=== PATIENT | female | born 1995 | race Caucasian/White ===

== ENCOUNTER 2018-03-07 15:52 | Outpatient (CLI) | payer MEDICAID ==
[2018-03-07 16:14] LABS: BILIRUBIN,URINE NEGATIVE (NEGATIVE); GLUCOSE, URINE (UA) NEGATIVE (NEGATIVE); KETONES,URINE (UA) NEGATIVE (NEGATIVE); LEUKOCYTE ESTERASE, URINE NEGATIVE (NEGATIVE); NITRITE,URINE NEGATIVE (NEGATIVE); OCCULT BLOOD,URINE MODERATE (NEGATIVE); PROTEIN,URINE TRACE mg/dL (NEGATIVE); UROBILINOGEN,URINE 0.2 (NORMAL) E.U./dL (NORMAL)
[2018-03-07 16:21] LABS: CLARITY,URINE HAZY (CLEAR)
[2018-03-07 16:22] LABS: BACTERIA,URINE Moderate /HPF (None Seen); MUCUS,URINE Few Strands; SQUAMOUS EPITHELIAL CELL,UR MANY Squamous (<= Few)
== END 2018-03-07 15:53 | disposition home or self-care (01) ==
LOC: LAB 15:52
PROVIDERS: ATTEND Physician Assistant
DX: R30.0 Dysuria (principal)
CPT/HCPCS: 81001; 81003; 87086

== ENCOUNTER 2019-04-29 14:02 | Outpatient (CLI) | payer MEDICAID | END 2019-04-29 14:03 | disposition short-term general hospital (02) | LOC: EMS 14:02 | PROVIDERS: ATTEND Surgery | DX: R13.10 Dysphagia, unspecified (principal); R07.89 Other chest pain | CPT/HCPCS: A0425; A0429; A0999 ==

== ENCOUNTER 2020-12-30 14:44 | Emergency (ER) | payer MEDICAID ==
--- OUTSIDE RECORDS SUMMARY | 2020-12-30 14:48 | EXTERNAL MEDICAL SUMMARY RPT | Continuity of Care Document ---
:1995 Demographics Phone Unavailable Preferred Language Malian Marital Status Unknown Yazidism Affiliation Unknown Race Unknown Ethnic Group Unknown Author Organization [place] Address [address] [phone] Phone Care Team Providers Name Role Phone Pillo Unavailable Unavailable Allergies Encounters Medications date description facility [id number] tramadol hydrochloride 50 MG Oral Table [facility] [id number] Baclofen 10 MG Oral Tablet [facility] [id number] Diazepam 10 MG Oral Tablet [facility] ital [id number] Diazepam 10 MG Oral Tablet [facility] ital [id number] Baclofen 10 MG Oral Tablet [facility] ital [id number] tramadol hydrochloride 50 MG Oral [facility] [id number] Trazodone Hydrochloride 100 MG Oral [facility] [id number] Diazepam 10 MG Oral Tablet [facility] ital [id number] Promethazine Hydrochloride 25 MG Oral [facility] Problems Procedures date description facility [id number] [facility] [id number] [facility] [id number] [facility] [id number] [facility] [id number] [facility] [id number] [facility] [id number] [facility] [id number] [facility] [id number] [facility] [id number] [facility] Results
[2020-12-30] MEDS ORDERED: HYDROmorphone 1 MG/ML CARPUJECT IVP STA ×2 (15:23→16:43)
--- NOTE | 2020-12-30 15:24 | ED Physician Documentation ---
PD HPI WOUND RECHECK - Stated complaint Stated Complaint: INCISION CHECK - Chief complaint Chief Complaint: Wound - Histroy obtained from History obtained from: Patient - Additional information Additional information: She had an oophorectomy on the right done laparoscopically at [facility] 3 days ago. Over the last couple of days has developed a productive cough, increased pain in the pelvis and redness around the suprapubic surgical site. She had a fever of 101.5 this morning. Review of Systems Ten Systems: 10 systems reviewed and negative Constitutional: reports: Fever, Chills Respiratory: reports: Dyspnea, Cough GI: reports: Abdominal Pain PD PAST MEDICAL HISTORY - Present Medications Home Medications: Ambulatory Orders Medication Instructions Recorded Confirmed Baclofen [Lioresal] 10 mg PO TID 12/30/20 12/30/20 Diazepam [Valium] 10 mg PO PRN PRN 12/30/20 12/30/20 Ibuprofen [Motrin] 600 mg PO Q6H PRN 12/30/20 12/30/20 Oxycodone HCl/Acetaminophen 1 - 2 each PO Q6H PRN #14 tablet 12/30/20 [Percocet 5-325 mg Tablet] Sertraline HCl 100 mg PO DAILY 12/30/20 12/30/20 Trazodone HCl 100 mg PO DAILY 12/30/20 12/30/20 levoFLOXacin [Levofloxacin] 500 mg PO DAILY #6 tablet 12/30/20 oxyCODONE [Roxicodone] 5 mg PO Q4-6H 12/30/20 12/30/20 traMADol [Ultram] 50 mg PO Q4-6H 12/30/20 12/30/20 - Allergies Allergies/Adverse Reactions: Allergies Allergy/AdvReac Type Severity Reaction Status Date / Time adhesive Allergy Rash Verified 12/30/20 16:01 Cephalosporins Allergy Hives Verified 12/30/20 16:01 latex Allergy Rash Verified 12/30/20 16:01 metoclopramide [From Reglan] Allergy Anaphylaxis Verified 12/30/20 16:01 Penicillins Allergy Hives Verified 12/30/20 16:01 prochlorperazine Allergy Anaphylaxis Verified 12/30/20 16:01 [From Compazine] PD ED PE NORMAL - Vitals Vital signs reviewed: Yes - General General: Alert and oriented X 3, No acute distress - HEENT HEENT: PERRL, EOMI - Neck Neck: Supple, no meningeal sign, No bony TTP - Cardiac Cardiac: RRR, No murmur - Respiratory Respiratory: No respiratory distress, Clear bilaterally - Abdomen Abdomen: Other (There is slight redness around the suprapubic laparoscopic site. No diffuse tenderness.) - Back Back: No CVA TTP, No spinal TTP - Derm Derm: Normal color, Warm and dry - Neuro Neuro: Alert and oriented X 3, Normal speech Results - Vitals Vitals: Vital Signs - 24 hr 12/30/20 12/30/20 14:51 15:37 Temperature 36.8 C Heart Rate 77 97 Respiratory 16 16 Rate Blood Pressure 117/51 L 105/45 L O2 Saturation 99 100 Oxygen O2 Source Room air - Labs Labs: Laboratory Tests 12/30/20 12/30/20 12/30/20 15:15 15:15 15:15 WBC 7.9 RBC 4.23 Hgb 12.7 Hct 37.2 MCV 87.9 MCH 30.0 MCHC 34.1 RDW 13.2 Plt Count 237 MPV 10.7 Neut # (Auto) 4.1 Lymph # (Auto) 2.8 Karnes # (Auto) 0.8 Eos # (Auto) 0.2 Baso # (Auto) 0.0 Absolute Nucleated RBC 0.00 Nucleated RBC % 0.0 Sodium 137 Potassium 4.2 Chloride 100 L Carbon Dioxide 25 Anion Gap 12.0 BUN 7 Creatinine 0.8 Estimated GFR (MDRD) 86 L Glucose 76 Lactic Acid 1.0 Calcium 9.1 Urine HCG, Qual 12/30/20 16:00 WBC RBC Hgb Hct MCV MCH MCHC RDW Plt Count MPV Neut # (Auto) Lymph # (Auto) Karnes # (Auto) Eos # (Auto) Baso # (Auto) Absolute Nucleated RBC Nucleated RBC % Sodium Potassium Chloride Carbon Dioxide Anion Gap BUN Creatinine Estimated GFR (MDRD) Glucose Lactic Acid Calcium Urine HCG, Qual NEGATIVE PD MEDICAL DECISION MAKING - ED course ED course: 25-year-old woman presents with postoperative fever a few days after an oophorectomy. She does have cellulitis around a suprapubic port site. But also productive cough. Chest x-ray was done without evidence of pneumonia. CT done showing no deep abscess, just the cellulitis seen on exam. Antibiotic choice is limited because of multiple allergies and she is given levofloxacin after review of these. Departure - Departure Disposition: 01 Home, Self Care Clinical Impression: Cough Fever Qualifiers: Fever type: due to other condition Qualified Code(s): R50.81 - Fever presenting with conditions classified elsewhere Cellulitis Qualifiers: Site of cellulitis of trunk: abdominal wall Condition: Good Record reviewed to determine appropriate education?: Yes Instructions: Cellulitis Dc Prescriptions: levoFLOXacin [Levofloxacin] 500 mg PO DAILY #6 tablet Oxycodone HCl/Acetaminophen [Percocet 5-325 mg Tablet] 1 - 2 each PO Q6H PRN #14 tablet PRN Reason: pain Comments: Prescriptions were sent electronically to [facility] in [place]. Return for new or worsening symptoms. Follow-up with your surgeon at [facility], next available appointment. I am prescribing a short course of narcotic pain medication for you. These are potentially dangerous and addictive medications that should be used carefully. These medications may constipate you. Take an grbj-sjb-wbdcucc stool softener (docusate) twice daily with plenty of water while taking these medications. If you go 24 hours without a bowel movement, take [id number] miralax, per package instructions. Do not drink or drive while taking these medications. If you received narcotic or sedating medications while in the emergency department, do not drive for 24 hours. Store this medication in a safe, secure place and out of reach of children. It is a violation of federal law to give or sell this medication to another person or to use in a manner other than prescribed. The ED will not refill narcotic prescriptions, including prescriptions lost or stolen. To dispose of unwanted medications: 1. [facility] at [address] in [place] has a medication drop box. They accept prescription medications (in pill form) Saturday through Saturday 9:00 a.m. to 5:00 p.m. 2. The [facility] [employer] accepts prescription medications (in pill form only) for disposal year round. Call for more information. 3. Contact the [facility] for the next [facility] sponsored prescription drug collection event. , [phone], or [phone]; Note that many narcotic pain relievers also contain Tylenol/acetaminophen. Please ensure that your total dose of acetaminophen from all sources does not exceed 3 g (3000 mg) per day.
[2020-12-30 15:29] LABS: BASOPHILS % (AUTO) 0.4 %; EOSINOPHILS # (AUTO) 0.2 10^3/uL (0.0-0.7); EOSINOPHILS % (AUTO) 2.7 %; HCT - HEMATOCRIT 37.2 % (37.0-47.0); HGB - HEMOGLOBIN 12.7 g/dL (12.0-16.0); LYMPHOCYTES # (AUTO) 2.8 10^3/uL (1.5-3.5); LYMPHOCYTES % (AUTO) 35.1 %; MEAN CORPUSCULAR HGB CONC 34.1 g/dL (32.0-36.0); MEAN CORPUSCULAR VOLUME 87.9 fL (81.0-99.0); MEAN PLATELET VOLUME 10.7 fL (7.9-10.8); MONOCYTES # (AUTO) 0.8 10^3/uL (0.0-1.0); MONOCYTES % (AUTO) 9.7 %; NEUTROPHILS # (AUTO) 4.1 10^3/uL (1.5-6.6); NEUTROPHILS % (AUTO) 51.8 %; PLT - PLATELET COUNT 237 10^3/uL (130-450); RED BLOOD COUNT 4.23 10^6/uL (4.20-5.40); RED CELL DISTRIBUTION WIDTH 13.2 % (12.0-15.0); WHITE BLOOD COUNT 7.9 x10^3/uL (4.8-10.8)
[2020-12-30 15:36] LABS: CALCIUM 9.1 mg/dL (8.5-10.3); CREATININE 0.8 mg/dL (0.4-1.0); POTASSIUM 4.2 mmol/L (3.5-5.0)
[2020-12-30] MEDS ORDERED: IOVERSOL 320 100 ML VIAL IVP ONE (15:41)
--- NOTE | 2020-12-30 15:54 | XRAY Report ---
PROCEDURE: Chest 2 View X-Ray INDICATIONS: cough TECHNIQUE: 2 view(s) of the chest. COMPARISON: None. FINDINGS: Surgical changes and devices: None. Lungs and pleura: No pleural effusions or pneumothorax. Lungs are clear. Mediastinum: Mediastinal contours are normal. Heart size is normal. Bones and chest wall: No suspicious bony abnormalities. Soft tissues appear unremarkable. IMPRESSION: No acute cardiopulmonary pathology. Reviewed by: Jimmy Espinoza MD on 12/30/2020 3:53 PM PDT Approved by: Jimmy Espinoza MD on 12/30/2020 3:53 PM PDT Station ID: [id number]
[2020-12-30 16:27] LABS: HCG UR QUAL NEGATIVE
--- NOTE | 2020-12-30 16:28 | CT Report ---
PROCEDURE: Abdomen/Pelvis WO INDICATIONS: POST OP ABD PAIN. Oophorectomy 3 days ago TECHNIQUE: Noncontrast 5 mm thick sections acquired from the diaphragms to the symphysis. 5 mm coronal and sagi ttal reformats were then performed. For radiation dose reduction, the following was used: automated exposure control, adjustment of mA and/or kV according to patient size. COMPARISON: None. FINDINGS: Image quality: Excellent. ABDOMEN: Lung bases: Lung bases are clear. Heart size is normal. Solid organs: Liver and spleen are normal in size. Gallbladder is unremarkable. Pancreas is normal in contours. No adrenal nodules. Kidneys are normal in size, without hydronephrosis or nephrolithi asis. Peritoneum and bowel: Unenhanced bowel loops demonstrate normal wall thickness and caliber. No free fluid. Trace postsurgical free air along the anterior surface of the liver. No abscess cavity. Surgic al clips in the region of the duodenal bulb. Nodes and vessels: No retroperitoneal or mesenteric adenopathy by size criteria. Aorta and inferior vena cava are normal in caliber. Miscellaneous: No ventral hernias. There is inflammatory change in the subcutaneous fat near midline approximately 8 cm inferior to the umbilicus, possibly postsurgical or possibly representing celluli tic change. No subcutaneous abscess or subcutaneous gas. PELVIS: Genitourinary: Bladder wall thickness is normal. Miscellaneous: No inguinal hernias or adenopathy. Uterus is surgically absent. Bones: No suspicious bony lesions. No vertebral body compression fractures. IMPRESSION: 1. There is minimal residual free air status post very recent pelvic surgery. 2. No abscess cavity. 3. Inflammatory change in the subcutaneous fat near midline approximately 8 cm inferior to the umbili cus. This may potentially be postsurgical or may represent mild cellulitic change. Suggest clinical c orrelation. Reviewed by: Bar Campbell MD on 12/30/2020 4:27 PM PDT Approved by: Bar Campbell MD on 12/30/2020 4:27 PM PDT Station ID: [id number]
[2020-12-30] MEDS ORDERED: levoFLOXacin 500 MG/100 ML 500 MG/100 ML BAG IV STA (16:43)
--- OUTSIDE RECORDS SUMMARY | 2020-12-30 16:44 | EXTERNAL MEDICAL SUMMARY RPT | Continuity of Care Document ---
:1995 Demographics Phone Unavailable Preferred Language American Marital Status Unknown Jewish Affiliation Unknown Race Unknown Ethnic Group Unknown Author Organization [place] Address [address] [phone] Phone Care Team Providers Name Role Phone Pillo Unavailable Unavailable Allergies Encounters Medications date description facility [id number] tramadol hydrochloride 50 MG Oral Table [facility] [id number] Baclofen 10 MG Oral Tablet [facility] 22392875 Diazepam 10 MG Oral Tablet [facility] ital [id number] Diazepam 10 MG Oral Tablet [facility] ital 50888119 Baclofen 10 MG Oral Tablet [facility] ital 87987030 tramadol hydrochloride 50 MG Oral [facility] 56205172 Trazodone Hydrochloride 100 MG Oral [facility] 80134876 Diazepam 10 MG Oral Tablet [facility] ital 56824529 Promethazine Hydrochloride 25 MG Oral [facility] Problems Procedures date description facility [id number] [facility] [id number] [facility] [id number] [facility] [id number] [facility] [id number] [facility] [id number] [facility] [id number] [facility] [id number] [facility] [id number] [facility] [id number] [facility] Results
[2020-12-30 18:09] VITALS: BP 103/72
== END 2020-12-30 18:29 | disposition home or self-care (01) ==
LOC: ED 14:44
DX: N99.89 Other postprocedural complications and disorders of genitourinary system (principal); L76.82 Other postprocedural complications of skin and subcutaneous tissue; L03.311 Cellulitis of abdominal wall; Y83.8 Other surgical procedures as the cause of abnormal reaction of the patient, or of later complication, without mention of misadventure at the time of the procedure
CPT/HCPCS: 36415; 71046; 74176; 80048; 81025; 83605; 85025; 87086; 96365; 96375; 96376; 99283; 99284; J1170

== ENCOUNTER 2021-02-21 16:46 | Outpatient (CLI) | payer MEDICAID | END 2021-02-21 16:47 | disposition critical access hospital (66) | LOC: EMS 16:46 | DX: R56.9 Unspecified convulsions (principal) | CPT/HCPCS: A0425; A0429; A0999 ==

== ENCOUNTER 2021-02-21 16:47 | Emergency (ER) | payer MEDICAID ==
[2021-02-21] MEDS ORDERED: HALOPERIDOL 5 MG/ML VIAL IVP ONE (17:21)
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
[2021-02-21 19:33] VITALS: BP 114/68
== END 2021-02-21 19:32 | disposition home or self-care (01) ==
LOC: EDUNIT# → ED 16:47
DX: R56.9 Unspecified convulsions (principal); Z87.820 Personal history of traumatic brain injury
CPT/HCPCS: 96374; 99283

== ENCOUNTER 2021-02-27 15:30 | Outpatient (CLI) | payer MEDICAID | END 2021-02-27 15:31 | disposition critical access hospital (66) | LOC: EMS 15:30 | DX: R56.9 Unspecified convulsions (principal) | CPT/HCPCS: A0425; A0427; A0999 ==

== ENCOUNTER 2021-02-27 15:45 | Emergency (ER) | payer MEDICAID ==
[2021-02-27] MEDS ORDERED: LORazepam 2 MG/ML VIAL IVP STA (16:02)
--- NOTE | 2021-02-27 16:04 | ED Physician Documentation ---
PD HPI SEIZURE - Stated complaint Stated Complaint: SEIZURE - Chief complaint Chief Complaint: Neuro - History obtained from History obtained from: Patient, Family, EMS - Additional information Additional information: 26-year-old woman with well-established pseudoseizures had an episode today where she fell and hit the her head on the linoleum tile. She presents with severe head and neck pain. She has not seized since the last time I saw her which was about 6 days ago for same. Mom did give her 5 mg of Haldol prior to arrival. Pain radiates down the spine. 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: Ovarian cysts : Kidney stones Psych: Post traumatic stress disorder - Past Surgical History Past Surgical History: Yes General: Appendectomy /OFFICE EQUIPMENT MECHANIC: Hysterectomy, Oophrectomy - Present Medications Home Medications: Ambulatory Orders Medication Instructions Recorded Confirmed Baclofen [Lioresal] 10 mg PO BID 12/30/20 02/27/21 Diazepam [Valium] 10 mg PO QID 12/30/20 02/27/21 Ibuprofen [Motrin] 600 mg PO Q6H PRN 12/30/20 02/27/21 Sertraline HCl 200 mg PO DAILY 12/30/20 02/27/21 Trazodone HCl 50 mg PO DAILY 12/30/20 02/27/21 traMADol [Ultram] 100 mg PO BID 12/30/20 02/27/21 haloperidoL [Haloperidol] 0.5 tab PO BID PRN #10 tablet 02/21/21 02/27/21 QUEtiapine [SEROquel] 1 tab PO HS 02/27/21 02/27/21 lamoTRIgine [LaMICtal] 1 tab PO DAILY 02/27/21 02/27/21 metFORMIN [Glucophage] 1 tab PO BID 02/27/21 02/27/21 - Allergies Allergies/Adverse Reactions: Allergies Allergy/AdvReac Type Severity Reaction Status Date / Time adhesive Allergy Rash Verified 02/27/21 16:56 Cephalosporins Allergy Hives Verified 02/27/21 16:56 latex Allergy Rash Verified 02/27/21 16:56 metoclopramide [From Reglan] Allergy Anaphylaxis Verified 02/27/21 16:56 Penicillins Allergy Hives Verified 02/27/21 16:56 prochlorperazine Allergy Anaphylaxis Verified 02/27/21 16:56 [From Compazine] all antibiotic except Allergy Anaphylaxis Uncoded 02/27/21 16:56 levaquin - Social History Does the pt smoke?: No Smoking Status: Never smoker Does the pt drink ETOH?: No Does the pt have substance abuse?: No - Immunizations Immunizations are current?: Yes PD ED PE NORMAL - Vitals Vital signs reviewed: Yes - General General: Alert and oriented X 3, Other (She is tearful and anxious) - HEENT HEENT: PERRL, EOMI - Neck Neck: Other (Diffuse spinal tenderness of the neck, c-collar placed during evaluation.) - Cardiac Cardiac: RRR, No murmur - Respiratory Respiratory: No respiratory distress, Clear bilaterally - Abdomen Abdomen: Normal bowel sounds, Soft, Non tender - Extremities Extremities: No deformity, No tenderness to palpate, Normal ROM s pain, No edema, No calf tenderness / cord - Neuro Neuro: Alert and oriented X 3, No motor deficit, No sensory deficit, Normal speech - Psych Psych: Normal mood, Normal affect Results - Vitals Vitals: Vital Signs - 24 hr 02/27/21 02/27/21 02/27/21 15:46 16:00 16:30 Temperature 36.9 C Heart Rate 93 68 69 Respiratory 16 16 18 Rate Blood Pressure 134/109 H 150/67 H 122/82 H O2 Saturation 97 100 98 02/27/21 02/27/21 17:06 17:30 Temperature Heart Rate 60 61 Respiratory 16 13 Rate Blood Pressure 111/45 L 110/48 L O2 Saturation 97 96 Oxygen O2 Source Room air - Rads (name of study) CT head/Cspine Radiology: EMP read contemporaneously (NAD) PD MEDICAL DECISION MAKING - ED course ED course: 26-year-old woman presents with head injury after nonepileptic seizure. Had more episodes here which were quickly resolved. Did well after some Haldol and Toradol here. Cranial imaging and C-spine imaging were negative. Departure - Departure Disposition: 01 Home, Self Care Clinical Impression: Psychogenic nonepileptic seizure Head injury Qualifiers: Encounter type: initial encounter Qualified Code(s): S09.90XA - Unspecified injury of head, initial encounter Condition: Good Record reviewed to determine appropriate education?: Yes Instructions: ED Head Injury Closed Comments: Continue current medications, follow-up with your psychiatrist. Return for new or worsening symptoms. Discharge Date/Time: 02/27/21 18:08
[2021-02-27] MEDS ORDERED: HALOPERIDOL 5 MG/ML VIAL IVP ONE (16:12)
[2021-02-27] MEDS ORDERED: MORPHINE 2 MG/ML CARPUJECT IVP STA (16:13)
--- NOTE | 2021-02-27 16:54 | CT Report ---
PROCEDURE: HEAD WO INDICATIONS: Trauma, head injury TECHNIQUE: Noncontrast 4.5 mm thick angled axial sections acquired from the foramen magnum to the vertex. For r adiation dose reduction, the following was used: automated exposure control, adjustment of mA and/or kV according to patient size. COMPARISON: None. FINDINGS: Image quality: Excellent. CSF spaces: Basal cisterns are patent. No extra-axial fluid collections. Ventricles are normal in size and shape. Brain: No midline shift. No intracranial masses or hemorrhage. Ohara-white matter interface is norm al. Skull and face: Calvarium and visualized facial bones are intact, without suspicious lesions. Sinuses: Visualized sinuses and mastoids are clear. IMPRESSION: No acute intracranial finding. Reviewed by: Mendez Miranda MD on 02/27/2021 4:53 PM PDT Approved by: Mendez Miranda MD on 02/27/2021 4:53 PM PDT Station ID: [id number]
--- NOTE | 2021-02-27 16:56 | CT Report ---
PROCEDURE: CERVICAL SPINE WO INDICATIONS: neck injury TECHNIQUE: Noncontrast 3 mm thick sections acquired from the skull base to the T4 level. Sagittal and coronal r eformats were then constructed. For radiation dose reduction, the following was used: automated exp osure control, adjustment of mA and/or kV according to patient size. COMPARISON: None. FINDINGS: Image quality: Excellent. Bones: No fractures or dislocations. Visualized superior ribs are intact. Soft tissues: Prevertebral soft tissues are normal in thickness. No paravertebral hematomas. No ap ical pneumothoraces. IMPRESSION: No CT evidence of acute traumatic cervical spine injury. Reviewed by: Mendez Miranda MD on 02/27/2021 4:55 PM PDT Approved by: Mendez Miranda MD on 02/27/2021 4:55 PM PDT Station ID: [id number]
[2021-02-27] MEDS ORDERED: KETOROLAC 15 MG/ML VIAL IVP STA (17:05)
[2021-02-27 18:07] VITALS: BP 110/48
== END 2021-02-27 18:08 | disposition home or self-care (01) ==
LOC: EDUNIT# → ED 15:45
DX: R56.9 Unspecified convulsions (principal); S09.90XA Unspecified injury of head, initial encounter; M54.2 Cervicalgia; W18.30XA Fall on same level, unspecified, initial encounter
CPT/HCPCS: 70450; 72125; 96374; 96375; 99284; 99285; J2060

== ENCOUNTER 2021-03-24 18:14 | Outpatient (CLI) | payer MEDICAID | END 2021-03-24 18:15 | disposition critical access hospital (66) | LOC: EMS 18:14 | DX: R56.9 Unspecified convulsions (principal) | CPT/HCPCS: A0425; A0427; A0999 ==

== ENCOUNTER 2021-03-24 18:29 | Emergency (ER) | payer MEDICAID ==
[2021-03-24] MEDS ORDERED: HALOPERIDOL 5 MG/ML VIAL IVP ONE (18:41)
[2021-03-24] MEDS ORDERED: KETOROLAC 30 MG/ML VIAL IVP STA (18:41)
--- NOTE | 2021-03-24 18:43 | ED Physician Documentation ---
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 Re portedly had 1 today with injuries of the head, neck, left shoulder, right elbow. Complains of mostly neck pain at this juncture. Had some shaking activity on route without loss of consciousness and was administered 2 mg of Versed prior to arrival by EMS. 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: Ovarian cysts : Kidney stones Psych: Post traumatic stress disorder - Past Surgical History Past Surgical History: Yes General: Appendectomy /POURER BULL LADLE: Hysterectomy, Oophrectomy - Present Medications Home Medications: Ambulatory Orders Medication Instructions Recorded Confirmed Baclofen [Lioresal] 10 mg PO BID 12/30/20 02/27/21 Diazepam [Valium] 10 mg PO QID 12/30/20 02/27/21 Ibuprofen [Motrin] 600 mg PO Q6H PRN 12/30/20 02/27/21 Sertraline HCl 200 mg PO DAILY 12/30/20 02/27/21 Trazodone HCl 50 mg PO DAILY 12/30/20 02/27/21 traMADol [Ultram] 100 mg PO BID 12/30/20 02/27/21 haloperidoL [Haloperidol] 0.5 tab PO BID PRN #10 tablet 02/21/21 02/27/21 QUEtiapine [SEROquel] 1 tab PO HS 02/27/21 02/27/21 lamoTRIgine [LaMICtal] 1 tab PO DAILY 02/27/21 02/27/21 metFORMIN [Glucophage] 1 tab PO BID 02/27/21 02/27/21 - Allergies Allergies/Adverse Reactions: Allergies Allergy/AdvReac Type Severity Reaction Status Date / Time adhesive Allergy Rash Verified 03/24/21 18:59 Cephalosporins Allergy Hives Verified 03/24/21 18:59 latex Allergy Rash Verified 03/24/21 18:59 metoclopramide [From Reglan] Allergy Anaphylaxis Verified 03/24/21 18:59 Penicillins Allergy Hives Verified 03/24/21 18:59 prochlorperazine Allergy Anaphylaxis Verified 03/24/21 18:59 [From Compazine] all antibiotic except Allergy Anaphylaxis Uncoded 03/24/21 18:59 levaquin - Social History Does the pt smoke?: No Smoking Status: Never smoker Does the pt drink ETOH?: No Does the pt have substance abuse?: No - Immunizations Immunizations are current?: Yes PD ED PE NORMAL - Vitals Vital signs reviewed: Yes - General General: Alert and oriented X 3, No acute distress - HEENT HEENT: PERRL, EOMI - Neck Neck: Other (Maintained in a c-collar given mild upper C-spine tenderness) - Cardiac Cardiac: RRR, No murmur - Respiratory Respiratory: No respiratory distress, Clear bilaterally - Abdomen Abdomen: Normal bowel sounds, Soft, Non tender - Back Back: No CVA TTP, No spinal TTP - Derm Derm: Normal color, Warm and dry - Extremities Extremities: Other (Mild tenderness about the left elbow and right shoulder, full range of motion of both.) - Neuro Neuro: Alert and oriented X 3, No motor deficit, No sensory deficit, Normal speech Eye Opening: Spontaneous Motor: Obeys Commands Verbal: Oriented GCS Score: 15 Results - Vitals Vitals: Vital Signs - 24 hr 03/24/21 18:51 Temperature 36.4 C L Heart Rate 63 Respiratory 16 Rate Blood Pressure 126/80 O2 Saturation 100 Oxygen O2 Source Room air - Labs Labs: Laboratory Tests 03/24/21 03/24/21 19:15 19:15 WBC 5.1 RBC 4.10 L Hgb 13.0 Hct 37.5 MCV 91.5 MCH 31.7 H MCHC 34.7 RDW 13.2 Plt Count 196 MPV 9.6 Neut # (Auto) 2.4 Lymph # (Auto) 2.1 [place] # (Auto) 0.5 Eos # (Auto) 0.1 Baso # (Auto) 0.0 Absolute Nucleated RBC 0.00 Nucleated RBC % 0.0 Sodium 136 Potassium 3.7 Chloride 102 Carbon Dioxide 27 Anion Gap 7.0 BUN 7 Creatinine 0.8 Estimated GFR (MDRD) 85 L Glucose 91 Calcium 9.0 - Rads (name of study) CT of the head, cervical spine, and x-ray of the left shoulder and right elbow are all normal Radiology: EMP read contemporaneously PD MEDICAL DECISION MAKING - ED course ED course: After removal of the c-collar and the initial images were reviewed, she was complaining more of left knee pain. She had mild tenderness anteriorly. No effusion. Mildly limited range of motion in flexion due to pain. X-rays were ordered. 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 Relevant imaging was negative. She is undergoing intensive therapy with her psychiatrist with medication management and I am deferring to her psychiatrist for ongoing medication management. Departure - Departure Disposition: 01 Home, Self Care Clinical Impression: Psychogenic nonepileptic seizure Head injury Qualifiers: Encounter type: initial encounter Qualified Code(s): S09.90XA - Unspecified injury of head, initial encounter Contusion of left shoulder Qualifiers: Encounter type: initial encounter Qualified Code(s): S40.012A - Contusion of left shoulder, initial encounter Contusion of right forearm Qualifiers: Encounter type: initial encounter Qualified Code(s): S50.11XA - Contusion of right forearm, initial encounter Contusion of left knee Qualifiers: Encounter type: initial encounter Qualified Code(s): S80.02XA - Contusion of left knee, initial encounter Condition: Good Record reviewed to determine appropriate education?: Yes Instructions: ED Head Injury Closed Comments: Continue current medications as prescribed by her psychiatrist and their plan of care. Return for new or worsening symptoms. No driving until this is all under control. Return if worsening. Also reasonable to find a counselor, recommend you log into your insurance company's website to see who is in network and go from there.
--- NOTE | 2021-03-24 19:15 | CT Report ---
PROCEDURE: CERVICAL SPINE WO INDICATIONS: neck injury TECHNIQUE: Noncontrast 3 mm thick sections acquired from the skull base to the T4 level. Sagittal and coronal r eformats were then constructed. For radiation dose reduction, the following was used: automated exp osure control, adjustment of mA and/or kV according to patient size. COMPARISON: None. FINDINGS: Image quality: Excellent. Bones: No fractures or dislocations. Visualized superior ribs are intact. Soft tissues: Prevertebral soft tissues are normal in thickness. No paravertebral hematomas. No ap ical pneumothoraces. IMPRESSION: No fracture. No acute osseous lesion. If there is continued clinical concern for pathology, then MRI should be considered for further evaluation. Reviewed by: Anahi Falk MD, PhD on 03/24/2021 7:14 PM PDT Approved by: Anahi Falk MD, PhD on 03/24/2021 7:14 PM PDT Station ID: [id number]
--- NOTE | 2021-03-24 19:17 | XRAY Report ---
PROCEDURE: Elbow 3 View RT INDICATIONS: elbow inj TECHNIQUE: 3 views of the elbow were acquired. COMPARISON: None FINDINGS: Bones: No fractures or dislocations. No suspicious bony lesions. Soft tissues: No elbow joint effusion. No suspicious soft tissue calcifications. IMPRESSION: No fracture. No osseous lesion. If there are persistent symptoms or continued clinical concern for pa thology, then repeat plain film radiographs (7-10 days) or advanced imaging (CT, MR, bone scan) shoul d be considered for further evaluation. Reviewed by: Anahi Falk MD, PhD on 03/24/2021 7:16 PM PDT Approved by: Anahi Falk MD, PhD on 03/24/2021 7:16 PM PDT Station ID: [id number]
--- NOTE | 2021-03-24 19:17 | CT Report ---
PROCEDURE: HEAD WO INDICATIONS: head injury TECHNIQUE: Noncontrast 4.5 mm thick angled axial sections acquired from the foramen magnum to the vertex. For r adiation dose reduction, the following was used: automated exposure control, adjustment of mA and/or kV according to patient size. COMPARISON: None. FINDINGS: Image quality: Excellent. CSF spaces: Basal cisterns are patent. No extra-axial fluid collections. Ventricles are normal in size and shape. Brain: No midline shift. No intracranial masses or hemorrhage. [place]-white matter interface is norm al. Skull and face: Calvarium and visualized facial bones are intact, without suspicious lesions. Sinuses: Visualized sinuses and mastoids are clear. IMPRESSION: No acute intracranial disease process. Reviewed by: Anahi Falk MD, PhD on 03/24/2021 7:15 PM PDT Approved by: Anahi Falk MD, PhD on 03/24/2021 7:15 PM PDT Station ID: [id number]
--- NOTE | 2021-03-24 19:18 | XRAY Report ---
PROCEDURE: Shoulder 3 View LT INDICATIONS: shoulder injury TECHNIQUE: 3 views of the shoulder were acquired. COMPARISON: None. FINDINGS: Bones: No fractures or dislocations. No suspicious bony lesions. Visualized ribs appear intact. Soft tissues: No suspicious soft tissue calcifications. IMPRESSION: No fracture. No osseous lesion. If there are persistent symptoms or continued clinical c oncern for pathology, then repeat plain film radiographs (7-10 days) or advanced imaging (CT, MR, bon e scan) should be considered for further evaluation. Reviewed by: Anahi Falk MD, PhD on 03/24/2021 7:17 PM PDT Approved by: Anahi Falk MD, PhD on 03/24/2021 7:17 PM PDT Station ID: [email or web address]
[2021-03-24 19:20] LABS: BASOPHILS % (AUTO) 0.4 %; EOSINOPHILS # (AUTO) 0.1 10^3/uL (0.0-0.7); HCT - HEMATOCRIT 37.5 % (37.0-47.0); LYMPHOCYTES # (AUTO) 2.1 10^3/uL (1.5-3.5); LYMPHOCYTES % (AUTO) 41.3 %; MEAN CORPUSCULAR HEMOGLOBIN 31.7 pg (27.0-31.0); MEAN CORPUSCULAR HGB CONC 34.7 g/dL (32.0-36.0); MEAN CORPUSCULAR VOLUME 91.5 fL (81.0-99.0); MEAN PLATELET VOLUME 9.6 fL (7.9-10.8); MONOCYTES # (AUTO) 0.5 10^3/uL (0.0-1.0); MONOCYTES % (AUTO) 10.2 %; NEUTROPHILS # (AUTO) 2.4 10^3/uL (1.5-6.6); NEUTROPHILS % (AUTO) 47.1 %; PLT - PLATELET COUNT 196 10^3/uL (130-450); RED CELL DISTRIBUTION WIDTH 13.2 % (12.0-15.0); WHITE BLOOD COUNT 5.1 x10^3/uL (4.8-10.8)
[2021-03-24 19:31] LABS: CREATININE 0.8 mg/dL (0.4-1.0); POTASSIUM 3.7 mmol/L (3.5-5.0)
[2021-03-24] MEDS ORDERED: MORPHINE 2 MG/ML CARPUJECT IVP STA (19:48)
[2021-03-24] MEDS ORDERED: diphenhydrAMINE 25 MG CAPSULE PO STA (20:08)
--- NOTE | 2021-03-24 20:34 | XRAY Report ---
PROCEDURE: Knee 4 View LT INDICATIONS: knee inj TECHNIQUE: 4 views of the left knee(s) were acquired. COMPARISON: None. FINDINGS: Bones: No fractures or dislocations. No suspicious bony lesions. Soft tissues: No joint effusion. No suspicious soft tissue calcifications. IMPRESSION: No fracture. No osseous lesion. If there are persistent symptoms or continued clinical c oncern for pathology, then repeat plain film radiographs (7-10 days) or advanced imaging (CT, MR, bon e scan) should be considered for further evaluation. Reviewed by: Anahi Falk MD, PhD on 03/24/2021 8:32 PM PDT Approved by: Anahi Falk MD, PhD on 03/24/2021 8:32 PM PDT Station ID: [email or web address]
[2021-03-24 21:23] VITALS: BP 112/73
== END 2021-03-24 21:00 | disposition home or self-care (01) ==
LOC: EDUNIT# → ED 18:29 → SUPCPDRO 18:29 → ED 21:00
DX: R56.9 Unspecified convulsions (principal); S09.90XA Unspecified injury of head, initial encounter; M54.2 Cervicalgia; S40.012A Contusion of left shoulder, initial encounter; S50.11XA Contusion of right forearm, initial encounter; S80.02XA Contusion of left knee, initial encounter; X58.XXXA Exposure to other specified factors, initial encounter
CPT/HCPCS: 36415; 70450; 72125; 73030; 73080; 73564; 80048; 85025; 96374; 96375; 99284; A9270

== ENCOUNTER 2021-06-16 17:41 | Emergency (ER) | payer MEDICAID ==
[2021-06-16 18:20] LABS: BASOPHILS % (AUTO) 0.1 %; EOSINOPHILS # (AUTO) 0.1 10^3/uL (0.0-0.7); EOSINOPHILS % (AUTO) 0.8 %; HCT - HEMATOCRIT 41.9 % (37.0-47.0); HGB - HEMOGLOBIN 14.2 g/dL (12.0-16.0); LYMPHOCYTES % (AUTO) 11.9 %; MEAN CORPUSCULAR HEMOGLOBIN 31.4 pg (27.0-31.0); MEAN CORPUSCULAR HGB CONC 33.9 g/dL (32.0-36.0); MEAN CORPUSCULAR VOLUME 92.7 fL (81.0-99.0); MEAN PLATELET VOLUME 9.5 fL (7.9-10.8); MONOCYTES # (AUTO) 0.5 10^3/uL (0.0-1.0); MONOCYTES % (AUTO) 5.7 %; NEUTROPHILS # (AUTO) 6.8 10^3/uL (1.5-6.6); NEUTROPHILS % (AUTO) 81.3 %; PLT - PLATELET COUNT 249 10^3/uL (130-450); RED BLOOD COUNT 4.52 10^6/uL (4.20-5.40); RED CELL DISTRIBUTION WIDTH 12.7 % (12.0-15.0); WHITE BLOOD COUNT 8.4 x10^3/uL (4.8-10.8)
[2021-06-16 18:32] LABS: ALBUMIN 4.8 g/dL (3.2-5.5); ALBUMIN/GLOBULIN RATIO 1.5 (1.0-2.2); CALCIUM 9.5 mg/dL (8.5-10.3); CREATININE 0.7 mg/dL (0.4-1.0); POTASSIUM 3.9 mmol/L (3.5-5.0); TOTAL PROTEIN 8.1 g/dL (6.7-8.2)
[2021-06-16 18:43] LABS: BILIRUBIN,URINE NEGATIVE (NEGATIVE); GLUCOSE, URINE (UA) NEGATIVE (NEGATIVE); KETONES,URINE (UA) NEGATIVE (NEGATIVE); LEUKOCYTE ESTERASE, URINE TRACE (NEGATIVE); NITRITE,URINE NEGATIVE (NEGATIVE); OCCULT BLOOD,URINE LARGE (NEGATIVE); PH,URINE 5.5 PH (5.0-7.5); PROTEIN,URINE NEGATIVE (NEGATIVE); UROBILINOGEN,URINE 0.2 (NORMAL) E.U./dL (NORMAL)
--- NOTE | 2021-06-16 18:44 | ED Physician Documentation ---
History of Present Illness - Stated complaint Stated Complaint: PX IN BACK & URINATING/NAUSEA - Chief complaint Chief Complaint: Abd Pain - History obtained from History obtained from: Patient, Family - History of Present Illness Timing: Today Pain level max: 5 Pain level now: 4 - Additonal information Additional information: 26-year-old female complains of left flank and left lower quadrant abdominal pain. Worsening today. History of kidney stones and states that this feels similar. Complains of hematuria as well. She has had a hysterectomy and the right ovary has been removed. Does have a history of ovarian cyst. While the patient was in the waiting room she did have seizure-like activity, fell struck her head in the bathroom. Patient has a longstanding history of pseudoseizures. She is still undergoing intensive psychiatric care. Review of Systems Ten Systems: 10 systems reviewed and negative Constitutional: denies: Fever, Chills Nose: denies: Rhinorrhea / runny nose, Congestion Respiratory: denies: Cough GI: denies: Nausea, Vomiting, Diarrhea, Hematemesis, Bloody / black stool : reports: Hysterectomy. 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: Hysterectomy, Oophrectomy - Present Medications Home Medications: Ambulatory Orders Medication Instructions Recorded Confirmed Baclofen [Lioresal] 10 mg PO BID 12/30/20 06/16/21 Diazepam [Valium] 10 mg PO QID 12/30/20 06/16/21 Sertraline HCl 200 mg PO DAILY 12/30/20 06/16/21 traMADol [Ultram] 100 mg PO BID 12/30/20 06/16/21 QUEtiapine [SEROquel] 1 tab PO DAILY 02/27/21 06/16/21 lamoTRIgine [LaMICtal] 200 mg PO DAILY 02/27/21 06/16/21 metFORMIN [Glucophage] 1 tab PO BID 02/27/21 06/16/21 Oxycodone HCl/Acetaminophen 1 - 2 each PO Q6H PRN #14 tablet 06/16/21 [Percocet 5-325 mg Tablet] QUEtiapine [SEROquel] 100 mg PO HS 06/16/21 06/16/21 - Allergies Allergies/Adverse Reactions: Allergies Allergy/AdvReac Type Severity Reaction Status Date / Time adhesive Allergy Rash Verified 06/16/21 17:52 Cephalosporins Allergy Hives Verified 06/16/21 17:52 Iodinated Contrast Media Allergy Anaphylaxis Verified 06/16/21 21:08 latex Allergy Rash Verified 06/16/21 17:52 lidocaine Allergy Unknown Verified 06/16/21 21:08 metoclopramide [From Reglan] Allergy Anaphylaxis Verified 06/16/21 17:52 Penicillins Allergy Hives Verified 06/16/21 17:52 prochlorperazine Allergy Anaphylaxis Verified 06/16/21 17:52 [From Compazine] all antibiotic except Allergy Anaphylaxis Uncoded 06/16/21 17:52 levaquin - Social History Does the pt smoke?: No Smoking Status: Never smoker Does the pt drink ETOH?: No Does the pt have substance abuse?: No - Immunizations Immunizations are current?: Yes PD ED PE NORMAL - Vitals Vital signs reviewed: Yes - General General: Alert and oriented X 3, No acute distress, Well developed/nourished - HEENT HEENT: Atraumatic, PERRL, Moist mucous membranes - Neck Neck: Supple, no meningeal sign, No bony TTP - Cardiac Cardiac: RRR, Strong equal pulses - Respiratory Respiratory: No respiratory distress, Clear bilaterally - Abdomen Abdomen: Soft, Non distended, Other (Tender to palpation left lower quadrant. 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, No motor deficit, No sensory deficit, Normal speech - Psych Psych: Normal mood, Normal affect Results - Vitals Vitals: Vital Signs - 24 hr 06/16/21 06/16/21 06/16/21 17:49 19:03 21:00 Temperature 36.4 C L 36.6 C Heart Rate 94 93 90 Respiratory 18 17 12 Rate Blood Pressure 136/68 H 124/63 128/62 O2 Saturation 100 100 99 06/16/21 22:22 Temperature 36.7 C Heart Rate 85 Respiratory 13 Rate Blood Pressure 118/57 L O2 Saturation 100 Oxygen O2 Source Room air - Labs Labs: Laboratory Tests 06/16/21 06/16/21 06/16/21 18:15 18:15 18:30 WBC 8.4 RBC 4.52 Hgb 14.2 Hct 41.9 MCV 92.7 MCH 31.4 H MCHC 33.9 RDW 12.7 Plt Count 249 MPV 9.5 Neut # (Auto) 6.8 H Lymph # (Auto) 1.0 L [place] # (Auto) 0.5 Eos # (Auto) 0.1 Baso # (Auto) 0.0 Absolute Nucleated RBC 0.00 Nucleated RBC % 0.0 Sodium 136 Potassium 3.9 Chloride 98 L Carbon Dioxide 28 Anion Gap 10.0 BUN 13 Creatinine 0.7 Estimated GFR (MDRD) 100 Glucose 95 Calcium 9.5 Total Bilirubin 1.0 AST 21 ALT 28 Alkaline Phosphatase 67 Total Protein 8.1 Albumin 4.8 Globulin 3.3 Albumin/Globulin Ratio 1.5 Lipase 26 Urine Color LT RED Urine Clarity HAZY Urine pH 5.5 Ur Specific [place] <=1.005 Urine Protein NEGATIVE Urine Glucose (UA) NEGATIVE Urine Ketones NEGATIVE Urine Occult Blood LARGE H Urine Nitrite NEGATIVE Urine Bilirubin NEGATIVE Urine Urobilinogen 0.2 (NORMAL) Ur Leukocyte Esterase TRACE H Urine RBC TNTC H Urine WBC 0-3 Ur Squamous Epith Cells MOD Squamous H Urine Bacteria Moderate H Ur Microscopic Review INDICATED Urine Culture Comments NOT INDICATED Urine HCG, Qual NEGATIVE - Rads (name of study) head CT Radiology: Final report received, EMP read contemporaneously, See rad report (No CT evidence of acute intracranial process. ) c-spine CT Radiology: Final report received, EMP read contemporaneously, See rad report (Intact cervical spine. ) ct abd.pelvis Radiology: Final report received, EMP read contemporaneously, See rad report (1. Multilobulated left ovary without surrounding inflammation or fluid. 2. No evidence of left-sided hydronephrosis or of structures uropathy. 3. Mild hepatic steatosis. ) PD MEDICAL DECISION MAKING - ED course Complexity details: reviewed results, re-evaluated patient, considered differential, d/w patient, d/w family ED course: 26-year-old female with left-sided abdominal pain. Unclear etiology, but could be related to an ovarian cyst. She does have lobulated left ovary. Does have a history of ovarian cyst. We discussed a pelvic ultrasound but she will follow this up with her doctor if she continues to have pain. Will place on pain medication for home. No further seizure activity in the emergency department. Normal head CT and cervical spine CT after her fall and head injury in the bathroom. C-collar removed after the cervical spine CT was read and normal. Patient counseled regarding signs and symptoms for which I believe and urgent re-evaluation would be necessary. Patient with good understanding of and agreement to plan and is comfortable going home at this time This document was made in part using voice recognition software. While efforts are made to proofread this document, sound alike and grammatical errors may occur. I am prescribing a short course of short-acting opioid pain medication for this patient. I have reviewed the patients OFFICE ADMIN and no concerning findings were noted. I have discussed that the opioids are for short term therapy only, and will not be refilled from the ED. Departure - Departure Disposition: Home, Self Care Clinical Impression: Pseudoseizures Ovarian cyst Qualifiers: Laterality: left Qualified Code(s): N83.202 - Unspecified ovarian cyst, left side Abdominal pain Qualifiers: Abdominal location: unspecified location Qualified Code(s): R10.9 - Unspecified abdominal pain Closed head injury Qualifiers: Encounter type: initial encounter Qualified Code(s): S09.90XA - Unspecified injury of head, initial encounter Condition: Good Instructions: ED Cyst Ovarian, ED Pelvic Pain [facility] Follow-Up: Maggie Ferro DO [Primary Care Provider] - Within 1 week Prescriptions: Oxycodone HCl/Acetaminophen [Percocet 5-325 mg Tablet] 1 - 2 each PO Q6H PRN #14 tablet PRN Reason: pain Comments: [facility] [place]. Please follow-up with your doctor for further care. If you are continuing to have pain in 1 to 2 weeks, they should perform a pelvic ultrasound to ensure the cysts are resolving I am prescribing a short course of narcotic pain medication for you. These are potentially dangerous and addictive medications that should be used carefully. These medications may constipate you. Take an iahv-bqs-fcgllut stool softener (docusate) twice daily with plenty of water while taking these medications. If you go 24 hours without a bowel movement, take [id number] miralax, per package instructions. Do not drink or drive while taking these medications. If you received narcotic or sedating medications while in the emergency department, do not drive for 24 hours. Store this medication in a safe, secure place and out of reach of children. It is a violation of federal law to give or sell this medication to another person or to use in a manner other than prescribed. The ED will not refill narcotic prescriptions, including prescriptions lost or stolen. To dispose of unwanted medications: 1. [facility] [address] in [place] has a medication drop box. They accept prescription medications (in pill form) Saturday through Saturday 9:00 a.m. to 5:00 p.m. 2. The [facility] accepts prescription medications (in pill form only) for disposal year round. Call for more information. 3. Contact the [facility] for the next [facility] sponsored prescription drug collection event. , [phone], or [phone]; Discharge Date/Time: 06/16/21 22:25
[2021-06-16 18:46] LABS: CLARITY,URINE HAZY (CLEAR); HCG UR QUAL NEGATIVE
[2021-06-16 19:01] LABS: BACTERIA,URINE Moderate /HPF (None Seen); RBC,URINE TNTC /HPF (0-5); SQUAMOUS EPITHELIAL CELL,UR MOD Squamous (<= Few); WBC,URINE 0-3 /HPF (0-5)
[2021-06-16] MEDS ORDERED: LORazepam 2 MG/ML VIAL IVP STA (19:22)
--- NOTE | 2021-06-16 20:26 | CT Report ---
PROCEDURE: CERVICAL SPINE WO INDICATIONS: seizure, neck injury TECHNIQUE: Noncontrast 3 mm thick sections acquired from the skull base to the T4 level. Sagittal and coronal r eformats were then constructed. For radiation dose reduction, the following was used: automated exp osure control, adjustment of mA and/or kV according to patient size. COMPARISON: None. FINDINGS: Image quality: Excellent. Bones: No fractures or dislocations. Visualized superior ribs are intact. Soft tissues: Prevertebral soft tissues are normal in thickness. No paravertebral hematomas. No ap ical pneumothoraces. IMPRESSION: Intact cervical spine. Reviewed by: Fannie Ramos MD on 06/16/2021 8:25 PM PST Approved by: Fannie Ramos MD on 06/16/2021 8:25 PM PST Station ID: [id number]
--- NOTE | 2021-06-16 20:28 | CT Report ---
PROCEDURE: HEAD WO INDICATIONS: seizure, head injury TECHNIQUE: Noncontrast 4.5 mm thick angled axial sections acquired from the foramen magnum to the vertex. For r adiation dose reduction, the following was used: automated exposure control, adjustment of mA and/or kV according to patient size. COMPARISON: 03/24/2021 FINDINGS: Image quality: Excellent. CSF spaces: Basal cisterns are patent. No extra-axial fluid collections. Ventricles are normal in size and shape. Brain: No midline shift. No intracranial masses or hemorrhage. [place]-white matter interface is norm al. Skull and face: Calvarium and visualized facial bones are intact, without suspicious lesions. Sinuses: Visualized sinuses and mastoids are clear. IMPRESSION: 1. No CT evidence of acute intracranial process. 2. No evidence of skull fracture. Reviewed by: Fannie Ramos MD on 06/16/2021 8:26 PM PST Approved by: Fannie Ramos MD on 06/16/2021 8:26 PM PST Station ID: [id number]
[2021-06-16] MEDS ORDERED: HYDROmorphone 1 MG/ML CARPUJECT IVP STA ×2 (20:52→21:55)
[2021-06-16] MEDS ORDERED: IOVERSOL 320 100 ML VIAL IVP ONE (21:04)
--- NOTE | 2021-06-16 21:41 | CT Report ---
PROCEDURE: Abdomen/Pelvis WO INDICATIONS: L flank and LLQ pain TECHNIQUE: Noncontrast 5 mm thick sections acquired from the diaphragms to the symphysis. 5 mm coronal and sagi ttal reformats were then performed. For radiation dose reduction, the following was used: automated exposure control, adjustment of mA and/or kV according to patient size. COMPARISON: None. FINDINGS: Image quality: Excellent. ABDOMEN: Lung bases: Lung bases are clear. Heart size is normal. Solid organs: Mild hepatomegaly and hepatic steatosis with relative sparing in the gallbladder fossa. Mild splenomegaly. The gallbladder is normal. No adrenal nodules. Normal pancreas. Normal kidneys wi thout hydronephrosis or perinephric inflammation. Peritoneum and bowel: There is hyperdense material along the lateral wall of the pylorus, potentiall y prior ulcer repair. The appendix is surgically absent. Bowel loops are otherwise normal. No free fl uid or air. Nodes and vessels: No retroperitoneal or mesenteric adenopathy by size criteria. Aorta and inferior vena cava are normal in caliber. Miscellaneous: No ventral hernias. PELVIS: Genitourinary: Bladder wall thickness is normal. Multilobulated left ovary without surrounding flui d. The uterus is surgically absent. Right ovarian tissue is not seen. Miscellaneous: No inguinal hernias or adenopathy. Bones: No suspicious bony lesions. No vertebral body compression fractures. IMPRESSION: 1. Multilobulated left ovary without surrounding inflammation or fluid. 2. No evidence of left-sided hydronephrosis or of structures uropathy. 3. Mild hepatic steatosis. Reviewed by: Fannie Ramos MD on 06/16/2021 9:39 PM PST Approved by: Fannie Ramos MD on 06/16/2021 9:39 PM PST Station ID: [id number]
[2021-06-16] MEDS ORDERED: oxyCODONE 5 MG TABLET PO STA (21:55)
[2021-06-16 22:24] VITALS: BP 118/57
== END 2021-06-16 22:25 | disposition home or self-care (01) ==
LOC: ED 17:41
DX: R56.9 Unspecified convulsions (principal); N83.202 Unspecified ovarian cyst, left side; R10.32 Left lower quadrant pain; S09.90XA Unspecified injury of head, initial encounter; W18.39XA Other fall on same level, initial encounter; Y92.538 Other ambulatory health services establishments as the place of occurrence of the external cause; Z90.710 Acquired absence of both cervix and uterus; Z90.721 Acquired absence of ovaries, unilateral; Z87.442 Personal history of urinary calculi
CPT/HCPCS: 36415; 70450; 72125; 74176; 80053; 81001; 81025; 83690; 85025; 96374; 96375; 96376; 99284; A9270; J1170; J2060; 81003; 87086

== ENCOUNTER 2021-07-28 16:37 | Outpatient (CLI) | payer MEDICAID | END 2021-07-28 16:38 | disposition critical access hospital (66) | LOC: EMS 16:37 | DX: R56.9 Unspecified convulsions (principal) | CPT/HCPCS: A0425; A0427; A0999 ==

== ENCOUNTER 2021-07-28 16:56 | Emergency (ER) | payer MEDICAID ==
[2021-07-28] MEDS ORDERED: HALOPERIDOL 5 MG/ML VIAL IVP ONE (17:46)
--- NOTE | 2021-07-28 17:51 | ED Physician Documentation ---
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 She is unable to provide a history because she is pseudoseizing on exam. Discussed with her mom. She been under a lot of stress lately. She did take her regular meds today. 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: Hysterectomy, Oophrectomy - Present Medications Home Medications: Ambulatory Orders Medication Instructions Recorded Confirmed Baclofen [Lioresal] 10 mg PO BID 12/30/20 06/16/21 Diazepam [Valium] 10 mg PO QID 12/30/20 06/16/21 Sertraline HCl 200 mg PO DAILY 12/30/20 06/16/21 traMADol [Ultram] 100 mg PO BID 12/30/20 06/16/21 QUEtiapine [SEROquel] 1 tab PO DAILY 02/27/21 06/16/21 lamoTRIgine [LaMICtal] 200 mg PO DAILY 02/27/21 06/16/21 metFORMIN [Glucophage] 1 tab PO BID 02/27/21 06/16/21 Oxycodone HCl/Acetaminophen 1 - 2 each PO Q6H PRN #14 tablet 06/16/21 [Percocet 5-325 mg Tablet] QUEtiapine [SEROquel] 100 mg PO HS 06/16/21 06/16/21 haloperidoL [Haldol] 0.5 mg PO BID PRN #20 tablet 07/28/21 - Allergies Allergies/Adverse Reactions: Allergies Allergy/AdvReac Type Severity Reaction Status Date / Time adhesive Allergy Rash Verified 07/28/21 17:09 Cephalosporins Allergy Hives Verified 07/28/21 17:09 Iodinated Contrast Media Allergy Anaphylaxis Verified 07/28/21 17:09 latex Allergy Rash Verified 07/28/21 17:09 lidocaine Allergy Unknown Verified 07/28/21 17:09 metoclopramide [From Reglan] Allergy Anaphylaxis Verified 07/28/21 17:09 Penicillins Allergy Hives Verified 07/28/21 17:09 prochlorperazine Allergy Anaphylaxis Verified 07/28/21 17:09 [From Compazine] all antibiotic except Allergy Anaphylaxis Uncoded 06/16/21 17:52 levaquin - Social History Does the pt smoke?: No Smoking Status: Never smoker Does the pt drink ETOH?: No Does the pt have substance abuse?: No - Immunizations Immunizations are current?: Yes PD ED PE NORMAL - Vitals Vital signs reviewed: Yes - General General: Other (She has eye fluttering and high-frequency oscillations of the arms and legs. She is able to be distracted from this and makes eye contact but then will start it again. 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 Eye Opening: Spontaneous Motor: Obeys Commands Verbal: Oriented (Seizing, there is no postictal period between seizing.) GCS Score: 15 Results - Vitals Vitals: Vital Signs - 24 hr 07/28/21 07/28/21 07/28/21 17:09 17:23 17:55 Temperature 36.6 C 36.7 C Heart Rate 77 86 90 Respiratory 20 17 16 Rate Blood Pressure 150/137 H 150/137 H 141/93 H O2 Saturation 100 96 97 07/28/21 18:49 Temperature Heart Rate 79 Respiratory 17 Rate Blood Pressure 126/89 H O2 Saturation 100 Oxygen O2 Source Room air - Labs Labs: Laboratory Tests 07/28/21 07/28/21 17:54 17:54 WBC 6.2 RBC 4.27 Hgb 13.2 Hct 38.1 MCV 89.2 MCH 30.9 MCHC 34.6 RDW 12.1 Plt Count 249 MPV 9.3 Neut # (Auto) 3.4 Lymph # (Auto) 2.2 [place] # (Auto) 0.5 Eos # (Auto) 0.1 Baso # (Auto) 0.0 Absolute Nucleated RBC 0.00 Nucleated RBC % 0.0 Sodium 134 L Potassium 3.4 L Chloride 100 L Carbon Dioxide 27 Anion Gap 7.0 BUN 12 Creatinine 0.7 Estimated GFR (MDRD) 100 Glucose 89 Calcium 8.5 - Rads (name of study) CT of the head and cervical spine are unremarkable Radiology: EMP read contemporaneously PD MEDICAL DECISION MAKING - ED course ED course: Cervical collar removed at 8:30 PM after completion of CT imaging. She is more awake now and no neck tenderness. 26-year-old woman with well-established pseudoseizures presents with same. Her psychiatrist just retired and will be seeing a new one but not for a few months. After the administration of Haldol which has worked well for her before she was back to normal without any more pseudoseizing. The only thing that is been effective in the past for her for this is very occasional small doses of Haldol. Both patient and mom would like this to be restarted. I discussed with him the long-term side effects and they understand, but are also counseled to how they should try to minimize the use of Haldol and use it only sparingly and when particularly needed. Not chronically. Departure - Departure Disposition: 01 Home, Self Care Clinical Impression: Pseudoseizures Condition: Good Record reviewed to determine appropriate education?: Yes Prescriptions: haloperidoL [Haldol] 0.5 mg PO BID PRN #20 tablet PRN Reason: Anxiety Comments: I sent your prescription electronically to [facility] in [place]. Follow-up with the psychiatrist as scheduled, sooner if you can manage it. Return for new or worsening symptoms. Do not drive until 6 months seizure-free or cleared by a neurologist. As discussed the haloperidol should be used sparingly and as little as possible because of potential long-term side effects.
[2021-07-28 17:59] LABS: BASOPHILS % (AUTO) 0.3 %; EOSINOPHILS # (AUTO) 0.1 10^3/uL (0.0-0.7); HCT - HEMATOCRIT 38.1 % (37.0-47.0); HGB - HEMOGLOBIN 13.2 g/dL (12.0-16.0); LYMPHOCYTES # (AUTO) 2.2 10^3/uL (1.5-3.5); LYMPHOCYTES % (AUTO) 35.7 %; MEAN CORPUSCULAR HEMOGLOBIN 30.9 pg (27.0-31.0); MEAN CORPUSCULAR HGB CONC 34.6 g/dL (32.0-36.0); MEAN CORPUSCULAR VOLUME 89.2 fL (81.0-99.0); MEAN PLATELET VOLUME 9.3 fL (7.9-10.8); MONOCYTES # (AUTO) 0.5 10^3/uL (0.0-1.0); MONOCYTES % (AUTO) 7.9 %; NEUTROPHILS # (AUTO) 3.4 10^3/uL (1.5-6.6); NEUTROPHILS % (AUTO) 54.8 %; PLT - PLATELET COUNT 249 10^3/uL (130-450); RED BLOOD COUNT 4.27 10^6/uL (4.20-5.40); RED CELL DISTRIBUTION WIDTH 12.1 % (12.0-15.0); WHITE BLOOD COUNT 6.2 x10^3/uL (4.8-10.8)
[2021-07-28 18:08] LABS: CALCIUM 8.5 mg/dL (8.5-10.3); CREATININE 0.7 mg/dL (0.4-1.0); POTASSIUM 3.4 mmol/L (3.5-5.0)
--- NOTE | 2021-07-28 18:21 | CT Report ---
PROCEDURE: HEAD WO INDICATIONS: head inj TECHNIQUE: Noncontrast 4.5 mm thick angled axial sections acquired from the foramen magnum to the vertex. For r adiation dose reduction, the following was used: automated exposure control, adjustment of mA and/or kV according to patient size. COMPARISON: CT head 06/16/2021 FINDINGS: Image quality: Excellent. CSF spaces: Basal cisterns are patent. No extra-axial fluid collections. Ventricles are normal in size and shape. Brain: No midline shift. No intracranial masses or hemorrhage. [place]-white matter interface is norm al. Skull and face: Calvarium and visualized facial bones are intact, without suspicious lesions. Sinuses: Visualized sinuses and mastoids are clear. IMPRESSION: 1. No acute intracranial process. Reviewed by: Zaida Aceves MD on 07/28/2021 6:20 PM PST Approved by: Zaida Aceves MD on 07/28/2021 6:20 PM PST Station ID: [id number]
--- NOTE | 2021-07-28 18:22 | CT Report ---
PROCEDURE: CERVICAL SPINE WO INDICATIONS: head inj TECHNIQUE: Noncontrast 3 mm thick sections acquired from the skull base to the T4 level. Sagittal and coronal r eformats were then constructed. For radiation dose reduction, the following was used: automated exp osure control, adjustment of mA and/or kV according to patient size. COMPARISON: CT cervical spine 06/16/2021 FINDINGS: Image quality: Excellent. Bones: No fractures or dislocations. Visualized superior ribs are intact. Soft tissues: Prevertebral soft tissues are normal in thickness. No paravertebral hematomas. No ap ical pneumothoraces. IMPRESSION: No visualized fracture or dislocation. Reviewed by: Zaida Aceves MD on 07/28/2021 6:21 PM PST Approved by: Zaida Aceves MD on 07/28/2021 6:21 PM PST Station ID: [id number]
[2021-07-28] MEDS ORDERED: KETOROLAC 15 MG/ML VIAL IVP STA (18:30)
--- NOTE | 2021-07-28 18:51 | XRAY Report ---
PROCEDURE: Hip w/Pelvis 2-3V LT INDICATIONS: hip inj TECHNIQUE: AP pelvis with lateral view(s) of the left hip(s). COMPARISON: None. FINDINGS: Bones: No fractures or dislocations. Pelvic ring appears intact. No suspicious bony lesions. Soft tissues: The visualized bowel gas pattern is normal. No suspicious soft tissue calcifications. IMPRESSION: No visualized acute fracture or dislocation. However, occult injury cannot be excluded. Recommend short interval imaging follow-up in 7-10 days as clinically indicated for additional evalua tion. Reviewed by: Zaida Aceves MD on 07/28/2021 6:50 PM PST Approved by: Zaida Aceves MD on 07/28/2021 6:50 PM PST Station ID: [id number]
[2021-07-28 19:13] VITALS: BP 132/90
== END 2021-07-28 19:21 | disposition home or self-care (01) ==
LOC: EDUNIT# → ED 16:56
DX: R56.9 Unspecified convulsions (principal); M25.552 Pain in left hip
CPT/HCPCS: 36415; 80048; 85025; 96374; 96375; 99285

== ENCOUNTER 2021-11-09 19:51 | Outpatient (CLI) | payer MEDICAID | END 2021-11-09 19:52 | disposition critical access hospital (66) | LOC: EMS 19:51 | DX: R56.9 Unspecified convulsions (principal) | CPT/HCPCS: A0425; A0427; A0999 ==

== ENCOUNTER 2021-11-09 20:06 | Emergency (ER) | payer MEDICAID ==
[2021-11-09] MEDS ORDERED: HALOPERIDOL 5 MG/ML VIAL IVP ONE (20:10)
--- NOTE | 2021-11-09 20:12 | ED Physician Documentation ---
PD HPI SEIZURE - Stated complaint Stated Complaint: SEIZURE - History obtained from History obtained from: EMS - Additional information Additional information: 26-year-old woman with a well-established history of pseudoseizures has been having seizure-like activity for the last 20 minutes or so. She is nonverbal on arrival but reportedly from paramedics she has not been compliant with her medications for the last day or so. She has received 2 doses of Versed prior to arrival, 2.5 mg IM, and 2.5 mg IV. 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: Hysterectomy, Oophrectomy - Present Medications Home Medications: Ambulatory Orders Medication Instructions Recorded Confirmed Baclofen [Lioresal] 10 mg PO BID 12/30/20 06/16/21 Diazepam [Valium] 10 mg PO QID 12/30/20 06/16/21 Sertraline HCl 200 mg PO DAILY 12/30/20 06/16/21 traMADol [Ultram] 100 mg PO BID 12/30/20 06/16/21 QUEtiapine [SEROquel] 1 tab PO DAILY 02/27/21 06/16/21 lamoTRIgine [LaMICtal] 200 mg PO DAILY 02/27/21 06/16/21 metFORMIN [Glucophage] 1 tab PO BID 02/27/21 06/16/21 Oxycodone HCl/Acetaminophen 1 - 2 each PO Q6H PRN #14 tablet 06/16/21 [Percocet 5-325 mg Tablet] QUEtiapine [SEROquel] 100 mg PO HS 06/16/21 06/16/21 haloperidoL [Haldol] 0.5 mg PO BID PRN #20 tablet 07/28/21 - Allergies Allergies/Adverse Reactions: Allergies Allergy/AdvReac Type Severity Reaction Status Date / Time adhesive Allergy Rash Verified 11/09/21 20:21 Cephalosporins Allergy Hives Verified 11/09/21 20:21 Iodinated Contrast Media Allergy Anaphylaxis Verified 11/09/21 20:21 latex Allergy Rash Verified 11/09/21 20:21 lidocaine Allergy Unknown Verified 11/09/21 20:21 metoclopramide [From Reglan] Allergy Anaphylaxis Verified 11/09/21 20:21 Penicillins Allergy Hives Verified 11/09/21 20:21 prochlorperazine Allergy Anaphylaxis Verified 11/09/21 20:21 [From Compazine] all antibiotic except Allergy Anaphylaxis Uncoded 11/09/21 20:21 levaquin - Social History Does the pt smoke?: No Smoking Status: Never smoker Does the pt drink ETOH?: No Does the pt have substance abuse?: No - Immunizations Immunizations are current?: Yes PD ED PE NORMAL - Vitals Vital signs reviewed: Yes - General General: Other (Eyes rolled up, she will briefly look at me when I talk to her but does not follow commands. She has fine twitching throughout. Her hand does deflect from her face when dropped on her face.) - HEENT HEENT: Other (Larger pupils but reactive) - Neck Neck: No bony TTP - Cardiac Cardiac: RRR, No murmur - Respiratory Respiratory: No respiratory distress, Clear bilaterally - Abdomen Abdomen: Soft, Non tender - Derm Derm: Normal color, Warm and dry - Extremities Extremities: No edema, No calf tenderness / cord - Neuro Eye Opening: Spontaneous Motor: Localizes to Pain Verbal: None GCS Score: 10 Results - Vitals Vitals: Vital Signs - 24 hr 11/09/21 11/09/21 20:21 20:26 Temperature 36.5 C 36.5 C Heart Rate 60 66 Respiratory 14 18 Rate Blood Pressure 158/72 H 158/72 H O2 Saturation 100 100 Oxygen O2 Source Room air PD MEDICAL DECISION MAKING - ED course ED course: 26-year-old woman with well elucidated pseudoseizures presents in status pseudo epilepticus. After the administration of Haldol she returned to normal and requested discharge. She denied SI or HI. She said she just had not taken her meds because she forgot them. Departure - Departure Disposition: 01 Home, Self Care Clinical Impression: Pseudoseizure Condition: Good Record reviewed to determine appropriate education?: Yes Comments: Restart your routine medications. Return if worsening. Follow-up with your psychiatrist.
--- OUTSIDE RECORDS SUMMARY | 2021-11-09 20:53 | EXTERNAL MEDICAL SUMMARY RPT | Continuity of Care Document ---
:1995 Author Organization [facility] Address [address] [place] [address] Phone Care Team Providers Name Role Phone Scott Unavailable Unavailable Allergies No information. Encounters No information. Medications date description facility 20211019 Diazepam 5 MG Oral Tablet [facility] megan 20211012 Diazepam 10 MG Oral Tablet [facility] ital 20211011 Metformin hydrochloride 500 MG Oral Tab [facility] 20211009 tramadol hydrochloride 50 MG Oral [facility] [id number] tramadol hydrochloride 50 MG Oral [facility] [id number] Baclofen 10 MG Oral Tablet [facility] ital [id number] Trazodone Hydrochloride 100 MG Oral Tab [facility] Problems Procedures date description facility 20211102 [facility] 20211019 [facility] Results No information. Vital Signs date measurement value source 20211019 weight_standard 77.11 lb 20211019 weight_metric 34.98 kg 20211019 temperature_standard 97.9 F 20211019 temperature_metric 36.61 C 20211019 respiration_rate 18 /min 20211019 height_standard 62 in 20211019 height_metric 157.48 cm 20211019 heart_rate 74 /min 20211019 BP_systolic 117 mm[Hg] 20211019 BP_diastolic 59 mm[Hg] 20211019 BMI 31.1 kg/m2 20211102 weight_standard 86.3 lb 20211102 weight_metric 39.14 kg 20211102 temperature_standard 96.8 F 20211102 temperature_metric 36 C 20211102 respiration_rate 16 /min 20211102 height_standard 62 in 20211102 height_metric 157.48 cm 20211102 heart_rate 91 /min 20211102 BP_systolic 116 mm[Hg] 20211102 BP_diastolic 86 mm[Hg] 20211102 BMI 34.7 kg/m2
[2021-11-09 21:03] VITALS: BP 106/60
== END 2021-11-09 21:00 | disposition home or self-care (01) ==
LOC: EDUNIT# → ED 20:06
DX: R56.9 Unspecified convulsions (principal)
CPT/HCPCS: 96374; 99281

== ENCOUNTER 2022-02-26 18:25 | Emergency (ER) | payer MEDICAID ==
[2022-02-26] MEDS ORDERED: HALOPERIDOL 5 MG/ML VIAL IVP STA (18:29)
--- NOTE | 2022-02-26 18:39 | ED Physician Documentation ---
History of Present Illness - Stated complaint Stated Complaint: SEIZURE - History obtained from History obtained from: EMS - Additonal information Additional information: 27-year-old woman with well-established pseudoseizures. Please see my prior notes. Reportedly missed her medications today and is having seizure-like activity. She is unresponsive on arrival having had 5 mg of Versed prior to arrival for EMS. 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: Hysterectomy, Oophrectomy - Present Medications Home Medications: Ambulatory Orders Medication Instructions Recorded Confirmed Diazepam [Valium] 10 mg PO QID 12/30/20 02/26/22 Sertraline HCl 200 mg PO DAILY 12/30/20 02/26/22 traMADol [Ultram] 100 mg PO BID 12/30/20 02/26/22 QUEtiapine [SEROquel] 1 tab PO DAILY 02/27/21 02/26/22 lamoTRIgine [LaMICtal] 200 mg PO DAILY 02/27/21 02/26/22 metFORMIN [Glucophage] 1 tab PO BID 02/27/21 02/26/22 haloperidoL [Haldol] 0.5 mg PO BID PRN #20 tablet 07/28/21 02/26/22 Diazepam [Valium] 10 mg PO QID #60 tablet 02/26/22 haloperidoL [Haldol] 0.5 mg PO BID PRN #20 tablet 02/26/22 - Allergies Allergies/Adverse Reactions: Allergies Allergy/AdvReac Type Severity Reaction Status Date / Time adhesive Allergy Rash Verified 02/26/22 18:44 Cephalosporins Allergy Hives Verified 02/26/22 18:44 Iodinated Contrast Media Allergy Anaphylaxis Verified 02/26/22 18:44 latex Allergy Rash Verified 02/26/22 18:44 lidocaine Allergy Unknown Verified 02/26/22 18:44 metoclopramide [From Reglan] Allergy Anaphylaxis Verified 02/26/22 18:44 Penicillins Allergy Hives Verified 02/26/22 18:44 prochlorperazine Allergy Anaphylaxis Verified 02/26/22 18:44 [From Compazine] all antibiotic except Allergy Anaphylaxis Uncoded 02/26/22 18:44 levaquin - Social History Does the pt smoke?: No Smoking Status: Never smoker Does the pt drink ETOH?: No Does the pt have substance abuse?: No - Immunizations Immunizations are current?: Yes PD ED PE NORMAL - Vitals Vital signs reviewed: Yes - General General: Other (She is laying in her right lateral decubitus position with fluttering eye movements and coarse tremors of the arms) - HEENT HEENT: PERRL, EOMI - Neck Neck: Supple, no meningeal sign, No bony TTP - Cardiac Cardiac: RRR, No murmur - Respiratory Respiratory: No respiratory distress, Clear bilaterally - Abdomen Abdomen: Non tender - Neuro Eye Opening: To Pain Motor: Withdraws to Pain Verbal: None GCS Score: 7 Results - Vitals Vitals: Vital Signs - 24 hr 02/26/22 18:30 Temperature 37.1 C Heart Rate 79 Respiratory 20 Rate Blood Pressure 109/96 H O2 Saturation 100 Oxygen O2 Source Room air PD MEDICAL DECISION MAKING - ED course ED course: 27-year-old woman with well-established pseudoseizures presents with same. Triggers include her son coming home, recent loss of her job, and her primary care physician retired and the new primary care physician reportedly is not prescribing her diazepam which is concerning since she was on a fairly high dose. She is gotten some breakthrough prescriptions from urgent cares and was not but is again about to run out corroborated by information on the [facility] E/PNEUMATIC TUBE REPAIRER form. She presents still pseudo seizing after the administration of Versed, 5 mg given prehospital and on arrival here since I knew her history well she was administered 5 mg of IV Haldol with cessation of all seizure-like activity. This has been very effective in the past for her. In the past we have given her prescription for very low-dose of Haldol as needed and per the mom she is about 1 a week. At that dose I think long-term side effects are hopefully unlikely and the patient and mother are willing to undertake these potential side effects given had a help control the seizures. Departure - Departure Disposition: 01 Home, Self Care Clinical Impression: Pseudoseizures Condition: Good Record reviewed to determine appropriate education?: Yes Instructions: ED Seizure Recurrent Prescriptions: haloperidoL [Haldol] 0.5 mg PO BID PRN #20 tablet PRN Reason: pseudoseizure Diazepam [Valium] 10 mg PO QID #60 tablet Comments: I sent your prescriptions electronically to [facility] in [place]. Follow-up with your prescribing physician and neurologist as scheduled. Continue to abstain from alcohol and driving. Return for new or worsening symptoms.
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
[2022-02-26] MEDS ORDERED: diazePAM 5 MG TABLET PO STA (20:35)
[2022-02-26 20:42] VITALS: BP 99/68
== END 2022-02-26 20:52 | disposition home or self-care (01) ==
LOC: EDUNIT# → ED 18:25
DX: R56.9 Unspecified convulsions (principal)
CPT/HCPCS: 96374; 99281; 99283; A9270

== ENCOUNTER 2022-04-04 18:48 | Outpatient (CLI) | payer MEDICAID | END 2022-04-04 18:49 | disposition critical access hospital (66) | LOC: EMS 18:48 | DX: R56.9 Unspecified convulsions (principal); R07.81 Pleurodynia; M25.511 Pain in right shoulder; W18.39XA Other fall on same level, initial encounter; Y92.009 Unspecified place in unspecified non-institutional (private) residence as the place of occurrence of the external cause | CPT/HCPCS: A0425; A0427; A0999 ==

== ENCOUNTER 2022-04-04 19:08 | Emergency (ER) | payer MEDICAID ==
--- OUTSIDE RECORDS SUMMARY | 2022-04-04 19:20 | EXTERNAL MEDICAL SUMMARY RPT | Continuity of Care Document ---
:1995 Author Organization [place] Address [address] [place] [address] Phone Allergies and Intolerances date description facility type (no date) COMPAZINE All (unknown) (no date) COMPAZINE [facility] [place] (no date) REGLAN All (unknown) (no date) REGLAN [facility] [place] (no date) [facility] (unknown) (no date) CEPHALEXIN [facility] [place] (no date) LIDOCAINE All (unknown) (no date) LIDOCAINE [facility] [place] (no date) PENICILLIN V POTASSIUM All (unknow n) (no date) PENICILLIN V POTASSIUM [facility] [place] (no date) Iodinated Contrast [facility] (unk nown) (no date) Penicillins [facility] (unknown) (no date) acetaminophen [facility] (unknown) (no date) adhesive [facility] (unknown) (no date) amoxicillin [facility] (unknown) (no date) cephalexin [facility] (unknown) (no date) ciprofloxacin [facility] (unknown) (no date) clindamycin [facility] (unknown) (no date) doxycycline [facility] (unknown) (no date) hydrocodone [facility] (unknown) (no date) iodine [facility] (unknown) (no date) latex [facility] (unknown) (no date) lidocaine [facility] (unknown) (no date) metoclopramide [facility] (unknown) (no date) prochlorperazine [facility] (unknown) (no date) shellfish derived [facility] (unknown) (no date) sulfamethoxazole [facility] (unknown) (no date) trimethoprim [facility] (unknown) Encounters No information. Functional Status No information. Immunizations No information. Medications date description facility + tramadol [facility] [place] [id number]+0000 diazepam [facility] [place] [id number]+0000 diazepam [facility] [place] [id number]+0000 oxycodone All [id number]+0000 oxycodone [facility] [place] [id number]+0000 oxycodone All [id number]+0000 oxycodone [facility] [place] [id number]+0000 epinephrine [facility] [place] [id number]+0000 diazepam [facility] [place] [id number]+0000 diazepam [facility] [place] [id number]+0000 lamotrigine 200 MG Oral Tablet [facility] 98889328231700+0000 quetiapine [facility] [place] [id number]+0000 [facility] [id number]+0000 quetiapine [facility] [place] [id number]+0000 Sertraline 100 MG Oral Tablet [facility] [id number]+0000 sertraline [facility] [place] 56754280913461+0000 epinephrine [facility] [place] [id number]+0000 trazodone [facility] [id number]+0000 sertraline [facility] [place] [id number]+0000 quetiapine [facility] [place] [id number]+0000 quetiapine [facility] [place] [id number]+0000 tramadol hydrochloride [facility] 75616478430763+0000 tramadol [facility] [place] [id number]+0000 trazodone [facility] [place] Problems No information. Procedures date description facility [id number]+0000 Visit Code Hold All [id number]+0000 Visit Code Hold [facility] [place] [id number]+0000 Visit Code Hold All [id number]+0000 Visit Code Hold [facility] [place] [id number]+0000 Visit Code Hold [facility] [place] [id number]+0000 [facility] [id number]+0000 [facility] [id number]+0000 XR SHOULDER 2-3 VIEW All [id number]+0000 XR SHOULDER 2-3 VIEW [facility] & [facility] [place] [id number]+0000 Ketorolac Tromethamine 30 mg/ml All Soln 23203945773602+0000 Ketorolac Tromethamine 30 mg/ml Walk- In [facility] & [facility] [place] [id number]+0000 Med Administration ([place]) All [id number]+0000 Med Administration ([place]) Walk -In [facility] [place] Results/Labs test date author facility value unit interpret ation Result panel 1 (unknown) (no date) (unknown) (unknown) > 60 [...] (unknown) 8.9 mg/dL (unkn own) Result panel 2 (unknown) (no date) (unknown) (unknown) Negative (units (unkn own) unknown) (unknown) (no date) (unknown) (unknown) Normal (units (unkn own) unknown) (unknown) (no date) (unknown) (unknown) Positive (units (unkn own) unknown) Result panel 3 (unknown) (no (unknown) (unknown) (no value) (units (unk nown) date) unknown) (unknown) (no (unknown) (unknown) (no value) (units (unk nown) date) unknown) (unknown) (no (unknown) (unknown) (no value) (units (unk nown) date) unknown) (unknown) (no (unknown) (unknown) 02/27/22 (units (unkno wn) date) unknown) (unknown) (no (unknown) (unknown) 11:32 (units (unkno wn) date) unknown) (unknown) (no (unknown) (unknown) ANAPHYLAXIS (units (un known) date) unknown) (unknown) (no (unknown) (unknown) [place], [place] (units ( unknown) date) [id number] unknown) (unknown) (no (unknown) (unknown) Breast cancer [...] nown) date) unknown) (unknown) (no (unknown) (unknown) 02/27/22 (units (unkno wn) date) unknown) (unknown) (no (unknown) (unknown) : [id number] (units (u nknown) date) unknown) (unknown) (no (unknown) (unknown) Age/Sex: 27 / F (units (unknown) date) Date of Service: unknown) (unknown) (no (unknown) (unknown) Allergies (units (unkn own) date) unknown) (unknown) (no (unknown) (unknown) Attending Dr: [place]an (units (unknown) date) Clementina Castorena MD unknown) (unknown) (no (unknown) (unknown) BMI 34.6 (units (un known) date) unknown) (unknown) (no (unknown) (unknown) BP 106/80 (units (u nknown) date) unknown) (unknown) (no (unknown) (unknown) 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 unknown) (unknown) (no (unknown) (unknown) Documented By: (units (unknown) date) Estevan Castorena MD unknown) 02/27/22 1132 (unknown) (no (unknown) (unknown) Endometriosis (units ( unknown) date) unknown) (unknown) (no (unknown) (unknown) Family History (units (unknown) date) (Reviewed 10/19/21 unknown) @ 13:20 by Luann Lamb DO) (unknown) (no (unknown) (unknown) Grandmother (units (un known) date) Ovarian unknown) cancer (unknown) (no (unknown) (unknown) H/O unilateral (units (unknown) date) oophorectomy unknown) (-12/2020) (unknown) (no (unknown) (unknown) H/O: hysterectomy (units (unknown) date) unknown) (unknown) (no (unknown) (unknown) Height 5 ft 2 (units (unknown) date) in unknown) (unknown) (no (unknown) (unknown) Hematuria (units (unkn own) date) unknown) (unknown) (no (unknown) (unknown) History of ureter [...] wn) date) unknown) (unknown) (no (unknown) (unknown) Major depressive (units (unknown) date) disorder unknown) (unknown) (no (unknown) (unknown) Medical History (units (unknown) date) (Updated 01/18/22 @ unknown) 15:46 by Estevan Castorena MD) (unknown) (no (unknown) (unknown) Morbid obesity (units (unknown) date) unknown) (unknown) (no (unknown) (unknown) Mother BRCA (units ( unknown) date) positive unknown) (unknown) (no (unknown) (unknown) Nephrolithiasis (units (unknown) date) (-2017) unknown) (unknown) (no (unknown) (unknown) Other Menstrual (units (unknown) date) Period: Surgical unknown) Menopause (unknown) (no (unknown) (unknown) Ovarian cyst (units [...] (unknown) (unknown) Patient: (units (unkno wn) date) Eileen Jorgensen unknown) M MR# (unknown) (no (unknown) (unknown) Pelvic congestion (units (unknown) date) (2013) unknown) (unknown) (no (unknown) (unknown) Penicillins (units (un known) date) [PENICILLINS] unknown) Allergy (Mild, Verified 10/19/21 12:00) (unknown) (no (unknown) (unknown) Position (units (unkno wn) date) Sitting unknown) (unknown) (no (unknown) (unknown) 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 (unknown) (no (unknown) (unknown) Pulse 86 (units (un known) date) unknown) (unknown) (no (unknown) (unknown) Pulse Oximetry (%) (units (unknown) date) 98 unknown) (unknown) (no (unknown) (unknown) Pulse Source (units (u nknown) date) Monitor unknown) (unknown) (no (unknown) (unknown) Reason For Visit (units (unknown) date) unknown) (unknown) (no (unknown) (unknown) Respiration 16 (units (unknown) date) unknown) (unknown) (no (unknown) (unknown) Signed By: (units [...] Scott MD) (unknown) (no (unknown) (unknown) Temp 97.1 F L (units (unknown) date) unknown) (unknown) (no (unknown) (unknown) Temp Source (units (un known) date) Temporal Artery unknown) Scan (unknown) (no (unknown) (unknown) This note may have (units (unknown) date) been all or unknown) partially generated using voice recognition (unknown) (no (unknown) (unknown) Tobacco + (units (unkn own) date) Substance Use unknown) (unknown) (no (unknown) (unknown) Tobacco Status (units (unknown) date) unknown) (unknown) (no (unknown) (unknown) Verified 10/19/21 (units (unknown) date) 12:00) unknown) (unknown) (no (unknown) (unknown) Visit Reasons: (units (unknown) date) [facility] unknown) Follow up07 (unknown) (no (unknown) (unknown) Vitals (units (unkno wn) date) unknown) (unknown) (no (unknown) (unknown) Weight 189 lb 6 (units (unknown) date) oz unknown) (unknown) (no (unknown) (unknown) acetaminophen (units ( unknown) date) [From Vicodin] unknown) Adverse Reaction (Verified 10/19/21 13:35) (unknown) (no (unknown) (unknown) adhesive (units (unkno wn) date) [ADHESIVE] Allergy unknown) (Mild, Verified 10/19/21 12:00) (unknown) (no (unknown) (unknown) amoxicillin (units (un known) date) [AMOXICILLIN] unknown) Allergy (Mild, Verified 10/19/21 12:00) (unknown) (no (unknown) (unknown) cephalexin (units (unk nown) date) [CEPHALEXIN] unknown) Allergy (Unknown, Verified 10/19/21 12:00) (unknown) (no (unknown) (unknown) ciprofloxacin (units ( unknown) date) [CIPROFLOXACIN] unknown) Allergy (Unknown, Verified 10/19/21 12:00) (unknown) (no (unknown) (unknown) clindamycin (units (un known) date) [CLINDAMYCIN] unknown) Allergy (Unknown, Verified 10/19/21 12:00) (unknown) (no (unknown) (unknown) doxycycline (units (un known) date) [DOXYCYCLINE] unknown) Allergy (Mild, Verified 10/19/21 12:00) (unknown) (no (unknown) (unknown) have occurred. If [...] independently: Yes unknown) (unknown) (no (unknown) (unknown) marital status: (units (unknown) date) unknown) (unknown) (no (unknown) (unknown) may occur. (units (unk nown) date) Occasional unknown) wrong-word or 'sound-alike' substitutions may have (unknown) (no (unknown) (unknown) metoclopramide (units (unknown) date) [METOCLOPRAMIDE] unknown) Allergy (Mild, Verified 10/19/21 12:00) (unknown) (no (unknown) (unknown) occupational (units (u nknown) date) status: employed unknown) (unknown) (no (unknown) (unknown) occurred due to (units (unknown) date) the inherent unknown) limitations of voice recognition software. Please (unknown) (no (unknown) (unknown) prochlorperazine (units (unknown) [...] effort is unknown) made to edit content, book illustrator errors (unknown) (no (unknown) (unknown) sulfamethoxazole (units (unknown) date) [From BACTRIM] unknown) Allergy (Mild, Verified 10/19/21 12:00) (unknown) (no (unknown) (unknown) trimethoprim [From (units (unknown) date) BACTRIM] Allergy unknown) (Mild, Verified 10/19/21 12:00) Result panel 4 (unknown) (no (unknown) (unknown) (no value) (units (unk nown) date) unknown) (unknown) (no (unknown) (unknown) Medications: (units (u nknown) date) unknown) (unknown) (no (unknown) (unknown) (no value) (units (unk nown) date) unknown) (unknown) (no (unknown) (unknown) (no value) (units (unk nown) date) unknown) (unknown) (no (unknown) (unknown) 02/27/22 (units (unkno wn) date) unknown) (unknown) (no (unknown) (unknown) 11:32 (units (unkno wn) date) unknown) (unknown) (no (unknown) (unknown) ANAPHYLAXIS (units (un known) date) unknown) (unknown) (no (unknown) (unknown) ANALY Li (units ( unknown) date) [id number] unknown) (unknown) (no (unknown) (unknown) Breast cancer (units ( unknown) date) unknown) (unknown) (no (unknown) (unknown) CAD (coronary (units ( unknown) date) artery disease) unknown) (unknown) (no (unknown) (unknown) Discontinued (units (u nknown) date) Reason: Patient no unknown) longer taking TAKE 1/2 TABLET BY MOUTH (unknown) (no (unknown) (unknown) Discontinued (units (u nknown) date) Reason: Patient no unknown) longer taking 2 puffs inhalation QID PRN (unknown) (no (unknown) (unknown) Discontinued (units (u nknown) date) Reason: Patient no unknown) longer taking 25 mg PO TID PRN 270 tabs 0RF (unknown) (no (unknown) (unknown) Discontinued (units (u nknown) date) Reason: Patient no unknown) longer taking Pt unable to walk more then (unknown) (no (unknown) (unknown) Draft (units (unkno [...] nown) date) unknown) (unknown) (no (unknown) (unknown) Confirmed (units (unkn own) date) 02/27/22] unknown) (unknown) (no (unknown) (unknown) Of note, patient (units (unknown) date) has received unknown) narcotic hit 1 of them many clinic and ED visits (unknown) (no (unknown) (unknown) .COMPLEX #2 ea (units (unknown) date) 02/27/22 [Rx unknown) Confirmed 02/27/22] (unknown) (no (unknown) (unknown) 02/27/22 (units (unkno wn) date) unknown) (unknown) (no (unknown) (unknown) 02/27/22] (units (unkn own) date) unknown) (unknown) (no (unknown) (unknown) 1 hour EEG and if (units (unknown) date) any epileptiform unknown) electrical activity is noted, I might (unknown) (no (unknown) (unknown) 200ft without (units ( unknown) date) stopping to rest. unknown) 1 ea 0RF (unknown) (no (unknown) (unknown) 27-year-old female (units (unknown) date) here with her unknown) mother for medication review. History on chart (unknown) (no (unknown) (unknown) 8.5 grams 0RF (units ( unknown) date) shortness of breath unknown) or wheezing (unknown) (no (unknown) (unknown) : [id number] (units (u nknown) date) unknown) (unknown) (no (unknown) (unknown) After reviewing (units (unknown) date) records from unknown) [place] that noted her video EEG revealed no (unknown) (no (unknown) (unknown) Age/Sex: 27 / F (units (unknown) date) Date of Service: unknown) (unknown) (no (unknown) (unknown) Allergies (units (unkn own) date) unknown) (unknown) (no (unknown) (unknown) Assessment + Plan (units (unknown) date) unknown) (unknown) (no (unknown) (unknown) Attending Dr: [place] (units (unknown) date) Clementina Castorena MD unknown) (unknown) (no (unknown) (unknown) February or perhaps (units (unknown) date) another provider unknown) that would be gracious enough to a visit with (unknown) (no (unknown) (unknown) BMI 34.6 (units (un known) date) unknown) (unknown) (no (unknown) (unknown) BP 106/80 (units (u nknown) date) unknown) (unknown) (no (unknown) (unknown) 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 unknown) (unknown) (no (unknown) (unknown) Details: (units (unkno wn) date) unknown) (unknown) (no (unknown) (unknown) Discontinued (units (u nknown) date) unknown) (unknown) (no (unknown) (unknown) Documented By: (units (unknown) date) Estevan Castorena MD unknown) 02/27/22 1132 (unknown) (no (unknown) (unknown) Endometriosis (units ( unknown) date) unknown) (unknown) (no (unknown) (unknown) Family History (units (unknown) date) (Reviewed 10/19/21 unknown) @ 13:20 by Luann Lamb DO) (unknown) (no (unknown) (unknown) Grandmother (units (un known) date) Ovarian unknown) cancer (unknown) (no (unknown) (unknown) H/O unilateral (units (unknown) date) oophorectomy unknown) () (unknown) (no (unknown) (unknown) H/O: hysterectomy (units (unknown) date) unknown) (unknown) (no (unknown) (unknown) HPI (units (unkno wn) date) unknown) (unknown) (no (unknown) (unknown) Health reveals (units (unknown) date) that she, even unknown) though discharged from [facility], had a (unknown) (no (unknown) (unknown) Height 5 ft 2 (units (unknown) date) in unknown) (unknown) (no (unknown) (unknown) Hematuria (units (unkn own) date) unknown) (unknown) (no (unknown) (unknown) History of ureter (units (unknown) date) stent unknown) (unknown) (no (unknown) (unknown) I declared that, (units (unknown) date) in the interim unknown) before Neurology visit, I could perhaps order a (unknown) (no (unknown) (unknown) I told mom that I (units (unknown) date) was reluctant to unknown) have her on diazepam if we can not document (unknown) (no (unknown) (unknown) I would be happy (units (unknown) date) to have a member of unknown) clinic administration come to talk to her (unknown) (no (unknown) (unknown) Intake (units (unkno wn) date) unknown) (unknown) (no (unknown) (unknown) Iodinated Contrast (units (unknown) date) Media [IODINATED unknown) CONTRAST MEDIA - IV DYE] Allergy (Unknown, (unknown) (no (unknown) (unknown) Lamictal by (units (un known) date) records for seizure unknown) control and mood, not to refill her diazepam (unknown) (no (unknown) (unknown) Last Menstural (units (unknown) date) Cycle + Details unknown) (unknown) (no (unknown) (unknown) Loc: [facility] (units (unkno wn) date) unknown) (unknown) (no (unknown) (unknown) Major depressive (units (unknown) date) disorder unknown) (unknown) (no (unknown) (unknown) Medical History (units (unknown) date) (Updated 01/18/22 @ unknown) 15:46 by Estevan Castorena MD) (unknown) (no (unknown) (unknown) Medications (units (un known) date) unknown) (unknown) (no (unknown) (unknown) Mom even declared (units (unknown) date) that Dr. Hill unknown) (SP?) who works here at [facility] and (unknown) (no (unknown) (unknown) Morbid obesity (units (unknown) date) unknown) (unknown) (no (unknown) (unknown) Mother BRCA (units ( unknown) date) positive unknown) (unknown) (no (unknown) (unknown) Nephrolithiasis (units (unknown) date) (-2017) unknown) (unknown) (no (unknown) (unknown) Of note, [facility] (units (u nknown) date[facility] centered on patient (unknown) (no (unknown) (unknown) Other Menstrual (units (unknown) date) Period: Surgical unknown) Menopause (unknown) (no (unknown) (unknown) Ovarian cyst (units [...] (unknown) (unknown) Patient: (units (unkno wn) date) Eileen Jorgensen unknown) M MR# (unknown) (no (unknown) (unknown) Pelvic congestion (units (unknown) date) (2013) unknown) (unknown) (no (unknown) (unknown) Penicillins (units (un known) date) [PENICILLINS] unknown) Allergy (Mild, Verified 10/19/21 12:00) (unknown) (no (unknown) (unknown) Position (units (unkno wn) date) Sitting unknown) (unknown) (no (unknown) (unknown) 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 (unknown) (no (unknown) (unknown) Pulse 86 (units (un known) date) unknown) (unknown) (no (unknown) (unknown) Pulse Oximetry (%) (units (unknown) date) 98 unknown) (unknown) (no (unknown) (unknown) Pulse Source (units (u nknown) date) Monitor unknown) (unknown) (no (unknown) (unknown) Reason For Visit (units (unknown) date) unknown) (unknown) (no (unknown) (unknown) Refilled (units (unkno wn) date) unknown) (unknown) (no (unknown) (unknown) Respiration 16 (units (unknown) date) unknown) (unknown) (no (unknown) (unknown) Reviewed notes (units (unknown) date) again prior to unknown) entering exam room. Introductions were made and (unknown) (no (unknown) (unknown) Signed By: (units (unk nown) date) unknown) (unknown) (no (unknown) (unknown) Smoking Status: (units (unknown) date) Never smoker unknown) (unknown) (no (unknown) (unknown) Social History (units (unknown) date) unknown) (unknown) (no (unknown) (unknown) Status post (units (un known) date) appendectomy (2004) unknown) (unknown) (no (unknown) (unknown) Status [...] Amaris Scott MD) (unknown) (no (unknown) (unknown) TWICE DAILY 30 (units (unknown) date) tabs 0RF unknown) (unknown) (no (unknown) (unknown) Temp 97.1 F L (units (unknown) date) unknown) (unknown) (no (unknown) (unknown) Temp Source (units (un known) date) Temporal Artery unknown) Scan (unknown) (no (unknown) (unknown) This note may have (units (unknown) date) been all or unknown) partially generated using voice recognition (unknown) (no (unknown) (unknown) This was based on (units (unknown) date) the fact that I had unknown) noted such a diagnosis and diazepam for it (unknown) (no (unknown) (unknown) Tobacco + (units (unkn own) date) Substance Use unknown) (unknown) (no (unknown) (unknown) Tobacco Status (units (unknown) date) unknown) (unknown) (no (unknown) (unknown) UNTIL RESPONSE 2 (units (unknown) date) ea 0RF unknown) (unknown) (no (unknown) (unknown) Verified 10/19/21 (units (unknown) date) 12:00) unknown) (unknown) (no (unknown) (unknown) Visit Reasons: (units (unknown) date) [facility] unknown) Follow up07 (unknown) (no (unknown) (unknown) Vitals (units (unkno wn) date) unknown) (unknown) (no (unknown) (unknown) Weight 189 lb 6 (units (unknown) date) oz unknown) (unknown) (no (unknown) (unknown) [Disabled parking (units (unknown) date) pass] unknown) (unknown) (no (unknown) (unknown) [Rx Confirmed (units ( unknown) date) 02/27/22] unknown) (unknown) (no (unknown) (unknown) acetaminophen (units ( unknown) date) [From Vicodin] unknown) Adverse Reaction (Verified 10/19/21 13:35) (unknown) (no (unknown) (unknown) adhesive (units (unkno wn) date) [ADHESIVE] Allergy unknown) (Mild, Verified 10/19/21 12:00) (unknown) (no (unknown) (unknown) after declaring (units (unknown) date) perhaps she should unknown) see another physician here in the clinic if (unknown) (no (unknown) (unknown) albuterol sulfate (units (unknown) date) 90 mcg/actuation unknown) (ProAir HFA) (unknown) (no (unknown) (unknown) amoxicillin (units (un known) date) [AMOXICILLIN] unknown) Allergy (Mild, Verified 10/19/21 12:00) (unknown) (no (unknown) (unknown) and family declare (units (unknown) date) she has a Neurology unknown) visit later this month. (unknown) (no (unknown) (unknown) and family noting (units (unknown) date) seizure activity unknown) with notes from those visits speaking for (unknown) (no (unknown) (unknown) asked management (units (unknown) date) to come in to talk unknown) to her as a reminder, but she continued out (unknown) (no (unknown) (unknown) at [facility] (units (unknown) date) and an emergdency unknown) room visit at [facility] with records to (unknown) (no (unknown) (unknown) baclofen (units (unkno wn) date) unknown) (unknown) (no (unknown) (unknown) be scanned into (units (unknown) date) system if not unknown) already present. Saw patient 1st and only time (unknown) (no (unknown) (unknown) breakthrough (units (un known) date) seizures in unknown) patients that don't respond to an antiepileptic. When I (unknown) (no (unknown) (unknown) calculation, she (units (unknown) date) would have been off unknown) diazepam for a couple of weeks after the (unknown) (no (unknown) (unknown) cephalexin (units (unk nown) date) [CEPHALEXIN] unknown) Allergy (Unknown, Verified 10/19/21 12:00) (unknown) (no (unknown) (unknown) ciprofloxacin (units ( unknown) date) [CIPROFLOXACIN] unknown) Allergy (Unknown, Verified 10/19/21 12:00) (unknown) (no (unknown) (unknown) clindamycin (units (un known) date) [CLINDAMYCIN] unknown) Allergy (Unknown, Verified 10/19/21 12:00) (unknown) (no (unknown) (unknown) clinic management (units (unknown) date) and termite control representative unknown) came up to discuss with Meaghan and me the (unknown) (no (unknown) (unknown) commented on the (units (unknown) date) prospect of an unknown) antiepileptic, mom relayed that 'none of them (unknown) (no (unknown) (unknown) consider diazepam (units (unknown) date) reintroduction. unknown) Usually that med is only given for (unknown) (no (unknown) (unknown) diazepam 10 mg (units (unknown) date) tablet 10 mg PO QID unknown) #120 tabs 10/12/21 [Rx Confirmed 02/27/22] (unknown) (no (unknown) (unknown) diazepam 5 mg (units (u nknown) date) tablet (Valium) 5 unknown) mg PO TID PRN muscle spasm #10 tabs 10/19/21 [Rx (unknown) (no (unknown) (unknown) diazepam. I (units (un known) date) remarked on the unknown) fact that she had a > 1 hour EEG per [place] that (unknown) (no (unknown) (unknown) discharged from (units (unknown) date) Behavioral Health unknown) here and that I would need to take over (unknown) (no (unknown) (unknown) doxycycline (units (un known) date) [DOXYCYCLINE] unknown) Allergy (Mild, Verified 10/19/21 12:00) (unknown) (no (unknown) (unknown) epinephrine (units (un known) date) INJECT unknown) INTRAMUSCULARLY EVERY 20 MINUTES NEEDED FOR ANAPHYLAXIS (unknown) (no (unknown) (unknown) epinephrine 0.3 (units (unknown) date) mg/0.3 mL unknown) injection, auto-injector See Rx Instructions .Route (unknown) (no (unknown) (unknown) evident (units (unkno wn) date) epileptiform unknown) activity during events which were ultimately labeled (unknown) (no (unknown) (unknown) given there has (units (unknown) date) been no clear unknown) seizure electrical activity for which she should (unknown) (no (unknown) (unknown) had not refilled (units (unknown) date) diazepam and forced unknown) her to go cold turkey. I then declare that (unknown) (no (unknown) (unknown) have occurred. If (units (unknown) date) there are any unknown) questions, please contact the Medical Records (unknown) (no (unknown) (unknown) household members: (units (unknown) date) spouse and children unknown) (unknown) (no (unknown) (unknown) hydrocodone (units (un known) date) Allergy (Mild, unknown) Verified 10/19/21 12:00) (unknown) (no (unknown) (unknown) in old records. (units (unknown) date) Patient's mother unknown) then stated they 'will take it for anxiety (unknown) (no (unknown) (unknown) in the last few (units (unknown) date) weeks. States she unknown) takes for seizures and not for anxiety (unknown) (no (unknown) (unknown) interjected (units (un known) date) frequently and unknown) appeared frustrated that I did not understand that (unknown) (no (unknown) (unknown) iodine [IODINE] (units (unknown) date) Allergy (Mild, unknown) Verified 10/19/21 12:00) (unknown) (no (unknown) (unknown) lamotrigine 200 mg (units (unknown) date) tablet 200 mg PO unknown) DAILY #30 tabs 01/18/22 [Rx Confirmed (unknown) (no (unknown) (unknown) latex [LATEX] (units ( unknown) date) Allergy (Unknown, unknown) Verified 10/19/21 12:00) (unknown) (no (unknown) (unknown) lidocaine Adverse (units (unknown) date) Reaction (Verified unknown) 10/19/21 12:00) (unknown) (no (unknown) (unknown) lives (units (unkno wn) date) independently: Yes unknown) (unknown) (no (unknown) (unknown) marital status: (units (unknown) date) unknown) (unknown) (no (unknown) (unknown) may occur. (units (unk nown) date) Occasional unknown) wrong-word or 'sound-alike' substitutions may have (unknown) (no (unknown) (unknown) metformin 500 mg (units (unknown) date) tablet 500 mg PO unknown) BID #60 tabs 02/21/22 [Rx Confirmed 02/27/22] (unknown) (no (unknown) (unknown) metoclopramide (units (unknown) date) [METOCLOPRAMIDE] unknown) Allergy (Mild, Verified 10/19/21 12:00) (unknown) (no (unknown) (unknown) monthly refill on (units (unknown) date) her diazepam from unknown) Dr. Webb which she picked up after our (unknown) (no (unknown) (unknown) most of my (units (unk nown) date) attention was unknown) toward patient with questions directed to her. Mother (unknown) (no (unknown) (unknown) mother that I (units ( unknown) date) would be happy to unknown) prescribe a refill on her diazepam for anxiety. (unknown) (no (unknown) (unknown) nausea and (units (unk nown) date) vomiting unknown) (unknown) (no (unknown) (unknown) need that (units (unkn own) date) medication at unknown) present/until seen by Neurology in follow-up. Patient (unknown) (no (unknown) (unknown) occupational (units (u nknown) date) status: employed unknown) (unknown) (no (unknown) (unknown) occurred due to (units (unknown) date) the inherent unknown) limitations of voice recognition software. Please (unknown) (no (unknown) (unknown) of anxiety, panic (units (unknown) date) attacks, PTSD, unknown) depression. Reviewed two walk-in clinic visits (unknown) (no (unknown) (unknown) of the clinic. As (units (unknown) date) result, I did not unknown) get an opportunity to formally examined (unknown) (no (unknown) (unknown) off diazepam. (units ( unknown) date) unknown) (unknown) (no (unknown) (unknown) other potential (units (unknown) date) evaluation before unknown) she is seen by her neurologist at the end of (unknown) (no (unknown) (unknown) patient and mother (units (unknown) date) in the next couple unknown) of weeks. I am not clear at this present (unknown) (no (unknown) (unknown) patient had a TBI (units (unknown) date) and that she had a unknown) seizure disorder that is responsive only to (unknown) (no (unknown) (unknown) patient or discuss (units (unknown) date) the prospect of a 1 unknown) hour EEG here in our sleep lab verses (unknown) (no (unknown) (unknown) possible. Mother (units (unknown) date) had stated unknown) essentially perhaps she should. Meaghan contacted (unknown) (no (unknown) (unknown) prochlorperazine (units (unknown) date) [PROCHLORPERAZINE] unknown) Allergy (Mild, Verified 10/19/21 12:00) (unknown) (no (unknown) (unknown) promethazine (units (u nknown) date) unknown) (unknown) (no (unknown) (unknown) pseudoseizures, I (units (unknown) date) made an educated unknown) decision, in part because she is already on (unknown) (no (unknown) (unknown) quetiapine 100 mg (units (unknown) date) tablet 100 mg PO unknown) BEDTIME 02/27/22 [History Confirmed 02/27/22] (unknown) (no (unknown) (unknown) quetiapine 25 mg (units (unknown) date) tablet See Rx unknown) Instructions PO BEDTIME #45 tabs 01/18/22 [Rx (unknown) (no (unknown) (unknown) read the note (units ( unknown) date) carefully and unknown) recognize, using context, where these substitutions (unknown) (no (unknown) (unknown) refill from (units (unknown) date) Jon. unknown) (unknown) (no (unknown) (unknown) refilled her (units (u nknown) date) quetiapine, unknown) Lamictal, trazodone. Review of records at [place] (unknown) (no (unknown) (unknown) refills of her (units (unknown) date) medications. At unknown) that time, she reported she ws doing ok and I (unknown) (no (unknown) (unknown) revealed no (units (un known) date) evident seizure unknown) activity. (unknown) (no (unknown) (unknown) seizures. (units (unkn own) date) unknown) (unknown) (no (unknown) (unknown) sertraline 100 mg (units (unknown) date) tablet 200 mg PO unknown) DAILY #60 tabs 01/18/22 [Rx Confirmed (unknown) (no (unknown) (unknown) shellfish derived (units (unknown) date) [SHELLFISH DERIVED] unknown) Allergy (Severe, Verified 10/19/21 12:00) (unknown) (no (unknown) (unknown) so of that (units (unk nown) date) discussion, mom and unknown) patient exited the exam room and walked towards (unknown) (no (unknown) (unknown) software. Although (units (unknown) date) every effort is unknown) made to edit content, book illustrator errors (unknown) (no (unknown) (unknown) substance tramadol (units (unknown) date) or other unknown) medications previously managed by behavioral health. (unknown) (no (unknown) (unknown) sulfamethoxazole (units (unknown) date) [From BACTRIM] unknown) Allergy (Mild, Verified 10/19/21 12:00) (unknown) (no (unknown) (unknown) supply of diazepam (units (unknown) date) on the 3rd visit to unknown) [facility] mid month. By my (unknown) (no (unknown) (unknown) the lobby. I (units ( unknown) date) declared to staff unknown) that ?they are walking out? and mother repeated (unknown) (no (unknown) (unknown) themselves in (units (u nknown) date) regard to findings unknown) and response. Ultimately she received a 15 day (unknown) (no (unknown) (unknown) then,' but was (units ( unknown) date) apparently upset unknown) with me for making her daughter 'go cold turkey' (unknown) (no (unknown) (unknown) this statement as (units (unknown) date) they continue to unknown) walk around the corner. I related that I had (unknown) (no (unknown) (unknown) time whether (units (u nknown) date) patient and family unknown) expect me to continue to refill her controlled (unknown) (no (unknown) (unknown) timeline of her (units (unknown) date) visits and what had unknown) transpired this today. Within 5 minutes or (unknown) (no (unknown) (unknown) tramadol 50 mg (units (unknown) date) tablet 100 mg PO unknown) BID PRN pain #120 tabs 02/05/22 [Rx Confirmed (unknown) (no (unknown) (unknown) trazodone 100 mg (units (unknown) date) tablet See Rx unknown) Instructions .Route .COMPLEX #180 tabs 11/20/21 (unknown) (no (unknown) (unknown) trimethoprim [From (units (unknown) date) BACTRIM] Allergy unknown) (Mild, Verified 10/19/21 12:00) (unknown) (no (unknown) (unknown) true seizure (units (u nknown) date) activity, and would unknown) await Neurology input. I told patient and (unknown) (no (unknown) (unknown) via telehealth on (units (unknown) date) 01/18/2022, at unknown) which time patient declare that she was being (unknown) (no (unknown) (unknown) virtual visit. (units (unknown) date) unknown) (unknown) (no (unknown) (unknown) who saw patient at (units (unknown) date) Brittany is a unknown) friend of the family and was [place] that I (unknown) (no (unknown) (unknown) worked' and that (units (unknown) date) [facility] had unknown) diagnosed her and started her on diazepam for Result panel 5 (unknown) (no (unknown) (unknown) (no value) (units (unk nown) date) unknown) (unknown) (no (unknown) (unknown) Medications: (units (u nknown) date) unknown) (unknown) (no (unknown) (unknown) (no value) (units (unk nown) date) unknown) (unknown) (no (unknown) (unknown) (no value) (units (unk nown) date) unknown) (unknown) (no (unknown) (unknown) 02/27/22 (units (unkno wn) date) unknown) (unknown) (no (unknown) (unknown) 02/27/22 1342 (units ( unknown) date) unknown) (unknown) (no (unknown) (unknown) 11:32 (units (unkno wn) date) unknown) (unknown) (no (unknown) (unknown) ANAPHYLAXIS (units (un known) date) unknown) (unknown) (no (unknown) (unknown) ANALY Li (units ( unknown) date) [id number] unknown) (unknown) (no (unknown) (unknown) Breast cancer (units ( unknown) date) unknown) (unknown) (no (unknown) (unknown) CAD (coronary (units ( unknown) date) artery disease) unknown) (unknown) (no (unknown) (unknown) Discontinued (units (u nknown) date) Reason: Patient no unknown) longer taking TAKE 1/2 TABLET BY MOUTH (unknown) (no (unknown) (unknown) Discontinued (units (u nknown) date) Reason: Patient no unknown) longer taking 2 puffs inhalation QID PRN (unknown) (no (unknown) (unknown) Discontinued (units (u nknown) date) Reason: Patient no unknown) longer taking 25 mg PO TID PRN 270 tabs 0RF (unknown) (no (unknown) (unknown) Discontinued (units (u nknown) date) Reason: Patient no unknown) longer taking Pt unable to walk more then (unknown) (no (unknown) (unknown) Family Practice (units [...] nown) date) unknown) (unknown) (no (unknown) (unknown) Confirmed (units (unkn own) date) 02/27/22] unknown) (unknown) (no (unknown) (unknown) .COMPLEX #2 ea (units (unknown) date) 02/27/22 [Rx unknown) Confirmed 02/27/22] (unknown) (no (unknown) (unknown) 02/27/22 (units (unkno wn) date) unknown) (unknown) (no (unknown) (unknown) 02/27/22] (units (unkn own) date) unknown) (unknown) (no (unknown) (unknown) 1 hour EEG and if (units (unknown) date) any epileptiform unknown) electrical activity is noted, I might (unknown) (no (unknown) (unknown) 200ft without (units ( unknown) date) stopping to rest. unknown) 1 ea 0RF (unknown) (no (unknown) (unknown) 27-year-old female (units (unknown) date) here with her unknown) mother for medication review. History on chart (unknown) (no (unknown) (unknown) 8.5 grams 0RF (units ( unknown) date) shortness of breath unknown) or wheezing (unknown) (no (unknown) (unknown) : [id number] (units (u nknown) date) unknown) (unknown) (no (unknown) (unknown) After reviewing (units (unknown) date) records from unknown) [facility] that noted her video EEG revealed no (unknown) (no (unknown) (unknown) Age/Sex: 27 / F (units (unknown) date) Date of Service: unknown) (unknown) (no (unknown) (unknown) Allergies (units (unkn own) date) unknown) (unknown) (no (unknown) (unknown) Also, I delcared (units (unknown) date) that I would be unknown) happy to have a member of clinic administration (unknown) (no (unknown) (unknown) Assessment + Plan (units (unknown) date) unknown) (unknown) (no (unknown) (unknown) At that time, she (units (unknown) date) reported she was unknown) doing ok and I refilled her quetiapine, (unknown) (no (unknown) (unknown) Attending Dr: Estevan (units (unknown) date) Clementina Castorena MD unknown) (unknown) (no (unknown) (unknown) BMI 34.6 (units (un known) date) unknown) (unknown) (no (unknown) (unknown) BP 106/80 (units (u nknown) date) unknown) (unknown) (no (unknown) (unknown) 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 unknown) (unknown) (no (unknown) (unknown) Details: (units (unkno wn) date) unknown) (unknown) (no (unknown) (unknown) Discontinued (units (u nknown) date) unknown) (unknown) (no (unknown) (unknown) Documented By: (units (unknown) date) Estevan Castorena MD unknown) 02/27/22 1132 (unknown) (no (unknown) (unknown) Endometriosis (units ( unknown) date) unknown) (unknown) (no (unknown) (unknown) Family History (units (unknown) date) (Reviewed 10/19/21 unknown) @ 13:20 by Luann Lamb DO) (unknown) (no (unknown) (unknown) Grandmother (units (un [...] own) date) unknown) (unknown) (no (unknown) (unknown) History of ureter (units (unknown) date) stent unknown) (unknown) (no (unknown) (unknown) I am not clear at (units (unknown) date) this present time unknown) whether patient and family expect me to (unknown) (no (unknown) (unknown) I declared that, (units (unknown) date) in the interim unknown) before Neurology visit, I could perhaps order a (unknown) (no (unknown) (unknown) I relayed, as they (units (unknown) date) walked away, that unknown) I had asked management to come in to talk (unknown) (no (unknown) (unknown) I told mom that I (units (unknown) date) was reluctant to unknown) have her on diazepam if we can not document (unknown) (no (unknown) (unknown) Intake (units (unkno wn) date) unknown) (unknown) (no (unknown) (unknown) Iodinated Contrast (units (unknown) date) Media [IODINATED unknown) CONTRAST MEDIA - IV DYE] Allergy (Unknown, (unknown) (no (unknown) (unknown) Lamictal by (units (un known) date) records for seizure unknown) control and mood, not to refill her diazepam (unknown) (no (unknown) (unknown) Lamictal, (units (unkn own) date) trazodone. Review unknown) of records at [facility] reveals that she, even (unknown) (no (unknown) (unknown) Last Menstural (units (unknown) date) Cycle + Details unknown) (unknown) (no (unknown) (unknown) Loc: [facility] (units (unkno wn) date) unknown) (unknown) (no (unknown) (unknown) Major depressive (units (unknown) date) disorder unknown) (unknown) (no (unknown) (unknown) Medical History (units (unknown) date) (Updated 01/18/22 @ unknown) 15:46 by Estevan Castorena MD) (unknown) (no (unknown) (unknown) public health assistant (units (unknown) date) contacted clinic unknown) management and a termite control representative came up to (unknown) (no (unknown) (unknown) Medications (units (un known) date) unknown) (unknown) (no (unknown) (unknown) Mom even declared (units (unknown) date) that Dr. Hill unknown) (SP?) who works here at [facility] and (unknown) (no (unknown) (unknown) Morbid obesity (units (unknown) date) unknown) (unknown) (no (unknown) (unknown) Mother BRCA (units ( unknown) date) positive unknown) (unknown) (no (unknown) (unknown) Nephrolithiasis (units (unknown) date) (-2017) unknown) (unknown) (no (unknown) (unknown) Of note, her (units (u nknown) date) [facility] weeks centered on patient (unknown) (no (unknown) (unknown) Other Menstrual (units (unknown) date) Period: Surgical unknown) Menopause (unknown) (no (unknown) (unknown) Ovarian cyst (units [...] (unknown) (unknown) Patient: (units (unkno wn) date) Eileen Jorgensen unknown) M MR# (unknown) (no (unknown) (unknown) Pelvic congestion (units (unknown) date) (2013) unknown) (unknown) (no (unknown) (unknown) Penicillins (units (un known) date) [PENICILLINS] unknown) Allergy (Mild, Verified 10/19/21 12:00) (unknown) (no (unknown) (unknown) Position (units (unkno wn) date) Sitting unknown) (unknown) (no (unknown) (unknown) 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 (unknown) (no (unknown) (unknown) Pulse 86 (units (un known) date) unknown) (unknown) (no (unknown) (unknown) Pulse Oximetry (%) (units (unknown) date) 98 unknown) (unknown) (no (unknown) (unknown) Pulse Source (units (u nknown) date) Monitor unknown) (unknown) (no (unknown) (unknown) Reason For Visit (units (unknown) date) unknown) (unknown) (no (unknown) (unknown) Refilled (units (unkno wn) date) unknown) (unknown) (no (unknown) (unknown) Respiration 16 (units (unknown) date) unknown) (unknown) (no (unknown) (unknown) Reviewed notes (units (unknown) date) again prior to unknown) entering exam room. Introductions were made and (unknown) (no (unknown) (unknown) Signed By: (units (unk nown) date) <Electronically unknown) signed by Estevan Castorena MD> (unknown) (no (unknown) (unknown) Smoking Status: [...] Amaris Scott MD) (unknown) (no (unknown) (unknown) TWICE DAILY 30 (units (unknown) date) tabs 0RF unknown) (unknown) (no (unknown) (unknown) Temp 97.1 F L (units (unknown) date) unknown) (unknown) (no (unknown) (unknown) Temp Source (units (un known) date) Temporal Artery unknown) Scan (unknown) (no (unknown) (unknown) This note may have (units (unknown) date) been all or unknown) partially generated using voice recognition (unknown) (no (unknown) (unknown) This was based on (units (unknown) date) the fact that I had unknown) noted such a diagnosis and diazepam for it (unknown) (no (unknown) (unknown) Tobacco + (units (unkn own) date) Substance Use unknown) (unknown) (no (unknown) (unknown) Tobacco Status (units (unknown) date) unknown) (unknown) (no (unknown) (unknown) UNTIL RESPONSE 2 (units (unknown) date) ea 0RF unknown) (unknown) (no (unknown) (unknown) Verified 10/19/21 (units (unknown) date) 12:00) unknown) (unknown) (no (unknown) (unknown) Visit Reasons: (units (unknown) date) [facility] unknown) Follow up07 (unknown) (no (unknown) (unknown) Vitals (units (unkno wn) date) unknown) (unknown) (no (unknown) (unknown) Weight 189 lb 6 (units (unknown) date) oz unknown) (unknown) (no (unknown) (unknown) [Disabled parking (units (unknown) date) pass] unknown) (unknown) (no (unknown) (unknown) [Rx Confirmed (units ( unknown) date) 02/27/22] unknown) (unknown) (no (unknown) (unknown) acetaminophen (units ( unknown) date) [From Vicodin] unknown) Adverse Reaction (Verified 10/19/21 13:35) (unknown) (no (unknown) (unknown) adhesive (units (unkno wn) date) [ADHESIVE] Allergy unknown) (Mild, Verified 10/19/21 12:00) (unknown) (no (unknown) (unknown) albuterol sulfate (units (unknown) date) 90 mcg/actuation unknown) (ProAir HFA) (unknown) (no (unknown) (unknown) amoxicillin (units (un known) date) [AMOXICILLIN] unknown) Allergy (Mild, Verified 10/19/21 12:00) (unknown) (no (unknown) (unknown) and family declare (units (unknown) date) she has a Neurology unknown) visit later this month. (unknown) (no (unknown) (unknown) and family noting (units (unknown) date) seizure activity unknown) with notes from those visits speaking for (unknown) (no (unknown) (unknown) at [facility] (units (unknown) date) and an emergdency unknown) room visit at [facility] with records to (unknown) (no (unknown) (unknown) baclofen (units (unkno wn) date) unknown) (unknown) (no (unknown) (unknown) be scanned into (units (unknown) date) system if not unknown) already present. Saw patient 1st and only time (unknown) (no (unknown) (unknown) breakthrough (units (un known) date) seizures in unknown) patients that don't respond to an antiepileptic. When I (unknown) (no (unknown) (unknown) calculation, she (units (unknown) date) would have been off unknown) diazepam for a couple of weeks after the (unknown) (no (unknown) (unknown) cephalexin (units (unk nown) date) [CEPHALEXIN] unknown) Allergy (Unknown, Verified 10/19/21 12:00) (unknown) (no (unknown) (unknown) ciprofloxacin (units ( unknown) date) [CIPROFLOXACIN] unknown) Allergy (Unknown, Verified 10/19/21 12:00) (unknown) (no (unknown) (unknown) clindamycin (units (un known) date) [CLINDAMYCIN] unknown) Allergy (Unknown, Verified 10/19/21 12:00) (unknown) (no (unknown) (unknown) come to talk to (units (unknown) date) her today. Mom unknown) appeared eager to talk to someone in admin. (unknown) (no (unknown) (unknown) commented on the (units (unknown) date) prospect of an unknown) antiepileptic, mom relayed that 'none of them (unknown) (no (unknown) (unknown) consider diazepam (units (unknown) date) reintroduction. unknown) Usually that med is only given for (unknown) (no (unknown) (unknown) continue to refill (units (unknown) date) her controlled unknown) substance of tramadol for chronic pain or er (unknown) (no (unknown) (unknown) declared that (units ( unknown) date) perhaps they would unknown) be better served by another provider here. (unknown) (no (unknown) (unknown) diazepam 10 mg (units (unknown) date) tablet 10 mg PO QID unknown) #120 tabs 10/12/21 [Rx Confirmed 02/27/22] (unknown) (no (unknown) (unknown) diazepam 5 mg (units (u nknown) date) tablet (Valium) 5 unknown) mg PO TID PRN muscle spasm #10 tabs 10/19/21 [Rx (unknown) (no (unknown) (unknown) diazepam. I (units (un known) date) remarked on the unknown) fact that she had a > 1 hour EEG per [facility] that (unknown) (no (unknown) (unknown) did not get an (units (unknown) date) opportunity to unknown) formally examine patient or discuss the prospect (unknown) (no (unknown) (unknown) discharged from (units (unknown) date) Behavioral Health unknown) here and that I would need to take over (unknown) (no (unknown) (unknown) discuss with us the (units (unknown) date) timeline of pt's unknown) visits and what had transpired today at our (unknown) (no (unknown) (unknown) doxycycline (units (un known) date) [DOXYCYCLINE] unknown) Allergy (Mild, Verified 10/19/21 12:00) (unknown) (no (unknown) (unknown) epinephrine (units (un known) date) INJECT unknown) INTRAMUSCULARLY EVERY 20 MINUTES NEEDED FOR ANAPHYLAXIS (unknown) (no (unknown) (unknown) epinephrine 0.3 (units (unknown) date) mg/0.3 mL unknown) injection, auto-injector See Rx Instructions .Route (unknown) (no (unknown) (unknown) evident (units (unkno wn) date) epileptiform unknown) activity during events which were ultimately labeled (unknown) (no (unknown) (unknown) few weeks. (units (unk nown) date) unknown) (unknown) (no (unknown) (unknown) from Dr. Webb (units (unknown) date) which she picked up unknown) after our virtual visit. (unknown) (no (unknown) (unknown) given there has (units (unknown) date) been no clear unknown) seizure electrical activity for which she should (unknown) (no (unknown) (unknown) have occurred. If (units (unknown) date) there are any unknown) questions, please contact the Medical Records (unknown) (no (unknown) (unknown) household members: (units (unknown) date) spouse and children unknown) (unknown) (no (unknown) (unknown) hydrocodone (units (un known) date) Allergy (Mild, unknown) Verified 10/19/21 12:00) (unknown) (no (unknown) (unknown) in old records. (units (unknown) date) Patient's mother unknown) then stated they 'will take it for anxiety (unknown) (no (unknown) (unknown) in the work (units (un known) date) station that I saw unknown) where ?they are walking out? and mother repeated (unknown) (no (unknown) (unknown) interjected (units (un known) date) frequently and unknown) appeared frustrated that I did not understand that (unknown) (no (unknown) (unknown) iodine [IODINE] (units (unknown) date) Allergy (Mild, unknown) Verified 10/19/21 12:00) (unknown) (no (unknown) (unknown) lamotrigine 200 mg (units (unknown) date) tablet 200 mg PO unknown) DAILY #30 tabs 01/18/22 [Rx Confirmed (unknown) (no (unknown) (unknown) latex [LATEX] (units ( unknown) date) Allergy (Unknown, unknown) Verified 10/19/21 12:00) (unknown) (no (unknown) (unknown) lidocaine Adverse (units (unknown) date) Reaction (Verified unknown) 10/19/21 12:00) (unknown) (no (unknown) (unknown) lives (units (unkno wn) date) independently: Yes unknown) (unknown) (no (unknown) (unknown) marital status: (units (unknown) date) unknown) (unknown) (no (unknown) (unknown) may occur. (units (unk nown) date) Occasional unknown) wrong-word or 'sound-alike' substitutions may have (unknown) (no (unknown) (unknown) metformin 500 mg (units (unknown) date) tablet 500 mg PO unknown) BID #60 tabs 02/21/22 [Rx Confirmed 02/27/22] (unknown) (no (unknown) (unknown) metoclopramide (units (unknown) date) [METOCLOPRAMIDE] unknown) Allergy (Mild, Verified 10/19/21 12:00) (unknown) (no (unknown) (unknown) most of my (units (unk nown) date) attention was unknown) toward patient with questions directed to her. Mother (unknown) (no (unknown) (unknown) mother that I (units ( unknown) date) would be happy to unknown) prescribe a refill on her diazepam for anxiety. (unknown) (no (unknown) (unknown) nausea and (units (unk nown) date) vomiting unknown) (unknown) (no (unknown) (unknown) need that (units (unkn own) date) medication at unknown) present/until seen by Neurology in follow-up. Patient (unknown) (no (unknown) (unknown) occupational (units (u nknown) date) status: employed unknown) (unknown) (no (unknown) (unknown) occurred due to (units (unknown) date) the inherent unknown) limitations of voice recognition software. Please (unknown) (no (unknown) (unknown) of a 1 hour EEG (units (unknown) date) here in our sleep unknown) lab versus other potential evaluation before (unknown) (no (unknown) (unknown) of anxiety, panic (units (unknown) date) attacks, PTSD, unknown) depression. Reviewed two walk-in clinic visits (unknown) (no (unknown) (unknown) off diazepam. (units ( unknown) date) unknown) (unknown) (no (unknown) (unknown) other medications (units (unknown) date) previously managed unknown) by Behavioral Health. Of note, patient has (unknown) (no (unknown) (unknown) patient and mother (units (unknown) date) in the next couple unknown) of weeks. (unknown) (no (unknown) (unknown) patient exited the (units (unknown) date) exam room and unknown) [email or web address] I declared to staff (unknown) (no (unknown) (unknown) patient had a TBI (units (unknown) date) and that she had a unknown) seizure disorder that is responsive only to (unknown) (no (unknown) (unknown) perhaps another (units (unknown) date) provider might be unknown) gracious enough and available to visit with (unknown) (no (unknown) (unknown) prochlorperazine (units (unknown) date) [PROCHLORPERAZINE] unknown) Allergy (Mild, Verified 10/19/21 12:00) (unknown) (no (unknown) (unknown) promethazine (units (u nknown) date) unknown) (unknown) (no (unknown) (unknown) pseudoseizures, I (units (unknown) date) made an educated unknown) decision, in part because she is already on (unknown) (no (unknown) (unknown) quetiapine 100 mg (units (unknown) date) tablet 100 mg PO unknown) BEDTIME 02/27/22 [History Confirmed 02/27/22] (unknown) (no (unknown) (unknown) quetiapine 25 mg (units (unknown) date) tablet See Rx unknown) Instructions PO BEDTIME #45 tabs 01/18/22 [Rx (unknown) (no (unknown) (unknown) read the note (units ( unknown) date) carefully and unknown) recognize, using context, where these substitutions (unknown) (no (unknown) (unknown) received a (units (unk nown) date) narcotic script unknown) during one of the clinic and ED visits in the last (unknown) (no (unknown) (unknown) refill from (units (unknown) date) Jon. unknown) (unknown) (no (unknown) (unknown) refills of her (units (unknown) date) medications. unknown) (unknown) (no (unknown) (unknown) revealed no (units (un known) date) evident seizure unknown) activity. (unknown) (no (unknown) (unknown) seizures. (units (unkn own) date) unknown) (unknown) (no (unknown) (unknown) sertraline 100 mg (units (unknown) date) tablet 200 mg PO unknown) DAILY #60 tabs 01/18/22 [Rx Confirmed (unknown) (no (unknown) (unknown) she is seen by a (units (unknown) date) neurologist at the unknown) end of February, or discuss further that (unknown) (no (unknown) (unknown) shellfish derived (units (unknown) date) [SHELLFISH DERIVED] unknown) Allergy (Severe, Verified 10/19/21 12:00) (unknown) (no (unknown) (unknown) software. Although (units (unknown) date) every effort is unknown) made to edit content, book illustrator errors (unknown) (no (unknown) (unknown) sulfamethoxazole (units (unknown) date) [From BACTRIM] unknown) Allergy (Mild, Verified 10/19/21 12:00) (unknown) (no (unknown) (unknown) supply of diazepam (units (unknown) date) on the 3rd visit to unknown) [facility] mid month. By my (unknown) (no (unknown) (unknown) that I had not (units (unknown) date) refilled diazepam unknown) and forced her to go cold turkey.' I then (unknown) (no (unknown) (unknown) themselves in (units (u nknown) date) regard to findings unknown) and response. Ultimately she received a 15 day (unknown) (no (unknown) (unknown) then,' but was (units ( unknown) date) apparently upset unknown) with me for making her daughter 'go cold turkey' (unknown) (no (unknown) (unknown) this statement as (units (unknown) date) they continued to unknown) walk around the corner. (unknown) (no (unknown) (unknown) though discharged (units (unknown) date) from Behavioral unknown) [facility], had a monthly refill on her diazepam (unknown) (no (unknown) (unknown) to her, as a (units (un known) date) reminder to mom, unknown) but she continued out of the clinic. As result, I (unknown) (no (unknown) (unknown) tramadol 50 mg (units (unknown) date) tablet 100 mg PO unknown) BID PRN pain #120 tabs 02/05/22 [Rx Confirmed (unknown) (no (unknown) (unknown) trazodone 100 mg (units (unknown) date) tablet See Rx unknown) Instructions .Route .COMPLEX #180 tabs 11/20/21 (unknown) (no (unknown) (unknown) trimethoprim [From (units (unknown) date) BACTRIM] Allergy unknown) (Mild, Verified 10/19/21 12:00) (unknown) (no (unknown) (unknown) true seizure (units (u nknown) date) activity, and would unknown) await Neurology input. I told patient and (unknown) (no (unknown) (unknown) via telehealth on (units (unknown) date) 01/18/2022, at unknown) which time patient declare that she was being (unknown) (no (unknown) (unknown) who saw patient at (units (unknown) date) [employer] is a unknown) 'friend of the family and was appalled (unknown) (no (unknown) (unknown) work station. (units ( unknown) date) Within 5 minutes or unknown) so of that discussion stating, mom and (unknown) (no (unknown) (unknown) worked' and that (units (unknown) date) [facility] had unknown) diagnosed her and started her on diazepam for Result panel 6 (unknown) (no date) (unknown) (unknown) >100/HPF (units (unkn own) unknown) (unknown) (no date) (unknown) (unknown) >30 /HPF (units (unkn own) unknown) (unknown) (no date) (unknown) (unknown) 1+ (units (unkn own) unknown) (unknown) (no date) (unknown) (unknown) 5-10/HPF (units (unkn own) unknown) (unknown) (no date) (unknown) (unknown) Cult Not (units (unkn own) Indicated unknown) (unknown) (no date) (unknown) (unknown) Moderate (units (unkn own) (10-30) unknown) Result panel 7 (unknown) (no (unknown) (unknown) (no value) (units (unk nown) date) unknown) (unknown) (no (unknown) (unknown) Date of Service: (units (unknown) date) 03/21/22 unknown) (unknown) (no (unknown) (unknown) (no value) (units (unk nown) date) unknown) (unknown) (no (unknown) (unknown) 10 mg PO QID Qty: (units (unknown) date) 120 2RF unknown) (unknown) (no (unknown) (unknown) 100 mg PO BEDTIME (units (unknown) date) unknown) (unknown) (no (unknown) (unknown) 100 mg PO BID PRN (units (unknown) date) (Reason: pain) Qty: unknown) 120 0RF (unknown) (no (unknown) (unknown) 200 mg PO DAILY (units (unknown) date) Qty: 30 2RF unknown) (unknown) (no (unknown) (unknown) 200 mg PO DAILY (units (unknown) date) Qty: 60 2RF unknown) (unknown) (no (unknown) (unknown) 5 mg PO TID PRN (units (unknown) date) (Reason: muscle unknown) spasm) Qty: 10 0RF (unknown) (no (unknown) (unknown) 500 mg PO BID Qty: (units (unknown) date) 60 0RF unknown) (unknown) (no (unknown) (unknown) Allergies (units (unkn own) date) unknown) (unknown) (no (unknown) (unknown) Breast cancer (units ( unknown) date) unknown) (unknown) (no (unknown) (unknown) CAD (coronary (units ( unknown) date) artery disease) unknown) (unknown) (no (unknown) (unknown) Dose Instruction: (units (unknown) date) unknown) (unknown) (no (unknown) (unknown) ED Orders (units (unkn own) date) unknown) (unknown) (no (unknown) (unknown) Emergency Report (units (unknown) date) unknown) (unknown) (no (unknown) (unknown) Hold Instructions: (units (unknown) date) NEEDS TO SEE unknown) NEUROLOGY (unknown) (no (unknown) (unknown) Hold Instructions: (units (unknown) date) SEEN BY PSYCHIATRY unknown) (unknown) (no (unknown) (unknown) Home Medications (units (unknown) date) unknown) (unknown) (no (unknown) (unknown) Hyperlipidemia (units (unknown) date) unknown) (unknown) (no (unknown) (unknown) Hypertension (units (u nknown) date) unknown) (unknown) (no (unknown) (unknown) INJECT (units (unkno wn) date) INTRAMUSCULARLY unknown) EVERY 20 MINUTES NEEDED FOR ANAPHYLAXIS UNTIL (unknown) (no (unknown) (unknown) [facility] (units (unknown) date) [address] unknown) [place] [id number] (unknown) (no (unknown) (unknown) Lab Results (units (un known) date) unknown) (unknown) (no (unknown) (unknown) Previous Rx's (units ( unknown) date) unknown) (unknown) (no (unknown) (unknown) Rx Instructions: (units (unknown) date) unknown) (unknown) (no (unknown) (unknown) See Rx (units (unkno wn) date) Instructions unknown) .ROUTE .COMPLEX Qty: 180 0RF (unknown) (no (unknown) (unknown) See Rx (units (unkno wn) date) Instructions unknown) .ROUTE .COMPLEX Qty: 2 0RF (unknown) (no (unknown) (unknown) See Rx (units (unkno wn) date) Instructions PO unknown) BEDTIME Qty: 45 2RF (unknown) (no (unknown) (unknown) Stop: 03/21/22 (units (unknown) date) 14:55 unknown) (unknown) (no (unknown) (unknown) TAKE 2 TABLETS BY (units (unknown) date) MOUTH AT BEDTIME unknown) NEEDED FOR INSOMNIA (unknown) (no (unknown) (unknown) Take 1 tab p.o. at (units (unknown) date) HS. May take 1/2 unknown) tab p.o. during the day for anxiety (unknown) (no (unknown) (unknown) Urine Dip (units (unkn own) date) unknown) (unknown) (no (unknown) (unknown) Vital Signs - 8 hr (units (unknown) date) unknown) (unknown) (no (unknown) (unknown) s (units (unkno wn) date) unknown) (unknown) (no (unknown) (unknown) (no value) (units (unk nown) date) unknown) (unknown) (no (unknown) (unknown) 03/21/22 (units (unkno wn) date) Range/Units unknown) (unknown) (no (unknown) (unknown) 12:41 (units (unkno wn) date) unknown) (unknown) (no (unknown) (unknown) diazepam 10 mg (units (unknown) date) tablet unknown) (unknown) (no (unknown) (unknown) diazepam [Valium] (units (unknown) date) 5 mg tablet unknown) (unknown) (no (unknown) (unknown) epinephrine 0.3 (units (unknown) date) mg/0.3 mL unknown) auto-injector (unknown) (no (unknown) (unknown) lamotrigine 200 mg (units (unknown) date) tablet unknown) (unknown) (no (unknown) (unknown) metformin 500 mg (units (unknown) date) tablet unknown) (unknown) (no (unknown) (unknown) quetiapine 100 mg (units (unknown) date) tablet unknown) (unknown) (no (unknown) (unknown) quetiapine 25 mg (units (unknown) date) tablet unknown) (unknown) (no (unknown) (unknown) sertraline 100 mg (units (unknown) date) tablet unknown) (unknown) (no (unknown) (unknown) tramadol 50 mg (units (unknown) date) tablet unknown) (unknown) (no (unknown) (unknown) trazodone 100 mg (units (unknown) date) tablet unknown) (unknown) (no (unknown) (unknown) .COMPLEX #180 tabs (units (unknown) date) unknown) (unknown) (no (unknown) (unknown) 03/21/22 (units (unkno wn) date) unknown) (unknown) (no (unknown) (unknown) Medication (units (unk nown) date) Instructions unknown) Recorded (unknown) (no (unknown) (unknown) Medication (units (unk nown) date) Instructions unknown) Recorded Confirmed (unknown) (no (unknown) (unknown) tabs (units (unkno wn) date) unknown) (unknown) (no (unknown) (unknown) 03/21/22 12:41 (units (unknown) date) unknown) (unknown) (no (unknown) (unknown) 03/21/22 13:54 (units (unknown) date) unknown) (unknown) (no (unknown) (unknown) 12:12 (units (unkno wn) date) unknown) (unknown) (no (unknown) (unknown) : [id number] (units (u nknown) date) unknown) (unknown) (no (unknown) (unknown) Age/Sex: 27 / F (units (unknown) date) unknown) (unknown) (no (unknown) (unknown) Allergy/AdvReac (units (unknown) date) Type Severity unknown) Reaction Status Date / Time (unknown) (no (unknown) (unknown) 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 (unknown) (no (unknown) (unknown) Bedside Urine (units ( unknown) date) Bilirubin + unknown) 1 (unknown) (no (unknown) (unknown) Bedside Urine (units ( unknown) date) Glucose Negative unknown) (unknown) (no (unknown) (unknown) Bedside Urine (units ( unknown) date) Ketone - unknown) Negative (unknown) (no (unknown) (unknown) Bedside Urine (units ( unknown) date) Leukocytes + unknown) 70 (unknown) (no (unknown) (unknown) Bedside Urine (units ( unknown) date) Nitrite - unknown) Negative (unknown) (no (unknown) (unknown) Bedside Urine (units ( unknown) date) Occult Blood unknown) +++ (unknown) (no (unknown) (unknown) Bedside Urine (units ( unknown) date) Protein ++ 100 unknown) (unknown) (no (unknown) (unknown) Bedside Urine (units ( unknown) date) Urobilinogen - unknown) Negative (unknown) (no (unknown) (unknown) Bedside Urine pH (units (unknown) date) 8.0 unknown) (unknown) (no (unknown) (unknown) Blood Pressure (units (unknown) date) 129/71 03/21/22 unknown) 12:12 (unknown) (no (unknown) (unknown) Blood Pressure (units (unknown) date) 129 unknown) (unknown) (no (unknown) (unknown) CBC Auto Diff (units ( unknown) date) [Complete Blood unknown) Count AUTO DIFF] Stat (unknown) (no (unknown) (unknown) CMP [Comprehensive (units (unknown) date) Metabolic Panel] unknown) Stat (unknown) (no (unknown) (unknown) Chief complaint: (units (unknown) date) Urogenital-Female unknown) (unknown) (no (unknown) (unknown) Course (units (unkno wn) date) unknown) (unknown) (no (unknown) (unknown) : 1995 (units (unknown) date) Acct:[id number] unknown) (unknown) (no (unknown) (unknown) Departure (units (unkn own) date) unknown) (unknown) (no (unknown) (unknown) Discharge Plan (units (unknown) date) unknown) (unknown) (no (unknown) (unknown) ER Physician: (units ( unknown) date) Stephie Escalante D.O. unknown) (unknown) (no (unknown) (unknown) ETOH [Ethanol (units ( unknown) date) (ETOH)] Stat unknown) (unknown) (no (unknown) (unknown) Endometriosis (units ( unknown) date) unknown) (unknown) (no (unknown) (unknown) Esterase (units (unkno wn) date) unknown) (unknown) (no (unknown) (unknown) Exam (units (unkno wn) date) unknown) (unknown) (no (unknown) (unknown) Family History (units (unknown) date) (Reviewed 10/19/21 unknown) @ 13:20 by Luann Lamb DO) (unknown) (no (unknown) (unknown) General (units (unkno wn) date) unknown) (unknown) (no (unknown) (unknown) Grandmother (units (un known) date) Ovarian unknown) cancer (unknown) (no (unknown) (unknown) H/O unilateral (units (unknown) date) oophorectomy unknown) () (unknown) (no (unknown) (unknown) H/O: hysterectomy (units (unknown) date) unknown) (unknown) (no (unknown) (unknown) HPI - Female (units (u nknown) date) Genitourinary unknown) (unknown) (no (unknown) (unknown) HPI Narrative: (units (unknown) date) unknown) (unknown) (no (unknown) (unknown) Hematuria (units (unkn own) date) unknown) (unknown) (no (unknown) (unknown) History of Present (units (unknown) date) Illness unknown) (unknown) (no (unknown) (unknown) History of ureter (units (unknown) date) stent unknown) (unknown) (no (unknown) (unknown) IV DYE] (units (unkno wn) date) unknown) (unknown) (no (unknown) (unknown) Initial Vital (units ( unknown) date) Signs unknown) (unknown) (no (unknown) (unknown) Initial Vital (units ( unknown) date) Signs: unknown) (unknown) (no (unknown) (unknown) Iodinated Contrast (units (unknown) date) Media Allergy unknown) Unknown Verified 10/19/21 12:00 (unknown) (no (unknown) (unknown) Lab Data (units (unkno wn) date) unknown) (unknown) (no (unknown) (unknown) Labs: (units (unkno wn) date) unknown) (unknown) (no (unknown) (unknown) MDM - Female (units (u nknown) date) Genitourinary unknown) (unknown) (no (unknown) (unknown) Major depressive (units (unknown) date) disorder unknown) (unknown) (no (unknown) (unknown) Medical History (units (unknown) date) (Updated 01/18/22 @ unknown) 15:46 by Estevan Castorena MD) (unknown) (no (unknown) (unknown) Mode of arrival: (units (unknown) date) Ambulatory unknown) (unknown) (no (unknown) (unknown) Morbid obesity (units (unknown) date) unknown) (unknown) (no (unknown) (unknown) Mother BRCA (units ( unknown) date) positive unknown) (unknown) (no (unknown) (unknown) Nephrolithiasis (units (unknown) date) () unknown) (unknown) (no (unknown) (unknown) No Action (units (unkn own) date) unknown) (unknown) (no (unknown) (unknown) Ordered: (units (unkno wn) date) unknown) (unknown) (no (unknown) (unknown) Orders (units (unkno wn) date) unknown) (unknown) (no (unknown) (unknown) Ovarian cyst (units (u nknown) date) unknown) (unknown) (no (unknown) (unknown) Oxygen Delivery (units (unknown) date) Method 03/21/22 unknown) 12:12 (unknown) (no (unknown) (unknown) Oxygen Delivery (units (unknown) date) Method Room Air unknown) (unknown) (no (unknown) (unknown) PCOS (polycystic (units (unknown) date) ovarian syndrome) unknown) (unknown) (no (unknown) (unknown) Patellar (units (unkno wn) date) dislocation unknown) (unknown) (no (unknown) (unknown) Patient History (units (unknown) date) unknown) (unknown) (no (unknown) (unknown) Patient is a (units (u nknown) date) 27-year-old female unknown) with well documented pseudoseizures at a (unknown) (no (unknown) (unknown) Patient: (units (unkno wn) date) Eileen Jorgensen unknown) [place] MR# (unknown) (no (unknown) (unknown) Pelvic congestion (units (unknown) date) (2013) unknown) (unknown) (no (unknown) (unknown) Penicillins (units (un known) date) [PENICILLINS] unknown) Allergy Mild Verified 10/19/21 12:00 (unknown) (no (unknown) (unknown) Prescriptions: (units (unknown) date) unknown) (unknown) (no (unknown) (unknown) Prolactin Stat (units (unknown) date) unknown) (unknown) (no (unknown) (unknown) 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 (unknown) (no (unknown) (unknown) Pulse Oximetry (units (unknown) date) 100 03/21/22 unknown) 12:12 (unknown) (no (unknown) (unknown) Pulse Oximetry 100 (units (unknown) date) unknown) (unknown) (no (unknown) (unknown) Pulse Rate 95 H (units (unknown) date) 03/21/22 12:12 unknown) (unknown) (no (unknown) (unknown) Pulse Rate 95 H (units (unknown) date) unknown) (unknown) (no (unknown) (unknown) RESPONSE (units (unkno wn) date) unknown) (unknown) (no (unknown) (unknown) Related Data (units (u nknown) date) unknown) (unknown) (no (unknown) (unknown) Respiratory Rate (units (unknown) date) 22 03/21/22 12:12 unknown) (unknown) (no (unknown) (unknown) Respiratory Rate (units (unknown) date) 22 unknown) (unknown) (no (unknown) (unknown) Signed By: (units (unk nown) date) unknown) (unknown) (no (unknown) (unknown) Sodium Chloride (units (unknown) date) (Normal Saline unknown) 0.9%) 1,000 mls @ 1,000 mls/hr IV BOLUS ONE (unknown) (no (unknown) (unknown) Source: patient (units (unknown) date) unknown) (unknown) (no (unknown) (unknown) Stated complaint: (units (unknown) date) Lower left back unknown) pain (unknown) (no (unknown) (unknown) Status post (units (un known) date) appendectomy (2004) unknown) (unknown) (no (unknown) (unknown) Status [...] and unknown) adenoidectomy (unknown) (no (unknown) (unknown) Substance Use (units ( unknown) date) Type: does not use unknown) (unknown) (no (unknown) (unknown) Surgical History (units (unknown) date) (Reviewed 11/02/21 unknown) @ 12:04 by Amaris Scott MD) (unknown) (no (unknown) (unknown) Temperature 97.3 (units (unknown) date) F L 03/21/22 12:12 unknown) (unknown) (no (unknown) (unknown) Temperature 97.3 F (units (unknown) date) L unknown) (unknown) (no (unknown) (unknown) Time Seen by (units (u nknown) date) Provider: 03/21/22 unknown) 13:54 (unknown) (no (unknown) (unknown) Ur Culture (units (unk nown) date) Indicated? Cult unknown) not indicated (unknown) (no (unknown) (unknown) Ur Squamous Epith (units (unknown) date) Cells >30 /hpf H unknown) (0-5/HPF) (unknown) (no (unknown) (unknown) Urine Bacteria (units (unknown) date) Moderate (10-30) H unknown) (None) (unknown) (no (unknown) (unknown) Urine Drug Screen, (units (unknown) date) Rapid Stat unknown) (unknown) (no (unknown) (unknown) Urine Microscopic (units (unknown) date) Stat unknown) (unknown) (no (unknown) (unknown) Urine Mucus 1+ H (units (unknown) date) (Negative) unknown) (unknown) (no (unknown) (unknown) Urine RBC (units (unkn own) date) >100/hpf H unknown) (0-5/HPF) (unknown) (no (unknown) (unknown) Urine Specific (units (unknown) date) [place] 1.010 unknown) (unknown) (no (unknown) (unknown) Urine WBC (units (unkn own) date) 5-10/hpf H unknown) (0-5/HPF) (unknown) (no (unknown) (unknown) Vital Signs (units (un known) date) unknown) (unknown) (no (unknown) (unknown) Vital signs: (units (u nknown) date) unknown) (unknown) (no (unknown) (unknown) [From BACTRIM] (units (unknown) date) unknown) (unknown) (no (unknown) (unknown) [IODINATED (units (unk nown) date) CONTRAST MEDIA - unknown) (unknown) (no (unknown) (unknown) [METOCLOPRAMIDE] (units (unknown) date) unknown) (unknown) (no (unknown) (unknown) [PROCHLORPERAZINE] (units (unknown) date) unknown) (unknown) (no (unknown) (unknown) [SHELLFISH (units (unk nown) date) DERIVED] unknown) (unknown) (no (unknown) (unknown) acetaminophen (units ( unknown) date) [From Vicodin] unknown) AdvReac Rash Verified 10/19/21 13:35 (unknown) (no (unknown) (unknown) adhesive (units (unkno wn) date) [ADHESIVE] Allergy unknown) Mild Verified 10/19/21 12:00 (unknown) (no (unknown) (unknown) alcohol intake (units (unknown) date) frequency: unknown) holidays/special occasions only (unknown) (no (unknown) (unknown) amoxicillin (units (un known) date) [AMOXICILLIN] unknown) Allergy Mild Verified 10/19/21 12:00 (unknown) (no (unknown) (unknown) cephalexin (units (unk nown) date) [CEPHALEXIN] unknown) Allergy Unknown Verified 10/19/21 12:00 (unknown) (no (unknown) (unknown) ciprofloxacin (units ( unknown) date) [CIPROFLOXACIN] unknown) Allergy Unknown Verified 10/19/21 12:00 (unknown) (no (unknown) (unknown) clindamycin (units (un known) date) [CLINDAMYCIN] unknown) Allergy Unknown Verified 10/19/21 12:00 (unknown) (no (unknown) (unknown) diazepam 10 mg (units (unknown) date) tablet 10 mg PO QID unknown) #120 tabs 10/12/21 (unknown) (no (unknown) (unknown) diazepam 5 mg (units ( unknown) date) tablet (Valium) 5 unknown) mg PO TID PRN muscle spasm #10 10/19/21 (unknown) (no (unknown) (unknown) doxycycline (units (un known) date) [DOXYCYCLINE] unknown) Allergy Mild Verified 10/19/21 12:00 (unknown) (no (unknown) (unknown) epinephrine 0.3 (units (unknown) date) mg/0.3 mL See Rx unknown) Instructions .Route 02/27/22 (unknown) (no (unknown) (unknown) hydrocodone (units (un known) date) Allergy Mild rash unknown) Verified 10/19/21 12:00 (unknown) (no (unknown) (unknown) injection, (units (unk nown) date) auto-injector unknown) .COMPLEX #2 ea (unknown) (no (unknown) (unknown) iodine [IODINE] (units (unknown) date) Allergy Mild unknown) Verified 10/19/21 12:00 (unknown) (no (unknown) (unknown) lamotrigine 200 mg (units (unknown) date) tablet 200 mg PO unknown) DAILY #30 tabs 01/18/22 (unknown) (no (unknown) (unknown) latex [LATEX] (units ( unknown) date) Allergy Unknown unknown) Verified 10/19/21 12:00 (unknown) (no (unknown) (unknown) lidocaine AdvReac (units (unknown) date) Palpitation unknown) Verified 10/19/21 12:00 (unknown) (no (unknown) (unknown) metformin 500 mg (units (unknown) date) tablet 500 mg PO unknown) BID #60 tabs 02/21/22 (unknown) (no (unknown) (unknown) metoclopramide (units (unknown) date) Allergy Mild unknown) Verified 10/19/21 12:00 (unknown) (no (unknown) (unknown) neighboring (units (unk nown) date) facility where she unknown) has had 3 visits this month already for seizures. (unknown) (no (unknown) (unknown) prochlorperazine (units (unknown) date) Allergy Mild unknown) Verified 10/19/21 12:00 (unknown) (no (unknown) (unknown) quetiapine 100 mg (units (unknown) date) tablet 100 mg PO unknown) BEDTIME 02/27/22 02/27/22 (unknown) (no (unknown) (unknown) quetiapine 25 mg (units (unknown) date) tablet See Rx unknown) Instructions PO BEDTIME #45 01/18/22 (unknown) (no (unknown) (unknown) sertraline 100 mg (units (unknown) date) tablet 200 mg PO unknown) DAILY #60 tabs 01/18/22 (unknown) (no (unknown) (unknown) shellfish derived (units (unknown) date) Allergy Severe unknown) ANAPHYLAXIS Verified 10/19/21 12:00 (unknown) (no (unknown) (unknown) sulfamethoxazole (units (unknown) date) Allergy Mild RASH unknown) Verified 10/19/21 12:00 (unknown) (no (unknown) (unknown) tramadol 50 mg (units (unknown) date) tablet 100 mg PO unknown) BID PRN pain #120 tabs 02/05/22 (unknown) (no (unknown) (unknown) trazodone 100 mg (units (unknown) date) tablet See Rx unknown) Instructions .Route 11/20/21 (unknown) (no (unknown) (unknown) trimethoprim [From (units (unknown) date) BACTRIM] Allergy unknown) Mild RASH Verified 10/19/21 12:00 Result panel 8 (unknown) (no (unknown) (unknown) (no value) (units (unk nown) date) unknown) (unknown) (no (unknown) (unknown) Date of Service: (units (unknown) date) 03/21/22 unknown) (unknown) (no (unknown) (unknown) (no value) (units (unk nown) date) unknown) (unknown) (no (unknown) (unknown) 10 mg PO QID Qty: (units (unknown) date) 120 2RF unknown) (unknown) (no (unknown) (unknown) 100 mg PO BEDTIME (units (unknown) date) unknown) (unknown) (no (unknown) (unknown) 100 mg PO BID PRN (units (unknown) date) (Reason: pain) Qty: unknown) 120 0RF (unknown) (no (unknown) (unknown) 200 mg PO DAILY (units (unknown) date) Qty: 30 2RF unknown) (unknown) (no (unknown) (unknown) 200 mg PO DAILY (units (unknown) date) Qty: 60 2RF unknown) (unknown) (no (unknown) (unknown) 5 mg PO TID PRN (units (unknown) date) (Reason: muscle unknown) spasm) Qty: 10 0RF (unknown) (no (unknown) (unknown) 500 mg PO BID Qty: (units (unknown) date) 60 0RF unknown) (unknown) (no (unknown) (unknown) Allergies (units (unkn own) date) unknown) (unknown) (no (unknown) (unknown) Breast cancer (units ( unknown) date) unknown) (unknown) (no (unknown) (unknown) CAD (coronary (units ( unknown) date) artery disease) unknown) (unknown) (no (unknown) (unknown) Dose Instruction: (units (unknown) date) unknown) (unknown) (no (unknown) (unknown) ED Orders (units (unkn own) date) unknown) (unknown) (no (unknown) (unknown) Emergency Report (units (unknown) date) unknown) (unknown) (no (unknown) (unknown) Hold Instructions: (units (unknown) date) NEEDS TO SEE unknown) NEUROLOGY (unknown) (no (unknown) (unknown) Hold Instructions: (units (unknown) date) SEEN BY PSYCHIATRY unknown) (unknown) (no (unknown) (unknown) Home Medications (units (unknown) date) unknown) (unknown) (no (unknown) (unknown) Hyperlipidemia (units (unknown) date) unknown) (unknown) (no (unknown) (unknown) Hypertension (units (u nknown) date) unknown) (unknown) (no (unknown) (unknown) INJECT (units (unkno wn) date) INTRAMUSCULARLY unknown) EVERY 20 MINUTES NEEDED FOR ANAPHYLAXIS UNTIL (unknown) (no (unknown) (unknown) [facility] (units (unknown) date) [address] [place] [address] unknown) [place] [address] (unknown) (no (unknown) (unknown) Lab Results (units (un known) date) unknown) (unknown) (no (unknown) (unknown) Previous Rx's (units ( unknown) date) unknown) (unknown) (no (unknown) (unknown) Rx Instructions: (units (unknown) date) unknown) (unknown) (no (unknown) (unknown) See Rx (units (unkno wn) date) Instructions unknown) .ROUTE .COMPLEX Qty: 180 0RF (unknown) (no (unknown) (unknown) See Rx (units (unkno wn) date) Instructions unknown) .ROUTE .COMPLEX Qty: 2 0RF (unknown) (no (unknown) (unknown) See Rx (units (unkno wn) date) Instructions PO unknown) BEDTIME Qty: 45 2RF (unknown) (no (unknown) (unknown) Stop: 03/21/22 (units (unknown) date) 14:55 unknown) (unknown) (no (unknown) (unknown) TAKE 2 TABLETS BY (units (unknown) date) MOUTH AT BEDTIME unknown) NEEDED FOR INSOMNIA (unknown) (no (unknown) (unknown) Take 1 tab p.o. at (units (unknown) date) HS. May take 1/2 unknown) tab p.o. during the day for anxiety (unknown) (no (unknown) (unknown) Urine Dip (units (unkn own) date) unknown) (unknown) (no (unknown) (unknown) Vital Signs - 8 hr (units (unknown) date) unknown) (unknown) (no (unknown) (unknown) s (units (unkno wn) date) unknown) (unknown) (no (unknown) (unknown) (no value) (units (unk nown) date) unknown) (unknown) (no (unknown) (unknown) 03/21/22 (units (unkno wn) date) Range/Units unknown) (unknown) (no (unknown) (unknown) 12:41 (units (unkno wn) date) unknown) (unknown) (no (unknown) (unknown) diazepam 10 mg (units (unknown) date) tablet unknown) (unknown) (no (unknown) (unknown) diazepam [Valium] (units (unknown) date) 5 mg tablet unknown) (unknown) (no (unknown) (unknown) epinephrine 0.3 (units (unknown) date) mg/0.3 mL unknown) auto-injector (unknown) (no (unknown) (unknown) lamotrigine 200 mg (units (unknown) date) tablet unknown) (unknown) (no (unknown) (unknown) metformin 500 mg (units (unknown) date) tablet unknown) (unknown) (no (unknown) (unknown) quetiapine 100 mg (units (unknown) date) tablet unknown) (unknown) (no (unknown) (unknown) quetiapine 25 mg (units (unknown) date) tablet unknown) (unknown) (no (unknown) (unknown) sertraline 100 mg (units (unknown) date) tablet unknown) (unknown) (no (unknown) (unknown) tramadol 50 mg (units (unknown) date) tablet unknown) (unknown) (no (unknown) (unknown) trazodone 100 mg (units (unknown) date) tablet unknown) (unknown) (no (unknown) (unknown) .COMPLEX #180 tabs (units (unknown) date) unknown) (unknown) (no (unknown) (unknown) 03/21/22 (units (unkno wn) date) unknown) (unknown) (no (unknown) (unknown) Medication (units (unk nown) date) Instructions unknown) Recorded (unknown) (no (unknown) (unknown) Medication (units (unk nown) date) Instructions unknown) Recorded Confirmed (unknown) (no (unknown) (unknown) She was and (units (un known) date) evaluated on the unknown) 03/18/2022. She is taking quite a bit of Valium (unknown) (no (unknown) (unknown) tabs (units (unkno wn) date) unknown) (unknown) (no (unknown) (unknown) 03/21/22 12:41 (units (unknown) date) unknown) (unknown) (no (unknown) (unknown) 03/21/22 13:54 (units (unknown) date) unknown) (unknown) (no (unknown) (unknown) 12 point review of (units (unknown) date) systems is negative unknown) except for those stated above and HPI (unknown) (no (unknown) (unknown) 12:12 (units (unkno wn) date) unknown) (unknown) (no (unknown) (unknown) : [id number] (units (u nknown) date) unknown) (unknown) (no (unknown) (unknown) ABDOMEN: Soft, (units (unknown) date) nontender. unknown) Normoactive bowel sounds all 4 quadrants. 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 (unknown) (no (unknown) (unknown) Bedside Urine (units ( unknown) date) Bilirubin + unknown) 1 (unknown) (no (unknown) (unknown) Bedside Urine (units ( unknown) date) Glucose Negative unknown) (unknown) (no (unknown) (unknown) Bedside Urine (units ( unknown) date) Ketone - unknown) Negative (unknown) (no (unknown) (unknown) Bedside Urine (units ( unknown) date) Leukocytes + unknown) 70 (unknown) (no (unknown) (unknown) Bedside Urine (units ( unknown) date) Nitrite - unknown) Negative (unknown) (no (unknown) (unknown) Bedside Urine (units ( unknown) date) Occult Blood unknown) +++ (unknown) (no (unknown) (unknown) Bedside Urine (units ( unknown) date) Protein ++ 100 unknown) (unknown) (no (unknown) (unknown) Bedside Urine (units ( unknown) date) Urobilinogen - unknown) Negative (unknown) (no (unknown) (unknown) Bedside Urine pH (units (unknown) date) 8.0 unknown) (unknown) (no (unknown) (unknown) Blood Pressure (units (unknown) date) 129/71 03/21/22 unknown) 12:12 (unknown) (no (unknown) (unknown) Blood Pressure (units (unknown) date) unknown) (unknown) (no (unknown) (unknown) CARDIOVASCULAR: (units (unknown) date) Denies chest pain, unknown) palpitations, orthopnea, edema (unknown) (no (unknown) (unknown) CARDIOVASCULAR: (units (unknown) date) Regular rate and unknown) rhythm without murmurs, rubs or gallops. (unknown) (no (unknown) (unknown) CBC Auto Diff (units ( unknown) date) [Complete Blood unknown) Count AUTO DIFF] Stat (unknown) (no (unknown) (unknown) CMP [Comprehensive (units (unknown) date) Metabolic Panel] unknown) Stat (unknown) (no (unknown) (unknown) Chief complaint: (units (unknown) date) Urogenital-Female unknown) (unknown) (no (unknown) (unknown) Concern for (units (unk nown) date) possible kidney unknown) stone. In the waiting room she had a ?seizure' with (unknown) (no (unknown) (unknown) Course (units (unkno wn) date) unknown) (unknown) (no (unknown) (unknown) : 1995 (units (unknown) date) Acct:[id number] unknown) (unknown) (no (unknown) (unknown) Departure (units (unkn own) date) unknown) (unknown) (no (unknown) (unknown) Discharge Plan (units (unknown) date) unknown) (unknown) (no (unknown) (unknown) Discontinued (units (u nknown) date) Medications unknown) (unknown) (no (unknown) (unknown) ER Physician: (units ( unknown) date) Stephie Escalante D.O. unknown) (unknown) (no (unknown) (unknown) ETOH [Ethanol (units ( unknown) date) (ETOH)] Stat unknown) (unknown) (no (unknown) (unknown) EXTREMITIES: (units (u nknown) date) Normal range of unknown) motion, no clubbing or edema. Neurovascularly (unknown) (no (unknown) (unknown) Endometriosis (units ( unknown) date) unknown) (unknown) (no (unknown) (unknown) Esterase (units (unkno wn) date) unknown) (unknown) (no (unknown) (unknown) Exam (units (unkno wn) date) unknown) (unknown) (no (unknown) (unknown) Family History (units (unknown) date) (Reviewed 10/19/21 unknown) @ 13:20 by Luann Lamb DO) (unknown) (no (unknown) (unknown) GASTROINTESTINAL: (units (unknown) date) Denies nausea, unknown) vomiting, abdominal pain, diarrhea, (unknown) (no (unknown) (unknown) GENERAL: Alert 27 (units (unknown) date) year old female and unknown) in no acute distress. (unknown) (no (unknown) (unknown) GENERAL: Denies (units (unknown) date) chills, fatigue, unknown) malaise, fever, sweats, travel (unknown) (no (unknown) (unknown) : Mild left CVA (units (unknown) date) tenderness unknown) (unknown) (no (unknown) (unknown) : See HPI (units (u nknown) date) unknown) (unknown) (no (unknown) (unknown) General (units (unkno wn) date) unknown) (unknown) (no (unknown) (unknown) Grandmother (units (un known) date) Ovarian unknown) cancer (unknown) (no (unknown) (unknown) H/O unilateral (units (unknown) date) oophorectomy unknown) () (unknown) (no (unknown) (unknown) H/O: hysterectomy (units (unknown) date) unknown) (unknown) (no (unknown) (unknown) HEENT: Denies (units ( unknown) date) sinus pain, ear unknown) pain, sore throat, difficulty swallowing, neck (unknown) (no (unknown) (unknown) HEENT: Head (units (un known) date) atraumatic,EOMI, unknown) pupils reactive, face symmetric, moist mucous (unknown) (no (unknown) (unknown) HPI - Female (units (u nknown) date) Genitourinary unknown) (unknown) (no (unknown) (unknown) HPI Narrative: (units (unknown) date) unknown) (unknown) (no (unknown) (unknown) Hematuria (units (unkn own) date) unknown) (unknown) (no (unknown) (unknown) History of Present (units (unknown) date) Illness unknown) (unknown) (no (unknown) (unknown) History of ureter (units (unknown) date) stent unknown) (unknown) (no (unknown) (unknown) However patient (units (unknown) date) says she did not unknown) see the neurologist the neurologist had a (unknown) (no (unknown) (unknown) IV DYE] (units (unkno wn) date) unknown) (unknown) (no (unknown) (unknown) Initial Vital (units ( unknown) date) Signs unknown) (unknown) (no (unknown) (unknown) Initial Vital (units ( unknown) date) Signs: unknown) (unknown) (no (unknown) (unknown) Iodinated Contrast (units (unknown) date) Media Allergy unknown) Unknown Verified 10/19/21 12:00 (unknown) (no (unknown) (unknown) Lab Data (units (unkno wn) date) unknown) (unknown) (no (unknown) (unknown) Labs: (units (unkno wn) date) unknown) (unknown) (no (unknown) (unknown) MDM - Female (units (u nknown) date) Genitourinary unknown) (unknown) (no (unknown) (unknown) MUSCULOSKELETAL: (units (unknown) date) Denies weakness, unknown) joint pain, or bony pain (unknown) (no (unknown) (unknown) Major depressive (units (unknown) date) disorder unknown) (unknown) (no (unknown) (unknown) Medical History (units (unknown) date) (Updated 01/18/22 @ unknown) 15:46 by Estevan Castorena MD) (unknown) (no (unknown) (unknown) Mode of arrival: (units (unknown) date) Ambulatory unknown) (unknown) (no (unknown) (unknown) Morbid obesity (units (unknown) date) unknown) (unknown) (no (unknown) (unknown) Mother BRCA (units ( unknown) date) positive unknown) (unknown) (no (unknown) (unknown) NEUROLOGIC: See (units (unknown) date) HPI unknown) (unknown) (no (unknown) (unknown) NEUROLOGICAL: (units ( unknown) date) Alert and oriented unknown) x4. (unknown) (no (unknown) (unknown) Narrative: (units (unk nown) date) unknown) (unknown) (no (unknown) (unknown) Nephrolithiasis (units (unknown) date) () unknown) (unknown) (no (unknown) (unknown) No Action (units (unkn own) date) unknown) (unknown) (no (unknown) (unknown) Ordered: (units (unkno wn) date) unknown) (unknown) (no (unknown) (unknown) Orders (units (unkno wn) date) unknown) (unknown) (no (unknown) (unknown) Ovarian cyst (units (u nknown) date) unknown) (unknown) (no (unknown) (unknown) Oxygen Delivery (units (unknown) date) Method 03/21/22 unknown) 12:12 (unknown) (no (unknown) (unknown) Oxygen Delivery (units (unknown) date) Method Room Air unknown) (unknown) (no (unknown) (unknown) PCOS (polycystic (units (unknown) date) ovarian syndrome) unknown) (unknown) (no (unknown) (unknown) PSYCHIATRIC: No (units (unknown) date) concerning unknown) psychosocial issues. (unknown) (no (unknown) (unknown) Patellar (units (unkno wn) date) dislocation unknown) (unknown) (no (unknown) (unknown) Patient History (units (unknown) date) unknown) (unknown) (no (unknown) (unknown) Patient is a (units (u nknown) date) 27-year-old female unknown) with well documented pseudoseizures at a (unknown) (no (unknown) (unknown) Patient: (units (unkno wn) date) Eileen Jorgensen unknown) M MR# (unknown) (no (unknown) (unknown) Pelvic congestion (units (unknown) date) (2014) unknown) (unknown) (no (unknown) (unknown) Penicillins (units (un known) date) [PENICILLINS] unknown) Allergy Mild Verified 10/19/21 12:00 (unknown) (no (unknown) (unknown) Prescriptions: (units (unknown) date) unknown) (unknown) (no (unknown) (unknown) Prolactin Stat (units (unknown) date) unknown) (unknown) (no (unknown) (unknown) 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 (unknown) (no (unknown) (unknown) RESPIRATORY: (units (u nknown) date) Denies dyspnea, unknown) cough, wheezing, hemoptysis, sputum. (unknown) (no (unknown) (unknown) RESPONSE (units (unkno wn) date) unknown) (unknown) (no (unknown) (unknown) Related Data (units (u nknown) date) unknown) (unknown) (no (unknown) (unknown) Respiratory Rate (units (unknown) date) 22 03/21/22 12:12 unknown) (unknown) (no (unknown) (unknown) Respiratory Rate (units (unknown) date) 22 unknown) (unknown) (no (unknown) (unknown) Review of Systems (units (unknown) date) unknown) (unknown) (no (unknown) (unknown) SKIN: No rash, no (units (unknown) date) erythema, no unknown) pruritus (unknown) (no (unknown) (unknown) SKIN: Warm, dry, (units (unknown) date) no laceration, no unknown) petechiae, no rashes or lesions. (unknown) (no (unknown) (unknown) Signed By: (units (unk nown) date) unknown) (unknown) (no (unknown) (unknown) Sodium Chloride (units (unknown) date) (Normal Saline unknown) 0.9%) 1,000 mls @ 1,000 mls/hr IV BOLUS ONE (unknown) (no (unknown) (unknown) Source: patient (units (unknown) date) unknown) (unknown) (no (unknown) (unknown) Stated complaint: (units (unknown) date) Lower left back unknown) pain (unknown) (no (unknown) (unknown) Status post (units [...] and unknown) adenoidectomy (unknown) (no (unknown) (unknown) Substance Use (units ( unknown) date) Type: does not use unknown) (unknown) (no (unknown) (unknown) Surgical History (units (unknown) date) (Reviewed 11/02/21 unknown) @ 12:04 by Amaris Scott MD) (unknown) (no (unknown) (unknown) Temperature 97.3 (units (unknown) date) F L 03/21/22 12:12 unknown) (unknown) (no (unknown) (unknown) Temperature 97.3 F (units (unknown) date) L unknown) (unknown) (no (unknown) (unknown) Time Seen by (units (u nknown) date) Provider: 03/21/22 unknown) 13:54 (unknown) (no (unknown) (unknown) Ur Culture (units (unk nown) date) Indicated? Cult unknown) not indicated (unknown) (no (unknown) (unknown) Ur Squamous Epith (units (unknown) date) Cells >30 /hpf H unknown) (0-5/HPF) (unknown) (no (unknown) (unknown) Urine Bacteria (units (unknown) date) Moderate (10-30) H unknown) (None) (unknown) (no (unknown) (unknown) Urine Drug Screen, (units (unknown) date) Rapid Stat unknown) (unknown) (no (unknown) (unknown) Urine Microscopic (units (unknown) date) Stat unknown) (unknown) (no (unknown) (unknown) Urine Mucus 1+ H (units (unknown) date) (Negative) unknown) (unknown) (no (unknown) (unknown) Urine RBC (units (unkn own) date) >100/hpf H unknown) (0-5/HPF) (unknown) (no (unknown) (unknown) Urine Specific (units (unknown) date) [place] 1.010 unknown) (unknown) (no (unknown) (unknown) Urine WBC (units (unkn own) date) 5-10/hpf H unknown) (0-5/HPF) (unknown) (no (unknown) (unknown) Vital Signs (units (un known) date) unknown) (unknown) (no (unknown) (unknown) Vital signs: (units (u nknown) date) unknown) (unknown) (no (unknown) (unknown) [From BACTRIM] (units (unknown) date) unknown) (unknown) (no (unknown) (unknown) [IODINATED (units (unk nown) date) CONTRAST MEDIA - unknown) (unknown) (no (unknown) (unknown) [METOCLOPRAMIDE] (units (unknown) date) unknown) (unknown) (no (unknown) (unknown) [PROCHLORPERAZINE] (units (unknown) date) unknown) (unknown) (no (unknown) (unknown) [SHELLFISH (units (unk nown) date) DERIVED] unknown) (unknown) (no (unknown) (unknown) acetaminophen (units ( unknown) date) [From Vicodin] unknown) AdvReac Rash Verified 10/19/21 13:35 (unknown) (no (unknown) (unknown) adhesive (units (unkno wn) date) [ADHESIVE] Allergy unknown) Mild Verified 10/19/21 12:00 (unknown) (no (unknown) (unknown) alcohol intake (units (unknown) date) frequency: unknown) holidays/special occasions only (unknown) (no (unknown) (unknown) amoxicillin (units (un known) date) [AMOXICILLIN] unknown) Allergy Mild Verified 10/19/21 12:00 (unknown) (no (unknown) (unknown) brought back to a (units (unknown) date) room. unknown) (unknown) (no (unknown) (unknown) cephalexin (units (unk nown) date) [CEPHALEXIN] unknown) Allergy Unknown Verified 10/19/21 12:00 (unknown) (no (unknown) (unknown) ciprofloxacin (units ( unknown) date) [CIPROFLOXACIN] unknown) Allergy Unknown Verified 10/19/21 12:00 (unknown) (no (unknown) (unknown) clindamycin (units (un known) date) [CLINDAMYCIN] unknown) Allergy Unknown Verified 10/19/21 12:00 (unknown) (no (unknown) (unknown) constipation, (units ( unknown) date) melena. unknown) (unknown) (no (unknown) (unknown) daily lead target (units (unknown) date) mg tablets 4 times unknown) a day. There was an egg agreeance with the (unknown) (no (unknown) (unknown) diazepam 10 mg (units (unknown) date) tablet 10 mg PO QID unknown) #120 tabs 10/12/21 (unknown) (no (unknown) (unknown) diazepam 5 mg (units ( unknown) date) tablet (Valium) 5 unknown) mg PO TID PRN muscle spasm #10 10/19/21 (unknown) (no (unknown) (unknown) doxycycline (units (un known) date) [DOXYCYCLINE] unknown) Allergy Mild Verified 10/19/21 12:00 (unknown) (no (unknown) (unknown) epinephrine 0.3 (units (unknown) date) mg/0.3 mL See Rx unknown) Instructions .Route 02/27/22 (unknown) (no (unknown) (unknown) eye fluttering. (units (unknown) date) It lasted briefly unknown) there was no postictal. She was promptly (unknown) (no (unknown) (unknown) family emergency (units (unknown) date) and now she has an unknown) appointment on 7. She is not on anti (unknown) (no (unknown) (unknown) fell in something (units (unknown) date) landed on her. unknown) Today she is here for left flank pain. (unknown) (no (unknown) (unknown) given to her for (units (unknown) date) 40 tablets. She unknown) was supposed to see a neurologist yesterday. (unknown) (no (unknown) (unknown) guarding or (units (un known) date) rebound. unknown) (unknown) (no (unknown) (unknown) hydrocodone (units (un known) date) Allergy Mild rash unknown) Verified 10/19/21 12:00 (unknown) (no (unknown) (unknown) injection, (units (unk nown) date) auto-injector unknown) .COMPLEX #2 ea (unknown) (no (unknown) (unknown) intact (units (unkno wn) date) unknown) (unknown) (no (unknown) (unknown) iodine [IODINE] (units (unknown) date) Allergy Mild unknown) Verified 10/19/21 12:00 (unknown) (no (unknown) (unknown) lamotrigine 200 mg (units (unknown) date) tablet 200 mg PO unknown) DAILY #30 tabs 01/18/22 (unknown) (no (unknown) (unknown) latex [LATEX] (units ( unknown) date) Allergy Unknown unknown) Verified 10/19/21 12:00 (unknown) (no (unknown) (unknown) lidocaine AdvReac (units (unknown) date) Palpitation unknown) Verified 10/19/21 12:00 (unknown) (no (unknown) (unknown) membranes (units (unkn own) date) unknown) (unknown) (no (unknown) (unknown) metformin 500 mg (units (unknown) date) tablet 500 mg PO unknown) BID #60 tabs 02/21/22 (unknown) (no (unknown) (unknown) metoclopramide (units (unknown) date) Allergy Mild unknown) Verified 10/19/21 12:00 (unknown) (no (unknown) (unknown) neighboring (units (unk nown) date) facility where she unknown) has had 3 visits this month already for seizures. (unknown) (no (unknown) (unknown) pain (units (unkno wn) date) unknown) (unknown) (no (unknown) (unknown) physician mother (units (unknown) date) and patient to try unknown) and taper her down. A prescription was (unknown) (no (unknown) (unknown) prochlorperazine (units (unknown) date) Allergy Mild unknown) Verified 10/19/21 12:00 (unknown) (no (unknown) (unknown) quetiapine 100 mg (units (unknown) date) tablet 100 mg PO unknown) BEDTIME 02/27/22 02/27/22 (unknown) (no (unknown) (unknown) quetiapine 25 mg (units (unknown) date) tablet See Rx unknown) Instructions PO BEDTIME #45 01/18/22 (unknown) (no (unknown) (unknown) seizure (units (unkno wn) date) medications. She unknown) actually had multiple CTs done on the he has she (unknown) (no (unknown) (unknown) sertraline 100 mg (units (unknown) date) tablet 200 mg PO unknown) DAILY #60 tabs 01/18/22 (unknown) (no (unknown) (unknown) shellfish derived (units (unknown) date) Allergy Severe unknown) ANAPHYLAXIS Verified 10/19/21 12:00 (unknown) (no (unknown) (unknown) sulfamethoxazole (units (unknown) date) Allergy Mild RASH unknown) Verified 10/19/21 12:00 (unknown) (no (unknown) (unknown) tramadol 50 mg (units (unknown) date) tablet 100 mg PO unknown) BID PRN pain #120 tabs 02/05/22 (unknown) (no (unknown) (unknown) trazodone 100 mg (units (unknown) date) tablet See Rx unknown) Instructions .Route 11/20/21 (unknown) (no (unknown) (unknown) trimethoprim [From (units (unknown) date) BACTRIM] Allergy unknown) Mild RASH Verified 10/19/21 12:00 Result panel 9 (unknown) (no date) (unknown) (unknown) 0 /uL (unkn own) (unknown) (no date) (unknown) (unknown) 0 /uL (unkn own) (unknown) (no date) (unknown) (unknown) 0.2 % (unkn own) (unknown) (no date) (unknown) (unknown) 0.4 % (unkn own) (unknown) (no date) (unknown) (unknown) 13.1 % (unkn own) (unknown) (no date) (unknown) (unknown) 13.5 g/dL (unkn own) (unknown) (no date) (unknown) (unknown) 1600 /uL (unkn own) (unknown) (no date) (unknown) (unknown) 19.7 % (unkn own) (unknown) (no date) (unknown) (unknown) 219 X10 3/uL (unkn own) (unknown) (no date) (unknown) (unknown) 31.6 PG (unkn own) (unknown) (no date) (unknown) (unknown) 36.0 % (unkn own) (unknown) (no date) (unknown) (unknown) 37.5 % (unkn own) (unknown) (no date) (unknown) (unknown) 4.28 X10 6/uL (unkn own) (unknown) (no date) (unknown) (unknown) 5900 /uL (unkn own) (unknown) (no date) (unknown) (unknown) 700 /uL (unkn own) (unknown) (no date) (unknown) (unknown) 71.1 % (unkn own) (unknown) (no date) (unknown) (unknown) 8.4 X10 3/uL (unkn own) (unknown) (no date) (unknown) (unknown) 8.6 % (unkn own) (unknown) (no date) (unknown) (unknown) 87.7 fL (unkn own) Result panel 10 (unknown) (no date) (unknown) (unknown) > 60 mL/min (unkn own) (unknown) (no date) (unknown) (unknown) < 10 mg/dL (unkn own) (unknown) (no date) (unknown) (unknown) 0.3 mg/dL (unkn own) (unknown) (no date) (unknown) (unknown) 0.78 mg/dL (unkn own) (unknown) (no date) (unknown) (unknown) 1.4 (units unknown) (unknown) (unknown) (no date) (unknown) (unknown) 10 mg/dL (unkn own) (unknown) (no date) (unknown) (unknown) 106 mg/dL (unkn own) (unknown) (no date) (unknown) (unknown) 106 mmol/L (unkn own) (unknown) (no date) (unknown) (unknown) 12.8 (units unknown) (unknown) (unknown) (no date) (unknown) (unknown) 14 IU/L (unkn own) (unknown) (no date) (unknown) (unknown) 140 mmol/L (unkn own) (unknown) (no date) (unknown) (unknown) 16 IU/L (unkn own) (unknown) (no date) (unknown) (unknown) 2.9 g/dL (unkn own) (unknown) (no date) (unknown) (unknown) 26 mmol/L (unkn own) (unknown) (no date) (unknown) (unknown) 4.1 g/dL (unkn own) (unknown) (no date) (unknown) (unknown) 4.2 mmol/L (unkn own) (unknown) (no date) (unknown) (unknown) 51 U/L (unkn own) (unknown) (no date) (unknown) (unknown) 7.0 g/dL (unkn own) (unknown) (no date) (unknown) (unknown) 8.8 mg/dL (unkn own) Result panel 11 (unknown) (no date) (unknown) (unknown) > 60 mL/min (unkn own) (unknown) (no date) (unknown) (unknown) < 10 mg/dL (unkn own) (unknown) (no date) (unknown) (unknown) 0.3 mg/dL (unkn own) (unknown) (no date) (unknown) (unknown) 0.78 mg/dL (unkn own) (unknown) (no date) (unknown) (unknown) 1.4 (units unknown) (unknown) (unknown) (no date) (unknown) (unknown) 10 mg/dL (unkn own) (unknown) (no date) (unknown) (unknown) 106 mg/dL (unkn own) (unknown) (no date) (unknown) (unknown) 106 mmol/L (unkn own) (unknown) (no date) (unknown) (unknown) 12.8 (units unknown) (unknown) (unknown) (no date) (unknown) (unknown) 14 IU/L (unkn own) (unknown) (no date) (unknown) (unknown) 140 mmol/L (unkn own) (unknown) (no date) (unknown) (unknown) 16 IU/L (unkn own) (unknown) (no date) (unknown) (unknown) 2.9 g/dL (unkn own) (unknown) (no date) (unknown) (unknown) 26 mmol/L (unkn own) (unknown) (no date) (unknown) (unknown) 27.0 ng/mL (unkn own) (unknown) (no date) (unknown) (unknown) 4.1 g/dL (unkn own) (unknown) (no date) (unknown) (unknown) 4.2 mmol/L (unkn own) (unknown) (no date) (unknown) (unknown) 51 U/L (unkn own) (unknown) (no date) (unknown) (unknown) 7.0 g/dL (unkn own) (unknown) (no date) (unknown) (unknown) 8.8 mg/dL (unkn own) Result panel 12 (unknown) (no (unknown) (unknown) (no value) (units (unk nown) date) unknown) (unknown) (no (unknown) (unknown) Date of Service: (units (unknown) date) 03/21/22 unknown) (unknown) (no (unknown) (unknown) (no value) (units (unk nown) date) unknown) (unknown) (no (unknown) (unknown) <Electronically (units (unknown) date) signed by Stephie Escalante D.O.> (unknown) (no (unknown) (unknown) 03/21/22 14:50 (units (unknown) date) unknown) (unknown) (no (unknown) (unknown) 03/21/22 1919 (units ( unknown) date) unknown) (unknown) (no (unknown) (unknown) 10 mg PO QID Qty: (units (unknown) date) 120 2RF unknown) (unknown) (no (unknown) (unknown) 100 mg PO BEDTIME (units (unknown) date) unknown) (unknown) (no (unknown) (unknown) 100 mg PO BID PRN (units (unknown) date) (Reason: pain) Qty: unknown) 120 0RF (unknown) (no (unknown) (unknown) 100 mg PO Q12H 5 (units (unknown) date) Days Qty: 10 0RF unknown) (unknown) (no (unknown) (unknown) 200 mg PO DAILY (units (unknown) date) Qty: 30 2RF unknown) (unknown) (no (unknown) (unknown) 200 mg PO DAILY (units (unknown) date) Qty: 60 2RF unknown) (unknown) (no (unknown) (unknown) 5 mg PO TID PRN (units (unknown) date) (Reason: muscle unknown) spasm) Qty: 10 0RF (unknown) (no (unknown) (unknown) 500 mg PO BID Qty: (units (unknown) date) 60 0RF unknown) (unknown) (no (unknown) (unknown) Admin: 03/21/22 (units (unknown) date) 15:18 Dose: 1,000 unknown) mls/hr (unknown) (no (unknown) (unknown) Allergies (units (unkn own) date) unknown) (unknown) (no (unknown) (unknown) Breast cancer (units ( unknown) date) unknown) (unknown) (no (unknown) (unknown) CAD (coronary (units ( unknown) date) artery disease) unknown) (unknown) (no (unknown) (unknown) Documented By: ETELVINA (units (unknown) date) unknown) (unknown) (no (unknown) (unknown) Documented By: NR (units (unknown) date) unknown) (unknown) (no (unknown) (unknown) Dose Instruction: (units (unknown) date) unknown) (unknown) (no (unknown) (unknown) ED Orders (units (unkn own) date) unknown) (unknown) (no (unknown) (unknown) Emergency Report (units (unknown) date) unknown) (unknown) (no (unknown) (unknown) Hold Instructions: (units (unknown) date) NEEDS TO SEE unknown) NEUROLOGY (unknown) (no (unknown) (unknown) Hold Instructions: (units (unknown) date) SEEN BY PSYCHIATRY unknown) (unknown) (no (unknown) (unknown) Home Medications (units (unknown) date) unknown) (unknown) (no (unknown) (unknown) Hyperlipidemia (units (unknown) date) unknown) (unknown) (no (unknown) (unknown) Hypertension (units (u nknown) date) unknown) (unknown) (no (unknown) (unknown) INJECT (units (unkno wn) date) INTRAMUSCULARLY unknown) EVERY 20 MINUTES NEEDED FOR ANAPHYLAXIS UNTIL (unknown) (no (unknown) (unknown) [facility] (units (unknown) date) [address] [place] [address] unknown) [place] [address] (unknown) (no (unknown) (unknown) Lab Results (units (un known) date) unknown) (unknown) (no (unknown) (unknown) Last Admin: (units (un known) date) 03/21/22 16:07 unknown) Dose: 15 mg (unknown) (no (unknown) (unknown) Last Infusion: (units (unknown) date) 03/21/22 16:38 unknown) Dose: 0 mls/hr (unknown) (no (unknown) (unknown) Previous Rx's (units ( unknown) date) unknown) (unknown) (no (unknown) (unknown) Rx Instructions: (units (unknown) date) unknown) (unknown) (no (unknown) (unknown) See Rx (units (unkno wn) date) Instructions unknown) .ROUTE .COMPLEX Qty: 180 0RF (unknown) (no (unknown) (unknown) See Rx (units (unkno wn) date) Instructions unknown) .ROUTE .COMPLEX Qty: 2 0RF (unknown) (no (unknown) (unknown) See Rx (units (unkno wn) date) Instructions PO unknown) BEDTIME Qty: 45 2RF (unknown) (no (unknown) (unknown) Stop: 03/21/22 (units (unknown) date) 14:55 unknown) (unknown) (no (unknown) (unknown) Stop: 03/21/22 (units (unknown) date) 16:00 unknown) (unknown) (no (unknown) (unknown) TAKE 2 TABLETS BY (units (unknown) date) MOUTH AT BEDTIME unknown) NEEDED FOR INSOMNIA (unknown) (no (unknown) (unknown) Take 1 tab p.o. at (units (unknown) date) HS. May take 1/2 unknown) tab p.o. during the day for anxiety (unknown) (no (unknown) (unknown) Urine Dip (units (unkn own) date) unknown) (unknown) (no (unknown) (unknown) Vital Signs - 8 hr (units (unknown) date) unknown) (unknown) (no (unknown) (unknown) must administer (units (unknown) date) with a meal/food unknown) (unknown) (no (unknown) (unknown) s (units (unkno wn) date) unknown) (unknown) (no (unknown) (unknown) (no value) (units (unk nown) date) unknown) (unknown) (no (unknown) (unknown) 03/21/22 03/21/22 (units (unknown) date) 03/21/22 unknown) Range/Units (unknown) (no (unknown) (unknown) 12:41 14:50 14:50 (units (unknown) date) unknown) (unknown) (no (unknown) (unknown) diazepam 10 mg (units (unknown) date) tablet unknown) (unknown) (no (unknown) (unknown) diazepam [Valium] (units (unknown) date) 5 mg tablet unknown) (unknown) (no (unknown) (unknown) epinephrine 0.3 (units (unknown) date) mg/0.3 mL unknown) auto-injector (unknown) (no (unknown) (unknown) lamotrigine 200 mg (units (unknown) date) tablet unknown) (unknown) (no (unknown) (unknown) metformin 500 mg (units (unknown) date) tablet unknown) (unknown) (no (unknown) (unknown) nitrofurantoin (units (unknown) date) monohyd/m-cryst unknown) [Macrobid] 100 mg capsule (unknown) (no (unknown) (unknown) quetiapine 100 mg (units (unknown) date) tablet unknown) (unknown) (no (unknown) (unknown) quetiapine 25 mg (units (unknown) date) tablet unknown) (unknown) (no (unknown) (unknown) sertraline 100 mg (units (unknown) date) tablet unknown) (unknown) (no (unknown) (unknown) tramadol 50 mg (units (unknown) date) tablet unknown) (unknown) (no (unknown) (unknown) trazodone 100 mg (units (unknown) date) tablet unknown) (unknown) (no (unknown) (unknown) .COMPLEX #180 tabs (units (unknown) date) unknown) (unknown) (no (unknown) (unknown) 03/21/22 (units (unkno wn) date) unknown) (unknown) (no (unknown) (unknown) 40 tablets 2 days (units (unknown) date) ago. 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 She is taking quite a bit of Valium (unknown) (no (unknown) (unknown) for a few weeks (units (unknown) date) out. We discussed unknown) the risk of abruptly stopping Valium which (unknown) (no (unknown) (unknown) tabs (units (unkno wn) date) unknown) (unknown) (no (unknown) (unknown) the last 1 week (units (unknown) date) she has been taking unknown) 3 a day instead of 4 today. I think down (unknown) (no (unknown) (unknown) *Continue to take (units (unknown) date) medications as unknown) directed (unknown) (no (unknown) (unknown) *Follow up with (units (unknown) date) your primary care unknown) provider in 2-3 days or call [phone] (unknown) (no (unknown) (unknown) *Return to ER if (units (unknown) date) you should have unknown) fever chills weakness or any new, worsening or (unknown) (no (unknown) (unknown) *What to do: At (units (unknown) date) this time will unknown) start you on antibiotics. Decision to not do a (unknown) (no (unknown) (unknown) *You have been (units (unknown) date) diagnosed with UTI unknown) (unknown) (no (unknown) (unknown) 03/21/22 12:41 (units (unknown) date) unknown) (unknown) (no (unknown) (unknown) 03/21/22 14:50 (units (unknown) date) unknown) (unknown) (no (unknown) (unknown) 12 point review of (units (unknown) date) systems is negative unknown) except for those stated above and HPI (unknown) (no (unknown) (unknown) 12:12 03/21/22 (units (unknown) date) unknown) (unknown) (no (unknown) (unknown) 16:06 03/21/22 (units (unknown) date) unknown) (unknown) (no (unknown) (unknown) 16:07 (units (unkno wn) date) unknown) (unknown) (no (unknown) (unknown) 16:07 03/21/22 (units (unknown) date) unknown) (unknown) (no (unknown) (unknown) 16:29 03/21/22 (units (unknown) date) unknown) (unknown) (no (unknown) (unknown) 16:30 (units (unkno wn) date) unknown) (unknown) (no (unknown) (unknown) : [id number] (units (u nknown) date) unknown) (unknown) (no (unknown) (unknown) ABDOMEN: Soft, (units (unknown) date) nontender. unknown) Normoactive bowel sounds all 4 quadrants. No (unknown) (no (unknown) (unknown) ALT 14 (<35) (units (unknown) date) IU/L unknown) (unknown) (no (unknown) (unknown) AST 16 (14-36) (units (unknown) date) IU/L unknown) (unknown) (no (unknown) (unknown) Activity (units (unkno wn) date) Restrictions/Additi unknown) onal Instructions: (unknown) (no (unknown) (unknown) Age/Sex: 27 / F (units (unknown) date) unknown) (unknown) (no (unknown) (unknown) Albumin 4.1 (units (unknown) date) (3.5-5.0) g/dL unknown) (unknown) (no (unknown) (unknown) Albumin/Globulin (units (unknown) date) Ratio 1.4 unknown) (1.0-2.8) (unknown) (no (unknown) (unknown) Alkaline (units (unkno wn) date) Phosphatase 51 unknown) (38-126) U/L (unknown) (no (unknown) (unknown) Allergy/AdvReac (units (unknown) date) Type Severity unknown) Reaction Status Date / Time (unknown) (no (unknown) (unknown) 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 (unknown) (no (unknown) (unknown) BUN 10 (7-17) (units (unknown) date) mg/dL unknown) (unknown) (no (unknown) (unknown) BUN/Creatinine (units (unknown) date) Ratio 12.8 unknown) (6-22) (unknown) (no (unknown) (unknown) Baso # (Auto) 0 (units (unknown) date) (0-100) /uL unknown) (unknown) (no (unknown) (unknown) Baso % (Auto) (units ( unknown) date) 0.2 (0-2) % unknown) (unknown) (no (unknown) (unknown) Bedside Urine (units ( unknown) date) Bilirubin + unknown) 1 (unknown) (no (unknown) (unknown) Bedside Urine (units ( unknown) date) Glucose Negative unknown) (unknown) (no (unknown) (unknown) Bedside Urine (units ( unknown) date) Ketone - unknown) Negative (unknown) (no (unknown) (unknown) Bedside Urine (units ( unknown) date) Leukocytes + unknown) 70 (unknown) (no (unknown) (unknown) Bedside Urine (units ( unknown) date) Nitrite - unknown) Negative (unknown) (no (unknown) (unknown) Bedside Urine (units ( unknown) date) Occult Blood unknown) +++ (unknown) (no (unknown) (unknown) Bedside Urine (units ( unknown) date) Protein ++ 100 unknown) (unknown) (no (unknown) (unknown) Bedside Urine (units ( unknown) date) Urobilinogen - unknown) Negative (unknown) (no (unknown) (unknown) Bedside Urine pH (units (unknown) date) 8.0 unknown) (unknown) (no (unknown) (unknown) Blood Pressure (units (unknown) date) 114/57 L unknown) (unknown) (no (unknown) (unknown) Blood Pressure (units (unknown) date) 129/71 03/21/ unknown) 12:12 (unknown) (no (unknown) (unknown) Blood Pressure (units (unknown) date) 129/71 117/58 L unknown) (unknown) (no (unknown) (unknown) CARDIOVASCULAR: (units (unknown) date) Denies chest pain, unknown) palpitations, orthopnea, edema (unknown) (no (unknown) (unknown) CARDIOVASCULAR: (units (unknown) date) Regular rate and unknown) rhythm without murmurs, rubs or gallops. (unknown) (no (unknown) (unknown) CBC Auto Diff (units ( unknown) date) [Complete Blood unknown) Count AUTO DIFF] Stat (unknown) (no (unknown) (unknown) CMP [Comprehensive (units (unknown) date) Metabolic Panel] unknown) Stat (unknown) (no (unknown) (unknown) CT today was made (units (unknown) date) is you been scanned unknown) with multiple CTs just a couple of days (unknown) (no (unknown) (unknown) Calcium 8.8 (units (unknown) date) (8.4-10.2) mg/dL unknown) (unknown) (no (unknown) (unknown) Carbon Dioxide (units (unknown) date) 26 (22-32) mmol/L unknown) (unknown) (no (unknown) (unknown) Chief complaint: (units (unknown) date) Urogenital-Female unknown) (unknown) (no (unknown) (unknown) Chloride 106 (units (unknown) date) (98-107) mmol/L unknown) (unknown) (no (unknown) (unknown) Clinical (units (unkno wn) date) Impression: unknown) (unknown) (no (unknown) (unknown) Concern for (units (unk nown) date) possible kidney unknown) stone. In the waiting room she had a ?seizure' with (unknown) (no (unknown) (unknown) Course (units (unkno wn) date) unknown) (unknown) (no (unknown) (unknown) Creatinine 0.78 (units (unknown) date) (0.52-1.04) mg/dL unknown) (unknown) (no (unknown) (unknown) : 1995 (units (unknown) date) Acct:[id number] unknown) (unknown) (no (unknown) (unknown) Departure (units (unkn own) date) unknown) (unknown) (no (unknown) (unknown) Discharge Plan (units (unknown) date) unknown) (unknown) (no (unknown) (unknown) Discontinued (units (u nknown) date) Medications unknown) (unknown) (no (unknown) (unknown) ER Physician: (units ( unknown) date) Stephie Escalante D.O. unknown) (unknown) (no (unknown) (unknown) ETOH [Ethanol (units ( unknown) date) (ETOH)] Stat unknown) (unknown) (no (unknown) (unknown) EXTREMITIES: (units (u nknown) date) Normal range of unknown) motion, no clubbing or edema. Neurovascularly (unknown) (no (unknown) (unknown) Endometriosis (units ( unknown) date) unknown) (unknown) (no (unknown) (unknown) Eos # (Auto) 0 (units (unknown) date) (0-450) /uL unknown) (unknown) (no (unknown) (unknown) Eos % (Auto) 0.4 (units (unknown) date) L (2-4) % unknown) (unknown) (no (unknown) (unknown) Esterase (units (unkno wn) date) unknown) (unknown) (no (unknown) (unknown) Estimated GFR > (units (unknown) date) 60 (>60) mL/min unknown) (unknown) (no (unknown) (unknown) Ethyl Alcohol < (units (unknown) date) 10 ( - 10) mg/dL unknown) (unknown) (no (unknown) (unknown) Exam (units (unkno wn) date) unknown) (unknown) (no (unknown) (unknown) Family History (units (unknown) date) (Reviewed 10/19/21 unknown) @ 13:20 by Luann Lamb DO) (unknown) (no (unknown) (unknown) GASTROINTESTINAL: (units (unknown) date) Denies nausea, unknown) vomiting, abdominal pain, diarrhea, (unknown) (no (unknown) (unknown) GENERAL: Alert 27 (units (unknown) date) year old female and unknown) in no acute distress. (unknown) (no (unknown) (unknown) GENERAL: Denies (units (unknown) date) chills, fatigue, unknown) malaise, fever, sweats, travel (unknown) (no (unknown) (unknown) : Mild left CVA (units (unknown) date) tenderness unknown) (unknown) (no (unknown) (unknown) : See HPI (units (u nknown) date) unknown) (unknown) (no (unknown) (unknown) General (units (unkno wn) date) unknown) (unknown) (no (unknown) (unknown) GenericComposite[P (units (unknown) date) lt Count 219 unknown) (150-400) X10^3/uL ] (unknown) (no (unknown) (unknown) GenericComposite[R (units (unknown) date) BC 4.28 unknown) (4.0-5.2) X10^6/uL ] (unknown) (no (unknown) (unknown) GenericComposite[W (units (unknown) date) BC 8.4 unknown) (4.5-11.0) X10^3/uL ] (unknown) (no (unknown) (unknown) Globulin 2.9 (units (unknown) date) (1.7-4.1) g/dL unknown) (unknown) (no (unknown) (unknown) Glucose 106 H (units (unknown) date) (70-100) mg/dL unknown) (unknown) (no (unknown) (unknown) Grandmother (units (un known) date) Ovarian unknown) cancer (unknown) (no (unknown) (unknown) H/O unilateral (units (unknown) date) oophorectomy unknown) () (unknown) (no (unknown) (unknown) H/O: hysterectomy (units (unknown) date) unknown) (unknown) (no (unknown) (unknown) HEENT: Denies (units ( unknown) date) sinus pain, ear unknown) pain, sore throat, difficulty swallowing, neck (unknown) (no (unknown) (unknown) HEENT: Head (units (un known) date) atraumatic,EOMI, unknown) pupils reactive, face symmetric, moist mucous (unknown) (no (unknown) (unknown) HPI - Female (units (u nknown) date) Genitourinary unknown) (unknown) (no (unknown) (unknown) HPI Narrative: (units (unknown) date) unknown) (unknown) (no (unknown) (unknown) Hct 37.5 (units (unk nown) date) (36-46) % unknown) (unknown) (no (unknown) (unknown) Hematuria (units (unkn own) date) unknown) (unknown) (no (unknown) (unknown) Hgb 13.5 (units (unk nown) date) (12.0-16.0) g/dL unknown) (unknown) (no (unknown) (unknown) History of Present (units (unknown) date) Illness unknown) (unknown) (no (unknown) (unknown) History of ureter (units (unknown) date) stent unknown) (unknown) (no (unknown) (unknown) However patient (units (unknown) date) says she did not unknown) see the neurologist the neurologist had a (unknown) (no (unknown) (unknown) IV DYE] (units (unkno wn) date) unknown) (unknown) (no (unknown) (unknown) Ibuprofen 600 mg (units (unknown) date) every 6 hours if unknown) needed for [id number] pain (unknown) (no (unknown) (unknown) Initial Vital (units ( unknown) date) Signs unknown) (unknown) (no (unknown) (unknown) Initial Vital (units ( unknown) date) Signs: unknown) (unknown) (no (unknown) (unknown) Instructions: DI (units (unknown) date) for Urinary Tract unknown) Infection (UTI) (unknown) (no (unknown) (unknown) Iodinated Contrast (units (unknown) date) Media Allergy unknown) Unknown Verified 10/19/21 12:00 (unknown) (no (unknown) (unknown) KUB. Also (units (unk nown) date) discussed with her unknown) about decreasing her Valium. I was up front and (unknown) (no (unknown) (unknown) Ketorolac (units (unkn own) date) Tromethamine unknown) (Ketorolac 30 Mg/Ml Vial) 15 mg IV NOW ONE (unknown) (no (unknown) (unknown) Lab Data (units (unkno wn) date) unknown) (unknown) (no (unknown) (unknown) Labs: (units (unkno wn) date) unknown) (unknown) (no (unknown) (unknown) Lymph # (Auto) (units (unknown) date) 1600 ([id number]) unknown) /uL (unknown) (no (unknown) (unknown) Lymph % (Auto) (units (unknown) date) 19.7 L (25-40) % unknown) (unknown) (no (unknown) (unknown) MCH 31.6 (units (unk nown) date) (26-34) PG unknown) (unknown) (no (unknown) (unknown) MCHC 36.0 (units (un known) date) (30-36) % unknown) (unknown) (no (unknown) (unknown) MCV 87.7 (units (unk nown) date) (80-100) fL unknown) (unknown) (no (unknown) (unknown) MDM - Female (units (u nknown) date) Genitourinary unknown) (unknown) (no (unknown) (unknown) MDM Narrative (units ( unknown) date) unknown) (unknown) (no (unknown) (unknown) MUSCULOSKELETAL: (units (unknown) date) Denies weakness, unknown) joint pain, or bony pain (unknown) (no (unknown) (unknown) Macrobid 100 mg (units (unknown) date) twice a day for 5 unknown) days--> sent to [facility] in [place] (unknown) (no (unknown) (unknown) Major depressive (units (unknown) date) disorder unknown) (unknown) (no (unknown) (unknown) Medical History (units (unknown) date) (Updated 03/21/22 @ unknown) 15:59 by Stephie Escalante DO) (unknown) (no (unknown) (unknown) Medical decision (units (unknown) date) making narrative: unknown) (unknown) (no (unknown) (unknown) Mode of arrival: (units (unknown) date) Ambulatory unknown) (unknown) (no (unknown) (unknown) [place] # (Auto) (units ( unknown) date) 700 (0-900) /uL unknown) (unknown) (no (unknown) (unknown) [place] % (Auto) (units ( unknown) date) 8.6 (3-14) % unknown) (unknown) (no (unknown) (unknown) Morbid obesity (units (unknown) date) unknown) (unknown) (no (unknown) (unknown) Mother BRCA (units ( unknown) date) positive unknown) (unknown) (no (unknown) (unknown) NEUROLOGIC: See (units (unknown) date) HPI unknown) (unknown) (no (unknown) (unknown) NEUROLOGICAL: (units ( unknown) date) Alert and oriented unknown) x4. (unknown) (no (unknown) (unknown) Narrative: (units (unk nown) date) unknown) (unknown) (no (unknown) (unknown) Nephrolithiasis (units (unknown) date) (-2018) unknown) (unknown) (no (unknown) (unknown) Neut # (Auto) (units ( unknown) date) 5900 (5317-5248) unknown) /uL (unknown) (no (unknown) (unknown) Neut % (Auto) (units ( unknown) date) 71.1 (50-75) % unknown) (unknown) (no (unknown) (unknown) New (units (unkno wn) date) unknown) (unknown) (no (unknown) (unknown) No Action (units (unkn own) date) unknown) (unknown) (no (unknown) (unknown) Ordered: (units (unkno wn) date) unknown) (unknown) (no (unknown) (unknown) Orders (units (unkno wn) date) unknown) (unknown) (no (unknown) (unknown) Ovarian cyst (units (u nknown) date) unknown) (unknown) (no (unknown) (unknown) Oxygen Delivery (units (unknown) date) Method unknown) (unknown) (no (unknown) (unknown) Oxygen Delivery (units (unknown) date) Method 03/21/22 unknown) 12:12 (unknown) (no (unknown) (unknown) Oxygen Delivery (units (unknown) date) Method Room Air unknown) (unknown) (no (unknown) (unknown) PCOS (polycystic (units (unknown) date) ovarian syndrome) unknown) (unknown) (no (unknown) (unknown) PSYCHIATRIC: No (units (unknown) date) concerning unknown) psychosocial issues. (unknown) (no (unknown) (unknown) Patellar (units (unkno wn) date) dislocation unknown) (unknown) (no (unknown) (unknown) Patient (units (unkno wn) date) Disposition: Home unknown) (unknown) (no (unknown) (unknown) Patient History (units (unknown) date) unknown) (unknown) (no (unknown) (unknown) Patient is a (units (u nknown) date) 27-year-old female unknown) with well documented pseudoseizures at a (unknown) (no (unknown) (unknown) Patient is here (units (unknown) date) today with unknown) left-sided flank pain concern for possible kidney (unknown) (no (unknown) (unknown) Patient: (units (unkno wn) date) Eileen Jorgensen unknown) M MR# (unknown) (no (unknown) (unknown) Pelvic congestion (units (unknown) date) (2013) unknown) (unknown) (no (unknown) (unknown) Penicillins (units (un known) date) [PENICILLINS] unknown) Allergy Mild Verified 10/19/21 12:00 (unknown) (no (unknown) (unknown) Potassium 4.2 (units (unknown) date) (3.4-5.1) mmol/L unknown) (unknown) (no (unknown) (unknown) Prescriptions: (units (unknown) date) unknown) (unknown) (no (unknown) (unknown) Prolactin 27.0 (units (unknown) date) H (3.0-18.6) unknown) ng/mL (unknown) (no (unknown) (unknown) Prolactin Stat (units (unknown) date) unknown) (unknown) (no (unknown) (unknown) 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 (unknown) (no (unknown) (unknown) Pulse Oximetry (units (unknown) date) 100 03/21/22 unknown) 12:12 (unknown) (no (unknown) (unknown) Pulse Oximetry 100 (units (unknown) date) 100 unknown) (unknown) (no (unknown) (unknown) Pulse Rate 95 H (units (unknown) date) 03/21/22 12:12 unknown) (unknown) (no (unknown) (unknown) Pulse Rate 78 72 (units (unknown) date) unknown) (unknown) (no (unknown) (unknown) Pulse Rate 95 H 81 (units (unknown) date) unknown) (unknown) (no (unknown) (unknown) RDW 13.1 (units (unk nown) date) (11.6-14.8) % unknown) (unknown) (no (unknown) (unknown) RESPIRATORY: (units (u nknown) date) Breath sounds equal unknown) bilaterally, no wheezes rales or rhonchi. (unknown) (no (unknown) (unknown) RESPIRATORY: (units (u nknown) date) Denies dyspnea, unknown) cough, wheezing, hemoptysis, sputum. (unknown) (no (unknown) (unknown) RESPONSE (units (unkno wn) date) unknown) (unknown) (no (unknown) (unknown) Recommend weaning (units (unknown) date) in decreasing the unknown) Valium that you have left see do not have (unknown) (no (unknown) (unknown) Related Data (units (u nknown) date) unknown) (unknown) (no (unknown) (unknown) Respiratory Rate (units (unknown) date) unknown) (unknown) (no (unknown) (unknown) Respiratory Rate (units (unknown) date) 22 03/21/22 12:12 unknown) (unknown) (no (unknown) (unknown) Respiratory Rate (units (unknown) date) 22 unknown) (unknown) (no (unknown) (unknown) Result diagrams: (units (unknown) date) unknown) (unknown) (no (unknown) (unknown) Review of Systems (units (unknown) date) unknown) (unknown) (no (unknown) (unknown) SKIN: No rash, no (units (unknown) date) erythema, no unknown) pruritus (unknown) (no (unknown) (unknown) SKIN: Warm, dry, (units (unknown) date) no laceration, no unknown) petechiae, no rashes or lesions. (unknown) (no (unknown) (unknown) Signed By: (units (unk nown) date) unknown) (unknown) (no (unknown) (unknown) Sodium 140 (units ( unknown) date) (137-145) mmol/L unknown) (unknown) (no (unknown) (unknown) Sodium Chloride (units (unknown) date) (Normal Saline unknown) 0.9%) 1,000 mls @ 1,000 mls/hr IV BOLUS ONE (unknown) (no (unknown) (unknown) Source: patient (units (unknown) date) unknown) (unknown) (no (unknown) (unknown) Stated complaint: (units (unknown) date) Lower left back unknown) pain (unknown) (no (unknown) (unknown) Status post (units [...] and unknown) adenoidectomy (unknown) (no (unknown) (unknown) Substance Use (units ( unknown) date) Type: does not use unknown) (unknown) (no (unknown) (unknown) Surgical History (units (unknown) date) (Reviewed 11/02/21 unknown) @ 12:04 by Amaris Scott MD) (unknown) (no (unknown) (unknown) Temperature (units (un known) date) unknown) (unknown) (no (unknown) (unknown) Temperature 97.3 (units (unknown) date) F L 03/21/22 12:12 unknown) (unknown) (no (unknown) (unknown) Temperature 97.3 F (units (unknown) date) L unknown) (unknown) (no (unknown) (unknown) Time Seen by (units (u nknown) date) Provider: 03/21/22 unknown) 13:54 (unknown) (no (unknown) (unknown) Total Bilirubin (units (unknown) date) 0.3 (0.2-1.3) unknown) mg/dL (unknown) (no (unknown) (unknown) Total Protein (units ( unknown) date) 7.0 (6.3-8.2) unknown) g/dL (unknown) (no (unknown) (unknown) Tylenol 1000 mg (units (unknown) date) every 6 hours if unknown) needed for [id number] pain (unknown) (no (unknown) (unknown) Ur Culture (units (unk nown) date) Indicated? Cult unknown) not indicated (unknown) (no (unknown) (unknown) Ur Squamous Epith (units (unknown) date) Cells >30 /hpf H unknown) (0-5/HPF) (unknown) (no (unknown) (unknown) Urine Bacteria (units (unknown) date) Moderate (10-30) H unknown) (None) (unknown) (no (unknown) (unknown) Urine Microscopic (units (unknown) date) Stat unknown) (unknown) (no (unknown) (unknown) Urine Mucus 1+ H (units (unknown) date) (Negative) unknown) (unknown) (no (unknown) (unknown) Urine RBC (units (unkn own) date) >100/hpf H unknown) (0-5/HPF) (unknown) (no (unknown) (unknown) Urine Specific (units (unknown) date) [place] 1.010 unknown) (unknown) (no (unknown) (unknown) Urine WBC (units (unkn own) date) 5-10/hpf H unknown) (0-5/HPF) (unknown) (no (unknown) (unknown) Valium 1 tablet (units (unknown) date) twice daily for 3 unknown) days then 1 tablet once daily for 3 days and (unknown) (no (unknown) (unknown) Visit Report (units (u nknown) date) Forms: Patient unknown) Portal/API (unknown) (no (unknown) (unknown) Vital Signs (units (un known) date) unknown) (unknown) (no (unknown) (unknown) Vital signs: (units (u nknown) date) unknown) (unknown) (no (unknown) (unknown) [Embedded Image (units (unknown) date) Not Available] unknown) (unknown) (no (unknown) (unknown) [From BACTRIM] (units (unknown) date) unknown) (unknown) (no (unknown) (unknown) [IODINATED (units (unk nown) date) CONTRAST MEDIA - unknown) (unknown) (no (unknown) (unknown) [METOCLOPRAMIDE] (units (unknown) date) unknown) (unknown) (no (unknown) (unknown) [PROCHLORPERAZINE] (units (unknown) date) unknown) (unknown) (no (unknown) (unknown) [SHELLFISH (units (unk nown) date) DERIVED] unknown) (unknown) (no (unknown) (unknown) acetaminophen (units ( unknown) date) [From Vicodin] unknown) AdvReac Rash Verified 10/19/21 13:35 (unknown) (no (unknown) (unknown) adhesive (units (unkno wn) date) [ADHESIVE] Allergy unknown) Mild Verified 10/19/21 12:00 (unknown) (no (unknown) (unknown) ago. If her pain (units (unknown) date) worsens or unknown) continues or you do not passed a kidney stone he (unknown) (no (unknown) (unknown) alcohol intake (units (unknown) date) frequency: unknown) holidays/special occasions only (unknown) (no (unknown) (unknown) amoxicillin (units (un known) date) [AMOXICILLIN] unknown) Allergy Mild Verified 10/19/21 12:00 (unknown) (no (unknown) (unknown) appropriate time (units (unknown) date) to go to 2 a day. unknown) She states her neurologist had a family (unknown) (no (unknown) (unknown) blood work is (units ( unknown) date) overall reassuring. unknown) (unknown) (no (unknown) (unknown) brought back to a (units (unknown) date) room. unknown) (unknown) (no (unknown) (unknown) capsule (Macrobid) (units (unknown) date) unknown) (unknown) (no (unknown) (unknown) cephalexin (units (unk nown) date) [CEPHALEXIN] unknown) Allergy Unknown Verified 10/19/21 12:00 (unknown) (no (unknown) (unknown) ciprofloxacin (units ( unknown) date) [CIPROFLOXACIN] unknown) Allergy Unknown Verified 10/19/21 12:00 (unknown) (no (unknown) (unknown) clindamycin (units (un known) date) [CLINDAMYCIN] unknown) Allergy Unknown Verified 10/19/21 12:00 (unknown) (no (unknown) (unknown) concerning (units (unk nown) date) symptoms unknown) (unknown) (no (unknown) (unknown) constipation, (units ( unknown) date) melena. unknown) (unknown) (no (unknown) (unknown) daily lead target (units (unknown) date) mg tablets 4 times unknown) a day. There was an egg agreeance with the (unknown) (no (unknown) (unknown) diazepam 10 mg (units (unknown) date) tablet 10 mg PO QID unknown) #120 tabs 10/12/21 (unknown) (no (unknown) (unknown) diazepam 5 mg (units ( unknown) date) tablet (Valium) 5 unknown) mg PO TID PRN muscle spasm #10 10/19/21 (unknown) (no (unknown) (unknown) discussed plan with (units (unknown) date) her on how to wean unknown) the Valium and get her off. She says for (unknown) (no (unknown) (unknown) doxycycline (units (un known) date) [DOXYCYCLINE] unknown) Allergy Mild Verified 10/19/21 12:00 (unknown) (no (unknown) (unknown) emergency yesterday (units (unknown) date) and she did not get unknown) to see the doctor and it was rescheduled (unknown) (no (unknown) (unknown) epinephrine 0.3 (units (unknown) date) mg/0.3 mL See Rx unknown) Instructions .Route 02/27/22 (unknown) (no (unknown) (unknown) eye fluttering. (units (unknown) date) It lasted briefly unknown) there was no postictal. She was promptly (unknown) (no (unknown) (unknown) family emergency (units (unknown) date) and now she has an unknown) appointment on 7. She is not on anti (unknown) (no (unknown) (unknown) fell in something (units (unknown) date) landed on her. unknown) Today she is here for left flank pain. (unknown) (no (unknown) (unknown) given to her for (units (unknown) date) 40 tablets. She unknown) was supposed to see a neurologist yesterday. (unknown) (no (unknown) (unknown) guarding or (units (un known) date) rebound. unknown) (unknown) (no (unknown) (unknown) half a tablet for (units (unknown) date) 3 days and stop unknown) (unknown) (no (unknown) (unknown) hydrocodone (units (un known) date) Allergy Mild rash unknown) Verified 10/19/21 12:00 (unknown) (no (unknown) (unknown) injection, (units (unk nown) date) auto-injector unknown) .COMPLEX #2 ea (unknown) (no (unknown) (unknown) intact (units (unkno wn) date) unknown) (unknown) (no (unknown) (unknown) iodine [IODINE] (units (unknown) date) Allergy Mild unknown) Verified 10/19/21 12:00 (unknown) (no (unknown) (unknown) lamotrigine 200 mg (units (unknown) date) tablet 200 mg PO unknown) DAILY #30 tabs 01/18/22 (unknown) (no (unknown) (unknown) latex [LATEX] (units ( unknown) date) Allergy Unknown unknown) Verified 10/19/21 12:00 (unknown) (no (unknown) (unknown) lidocaine AdvReac (units (unknown) date) Palpitation unknown) Verified 10/19/21 12:00 (unknown) (no (unknown) (unknown) may return were (units (unknown) date) possible CT unknown) (unknown) (no (unknown) (unknown) membranes (units (unkn own) date) unknown) (unknown) (no (unknown) (unknown) metformin 500 mg (units (unknown) date) tablet 500 mg PO unknown) BID #60 tabs 02/21/22 (unknown) (no (unknown) (unknown) metoclopramide (units (unknown) date) Allergy Mild unknown) Verified 10/19/21 12:00 (unknown) (no (unknown) (unknown) mildly infected (units (unknown) date) will start her on unknown) antibiotics to see if it improves her (unknown) (no (unknown) (unknown) monohydrate/macroc (units (unknown) date) rystals 100 mg unknown) (unknown) (no (unknown) (unknown) neighboring (units (unk nown) date) facility where she unknown) has had 3 visits this month already for seizures. (unknown) (no (unknown) (unknown) nitrofurantoin 100 (units (unknown) date) mg PO Q12H 5 days unknown) #10 caps 03/21/22 (unknown) (no (unknown) (unknown) pain (units (unkno wn) date) unknown) (unknown) (no (unknown) (unknown) physician mother (units (unknown) date) and patient to try unknown) and taper her down. A prescription was (unknown) (no (unknown) (unknown) prochlorperazine (units (unknown) date) Allergy Mild unknown) Verified 10/19/21 12:00 (unknown) (no (unknown) (unknown) quetiapine 100 mg (units (unknown) date) tablet 100 mg PO unknown) BEDTIME 02/27/22 02/27/22 (unknown) (no (unknown) (unknown) quetiapine 25 mg (units (unknown) date) tablet See Rx unknown) Instructions PO BEDTIME #45 01/18/22 (unknown) (no (unknown) (unknown) said that I would (units (unknown) date) not be filling her unknown) Valium medication today. She just received (unknown) (no (unknown) (unknown) seizure (units (unkno wn) date) medications. She unknown) actually had multiple CTs done on the he has she (unknown) (no (unknown) (unknown) sertraline 100 mg (units (unknown) date) tablet 200 mg PO unknown) DAILY #60 tabs 01/18/22 (unknown) (no (unknown) (unknown) shellfish derived (units (unknown) date) Allergy Severe unknown) ANAPHYLAXIS Verified 10/19/21 12:00 (unknown) (no (unknown) (unknown) stone. She just (units (unknown) date) had multiple CTs a unknown) couple days ago. Urine does appear to be (unknown) (no (unknown) (unknown) sulfamethoxazole (units (unknown) date) Allergy Mild RASH unknown) Verified 10/19/21 12:00 (unknown) (no (unknown) (unknown) symptoms. I (units (u nknown) date) discussed this with unknown) her if her pain continues then return for a CT (unknown) (no (unknown) (unknown) tramadol 50 mg (units (unknown) date) tablet 100 mg PO unknown) BID PRN pain #120 tabs 02/05/22 (unknown) (no (unknown) (unknown) trazodone 100 mg (units (unknown) date) tablet See Rx unknown) Instructions .Route 11/20/21 (unknown) (no (unknown) (unknown) trimethoprim [From (units (unknown) date) BACTRIM] Allergy unknown) Mild RASH Verified 10/19/21 12:00 (unknown) (no (unknown) (unknown) withdrawal seizure (units (unknown) date) unknown) (unknown) (no (unknown) (unknown) would likely cause (units (unknown) date) a true seizure. unknown) She understands this. But this time her Social History date description facility (no date) [facility] smoked tobacco [facility] Vital Signs date measurement value units +0000 BMI BMI 33.75 kg/m2 76971874029405+0000 BP_diastolic BP_diastolic 82 mm[H g] 74272502537756+0000 BP_systolic BP_systolic 121 mm[Hg] +0000 heart_rate heart_rate 80 /min +0000 height_metric height_metric 154.94 cm 62958757724303+0000 height_standard height_standard 61 in +0000 respiration_rate respiration_rate 16 /min 50440741075342+0000 temperature_metric temperature_metric 36.44 C [id number]+0000 temperature_standard temperature_standard 9 7.6 F 47753426671301+0000 weight_metric weight_metric 80.74 kg 03915600869684+0000 weight_standard weight_standard 178 lb 31856939032773+0000 BMI BMI 33.75 kg/m2 17643885338670+0000 BP_diastolic BP_diastolic 72 mm[H g] 25507557276050+0000 BP_systolic BP_systolic 124 mm[Hg] 22429575457788+0000 heart_rate heart_rate 74 /min 44003470841034+0000 height_metric height_metric 154.94 cm 78524076561149+0000 height_standard height_standard 61 in +0000 respiration_rate respiration_rate 16 /min 77610358344979+0000 temperature_metric temperature_metric 36.39 C 81677081722765+0000 temperature_standard temperature_standard 9 7.5 F 70723791057952+0000 weight_metric weight_metric 80.74 kg 26531869285352+0000 weight_standard weight_standard 178 lb 45162399685377+0000 BP_diastolic BP_diastolic 72 mm[H g] 70025367685085+0000 BP_systolic BP_systolic 124 mm[Hg] 03761841034668+0000 temperature_metric temperature_metric 36.39 C 05349287195018+0000 temperature_standard temperature_standard 9 7.5 F 46336942312830+0000 BMI BMI 35.65 kg/m2 43491597465726+0000 heart_rate heart_rate 75 /min 17357344716624+0000 height_metric height_metric 154.94 cm 85183782944208+0000 height_standard height_standard 61 in 40355109287863+0000 respiration_rate respiration_rate 12 /min 41473996780498+0000 weight_metric weight_metric 85.28 kg 57988442942170+0000 weight_standard weight_standard 188 lb
[2022-04-04] MEDS ORDERED: KETOROLAC 30 MG/ML VIAL IVP STA (20:00)
[2022-04-04] MEDS ORDERED: MORPHINE 2 MG/ML CARPUJECT IVP STA (20:00)
--- NOTE | 2022-04-04 22:06 | ED Physician Documentation ---
History of Present Illness - Stated complaint Stated Complaint: SZ, FELL, RIGHT ARM AND RIB PAIN - Chief complaint Chief Complaint: Neuro - History obtained from History obtained from: Patient - History of Present Illness Timing: Today Pain level max: 8 Pain level now: 8 - Additonal information Additional information: Patient is a 27-year-old female with a history of seizures versus pseudoseizures. She states that she had a seizure today and when she woke up there was her son's wooden toy kitchen on her right upper chest. Complains of pain to the right arm and right ribs. Worse with movement, better with rest. No difficulty breathing. No fevers. No chills. No cough. No congestion. No head injury. No neck or back pain. Review of Systems Constitutional: denies: Fever, Chills Throat: denies: Sore throat Cardiac: denies: Chest pain / pressure, Palpitations Respiratory: denies: Cough GI: denies: Nausea, Vomiting, Diarrhea : denies: Now EGA Skin: denies: Rash Musculoskeletal: denies: Neck pain, Back pain Neurologic: denies: Headache PD PAST MEDICAL HISTORY - Past Medical History Past Medical History: Yes Neuro: Seizure disorder, Other NUCLEAR MEDICINE TECH: Ovarian cysts : Kidney stones Psych: Post traumatic stress disorder - Past Surgical History Past Surgical History: Yes General: Appendectomy /NUCLEAR MEDICINE TECH: Hysterectomy, Oophrectomy - Present Medications Home Medications: Ambulatory Orders Medication Instructions Recorded Confirmed Diazepam [Valium] 10 mg PO QID 12/30/20 02/26/22 Sertraline HCl 200 mg PO DAILY 12/30/20 02/26/22 traMADol [Ultram] 100 mg PO BID 12/30/20 02/26/22 QUEtiapine [SEROquel] 1 tab PO DAILY 02/27/21 02/26/22 lamoTRIgine [LaMICtal] 200 mg PO DAILY 02/27/21 02/26/22 metFORMIN [Glucophage] 1 tab PO BID 02/27/21 02/26/22 haloperidoL [Haldol] 0.5 mg PO BID PRN #20 tablet 07/28/21 02/26/22 Diazepam [Valium] 10 mg PO QID #60 tablet 02/26/22 haloperidoL [Haldol] 0.5 mg PO BID PRN #20 tablet 02/26/22 Diazepam [Valium] 10 mg PO TID #40 tablet 03/08/22 Tramadol HCl [Ultram] 50 mg PO QID PRN #40 tablet 03/08/22 - Allergies Allergies/Adverse Reactions: Allergies Allergy/AdvReac Type Severity Reaction Status Date / Time adhesive Allergy Rash Verified 04/04/22 19:23 Cephalosporins Allergy Hives Verified 04/04/22 19:23 Iodinated Contrast Media Allergy Anaphylaxis Verified 04/04/22 19:23 latex Allergy Rash Verified 04/04/22 19:23 lidocaine Allergy Unknown Verified 04/04/22 19:23 metoclopramide [From Reglan] Allergy Anaphylaxis Verified 04/04/22 19:23 Penicillins Allergy Hives Verified 04/04/22 19:23 prochlorperazine Allergy Anaphylaxis Verified 04/04/22 19:23 [From Compazine] all antibiotic except Allergy Anaphylaxis Uncoded 04/04/22 19:23 levaquin - Social History Does the pt smoke?: No Smoking Status: Never smoker Does the pt drink ETOH?: No Does the pt have substance abuse?: No - Immunizations Immunizations are current?: Yes PD ED PE NORMAL - Vitals Vital signs reviewed: Yes - General General: Alert and oriented X 3, No acute distress, Well developed/nourished - HEENT HEENT: PERRL, Moist mucous membranes - Neck Neck: Supple, no meningeal sign - Cardiac Cardiac: RRR, Strong equal pulses - Respiratory Respiratory: No respiratory distress, Clear bilaterally - Abdomen Abdomen: Soft, Non tender, Non distended - Back Back: No spinal TTP - Derm Derm: Warm and dry - Extremities Extremities: No edema, Other (Tender to palpation along the right upper humerus. No deformity. No tenderness about the glenohumeral joint. No clavicle tenderness. Neurovascular intact. Otherwise normal exam of the arm. Limited range of motion secondary to pain) - Neuro Neuro: Alert and oriented X 3 - Psych Psych: Normal mood, Normal affect - Free text exam Free text exam: Tender palpation over the right anterior lower ribs. No crepitus. No ecchymosis. Results - Vitals Vitals: Vital Signs - 24 hr 04/04/22 04/04/22 04/04/22 19:19 20:05 20:34 Temperature 37.2 C Heart Rate 78 77 63 Respiratory 14 16 15 Rate Blood Pressure 116/57 L 115/67 108/49 L O2 Saturation 100 100 100 04/04/22 04/04/22 21:21 21:53 Temperature Heart Rate 70 73 Respiratory 16 18 Rate Blood Pressure 113/60 104/53 L O2 Saturation 100 100 Oxygen O2 Source Room air - Rads (name of study) Right humerus x-ray Radiology: Final report received, EMP read contemporaneously, See rad report Right ribs with chest x-ray Radiology: Final report received, EMP read contemporaneously, See rad report PD MEDICAL DECISION MAKING - ED course Complexity details: considered differential, d/w patient ED course: Patient is a 27-year-old female who presents to the emergency department after a seizure versus pseudoseizure today. She is having pain to the right upper extremity and right ribs. X-rays performed. Pain medication given. Patient will be signed out to the oncoming emergency department physician awaiting radiology reads and pain control. This document was made in part using voice recognition software. While efforts are made to proofread this document, sound alike and grammatical errors may occur. Departure - Departure Clinical Impression: Rib pain, Arm pain, right Condition: Stable
[2022-04-04] MEDS ORDERED: oxyCODONE 5 MG TABLET PO STA (22:08)
--- NOTE | 2022-04-04 22:20 | XRAY Report ---
PROCEDURE: Humerus RT INDICATIONS: R arm pain s/p seizure TECHNIQUE: 2 views of the humerus were acquired. COMPARISON: None. FINDINGS: Bones: No fractures or dislocations. No suspicious bony lesions. Soft tissues: No suspicious soft tissue calcifications. IMPRESSION: 1. No fracture or dislocation. Reviewed by: Lester Brewer MD on 04/04/2022 10:19 PM PDT Approved by: Lester Brewer MD on 04/04/2022 10:19 PM PDT Station ID: [id number]
--- NOTE | 2022-04-04 22:22 | XRAY Report ---
PROCEDURE: Ribs w/PA Chest RT INDICATIONS: R rib pain s/p seizure TECHNIQUE: 4 views of the right ribs were acquired, along with a single view chest. COMPARISON: None. FINDINGS: Surgical changes and devices: None. Bones and chest wall: No displaced rib fracture identified. No suspicious bony lesions. Overlying s oft tissues appear unremarkable. Lungs and pleura: No pleural effusions or pneumothorax. Lungs appear clear. Mediastinum: Mediastinal contours appear normal. Heart size is normal. IMPRESSION: 1. No displaced rib fracture identified. Reviewed by: Lester Brewer MD on 04/04/2022 10:20 PM PDT Approved by: Lester Brewer MD on 04/04/2022 10:20 PM PDT Station ID: [id number]
--- NOTE | 2022-04-04 22:38 | ED Physician Documentation ---
ED Addendum - Addendum Addendum: 04/04/22 22:37 Received sign out from Dr. Perez at end of his shift Xrays (humerus, chest with ribs) are unremarkable; no evidence of acute injury. I discussed these results with patient. She is AAOx3 and requests pain medication for next few days and I explained that I will send rx for tramadol to [facility] pharmacy in [place]. I am prescribing a short course of short-acting opioid pain medication for this patient. 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 I have discussed that the opioids are for short term therapy only, and will not be refilled from the ED
[2022-04-04 22:43] VITALS: BP 104/48
== END 2022-04-04 22:46 | disposition home or self-care (01) ==
LOC: EDUNIT# → ED 19:08
DX: R07.81 Pleurodynia (principal); M79.601 Pain in right arm
CPT/HCPCS: 71101; 73060; 96374; 96375; 99282; 99284; A9270

== ENCOUNTER 2022-04-22 13:59 | Outpatient (CLI) | payer MEDICAID | END 2022-04-22 14:00 | disposition short-term general hospital (02) | LOC: EMS 13:59 | DX: S49.91XA Unspecified injury of right shoulder and upper arm, initial encounter (principal); R47.81 Slurred speech; R51.9 Headache, unspecified; M25.551 Pain in right hip; R56.9 Unspecified convulsions; W10.8XXA Fall (on) (from) other stairs and steps, initial encounter; Y92.008 Other place in unspecified non-institutional (private) residence as the place of occurrence of the external cause | CPT/HCPCS: A0425; A0427; A0999 ==

== ENCOUNTER 2022-05-05 15:16 | Outpatient (CLI) | payer MEDICAID | END 2022-05-05 15:17 | disposition short-term general hospital (02) | LOC: EMS 15:16 | DX: S79.921A Unspecified injury of right thigh, initial encounter (principal); S49.91XA Unspecified injury of right shoulder and upper arm, initial encounter; R20.2 Paresthesia of skin; R10.31 Right lower quadrant pain; R51.9 Headache, unspecified; R40.4 Transient alteration of awareness; W20.8XXA Other cause of strike by thrown, projected or falling object, initial encounter; Y92.000 Kitchen of unspecified non-institutional (private) residence as the place of occurrence of the external cause | CPT/HCPCS: A0425; A0427; A0999 ==

== ENCOUNTER 2022-05-21 15:14 | Outpatient (CLI) | payer MEDICAID | END 2022-05-21 15:15 | disposition critical access hospital (66) | LOC: EMS 15:14 | DX: K92.0 Hematemesis (principal); R10.11 Right upper quadrant pain | CPT/HCPCS: A0425; A0427; A0999 ==

== ENCOUNTER 2022-05-21 15:36 | Emergency (ER) | payer MEDICAID ==
[2022-05-21] MEDS ORDERED: ONDANSETRON 4 MG/2 ML VIAL IVP STA (15:40)
[2022-05-21] MEDS ORDERED: SODIUM CHLORIDE 0.9% 1,000 ML IV STA (15:40)
[2022-05-21] MEDS ORDERED: PANTOPRAZOLE 40 MG VIAL IVP STA (15:40)
[2022-05-21] MEDS ORDERED: HYDROmorphone 1 MG/ML CARPUJECT IVP STA ×2 (15:40→17:49)
--- NOTE | 2022-05-21 15:41 | ED Physician Documentation ---
PD HPI ABD PAIN - Stated complaint Stated Complaint: ABD PX - History obtained from History obtained from: Patient - Additional information Additional information: 27-year-old with history of pseudoseizures, hysterectomy and oophorectomy and exploratory laparoscopies has been developing right upper quadrant pain for the last few weeks and has been diagnosed with gallstones. Has an appointment with a surgeon in a few days but over the last 24 hours has developed more severe right upper quadrant pain and now has blood in her vomit and blood mixed in her stool. She has no history of peptic ulcer disease or gastritis. 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: Hysterectomy, Oophrectomy - Present Medications Home Medications: Ambulatory Orders Medication Instructions Recorded Confirmed Diazepam [Valium] 10 mg PO QID 12/30/20 02/26/22 Sertraline HCl 200 mg PO DAILY 12/30/20 02/26/22 traMADol [Ultram] 100 mg PO BID 12/30/20 02/26/22 QUEtiapine [SEROquel] 1 tab PO DAILY 02/27/21 02/26/22 lamoTRIgine [LaMICtal] 200 mg PO DAILY 02/27/21 02/26/22 metFORMIN [Glucophage] 1 tab PO BID 02/27/21 02/26/22 haloperidoL [Haldol] 0.5 mg PO BID PRN #20 tablet 07/28/21 02/26/22 Diazepam [Valium] 10 mg PO QID #60 tablet 02/26/22 haloperidoL [Haldol] 0.5 mg PO BID PRN #20 tablet 02/26/22 Diazepam [Valium] 10 mg PO TID #40 tablet 03/08/22 Tramadol HCl [Ultram] 50 mg PO QID PRN #40 tablet 03/08/22 traMADol [Ultram] 100 mg PO Q6H PRN #14 tablet 04/04/22 HYDROmorphone [Dilaudid] 1 - 2 tab PO Q4H PRN #15 tablet 05/21/22 Omeprazole 40 mg PO DAILY #30 cap 05/21/22 - Allergies Allergies/Adverse Reactions: Allergies Allergy/AdvReac Type Severity Reaction Status Date / Time adhesive Allergy Rash Verified 05/21/22 15:46 Cephalosporins Allergy Hives Verified 05/21/22 15:46 Iodinated Contrast Media Allergy Anaphylaxis Verified 05/21/22 15:46 latex Allergy Rash Verified 05/21/22 15:46 lidocaine Allergy Unknown Verified 05/21/22 15:46 metoclopramide [From Reglan] Allergy Anaphylaxis Verified 05/21/22 15:46 Penicillins Allergy Hives Verified 05/21/22 15:46 prochlorperazine Allergy Anaphylaxis Verified 05/21/22 15:46 [From Compazine] all antibiotic except Allergy Anaphylaxis Uncoded 05/21/22 15:46 levaquin - Social History Does the pt smoke?: No Smoking Status: Never smoker Does the pt drink ETOH?: No Does the pt have substance abuse?: No - Immunizations Immunizations are current?: Yes PD ED PE NORMAL - Vitals Vital signs reviewed: Yes - General General: Alert and oriented X 3, No acute distress - HEENT HEENT: PERRL, EOMI - Neck Neck: Supple, no meningeal sign, No bony TTP - Cardiac Cardiac: RRR, No murmur - Respiratory Respiratory: No respiratory distress, Clear bilaterally - Abdomen Abdomen: Other (Very tender in the right upper quadrant without surgical signs.) - Back Back: No CVA TTP, No spinal TTP - Derm Derm: Normal color, Warm and dry - Extremities Extremities: No edema, No calf tenderness / cord - Neuro Neuro: Alert and oriented X 3, Normal speech Results - Vitals Vitals: Vital Signs - 24 hr 05/21/22 05/21/22 05/21/22 15:40 15:46 17:46 Temperature 36.5 C 36.5 C Heart Rate 79 79 90 Respiratory 18 18 21 Rate Blood Pressure 136/74 H 134/74 H 130/90 H O2 Saturation 98 98 96 05/21/22 19:00 Temperature Heart Rate 96 Respiratory 16 Rate Blood Pressure 119/67 O2 Saturation 98 Oxygen O2 Source Room air - Labs Labs: Laboratory Tests 05/21/22 05/21/22 15:42 15:42 WBC 6.4 RBC 3.95 L Hgb 12.2 Hct 34.7 L MCV 87.8 MCH 30.9 MCHC 35.2 RDW 12.1 Plt Count 216 MPV 9.5 Neut # (Auto) 2.8 Lymph # (Auto) 2.8 [place] # (Auto) 0.6 Eos # (Auto) 0.1 Baso # (Auto) 0.0 Absolute Nucleated RBC 0.00 Nucleated RBC % 0.0 Sodium 135 Potassium 4.0 Chloride 102 Carbon Dioxide 25 Anion Gap 8.0 BUN 15 Creatinine 0.8 Estimated GFR (MDRD) 85 L Glucose 93 Calcium 8.8 Total Bilirubin 0.6 AST 12 ALT 14 Alkaline Phosphatase 42 Total Protein 6.4 L Albumin 3.8 Globulin 2.6 Albumin/Globulin Ratio 1.5 Lipase 45 PD MEDICAL DECISION MAKING - ED course ED course: 27-year-old woman with recent diagnosis of gallstones and a long history of pseudoseizures presents with right upper quadrant pain but now associated with hematemesis and hematochezia. Her vital signs and blood counts are unremarkable. Liver enzymes normal. Ultrasound showing gallstones but no other signs of cholecystitis. She had mild improvement with the administration of Toradol and Dilaudid here, but given the hematemesis the consideration of peptic ulcer disease or gastritis is there so we discussed a GI cocktail which she did want to go ahead and try. She had a previously listed allergy to lidocaine but states this was only with IV formulations. Subsequent to the administration of the GI cocktail she felt like she was having an allergic reaction. On her reexamination at that time at approximately 5:50 PM she was noted to have normal phonation, no rash, no visible angioedema of the face or oropharynx. Out of an abundance of caution she was administered IM epi and IV Benadryl. Subsequently those symptoms got better as did her abdominal pain. Although it did not go away completely she was comfortable with discharge and has an appropriate to follow-up with a surgeon in 2 days. Departure - Departure Disposition: 01 Home, Self Care Clinical Impression: Abdominal pain Qualifiers: Abdominal location: right upper quadrant Qualified Code(s): R10.11 - Right upper quadrant pain Condition: Good Record reviewed to determine appropriate education?: Yes Instructions: ED Abdominal Pain Female Non-Specific Abdominal Pain Prescriptions: HYDROmorphone [Dilaudid] 1 - 2 tab PO Q4H PRN #15 tablet PRN Reason: Pain Omeprazole 40 mg PO DAILY #30 cap Comments: You are seen here today for right upper quadrant pain but also had some hematemesis. This would not be explained by your gallbladder. We did do blood work today which showed a white count of 6.4, hemoglobin of 12.2, platelet count 216. We did a comprehensive metabolic panel which was normal with no elevated liver enzymes and a normal lipase. An ultrasound was done demonstrating gallstones but otherwise a contracted gallbladder without evidence of cholecystitis. You do have a fatty liver as well. I sent your prescription electronically to [facility] in [place]. Follow-up with the surgeon on Saturday as scheduled, given the bloody vomit they may want to perform an upper endoscopy prior to considering you for of gallbladder removal. In the interim I am starting omeprazole for stomach acid and I sent a limited number of Dilaudid as well to [facility]. Return for new or worsening symptoms. I am prescribing a short course of narcotic pain medication for you. These are potentially dangerous and addictive medications that should be used carefully. These medications may constipate you. Take an [id number] stool softener (docusate) twice daily with plenty of water while taking these medications. If you go 24 hours without a bowel movement, take [id number]-[id number] miralax, per package instructions. Do not drink or drive while taking these medications. If you received narcotic or sedating medications while in the emergency department, do not drive for 24 hours. Store this medication in a safe, secure place and out of reach of children. It is a violation of federal law to give or sell this medication to another person or to use in a manner other than prescribed. The ED will not refill narcotic prescriptions, including prescriptions lost or stolen. To dispose of unwanted medications: 1. [facility] at [address] in [place] has a medication drop box. They accept prescription medications (in pill form) Saturday through Saturday 9:00 a.m. to 5:00 p.m. 2. The [facility] [employer] accepts prescription medications (in pill form only) for disposal year round. Call for more information. 3. Contact the [facility] for the next [facility] sponsored prescription drug collection event. , [phone], or [phone]; Note that many narcotic pain relievers also contain Tylenol/acetaminophen. Please ensure that your total dose of acetaminophen from all sources does not exceed 3 g (3000 mg) per day. Discharge Date/Time: 05/21/22 19:37
[2022-05-21 15:51] LABS: BASOPHILS % (AUTO) 0.3 %; EOSINOPHILS # (AUTO) 0.1 10^3/uL (0.0-0.7); EOSINOPHILS % (AUTO) 1.1 %; HCT - HEMATOCRIT 34.7 % (37.0-47.0); HGB - HEMOGLOBIN 12.2 g/dL (12.0-16.0); LYMPHOCYTES # (AUTO) 2.8 10^3/uL (1.5-3.5); LYMPHOCYTES % (AUTO) 44.2 %; MEAN CORPUSCULAR HEMOGLOBIN 30.9 pg (27.0-31.0); MEAN CORPUSCULAR HGB CONC 35.2 g/dL (32.0-36.0); MEAN CORPUSCULAR VOLUME 87.8 fL (81.0-99.0); MEAN PLATELET VOLUME 9.5 fL (7.9-10.8); MONOCYTES # (AUTO) 0.6 10^3/uL (0.0-1.0); NEUTROPHILS # (AUTO) 2.8 10^3/uL (1.5-6.6); NEUTROPHILS % (AUTO) 44.1 %; PLT - PLATELET COUNT 216 10^3/uL (130-450); RED BLOOD COUNT 3.95 10^6/uL (4.20-5.40); RED CELL DISTRIBUTION WIDTH 12.1 % (12.0-15.0); WHITE BLOOD COUNT 6.4 x10^3/uL (4.8-10.8)
[2022-05-21 16:03] LABS: ALBUMIN 3.8 g/dL (3.2-5.5); ALBUMIN/GLOBULIN RATIO 1.5 (1.0-2.2); BILIRUBIN,TOTAL 0.6 mg/dL (0.2-1.0); CALCIUM 8.8 mg/dL (8.5-10.3); CREATININE 0.8 mg/dL (0.4-1.0); TOTAL PROTEIN 6.4 g/dL (6.7-8.2)
[2022-05-21] MEDS ORDERED: KETOROLAC 15 MG/ML VIAL IVP STA (16:18)
[2022-05-21] MEDS ORDERED: MAG HYDROX/AL HYDROX/SIMETH 30 ML UDC PO STA (17:21)
[2022-05-21] MEDS ORDERED: LIDOCAINE VISCOUS 2% 15 ML UDC MM STA (17:21)
--- NOTE | 2022-05-21 17:39 | Ultrasound Report ---
PROCEDURE: Abdomen Limited INDICATIONS: ruq pain TECHNIQUE: Real-time focused scanning was performed of the abdomen, with image documentation. COMPARISON: Outside ultrasound dated 05/05/2022 and 05/10/2022. FINDINGS: Mildly increased liver parenchymal echotexture is seen, no discrete hepatic lesion. Liver is normal i n size. There are multiple tiny Stone seen in dependent portion of gallbladder lumen. No gallbladder wall thi ckening or pericholecystic fluid. No sonographic Mccoy's sign. There is no intrahepatic biliary ductal dilatation. Common bile that measures up to 4.2 mm in diamete r and is within normal limits. This is not well seen due to overlying bowel gas. Right kidney measures 10 cm in length and 0.8 cm in renal cortical thickness. No hydronephrosis or so lid appearing renal lesion. IMPRESSION: 1. Cholelithiasis without sonographic evidence of acute cholecystitis. 2. No biliary ductal dilatation. 3. Mild hepatic steatosis unchanged from prior studies. Reviewed by: Jimmy Espinoza MD on 05/21/2022 5:38 PM PDT Approved by: Jimmy Espinoza MD on 05/21/2022 5:38 PM PDT Station ID: [id number]
[2022-05-21] MEDS ORDERED: diphenhydrAMINE INJ 50 MG/ML VIAL IVP STA (17:49)
[2022-05-21] MEDS ORDERED: EPINEPHrine 1 MG/ML AMP ONE (17:49)
[2022-05-21] MEDS ORDERED: EPINEPHrine 1 MG/ML AMP IM STA (17:49)
[2022-05-21] MEDS ORDERED: PROMETHAZINE INJ 25 MG in SODIUM CHLORIDE 0.9% 50 ML IV STA (18:13)
[2022-05-21 19:04] VITALS: BP 119/67
== END 2022-05-21 19:37 | disposition home or self-care (01) ==
LOC: ED 15:36
DX: R10.11 Right upper quadrant pain (principal); K80.20 Calculus of gallbladder without cholecystitis without obstruction; K92.0 Hematemesis; K92.1 Melena; K76.0 Fatty (change of) liver, not elsewhere classified
CPT/HCPCS: 36415; 76705; 80053; 83690; 85025; 96361; 96365; 96372; 96375; 96376; 99284; 99285; A9270; J1170; J1200; J7040

== ENCOUNTER 2022-05-30 13:14 | Outpatient (CLI) | payer MEDICAID | END 2022-05-30 13:15 | disposition short-term general hospital (02) | LOC: EMS 13:14 | DX: K92.0 Hematemesis (principal); R55 Syncope and collapse; R56.9 Unspecified convulsions; R53.1 Weakness; R10.11 Right upper quadrant pain | CPT/HCPCS: A0425; A0427; A0999 ==

== ENCOUNTER 2022-06-08 10:24 | Emergency (ER) | payer MEDICAID ==
[2022-06-08] MEDS ORDERED: SODIUM CHLORIDE 0.9% 1,000 ML IV STA (10:55)
[2022-06-08] MEDS ORDERED: MORPHINE 2 MG/ML CARPUJECT IVP STA (10:55)
--- NOTE | 2022-06-08 10:55 | ED Physician Documentation ---
PD HPI ABD PAIN - Stated complaint Stated Complaint: OPEN SURGICAL WOUND - Chief complaint Chief Complaint: Abd Pain - History obtained from History obtained from: Patient - Additional information Additional information: 27-year-old woman with history of psychogenic nonepileptic seizures, remote hysterectomy and oophorectomy and more recently had an emergency cholecystectomy on the third of this month [facility]. She was slowly improving but over the last day or so has developed increased right upper quadrant pain associated with a fever at home to 101. She also notes that she has had only a single small bowel movement since her surgery despite taking Colace and MiraLAX. She has been vomiting, occasional blood tinge. That is not acute necessarily and she is had a negative upper endoscopy for same. This was recently. She also notes that her umbilical incision started bleeding. 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: Hysterectomy, Oophrectomy - Present Medications Home Medications: Ambulatory Orders Medication Instructions Recorded Confirmed Diazepam [Valium] 10 mg PO QID 12/30/20 02/26/22 Sertraline HCl 200 mg PO DAILY 12/30/20 02/26/22 traMADol [Ultram] 100 mg PO BID 12/30/20 02/26/22 QUEtiapine [SEROquel] 1 tab PO DAILY 02/27/21 02/26/22 lamoTRIgine [LaMICtal] 200 mg PO DAILY 02/27/21 02/26/22 metFORMIN [Glucophage] 1 tab PO BID 02/27/21 02/26/22 haloperidoL [Haldol] 0.5 mg PO BID PRN #20 tablet 07/28/21 02/26/22 Diazepam [Valium] 10 mg PO QID #60 tablet 02/26/22 haloperidoL [Haldol] 0.5 mg PO BID PRN #20 tablet 02/26/22 Diazepam [Valium] 10 mg PO TID #40 tablet 03/08/22 Tramadol HCl [Ultram] 50 mg PO QID PRN #40 tablet 03/08/22 traMADol [Ultram] 100 mg PO Q6H PRN #14 tablet 04/04/22 HYDROmorphone [Dilaudid] 1 - 2 tab PO Q4H PRN #15 tablet 05/21/22 Omeprazole 40 mg PO DAILY #30 cap 05/21/22 Lactulose [Generlac] 10 gm PO QID PRN #150 ml 06/08/22 Oxycodone HCl/Acetaminophen 1 - 2 each PO Q6H PRN #10 tablet 06/08/22 [Percocet 5-325 mg Tablet] bisacodyL [Dulcolax] 10 mg PO BID #15 tablet 06/08/22 - Allergies Allergies/Adverse Reactions: Allergies Allergy/AdvReac Type Severity Reaction Status Date / Time adhesive Allergy Rash Verified 05/21/22 15:46 Cephalosporins Allergy Hives Verified 05/21/22 15:46 Iodinated Contrast Media Allergy Anaphylaxis Verified 05/21/22 15:46 latex Allergy Rash Verified 05/21/22 15:46 lidocaine Allergy Unknown Verified 05/21/22 15:46 metoclopramide [From Reglan] Allergy Anaphylaxis Verified 05/21/22 15:46 Penicillins Allergy Hives Verified 05/21/22 15:46 prochlorperazine Allergy Anaphylaxis Verified 05/21/22 15:46 [From Compazine] all antibiotic except Allergy Anaphylaxis Uncoded 05/21/22 15:46 levaquin - Social History Does the pt smoke?: No Smoking Status: Never smoker Does the pt drink ETOH?: No Does the pt have substance abuse?: No - Immunizations Immunizations are current?: Yes PD ED PE NORMAL - Vitals Vital signs reviewed: Yes - General General: Alert and oriented X 3, No acute distress - HEENT HEENT: PERRL, EOMI - Neck Neck: Supple, no meningeal sign, No bony TTP - Cardiac Cardiac: RRR, No murmur - Respiratory Respiratory: No respiratory distress, Clear bilaterally - Abdomen Abdomen: Other (Exquisitely tender in the right upper quadrant without surgical signs, she has bowel tones. There is a Kleenex over the umbilical incision that has some blood on it but no clear active bleeding.) - Back Back: No CVA TTP, No spinal TTP - Derm Derm: Normal color, Warm and dry - Extremities Extremities: No edema, No calf tenderness / cord - Neuro Neuro: Alert and oriented X 3, Normal speech Results - Vitals Vitals: Vital Signs - 24 hr 06/08/22 06/08/22 10:36 13:44 Temperature 36.6 C 36.9 C Heart Rate 87 80 Respiratory 18 18 Rate Blood Pressure 117/71 122/44 L O2 Saturation 98 100 Oxygen O2 Source Room air - Labs Labs: Laboratory Tests 06/08/22 06/08/22 06/08/22 11:21 12:06 13:13 WBC 6.2 RBC 4.28 Hgb 12.9 Hct 39.0 MCV 91.1 MCH 30.1 MCHC 33.1 RDW 12.5 Plt Count 239 MPV 9.3 Neut # (Auto) 3.4 Lymph # (Auto) 2.0 [place] # (Auto) 0.6 Eos # (Auto) 0.2 Baso # (Auto) 0.1 Absolute Nucleated RBC 0.00 Nucleated RBC % 0.0 Sodium 133 L Potassium 3.8 Chloride 101 Carbon Dioxide 25 Anion Gap 7.0 BUN 11 Creatinine 0.8 Estimated GFR (MDRD) 85 L Glucose 86 Calcium 8.3 L Total Bilirubin 0.3 AST 12 ALT 11 Alkaline Phosphatase 38 L Total Protein 6.1 L Albumin 3.6 Globulin 2.5 Albumin/Globulin Ratio 1.4 Lipase 29 Urine Color YELLOW Urine Clarity HAZY Urine pH 6.0 Ur Specific [place] <=1.005 Urine Protein NEGATIVE Urine Glucose (UA) NEGATIVE Urine Ketones NEGATIVE Urine Occult Blood LARGE H Urine Nitrite NEGATIVE Urine Bilirubin NEGATIVE Urine Urobilinogen 0.2 (NORMAL) Ur Leukocyte Esterase NEGATIVE Urine RBC 0-5 Urine WBC 0-3 Ur Squamous Epith Cells MANY Squamous H Urine Bacteria Few Ur Microscopic Review INDICATED Urine Culture Comments NOT INDICATED PD MEDICAL DECISION MAKING - ED course ED course: 27-year-old woman with recent cholecystectomy presents with abdominal pain and o bstipation despite laxatives at home. She had a fever at home but this is not corroborated here and a normal white count. CT imaging demonstrates large stool load but no other acute abnormalities and her labs were otherwise negative and she is treated with Dulcolax and lactulose. Departure - Departure Disposition: 01 Home, Self Care Clinical Impression: Abdominal pain Constipation Qualifiers: Constipation type: other constipation type Qualified Code(s): K59.09 - Other constipation Condition: Good Record reviewed to determine appropriate education?: Yes Instructions: ED Abdominal Pain Female Non-Specific Abdominal Pain, ED Constipation Prescriptions: bisacodyL [Dulcolax] 10 mg PO BID #15 tablet Lactulose [Generlac] 10 gm PO QID PRN #150 ml PRN Reason: Constipation Oxycodone HCl/Acetaminophen [Percocet 5-325 mg Tablet] 1 - 2 each PO Q6H PRN #10 tablet PRN Reason: pain Comments: I sent your prescriptions electronically [facility] in [place]. As discussed, the CAT scan shows only a large load of stool without obstruction and no evidence of infection on the CAT scan or labs. Return if fevers recur or other new or concerning symptoms happen, you should also let your surgeon from [facility] know that you were here, call their office on Saturday for an appointment. Discharge Date/Time: 06/08/22 13:51
[2022-06-08 11:27] LABS: BASOPHILS # (AUTO) 0.1 10^3/uL (0.0-0.1); EOSINOPHILS # (AUTO) 0.2 10^3/uL (0.0-0.7); EOSINOPHILS % (AUTO) 3.7 %; HGB - HEMOGLOBIN 12.9 g/dL (12.0-16.0); LYMPHOCYTES % (AUTO) 31.6 %; MEAN CORPUSCULAR HEMOGLOBIN 30.1 pg (27.0-31.0); MEAN CORPUSCULAR HGB CONC 33.1 g/dL (32.0-36.0); MEAN CORPUSCULAR VOLUME 91.1 fL (81.0-99.0); MEAN PLATELET VOLUME 9.3 fL (7.9-10.8); MONOCYTES # (AUTO) 0.6 10^3/uL (0.0-1.0); MONOCYTES % (AUTO) 9.2 %; NEUTROPHILS # (AUTO) 3.4 10^3/uL (1.5-6.6); NEUTROPHILS % (AUTO) 54.3 %; PLT - PLATELET COUNT 239 10^3/uL (130-450); RED BLOOD COUNT 4.28 10^6/uL (4.20-5.40); RED CELL DISTRIBUTION WIDTH 12.5 % (12.0-15.0); WHITE BLOOD COUNT 6.2 x10^3/uL (4.8-10.8)
[2022-06-08] MEDS ORDERED: HYDROmorphone 1 MG/ML CARPUJECT IVP STA (11:49)
[2022-06-08 12:23] LABS: ALBUMIN 3.6 g/dL (3.2-5.5); ALBUMIN/GLOBULIN RATIO 1.4 (1.0-2.2); BILIRUBIN,TOTAL 0.3 mg/dL (0.2-1.0); CALCIUM 8.3 mg/dL (8.5-10.3); CREATININE 0.8 mg/dL (0.4-1.0); POTASSIUM 3.8 mmol/L (3.5-5.0); TOTAL PROTEIN 6.1 g/dL (6.7-8.2)
[2022-06-08] MEDS ORDERED: ONDANSETRON 4 MG/2 ML VIAL IVP STA (12:54)
[2022-06-08] MEDS ORDERED: KETOROLAC 15 MG/ML VIAL IVP STA (12:54)
--- NOTE | 2022-06-08 13:04 | CT Report ---
PROCEDURE: ABDOMEN/PELVIS WO INDICATIONS: Post cholecystectomy pain and fever, allergic to c TECHNIQUE: Noncontrast 5 mm thick sections acquired from the diaphragms to the symphysis. 5 mm coronal and sagi ttal reformats were then performed. For radiation dose reduction, the following was used: automated exposure control, adjustment of mA and/or kV according to patient size. COMPARISON: 12/30/2020. FINDINGS: Image quality: Excellent. ABDOMEN: Lung bases: Mild bibasilar atelectasis. Heart size is normal. Solid organs: Liver and spleen are normal in size. Gallbladder is surgically absent. No evidence fo r inflammatory changes or abnormal fluid collections in the gallbladder fossa. Pancreas is normal in contours. No adrenal nodules. Kidneys are normal in size, without hydronephrosis or nephrolithiasi s. Peritoneum and bowel: Unenhanced bowel loops demonstrate normal wall thickness and caliber. No free fluid or air. Nodes and vessels: No retroperitoneal or mesenteric adenopathy by size criteria. Aorta and inferior vena cava are normal in caliber. Miscellaneous: There are expected subcutaneous soft tissue stranding in the periumbilical region as w ell as the anterior abdominal wall bilaterally from recent microscopic cholecystectomy. No evidence f or organized fluid collection seen. PELVIS: Genitourinary: Bladder wall thickness is normal. Miscellaneous: No inguinal hernias or adenopathy. Bones: No suspicious bony lesions. No acute vertebral body compression fractures. IMPRESSION: Expected postsurgical changes from laparoscopic cholecystectomy. No evidence for abnormal fluid colle ctions or abscess formation. Otherwise, no acute abnormalities identified in the abdomen or pelvis. Reviewed by: Scooby Jefferson MD on 06/08/2022 1:03 PM PST Approved by: Scooby Jefferson MD on 06/08/2022 1:03 PM PST Station ID: [id number]
[2022-06-08 13:45] VITALS: BP 122/44
[2022-06-08 13:45] LABS: BILIRUBIN,URINE NEGATIVE (NEGATIVE); CLARITY,URINE HAZY (CLEAR); GLUCOSE, URINE (UA) NEGATIVE (NEGATIVE); KETONES,URINE (UA) NEGATIVE (NEGATIVE); LEUKOCYTE ESTERASE, URINE NEGATIVE (NEGATIVE); NITRITE,URINE NEGATIVE (NEGATIVE); OCCULT BLOOD,URINE LARGE (NEGATIVE); PROTEIN,URINE NEGATIVE (NEGATIVE); UROBILINOGEN,URINE 0.2 (NORMAL) E.U./dL (NORMAL)
[2022-06-08 13:52] LABS: BACTERIA,URINE Few /HPF (None Seen); RBC,URINE 0-5 /HPF (0-5); SQUAMOUS EPITHELIAL CELL,UR MANY Squamous (<= Few); WBC,URINE 0-3 /HPF (0-5)
== END 2022-06-08 13:51 | disposition home or self-care (01) ==
LOC: ED 10:24
DX: R10.11 Right upper quadrant pain (principal); K59.00 Constipation, unspecified
CPT/HCPCS: 36415; 74176; 80053; 81001; 83690; 85025; 96361; 96374; 96375; 99284; J1170; 81003; 87086

== ENCOUNTER 2022-08-20 16:52 | Outpatient (CLI) | payer MEDICAID | END 2022-08-20 16:53 | disposition critical access hospital (66) | LOC: EMS 16:52 | DX: R56.9 Unspecified convulsions (principal); E16.2 Hypoglycemia, unspecified | CPT/HCPCS: A0425; A0427; A0999 ==

== ENCOUNTER 2022-08-20 17:12 | Emergency (ER) | payer MEDICAID ==
--- NOTE | 2022-08-20 17:30 | ED Physician Documentation ---
History of Present Illness - Stated complaint Stated Complaint: SZ - History obtained from History obtained from: Patient, Family - Additonal information Additional information: 27-year-old woman who a few years ago was diagnosed with psychogenic nonepileptic seizures via video EEG monitoring. She frequently has seizure episodes, but mom notes that they have changed over the last couple of months. She was hospitalized back to back in early May for upper GI bleeding. During that hospitalization she was put on Keppra which was not continued on discharge. In the hospital it was noted that she had some episodes of bradycardia and has been referred to cardiology and neurology but these have not been completed. The discharge summary from [facility] notes "abnormal ECG during exercise stress test," but patient and mother do not think she had a stress test while there. Today she had a seizure, it lasted 10 minutes. It is frequent for her to have seizures or seizure-like activity but differently this time her heart rate was in the 40s with pulse ox is in the low 70s. Review of Systems Constitutional: denies: Fever, Chills Cardiac: reports: Chest pain / pressure (Frequently, Not necessarily acute). 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: Ovarian cysts : Kidney stones Psych: Post traumatic stress disorder - Past Surgical History Past Surgical History: Yes General: Appendectomy /DIRECTOR OF HOUSING AND ENERGY SERVICES: Hysterectomy, Oophrectomy - Present Medications Home Medications: Ambulatory Orders Medication Instructions Recorded Confirmed Diazepam [Valium] 10 mg PO QID 12/30/20 02/26/22 Sertraline HCl 200 mg PO DAILY 12/30/20 02/26/22 traMADol [Ultram] 100 mg PO BID 12/30/20 02/26/22 QUEtiapine [SEROquel] 1 tab PO DAILY 02/27/21 02/26/22 lamoTRIgine [LaMICtal] 200 mg PO DAILY 02/27/21 02/26/22 metFORMIN [Glucophage] 1 tab PO BID 02/27/21 02/26/22 haloperidoL [Haldol] 0.5 mg PO BID PRN #20 tablet 07/28/21 02/26/22 Diazepam [Valium] 10 mg PO QID #60 tablet 02/26/22 haloperidoL [Haldol] 0.5 mg PO BID PRN #20 tablet 02/26/22 Diazepam [Valium] 10 mg PO TID #40 tablet 03/08/22 Tramadol HCl [Ultram] 50 mg PO QID PRN #40 tablet 03/08/22 traMADol [Ultram] 100 mg PO Q6H PRN #14 tablet 04/04/22 HYDROmorphone [Dilaudid] 1 - 2 tab PO Q4H PRN #15 tablet 05/21/22 Omeprazole 40 mg PO DAILY #30 cap 05/21/22 Lactulose [Generlac] 10 gm PO QID PRN #150 ml 06/08/22 Oxycodone HCl/Acetaminophen 1 - 2 each PO Q6H PRN #10 tablet 06/08/22 [Percocet 5-325 mg Tablet] bisacodyL [Dulcolax] 10 mg PO BID #15 tablet 06/08/22 haloperidoL [Haldol] 0.5 mg PO BID PRN #8 tablet 08/20/22 - Allergies Allergies/Adverse Reactions: Allergies Allergy/AdvReac Type Severity Reaction Status Date / Time adhesive Allergy Rash Verified 08/20/22 17:37 Cephalosporins Allergy Hives Verified 08/20/22 17:37 Iodinated Contrast Media Allergy Anaphylaxis Verified 08/20/22 17:37 latex Allergy Rash Verified 08/20/22 17:37 lidocaine Allergy Unknown Verified 08/20/22 17:37 metoclopramide [From Reglan] Allergy Anaphylaxis Verified 08/20/22 17:37 Penicillins Allergy Hives Verified 08/20/22 17:37 prochlorperazine Allergy Anaphylaxis Verified 08/20/22 17:37 [From Compazine] all antibiotic except Allergy Anaphylaxis Uncoded 08/20/22 17:37 levaquin - Social History Does the pt smoke?: No Smoking Status: Never smoker Does the pt drink ETOH?: No Does the pt have substance abuse?: No - Immunizations Immunizations are current?: Yes PD ED PE NORMAL - Vitals Vital signs reviewed: Yes - General General: Alert and oriented X 3 - HEENT HEENT: PERRL, EOMI - Neck Neck: Supple, no meningeal sign, No bony TTP - Cardiac Cardiac: RRR, No murmur - Respiratory Respiratory: No respiratory distress, Clear bilaterally - Abdomen Abdomen: Soft, Non tender - Back Back: No CVA TTP, No spinal TTP - Derm Derm: Normal color, Warm and dry - Extremities Extremities: No edema, No calf tenderness / cord - Neuro Neuro: Alert and oriented X 3, 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, Normal speech, Other (Episodically has eye fluttering and unresponsiveness which she quickly recovers from without postictal phase.) Eye Opening: Spontaneous Motor: Obeys Commands Verbal: Oriented GCS Score: 15 - Psych Psych: Normal mood, Normal affect Results - Vitals Vitals: Vital Signs - 24 hr 08/20/22 08/20/22 08/20/22 17:31 17:34 18:04 Temperature 37.2 C Heart Rate 78 68 69 Respiratory 20 18 17 Rate Blood Pressure 104/47 L 129/67 137/89 H O2 Saturation 99 100 100 08/20/22 08/20/22 08/20/22 18:30 19:00 19:30 Temperature Heart Rate 72 84 67 Respiratory 16 18 19 Rate Blood Pressure 117/74 105/85 H 120/77 O2 Saturation 100 98 99 08/20/22 08/20/22 08/20/22 20:00 20:20 20:58 Temperature Heart Rate 77 78 74 Respiratory 18 18 18 Rate Blood Pressure 114/64 112/67 118/67 O2 Saturation 100 99 99 08/20/22 21:23 Temperature 36.8 C Heart Rate 66 Respiratory 18 Rate Blood Pressure 111/78 O2 Saturation 100 Oxygen O2 Source Room air - EKG (time done) 1724 Rate: Rate (enter#) (72) Rhythm: NSR [place]: Normal Intervals: Normal [place] QRS: Normal Ischemia: Normal ST segments - Labs Labs: Laboratory Tests 08/20/22 08/20/22 08/20/22 17:41 17:51 18:05 WBC 5.7 RBC 4.40 Hgb 13.4 Hct 40.0 MCV 90.9 MCH 30.5 MCHC 33.5 RDW 12.4 Plt Count 179 MPV 10.9 H Neut # (Auto) 2.4 Lymph # (Auto) 2.4 [place] # (Auto) 0.6 Eos # (Auto) 0.2 Baso # (Auto) 0.0 Absolute Nucleated RBC 0.00 Nucleated RBC % 0.0 Sodium Potassium Chloride Carbon Dioxide Anion Gap BUN Creatinine Estimated GFR (MDRD) Glucose Calcium Magnesium Total Bilirubin AST ALT Alkaline Phosphatase Troponin I High Sens Total Protein Albumin Globulin Albumin/Globulin Ratio Prolactin Urine HCG, Qual NEGATIVE Urine Opiates Screen NEGATIVE Ur Oxycodone Screen POSITIVE H Urine Methadone Screen NEGATIVE Ur Propoxyphene Screen NEGATIVE Ur Barbiturates Screen NEGATIVE Ur Tricyclics Screen NEGATIVE Ur Phencyclidine Scrn NEGATIVE Ur Amphetamine Screen NEGATIVE U Methamphetamines Scrn NEGATIVE U Benzodiazepines Scrn POSITIVE H Urine Cocaine Screen NEGATIVE U Cannabinoids Screen NEGATIVE Ethyl Alcohol 08/20/22 08/20/22 08/20/22 18:05 18:05 18:05 WBC RBC Hgb Hct MCV MCH MCHC RDW Plt Count MPV Neut # (Auto) Lymph # (Auto) Morgan # (Auto) Eos # (Auto) Baso # (Auto) Absolute Nucleated RBC Nucleated RBC % Sodium 138 Potassium 3.6 Chloride 107 Carbon Dioxide 25 Anion Gap 6.0 BUN 13 Creatinine 0.8 Estimated GFR (MDRD) 85 L Glucose 55 L* Calcium 9.0 Magnesium 1.8 Total Bilirubin 0.6 AST 16 ALT 12 Alkaline Phosphatase 38 L Troponin I High Sens 2.8 Total Protein 6.5 L Albumin 3.7 Globulin 2.8 Albumin/Globulin Ratio 1.3 Prolactin 8.69 Urine HCG, Qual Urine Opiates Screen Ur Oxycodone Screen Urine Methadone Screen Ur Propoxyphene Screen Ur Barbiturates Screen Ur Tricyclics Screen Ur Phencyclidine Scrn Ur Amphetamine Screen U Methamphetamines Scrn U Benzodiazepines Scrn Urine Cocaine Screen U Cannabinoids Screen Ethyl Alcohol < 5.0 PD Medical Decision Making - ED course ED course: 27-year-old woman with history of psychogenic nonepileptic seizures presents with an exacerbation. She, on arrival, is sometimes staring off into space with fluttering eye motions, sometimes making eye contact and following commands. Called to bedside by RN that 174. She was having seizure-like activity, foaming at the mouth. Vital signs are fine, no desats. She did respond with suctioning and withdrew to painful stimulus in both upper extremities. She did deflect her hand from her face, consistent with nonepileptic activity. We will load with IV Keppra pending completion of work-up. Mom had stated previously that that was effective while inpatient a couple of months ago but she was not discharged on it. Subsequently this really had no effect, and mom did not want it continued after the first IV dose. We did give her a dose of Haldol here with cessation of all seizure activity. CBC reviewed and normal. CMP reviewed showing modest hypoglycemia. For this we gave some oral glucose, but that time she did not tolerate it well so this was followed by a single dose of IV D10. Troponin reviewed and negative consistent with no active coronary heart disease. Prolactin level 8.69, normal, albeit with poor test characteristics but suggestive against epileptic activity. Serum hCG negative consistent with non status. Urine drug screen reviewed and showing positive for expected items of oxycodone and benzodiazepines, blood alcohol screen negative. The vital signs at home with bradycardia and low pulse ox were never corroborate d here despite several episodes of seizure-like activity. Departure - Departure Disposition: Home, Self Care Clinical Impression: Seizure-like activity Condition: Good Record reviewed to determine appropriate education?: Yes Instructions: ED Seizure Recurrent Prescriptions: haloperidoL [Haldol] 0.5 mg PO BID PRN #8 tablet PRN Reason: Anxiety Comments: Work-up today demonstrated normal prolactin level, this suggests against true seizure activity. I am glad that you are following up with a Psychiatrist tomorrow and have neurology follow-up. Return for new or worsening symptoms. Discharge Date/Time: 08/20/22 21:26
[2022-08-20] MEDS ORDERED: levETIRAcetam INJ 1,000 MG in SODIUM CHLORIDE 0.9% 100ML 100 ML IV STA (17:46)
[2022-08-20 18:15] LABS: MUDS CUTOFF CONCENTRATIONS CUTOFF CONC BELOW:
[2022-08-20 18:21] LABS: BASOPHILS % (AUTO) 0.5 %; EOSINOPHILS # (AUTO) 0.2 10^3/uL (0.0-0.7); EOSINOPHILS % (AUTO) 3.3 %; HGB - HEMOGLOBIN 13.4 g/dL (12.0-16.0); LYMPHOCYTES # (AUTO) 2.4 10^3/uL (1.5-3.5); LYMPHOCYTES % (AUTO) 42.5 %; MEAN CORPUSCULAR HEMOGLOBIN 30.5 pg (27.0-31.0); MEAN CORPUSCULAR HGB CONC 33.5 g/dL (32.0-36.0); MEAN CORPUSCULAR VOLUME 90.9 fL (81.0-99.0); MEAN PLATELET VOLUME 10.9 fL (7.9-10.8); MONOCYTES # (AUTO) 0.6 10^3/uL (0.0-1.0); NEUTROPHILS # (AUTO) 2.4 10^3/uL (1.5-6.6); NEUTROPHILS % (AUTO) 42.5 %; PLT - PLATELET COUNT 179 10^3/uL (130-450); RED CELL DISTRIBUTION WIDTH 12.4 % (12.0-15.0); WHITE BLOOD COUNT 5.7 x10^3/uL (4.8-10.8)
[2022-08-20 18:41] LABS: AMPHETAMINE SCREEN,URINE NEGATIVE (NEGATIVE); BARBITURATE SCREEN,UR NEGATIVE (NEGATIVE); BENZODIAZEPINES SCREEN, URINE POSITIVE (NEGATIVE); COCAINE SCREEN URINE NEGATIVE (NEGATIVE); METHADONE SCREEN, URINE NEGATIVE (NEGATIVE); METHAMPHETAMINES SCREEN, URINE NEGATIVE (NEGATIVE); OPIATE SCREEN, URINE NEGATIVE (NEGATIVE); OXYCODONE SCREEN, URINE POSITIVE (NEGATIVE); PROPOXYPHENE SCREEN, URINE NEGATIVE (NEGATIVE); THC CANNABINOID SCREEN, URINE NEGATIVE (NEGATIVE); TRICYCLIC ANTIDEPRESSANT,URINE NEGATIVE (NEGATIVE)
[2022-08-20 18:51] LABS: ALBUMIN 3.7 g/dL (3.2-5.5); ALBUMIN/GLOBULIN RATIO 1.3 (1.0-2.2); ALKALINE PHOSPHATASE 38 IU/L (42-121); ALT ALANINE AMINOTRANSFERASE 12 IU/L (10-60); AST ASPARTATE AMINOTRANSFERASE 16 IU/L (10-42); BILIRUBIN,TOTAL 0.6 mg/dL (0.2-1.0); BUN - BLOOD UREA NITROGEN 13 mg/dL (6-20); CARBON DIOXIDE - CO2 25 mmol/L (21-32); CHLORIDE 107 mmol/L (101-111); CREATININE 0.8 mg/dL (0.4-1.0); ETOH - ETHANOL < 5.0 mg/dL; GFR - MDRD 85 (>89); MAGNESIUM 1.8 mg/dL (1.7-2.8); POTASSIUM 3.6 mmol/L (3.5-5.0); SODIUM 138 mmol/L (135-145); TOTAL PROTEIN 6.5 g/dL (6.7-8.2)
[2022-08-20 18:53] LABS: GLUCOSE 55 mg/dL (70-100)
[2022-08-20] MEDS ORDERED: DEXTROSE 10% 200 ML IV STA (19:06)
[2022-08-20] MEDS ORDERED: HALOPERIDOL 5 MG/ML VIAL IVP STA (19:07)
[2022-08-20 19:29] LABS: HCG UR QUAL NEGATIVE
--- NOTE | 2022-08-20 19:36 | XRAY Report ---
PROCEDURE: Chest 1 View X-Ray INDICATIONS: chest pain TECHNIQUE: One view of the chest was acquired. COMPARISON: None. FINDINGS: Surgical changes and devices: None. Lungs and pleura: No pleural effusions or pneumothorax. Lungs are clear. Mediastinum: Mediastinal contours appear normal. Heart size is normal. Bones and chest wall: No suspicious bony lesions. Overlying soft tissues appear unremarkable. IMPRESSION: No acute process. Reviewed by: Allie Ashley MD on 08/20/2022 7:34 PM [facility] Approved by: Allie Ashley MD on 08/20/2022 7:34 PM [facility] Station ID: [id number]
[2022-08-20 21:25] VITALS: BP 111/78
== END 2022-08-20 21:26 | disposition home or self-care (01) ==
LOC: ED 17:12
DX: R56.9 Unspecified convulsions (principal)
CPT/HCPCS: 36415; 80053; 80306; 80320; 81025; 83735; 84146; 84484; 85025; 93005; 96365; 96367; 96375; 99284

== ENCOUNTER 2022-08-25 18:20 | Outpatient (CLI) | payer MEDICAID | END 2022-08-25 18:21 | disposition critical access hospital (66) | LOC: EMS 18:20 | DX: R56.9 Unspecified convulsions (principal) | CPT/HCPCS: A0425; A0427; A0999 ==

== ENCOUNTER 2022-08-27 16:07 | Outpatient (CLI) | payer MEDICAID ==
[2022-08-27 22:30] LABS: BACTERIAL VAGINOSIS DNA NEGATIVE (NEGATIVE); CANDIDA GLABRATA DNA NEGATIVE (NEGATIVE); CANDIDA GROUP DNA POSITIVE (NEGATIVE); CANDIDA KRUSEI DNA NEGATIVE (NEGATIVE); TRICHOMONAS VAGINALIS DNA NEGATIVE (NEGATIVE)
[2022-08-27 23:19] LABS: CHLAMYDIA TRACHOMATIS DNA NEGATIVE (NEGATIVE); NEISSERIA GONORRHOEAE DNA NEGATIVE (NEGATIVE)
[2022-08-29 06:09] LABS: HCV AB <0.1 s/co ratio (0.0-0.9); HIV SCREEN 4TH GENERATION Non Reactive (Non Reactive); HSV 2 IGG TYPE SPEC <0.91 index (0.00-0.90)
[2022-08-29 09:09] LABS: RPR Non Reactive (Non Reactive)
== END 2022-08-27 23:59 | disposition home or self-care (01) ==
LOC: LAB.N 16:07
PROVIDERS: ATTEND Nurse Practitioner
DX: Z11.3 Encounter for screening for infections with a predominantly sexual mode of transmission (principal)
CPT/HCPCS: 36415; 81514; 86592; 86695; 86696; 86803; 87389; 87491; 87591; 87661

== ENCOUNTER 2022-09-01 18:50 | Emergency (ER) | payer MEDICAID ==
--- NOTE | 2022-09-01 19:19 | ED Physician Documentation ---
PD HPI ABD PAIN - Stated complaint Stated Complaint: VOMITING BLOOD/ABD PX - Chief complaint Chief Complaint: Abd Pain - History obtained from History obtained from: Patient - History of Present Illness Timing - details: Abrupt onset Pain level now: 8 Quality: Pain Location: RUQ Worsened by: Palpation Associated symptoms: Nausea, Vomiting, Hematemesis. No: Fever, Diarrhea, Constipation Recently seen: Emergency Dept - Additional information Additional information: HPI from patient. Patient complains of nausea, vomiting, with some blood in the vomitus. The symptoms started today. She also complains of right upper quadrant pain which she says she has had since cholecystectomy which was undertaken May 31, 2022.Patient says he has had hematemesis in the past, although the previous episode was shortly before the cholecystectomy and not since then until tonight.She does not take any blood thinning medication Review of Systems Constitutional: denies: Fever GI: reports: Abdominal Pain, Nausea, Vomiting, Hematemesis. 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: Hysterectomy, Oophrectomy - Present Medications Home Medications: Ambulatory Orders Medication Instructions Recorded Confirmed Diazepam [Valium] 10 mg PO QID 12/30/20 02/26/22 Sertraline HCl 200 mg PO DAILY 12/30/20 02/26/22 traMADol [Ultram] 100 mg PO BID 12/30/20 02/26/22 QUEtiapine [SEROquel] 1 tab PO DAILY 02/27/21 02/26/22 lamoTRIgine [LaMICtal] 200 mg PO DAILY 02/27/21 02/26/22 metFORMIN [Glucophage] 1 tab PO BID 02/27/21 02/26/22 haloperidoL [Haldol] 0.5 mg PO BID PRN #20 tablet 07/28/21 02/26/22 Diazepam [Valium] 10 mg PO QID #60 tablet 02/26/22 haloperidoL [Haldol] 0.5 mg PO BID PRN #20 tablet 02/26/22 Diazepam [Valium] 10 mg PO TID #40 tablet 03/08/22 Tramadol HCl [Ultram] 50 mg PO QID PRN #40 tablet 03/08/22 traMADol [Ultram] 100 mg PO Q6H PRN #14 tablet 04/04/22 HYDROmorphone [Dilaudid] 1 - 2 tab PO Q4H PRN #15 tablet 05/21/22 Omeprazole 40 mg PO DAILY #30 cap 05/21/22 Lactulose [Generlac] 10 gm PO QID PRN #150 ml 06/08/22 Oxycodone HCl/Acetaminophen 1 - 2 each PO Q6H PRN #10 tablet 06/08/22 [Percocet 5-325 mg Tablet] bisacodyL [Dulcolax] 10 mg PO BID #15 tablet 06/08/22 haloperidoL [Haldol] 0.5 mg PO BID PRN #8 tablet 08/20/22 - Allergies Allergies/Adverse Reactions: Allergies Allergy/AdvReac Type Severity Reaction Status Date / Time adhesive Allergy Rash Verified 08/25/22 18:44 Cephalosporins Allergy Hives Verified 08/25/22 18:44 Iodinated Contrast Media Allergy Anaphylaxis Verified 08/25/22 18:44 latex Allergy Rash Verified 08/25/22 18:44 lidocaine Allergy Unknown Verified 08/25/22 18:44 metoclopramide [From Reglan] Allergy Anaphylaxis Verified 08/25/22 18:44 Penicillins Allergy Hives Verified 08/25/22 18:44 prochlorperazine Allergy Anaphylaxis Verified 08/25/22 18:44 [From Compazine] all antibiotic except Allergy Anaphylaxis Uncoded 08/25/22 18:44 levaquin - Social History Does the pt smoke?: No Smoking Status: Never smoker Does the pt drink ETOH?: No Does the pt have substance abuse?: No - Immunizations Immunizations are current?: Yes PD ED PE NORMAL - Vitals Vital signs reviewed: Yes - General General: Alert and oriented X 3, Well developed/nourished, Other (appers uncomfortable, holding abdomen) - HEENT HEENT: Moist mucous membranes - Cardiac Cardiac: RRR, No murmur - Respiratory Respiratory: No respiratory distress, Clear bilaterally - Abdomen Abdomen: Soft, Non distended, Other (TTP RUQ without rebound or guarding) - Derm Derm: Normal color, Warm and dry Results - Vitals Vitals: Oxygen O2 Source Room air - Labs Labs: Laboratory Tests 09/01/22 09/01/22 09/01/22 19:13 19:27 19:38 WBC 7.2 RBC 4.13 L Hgb 12.6 Hct 36.9 L MCV 89.3 MCH 30.5 MCHC 34.1 RDW 12.5 Plt Count 252 MPV 9.9 Neut # (Auto) 3.6 Lymph # (Auto) 2.9 [place] # (Auto) 0.5 Eos # (Auto) 0.2 Baso # (Auto) 0.0 Absolute Nucleated RBC 0.00 Nucleated RBC % 0.0 Sodium 133 L Potassium 3.5 Chloride 103 Carbon Dioxide 19 L Anion Gap 11.0 BUN 10 Creatinine 0.8 Estimated GFR (MDRD) 85 L Glucose 85 Calcium 9.0 Total Bilirubin 0.6 AST 13 ALT 13 Alkaline Phosphatase 36 L Total Protein 6.4 L Albumin 3.8 Globulin 2.6 Albumin/Globulin Ratio 1.5 Lipase 30 Urine Color YELLOW Urine Clarity CLEAR Urine pH 6.0 Ur Specific [place] 1.010 Urine Protein NEGATIVE Urine Glucose (UA) NEGATIVE Urine Ketones NEGATIVE Urine Occult Blood NEGATIVE Urine Nitrite NEGATIVE Urine Bilirubin NEGATIVE Urine Urobilinogen 0.2 (NORMAL) Ur Leukocyte Esterase NEGATIVE Ur Microscopic Review NOT INDICATED Urine Culture Comments NOT INDICATED Urine HCG, Qual NEGATIVE PD Medical Decision Making - ED course Complexity details: reviewed old records, reviewed results, re-evaluated patient, considered differential, d/w patient ED course: Tests ordered and results reviewed by me: CBC, ER abdominal panel, urine hCG. IV is established and she is given 4 mg IV morphine, 25 mg IV Phenergan. She is also given 40 mg intravenous Protonix for possible gastritis cause or component. KAEL form reflects that chevy is patient's 16th emergency room visit to 3 different emergency rooms over the past 12 months.The KAEL form also reflects regular prescriptions for diazepam and oxycodone which date back to prior to her cholecystectomy in May and continuing after the cholecystectomy as well. Departure - Departure Disposition: 01 Home, Self Care Clinical Impression: Hematemesis of unknown cause Condition: Good Instructions: ED Bleed UGI Stable Follow-Up: NIKOLAS GARDNER ARNP [Primary Care Provider] - Comments: There were no concerning findings on the tests performed chevy. Your red blood cell level is within a normal range. At this time the cause of your vomiting blood is not apparent, although, as we discussed, the cause of this type of symptom typically cannot be determined in the emergency department. Provided there is no significant blood loss on the blood tests and that there is not ongoing vomiting of blood during the ER stay, and that symptoms are controlled (pain, nausea/vomiting), It is safe to discharge you home and further tests can be performed in the outpatient setting as directed by your primary care provider if necessary. A test that sometimes is helpful with recurrent vomiting blood is an upper endoscopy; this procedure has both risks and benefits, and your doctor can talk to you about whether this procedure is indicated as well as the risks and benefits of the procedure. As we discussed, one of the more common causes of vomiting blood in this situation would be gastritis, which is inflammation of the lining of the stomach wall. Sometimes the inflammation will break up some blood vessels, causing some blood to be in the vomit. For this reason, you were given an acid blocking medication (Protonix) in the emergency department, and I recommend that you take an [id number] acid catia (such as Prilosec or Nexium) once per day for 2 weeks. Discharge Date/Time: 09/01/22 21:36
[2022-09-01 19:31] LABS: ALBUMIN 3.8 g/dL (3.2-5.5); ALBUMIN/GLOBULIN RATIO 1.5 (1.0-2.2); BILIRUBIN,TOTAL 0.6 mg/dL (0.2-1.0); CREATININE 0.8 mg/dL (0.4-1.0); POTASSIUM 3.5 mmol/L (3.5-5.0); TOTAL PROTEIN 6.4 g/dL (6.7-8.2)
[2022-09-01 19:37] LABS: BILIRUBIN,URINE NEGATIVE (NEGATIVE); GLUCOSE, URINE (UA) NEGATIVE (NEGATIVE); KETONES,URINE (UA) NEGATIVE (NEGATIVE); LEUKOCYTE ESTERASE, URINE NEGATIVE (NEGATIVE); NITRITE,URINE NEGATIVE (NEGATIVE); OCCULT BLOOD,URINE NEGATIVE (NEGATIVE); PROTEIN,URINE NEGATIVE (NEGATIVE); UROBILINOGEN,URINE 0.2 (NORMAL) E.U./dL (NORMAL)
[2022-09-01] MEDS ORDERED: SODIUM CHLORIDE 0.9% 1,000 ML IV STA (19:38)
[2022-09-01] MEDS ORDERED: ONDANSETRON 4 MG/2 ML VIAL IVP STA (19:38)
[2022-09-01] MEDS ORDERED: MORPHINE 2 MG/ML CARPUJECT IVP STA ×2 (19:38→20:55)
[2022-09-01 19:39] LABS: CLARITY,URINE CLEAR (CLEAR); HCG UR QUAL NEGATIVE
[2022-09-01] MEDS ORDERED: PANTOPRAZOLE 40 MG VIAL IVP STA (19:39)
[2022-09-01 19:44] LABS: BASOPHILS % (AUTO) 0.4 %; EOSINOPHILS # (AUTO) 0.2 10^3/uL (0.0-0.7); EOSINOPHILS % (AUTO) 2.5 %; HCT - HEMATOCRIT 36.9 % (37.0-47.0); HGB - HEMOGLOBIN 12.6 g/dL (12.0-16.0); LYMPHOCYTES # (AUTO) 2.9 10^3/uL (1.5-3.5); LYMPHOCYTES % (AUTO) 40.1 %; MEAN CORPUSCULAR HEMOGLOBIN 30.5 pg (27.0-31.0); MEAN CORPUSCULAR HGB CONC 34.1 g/dL (32.0-36.0); MEAN CORPUSCULAR VOLUME 89.3 fL (81.0-99.0); MEAN PLATELET VOLUME 9.9 fL (7.9-10.8); MONOCYTES # (AUTO) 0.5 10^3/uL (0.0-1.0); MONOCYTES % (AUTO) 7.5 %; NEUTROPHILS # (AUTO) 3.6 10^3/uL (1.5-6.6); NEUTROPHILS % (AUTO) 49.2 %; PLT - PLATELET COUNT 252 10^3/uL (130-450); RED BLOOD COUNT 4.13 10^6/uL (4.20-5.40); RED CELL DISTRIBUTION WIDTH 12.5 % (12.0-15.0); WHITE BLOOD COUNT 7.2 x10^3/uL (4.8-10.8)
[2022-09-01] MEDS ORDERED: HYDROmorphone 1 MG/ML CARPUJECT IVP STA (21:13)
[2022-09-01 21:19] VITALS: BP 116/71
== END 2022-09-01 21:36 | disposition home or self-care (01) ==
LOC: ED 18:50
DX: K92.0 Hematemesis (principal)
CPT/HCPCS: 36415; 80053; 81003; 81025; 83690; 85025; 96374; 96375; 99283; 99284; J1170; 81001; 87086

== ENCOUNTER 2022-09-24 15:39 | Outpatient (CLI) | payer MEDICAID | END 2022-09-24 15:40 | disposition critical access hospital (66) | LOC: EMS 15:39 | DX: R06.02 Shortness of breath (principal); R09.89 Other specified symptoms and signs involving the circulatory and respiratory systems; L29.9 Pruritus, unspecified; T36.8X5A Adverse effect of other systemic antibiotics, initial encounter | CPT/HCPCS: A0425; A0427; A0999 ==

== ENCOUNTER 2022-09-24 15:59 | Emergency (ER) | payer MEDICAID ==
[2022-09-24] MEDS ORDERED: methylPREDNISolone SUCCINATE 125 MG/2 ML VIAL IVP STA (16:54)
--- NOTE | 2022-09-24 17:05 | ED Physician Documentation ---
History of Present Illness - Stated complaint Stated Complaint: ALLERGIC REACTION - Chief complaint Chief Complaint: Allergic Rx - History obtained from History obtained from: Patient, EMS - History of Present Illness Timing: Today Pain level max: 2 Pain level now: 2 - Additonal information Additional information: Patient is a 27-year-old female who presents to the emergency department stating that she feels like she is having allergic reaction. She started on fosfomycin today. She states that her throat began to feel itchy and tight. She states that she took her epinephrine pen and a dose of Benadryl. She states that her throat still felt tight so she called 911 and EMS gave her another dose of epin ephrine. No steroids were given. Patient is currently feeling better. 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: Hysterectomy, Oophrectomy - Present Medications Home Medications: Ambulatory Orders Medication Instructions Recorded Confirmed Diazepam [Valium] 10 mg PO QID 12/30/20 02/26/22 Sertraline HCl 200 mg PO DAILY 12/30/20 02/26/22 traMADol [Ultram] 100 mg PO BID 12/30/20 02/26/22 QUEtiapine [SEROquel] 1 tab PO DAILY 02/27/21 02/26/22 lamoTRIgine [LaMICtal] 200 mg PO DAILY 02/27/21 02/26/22 metFORMIN [Glucophage] 1 tab PO BID 02/27/21 02/26/22 haloperidoL [Haldol] 0.5 mg PO BID PRN #20 tablet 07/28/21 02/26/22 Diazepam [Valium] 10 mg PO QID #60 tablet 02/26/22 haloperidoL [Haldol] 0.5 mg PO BID PRN #20 tablet 02/26/22 Diazepam [Valium] 10 mg PO TID #40 tablet 03/08/22 Tramadol HCl [Ultram] 50 mg PO QID PRN #40 tablet 03/08/22 traMADol [Ultram] 100 mg PO Q6H PRN #14 tablet 04/04/22 HYDROmorphone [Dilaudid] 1 - 2 tab PO Q4H PRN #15 tablet 05/21/22 Omeprazole 40 mg PO DAILY #30 cap 05/21/22 Lactulose [Generlac] 10 gm PO QID PRN #150 ml 06/08/22 Oxycodone HCl/Acetaminophen 1 - 2 each PO Q6H PRN #10 tablet 06/08/22 [Percocet 5-325 mg Tablet] bisacodyL [Dulcolax] 10 mg PO BID #15 tablet 06/08/22 haloperidoL [Haldol] 0.5 mg PO BID PRN #8 tablet 08/20/22 predniSONE [Deltasone] 40 mg PO DAILY #10 tablet 09/24/22 - Allergies Allergies/Adverse Reactions: Allergies Allergy/AdvReac Type Severity Reaction Status Date / Time adhesive Allergy Rash Verified 09/24/22 16:08 Cephalosporins Allergy Hives Verified 09/24/22 16:08 Iodinated Contrast Media Allergy Anaphylaxis Verified 09/24/22 16:08 latex Allergy Rash Verified 09/24/22 16:08 lidocaine Allergy Unknown Verified 09/24/22 16:08 metoclopramide [From Reglan] Allergy Anaphylaxis Verified 09/24/22 16:08 Penicillins Allergy Hives Verified 09/24/22 16:08 prochlorperazine Allergy Anaphylaxis Verified 09/24/22 16:08 [From Compazine] all antibiotic except Allergy Anaphylaxis Uncoded 09/24/22 16:08 levaquin - Social History Does the pt smoke?: No Smoking Status: Never smoker Does the pt drink ETOH?: No Does the pt have substance abuse?: No - Immunizations Immunizations are current?: Yes PD ED PE NORMAL - Vitals Vital signs reviewed: Yes - General General: Alert and oriented X 3, No acute distress - HEENT HEENT: PERRL, Ears normal, Moist mucous membranes, Pharynx benign - Neck Neck: Supple, no meningeal sign - Cardiac Cardiac: RRR, Strong equal pulses - Respiratory Respiratory: No respiratory distress, Clear bilaterally - Abdomen Abdomen: Soft, Non tender, Non distended - Derm Derm: Warm and dry, No rash - Extremities Extremities: No edema, No calf tenderness / cord - Neuro Neuro: Alert and oriented X 3, 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 Given solumedrol, benadryl IV and oral prednisone here. Monitored in the ER for over 2 hours post epinephrine with no return of symptoms. Normal speech. No stridor. No wheezing. Normal phonation. No trismus. No further reaction here. Will place on prednisone for home. Patient has epi pens at home and refills. Patient counseled regarding signs and symptoms for which I believe an urgent reevaluation would be necessary. Patient with good understanding of and agreement to plan and is comfortable going home at this time. Departure - Departure Disposition: 01 Home, Self Care Clinical Impression: Allergic reaction Qualifiers: Encounter type: initial encounter Qualified Code(s): T78.40XA - Allergy, unspecified, initial encounter Condition: Good Instructions: ED Drug React Allergic Follow-Up: NIKOLAS GARDNER ARNP [Primary Care Provider] - Within 1 week Prescriptions: predniSONE [Deltasone] 40 mg PO DAILY #10 tablet Comments: Please take the steroids until gone. You can use Benadryl at home as well. Your prescription was sent to [facility] in [place]. You are allergic to fosfomycin. Please stop taking this. Please return if you worsen. Discharge Date/Time: 09/24/22 18:48
[2022-09-24] MEDS ORDERED: diphenhydrAMINE INJ 50 MG/ML VIAL IVP STA (18:11)
[2022-09-24 18:18] VITALS: BP 138/51
[2022-09-24] MEDS ORDERED: predniSONE 20 MG TABLET PO STA (18:37)
== END 2022-09-24 18:48 | disposition home or self-care (01) ==
LOC: EDUNIT# → ED 15:59
DX: J02.9 Acute pharyngitis, unspecified (principal); T36.8X5A Adverse effect of other systemic antibiotics, initial encounter
CPT/HCPCS: 96374; 96375; 99283; 99284; J1200; J7512

== ENCOUNTER 2022-10-16 17:36 | Outpatient (CLI) | payer MEDICAID | END 2022-10-16 17:37 | disposition critical access hospital (66) | LOC: EMS 17:36 | DX: S01.111A Laceration without foreign body of right eyelid and periocular area, initial encounter (principal); W18.39XA Other fall on same level, initial encounter; Y92.002 Bathroom of unspecified non-institutional (private) residence as the place of occurrence of the external cause; R29.6 Repeated falls; R56.9 Unspecified convulsions; R11.2 Nausea with vomiting, unspecified; R42 Dizziness and giddiness; R51.9 Headache, unspecified; R10.11 Right upper quadrant pain | CPT/HCPCS: A0425; A0427; A0999 ==

== ENCOUNTER 2022-10-16 17:54 | Emergency (ER) | payer MEDICAID ==
[2022-10-16 18:37] LABS: BASOPHILS % (AUTO) 0.3 %; EOSINOPHILS # (AUTO) 0.1 10^3/uL (0.0-0.7); EOSINOPHILS % (AUTO) 0.8 %; HGB - HEMOGLOBIN 13.4 g/dL (12.0-16.0); LYMPHOCYTES # (AUTO) 2.4 10^3/uL (1.5-3.5); LYMPHOCYTES % (AUTO) 30.4 %; MEAN CORPUSCULAR HEMOGLOBIN 30.6 pg (27.0-31.0); MEAN CORPUSCULAR HGB CONC 33.5 g/dL (32.0-36.0); MEAN CORPUSCULAR VOLUME 91.3 fL (81.0-99.0); MEAN PLATELET VOLUME 10.2 fL (7.9-10.8); MONOCYTES # (AUTO) 0.7 10^3/uL (0.0-1.0); MONOCYTES % (AUTO) 9.1 %; NEUTROPHILS # (AUTO) 4.7 10^3/uL (1.5-6.6); NEUTROPHILS % (AUTO) 59.3 %; PLT - PLATELET COUNT 230 10^3/uL (130-450); RED BLOOD COUNT 4.38 10^6/uL (4.20-5.40); RED CELL DISTRIBUTION WIDTH 12.1 % (12.0-15.0); WHITE BLOOD COUNT 7.9 x10^3/uL (4.8-10.8)
[2022-10-16] MEDS ORDERED: SODIUM CHLORIDE 0.9% 1,000 ML IV STA (18:39)
[2022-10-16] MEDS ORDERED: HYDROmorphone 1 MG/ML CARPUJECT IVP STA ×2 (18:39→19:26)
[2022-10-16 18:53] LABS: ALBUMIN 4.1 g/dL (3.2-5.5); ALBUMIN/GLOBULIN RATIO 1.5 (1.0-2.2); CALCIUM 8.5 mg/dL (8.5-10.3); CREATININE 0.9 mg/dL (0.4-1.0); POTASSIUM 3.9 mmol/L (3.5-5.0); TOTAL PROTEIN 6.8 g/dL (6.7-8.2)
[2022-10-16] MEDS ORDERED: ONDANSETRON 4 MG/2 ML VIAL IVP STA (19:25)
--- NOTE | 2022-10-16 19:28 | CT Report ---
PROCEDURE: HEAD WO INDICATIONS: fall, head injury TECHNIQUE: Noncontrast 4.5 mm thick angled axial sections acquired from the foramen magnum to the vertex. For r adiation dose reduction, the following was used: automated exposure control, adjustment of mA and/or kV according to patient size. COMPARISON: None. FINDINGS: Image quality: Excellent. CSF spaces: Basal cisterns are patent. No extra-axial fluid collections. Ventricles are normal in size and shape. Brain: No midline shift. No intracranial masses or hemorrhage. [place]-white matter interface is norm al. Skull and face: Calvarium and visualized facial bones are intact, without suspicious lesions. Sinuses: Visualized sinuses and mastoids are clear. IMPRESSION: No acute intracranial abnormality. Reviewed by: Ac Sosa MD on 10/16/2022 7:26 PM PDT Approved by: Ac Sosa MD on 10/16/2022 7:26 PM PDT Station ID: [id number]
[2022-10-16 20:01] LABS: BILIRUBIN,URINE NEGATIVE (NEGATIVE); GLUCOSE, URINE (UA) NEGATIVE (NEGATIVE); KETONES,URINE (UA) NEGATIVE (NEGATIVE); LEUKOCYTE ESTERASE, URINE NEGATIVE (NEGATIVE); NITRITE,URINE NEGATIVE (NEGATIVE); OCCULT BLOOD,URINE NEGATIVE (NEGATIVE); PROTEIN,URINE NEGATIVE (NEGATIVE); UROBILINOGEN,URINE 0.2 (NORMAL) E.U./dL (NORMAL)
[2022-10-16 20:03] LABS: CLARITY,URINE CLEAR (CLEAR)
[2022-10-16] MEDS ORDERED: FAMOTIDINE 20 MG TABLET PO STA (20:12)
[2022-10-16] MEDS ORDERED: PANTOPRAZOLE 40 MG VIAL IVP STA (20:12)
[2022-10-16] MEDS ORDERED: SUCRALFATE 1 GM/10 ML UDC PO STA (20:12)
[2022-10-16] MEDS ORDERED: MAG HYDROX/AL HYDROX/SIMETH 30 ML UDC PO STA (20:12)
[2022-10-16] MEDS ORDERED: PROMETHAZINE INJ 25 MG in SODIUM CHLORIDE 0.9% 50 ML IV STA (20:59)
[2022-10-16] MEDS ORDERED: KETOROLAC 30 MG/ML VIAL IVP STA (20:59)
--- NOTE | 2022-10-16 21:01 | ED Physician Documentation ---
History of Present Illness - Stated complaint Stated Complaint: FALL/N/V - Chief complaint Chief Complaint: Abd Pain - History obtained from History obtained from: Patient, Caregiver - History of Present Illness Pain level max: 6 Pain level now: 5 - Additonal information Additional information: Patient is a 27-year-old female who presents to the emergency department stating that she was at home today and has had nausea and vomiting for the past several days which is not uncommon for her. She felt lightheaded today, tripped fell and struck her head. Has a laceration near the right eyebrow. No loss of consciousness. No seizure activity. Worse with movement, better with rest. Tetanus up-to-date. She states that she has had continued hematemesis. She states she has been worked up for this extensively with no cause found. Currently she states that she feels dehydrated and has a headache from the fall. No neck or back pain. Review of Systems Constitutional: denies: Fever Nose: denies: Rhinorrhea / runny nose, Congestion Respiratory: denies: Cough GI: reports: Vomiting, Hematemesis. 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 TECHNICIAN: Hysterectomy, Oophrectomy - Present Medications Home Medications: Ambulatory Orders Medication Instructions Recorded Confirmed Diazepam [Valium] 10 mg PO QID 12/30/20 02/26/22 Sertraline HCl 200 mg PO DAILY 12/30/20 02/26/22 traMADol [Ultram] 100 mg PO BID 12/30/20 02/26/22 QUEtiapine [SEROquel] 1 tab PO DAILY 02/27/21 02/26/22 lamoTRIgine [LaMICtal] 200 mg PO DAILY 02/27/21 02/26/22 metFORMIN [Glucophage] 1 tab PO BID 02/27/21 02/26/22 haloperidoL [Haldol] 0.5 mg PO BID PRN #20 tablet 07/28/21 02/26/22 Diazepam [Valium] 10 mg PO QID #60 tablet 02/26/22 haloperidoL [Haldol] 0.5 mg PO BID PRN #20 tablet 02/26/22 Diazepam [Valium] 10 mg PO TID #40 tablet 03/08/22 Tramadol HCl [Ultram] 50 mg PO QID PRN #40 tablet 03/08/22 traMADol [Ultram] 100 mg PO Q6H PRN #14 tablet 04/04/22 HYDROmorphone [Dilaudid] 1 - 2 tab PO Q4H PRN #15 tablet 05/21/22 Omeprazole 40 mg PO DAILY #30 cap 05/21/22 Lactulose [Generlac] 10 gm PO QID PRN #150 ml 06/08/22 Oxycodone HCl/Acetaminophen 1 - 2 each PO Q6H PRN #10 tablet 06/08/22 [Percocet 5-325 mg Tablet] bisacodyL [Dulcolax] 10 mg PO BID #15 tablet 06/08/22 haloperidoL [Haldol] 0.5 mg PO BID PRN #8 tablet 08/20/22 predniSONE [Deltasone] 40 mg PO DAILY #10 tablet 09/24/22 - Allergies Allergies/Adverse Reactions: Allergies Allergy/AdvReac Type Severity Reaction Status Date / Time adhesive Allergy Rash Verified 10/16/22 18:04 Cephalosporins Allergy Hives Verified 10/16/22 18:04 Iodinated Contrast Media Allergy Anaphylaxis Verified 10/16/22 18:04 latex Allergy Rash Verified 10/16/22 18:04 lidocaine Allergy Unknown Verified 10/16/22 18:04 metoclopramide [From Reglan] Allergy Anaphylaxis Verified 10/16/22 18:04 Penicillins Allergy Hives Verified 10/16/22 18:04 prochlorperazine Allergy Anaphylaxis Verified 10/16/22 18:04 [From Compazine] all antibiotic except Allergy Anaphylaxis Uncoded 10/16/22 18:04 levaquin - Social History Does the pt smoke?: No Smoking Status: Never smoker Does the pt drink ETOH?: No Does the pt have substance abuse?: No - Immunizations Immunizations are current?: Yes PD ED PE NORMAL - Vitals Vital signs reviewed: Yes - General General: Alert and oriented X 3, No acute distress - HEENT HEENT: PERRL, EOMI, Moist mucous membranes, Other (small laceration to the lateral R eyebrow) - Neck Neck: Supple, no meningeal sign, No bony TTP - Cardiac Cardiac: RRR, Strong equal pulses - Respiratory Respiratory: No respiratory distress, Clear bilaterally - Abdomen Abdomen: Soft, Non tender, Non distended - Back Back: No spinal TTP - Derm Derm: Warm and dry - Extremities Extremities: No edema - Neuro Neuro: Alert and oriented X 3, policy specialist 2-12 intact, No motor deficit, No sensory deficit, Normal speech Eye Opening: Spontaneous Motor: Obeys Commands Verbal: Oriented GCS Score: 15 - Psych Psych: Normal mood, Normal affect Results - Vitals Vitals: Vital Signs - 24 hr 10/16/22 10/16/22 10/16/22 18:00 20:57 22:02 Temperature 36.9 C Heart Rate 71 60 70 Respiratory 19 16 16 Rate Blood Pressure 125/77 112/71 121/76 O2 Saturation 98 100 100 Oxygen O2 Source Room air - Labs Labs: Laboratory Tests 10/16/22 10/16/22 10/16/22 18:35 18:35 19:43 WBC 7.9 RBC 4.38 Hgb 13.4 Hct 40.0 MCV 91.3 MCH 30.6 MCHC 33.5 RDW 12.1 Plt Count 230 MPV 10.2 Neut # (Auto) 4.7 Lymph # (Auto) 2.4 [place] # (Auto) 0.7 Eos # (Auto) 0.1 Baso # (Auto) 0.0 Absolute Nucleated RBC 0.00 Nucleated RBC % 0.0 Sodium 136 Potassium 3.9 Chloride 103 Carbon Dioxide 24 Anion Gap 9.0 BUN 13 Creatinine 0.9 Estimated GFR (MDRD) 74 L Glucose 85 Calcium 8.5 Total Bilirubin 1.0 AST 13 ALT 13 Alkaline Phosphatase 38 L Total Protein 6.8 Albumin 4.1 Globulin 2.7 Albumin/Globulin Ratio 1.5 Lipase 29 Urine Color YELLOW Urine Clarity CLEAR Urine pH 6.0 Ur Specific [place] <=1.005 Urine Protein NEGATIVE Urine Glucose (UA) NEGATIVE Urine Ketones NEGATIVE Urine Occult Blood NEGATIVE Urine Nitrite NEGATIVE Urine Bilirubin NEGATIVE Urine Urobilinogen 0.2 (NORMAL) Ur Leukocyte Esterase NEGATIVE Ur Microscopic Review NOT INDICATED Urine Culture Comments NOT INDICATED - Rads (name of study) head CT Relevant Findings:: Final report received, See rad report Procedures - Laceration (location) R eyebrow, lateral Length in cm: 2 Wound type: Linear, Superficial, Clean Neurovascular status: Sensory intact, Motor intact, Vascular intact Wound preparation: Irrigated copiously NS, Wound explored, To the base Skin layer closure: Dermabond Other: Patient tolerated well, No complications, Neurovascular intact, Tetanus UTD PD Medical Decision Making - ED course Complexity details: reviewed results, re-evaluated patient, considered differential, d/w patient ED course: CBC, ER abdominal panel and urinalysis do not show any acute abnormalities. Head CT does not show any acute abnormalities. She was given a dose of Pepcid, IV Dilaudid, IV Toradol, Maalox and IV Protonix as well as IV Phenergan. Nausea and vomiting resolved. No acute findings on head CT. Laceration repaired with Dermabond. GCS 15. We will have the patient follow-up with her doctor for further care. No indication for hospitalization at this time. Patient ambulating without any difficulty. Patient counseled regarding signs and symptoms for which I believe and urgent re-evaluation would be necessary. Patient with good understanding of and agreement to plan and is comfortable going home at this time This document was made in part using voice recognition software. While efforts are made to proofread this document, sound alike and grammatical errors may occur. Departure - Departure Disposition: 01 Home, Self Care Clinical Impression: Closed head injury Qualifiers: Encounter type: initial encounter Qualified Code(s): S09.90XA - Unspecified injury of head, initial encounter Facial laceration Qualifiers: Encounter type: initial encounter Qualified Code(s): S01.81XA - Laceration without foreign body of other part of head, initial encounter Vomiting Qualifiers: Vomiting type: unspecified Nausea presence: with nausea Qualified Code(s): R11.2 - Nausea with vomiting, unspecified Condition: Good Instructions: ED Head Injury Closed, ED Laceration Facial Skin Glue, ED Nausea Vomiting Follow-Up: NIKOLAS GARDNER ARNP [Primary Care Provider] - Within 1 week Comments: Please follow-up with your doctor for further care. The glue will dissolve on its own. Do not apply any ointment as this may dissolve the glue. Your head CT and laboratory testing did not show any acute abnormalities tonight. Please return if you worsen. Discharge Date/Time: 10/16/22 22:02
[2022-10-16] MEDS ORDERED: PROMETHAZINE 25 MG/1 ML VIAL ONE (21:07)
[2022-10-16] MEDS ORDERED: oxyCODONE 5 MG TABLET PO STA (21:50)
[2022-10-16 22:03] VITALS: BP 121/76
== END 2022-10-16 22:02 | disposition home or self-care (01) ==
LOC: EDUNIT# → ED 17:54
DX: S01.111A Laceration without foreign body of right eyelid and periocular area, initial encounter (principal); S09.90XA Unspecified injury of head, initial encounter; W01.10XA Fall on same level from slipping, tripping and stumbling with subsequent striking against unspecified object, initial encounter
CPT/HCPCS: 12011; 36415; 70450; 80053; 81003; 83690; 85025; 96365; 96375; 96376; 99284; A9270; J1170; J7040; 81001; 87086

== ENCOUNTER 2022-10-25 19:28 | Outpatient (CLI) | payer MEDICAID | END 2022-10-25 23:59 | disposition critical access hospital (66) | LOC: EMS 19:28 | DX: K92.0 Hematemesis (principal); R55 Syncope and collapse; S00.91XA Abrasion of unspecified part of head, initial encounter; W18.39XA Other fall on same level, initial encounter; Y92.000 Kitchen of unspecified non-institutional (private) residence as the place of occurrence of the external cause | CPT/HCPCS: A0425; A0427; A0999 ==

== ENCOUNTER 2022-11-03 18:38 | Outpatient (CLI) | payer MEDICAID | END 2022-11-03 18:39 | disposition critical access hospital (66) | LOC: EMS 18:38 | DX: K92.0 Hematemesis (principal); R10.12 Left upper quadrant pain | CPT/HCPCS: A0425; A0429; A0999 ==

== ENCOUNTER 2022-11-03 18:54 | Emergency (ER) | payer MEDICAID ==
[2022-11-03 19:05] VITALS: BP 129/76
[2022-11-03] MEDS ORDERED: PANTOPRAZOLE 40 MG VIAL IVP STA (19:07)
[2022-11-03] MEDS ORDERED: FAMOTIDINE 20 MG/2 ML VIAL IVP STA (19:08)
--- NOTE | 2022-11-03 19:16 | ED Physician Documentation ---
History of Present Illness - Stated complaint Stated Complaint: ABD PX - Chief complaint Chief Complaint: Abd Pain - Additonal information Additional information: 27-year-old female presents emergency department for evaluation of upper epigas tric pain and vomiting blood. She reports that she underwent an EGD through [facility] in late September. At that time She reports she was diagnosed with erosive esophagitis as well as gastritis. She was started on Protonix and Carafate. She finds she has persistent pain despite taking this. She is also taking oxycodone which she does not find effective. Reports today she vomited bright red blood. No fevers. 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: Ovarian cysts : Kidney stones Psych: Post traumatic stress disorder - Past Surgical History Past Surgical History: Yes General: Cholecystectomy, Appendectomy /WOOL TAMPER: Hysterectomy, Oophrectomy - Present Medications Home Medications: Ambulatory Orders Medication Instructions Recorded Confirmed Diazepam [Valium] 10 mg PO QID 12/30/20 11/03/22 Sertraline HCl 100 mg PO DAILY 12/30/20 11/03/22 QUEtiapine [SEROquel] 25 mg PO DAILY 02/27/21 11/03/22 lamoTRIgine [LaMICtal] 200 mg PO HS 02/27/21 11/03/22 Omeprazole 40 mg PO DAILY #30 cap 05/21/22 11/03/22 Metoclopramide [Reglan] 10 mg PO [facility] 11/03/22 11/03/22 Oxycodone HCl 10 mg PO TID PRN 11/03/22 11/03/22 Sucralfate [Carafate] 1 tablet PO [facility] 11/03/22 11/03/22 Trazodone HCl 100 mg ORAL HS 11/03/22 11/03/22 - Allergies Allergies/Adverse Reactions: Allergies Allergy/AdvReac Type Severity Reaction Status Date / Time adhesive Allergy Rash Verified 11/03/22 19:01 Cephalosporins Allergy Hives Verified 11/03/22 19:01 Iodinated Contrast Media Allergy Anaphylaxis Verified 11/03/22 19:01 latex Allergy Rash Verified 11/03/22 19:01 lidocaine Allergy Unknown Verified 11/03/22 19:01 metoclopramide [From Reglan] Allergy Anaphylaxis Verified 11/03/22 19:01 Penicillins Allergy Hives Verified 11/03/22 19:01 prochlorperazine Allergy Anaphylaxis Verified 11/03/22 19:01 [From Compazine] all antibiotic except Allergy Anaphylaxis Uncoded 11/03/22 19:01 levaquin - Social History Does the pt smoke?: No Smoking Status: Never smoker Does the pt drink ETOH?: No Does the pt have substance abuse?: No - Immunizations Immunizations are current?: Yes PD ED PE NORMAL - General General: Alert and oriented X 3, No acute distress. No: Well developed/nourished (Appears older than stated age) - HEENT HEENT: Atraumatic, Moist mucous membranes - Neck Neck: Supple, no meningeal sign - Cardiac Cardiac: RRR, No murmur - Respiratory Respiratory: No respiratory distress, Clear bilaterally - Abdomen Abdomen: Normal bowel sounds, Soft. No: Non tender (Mild epigastric tenderness. Nonperitoneal.) - Back Back: No CVA TTP, No spinal TTP - Derm Derm: Normal color, Warm and dry, No rash - Extremities Extremities: No deformity - Neuro Neuro: Alert and oriented X 3, rv servicer 2-12 intact Eye Opening: Spontaneous Motor: Obeys Commands Verbal: Oriented GCS Score: 15 Results - Vitals Vitals: Vital Signs - 24 hr 11/03/22 11/03/22 19:01 19:04 Temperature 36.5 C 36.5 C Heart Rate 64 64 Respiratory 18 18 Rate Blood Pressure 129/76 129/76 O2 Saturation 100 100 Oxygen O2 Source Room air - Labs Labs: Laboratory Tests 11/03/22 17:15 WBC 9.0 RBC 4.36 Hgb 13.6 Hct 39.8 MCV 91.3 MCH 31.2 H MCHC 34.2 RDW 11.8 L Plt Count 238 MPV 10.5 Neut # (Auto) 5.5 Lymph # (Auto) 2.7 [place] # (Auto) 0.7 Eos # (Auto) 0.1 Baso # (Auto) 0.0 Absolute Nucleated RBC 0.00 Nucleated RBC % 0.0 PD Medical Decision Making - ED course Complexity details: reviewed results, re-evaluated patient, considered differential, d/w patient ED course: 27-year-old female presents to the emergency department for concerns of worsening epigastric abdominal pain. Underwent an EGD in late September at [facility]. Reportedly started on pantoprazole and Carafate. Also is on oxycodone. Despite this she does not have resolution of pain. She is a daily vape pen user. She reported hematemesis this afternoon that she presents to the ER. On presentation she is alert well-appearing though appears older than stated age. She is without fever, tachycardia or hypotension. Her abdominal exam shows some epigastric tenderness though nonperitoneal. I did obtain a CBC and electrolytes. Per my interpretation no acute worrisome findings. There is no worrisome anemia. Given the hemodynamic stability as well as the appropriate hemoglobin I have low suspicion for a gastric perforation. I deferred doing a stool guaiac as it is most likely going to be positive given the history. Her surgical history includes previous cholecystectomy, hysterectomy and appendectomy. Given the lack of these pertinent abdominal organs I deferred ct imaging today. Clinically pt is non peritoneal, doubt gastritis Unfortunately the patient does receive large quantities of oxycodone. At this point I believe she has developed a tolerance. I also note many allergies in her chart limiting our ability to help manage her pain. She was given a dose of Protonix and Pepcid here in the ER. I discussed with her that the resolution of gastritis can often take weeks. She should continue to follow closely with her gastroenterology team. I have advised her to add Pepcid to her medication regimen. Avoid spicy and citric foods. She is also encouraged to eat small frequent meals and a bland diet such as the brat diet. Departure - Departure Disposition: 01 Home, Self Care Clinical Impression: Epigastric abdominal pain, History of gastritis Condition: Stable Record reviewed to determine appropriate education?: Yes Comments: As discussed at the bedside gastritis can take many weeks to heal. It is important that you continue to take the Protonix and the Carafate as already prescribed. I do recommend that you add Pepcid 20 mg twice daily to your regimen as well. I do recommend that you stop vaping. Nicotine use can worsen gastritis. Avoid spicy foods and citric foods. You may find some relief of the gastritis by eating soft bland foods. Over time this can actually help reduce the epigastric pain. As we discussed your labs today in the emergency department are essentially normal and showed no worrisome findings. Given your hemodynamic stability and your abdominal exam I have lower suspicion for an worrisome process such as a perforation. Please discuss this ED visit with your primary care provider. Return if worsening
[2022-11-03] MEDS ORDERED: SODIUM CHLORIDE 0.9% 1,000 ML IV STA (19:17)
[2022-11-03 19:24] LABS: BASOPHILS % (AUTO) 0.2 %; EOSINOPHILS # (AUTO) 0.1 10^3/uL (0.0-0.7); EOSINOPHILS % (AUTO) 0.9 %; HCT - HEMATOCRIT 39.8 % (37.0-47.0); HGB - HEMOGLOBIN 13.6 g/dL (12.0-16.0); LYMPHOCYTES # (AUTO) 2.7 10^3/uL (1.5-3.5); LYMPHOCYTES % (AUTO) 29.7 %; MEAN CORPUSCULAR HEMOGLOBIN 31.2 pg (27.0-31.0); MEAN CORPUSCULAR HGB CONC 34.2 g/dL (32.0-36.0); MEAN CORPUSCULAR VOLUME 91.3 fL (81.0-99.0); MEAN PLATELET VOLUME 10.5 fL (7.9-10.8); MONOCYTES # (AUTO) 0.7 10^3/uL (0.0-1.0); MONOCYTES % (AUTO) 7.8 %; NEUTROPHILS # (AUTO) 5.5 10^3/uL (1.5-6.6); NEUTROPHILS % (AUTO) 61.3 %; PLT - PLATELET COUNT 238 10^3/uL (130-450); RED BLOOD COUNT 4.36 10^6/uL (4.20-5.40); RED CELL DISTRIBUTION WIDTH 11.8 % (12.0-15.0)
[2022-11-03 19:42] LABS: ALBUMIN 4.3 g/dL (3.2-5.5); ALBUMIN/GLOBULIN RATIO 1.5 (1.0-2.2); BILIRUBIN,TOTAL 0.6 mg/dL (0.2-1.0); CALCIUM 9.1 mg/dL (8.5-10.3); CREATININE 0.9 mg/dL (0.4-1.0); TOTAL PROTEIN 7.1 g/dL (6.7-8.2)
== END 2022-11-03 20:04 | disposition home or self-care (01) ==
LOC: EDUNIT# → EDBD → ED 18:54
DX: R10.13 Epigastric pain (principal)
CPT/HCPCS: 36415; 80053; 83690; 84702; 85025; 96374; 96375; 99283

== ENCOUNTER 2022-11-21 15:21 | Outpatient (CLI) | payer MEDICAID | END 2022-11-21 23:59 | disposition critical access hospital (66) | LOC: EMS 15:21 | DX: R55 Syncope and collapse (principal); K92.0 Hematemesis; S01.81XA Laceration without foreign body of other part of head, initial encounter; M24.412 Recurrent dislocation, left shoulder; R10.30 Lower abdominal pain, unspecified; W18.39XA Other fall on same level, initial encounter; Y92.008 Other place in unspecified non-institutional (private) residence as the place of occurrence of the external cause | CPT/HCPCS: A0425; A0429; A0999 ==

== ENCOUNTER 2022-11-25 16:09 | Emergency (ER) | payer MEDICAID ==
[2022-11-25] MEDS ORDERED: oxyCODONE 5 MG TABLET PO STA (16:38)
--- OUTSIDE RECORDS SUMMARY | 2022-11-25 16:49 | EXTERNAL MEDICAL SUMMARY RPT | Continuity of Care Document ---
:1995 Author Organization [place] Address [address] [place] [address] Phone Care Team Providers Name Role Phone Estevan Castorena Unavailable Unavailable Allergies and Intolerances date description facility type (no date) Mild [facility] (unknown) (no date) Iodinated Contrast Media [facility] ([facility]) (no date) Penicillins [facility] (unknown) (no date) adhesive [facility] (unknown) (no date) amoxicillin [facility] (unknown) (no date) cephalexin [facility] (unknown) (no date) ciprofloxacin [facility] (unknown) (no date) clindamycin [facility] (unknown) (no date) doxycycline [facility] (unknown) (no date) hydrocodone [facility] (unknown) (no date) iodine [facility] (unknown) (no date) latex [facility] (unknown) (no date) lidocaine [facility] (unknown) (no date) metoclopramide [facility] (unknown) (no date) shellfish derived [facility] (unknown) (no date) sulfamethoxazole [facility] (unknown) (no date) trimethoprim [facility] (unknown) Encounters No information. Functional Status No information. Immunizations No information. Medications date description facility 2022-11-16 00:00 Levofloxacin [facility] Problems date description facility 2022-11-16 00:00 Urinary tract infection [facility] 2022-11-21 00:00 Vomiting [facility] 2022-11-21 00:00 Abrasion of forehead [facility] 2022-11-21 00:00 Shoulder separation [facility] Procedures date description facility 2022-11-15 00:00 Computed tomography of abdomen and pelv is [facility] without contrast 2022-11-21 00:00 XR elbow left, 3+ views [facility] 2022-11-21 00:00 XR shoulder left, 2+ views [facility] 2022-11-21 00:00 Computed tomography of head or brain wi [facility] contrast 2022-11-21 00:00 X-ray of chest, single view [facility] 2022-11-21 00:00 Computed tomography of cervical spine w [facility] contrast Results/Labs test date author facility value unit interpret ation Result panel 1 ([facility] (no [facility]) Result panel 2 (unknown) (no date) [facility] Result panel 3 (unknown) (no date) ([facility] Result panel 4 (unknown) (no date) ([facility] Result panel 5 (unknown) (no date) (unknown[facility] Result panel 6 (unknown) (no date) (unknown[facility] Result panel 7 (unknown) (no date) (unknown[facility] Result panel 8 (unknown) (no date) (unknown[facility] Result panel 9 (unknown) (no date) (unknown[facility] Result panel 10 (unknown) (no date) (unknown[facility] Result panel 11 (unknown) (no date) (unknown[facility] Result panel 12 (unknown) (no date) (unknown[facility] Result panel 13 (unknown) (no date) (unknown[facility] Result panel 14 (unknown) (no date) (unknown[facility] Result panel 15 (unknown) (no date) (unknown[facility] Result panel 16 (unknown) (no date) (unknown[facility] Result panel 17 (unknown) (no date) (unknown[facility] Result panel 18 (unknown) (no date) (unknown[facility] Result panel 19 (unknown) (no date) (unknown[facility]) Result panel 20 (unknown) (no date) (unknown[facility] Result panel 21 (unknown) (no date) (unknown[facility] Result panel 22 (unknown) (no date) (unknown[facility] Result panel 23 (unknown) (no date) (unknown[facility] Result panel 24 (unknown) (no date) (unknown[facility]) Result panel 25 (unknown) (no date) (unknown[facility] Result panel 26 (unknown) (no date) (unknown[facility] Result panel 27 (unknown) (no date) (unknown[facility]) Result panel 28 (unknown) (no date) (unknown[facility] Result panel 29 (unknown) (no date) (unknown[facility] Result panel 30 (unknown) (no date) (unknown[facility] Result panel 31 (unknown) (no date) (unknown[facility] Result panel 32 (unknown) (no date) (unknown[facility]) Result panel 33 (unknown) (no date) (unknown[facility] Result panel 34 (unknown) (no date) (unknown[facility]) Result panel 35 (unknown) (no date) (unknown[facility] Result panel 36 (unknown) (no date) (unknown[facility]) Result panel 37 (unknown) (no date) (unknown[facility] Result panel 38 (unknown) (no date) (unknown[facility] Result panel 39 (unknown) (no date) (unknown[facility]) Result panel 40 (unknown) (no date) (unknown[facility] Result panel 41 (unknown) (no date) (unknown[facility] Result panel 42 (unknown) (no date) (unknown[facility] Result panel 43 (unknown) (no date) (unknown[facility] Result panel 44 (unknown) (no date) (unknown[facility]) Result panel 45 (unknown) (no date) (unknown[facility]) Result panel 46 (unknown) (no date) (unknown[facility] Result panel 47 (unknown) (no date) (unknown[facility]) Result panel 48 (unknown) (no date) (unknown[facility] Result panel 49 (unknown) (no date) (unknown[facility]) Result panel 50 (unknown) (no date) (unknown[facility] Result panel 51 (unknown) (no date) (unknown[facility]) Result panel 52 (unknown) (no date) (unknown[facility] Result panel 53 (unknown) (no date) (unknown[facility]) Result panel 54 (unknown) (no date) (unknown[facility] Result panel 55 (unknown) (no date) (unknown[facility]) Result panel 56 (unknown) (no date) (unknown[facility]) Result panel 57 (unknown) (no date) (unknown[facility]) Result panel 58 (unknown) (no date) (unknown[facility] Result panel 59 (unknown) (no date) (unknown[facility]) Result panel 60 (unknown) (no date) (unknown[facility] Result panel 61 (unknown) (no date) (unknown[facility]) Result panel 62 (unknown) (no date) (unknown[facility]) Result panel 63 (unknown) (no date) (unknown[facility]) Result panel 64 (unknown) (no date) (unknown[facility]) Result panel 65 (unknown) (no date) (unknown[facility] Result panel 66 (unknown) (no date) (unknown[facility]) Result panel 67 (unknown) (no date) (unknown[facility]) Result panel 68 (unknown) (no date) (unknown[facility]) Result panel 69 (unknown) (no date) (unknown[facility] Result panel 70 (unknown) (no date) (unknown[facility]) Result panel 71 (unknown) (no date) (unknown[facility]) Result panel 72 (unknown) (no date) (unknown[facility]) Result panel 73 (unknown) (no date) (unknown[facility]) Result panel 74 (unknown) (no date) (unknown[facility]) Result panel 75 (unknown) (no date) (unknown[facility]) Result panel 76 (unknown) (no date) (unknown[facility]) Result panel 77 (unknown) (no date) (unknown[facility]) Result panel 78 (unknown) (no date) (unknown[facility]) Result panel 79 (unknown) (no date) (unknown[facility]) Result panel 80 (unknown) (no date) (unknown[facility]) Result panel 81 (unknown) (no date) (unknown[facility]) Result panel 82 (unknown) (no date) (unknown[facility]) Result panel 83 (unknown) (no date) (unknown[facility]) Result panel 84 (unknown) (no date) (unknown[facility]) Result panel 85 (unknown) (no date) (unknown[facility]) Result panel 86 (unknown) (no date) (unknown[facility]) Result panel 87 (unknown) (no date) (unknown[facility]) Result panel 88 (unknown) (no date) (unknown[facility] Result panel 89 (unknown) (no date) (unknown[facility]) Result panel 90 (unknown) (no date) (unknown[facility]) Result panel 91 (unknown) (no date) (unknown[facility]) Result panel 92 (unknown) (no date) (unknown[facility]) Result panel 93 (unknown) (no date) (unknown[facility]) Result panel 94 (unknown) (no date) (unknown[facility]) Result panel 95 (unknown) (no date) (unknown[facility]) Result panel 96 (unknown) (no date) (unknown[facility]) Result panel 97 (unknown) (no date) (unknown[facility]) Result panel 98 (unknown) (no date) (unknown[facility]) Result panel 99 (unknown) (no date) (unknown[facility]) Result panel 100 (unknown) (no date) (unknown[facility]) Result panel 101 (unknown) (no date) (unknown[facility]) Result panel 102 (unknown) (no date) (unknown[facility]) Result panel 103 (unknown) (no date) (unknown[facility]) Result panel 104 (unknown) (no date) (unknown[facility]) Result panel 105 (unknown) (no date) (unknown[facility]) Result panel 106 (unknown) (no date) (unknown[facility]) Result panel 107 (unknown) (no date) (unknown[facility]) Result panel 108 (unknown) (no date) (unknown[facility]) Result panel 109 (unknown) (no date) (unknown[facility]) Result panel 110 (unknown) (no date) (unknown[facility]) Result panel 111 (unknown) (no date) (unknown[facility]) Result panel 112 (unknown) (no date) (unknown[facility]) Result panel 113 (unknown) (no date) (unknown[facility]) Result panel 114 (unknown) (no date) (unknown[facility]) Result panel 115 (unknown) (no date) (unknown[facility]) Result panel 116 (unknown) (no date) (unknown[facility]) Result panel 117 (unknown) (no date) (unknown[facility]) Result panel 118 (unknown) (no date) (unknown[facility] Result panel 119 (unknown) (no date) (unknown[facility]) Result panel 120 (unknown) (no date) (unknown[facility]) Result panel 121 (unknown) (no date) (unknown[facility]) Result panel 122 (unknown) (no date) (unknown[facility]) Result panel 123 (unknown) (no date) (unknown[facility]) Result panel 124 (unknown) (no date) (unknown[facility]) Result panel 125 (unknown) (no date) (unknown[facility]) Result panel 126 (unknown) (no date) (unknown[facility]) Result panel 127 (unknown) (no date) (unknown[facility]) Result panel 128 (unknown) (no date) (unknown[facility]) Result panel 129 (unknown) (no date) (unknown[facility]) Result panel 130 (unknown) (no date) (unknown[facility]) Result panel 131 (unknown) (no date) (unknown[facility]) Result panel 132 (unknown) (no date) (unknown[facility]) Result panel 133 (unknown) (no date) (unknown[facility]) Result panel 134 (unknown) (no date) (unknown[facility]) Result panel 135 (unknown) (no date) (unknown[facility]) Result panel 136 (unknown) (no date) (unknown[facility]) Result panel 137 (unknown) (no date) (unknown[facility]) Result panel 138 (unknown) (no date) (unknown[facility]) Result panel 139 (unknown) (no date) (unknown[facility]) Result panel 140 (unknown) (no date) (unknown[facility]) Result panel 141 (unknown) (no date) (unknown[facility]) Result panel 142 (unknown) (no date) (unknown[facility]) Result panel 143 (unknown) (no date) (unknown[facility]) Result panel 144 (unknown) (no date) (unknown[facility]) Result panel 145 (unknown) (no date) (unknown[facility]) Result panel 146 (unknown) (no date) (unknown[facility]) Result panel 147 (unknown) (no date) (unknown[facility]) Result panel 148 (unknown) (no date) (unknown) [facility]) Result panel 149 (unknown) (no date) (unknown[facility]) Result panel 150 (unknown) (no date) (unknown) [facility]) Result panel 151 (unknown) (no date) (unknown) [facility]) Result panel 152 (unknown) (no date) (unknown[facility]) Result panel 153 (unknown) (no date) (unknown[facility]) Result panel 154 (unknown) (no date) (unknown) [facility]) Result panel 155 (unknown) (no date) (unknown) [facility]) Result panel 156 (unknown) (no date) (unknown) [facility]) Result panel 157 (unknown) (no date) (unknown) [facility]) Result panel 158 (unknown) (no date) (unknown) [facility]) Result panel 159 (unknown) (no date) (unknown) [facility]) Result panel 160 (unknown) (no date) (unknown) [facility]) Result panel 161 (unknown) (no date) (unknown) [facility]) Result panel 162 (unknown) (no date) (unknown) [facility]) Result panel 163 (unknown) (no date) (unknown) [facility]) Result panel 164 (unknown) (no date) (unknown) [facility]) Result panel 165 (unknown) (no date) (unknown) [facility]) Result panel 166 (unknown) (no date) (unknown) [facility]) Result panel 167 (unknown) (no date) (unknown[facility]) Result panel 168 (unknown) (no date) (unknown) [facility]) Result panel 169 (unknown) (no date) (unknown) [facility]) Result panel 170 (unknown) (no date) (unknown) [facility]) Result panel 171 (unknown) (no date) (unknown[facility]) Result panel 172 (unknown) (no date) (unknown[facility]) Result panel 173 (unknown) (no date) (unknown[facility]) Result panel 174 (unknown) (no date) (unknown) [facility]) Result panel 175 (unknown) (no date) (unknown[facility]) Result panel 176 (unknown) (no date) (unknown) [facility]) Result panel 177 (unknown) (no date) (unknown[facility]) Result panel 178 (unknown) (no date) (unknown) [facility]) Result panel 179 (unknown) (no date) (unknown) [facility]) Result panel 180 (unknown) (no date) (unknown[facility]) Result panel 181 (unknown) (no date) (unknown[facility]) Result panel 182 (unknown) (no date) (unknown[facility]) Result panel 183 (unknown) (no date) (unknown[facility] Result panel 184 (unknown) (no date) (unknown[facility]) Result panel 185 (unknown) (no date) (unknown[facility]) Result panel 186 (unknown) (no date) (unknown[facility]) Result panel 187 (unknown) (no date) (unknown[facility]) Result panel 188 (unknown) (no date) (unknown) [facility]) Result panel 189 (unknown) (no date) (unknown) [facility]) Result panel 190 (unknown) (no date) (unknown[facility] Result panel 191 (unknown) (no date) (unknown[facility]) Result panel 192 (unknown) (no date) (unknown) [facility]) Result panel 193 (unknown) (no date) (unknown[facility]) Result panel 194 (unknown) (no date) (unknown) [facility] Result panel 195 (unknown) (no date) (unknown) [facility]) Result panel 196 (unknown) (no date) (unknown) [facility]) Result panel 197 (unknown) (no date) (unknown) [facility]) Result panel 198 (unknown) (no date) (unknown) [facility]) Result panel 199 (unknown) (no date) (unknown) [facility] Result panel 200 (unknown) (no date) (unknown) [facility]) Result panel 201 (unknown) (no date) (unknown) [facility]) Result panel 202 (unknown) (no date) (unknown) [facility]) Result panel 203 (unknown) (no date) (unknown) [facility] Result panel 204 (unknown) (no date) (unknown[facility] Result panel 205 (unknown) (no date) (unknown) [facility] Result panel 206 (unknown) (no date) (unknown) [facility]) Result panel 207 (unknown) (no date) (unknown) [facility]) Result panel 208 (unknown) (no date) (unknown) [facility] Result panel 209 (unknown) (no date) (unknown) [facility]) Result panel 210 (unknown) (no date) (unknown[facility]) Result panel 211 (unknown) (no date) (unknown[facility] Result panel 212 (unknown) (no date) (unknown) [facility]) Result panel 213 (unknown) (no date) (unknown[facility] Result panel 214 (unknown) (no date) (unknown) [facility] Result panel 215 (unknown) (no date) (unknown) [facility]) Result panel 216 (unknown) (no date) (unknown) [facility] Result panel 217 (unknown) (no date) (unknown) [facility]) Result panel 218 (unknown) (no date) (unknown) [facility]) Result panel 219 (unknown) (no date) (unknown) [facility]) Result panel 220 (unknown) (no date) (unknown) [facility]) Result panel 221 (unknown) (no date) (unknown) [facility]) Result panel 222 (unknown) (no date) (unknown) [facility]) Result panel 223 (unknown) (no date) (unknown) [facility]) Result panel 224 (unknown) (no date) (unknown) [facility]) Result panel 225 (unknown) (no date) (unknown) [facility]) Result panel 226 (unknown) (no date) (unknown) [facility]) Result panel 227 (unknown) (no date) (unknown) [facility]) Result panel 228 (unknown) (no date) (unknown) [facility]) Result panel 229 (unknown) (no date) (unknown) [facility]) Result panel 230 (unknown) (no date) (unknown) [facility]) Result panel 231 (unknown) (no date) (unknown) [facility] Result panel 232 (unknown) (no date) (unknown) [facility]) Result panel 233 (unknown) (no date) (unknown) [facility]) Result panel 234 (unknown) (no date) (unknown) [facility]) Result panel 235 (unknown) (no date) (unknown) [facility]) Result panel 236 (unknown) (no date) (unknown) [facility]) Result panel 237 (unknown) (no date) (unknown) [facility]) Result panel 238 (unknown) (no date) (unknown) [facility]) Result panel 239 (unknown) (no date) (unknown) [facility]) Result panel 240 (unknown) (no date) (unknown) [facility]) Result panel 241 (unknown) (no date) (unknown) [facility]) Result panel 242 (unknown) (no date) (unknown) [facility]) Result panel 243 (unknown) (no date) (unknown) [facility]) Result panel 244 (unknown) (no date) (unknown) [facility]) Result panel 245 (unknown) (no date) (unknown) [facility]) Result panel 246 (unknown) (no date) (unknown) [facility]) Result panel 247 (unknown) (no date) (unknown) [facility]) Result panel 248 (unknown) (no date) (unknown) [facility]) Result panel 249 (unknown) (no date) (unknown) [facility]) Result panel 250 (unknown) (no date) (unknown) [facility]) Result panel 251 (unknown) (no date) (unknown) [facility]) Result panel 252 (unknown) (no date) (unknown) [facility]) Result panel 253 (unknown) (no date) (unknown) [facility]) Result panel 254 (unknown) (no date) (unknown) [facility]) Result panel 255 (unknown) (no date) (unknown) [facility]) Result panel 256 (unknown) (no date) (unknown) [facility]) Result panel 257 (unknown) (no date) (unknown) [facility]) Result panel 258 (unknown) (no date) (unknown) [facility]) Result panel 259 (unknown) (no date) (unknown) [facility]) Result panel 260 (unknown) (no date) (unknown) [facility]) Result panel 261 (unknown) (no date) (unknown) [facility]) Result panel 262 (unknown) (no date) (unknown) [facility]) Result panel 263 (unknown) (no date) (unknown) [facility]) Result panel 264 (unknown) (no date) (unknown) [facility]) Result panel 265 (unknown) (no date) (unknown) [facility]) Result panel 266 (unknown) (no date) (unknown) [facility]) Result panel 267 (unknown) (no date) (unknown) [facility]) Result panel 268 (unknown) (no date) (unknown) [facility]) Result panel 269 (unknown) (no date) (unknown) [facility]) Result panel 270 (unknown) (no date) (unknown) [facility]) Result panel 271 (unknown) (no date) (unknown) [facility]) Result panel 272 (unknown) (no date) (unknown) [facility]) Result panel 273 (unknown) (no date) (unknown) [facility]) Result panel 274 (unknown) (no date) (unknown) [facility]) Result panel 275 (unknown) (no date) (unknown) [facility]) Result panel 276 (unknown) (no date) (unknown) [facility]) Result panel 277 (unknown) (no date) (unknown) [facility]) Result panel 278 (unknown) (no date) (unknown) [facility]) Result panel 279 (unknown) (no date) (unknown) [facility]) Result panel 280 (unknown) (no date) (unknown) [facility]) Result panel 281 (unknown) (no date) (unknown) [facility]) Result panel 282 (unknown) (no date) (unknown) [facility]) Result panel 283 (unknown) (no date) (unknown) [facility]) Result panel 284 (unknown) (no date) (unknown) [facility]) Result panel 285 (unknown) (no date) (unknown) [facility]) Result panel 286 (unknown) (no date) (unknown) [facility]) Result panel 287 (unknown) (no date) (unknown) [facility]) Result panel 288 (unknown) (no date) (unknown) [facility]) Result panel 289 (unknown) (no date) (unknown) [facility]) Result panel 290 (unknown) (no date) (unknown) [facility]) Result panel 291 (unknown) (no date) (unknown) [facility]) Result panel 292 (unknown) (no date) (unknown) [facility]) Result panel 293 (unknown) (no date) (unknown) [facility]) Result panel 294 (unknown) (no date) (unknown) [facility]) Result panel 295 (unknown) (no date) (unknown) [facility]) Result panel 296 (unknown) (no date) (unknown) [facility]) Result panel 297 (unknown) (no date) (unknown) [facility]) Result panel 298 (unknown) (no date) (unknown) [facility]) Result panel 299 (unknown) (no date) (unknown) [facility]) Result panel 300 (unknown) (no date) (unknown) [facility]) Result panel 301 (unknown) (no date) (unknown) [facility]) Result panel 302 (unknown) (no date) (unknown) [facility]) Result panel 303 (unknown) (no date) (unknown) [facility]) Result panel 304 (unknown) (no date) (unknown) [facility]) Result panel 305 (unknown) (no date) (unknown) [facility]) Result panel 306 (unknown) (no date) (unknown) [facility]) Result panel 307 (unknown) (no date) (unknown) [facility]) Result panel 308 (unknown) (no date) (unknown) [facility]) Result panel 309 (unknown) (no date) (unknown) [facility]) Result panel 310 (unknown) (no date) (unknown) [facility]) Result panel 311 (unknown) (no date) (unknown) [facility]) Result panel 312 (unknown) (no date) (unknown) [facility]) Result panel 313 (unknown) (no date) (unknown) [facility]) Result panel 314 (unknown) (no date) (unknown) [facility]) Result panel 315 (unknown) (no date) (unknown) [facility]) Result panel 316 (unknown) (no date) (unknown) [facility]) Result panel 317 (unknown) (no date) (unknown) [facility]) Result panel 318 (unknown) (no date) (unknown) [facility]) Result panel 319 (unknown) (no date) (unknown) [facility]) Result panel 320 (unknown) (no date) (unknown) [facility]) Result panel 321 (unknown) (no date) (unknown) [facility]) Result panel 322 (unknown) (no date) (unknown) [facility]) Result panel 323 (unknown) (no date) (unknown) [facility]) Result panel 324 (unknown) (no date) (unknown) [facility]) Result panel 325 (unknown) (no date) (unknown) [facility]) Result panel 326 (unknown) (no date) (unknown) [facility]) Result panel 327 (unknown) (no date) (unknown) [facility]) Result panel 328 (unknown) (no date) (unknown) [facility]) Result panel 329 (unknown) (no date) (unknown) [facility]) Result panel 330 (unknown) (no date) (unknown) [facility]) Result panel 331 (unknown) (no date) (unknown) [facility]) Result panel 332 (unknown) (no date) (unknown) [facility]) Result panel 333 (unknown) (no date) (unknown) [facility]) Result panel 334 (unknown) (no date) (unknown) [facility]) Result panel 335 (unknown) (no date) (unknown) [facility]) Result panel 336 (unknown) (no date) (unknown) [facility]) Result panel 337 (unknown) (no date) (unknown) [facility]) Result panel 338 (unknown) (no date) (unknown) [facility]) Result panel 339 (unknown) (no (unknown) (unknown) (no value) (units (unk nown) date) unknown) (unknown) (no (unknown) (unknown) (scale score 7-10) (units (unknown) date) #60 tabs unknown) (unknown) (no (unknown) (unknown) .COMPLEX #180 tabs (units (unknown) date) unknown) (unknown) (no (unknown) (unknown) 1 tab PO Q8H PRN (units (unknown) date) (Reason: pain) Qty: unknown) 6 0RF (unknown) (no (unknown) (unknown) 10 mg PO QID Qty: (units (unknown) date) 120 2RF unknown) (unknown) (no (unknown) (unknown) 100 mg PO BEDTIME (units (unknown) date) unknown) (unknown) (no (unknown) (unknown) 100 mg PO BID PRN (units (unknown) date) (Reason: severe unknown) pain (scale score 7-10)) Qty: 60 0RF (unknown) (no (unknown) (unknown) 2 g topical QID (units (unknown) date) Qty: 100 3RF unknown) (unknown) (no (unknown) (unknown) 200 mg PO DAILY (units (unknown) date) Qty: 30 2RF unknown) (unknown) (no (unknown) (unknown) 200 mg PO DAILY (units (unknown) date) Qty: 60 2RF unknown) (unknown) (no (unknown) (unknown) 5 mg PO Q6H PRN (units (unknown) date) (Reason: pain) Qty: unknown) 14 0RF (unknown) (no (unknown) (unknown) 5 mg PO TID PRN (units (unknown) date) (Reason: muscle unknown) spasm) Qty: 10 0RF (unknown) (no (unknown) (unknown) 500 mg PO BID Qty: (units (unknown) date) 60 0RF unknown) (unknown) (no (unknown) (unknown) : [id number] (units (u nknown) date) unknown) (unknown) (no (unknown) (unknown) Age/Sex: 27 / F (units (unknown) date) unknown) (unknown) (no (unknown) (unknown) Allergies (units (unkn own) date) unknown) (unknown) (no (unknown) (unknown) Allergy/AdvReac (units (unknown) date) Type Severity unknown) Reaction Status Date / Time (unknown) (no (unknown) (unknown) 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 (unknown) (no (unknown) (unknown) Breast cancer (units ( unknown) date) unknown) (unknown) (no (unknown) (unknown) CAD (coronary (units ( unknown) date) artery disease) unknown) (unknown) (no (unknown) (unknown) Contract void and (units (unknown) date) provider will offer unknown) no further tramadol refills if tramadol (unknown) (no (unknown) (unknown) : 1995 (units (unknown) date) Acct:[id number] unknown) (unknown) (no (unknown) (unknown) Date of Service: (units (unknown) date) 11/15/22 unknown) (unknown) (no (unknown) (unknown) Departure (units (unkn own) date) unknown) (unknown) (no (unknown) (unknown) Discharge Plan (units (unknown) date) unknown) (unknown) (no (unknown) (unknown) Dose Instruction: (units (unknown) date) unknown) (unknown) (no (unknown) (unknown) ER Physician: (units ( unknown) date) Stephie Escalante D.O. unknown) (unknown) (no (unknown) (unknown) Emergency Report (units (unknown) date) unknown) (unknown) (no (unknown) (unknown) Endometriosis (units ( unknown) date) unknown) (unknown) (no (unknown) (unknown) Family History (units (unknown) date) (Reviewed 05/05/22 unknown) @ 21:08 by Vargas Hill MD) (unknown) (no (unknown) (unknown) General (units (unkno wn) date) unknown) (unknown) (no (unknown) (unknown) Grandmother (units (un known) date) Ovarian unknown) cancer (unknown) (no (unknown) (unknown) H/O unilateral (units (unknown) date) oophorectomy unknown) () (unknown) (no (unknown) (unknown) H/O: hysterectomy (units (unknown) date) unknown) (unknown) (no (unknown) (unknown) HPI - Abdominal (units (unknown) date) Pain unknown) (unknown) (no (unknown) (unknown) Hematuria (units (unkn own) date) unknown) (unknown) (no (unknown) (unknown) History of ureter (units (unknown) date) stent unknown) (unknown) (no (unknown) (unknown) Hold Instructions: [...] FOR ANAPHYLAXIS UNTIL (unknown) (no (unknown) (unknown) IV DYE] (units (unkno wn) date) unknown) (unknown) (no (unknown) (unknown) Iodinated Contrast (units (unknown) date) Media Allergy unknown) Unknown Verified 04/22/22 14:44 (unknown) (no (unknown) (unknown) [facility] (units (unknown) date) [address] unknown) [place] [address] (unknown) (no (unknown) (unknown) Limit as possible. (units (unknown) date) Prescribed per 03/21 unknown) signed pain management contract. (unknown) (no (unknown) (unknown) Major depressive (units (unknown) date) disorder unknown) (unknown) (no (unknown) (unknown) Medical History (units (unknown) date) (Reviewed 05/05/22 unknown) @ 21:08 by Vargas Hill MD) (unknown) (no (unknown) (unknown) Medication (units (unk nown) date) Instructions unknown) Recorded Confirmed (unknown) (no (unknown) (unknown) Medication (units (unk nown) date) Instructions unknown) Recorded (unknown) (no (unknown) (unknown) Morbid obesity (units (unknown) date) unknown) (unknown) (no (unknown) (unknown) 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 unknown) (unknown) (no (unknown) (unknown) Nephrolithiasis (units (unknown) date) (-2017) unknown) (unknown) (no (unknown) (unknown) No Action (units (unkn own) date) unknown) (unknown) (no (unknown) (unknown) Ovarian cyst (units (u nknown) date) unknown) (unknown) (no (unknown) (unknown) PCOS (polycystic (units (unknown) date) ovarian syndrome) unknown) (unknown) (no (unknown) (unknown) Patellar (units (unkno wn) date) dislocation unknown) (unknown) (no (unknown) (unknown) Patient History (units (unknown) date) unknown) (unknown) (no (unknown) (unknown) Patient: (units (unkno wn) date) Eileen Jorgensen unknown) M MR# (unknown) (no (unknown) (unknown) Pelvic congestion (units (unknown) date) (2014) unknown) (unknown) (no (unknown) (unknown) Penicillins (units (un known) date) [PENICILLINS] unknown) Allergy Mild Verified 04/22/22 14:44 (unknown) (no (unknown) (unknown) Prescriptions: (units (unknown) date) unknown) (unknown) (no (unknown) (unknown) Previous Rx's (units ( unknown) date) unknown) (unknown) (no (unknown) (unknown) 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 (unknown) (no (unknown) (unknown) RESPONSE (units (unkno wn) date) unknown) (unknown) (no (unknown) (unknown) Referrals: (units (unk nown) date) unknown) (unknown) (no (unknown) (unknown) Related Data (units (u nknown) date) unknown) (unknown) (no (unknown) (unknown) Rx Instructions: (units (unknown) date) unknown) (unknown) (no (unknown) (unknown) See Rx (units (unkno wn) date) Instructions .ROUTE unknown) .COMPLEX Qty: 180 0RF (unknown) (no (unknown) (unknown) See Rx (units (unkno wn) date) Instructions .ROUTE unknown) .COMPLEX Qty: 2 0RF (unknown) (no (unknown) (unknown) See Rx (units (unkno wn) date) Instructions PO unknown) BEDTIME Qty: 45 2RF (unknown) (no (unknown) (unknown) Signed By: (units (unk nown) date) unknown) (unknown) (no (unknown) (unknown) Smoking Status: (units (unknown) date) Current every day unknown) smoker (unknown) (no (unknown) (unknown) Social History (units (unknown) date) (Reviewed 05/05/22 unknown) @ 21:08 by Vargas Hill MD) (unknown) (no (unknown) (unknown) Stated Complaint: (units (unknown) date) abdominal pain, unknown) vomiting blood (unknown) (no (unknown) (unknown) Status post (units [...] (unknown) Surgical History (units (unknown) date) (Reviewed 05/05/22 unknown) @ 21:08 by Vargas Hill MD) (unknown) (no (unknown) (unknown) TAKE 2 TABLETS BY (units (unknown) date) MOUTH AT BEDTIME unknown) NEEDED FOR INSOMNIA (unknown) (no (unknown) (unknown) Take 1 tab p.o. at (units (unknown) date) HS. May take 1/2 unknown) tab p.o. during the day for anxiety (unknown) (no (unknown) (unknown) Time Seen by (units (u nknown) date) Provider: 11/15/22 unknown) 21:09 (unknown) (no (unknown) (unknown) Christi Johnson (units (unknown) date) L, DNP, [employer]PER[employer] unknown) [Primary Care Provider] (unknown) (no (unknown) (unknown) [From BACTRIM] (units (unknown) date) unknown) (unknown) (no (unknown) (unknown) [IODINATED (units (unk nown) date) CONTRAST MEDIA unknown) (unknown) (no (unknown) (unknown) [METOCLOPRAMIDE] (units (unknown) date) unknown) (unknown) (no (unknown) (unknown) [PROCHLORPERAZINE] (units (unknown) date) unknown) (unknown) (no (unknown) (unknown) [SHELLFISH (units (unk nown) date) DERIVED] unknown) (unknown) (no (unknown) (unknown) adhesive (units (unkno wn) date) [ADHESIVE] Allergy unknown) Mild Verified 04/22/22 14:44 (unknown) (no (unknown) (unknown) alcohol intake (units (unknown) date) frequency: unknown) holidays/special occasions only (unknown) (no (unknown) (unknown) amoxicillin (units (un known) date) [AMOXICILLIN] unknown) Allergy Mild Verified 04/22/22 14:44 (unknown) (no (unknown) (unknown) apply to single (units (unknown) date) elbow, wrist or unknown) hand; for hand includes palm/fingers/back of (unknown) (no (unknown) (unknown) cephalexin (units (unk nown) date) [CEPHALEXIN] unknown) Allergy Unknown Verified 04/22/22 14:44 (unknown) (no (unknown) (unknown) ciprofloxacin (units ( unknown) date) [CIPROFLOXACIN] unknown) Allergy Unknown Verified 04/22/22 14:44 (unknown) (no (unknown) (unknown) clindamycin (units (un known) date) [CLINDAMYCIN] unknown) Allergy Unknown Verified 04/22/22 14:44 (unknown) (no (unknown) (unknown) diazepam 10 mg (units (unknown) date) tablet 10 mg PO QID unknown) #120 tabs 10/12/21 (unknown) (no (unknown) (unknown) diazepam 10 mg (units (unknown) date) tablet unknown) (unknown) (no (unknown) (unknown) diazepam 5 mg (units ( unknown) date) tablet (Valium) 5 unknown) mg PO TID PRN muscle spasm #10 10/19/21 (unknown) (no (unknown) (unknown) diazepam [Valium] (units (unknown) date) 5 mg tablet unknown) (unknown) (no (unknown) (unknown) diclofenac sodium (units (unknown) date) 1 % gel unknown) (unknown) (no (unknown) (unknown) diclofenac sodium (units (unknown) date) 1 % topical gel 2 g unknown) topical QID #100 grams 05/05/22 (unknown) (no (unknown) (unknown) doxycycline (units (un known) date) [DOXYCYCLINE] unknown) Allergy Mild Verified 04/22/22 14:44 (unknown) (no (unknown) (unknown) epinephrine 0.3 (units (unknown) date) mg/0.3 mL See Rx unknown) Instructions .Route 02/27/22 (unknown) (no (unknown) (unknown) epinephrine 0.3 (units (unknown) date) mg/0.3 mL unknown) auto-injector (unknown) (no (unknown) (unknown) hand (units (unkno wn) date) unknown) (unknown) (no (unknown) (unknown) household members: (units (unknown) date) spouse and children unknown) (unknown) (no (unknown) (unknown) hydrocodone (units (un known) date) Allergy Mild rash unknown) Verified 04/22/22 14:44 (unknown) (no (unknown) (unknown) injection, (units (unk nown) date) auto-injector unknown) .COMPLEX #2 ea (unknown) (no (unknown) (unknown) iodine [IODINE] (units (unknown) date) Allergy Mild unknown) Verified 04/22/22 14:44 (unknown) (no (unknown) (unknown) lamotrigine 200 mg (units (unknown) date) tablet 200 mg PO unknown) DAILY #30 tabs 01/18/22 (unknown) (no (unknown) (unknown) lamotrigine 200 mg (units (unknown) date) tablet unknown) (unknown) (no (unknown) (unknown) latex [LATEX] (units ( unknown) date) Allergy Unknown unknown) Verified 04/22/22 14:44 (unknown) (no (unknown) (unknown) lidocaine AdvReac (units (unknown) date) Palpitation unknown) Verified 04/22/22 14:44 (unknown) (no (unknown) (unknown) lives (units (unkno wn) date) independently: Yes unknown) (unknown) (no (unknown) (unknown) marital status: (units (unknown) date) unknown) (unknown) (no (unknown) (unknown) metformin 500 mg (units (unknown) date) tablet 500 mg PO unknown) BID #60 tabs 02/21/22 (unknown) (no (unknown) (unknown) metformin 500 mg (units (unknown) date) tablet unknown) (unknown) (no (unknown) (unknown) metoclopramide (units (unknown) date) Allergy Mild unknown) Verified 04/22/22 14:44 (unknown) (no (unknown) (unknown) mg tablet (units (unkn own) date) (Percocet) unknown) (unknown) (no (unknown) (unknown) occupational (units (u nknown) date) status: employed unknown) (unknown) (no (unknown) (unknown) oxycodone 10 mg (units (unknown) date) tablet 5 mg PO Q6H unknown) PRN pain #14 tabs 05/05/22 (unknown) (no (unknown) (unknown) oxycodone 10 mg (units (unknown) date) tablet unknown) (unknown) (no (unknown) (unknown) oxycodone-acetamin (units (unknown) date) ophen 5 mg-325 1 unknown) tab PO Q8H PRN pain #6 tabs 04/22/22 (unknown) (no (unknown) (unknown) oxycodone-acetamin (units (unknown) date) ophen [Percocet] unknown) 5-325 mg tablet (unknown) (no (unknown) (unknown) prochlorperazine (units (unknown) date) Allergy Mild unknown) Verified 04/22/22 14:44 (unknown) (no (unknown) (unknown) quetiapine 100 mg (units (unknown) date) tablet 100 mg PO unknown) BEDTIME 02/27/22 02/27/22 (unknown) (no (unknown) (unknown) quetiapine 100 mg (units (unknown) date) tablet unknown) (unknown) (no (unknown) (unknown) quetiapine 25 mg (units (unknown) date) tablet See Rx unknown) Instructions PO BEDTIME #45 01/18/22 (unknown) (no (unknown) (unknown) quetiapine 25 mg (units (unknown) date) tablet unknown) (unknown) (no (unknown) (unknown) received per (units (u nknown) date) another provider. unknown) (unknown) (no (unknown) (unknown) s (units (unkno wn) date) unknown) (unknown) (no (unknown) (unknown) sertraline 100 mg (units (unknown) date) tablet 200 mg PO unknown) DAILY #60 tabs 01/18/22 (unknown) (no (unknown) (unknown) sertraline 100 mg (units (unknown) date) tablet unknown) (unknown) (no (unknown) (unknown) shellfish derived (units (unknown) date) Allergy Severe unknown) ANAPHYLAXIS Verified 04/22/22 14:44 (unknown) (no (unknown) (unknown) sulfamethoxazole (units (unknown) date) Allergy Mild RASH unknown) Verified 04/22/22 14:44 (unknown) (no (unknown) (unknown) tabs (units (unkno wn) date) unknown) (unknown) (no (unknown) (unknown) tobacco type: (units ( unknown) date) vaping unknown) (unknown) (no (unknown) (unknown) tramadol 50 mg (units (unknown) date) tablet 100 mg PO unknown) BID PRN severe pain 03/22/22 (unknown) (no (unknown) (unknown) tramadol 50 mg (units (unknown) date) tablet unknown) (unknown) (no (unknown) (unknown) trazodone 100 mg (units (unknown) date) tablet See Rx unknown) Instructions .Route 11/20/21 (unknown) (no (unknown) (unknown) trazodone 100 mg (units (unknown) date) tablet unknown) (unknown) (no (unknown) (unknown) trimethoprim [From (units (unknown) date) BACTRIM] Allergy unknown) Mild RASH Verified 04/22/22 14:44 Result panel 340 (unknown) (no date) (unknown) (unknown) 1 (units (unkn own) unknown) (unknown) (no date) (unknown) (unknown) 1.0 e.u./dl (unkn own) (unknown) (no date) (unknown) (unknown) 1.025 (units (unkn own) unknown) (unknown) (no date) (unknown) (unknown) 3 (units (unkn own) unknown) (unknown) (no date) (unknown) (unknown) 6.5 (units (unkn own) unknown) (unknown) (no date) (unknown) (unknown) CLOUDY (units (unkn own) unknown) (unknown) (no date) (unknown) (unknown) NEGATIVE (units (unkn own) unknown) (unknown) (no date) (unknown) (unknown) NEGATIVE g/dl (unkn own) (unknown) (no date) (unknown) (unknown) RED (units (unkn own) unknown) (unknown) (no date) (unknown) (unknown) RED (units (unkn own) unknown) Result panel 341 (unknown) (no date) (unknown) (unknown) >100/HPF (units (unkn own) unknown) (unknown) (no date) (unknown) (unknown) 1 (units (unkn own) unknown) (unknown) (no date) (unknown) (unknown) 1-5 /HPF (units (unkn own) unknown) (unknown) (no date) (unknown) (unknown) 1-5 /HPF (units (unkn own) unknown) (unknown) (no date) (unknown) (unknown) 1-5/HPF (units (unkn own) unknown) (unknown) (no date) (unknown) (unknown) 1.0 e.u./dl (unkn own) (unknown) (no date) (unknown) (unknown) 1.025 (units (unkn own) unknown) (unknown) (no date) (unknown) (unknown) 3 (units (unkn own) unknown) (unknown) (no date) (unknown) (unknown) 6.5 (units (unkn own) unknown) (unknown) (no date) (unknown) (unknown) CLOUDY (units (unkn own) unknown) (unknown) (no date) (unknown) (unknown) NEGATIVE (units (unkn own) unknown) (unknown) (no date) (unknown) (unknown) NEGATIVE g/dl (unkn own) (unknown) (no date) (unknown) (unknown) Occasional (units (un known) (0-1) unknown) (unknown) (no date) (unknown) (unknown) RED (units (unkn own) unknown) (unknown) (no date) (unknown) (unknown) RED (units (unkn own) unknown) (unknown) (no date) (unknown) (unknown) Specimen (units (unkn own) Cultured unknown) Result panel 342 (unknown) (no (unknown) (unknown) (no value) (units (unk nown) date) unknown) (unknown) (no (unknown) (unknown) (scale score 7-10) (units (unknown) date) #60 tabs unknown) (unknown) (no (unknown) (unknown) .COMPLEX #180 tabs (units (unknown) date) unknown) (unknown) (no (unknown) (unknown) 1 tab PO Q8H PRN (units (unknown) date) (Reason: pain) Qty: unknown) 6 0RF (unknown) (no (unknown) (unknown) 10 mg PO QID Qty: (units (unknown) date) 120 2RF unknown) (unknown) (no (unknown) (unknown) 100 mg PO BEDTIME (units (unknown) date) unknown) (unknown) (no (unknown) (unknown) 100 mg PO BID PRN (units (unknown) date) (Reason: severe unknown) pain (scale score 7-10)) Qty: 60 0RF (unknown) (no (unknown) (unknown) 2 g topical QID (units (unknown) date) Qty: 100 3RF unknown) (unknown) (no (unknown) (unknown) 200 mg PO DAILY (units (unknown) date) Qty: 30 2RF unknown) (unknown) (no (unknown) (unknown) 200 mg PO DAILY (units (unknown) date) Qty: 60 2RF unknown) (unknown) (no (unknown) (unknown) 5 mg PO Q6H PRN (units (unknown) date) (Reason: pain) Qty: unknown) 14 0RF (unknown) (no (unknown) (unknown) 5 mg PO TID PRN (units (unknown) date) (Reason: muscle unknown) spasm) Qty: 10 0RF (unknown) (no (unknown) (unknown) 500 mg PO BID Qty: (units (unknown) date) 60 0RF unknown) (unknown) (no (unknown) (unknown) : [id number] (units (u nknown) date) unknown) (unknown) (no (unknown) (unknown) Age/Sex: 27 / F (units (unknown) date) unknown) (unknown) (no (unknown) (unknown) Allergies (units (unkn own) date) unknown) (unknown) (no (unknown) (unknown) Allergy/AdvReac (units (unknown) date) Type Severity unknown) Reaction Status Date / Time (unknown) (no (unknown) (unknown) 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 (unknown) (no (unknown) (unknown) Breast cancer (units ( unknown) date) unknown) (unknown) (no (unknown) (unknown) CAD (coronary (units ( unknown) date) artery disease) unknown) (unknown) (no (unknown) (unknown) Chief Complaint: (units (unknown) date) Abdominal Pain unknown) (unknown) (no (unknown) (unknown) Contract void and (units (unknown) date) provider will offer unknown) no further tramadol refills if tramadol (unknown) (no (unknown) (unknown) : 1995 (units (unknown) date) Acct:[id number] unknown) (unknown) (no (unknown) (unknown) Date of Service: (units (unknown) date) 11/15/22 unknown) (unknown) (no (unknown) (unknown) Departure (units (unkn own) date) unknown) (unknown) (no (unknown) (unknown) Discharge Plan (units (unknown) date) unknown) (unknown) (no (unknown) (unknown) Dose Instruction: (units (unknown) date) unknown) (unknown) (no (unknown) (unknown) ER Physician: (units ( unknown) date) Stephie Escalante D.O. unknown) (unknown) (no (unknown) (unknown) Emergency Report (units (unknown) date) unknown) (unknown) (no (unknown) (unknown) Endometriosis (units ( unknown) date) unknown) (unknown) (no (unknown) (unknown) Family History (units (unknown) date) (Reviewed 05/05/22 unknown) @ 21:08 by Vargas Hill MD) (unknown) (no (unknown) (unknown) General (units (unkno wn) date) unknown) (unknown) (no (unknown) (unknown) Grandmother (units (un known) date) Ovarian unknown) cancer (unknown) (no (unknown) (unknown) H/O unilateral (units (unknown) date) oophorectomy unknown) () (unknown) (no (unknown) (unknown) H/O: hysterectomy (units (unknown) date) unknown) (unknown) (no (unknown) (unknown) HPI - Abdominal (units (unknown) date) Pain unknown) (unknown) (no (unknown) (unknown) Hematuria (units (unkn own) date) unknown) (unknown) (no (unknown) (unknown) History of ureter (units (unknown) date) stent unknown) (unknown) (no (unknown) (unknown) Hold Instructions: [...] FOR ANAPHYLAXIS UNTIL (unknown) (no (unknown) (unknown) IV DYE] (units (unkno wn) date) unknown) (unknown) (no (unknown) (unknown) Iodinated Contrast (units (unknown) date) Media Allergy unknown) Unknown Verified 04/22/22 14:44 (unknown) (no (unknown) (unknown) [facility] (units (unknown) date) [address] [place] [address] unknown) ANALY Li [id number] (unknown) (no (unknown) (unknown) Limit as possible. (units (unknown) date) Prescribed per 03/21 unknown) signed pain management contract. (unknown) (no (unknown) (unknown) Major depressive (units (unknown) date) disorder unknown) (unknown) (no (unknown) (unknown) Medical History (units (unknown) date) (Reviewed 05/05/22 unknown) @ 21:08 by Vargas Hill MD) (unknown) (no (unknown) (unknown) Medication (units (unk nown) date) Instructions unknown) Recorded Confirmed (unknown) (no (unknown) (unknown) Medication (units (unk nown) date) Instructions unknown) Recorded (unknown) (no (unknown) (unknown) Morbid obesity (units (unknown) date) unknown) (unknown) (no (unknown) (unknown) 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 unknown) (unknown) (no (unknown) (unknown) Nephrolithiasis (units (unknown) date) () unknown) (unknown) (no (unknown) (unknown) No Action (units (unkn own) date) unknown) (unknown) (no (unknown) (unknown) Ovarian cyst (units (u nknown) date) unknown) (unknown) (no (unknown) (unknown) PCOS (polycystic (units (unknown) date) ovarian syndrome) unknown) (unknown) (no (unknown) (unknown) Patellar (units (unkno wn) date) dislocation unknown) (unknown) (no (unknown) (unknown) Patient History (units (unknown) date) unknown) (unknown) (no (unknown) (unknown) Patient: (units (unkno wn) date) [place] unknown[place] M MR# (unknown) (no (unknown) (unknown) Pelvic congestion (units (unknown) date) (2013) unknown) (unknown) (no (unknown) (unknown) Penicillins (units (un known) date) [PENICILLINS] unknown) Allergy Mild Verified 04/22/22 14:44 (unknown) (no (unknown) (unknown) Prescriptions: (units (unknown) date) unknown) (unknown) (no (unknown) (unknown) Previous Rx's (units ( unknown) date) unknown) (unknown) (no (unknown) (unknown) 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 (unknown) (no (unknown) (unknown) RESPONSE (units (unkno wn) date) unknown) (unknown) (no (unknown) (unknown) Referrals: (units (unk nown) date) unknown) (unknown) (no (unknown) (unknown) Related Data (units (u nknown) date) unknown) (unknown) (no (unknown) (unknown) Rx Instructions: (units (unknown) date) unknown) (unknown) (no (unknown) (unknown) See Rx (units (unkno wn) date) Instructions .ROUTE unknown) .COMPLEX Qty: 180 0RF (unknown) (no (unknown) (unknown) See Rx (units (unkno wn) date) Instructions .ROUTE unknown) .COMPLEX Qty: 2 0RF (unknown) (no (unknown) (unknown) See Rx (units (unkno wn) date) Instructions PO unknown) BEDTIME Qty: 45 2RF (unknown) (no (unknown) (unknown) Signed By: (units (unk nown) date) unknown) (unknown) (no (unknown) (unknown) Smoking Status: (units (unknown) date) Current every day unknown) smoker (unknown) (no (unknown) (unknown) Social History (units (unknown) date) (Reviewed 05/05/22 unknown) @ 21:08 by Vargas Hill MD) (unknown) (no (unknown) (unknown) Stated Complaint: (units (unknown) date) abdominal pain, unknown) vomiting blood (unknown) (no (unknown) (unknown) Status post (units [...] Status post knee (units (unknown) date) surgery (2013) unknown) (unknown) (no (unknown) (unknown) Status post [...] (unknown) Surgical History (units (unknown) date) (Reviewed 05/05/22 unknown) @ 21:08 by Vargas Hill MD) (unknown) (no (unknown) (unknown) TAKE 2 TABLETS BY (units (unknown) date) MOUTH AT BEDTIME unknown) NEEDED FOR INSOMNIA (unknown) (no (unknown) (unknown) Take 1 tab p.o. at (units (unknown) date) HS. May take 1/2 unknown) tab p.o. during the day for anxiety (unknown) (no (unknown) (unknown) Time Seen by (units (u nknown) date) Provider: 11/15/22 unknown) 21:09 (unknown) (no (unknown) (unknown) Christi Johnson (units (unknown) date) L, DNP, [employer]PER[employer] unknown) [Primary Care Provider] (unknown) (no (unknown) (unknown) [From BACTRIM] (units (unknown) date) unknown) (unknown) (no (unknown) (unknown) [IODINATED (units (unk nown) date) CONTRAST MEDIA unknown) (unknown) (no (unknown) (unknown) [METOCLOPRAMIDE] (units (unknown) date) unknown) (unknown) (no (unknown) (unknown) [PROCHLORPERAZINE] (units (unknown) date) unknown) (unknown) (no (unknown) (unknown) [SHELLFISH (units (unk nown) date) DERIVED] unknown) (unknown) (no (unknown) (unknown) adhesive (units (unkno wn) date) [ADHESIVE] Allergy unknown) Mild Verified 04/22/22 14:44 (unknown) (no (unknown) (unknown) alcohol intake (units (unknown) date) frequency: unknown) holidays/special occasions only (unknown) (no (unknown) (unknown) amoxicillin (units (un known) date) [AMOXICILLIN] unknown) Allergy Mild Verified 04/22/22 14:44 (unknown) (no (unknown) (unknown) apply to single (units (unknown) date) elbow, wrist or unknown) hand; for hand includes palm/fingers/back of (unknown) (no (unknown) (unknown) cephalexin (units (unk nown) date) [CEPHALEXIN] unknown) Allergy Unknown Verified 04/22/22 14:44 (unknown) (no (unknown) (unknown) ciprofloxacin (units ( unknown) date) [CIPROFLOXACIN] unknown) Allergy Unknown Verified 04/22/22 14:44 (unknown) (no (unknown) (unknown) clindamycin (units (un known) date) [CLINDAMYCIN] unknown) Allergy Unknown Verified 04/22/22 14:44 (unknown) (no (unknown) (unknown) diazepam 10 mg (units (unknown) date) tablet 10 mg PO QID unknown) #120 tabs 10/12/21 (unknown) (no (unknown) (unknown) diazepam 10 mg (units (unknown) date) tablet unknown) (unknown) (no (unknown) (unknown) diazepam 5 mg (units ( unknown) date) tablet (Valium) 5 unknown) mg PO TID PRN muscle spasm #10 10/19/21 (unknown) (no (unknown) (unknown) diazepam [Valium] (units (unknown) date) 5 mg tablet unknown) (unknown) (no (unknown) (unknown) diclofenac sodium (units (unknown) date) 1 % gel unknown) (unknown) (no (unknown) (unknown) diclofenac sodium (units (unknown) date) 1 % topical gel 2 g unknown) topical QID #100 grams 05/05/22 (unknown) (no (unknown) (unknown) doxycycline (units (un known) date) [DOXYCYCLINE] unknown) Allergy Mild Verified 04/22/22 14:44 (unknown) (no (unknown) (unknown) epinephrine 0.3 (units (unknown) date) mg/0.3 mL See Rx unknown) Instructions .Route 02/27/22 (unknown) (no (unknown) (unknown) epinephrine 0.3 (units (unknown) date) mg/0.3 mL unknown) auto-injector (unknown) (no (unknown) (unknown) hand (units (unkno wn) date) unknown) (unknown) (no (unknown) (unknown) household members: (units (unknown) date) spouse and children unknown) (unknown) (no (unknown) (unknown) hydrocodone (units (un known) date) Allergy Mild rash unknown) Verified 04/22/22 14:44 (unknown) (no (unknown) (unknown) injection, (units (unk nown) date) auto-injector unknown) .COMPLEX #2 ea (unknown) (no (unknown) (unknown) iodine [IODINE] (units (unknown) date) Allergy Mild unknown) Verified 04/22/22 14:44 (unknown) (no (unknown) (unknown) lamotrigine 200 mg (units (unknown) date) tablet 200 mg PO unknown) DAILY #30 tabs 01/18/22 (unknown) (no (unknown) (unknown) lamotrigine 200 mg (units (unknown) date) tablet unknown) (unknown) (no (unknown) (unknown) latex [LATEX] (units ( unknown) date) Allergy Unknown unknown) Verified 04/22/22 14:44 (unknown) (no (unknown) (unknown) lidocaine AdvReac (units (unknown) date) Palpitation unknown) Verified 04/22/22 14:44 (unknown) (no (unknown) (unknown) lives (units (unkno wn) date) independently: Yes unknown) (unknown) (no (unknown) (unknown) marital status: (units (unknown) date) unknown) (unknown) (no (unknown) (unknown) metformin 500 mg (units (unknown) date) tablet 500 mg PO unknown) BID #60 tabs 02/21/22 (unknown) (no (unknown) (unknown) metformin 500 mg (units (unknown) date) tablet unknown) (unknown) (no (unknown) (unknown) metoclopramide (units (unknown) date) Allergy Mild unknown) Verified 04/22/22 14:44 (unknown) (no (unknown) (unknown) mg tablet (units (unkn own) date) (Percocet) unknown) (unknown) (no (unknown) (unknown) occupational (units (u nknown) date) status: employed unknown) (unknown) (no (unknown) (unknown) oxycodone 10 mg (units (unknown) date) tablet 5 mg PO Q6H unknown) PRN pain #14 tabs 05/05/22 (unknown) (no (unknown) (unknown) oxycodone 10 mg (units (unknown) date) tablet unknown) (unknown) (no (unknown) (unknown) oxycodone-acetamin (units (unknown) date) ophen 5 mg-325 1 unknown) tab PO Q8H PRN pain #6 tabs 04/22/22 (unknown) (no (unknown) (unknown) oxycodone-acetamin (units (unknown) date) ophen [Percocet] unknown) 5-325 mg tablet (unknown) (no (unknown) (unknown) prochlorperazine (units (unknown) date) Allergy Mild unknown) Verified 04/22/22 14:44 (unknown) (no (unknown) (unknown) quetiapine 100 mg (units (unknown) date) tablet 100 mg PO unknown) BEDTIME 02/27/22 02/27/22 (unknown) (no (unknown) (unknown) quetiapine 100 mg (units (unknown) date) tablet unknown) (unknown) (no (unknown) (unknown) quetiapine 25 mg (units (unknown) date) tablet See Rx unknown) Instructions PO BEDTIME #45 01/18/22 (unknown) (no (unknown) (unknown) quetiapine 25 mg (units (unknown) date) tablet unknown) (unknown) (no (unknown) (unknown) received per (units (u nknown) date) another provider. unknown) (unknown) (no (unknown) (unknown) s (units (unkno wn) date) unknown) (unknown) (no (unknown) (unknown) sertraline 100 mg (units (unknown) date) tablet 200 mg PO unknown) DAILY #60 tabs 01/18/22 (unknown) (no (unknown) (unknown) sertraline 100 mg (units (unknown) date) tablet unknown) (unknown) (no (unknown) (unknown) shellfish derived (units (unknown) date) Allergy Severe unknown) ANAPHYLAXIS Verified 04/22/22 14:44 (unknown) (no (unknown) (unknown) sulfamethoxazole (units (unknown) date) Allergy Mild RASH unknown) Verified 04/22/22 14:44 (unknown) (no (unknown) (unknown) tabs (units (unkno wn) date) unknown) (unknown) (no (unknown) (unknown) tobacco type: (units ( unknown) date) vaping unknown) (unknown) (no (unknown) (unknown) tramadol 50 mg (units (unknown) date) tablet 100 mg PO unknown) BID PRN severe pain 03/22/22 (unknown) (no (unknown) (unknown) tramadol 50 mg (units (unknown) date) tablet unknown) (unknown) (no (unknown) (unknown) trazodone 100 mg (units (unknown) date) tablet See Rx unknown) Instructions .Route 11/20/21 (unknown) (no (unknown) (unknown) trazodone 100 mg (units (unknown) date) tablet unknown) (unknown) (no (unknown) (unknown) trimethoprim [From (units (unknown) date) BACTRIM] Allergy unknown) Mild RASH Verified 04/22/22 14:44 Result panel 343 (unknown) (no date) (unknown) (unknown) > 60 ml/min (unkn own) (unknown) (no date) (unknown) (unknown) > 60 ml/min (unkn own) (unknown) (no date) (unknown) (unknown) 0.5 mg/dl (unkn own) (unknown) (no date) (unknown) (unknown) 0.87 mg/dl (unkn own) (unknown) (no date) (unknown) (unknown) 1.2 mmol/l (unkn own) (unknown) (no date) (unknown) (unknown) 1.6 (units unknown) (unknown) (unknown) (no date) (unknown) (unknown) 1.9 % (unkn own) (unknown) (no date) (unknown) (unknown) 100 /ul (unkn own) (unknown) (no date) (unknown) (unknown) 100 /ul (unkn own) (unknown) (no date) (unknown) (unknown) 103 mmol/l (unkn own) (unknown) (no date) (unknown) (unknown) 12.6 g/dl (unkn own) (unknown) (no date) (unknown) (unknown) 12.7 % (unkn own) (unknown) (no date) (unknown) (unknown) 136 mmol/l (unkn own) (unknown) (no date) (unknown) (unknown) 15 mg/dl (unkn own) (unknown) (no date) (unknown) (unknown) 16 iu/l (unkn own) (unknown) (no date) (unknown) (unknown) 16 iu/l (unkn own) (unknown) (no date) (unknown) (unknown) 17.2 (units unknown) (unknown) (unknown) (no date) (unknown) (unknown) 2.0 % (unkn own) (unknown) (no date) (unknown) (unknown) 2.5 g/dl (unkn own) (unknown) (no date) (unknown) (unknown) 2200 /ul (unkn own) (unknown) (no date) (unknown) (unknown) 245 x10 3/ul (unkn own) (unknown) (no date) (unknown) (unknown) 27 mmol/l (unkn own) (unknown) (no date) (unknown) (unknown) 3.6 mmol/l (unkn own) (unknown) (no date) (unknown) (unknown) 3.9 g/dl (unkn own) (unknown) (no date) (unknown) (unknown) 31.2 pg (unkn own) (unknown) (no date) (unknown) (unknown) 34.4 % (unkn own) (unknown) (no date) (unknown) (unknown) 35.3 % (unkn own) (unknown) (no date) (unknown) (unknown) 35.8 % (unkn own) (unknown) (no date) (unknown) (unknown) 3500 /ul (unkn own) (unknown) (no date) (unknown) (unknown) 4.04 x10 6/ul (unkn own) (unknown) (no date) (unknown) (unknown) 400 /ul (unkn own) (unknown) (no date) (unknown) (unknown) 43 u/l (unkn own) (unknown) (no date) (unknown) (unknown) 54.8 % (unkn own) (unknown) (no date) (unknown) (unknown) 6.4 g/dl (unkn own) (unknown) (no date) (unknown) (unknown) 6.4 x10 3/ul (unkn own) (unknown) (no date) (unknown) (unknown) 6.9 % (unkn own) (unknown) (no date) (unknown) (unknown) 8.3 mg/dl (unkn own) (unknown) (no date) (unknown) (unknown) 86 u/l (unkn own) (unknown) (no date) (unknown) (unknown) 88.6 fl (unkn own) (unknown) (no date) (unknown) (unknown) 96 mg/dl (unkn own) (unknown) (no date) (unknown) (unknown) 96 mg/dl (unkn own) Result panel 344 (unknown) (no (unknown) (unknown) (no value) (units (unk nown) date) unknown) (unknown) (no (unknown) (unknown) #: [id number] (units ( unknown) date) unknown) (unknown) (no (unknown) (unknown) 11/15/22 (units (unkno wn) date) unknown) (unknown) (no (unknown) (unknown) [address] [place] [address] (units (unknown) date) unknown) (unknown) (no (unknown) (unknown) 5 mm (units (unkno wn) date) unknown) (unknown) (no (unknown) (unknown) Accession Number: (units (unknown) date) [id number] unknown) (unknown) (no (unknown) (unknown) Age/Sex: 27 / F (units (unknown) date) Date of Service: unknown) (unknown) (no (unknown) (unknown) ANALY Li (units ( unknown) date) [id number] unknown) (unknown) (no (unknown) (unknown) Approved by: Alan (units (unknown) date) Raphael Castaneda on unknown) 11/15/2022 at 22:35 (unknown) (no (unknown) (unknown) Body wall: (units (unk nown) date) Unremarkable unknown) (unknown) (no (unknown) (unknown) Bones: No acute or (units (unknown) date) suspicious osseous unknown) finding. (unknown) (no (unknown) (unknown) Bowel and (units (unkn own) date) peritoneum: No unknown) evidence of small bowel obstruction. There are (unknown) (no (unknown) (unknown) COMPARISON: [facility] (units (unknown) date) [facility], unknown) MR, MR ABDOMEN MRCP, 06/12/2022, 10:50. (unknown) (no (unknown) (unknown) CT Scan Report (units (unknown) date) unknown) (unknown) (no (unknown) (unknown) Consider CT IVP (units (unknown) date) and possible unknown) cystoscopy for further workup of hematuria. (unknown) (no (unknown) (unknown) Consider (units (unkno wn) date) ultrasound unknown) correlation if needed to further workup pelvic organs. (unknown) (no (unknown) (unknown) : 1995 (units (unknown) date) Acct:[id number] unknown) (unknown) (no (unknown) (unknown) Dictated by: Alan (units (unknown) date) Raphael Castaneda on unknown) 11/15/2022 at 22:28 (unknown) (no (unknown) (unknown) FINDINGS: (units (unkn own) date) unknown) (unknown) (no (unknown) (unknown) Hysterectomy. (units ( unknown) date) unknown) (unknown) (no (unknown) (unknown) IMPRESSION: No (units (unknown) date) acute abdominal unknown) pelvic pathology. No calcified renal stones. (unknown) (no (unknown) (unknown) INDICATIONS: Left (units (unknown) date) lower quadrant unknown) pain, hematuria (unknown) (no (unknown) (unknown) Image quality: (units (unknown) date) Good unknown) (unknown) (no (unknown) (unknown) [facility] (units (unknown) date) unknown) (unknown) (no (unknown) (unknown) Loc: ED (units (unkno wn) date) unknown) (unknown) (no (unknown) (unknown) Lower chest: (units (u nknown) date) Unremarkable. No unknown) hiatal hernia. (unknown) (no (unknown) (unknown) No hydronephrosis. (units (unknown) date) No calcified unknown) stones. As before, minimally hyperattenuating (unknown) (no (unknown) (unknown) No (units (unkno wn) date) unknown) (unknown) (no (unknown) (unknown) Noncontrast 5 mm (units (unknown) date) thick sections unknown) acquired from the diaphragms to the symphysis. (unknown) (no (unknown) (unknown) Ordering Provider: (units (unknown) date) Stephie Escalante D.O. unknown) (unknown) (no (unknown) (unknown) PROCEDURE: CT (units ( unknown) date) ABDOMEN PELVIS WO unknown) CON (unknown) (no (unknown) (unknown) Patient: (units (unkno wn) date) Eileen Jorgensen unknown) M MR (unknown) (no (unknown) (unknown) Pelvis: Bladder is (units (unknown) date) underdistended unknown) which limits evaluation. Hysterectomy. (unknown) (no (unknown) (unknown) Procedure: CT (units ( unknown) date) abdomen pelvis wo unknown) con (unknown) (no (unknown) (unknown) Prominent (units (unkn own) date) unknown) (unknown) (no (unknown) (unknown) Signed (units (unkno wn) date) unknown) (unknown) (no (unknown) (unknown) [place] (units (unkno wn) date) unknown) (unknown) (no (unknown) (unknown) Solid organs: (units ( unknown) date) Liver is unknown) unremarkable. 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 No pathologic (unknown) (no (unknown) (unknown) TECHNIQUE: (units (unk nown) date) unknown) (unknown) (no (unknown) (unknown) [facility], (units (unknown) date) CT, CT ABDOMEN unknown) PELVIS WITHOUT CONTRAST, 06/11/2022, 19:33. (unknown) (no (unknown) (unknown) [facility], (units (unknown) date) MR, MR ABDOMEN unknown) MRCP, 06/12/2022, 10:50. (unknown) (no (unknown) (unknown) Vessels and lymph (units (unknown) date) nodes: No abdominal unknown) aortic aneurysm or pathologic adenopathy (unknown) (no (unknown) (unknown) about 14 (units (unkno wn) date) unknown) (unknown) (no (unknown) (unknown) according to (units (u nknown) date) unknown) (unknown) (no (unknown) (unknown) appearance of the (units (unknown) date) renal pyramids unknown) bilaterally. (unknown) (no (unknown) (unknown) by size (units (unkno wn) date) unknown) (unknown) (no (unknown) (unknown) cm. No adrenal (units (unknown) date) nodules. unknown) (unknown) (no (unknown) (unknown) colonic (units (unkno wn) date) unknown) (unknown) (no (unknown) (unknown) coronal and (units (un known) date) sagittal reformats unknown) were then performed. For radiation dose (unknown) (no (unknown) (unknown) criteria. (units (unkn own) date) unknown) (unknown) (no (unknown) (unknown) dilation of (units (un known) date) unknown) (unknown) (no (unknown) (unknown) diverticula. No (units (unknown) date) abscess or unknown) pathologic ascites. (unknown) (no (unknown) (unknown) evaluated on CT, (units (unknown) date) consider ultrasound unknown) correlation if needed. (unknown) (no (unknown) (unknown) following was (units ( unknown) date) used: automated unknown) exposure control, adjustment of mA and/or kV (unknown) (no (unknown) (unknown) hydronephrosis. (units (unknown) date) Nonspecific trace unknown) hyperattenuating appearance of the renal (unknown) (no (unknown) (unknown) left ovary, with (units (unknown) date) decreased size of unknown) previously seen cyst, reproductive organs are (unknown) (no (unknown) (unknown) not well (units (unkno wn) date) unknown) (unknown) (no (unknown) (unknown) patient size. (units ( unknown) date) unknown) (unknown) (no (unknown) (unknown) pyramids is (units (un known) date) unknown) (unknown) (no (unknown) (unknown) reduction, the (units (unknown) date) unknown) (unknown) (no (unknown) (unknown) sometimes (units (unkn own) date) associated with unknown) nephrocalcinosis. (unknown) (no (unknown) (unknown) the biliary tree (units (unknown) date) or pancreatic duct. unknown) Similar borderline splenomegaly, measuring Result panel 345 (unknown) (no date) (unknown) (unknown) < 0.03 ng/ml (unkn own) (unknown) (no date) (unknown) (unknown) < 0.03 ng/ml (unkn own) Result panel 346 (unknown) (no (unknown) (unknown) (no value) (units (unk nown) date) unknown) (unknown) (no (unknown) (unknown) (scale score 7-10) (units (unknown) date) #60 tabs unknown) (unknown) (no (unknown) (unknown) .COMPLEX #180 tabs (units (unknown) date) unknown) (unknown) (no (unknown) (unknown) 11/15/22 11/15/22 (units (unknown) date) 11/15/22 Range/Units unknown) (unknown) (no (unknown) (unknown) 11/15/22 11/15/22 (units (unknown) date) Range/Units unknown) (unknown) (no (unknown) (unknown) 11/15/22 21:20 (units (unknown) date) unknown) (unknown) (no (unknown) (unknown) 11/15/22 21:32 (units (unknown) date) unknown) (unknown) (no (unknown) (unknown) 11/15/22 22:00 (units (unknown) date) unknown) (unknown) (no (unknown) (unknown) 11/15/22 (units (unkno wn) date) unknown) (unknown) (no (unknown) (unknown) 1 tab PO Q8H PRN (units (unknown) date) (Reason: pain) Qty: unknown) 6 0RF (unknown) (no (unknown) (unknown) 10 mg PO QID Qty: (units (unknown) date) 120 2RF unknown) (unknown) (no (unknown) (unknown) 100 mg PO BEDTIME (units (unknown) date) unknown) (unknown) (no (unknown) (unknown) 100 mg PO BID PRN (units (unknown) date) (Reason: severe pain unknown) (scale score 7-10)) Qty: 60 0RF (unknown) (no (unknown) (unknown) 2 g topical QID (units (unknown) date) Qty: 100 3RF unknown) (unknown) (no (unknown) (unknown) 200 mg PO DAILY (units (unknown) date) Qty: 30 2RF unknown) (unknown) (no (unknown) (unknown) 200 mg PO DAILY (units (unknown) date) Qty: 60 2RF unknown) (unknown) (no (unknown) (unknown) 21:09 11/15/22 (units (unknown) date) unknown) (unknown) (no (unknown) (unknown) 21:20 21:32 21:32 (units (unknown) date) unknown) (unknown) (no (unknown) (unknown) 21:32 21:32 (units (un known) date) unknown) (unknown) (no (unknown) (unknown) 22:00 (units (unkno wn) date) unknown) (unknown) (no (unknown) (unknown) 5 mg PO Q6H PRN (units (unknown) date) (Reason: pain) Qty: unknown) 14 0RF (unknown) (no (unknown) (unknown) 5 mg PO TID PRN (units (unknown) date) (Reason: muscle unknown) spasm) Qty: 10 0RF (unknown) (no (unknown) (unknown) 500 mg PO BID Qty: (units (unknown) date) 60 0RF unknown) (unknown) (no (unknown) (unknown) : [id number] (units (u nknown) date) unknown) (unknown) (no (unknown) (unknown) ALT (<35) IU/L (units (unknown) date) unknown) (unknown) (no (unknown) (unknown) ALT 16 (<35) IU/L (units (unknown) date) unknown) (unknown) (no (unknown) (unknown) AST (14-36) IU/L (units (unknown) date) unknown) (unknown) (no (unknown) (unknown) AST 16 (14-36) IU/L (unit s (unknown) date) unknown) (unknown) (no (unknown) (unknown) Age/Sex: 27 / F (units (unknown) date) unknown) (unknown) (no (unknown) (unknown) Albumin (3.5-5.0) (units (unknown) date) g/dL unknown) (unknown) (no (unknown) (unknown) Albumin 3.9 (units (un known) date) (3.5-5.0) g/dL unknown) (unknown) (no (unknown) (unknown) Albumin/Globulin (units (unknown) date) Ratio (1.0-2.8) unknown) (unknown) (no (unknown) (unknown) Albumin/Globulin (units (unknown) date) Ratio 1.6 (1.0-2.8) unknown) (unknown) (no (unknown) (unknown) Alkaline (units (unkno wn) date) Phosphatase (38-126) unknown) U/L (unknown) (no (unknown) (unknown) Alkaline (units (unkno wn) date) Phosphatase 43 unknown) (38-126) U/L (unknown) (no (unknown) (unknown) Allergies (units (unkn own) date) unknown) (unknown) (no (unknown) (unknown) Allergy/AdvReac (units (unknown) date) Type Severity unknown) Reaction Status Date / Time (unknown) (no (unknown) (unknown) 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 unknown) (unknown) (no (unknown) (unknown) BUN (7-17) mg/dL (units (unknown) date) unknown) (unknown) (no (unknown) (unknown) BUN 15 (7-17) mg/dL (unit s (unknown) date) unknown) (unknown) (no (unknown) (unknown) BUN/Creatinine (units (unknown) date) Ratio (6-22) unknown) (unknown) (no (unknown) (unknown) BUN/Creatinine (units (unknown) date) Ratio 17.2 (6-22) unknown) (unknown) (no (unknown) (unknown) Baso # (Auto) (units ( unknown) date) (0-100) /uL unknown) (unknown) (no (unknown) (unknown) Baso # (Auto) 100 (units (unknown) date) (0-100) /uL unknown) (unknown) (no (unknown) (unknown) Baso % (Auto) (0-2) (unit s (unknown) date) % unknown) (unknown) (no (unknown) (unknown) Baso % (Auto) 1.9 (units (unknown) date) (0-2) % unknown) (unknown) (no (unknown) (unknown) Bedside Urine (units ( unknown) date) Bilirubin - Negative unknown) (unknown) (no (unknown) (unknown) Bedside Urine (units ( unknown) date) Glucose Negative unknown) (unknown) (no (unknown) (unknown) Bedside Urine (units ( unknown) date) Ketone - Negative unknown) (unknown) (no (unknown) (unknown) Bedside Urine (units ( unknown) date) Leukocytes + 70 unknown) (unknown) (no (unknown) (unknown) Bedside Urine (units ( unknown) date) Nitrite - Negative unknown) (unknown) (no (unknown) (unknown) Bedside Urine (units ( unknown) date) Occult Blood - unknown) Negative (unknown) (no (unknown) (unknown) Bedside Urine (units ( unknown) date) Protein + 30 unknown) (unknown) (no (unknown) (unknown) Bedside Urine (units ( unknown) date) Urobilinogen +/- 1mg unknown) (unknown) (no (unknown) (unknown) Bedside Urine pH (units (unknown) date) 6.0 unknown) (unknown) (no (unknown) (unknown) Blood Pressure (units (unknown) date) 140/63 04/ unknown) 21:09 (unknown) (no (unknown) (unknown) Blood Pressure (units (unknown) date) 140/63 140/63 unknown) (unknown) (no (unknown) (unknown) Breast cancer (units ( unknown) date) unknown) (unknown) (no (unknown) (unknown) CAD (coronary (units ( unknown) date) artery disease) unknown) (unknown) (no (unknown) (unknown) CBC Auto Diff (units ( unknown) date) [Complete Blood unknown) Count AUTO DIFF] Stat (unknown) (no (unknown) (unknown) CMP [Comprehensive (units (unknown) date) Metabolic Panel] unknown) Stat (unknown) (no (unknown) (unknown) CT abdomen pelvis (units (unknown) date) wo con Stat unknown) (unknown) (no (unknown) (unknown) Calcium (8.4-10.2) (units (unknown) date) mg/dL unknown) (unknown) (no (unknown) (unknown) Calcium 8.3 L (units ( unknown) date) (8.4-10.2) mg/dL unknown) (unknown) (no (unknown) (unknown) Carbon Dioxide (units (unknown) date) (22-32) mmol/L unknown) (unknown) (no (unknown) (unknown) Carbon Dioxide 27 (units (unknown) date) (22-32) mmol/L unknown) (unknown) (no (unknown) (unknown) Chief Complaint: (units (unknown) date) Abdominal Pain unknown) (unknown) (no (unknown) (unknown) Chloride (98-107) (units (unknown) date) mmol/L unknown) (unknown) (no (unknown) (unknown) Chloride 103 (units (u nknown) date) (98-107) mmol/L unknown) (unknown) (no (unknown) (unknown) Contract void and (units (unknown) date) provider will offer unknown) no further tramadol refills if tramadol (unknown) (no (unknown) (unknown) Course (units (unkno wn) date) unknown) (unknown) (no (unknown) (unknown) Creatinine (units (unk nown) date) (0.52-1.04) mg/dL unknown) (unknown) (no (unknown) (unknown) Creatinine 0.87 (units (unknown) date) (0.52-1.04) mg/dL unknown) (unknown) (no (unknown) (unknown) : 1995 (units (unknown) date) Acct:[id number] unknown) (unknown) (no (unknown) (unknown) Date of Service: (units (unknown) date) 11/15/22 unknown) (unknown) (no (unknown) (unknown) Departure (units (unkn own) date) unknown) (unknown) (no (unknown) (unknown) Diphenhydramine HCl (unit s (unknown) date) (Diphenhydramine 50 unknown) Mg/Ml Vial) 25 mg IV NOW ONE (unknown) (no (unknown) (unknown) Discharge Plan (units (unknown) date) unknown) (unknown) (no (unknown) (unknown) Discontinued (units (u nknown) date) Medications unknown) (unknown) (no (unknown) (unknown) Documented By: SPF (units (unknown) date) unknown) (unknown) (no (unknown) (unknown) Dose Instruction: (units (unknown) date) unknown) (unknown) (no (unknown) (unknown) ED Orders (units (unkn own) date) unknown) (unknown) (no (unknown) (unknown) ER Physician: (units ( unknown) date) Stephie Escalante D.O. unknown) (unknown) (no (unknown) (unknown) Emergency Report (units (unknown) date) unknown) (unknown) (no (unknown) (unknown) Endometriosis (units ( unknown) date) unknown) (unknown) (no (unknown) (unknown) Eos # (Auto) (units (u nknown) date) (0-450) /uL unknown) (unknown) (no (unknown) (unknown) Eos # (Auto) 100 (units (unknown) date) (0-450) /uL unknown) (unknown) (no (unknown) (unknown) Eos % (Auto) (2-4) (units (unknown) date) % unknown) (unknown) (no (unknown) (unknown) Eos % (Auto) 2.0 (units (unknown) date) (2-4) % unknown) (unknown) (no (unknown) (unknown) Esterase (units (unkno wn) date) unknown) (unknown) (no (unknown) (unknown) Estimated GFR > 60 (units (unknown) date) (>60) mL/min unknown) (unknown) (no (unknown) (unknown) Estimated GFR (>60) (unit s (unknown) date) mL/min unknown) (unknown) (no (unknown) (unknown) Exam (units (unkno wn) date) unknown) (unknown) (no (unknown) (unknown) Family History (units (unknown) date) (Reviewed 05/05/22 @ unknown) 21:08 by Vargas Hill MD) (unknown) (no (unknown) (unknown) General (units (unkno wn) date) unknown) (unknown) (no (unknown) (unknown) Globulin (1.7-4.1) (units (unknown) date) g/dL unknown) (unknown) (no (unknown) (unknown) Globulin 2.5 (units (u nknown) date) (1.7-4.1) g/dL unknown) (unknown) (no (unknown) (unknown) Glucose (70-100) (units (unknown) date) mg/dL unknown) (unknown) (no (unknown) (unknown) Glucose 96 (70-100) (unit s (unknown) date) mg/dL unknown) (unknown) (no (unknown) (unknown) Grandmother (units (un known) date) Ovarian unknown) cancer (unknown) (no (unknown) (unknown) H/O unilateral (units (unknown) date) oophorectomy unknown) () (unknown) (no (unknown) (unknown) H/O: hysterectomy (units (unknown) date) unknown) (unknown) (no (unknown) (unknown) HPI - Abdominal (units (unknown) date) Pain unknown) (unknown) (no (unknown) (unknown) HPI narrative: (units (unknown) date) unknown) (unknown) (no (unknown) (unknown) Hct (36-46) % (units ( unknown) date) unknown) (unknown) (no (unknown) (unknown) Hct 35.8 L (36-46) (units (unknown) date) % unknown) (unknown) (no (unknown) (unknown) Hematuria (units (unkn own) date) unknown) (unknown) (no (unknown) (unknown) Hgb (12.0-16.0) (units (unknown) date) g/dL unknown) (unknown) (no (unknown) (unknown) Hgb 12.6 (units (unkno wn) date) (12.0-16.0) g/dL unknown) (unknown) (no (unknown) (unknown) History of Present (units (unknown) date) Illness unknown) (unknown) (no (unknown) (unknown) History of ureter (units (unknown) date) stent unknown) (unknown) (no (unknown) (unknown) Hold Instructions: (units (unknown) date) NEEDS TO SEE unknown) NEUROLOGY (unknown) (no (unknown) (unknown) Hold Instructions: (units (unknown) date) SEEN BY PSYCHIATRY unknown) (unknown) (no (unknown) (unknown) Home Medications (units (unknown) date) unknown) (unknown) (no (unknown) (unknown) Hydromorphone HCl (units (unknown) date) (Hydromorphone 1 Mg unknown) Inj) 1 mg IV NOW ONE (unknown) (no (unknown) (unknown) Hyperlipidemia (units (unknown) date) unknown) (unknown) (no (unknown) (unknown) Hypertension (units (u nknown) date) unknown) (unknown) (no (unknown) (unknown) INJECT (units (unkno wn) date) INTRAMUSCULARLY unknown) EVERY 20 MINUTES NEEDED FOR ANAPHYLAXIS UNTIL (unknown) (no (unknown) (unknown) IV DYE] (units (unkno wn) date) unknown) (unknown) (no (unknown) (unknown) Initial Vital Signs (unit s (unknown) date) unknown) (unknown) (no (unknown) (unknown) Initial Vital (units ( unknown) date) Signs: unknown) (unknown) (no (unknown) (unknown) Iodinated Contrast (units (unknown) date) Media Allergy unknown) Unknown Verified 04/22/22 14:44 (unknown) (no (unknown) (unknown) [facility] (units (unknown) date) [address] [place] [address] unknown) [place] [address] (unknown) (no (unknown) (unknown) Lab Data (units (unkno wn) date) unknown) (unknown) (no (unknown) (unknown) Lab Results (units (un known) date) unknown) (unknown) (no (unknown) (unknown) Labs: (units (unkno wn) date) unknown) (unknown) (no (unknown) (unknown) Lactate (0.7-2.1) (units (unknown) date) mmol/L unknown) (unknown) (no (unknown) (unknown) Lactate (Lactic (units (unknown) date) Acid) Stat unknown) (unknown) (no (unknown) (unknown) Lactate 1.2 (units (un known) date) (0.7-2.1) mmol/L unknown) (unknown) (no (unknown) (unknown) Last Admin: (units (un known) date) 11/15/22 22:00 Dose: unknown) 10 mg (unknown) (no (unknown) (unknown) Last Admin: (units (un known) date) 11/15/22 22:01 Dose: unknown) 40 mg (unknown) (no (unknown) (unknown) Last Admin: (units (un known) date) 11/15/22 22:21 Dose: unknown) Not Given (unknown) (no (unknown) (unknown) Last Admin: (units (un known) date) 11/15/22 22:24 Dose: unknown) 1,000 mls/hr (unknown) (no (unknown) (unknown) Limit as possible. (units (unknown) date) Prescribed per 03/21 unknown) signed pain management contract. (unknown) (no (unknown) (unknown) Lipase (23-300) U/L (unit s (unknown) date) unknown) (unknown) (no (unknown) (unknown) Lipase 86 (23-300) (units (unknown) date) U/L unknown) (unknown) (no (unknown) (unknown) Lipase Stat (units (un known) date) unknown) (unknown) (no (unknown) (unknown) Lymph # (Auto) (units (unknown) date) (5743-6786) /uL unknown) (unknown) (no (unknown) (unknown) Lymph # (Auto) 2200 (unit s (unknown) date) (3430-8152) /uL unknown) (unknown) (no (unknown) (unknown) Lymph % (Auto) (units (unknown) date) (25-40) % unknown) (unknown) (no (unknown) (unknown) Lymph % (Auto) 34.4 (unit s (unknown) date) (25-40) % unknown) (unknown) (no (unknown) (unknown) MCH (26-34) PG (units (unknown) date) unknown) (unknown) (no (unknown) (unknown) MCH 31.2 (26-34) PG (unit s (unknown) date) unknown) (unknown) (no (unknown) (unknown) MCHC (30-36) % (units (unknown) date) unknown) (unknown) (no (unknown) (unknown) MCHC 35.3 (30-36) % (unit s (unknown) date) unknown) (unknown) (no (unknown) (unknown) MCV (80-100) fL (units (unknown) date) unknown) (unknown) (no (unknown) (unknown) MCV 88.6 (80-100) (units (unknown) date) fL unknown) (unknown) (no (unknown) (unknown) MDM - Abdominal (units (unknown) date) Pain unknown) (unknown) (no (unknown) (unknown) Major depressive (units (unknown) date) disorder unknown) (unknown) (no (unknown) (unknown) Medical History (units (unknown) date) (Reviewed 05/05/22 @ unknown) 21:08 by Vargas Hill MD) (unknown) (no (unknown) (unknown) Medication (units (unk nown) date) Instructions unknown) Recorded Confirmed (unknown) (no (unknown) (unknown) Medication (units (unk nown) date) Instructions unknown) Recorded (unknown) (no (unknown) (unknown) Methylprednisolone (units (unknown) date) (Methylprednisolone unknown) 125 Mg/2 Ml Vial) 125 mg IV NOW ONE (unknown) (no (unknown) (unknown) [place] # (Auto) (units ( unknown) date) (0-900) /uL unknown) (unknown) (no (unknown) (unknown) [place] # (Auto) 400 (units (unknown) date) (0-900) /uL unknown) (unknown) (no (unknown) (unknown) [place] % (Auto) (units ( unknown) date) (3-14) % unknown) (unknown) (no (unknown) (unknown) [place] % (Auto) 6.9 (units (unknown) date) (3-14) % unknown) (unknown) (no (unknown) (unknown) Morbid obesity (units (unknown) date) unknown) (unknown) (no (unknown) (unknown) 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 unknown) (unknown) (no (unknown) (unknown) Nephrolithiasis (units (unknown) date) (-2018) unknown) (unknown) (no (unknown) (unknown) Neut # (Auto) (units ( unknown) date) (5019-0406) /uL unknown) (unknown) (no (unknown) (unknown) Neut # (Auto) 3500 (units (unknown) date) (4625-9773) /uL unknown) (unknown) (no (unknown) (unknown) Neut % (Auto) (units ( unknown) date) (50-75) % unknown) (unknown) (no (unknown) (unknown) Neut % (Auto) 54.8 (units (unknown) date) (50-75) % unknown) (unknown) (no (unknown) (unknown) No Action (units (unkn own) date) unknown) (unknown) (no (unknown) (unknown) Ordered: (units (unkno wn) date) unknown) (unknown) (no (unknown) (unknown) Orders (units (unkno wn) date) unknown) (unknown) (no (unknown) (unknown) Ovarian cyst (units (u nknown) date) unknown) (unknown) (no (unknown) (unknown) Oxygen Delivery (units (unknown) date) Method Room Air unknown) 11/15/22 21:09 (unknown) (no (unknown) (unknown) Oxygen Delivery (units (unknown) date) Method Room Air unknown) (unknown) (no (unknown) (unknown) PCOS (polycystic (units (unknown) date) ovarian syndrome) unknown) (unknown) (no (unknown) (unknown) Pantoprazole Sodium (unit s (unknown) date) (Pantoprazole 40 Mg unknown) Vial) 40 mg IV NOW ONE (unknown) (no (unknown) (unknown) Patellar (units (unkno wn) date) dislocation unknown) (unknown) (no (unknown) (unknown) Patient 27-year-old (unit s (unknown) date) female with unknown) significant history of anxiety, psychogenic (unknown) (no (unknown) (unknown) Patient History (units (unknown) date) unknown) (unknown) (no (unknown) (unknown) Patient: (units (unkno wn) date) Eileen Jorgensen unknown) MR# (unknown) (no (unknown) (unknown) Pelvic congestion (units (unknown) date) (2013) unknown) (unknown) (no (unknown) (unknown) Penicillins (units (un known) date) [PENICILLINS] unknown) Allergy Mild Verified 04/22/22 14:44 (unknown) (no (unknown) (unknown) Plt Count (150-400) (unit s (unknown) date) X103/uL unknown) (unknown) (no (unknown) (unknown) Plt Count 245 (units ( unknown) date) (150-400) X103/uL unknown) (unknown) (no (unknown) (unknown) Point of Care (units ( unknown) date) Testing unknown) (unknown) (no (unknown) (unknown) Point of care (units ( unknown) date) testing: unknown) (unknown) (no (unknown) (unknown) Potassium (3.4-5.1) (unit s (unknown) date) mmol/L unknown) (unknown) (no (unknown) (unknown) Potassium 3.6 (units ( unknown) date) (3.4-5.1) mmol/L unknown) (unknown) (no (unknown) (unknown) Test (units (unknown) date) Results Negative unknown) (unknown) (no (unknown) (unknown) Prescriptions: (units (unknown) date) unknown) (unknown) (no (unknown) (unknown) Previous Rx's (units ( unknown) date) unknown) (unknown) (no (unknown) (unknown) Procalcitonin < (units (unknown) date) 0.03 (<0.5) ng/mL unknown) (unknown) (no (unknown) (unknown) Procalcitonin (units ( unknown) date) (<0.5) ng/mL unknown) (unknown) (no (unknown) (unknown) Procalcitonin Stat (units (unknown) date) unknown) (unknown) (no (unknown) (unknown) Prochlorperazine (units (unknown) date) (Prochlorperazine 10 unknown) Mg/2 Ml Vial) 10 mg IV NOW ONE (unknown) (no (unknown) (unknown) 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 unknown) (unknown) (no (unknown) (unknown) Pulse Oximetry 97 (units (unknown) date) 11/15/22 21:09 unknown) (unknown) (no (unknown) (unknown) Pulse Oximetry 97 (units (unknown) date) unknown) (unknown) (no (unknown) (unknown) Pulse Rate 78 (units ( unknown) date) 11/15/22 21:09 unknown) (unknown) (no (unknown) (unknown) Pulse Rate 78 60 (units (unknown) date) unknown) (unknown) (no (unknown) (unknown) RBC (4.0-5.2) (units ( unknown) date) X106/uL unknown) (unknown) (no (unknown) (unknown) RBC 4.04 (4.0-5.2) (units (unknown) date) X106/uL unknown) (unknown) (no (unknown) (unknown) RDW (11.6-14.8) % (units (unknown) date) unknown) (unknown) (no (unknown) (unknown) RDW 12.7 (units (unkno wn) date) (11.6-14.8) % unknown) (unknown) (no (unknown) (unknown) RESPONSE (units (unkno wn) date) unknown) (unknown) (no (unknown) (unknown) Referrals: (units (unk nown) date) unknown) (unknown) (no (unknown) (unknown) Related Data (units (u nknown) date) unknown) (unknown) (no (unknown) (unknown) Respiratory Rate 16 (unit s (unknown) date) 11/15/22 21:09 unknown) (unknown) (no (unknown) (unknown) Respiratory Rate 16 (unit s (unknown) date) unknown) (unknown) (no (unknown) (unknown) Rx Instructions: (units (unknown) date) unknown) (unknown) (no (unknown) (unknown) See Rx Instructions (unit s (unknown) date) .ROUTE .COMPLEX Qty: unknown) 180 0RF (unknown) (no (unknown) (unknown) See Rx Instructions (unit s (unknown) date) .ROUTE .COMPLEX Qty: unknown) 2 0RF (unknown) (no (unknown) (unknown) See Rx Instructions (unit s (unknown) date) PO BEDTIME Qty: 45 unknown) 2RF (unknown) (no (unknown) (unknown) Signed By: (units (unk nown) date) unknown) (unknown) (no (unknown) (unknown) Smoking Status: (units (unknown) date) Current every day unknown) smoker (unknown) (no (unknown) (unknown) Social History (units (unknown) date) (Reviewed 05/05/22 @ unknown) 21:08 by Vargas Hill MD) (unknown) (no (unknown) (unknown) Sodium (137-145) (units (unknown) date) mmol/L unknown) (unknown) (no (unknown) (unknown) Sodium 136 L (units (u nknown) date) (137-145) mmol/L unknown) (unknown) (no (unknown) (unknown) Sodium Chloride (units (unknown) date) (Normal Saline 0.9%) unknown) 1,000 mls @ 1,000 mls/hr IV BOLUS ONE (unknown) (no (unknown) (unknown) Stated Complaint: (units (unknown) date) abdominal pain, unknown) vomiting blood (unknown) (no (unknown) (unknown) Status post (units [...] unknown) (unknown) (no (unknown) (unknown) Status post removal (unit s (unknown) date) of cervix unknown) (unknown) (no (unknown) (unknown) Status post (units (un known) date) tonsillectomy and unknown) adenoidectomy (unknown) (no (unknown) (unknown) Stop: 11/15/22 (units (unknown) date) 21:42 unknown) (unknown) (no (unknown) (unknown) Stop: 11/15/22 (units (unknown) date) 22:03 unknown) (unknown) (no (unknown) (unknown) Stop: 11/15/22 (units (unknown) date) 22:12 unknown) (unknown) (no (unknown) (unknown) Stop: 11/15/22 (units (unknown) date) 22:51 unknown) (unknown) (no (unknown) (unknown) Substance Use Type: (unit s (unknown) date) does not use unknown) (unknown) (no (unknown) (unknown) Surgical History (units (unknown) date) (Reviewed 05/05/22 @ unknown) 21:08 by Vargas Hill MD) (unknown) (no (unknown) (unknown) TAKE 2 TABLETS BY (units (unknown) date) MOUTH AT BEDTIME unknown) NEEDED FOR INSOMNIA (unknown) (no (unknown) (unknown) Take 1 tab p.o. at (units (unknown) date) HS. May take 1/2 tab unknown) p.o. during the day for anxiety (unknown) (no (unknown) (unknown) Temperature 97.6 F (units (unknown) date) 11/15/22 21:09 unknown) (unknown) (no (unknown) (unknown) Temperature 97.6 F (units (unknown) date) unknown) (unknown) (no (unknown) (unknown) Time Seen by (units (u nknown) date) Provider: 11/15/22 unknown) 21:09 (unknown) (no (unknown) (unknown) Total Bilirubin (units (unknown) date) (0.2-1.3) mg/dL unknown) (unknown) (no (unknown) (unknown) Total Bilirubin 0.5 (unit s (unknown) date) (0.2-1.3) mg/dL unknown) (unknown) (no (unknown) (unknown) Total Protein (units ( unknown) date) (6.3-8.2) g/dL unknown) (unknown) (no (unknown) (unknown) Total Protein 6.4 (units (unknown) date) (6.3-8.2) g/dL unknown) (unknown) (no (unknown) (unknown) UA Complete (units (un known) date) [Urinalysis and unknown) Microscopic] Stat (unknown) (no (unknown) (unknown) Ur Culture (units (unk nown) date) Indicated? Specimen unknown) cultured (unknown) (no (unknown) (unknown) Ur Culture (units (unk nown) date) Indicated? unknown) (unknown) (no (unknown) (unknown) Ur Leukocyte (units (u nknown) date) Esterase (NEGATIVE) unknown) (unknown) (no (unknown) (unknown) Ur Leukocyte (units (u nknown) date) Esterase 1+ H unknown) (NEGATIVE) (unknown) (no (unknown) (unknown) Ur Specific [place] (unit s (unknown) date) (1.000-1.035) unknown) (unknown) (no (unknown) (unknown) Ur Specific [place] (unit s (unknown) date) 1.025 (1.000-1.035) unknown) (unknown) (no (unknown) (unknown) Ur Squamous Epith (units (unknown) date) Cells (0-5/HPF) unknown) (unknown) (no (unknown) (unknown) Ur Squamous Epith (units (unknown) date) Cells 1-5 /hpf D unknown) (0-5/HPF) (unknown) (no (unknown) (unknown) Urine Appearance (units (unknown) date) Cloudy unknown) (unknown) (no (unknown) (unknown) Urine Appearance (units (unknown) date) unknown) (unknown) (no (unknown) (unknown) Urine Bacteria (units (unknown) date) (None) unknown) (unknown) (no (unknown) (unknown) Urine Bacteria (units (unknown) date) Occasional (0-1) unknown) (None) (unknown) (no (unknown) (unknown) Urine Bilirubin (units (unknown) date) (NEGATIVE) unknown) (unknown) (no (unknown) (unknown) Urine Bilirubin (units (unknown) date) Negative (NEGATIVE) unknown) (unknown) (no (unknown) (unknown) Urine Color Red (units (unknown) date) unknown) (unknown) (no (unknown) (unknown) Urine Color (units (un known) date) unknown) (unknown) (no (unknown) (unknown) Urine Culture Stat (units (unknown) date) unknown) (unknown) (no (unknown) (unknown) Urine Dip (units (unkn own) date) unknown) (unknown) (no (unknown) (unknown) Urine Glucose (UA) (units (unknown) date) (Negative) g/dL unknown) (unknown) (no (unknown) (unknown) Urine Glucose (UA) (units (unknown) date) Negative (Negative) unknown) g/dL (unknown) (no (unknown) (unknown) Urine Ketones (units ( unknown) date) (NEGATIVE) unknown) (unknown) (no (unknown) (unknown) Urine Ketones (units ( unknown) date) Negative (NEGATIVE) unknown) (unknown) (no (unknown) (unknown) Urine Nitrate (units ( unknown) date) (Negative) unknown) (unknown) (no (unknown) (unknown) Urine Nitrate (units ( unknown) date) Negative (Negative) unknown) (unknown) (no (unknown) (unknown) Urine Occult Blood (units (unknown) date) (Negative) unknown) (unknown) (no (unknown) (unknown) Urine Occult Blood (units (unknown) date) 3+ H (Negative) unknown) (unknown) (no (unknown) (unknown) Urine Protein (units ( unknown) date) (Negative) unknown) (unknown) (no (unknown) (unknown) Urine Protein 1+ H (units (unknown) date) (Negative) unknown) (unknown) (no (unknown) (unknown) Urine RBC >100/hpf (units (unknown) date) H (0-5/HPF) unknown) (unknown) (no (unknown) (unknown) Urine RBC (0-5/HPF) (unit s (unknown) date) unknown) (unknown) (no (unknown) (unknown) Urine Specific (units (unknown) date) [place] 1.020 unknown) (unknown) (no (unknown) (unknown) Urine Urobilinogen (units (unknown) date) (0.2) E.U./dL unknown) (unknown) (no (unknown) (unknown) Urine Urobilinogen (units (unknown) date) 1.0 (0.2) E.U./dL unknown) (unknown) (no (unknown) (unknown) Urine WBC (0-5/HPF) (unit s (unknown) date) unknown) (unknown) (no (unknown) (unknown) Urine WBC 1-5/hpf (units (unknown) date) (0-5/HPF) unknown) (unknown) (no (unknown) (unknown) Urine pH (4.5-8.0) (units (unknown) date) unknown) (unknown) (no (unknown) (unknown) Urine pH 6.5 (units (u nknown) date) (4.5-8.0) unknown) (unknown) (no (unknown) (unknown) Vital Signs - 8 hr (units (unknown) date) unknown) (unknown) (no (unknown) (unknown) Vital Signs (units (un known) date) unknown) (unknown) (no (unknown) (unknown) Vital signs: (units (u nknown) date) unknown) (unknown) (no (unknown) (unknown) WBC (4.5-11.0) (units (unknown) date) X103/uL unknown) (unknown) (no (unknown) (unknown) WBC 6.4 (4.5-11.0) (units (unknown) date) X103/uL unknown) (unknown) (no (unknown) (unknown) Christi Johnson (units (unknown) date) L, DNP, [employer] unknown) [Primary Care Provider] (unknown) (no (unknown) (unknown) [Embedded Image Not (unit s (unknown) date) Available] unknown) (unknown) (no (unknown) (unknown) [From BACTRIM] (units (unknown) date) unknown) (unknown) (no (unknown) (unknown) [IODINATED CONTRAST (unit s (unknown) date) MEDIA unknown) (unknown) (no (unknown) (unknown) [METOCLOPRAMIDE] (units (unknown) date) unknown) (unknown) (no (unknown) (unknown) [SHELLFISH DERIVED] (unit s (unknown) date) unknown) (unknown) (no (unknown) (unknown) adhesive [ADHESIVE] (unit s (unknown) date) Allergy Mild unknown) Verified 04/22/22 14:44 (unknown) (no (unknown) (unknown) alcohol intake (units (unknown) date) frequency: unknown) holidays/special occasions only (unknown) (no (unknown) (unknown) amoxicillin (units (un known) date) [AMOXICILLIN] unknown) Allergy Mild Verified 04/22/22 14:44 (unknown) (no (unknown) (unknown) apply to single (units (unknown) date) elbow, wrist or unknown) hand; for hand includes palm/fingers/back of (unknown) (no (unknown) (unknown) cephalexin (units (unk nown) date) [CEPHALEXIN] Allergy unknown) Unknown Verified 04/22/22 14:44 (unknown) (no (unknown) (unknown) ciprofloxacin (units ( unknown) date) [CIPROFLOXACIN] unknown) Allergy Unknown Verified 04/22/22 14:44 (unknown) (no (unknown) (unknown) clindamycin (units (un known) date) [CLINDAMYCIN] unknown) Allergy Unknown Verified 04/22/22 14:44 (unknown) (no (unknown) (unknown) diazepam 10 mg (units (unknown) date) tablet 10 mg PO QID unknown) #120 tabs 10/12/21 (unknown) (no (unknown) (unknown) diazepam 10 mg (units (unknown) date) tablet unknown) (unknown) (no (unknown) (unknown) diazepam 5 mg (units ( unknown) date) tablet (Valium) 5 mg unknown) PO TID PRN muscle spasm #10 10/19/21 (unknown) (no (unknown) (unknown) diazepam [Valium] 5 (unit s (unknown) date) mg tablet unknown) (unknown) (no (unknown) (unknown) diclofenac sodium 1 (unit s (unknown) date) % gel unknown) (unknown) (no (unknown) (unknown) diclofenac sodium 1 (unit s (unknown) date) % topical gel 2 g unknown) topical QID #100 grams 05/05/22 (unknown) (no (unknown) (unknown) doxycycline (units (un known) date) [DOXYCYCLINE] unknown) Allergy Mild Verified 04/22/22 14:44 (unknown) (no (unknown) (unknown) epinephrine 0.3 (units (unknown) date) mg/0.3 mL See Rx unknown) Instructions .Route 02/27/22 (unknown) (no (unknown) (unknown) epinephrine 0.3 (units (unknown) date) mg/0.3 mL unknown) auto-injector (unknown) (no (unknown) (unknown) hand (units (unkno wn) date) unknown) (unknown) (no (unknown) (unknown) hormone history of (units (unknown) date) vaginal bleeding unknown) despite hysterectomy (unknown) (no (unknown) (unknown) household members: (units (unknown) date) spouse and children unknown) (unknown) (no (unknown) (unknown) hydrocodone Allergy (unit s (unknown) date) Mild rash Verified unknown) 04/22/22 14:44 (unknown) (no (unknown) (unknown) injection, (units (unk nown) date) auto-injector unknown) .COMPLEX #2 ea (unknown) (no (unknown) (unknown) iodine [IODINE] (units (unknown) date) Allergy Mild unknown) Verified 04/22/22 14:44 (unknown) (no (unknown) (unknown) lamotrigine 200 mg (units (unknown) date) tablet 200 mg PO unknown) DAILY #30 tabs 01/18/22 (unknown) (no (unknown) (unknown) lamotrigine 200 mg (units (unknown) date) tablet unknown) (unknown) (no (unknown) (unknown) latex [LATEX] (units ( unknown) date) Allergy Unknown unknown) Verified 04/22/22 14:44 (unknown) (no (unknown) (unknown) lidocaine AdvReac (units (unknown) date) Palpitation Verified unknown) 04/22/22 14:44 (unknown) (no (unknown) (unknown) lives (units (unkno wn) date) independently: Yes unknown) (unknown) (no (unknown) (unknown) marital status: (units (unknown) date) unknown) (unknown) (no (unknown) (unknown) metformin 500 mg (units (unknown) date) tablet 500 mg PO BID unknown) #60 tabs 02/21/22 (unknown) (no (unknown) (unknown) metformin 500 mg (units (unknown) date) tablet unknown) (unknown) (no (unknown) (unknown) metoclopramide (units (unknown) date) Allergy Mild unknown) Verified 04/22/22 14:44 (unknown) (no (unknown) (unknown) mg tablet (units (unkn own) date) (Percocet) unknown) (unknown) (no (unknown) (unknown) neuroleptic (units (un known) date) seizures, PTSD unknown) depression, erosive gastritis causing hematemesis (unknown) (no (unknown) (unknown) occupational (units (u nknown) date) status: employed unknown) (unknown) (no (unknown) (unknown) oxycodone 10 mg (units (unknown) date) tablet 5 mg PO Q6H unknown) PRN pain #14 tabs 05/05/22 (unknown) (no (unknown) (unknown) oxycodone 10 mg (units (unknown) date) tablet unknown) (unknown) (no (unknown) (unknown) oxycodone-acetamino (unit s (unknown) date) phen 5 mg-325 1 tab unknown) PO Q8H PRN pain #6 tabs 04/22/22 (unknown) (no (unknown) (unknown) oxycodone-acetamino (unit s (unknown) date) phen [Percocet] unknown) 5-325 mg tablet (unknown) (no (unknown) (unknown) quetiapine 100 mg (units (unknown) date) tablet 100 mg PO unknown) BEDTIME 02/27/22 02/27/22 (unknown) (no (unknown) (unknown) quetiapine 100 mg (units (unknown) date) tablet unknown) (unknown) (no (unknown) (unknown) quetiapine 25 mg (units (unknown) date) tablet See Rx unknown) Instructions PO BEDTIME #45 01/18/22 (unknown) (no (unknown) (unknown) quetiapine 25 mg (units (unknown) date) tablet unknown) (unknown) (no (unknown) (unknown) received per (units (u nknown) date) another provider. unknown) (unknown) (no (unknown) (unknown) s (units (unkno wn) date) unknown) (unknown) (no (unknown) (unknown) sertraline 100 mg (units (unknown) date) tablet 200 mg PO unknown) DAILY #60 tabs 01/18/22 (unknown) (no (unknown) (unknown) sertraline 100 mg (units (unknown) date) tablet unknown) (unknown) (no (unknown) (unknown) shellfish derived (units (unknown) date) Allergy Severe unknown) ANAPHYLAXIS Verified 04/22/22 14:44 (unknown) (no (unknown) (unknown) sulfamethoxazole (units (unknown) date) Allergy Mild RASH unknown) Verified 04/22/22 14:44 (unknown) (no (unknown) (unknown) tabs (units (unkno wn) date) unknown) (unknown) (no (unknown) (unknown) tobacco type: (units ( unknown) date) vaping unknown) (unknown) (no (unknown) (unknown) tramadol 50 mg (units (unknown) date) tablet 100 mg PO BID unknown) PRN severe pain 03/22/22 (unknown) (no (unknown) (unknown) tramadol 50 mg (units (unknown) date) tablet unknown) (unknown) (no (unknown) (unknown) trazodone 100 mg (units (unknown) date) tablet See Rx unknown) Instructions .Route 11/20/21 (unknown) (no (unknown) (unknown) trazodone 100 mg (units (unknown) date) tablet unknown) (unknown) (no (unknown) (unknown) trimethoprim [From (units (unknown) date) BACTRIM] Allergy unknown) Mild RASH Verified 04/22/22 14:44 Result panel [id number] (unknown) (no (unknown) (unknown) (no value) (units (unk nown) date) unknown) (unknown) (no (unknown) (unknown) (scale score 7-10) (units (unknown) date) #60 tabs unknown) (unknown) (no (unknown) (unknown) .COMPLEX #180 tabs (units (unknown) date) unknown) (unknown) (no (unknown) (unknown) 11/15/22 11/15/22 (units (unknown) date) 11/15/22 Range/Units unknown) (unknown) (no (unknown) (unknown) 11/15/22 11/15/22 (units (unknown) date) Range/Units unknown) (unknown) (no (unknown) (unknown) 11/15/22 21:20 (units (unknown) date) unknown) (unknown) (no (unknown) (unknown) 11/15/22 21:32 (units (unknown) date) unknown) (unknown) (no (unknown) (unknown) 11/15/22 22:00 (units (unknown) date) unknown) (unknown) (no (unknown) (unknown) 11/15/22 (units (unkno wn) date) unknown) (unknown) (no (unknown) (unknown) 1 tab PO Q8H PRN (units (unknown) date) (Reason: pain) Qty: unknown) 6 0RF (unknown) (no (unknown) (unknown) 10 mg PO QID Qty: (units (unknown) date) 120 2RF unknown) (unknown) (no (unknown) (unknown) 100 mg PO BEDTIME (units (unknown) date) unknown) (unknown) (no (unknown) (unknown) 100 mg PO BID PRN (units (unknown) date) (Reason: severe pain unknown) (scale score 7-10)) Qty: 60 0RF (unknown) (no (unknown) (unknown) 2 g topical QID (units (unknown) date) Qty: 100 3RF unknown) (unknown) (no (unknown) (unknown) 200 mg PO DAILY (units (unknown) date) Qty: 30 2RF unknown) (unknown) (no (unknown) (unknown) 200 mg PO DAILY (units (unknown) date) Qty: 60 2RF unknown) (unknown) (no (unknown) (unknown) 21:09 11/15/22 (units (unknown) date) unknown) (unknown) (no (unknown) (unknown) 21:20 21:32 21:32 (units (unknown) date) unknown) (unknown) (no (unknown) (unknown) 21:32 21:32 (units (un known) date) unknown) (unknown) (no (unknown) (unknown) 22:00 (units (unkno wn) date) unknown) (unknown) (no (unknown) (unknown) 5 mg PO Q6H PRN (units (unknown) date) (Reason: pain) Qty: unknown) 14 0RF (unknown) (no (unknown) (unknown) 5 mg PO TID PRN (units (unknown) date) (Reason: muscle unknown) spasm) Qty: 10 0RF (unknown) (no (unknown) (unknown) 500 mg PO BID Qty: (units (unknown) date) 60 0RF unknown) (unknown) (no (unknown) (unknown) : [id number] (units (u nknown) date) unknown) (unknown) (no (unknown) (unknown) ABDOMEN: Soft, (units (unknown) date) nontender. unknown) Normoactive bowel sounds all 4 quadrants. No (unknown) (no (unknown) (unknown) ALT (<35) IU/L (units (unknown) date) unknown) (unknown) (no (unknown) (unknown) ALT 16 (<35) IU/L (units (unknown) date) unknown) (unknown) (no (unknown) (unknown) AST (14-36) IU/L (units (unknown) date) unknown) (unknown) (no (unknown) (unknown) AST 16 (14-36) IU/L (unit s (unknown) date) unknown) (unknown) (no (unknown) (unknown) Age/Sex: 27 / F (units (unknown) date) unknown) (unknown) (no (unknown) (unknown) Albumin (3.5-5.0) (units (unknown) date) g/dL unknown) (unknown) (no (unknown) (unknown) Albumin 3.9 (units (un known) date) (3.5-5.0) g/dL unknown) (unknown) (no (unknown) (unknown) Albumin/Globulin (units (unknown) date) Ratio (1.0-2.8) unknown) (unknown) (no (unknown) (unknown) Albumin/Globulin (units (unknown) date) Ratio 1.6 (1.0-2.8) unknown) (unknown) (no (unknown) (unknown) Alkaline (units (unkno wn) date) Phosphatase (38-126) unknown) U/L (unknown) (no (unknown) (unknown) Alkaline (units (unkno wn) date) Phosphatase 43 unknown) (38-126) U/L (unknown) (no (unknown) (unknown) Allergies (units (unkn own) date) unknown) (unknown) (no (unknown) (unknown) Allergy/AdvReac (units (unknown) date) Type Severity unknown) Reaction Status Date / Time (unknown) (no (unknown) (unknown) 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 unknown) (unknown) (no (unknown) (unknown) BUN (7-17) mg/dL (units (unknown) date) unknown) (unknown) (no (unknown) (unknown) BUN 15 (7-17) mg/dL (unit s (unknown) date) unknown) (unknown) (no (unknown) (unknown) BUN/Creatinine (units (unknown) date) Ratio (6-22) unknown) (unknown) (no (unknown) (unknown) BUN/Creatinine (units (unknown) date) Ratio 17.2 (6-22) unknown) (unknown) (no (unknown) (unknown) Baso # (Auto) (units ( unknown) date) (0-100) /uL unknown) (unknown) (no (unknown) (unknown) Baso # (Auto) 100 (units (unknown) date) (0-100) /uL unknown) (unknown) (no (unknown) (unknown) Baso % (Auto) (0-2) (unit s (unknown) date) % unknown) (unknown) (no (unknown) (unknown) Baso % (Auto) 1.9 (units (unknown) date) (0-2) % unknown) (unknown) (no (unknown) (unknown) Bedside Urine (units ( unknown) date) Bilirubin - Negative unknown) (unknown) (no (unknown) (unknown) Bedside Urine (units ( unknown) date) Glucose Negative unknown) (unknown) (no (unknown) (unknown) Bedside Urine (units ( unknown) date) Ketone - Negative unknown) (unknown) (no (unknown) (unknown) Bedside Urine (units ( unknown) date) Leukocytes + 70 unknown) (unknown) (no (unknown) (unknown) Bedside Urine (units ( unknown) date) Nitrite - Negative unknown) (unknown) (no (unknown) (unknown) Bedside Urine (units ( unknown) date) Occult Blood - unknown) Negative (unknown) (no (unknown) (unknown) Bedside Urine (units ( unknown) date) Protein + 30 unknown) (unknown) (no (unknown) (unknown) Bedside Urine (units ( unknown) date) Urobilinogen +/- 1mg unknown) (unknown) (no (unknown) (unknown) Bedside Urine pH (units (unknown) date) 6.0 unknown) (unknown) (no (unknown) (unknown) Blood Pressure (units (unknown) date) 140/63 11/15/22 unknown) 21:09 (unknown) (no (unknown) (unknown) Blood Pressure (units (unknown) date) 140/63 140/63 unknown) (unknown) (no (unknown) (unknown) Breast cancer (units ( unknown) date) unknown) (unknown) (no (unknown) (unknown) CAD (coronary (units ( unknown) date) artery disease) unknown) (unknown) (no (unknown) (unknown) CARDIOVASCULAR: (units (unknown) date) Regular rate and unknown) rhythm without murmurs, rubs or gallops. (unknown) (no (unknown) (unknown) CBC Auto Diff (units ( unknown) date) [Complete Blood unknown) Count AUTO DIFF] Stat (unknown) (no (unknown) (unknown) CMP [Comprehensive (units (unknown) date) Metabolic Panel] unknown) Stat (unknown) (no (unknown) (unknown) CT abdomen pelvis (units (unknown) date) wo con Stat unknown) (unknown) (no (unknown) (unknown) Calcium (8.4-10.2) (units (unknown) date) mg/dL unknown) (unknown) (no (unknown) (unknown) Calcium 8.3 L (units ( unknown) date) (8.4-10.2) mg/dL unknown) (unknown) (no (unknown) (unknown) Carbon Dioxide (units (unknown) date) (22-32) mmol/L unknown) (unknown) (no (unknown) (unknown) Carbon Dioxide 27 (units (unknown) date) (22-32) mmol/L unknown) (unknown) (no (unknown) (unknown) Chief Complaint: (units (unknown) date) Abdominal Pain unknown) (unknown) (no (unknown) (unknown) Chloride (98-107) (units (unknown) date) mmol/L unknown) (unknown) (no (unknown) (unknown) Chloride 103 (units (u nknown) date) (98-107) mmol/L unknown) (unknown) (no (unknown) (unknown) Contract void and (units (unknown) date) provider will offer unknown) no further tramadol refills if tramadol (unknown) (no (unknown) (unknown) Course (units (unkno wn) date) unknown) (unknown) (no (unknown) (unknown) Creatinine (units (unk nown) date) (0.52-1.04) mg/dL unknown) (unknown) (no (unknown) (unknown) Creatinine 0.87 (units (unknown) date) (0.52-1.04) mg/dL unknown) (unknown) (no (unknown) (unknown) : 1995 (units (unknown) date) Acct:[id number] unknown) (unknown) (no (unknown) (unknown) Date of Service: (units (unknown) date) 11/15/22 unknown) (unknown) (no (unknown) (unknown) Departure (units (unkn own) date) unknown) (unknown) (no (unknown) (unknown) Diphenhydramine HCl (unit s (unknown) date) (Diphenhydramine 50 unknown) Mg/Ml Vial) 25 mg IV NOW ONE (unknown) (no (unknown) (unknown) Discharge Plan (units (unknown) date) unknown) (unknown) (no (unknown) (unknown) Discontinued (units (u nknown) date) Medications unknown) (unknown) (no (unknown) (unknown) Documented By: SPF (units (unknown) date) unknown) (unknown) (no (unknown) (unknown) Dose Instruction: (units (unknown) date) unknown) (unknown) (no (unknown) (unknown) ED Orders (units (unkn own) date) unknown) (unknown) (no (unknown) (unknown) ER Physician: (units ( unknown) date) Stephie Escalante D.O. unknown) (unknown) (no (unknown) (unknown) EXTREMITIES: Normal (unit s (unknown) date) range of motion, no unknown) clubbing or edema. Neurovascularly (unknown) (no (unknown) (unknown) Emergency Report (units (unknown) date) unknown) (unknown) (no (unknown) (unknown) Endometriosis (units ( unknown) date) unknown) (unknown) (no (unknown) (unknown) Eos # (Auto) (units (u nknown) date) (0-450) /uL unknown) (unknown) (no (unknown) (unknown) Eos # (Auto) 100 (units (unknown) date) (0-450) /uL unknown) (unknown) (no (unknown) (unknown) Eos % (Auto) (2-4) (units (unknown) date) % unknown) (unknown) (no (unknown) (unknown) Eos % (Auto) 2.0 (units (unknown) date) (2-4) % unknown) (unknown) (no (unknown) (unknown) Esterase (units (unkno wn) date) unknown) (unknown) (no (unknown) (unknown) Estimated GFR > 60 (units (unknown) date) (>60) mL/min unknown) (unknown) (no (unknown) (unknown) Estimated GFR (>60) (unit s (unknown) date) mL/min unknown) (unknown) (no (unknown) (unknown) Exam (units (unkno wn) date) unknown) (unknown) (no (unknown) (unknown) Family History (units (unknown) date) (Reviewed 05/05/22 @ unknown) 21:08 by Vargas Hill MD) (unknown) (no (unknown) (unknown) GENERAL: (units (unkno wn) date) [Well-appearing, unknown) well-nourished] and in [no acute] distress. (unknown) (no (unknown) (unknown) : No CVA (units (unk nown) date) tenderness unknown) (unknown) (no (unknown) (unknown) General (units (unkno wn) date) unknown) (unknown) (no (unknown) (unknown) Globulin (1.7-4.1) (units (unknown) date) g/dL unknown) (unknown) (no (unknown) (unknown) Globulin 2.5 (units (u nknown) date) (1.7-4.1) g/dL unknown) (unknown) (no (unknown) (unknown) Glucose (70-100) (units (unknown) date) mg/dL unknown) (unknown) (no (unknown) (unknown) Glucose 96 (70-100) (unit s (unknown) date) mg/dL unknown) (unknown) (no (unknown) (unknown) Grandmother (units (un known) date) Ovarian unknown) cancer (unknown) (no (unknown) (unknown) H/O unilateral (units (unknown) date) oophorectomy unknown) () (unknown) (no (unknown) (unknown) H/O: hysterectomy (units (unknown) date) unknown) (unknown) (no (unknown) (unknown) HEENT: Head (units (un known) date) atraumatic,EOMI, unknown) pupils reactive, face symmetric, [moist] mucous (unknown) (no (unknown) (unknown) HPI - Abdominal (units (unknown) date) Pain unknown) (unknown) (no (unknown) (unknown) HPI narrative: (units (unknown) date) unknown) (unknown) (no (unknown) (unknown) Hct (36-46) % (units ( unknown) date) unknown) (unknown) (no (unknown) (unknown) Hct 35.8 L (36-46) (units (unknown) date) % unknown) (unknown) (no (unknown) (unknown) Hematuria (units (unkn own) date) unknown) (unknown) (no (unknown) (unknown) Hgb (12.0-16.0) (units (unknown) date) g/dL unknown) (unknown) (no (unknown) (unknown) Hgb 12.6 (units (unkno wn) date) (12.0-16.0) g/dL unknown) (unknown) (no (unknown) (unknown) History of Present (units (unknown) date) Illness unknown) (unknown) (no (unknown) (unknown) History of ureter (units (unknown) date) stent unknown) (unknown) (no (unknown) (unknown) Hold Instructions: (units (unknown) date) NEEDS TO SEE unknown) NEUROLOGY (unknown) (no (unknown) (unknown) Hold Instructions: (units (unknown) date) SEEN BY PSYCHIATRY unknown) (unknown) (no (unknown) (unknown) Home Medications (units (unknown) date) unknown) (unknown) (no (unknown) (unknown) Hydromorphone HCl (units (unknown) date) (Hydromorphone 1 Mg unknown) Inj) 1 mg IV NOW ONE (unknown) (no (unknown) (unknown) Hyperlipidemia (units (unknown) date) unknown) (unknown) (no (unknown) (unknown) Hypertension (units (u nknown) date) unknown) (unknown) (no (unknown) (unknown) INJECT (units (unkno wn) date) INTRAMUSCULARLY unknown) EVERY 20 MINUTES NEEDED FOR ANAPHYLAXIS UNTIL (unknown) (no (unknown) (unknown) IV DYE] (units (unkno wn) date) unknown) (unknown) (no (unknown) (unknown) Initial Vital Signs (unit s (unknown) date) unknown) (unknown) (no (unknown) (unknown) Initial Vital (units ( unknown) date) Signs: unknown) (unknown) (no (unknown) (unknown) Iodinated Contrast (units (unknown) date) Media Allergy unknown) Unknown Verified 04/22/22 14:44 (unknown) (no (unknown) (unknown) [facility] (units (unknown) date) [address] unknown) [place] [address] (unknown) (no (unknown) (unknown) Lab Data (units (unkno wn) date) unknown) (unknown) (no (unknown) (unknown) Lab Results (units (un known) date) unknown) (unknown) (no (unknown) (unknown) Labs: (units (unkno wn) date) unknown) (unknown) (no (unknown) (unknown) Lactate (0.7-2.1) (units (unknown) date) mmol/L unknown) (unknown) (no (unknown) (unknown) Lactate (Lactic (units (unknown) date) Acid) Stat unknown) (unknown) (no (unknown) (unknown) Lactate 1.2 (units (un known) date) (0.7-2.1) mmol/L unknown) (unknown) (no (unknown) (unknown) Last Admin: (units (un known) date) 11/15/22 22:00 Dose: unknown) 10 mg (unknown) (no (unknown) (unknown) Last Admin: (units (un known) date) 11/15/22 22:01 Dose: unknown) 40 mg (unknown) (no (unknown) (unknown) Last Admin: (units (un known) date) 11/15/22 22:21 Dose: unknown) Not Given (unknown) (no (unknown) (unknown) Last Admin: (units (un known) date) 11/15/22 22:24 Dose: unknown) 1,000 mls/hr (unknown) (no (unknown) (unknown) Limit as possible. (units (unknown) date) Prescribed per 03/21 unknown) signed pain management contract. (unknown) (no (unknown) (unknown) Lipase (23-300) U/L (unit s (unknown) date) unknown) (unknown) (no (unknown) (unknown) Lipase 86 (23-300) (units (unknown) date) U/L unknown) (unknown) (no (unknown) (unknown) Lipase Stat (units (un known) date) unknown) (unknown) (no (unknown) (unknown) Lymph # (Auto) (units (unknown) date) (1804-4849) /uL unknown) (unknown) (no (unknown) (unknown) Lymph # (Auto) 2200 (unit s (unknown) date) (0257-6733) /uL unknown) (unknown) (no (unknown) (unknown) Lymph % (Auto) (units (unknown) date) (25-40) % unknown) (unknown) (no (unknown) (unknown) Lymph % (Auto) 34.4 (unit s (unknown) date) (25-40) % unknown) (unknown) (no (unknown) (unknown) MCH (26-34) PG (units (unknown) date) unknown) (unknown) (no (unknown) (unknown) MCH 31.2 (26-34) PG (unit s (unknown) date) unknown) (unknown) (no (unknown) (unknown) MCHC (30-36) % (units (unknown) date) unknown) (unknown) (no (unknown) (unknown) MCHC 35.3 (30-36) % (unit s (unknown) date) unknown) (unknown) (no (unknown) (unknown) MCV (80-100) fL (units (unknown) date) unknown) (unknown) (no (unknown) (unknown) MCV 88.6 (80-100) (units (unknown) date) fL unknown) (unknown) (no (unknown) (unknown) MDM - Abdominal (units (unknown) date) Pain unknown) (unknown) (no (unknown) (unknown) Major depressive (units (unknown) date) disorder unknown) (unknown) (no (unknown) (unknown) Medical History (units (unknown) date) (Reviewed 05/05/22 @ unknown) 21:08 by Vargas Hill MD) (unknown) (no (unknown) (unknown) Medication (units (unk nown) date) Instructions unknown) Recorded Confirmed (unknown) (no (unknown) (unknown) Medication (units (unk nown) date) Instructions unknown) Recorded (unknown) (no (unknown) (unknown) Methylprednisolone (units (unknown) date) (Methylprednisolone unknown) 125 Mg/2 Ml Vial) 125 mg IV NOW ONE (unknown) (no (unknown) (unknown) [place] # (Auto) (units ( unknown) date) (0-900) /uL unknown) (unknown) (no (unknown) (unknown) [place] # (Auto) 400 (units (unknown) date) (0-900) /uL unknown) (unknown) (no (unknown) (unknown) [place] % (Auto) (units ( unknown) date) (3-14) % unknown) (unknown) (no (unknown) (unknown) [place] % (Auto) 6.9 (units (unknown) date) (3-14) % unknown) (unknown) (no (unknown) (unknown) Morbid obesity (units (unknown) date) unknown) (unknown) (no (unknown) (unknown) 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 Cranial nerves II (unknown) (no (unknown) (unknown) Nephrolithiasis (units (unknown) date) (-2018) unknown) (unknown) (no (unknown) (unknown) Neut # (Auto) (units ( unknown) date) (9886-6938) /uL unknown) (unknown) (no (unknown) (unknown) Neut # (Auto) 3500 (units (unknown) date) (3642-7534) /uL unknown) (unknown) (no (unknown) (unknown) Neut % (Auto) (units ( unknown) date) (50-75) % unknown) (unknown) (no (unknown) (unknown) Neut % (Auto) 54.8 (units (unknown) date) (50-75) % unknown) (unknown) (no (unknown) (unknown) No Action (units (unkn own) date) unknown) (unknown) (no (unknown) (unknown) Ordered: (units (unkno wn) date) unknown) (unknown) (no (unknown) (unknown) Orders (units (unkno wn) date) unknown) (unknown) (no (unknown) (unknown) Ovarian cyst (units (u nknown) date) unknown) (unknown) (no (unknown) (unknown) Oxygen Delivery (units (unknown) date) Method Room Air unknown) 11/15/22 21:09 (unknown) (no (unknown) (unknown) Oxygen Delivery (units (unknown) date) Method Room Air unknown) (unknown) (no (unknown) (unknown) PCOS (polycystic (units (unknown) date) ovarian syndrome) unknown) (unknown) (no (unknown) (unknown) Pantoprazole Sodium (unit s (unknown) date) (Pantoprazole 40 Mg unknown) Vial) 40 mg IV NOW ONE (unknown) (no (unknown) (unknown) Patellar (units (unkno wn) date) dislocation unknown) (unknown) (no (unknown) (unknown) Patient 27-year-old (unit s (unknown) date) female with unknown) significant history of anxiety, psychogenic (unknown) (no (unknown) (unknown) Patient History (units (unknown) date) unknown) (unknown) (no (unknown) (unknown) Patient: (units (unkno wn) date) Eileen Jorgensen M unknown) MR# (unknown) (no (unknown) (unknown) Pelvic congestion (units (unknown) date) (2013) unknown) (unknown) (no (unknown) (unknown) Penicillins (units (un known) date) [PENICILLINS] unknown) Allergy Mild Verified 04/22/22 14:44 (unknown) (no (unknown) (unknown) Plt Count (150-400) (unit s (unknown) date) X103/uL unknown) (unknown) (no (unknown) (unknown) Plt Count 245 (units ( unknown) date) (150-400) X103/uL unknown) (unknown) (no (unknown) (unknown) Point of Care (units ( unknown) date) Testing unknown) (unknown) (no (unknown) (unknown) Point of care (units ( unknown) date) testing: unknown) (unknown) (no (unknown) (unknown) Potassium (3.4-5.1) (unit s (unknown) date) mmol/L unknown) (unknown) (no (unknown) (unknown) Potassium 3.6 (units ( unknown) date) (3.4-5.1) mmol/L unknown) (unknown) (no (unknown) (unknown) Test (units (unknown) date) Results Negative unknown) (unknown) (no (unknown) (unknown) Prescriptions: (units (unknown) date) unknown) (unknown) (no (unknown) (unknown) Previous Rx's (units ( unknown) date) unknown) (unknown) (no (unknown) (unknown) Procalcitonin < (units (unknown) date) 0.03 (<0.5) ng/mL unknown) (unknown) (no (unknown) (unknown) Procalcitonin (units ( unknown) date) (<0.5) ng/mL unknown) (unknown) (no (unknown) (unknown) Procalcitonin Stat (units (unknown) date) unknown) (unknown) (no (unknown) (unknown) Prochlorperazine (units (unknown) date) (Prochlorperazine 10 unknown) Mg/2 Ml Vial) 10 mg IV NOW ONE (unknown) (no (unknown) (unknown) 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 unknown) (unknown) (no (unknown) (unknown) Pulse Oximetry 97 (units (unknown) date) 11/15/22 21:09 unknown) (unknown) (no (unknown) (unknown) Pulse Oximetry 97 (units (unknown) date) unknown) (unknown) (no (unknown) (unknown) Pulse Rate 78 (units ( unknown) date) 11/15/22 21:09 unknown) (unknown) (no (unknown) (unknown) Pulse Rate 78 60 (units (unknown) date) unknown) (unknown) (no (unknown) (unknown) RBC (4.0-5.2) (units ( unknown) date) X106/uL unknown) (unknown) (no (unknown) (unknown) RBC 4.04 (4.0-5.2) (units (unknown) date) X106/uL unknown) (unknown) (no (unknown) (unknown) RDW (11.6-14.8) % (units (unknown) date) unknown) (unknown) (no (unknown) (unknown) RDW 12.7 (units (unkno wn) date) (11.6-14.8) % unknown) (unknown) (no (unknown) (unknown) RESPIRATORY: Breath (unit s (unknown) date) sounds equal unknown) bilaterally, no wheezes rales or rhonchi. (unknown) (no (unknown) (unknown) RESPONSE (units (unkno wn) date) unknown) (unknown) (no (unknown) (unknown) Referrals: (units (unk nown) date) unknown) (unknown) (no (unknown) (unknown) Related Data (units (u nknown) date) unknown) (unknown) (no (unknown) (unknown) Respiratory Rate 16 (unit s (unknown) date) 11/15/22 21:09 unknown) (unknown) (no (unknown) (unknown) Respiratory Rate 16 (unit s (unknown) date) unknown) (unknown) (no (unknown) (unknown) Rx Instructions: (units (unknown) date) unknown) (unknown) (no (unknown) (unknown) SKIN: Warm, dry, no (unit s (unknown) date) laceration, no unknown) petechiae, no rashes or lesions. (unknown) (no (unknown) (unknown) See Rx Instructions (unit s (unknown) date) .ROUTE .COMPLEX Qty: unknown) 180 0RF (unknown) (no (unknown) (unknown) See Rx Instructions (unit s (unknown) date) .ROUTE .COMPLEX Qty: unknown) 2 0RF (unknown) (no (unknown) (unknown) See Rx Instructions (unit s (unknown) date) PO BEDTIME Qty: 45 unknown) 2RF (unknown) (no (unknown) (unknown) Signed By: (units (unk nown) date) unknown) (unknown) (no (unknown) (unknown) [facility] (units ( unknown) date) Hospital recently unknown) for an EGD which she was found to have erosive (unknown) (no (unknown) (unknown) Smoking Status: (units (unknown) date) Current every day unknown) smoker (unknown) (no (unknown) (unknown) Social History (units (unknown) date) (Reviewed 05/05/22 @ unknown) 21:08 by Vargas Hill MD) (unknown) (no (unknown) (unknown) Sodium (137-145) (units (unknown) date) mmol/L unknown) (unknown) (no (unknown) (unknown) Sodium 136 L (units (u nknown) date) (137-145) mmol/L unknown) (unknown) (no (unknown) (unknown) Sodium Chloride (units (unknown) date) (Normal Saline 0.9%) unknown) 1,000 mls @ 1,000 mls/hr IV BOLUS ONE (unknown) (no (unknown) (unknown) Stated Complaint: (units (unknown) date) abdominal pain, unknown) vomiting blood (unknown) (no (unknown) (unknown) Status post (units [...] unknown) (unknown) (no (unknown) (unknown) Status post removal (unit s (unknown) date) of cervix unknown) (unknown) (no (unknown) (unknown) Status post (units (un known) date) tonsillectomy and unknown) adenoidectomy (unknown) (no (unknown) (unknown) Stop: 11/15/22 (units (unknown) date) 21:42 unknown) (unknown) (no (unknown) (unknown) Stop: 11/15/22 (units (unknown) date) 22:03 unknown) (unknown) (no (unknown) (unknown) Stop: 11/15/22 (units (unknown) date) 22:12 unknown) (unknown) (no (unknown) (unknown) Stop: 11/15/22 (units (unknown) date) 22:51 unknown) (unknown) (no (unknown) (unknown) Substance Use Type: (unit s (unknown) date) does not use unknown) (unknown) (no (unknown) (unknown) Surgical History (units (unknown) date) (Reviewed 05/05/22 @ unknown) 21:08 by Vargas Hill MD) (unknown) (no (unknown) (unknown) TAKE 2 TABLETS BY (units (unknown) date) MOUTH AT BEDTIME unknown) NEEDED FOR INSOMNIA (unknown) (no (unknown) (unknown) Take 1 tab p.o. at (units (unknown) date) HS. May take 1/2 tab unknown) p.o. during the day for anxiety (unknown) (no (unknown) (unknown) Temperature 97.6 F (units (unknown) date) 11/15/22 21:09 unknown) (unknown) (no (unknown) (unknown) Temperature 97.6 F (units (unknown) date) unknown) (unknown) (no (unknown) (unknown) Time Seen by (units (u nknown) date) Provider: 11/15/22 unknown) 21:09 (unknown) (no (unknown) (unknown) Total Bilirubin (units (unknown) date) (0.2-1.3) mg/dL unknown) (unknown) (no (unknown) (unknown) Total Bilirubin 0.5 (unit s (unknown) date) (0.2-1.3) mg/dL unknown) (unknown) (no (unknown) (unknown) Total Protein (units ( unknown) date) (6.3-8.2) g/dL unknown) (unknown) (no (unknown) (unknown) Total Protein 6.4 (units (unknown) date) (6.3-8.2) g/dL unknown) (unknown) (no (unknown) (unknown) UA Complete (units (un known) date) [Urinalysis and unknown) Microscopic] Stat (unknown) (no (unknown) (unknown) Ur Culture (units (unk nown) date) Indicated? Specimen unknown) cultured (unknown) (no (unknown) (unknown) Ur Culture (units (unk nown) date) Indicated? unknown) (unknown) (no (unknown) (unknown) Ur Leukocyte (units (u nknown) date) Esterase (NEGATIVE) unknown) (unknown) (no (unknown) (unknown) Ur Leukocyte (units (u nknown) date) Esterase 1+ H unknown) (NEGATIVE) (unknown) (no (unknown) (unknown) Ur Specific [place] (unit s (unknown) date) (1.000-1.035) unknown) (unknown) (no (unknown) (unknown) Ur Specific [place] (unit s (unknown) date) 1.025 (1.000-1.035) unknown) (unknown) (no (unknown) (unknown) Ur Squamous Epith (units (unknown) date) Cells (0-5/HPF) unknown) (unknown) (no (unknown) (unknown) Ur Squamous Epith (units (unknown) date) Cells 1-5 /hpf D unknown) (0-5/HPF) (unknown) (no (unknown) (unknown) Urine Appearance (units (unknown) date) Cloudy unknown) (unknown) (no (unknown) (unknown) Urine Appearance (units (unknown) date) unknown) (unknown) (no (unknown) (unknown) Urine Bacteria (units (unknown) date) (None) unknown) (unknown) (no (unknown) (unknown) Urine Bacteria (units (unknown) date) Occasional (0-1) unknown) (None) (unknown) (no (unknown) (unknown) Urine Bilirubin (units (unknown) date) (NEGATIVE) unknown) (unknown) (no (unknown) (unknown) Urine Bilirubin (units (unknown) date) Negative (NEGATIVE) unknown) (unknown) (no (unknown) (unknown) Urine Color Red (units (unknown) date) unknown) (unknown) (no (unknown) (unknown) Urine Color (units (un known) date) unknown) (unknown) (no (unknown) (unknown) Urine Culture Stat (units (unknown) date) unknown) (unknown) (no (unknown) (unknown) Urine Dip (units (unkn own) date) unknown) (unknown) (no (unknown) (unknown) Urine Glucose (UA) (units (unknown) date) (Negative) g/dL unknown) (unknown) (no (unknown) (unknown) Urine Glucose (UA) (units (unknown) date) Negative (Negative) unknown) g/dL (unknown) (no (unknown) (unknown) Urine Ketones (units ( unknown) date) (NEGATIVE) unknown) (unknown) (no (unknown) (unknown) Urine Ketones (units ( unknown) date) Negative (NEGATIVE) unknown) (unknown) (no (unknown) (unknown) Urine Nitrate (units ( unknown) date) (Negative) unknown) (unknown) (no (unknown) (unknown) Urine Nitrate (units ( unknown) date) Negative (Negative) unknown) (unknown) (no (unknown) (unknown) Urine Occult Blood (units (unknown) date) (Negative) unknown) (unknown) (no (unknown) (unknown) Urine Occult Blood (units (unknown) date) 3+ H (Negative) unknown) (unknown) (no (unknown) (unknown) Urine Protein (units ( unknown) date) (Negative) unknown) (unknown) (no (unknown) (unknown) Urine Protein 1+ H (units (unknown) date) (Negative) unknown) (unknown) (no (unknown) (unknown) Urine RBC >100/hpf (units (unknown) date) H (0-5/HPF) unknown) (unknown) (no (unknown) (unknown) Urine RBC (0-5/HPF) (unit s (unknown) date) unknown) (unknown) (no (unknown) (unknown) Urine Specific (units (unknown) date) [place] 1.020 unknown) (unknown) (no (unknown) (unknown) Urine Urobilinogen (units (unknown) date) (0.2) E.U./dL unknown) (unknown) (no (unknown) (unknown) Urine Urobilinogen (units (unknown) date) 1.0 (0.2) E.U./dL unknown) (unknown) (no (unknown) (unknown) Urine WBC (0-5/HPF) (unit s (unknown) date) unknown) (unknown) (no (unknown) (unknown) Urine WBC 1-5/hpf (units (unknown) date) (0-5/HPF) unknown) (unknown) (no (unknown) (unknown) Urine pH (4.5-8.0) (units (unknown) date) unknown) (unknown) (no (unknown) (unknown) Urine pH 6.5 (units (u nknown) date) (4.5-8.0) unknown) (unknown) (no (unknown) (unknown) Vital Signs - 8 hr (units (unknown) date) unknown) (unknown) (no (unknown) (unknown) Vital Signs (units (un known) date) unknown) (unknown) (no (unknown) (unknown) Vital signs: (units (u nknown) date) unknown) (unknown) (no (unknown) (unknown) WBC (4.5-11.0) (units (unknown) date) X103/uL unknown) (unknown) (no (unknown) (unknown) WBC 6.4 (4.5-11.0) (units (unknown) date) X103/uL unknown) (unknown) (no (unknown) (unknown) Christi Johnson (units (unknown) date) L, DNP, [employer] unknown) [Primary Care Provider] (unknown) (no (unknown) (unknown) [EARS:] [Tympanic (units (unknown) date) membranes unknown) visualized, no erythema or bulging, no hemotympanum] (unknown) (no (unknown) (unknown) [Embedded Image Not (unit s (unknown) date) Available] unknown) (unknown) (no (unknown) (unknown) [From BACTRIM] (units (unknown) date) unknown) (unknown) (no (unknown) (unknown) [IODINATED CONTRAST (unit s (unknown) date) MEDIA unknown) (unknown) (no (unknown) (unknown) [METOCLOPRAMIDE] (units (unknown) date) unknown) (unknown) (no (unknown) (unknown) [PHARYNX:] [No (units (unknown) date) erythema, no unknown) tonsillar exudate, no cervical lymphadenopathy] (unknown) (no (unknown) (unknown) [RECTAL:] (units (unkn own) date) [Hemoccult-positive, unknown) no hemorrhoids, nontender] (unknown) (no (unknown) (unknown) [SHELLFISH DERIVED] (unit s (unknown) date) unknown) (unknown) (no (unknown) (unknown) actually was seen (units (unknown) date) evaluated by her unknown) primary care provider yesterday she was (unknown) (no (unknown) (unknown) adhesive [ADHESIVE] (unit s (unknown) date) Allergy Mild unknown) Verified 04/22/22 14:44 (unknown) (no (unknown) (unknown) alcohol intake (units (unknown) date) frequency: unknown) holidays/special occasions only (unknown) (no (unknown) (unknown) amoxicillin (units (un known) date) [AMOXICILLIN] unknown) Allergy Mild Verified 04/22/22 14:44 (unknown) (no (unknown) (unknown) apply to single (units (unknown) date) elbow, wrist or unknown) hand; for hand includes palm/fingers/back of (unknown) (no (unknown) (unknown) bilaterally, no (units (unknown) date) visual changes, no unknown) facial droop] (unknown) (no (unknown) (unknown) cephalexin (units (unk nown) date) [CEPHALEXIN] Allergy unknown) Unknown Verified 04/22/22 14:44 (unknown) (no (unknown) (unknown) chills. No flank (units (unknown) date) pain. He is had unknown) multiple CTs previously. She was admitted at (unknown) (no (unknown) (unknown) ciprofloxacin (units ( unknown) date) [CIPROFLOXACIN] unknown) Allergy Unknown Verified 04/22/22 14:44 (unknown) (no (unknown) (unknown) clindamycin (units (un known) date) [CLINDAMYCIN] unknown) Allergy Unknown Verified 04/22/22 14:44 (unknown) (no (unknown) (unknown) diazepam 10 mg (units (unknown) date) tablet 10 mg PO QID unknown) #120 tabs 10/12/21 (unknown) (no (unknown) (unknown) diazepam 10 mg (units (unknown) date) tablet unknown) (unknown) (no (unknown) (unknown) diazepam 5 mg (units ( unknown) date) tablet (Valium) 5 mg unknown) PO TID PRN muscle spasm #10 10/19/21 (unknown) (no (unknown) (unknown) diazepam [Valium] 5 (unit s (unknown) date) mg tablet unknown) (unknown) (no (unknown) (unknown) diclofenac sodium 1 (unit s (unknown) date) % gel unknown) (unknown) (no (unknown) (unknown) diclofenac sodium 1 (unit s (unknown) date) % topical gel 2 g unknown) topical QID #100 grams 05/05/22 (unknown) (no (unknown) (unknown) doxycycline (units (un known) date) [DOXYCYCLINE] unknown) Allergy Mild Verified 04/22/22 14:44 (unknown) (no (unknown) (unknown) epinephrine 0.3 (units (unknown) date) mg/0.3 mL See Rx unknown) Instructions .Route 02/27/22 (unknown) (no (unknown) (unknown) epinephrine 0.3 (units (unknown) date) mg/0.3 mL unknown) auto-injector (unknown) (no (unknown) (unknown) equal bilaterally, (units (unknown) date) no dysarthria or unknown) aphasia, sensation in tact to soft touch (unknown) (no (unknown) (unknown) gastritis. She can (units (unknown) date) not have NSAIDs. She unknown) is taking oxycodone. (unknown) (no (unknown) (unknown) guarding or (units (un known) date) rebound. unknown) (unknown) (no (unknown) (unknown) hand (units (unkno wn) date) unknown) (unknown) (no (unknown) (unknown) having galactorrhea (unit s (unknown) date) which started 2 days unknown) ago. She says this is persisting. She (unknown) (no (unknown) (unknown) household members: (units (unknown) date) spouse and children unknown) (unknown) (no (unknown) (unknown) hydrocodone Allergy (unit s (unknown) date) Mild rash Verified unknown) 04/22/22 14:44 (unknown) (no (unknown) (unknown) injection, (units (unk nown) date) auto-injector unknown) .COMPLEX #2 ea (unknown) (no (unknown) (unknown) intact (units (unkno wn) date) unknown) (unknown) (no (unknown) (unknown) iodine [IODINE] (units (unknown) date) Allergy Mild unknown) Verified 04/22/22 14:44 (unknown) (no (unknown) (unknown) is metoclopramide (units (unknown) date) Phenergan and unknown) oxycodone all which increase and (unknown) (no (unknown) (unknown) lamotrigine 200 mg (units (unknown) date) tablet 200 mg PO unknown) DAILY #30 tabs 01/18/22 (unknown) (no (unknown) (unknown) lamotrigine 200 mg (units (unknown) date) tablet unknown) (unknown) (no (unknown) (unknown) latex [LATEX] (units ( unknown) date) Allergy Unknown unknown) Verified 04/22/22 14:44 (unknown) (no (unknown) (unknown) lidocaine AdvReac (units (unknown) date) Palpitation Verified unknown) 04/22/22 14:44 (unknown) (no (unknown) (unknown) lives (units (unkno wn) date) independently: Yes unknown) (unknown) (no (unknown) (unknown) marital status: (units (unknown) date) unknown) (unknown) (no (unknown) (unknown) membranes (units (unkn own) date) unknown) (unknown) (no (unknown) (unknown) metformin 500 mg (units (unknown) date) tablet 500 mg PO BID unknown) #60 tabs 02/21/22 (unknown) (no (unknown) (unknown) metformin 500 mg (units (unknown) date) tablet unknown) (unknown) (no (unknown) (unknown) metoclopramide (units (unknown) date) Allergy Mild unknown) Verified 04/22/22 14:44 (unknown) (no (unknown) (unknown) mg tablet (units (unkn own) date) (Percocet) unknown) (unknown) (no (unknown) (unknown) multiple EGDs, e (units (unknown) date) history of vaginal unknown) bleeding despite hysterectomy, presents (unknown) (no (unknown) (unknown) neuroleptic (units (un known) date) seizures, PTSD unknown) depression, erosive gastritis causing hematemesis (unknown) (no (unknown) (unknown) occupational (units (u nknown) date) status: employed unknown) (unknown) (no (unknown) (unknown) oxycodone 10 mg (units (unknown) date) tablet 5 mg PO Q6H unknown) PRN pain #14 tabs 05/05/22 (unknown) (no (unknown) (unknown) oxycodone 10 mg (units (unknown) date) tablet unknown) (unknown) (no (unknown) (unknown) oxycodone-acetamino (unit s (unknown) date) phen 5 mg-325 1 tab unknown) PO Q8H PRN pain #6 tabs 04/22/22 (unknown) (no (unknown) (unknown) oxycodone-acetamino (unit s (unknown) date) phen [Percocet] unknown) 5-325 mg tablet (unknown) (no (unknown) (unknown) prolactin levels. (units (unknown) date) She apparently does unknown) have vaginal bleeding there is a known (unknown) (no (unknown) (unknown) quetiapine 100 mg (units (unknown) date) tablet 100 mg PO unknown) BEDTIME 02/27/22 02/27/22 (unknown) (no (unknown) (unknown) quetiapine 100 mg (units (unknown) date) tablet unknown) (unknown) (no (unknown) (unknown) quetiapine 25 mg (units (unknown) date) tablet See Rx unknown) Instructions PO BEDTIME #45 01/18/22 (unknown) (no (unknown) (unknown) quetiapine 25 mg (units (unknown) date) tablet unknown) (unknown) (no (unknown) (unknown) received per (units (u nknown) date) another provider. unknown) (unknown) (no (unknown) (unknown) s (units (unkno wn) date) unknown) (unknown) (no (unknown) (unknown) sertraline 100 mg (units (unknown) date) tablet 200 mg PO unknown) DAILY #60 tabs 01/18/22 (unknown) (no (unknown) (unknown) sertraline 100 mg (units (unknown) date) tablet unknown) (unknown) (no (unknown) (unknown) shellfish derived (units (unknown) date) Allergy Severe unknown) ANAPHYLAXIS Verified 04/22/22 14:44 (unknown) (no (unknown) (unknown) small opening in the (unit s (unknown) date) cuff of her unknown) hysterectomy as identified her surgeon when she (unknown) (no (unknown) (unknown) started lactating (units (unknown) date) she started vaginal unknown) bleeding again. She denies fever or (unknown) (no (unknown) (unknown) sulfamethoxazole (units (unknown) date) Allergy Mild RASH unknown) Verified 04/22/22 14:44 (unknown) (no (unknown) (unknown) tabs (units (unkno wn) date) unknown) (unknown) (no (unknown) (unknown) through XII grossly (unit s (unknown) date) intact. [Good unknown) [id number], good [id number], strength (unknown) (no (unknown) (unknown) tobacco type: (units ( unknown) date) vaping unknown) (unknown) (no (unknown) (unknown) today with left (units (unknown) date) lower quadrant pain unknown) nausea vomiting in vaginal bleeding. She (unknown) (no (unknown) (unknown) tramadol 50 mg (units (unknown) date) tablet 100 mg PO BID unknown) PRN severe pain 03/22/22 (unknown) (no (unknown) (unknown) tramadol 50 mg (units (unknown) date) tablet unknown) (unknown) (no (unknown) (unknown) trazodone 100 mg (units (unknown) date) tablet See Rx unknown) Instructions .Route 11/20/21 (unknown) (no (unknown) (unknown) trazodone 100 mg (units (unknown) date) tablet unknown) (unknown) (no (unknown) (unknown) trimethoprim [From (units (unknown) date) BACTRIM] Allergy unknown) Mild RASH Verified 04/22/22 14:44 Result panel 348 (unknown) (no (unknown) (unknown) (no value) (units (unk nown) date) unknown) (unknown) (no (unknown) (unknown) (scale score 7-10) (units (unknown) date) #60 tabs unknown) (unknown) (no (unknown) (unknown) .COMPLEX #180 tabs (units (unknown) date) unknown) (unknown) (no (unknown) (unknown) 11/15/22 11/15/22 (units (unknown) date) 11/15/22 Range/Units unknown) (unknown) (no (unknown) (unknown) 11/15/22 11/15/22 (units (unknown) date) Range/Units unknown) (unknown) (no (unknown) (unknown) 11/15/22 21:20 (units (unknown) date) unknown) (unknown) (no (unknown) (unknown) 11/15/22 21:32 (units (unknown) date) unknown) (unknown) (no (unknown) (unknown) 11/15/22 22:00 (units (unknown) date) unknown) (unknown) (no (unknown) (unknown) 11/15/22 (units (unkno wn) date) unknown) (unknown) (no (unknown) (unknown) 1 tab PO Q8H PRN (units (unknown) date) (Reason: pain) Qty: unknown) 6 0RF (unknown) (no (unknown) (unknown) 10 mg PO QID Qty: (units (unknown) date) 120 2RF unknown) (unknown) (no (unknown) (unknown) 100 mg PO BEDTIME (units (unknown) date) unknown) (unknown) (no (unknown) (unknown) 100 mg PO BID PRN (units (unknown) date) (Reason: severe pain unknown) (scale score 7-10)) Qty: 60 0RF (unknown) (no (unknown) (unknown) 2 g topical QID (units (unknown) date) Qty: 100 3RF unknown) (unknown) (no (unknown) (unknown) 200 mg PO DAILY (units (unknown) date) Qty: 30 2RF unknown) (unknown) (no (unknown) (unknown) 200 mg PO DAILY (units (unknown) date) Qty: 60 2RF unknown) (unknown) (no (unknown) (unknown) 21:09 11/15/22 (units (unknown) date) unknown) (unknown) (no (unknown) (unknown) 21:20 21:32 21:32 (units (unknown) date) unknown) (unknown) (no (unknown) (unknown) 21:32 21:32 (units (un known) date) unknown) (unknown) (no (unknown) (unknown) 22:00 (units (unkno wn) date) unknown) (unknown) (no (unknown) (unknown) 5 mg PO Q6H PRN (units (unknown) date) (Reason: pain) Qty: unknown) 14 0RF (unknown) (no (unknown) (unknown) 5 mg PO TID PRN (units (unknown) date) (Reason: muscle unknown) spasm) Qty: 10 0RF (unknown) (no (unknown) (unknown) 500 mg PO BID Qty: (units (unknown) date) 60 0RF unknown) (unknown) (no (unknown) (unknown) : [id number] (units (u nknown) date) unknown) (unknown) (no (unknown) (unknown) ABDOMEN: Soft, mild (unit s (unknown) date) tenderness left unknown) quadrant guarding rebound (unknown) (no (unknown) (unknown) ALT (<35) IU/L (units (unknown) date) unknown) (unknown) (no (unknown) (unknown) ALT 16 (<35) IU/L (units (unknown) date) unknown) (unknown) (no (unknown) (unknown) AST (14-36) IU/L (units (unknown) date) unknown) (unknown) (no (unknown) (unknown) AST 16 (14-36) IU/L (unit s (unknown) date) unknown) (unknown) (no (unknown) (unknown) Age/Sex: 27 / F (units (unknown) date) unknown) (unknown) (no (unknown) (unknown) Albumin (3.5-5.0) (units (unknown) date) g/dL unknown) (unknown) (no (unknown) (unknown) Albumin 3.9 (units (un known) date) (3.5-5.0) g/dL unknown) (unknown) (no (unknown) (unknown) Albumin/Globulin (units (unknown) date) Ratio (1.0-2.8) unknown) (unknown) (no (unknown) (unknown) Albumin/Globulin (units (unknown) date) Ratio 1.6 (1.0-2.8) unknown) (unknown) (no (unknown) (unknown) Alkaline (units (unkno wn) date) Phosphatase (38-126) unknown) U/L (unknown) (no (unknown) (unknown) Alkaline (units (unkno wn) date) Phosphatase 43 unknown) (38-126) U/L (unknown) (no (unknown) (unknown) Allergies (units (unkn own) date) unknown) (unknown) (no (unknown) (unknown) Allergy/AdvReac (units (unknown) date) Type Severity unknown) Reaction Status Date / Time (unknown) (no (unknown) (unknown) 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 unknown) (unknown) (no (unknown) (unknown) BUN (7-17) mg/dL (units (unknown) date) unknown) (unknown) (no (unknown) (unknown) BUN 15 (7-17) mg/dL (unit s (unknown) date) unknown) (unknown) (no (unknown) (unknown) BUN/Creatinine (units (unknown) date) Ratio (6-22) unknown) (unknown) (no (unknown) (unknown) BUN/Creatinine (units (unknown) date) Ratio 17.2 (6-22) unknown) (unknown) (no (unknown) (unknown) Baso # (Auto) (units ( unknown) date) (0-100) /uL unknown) (unknown) (no (unknown) (unknown) Baso # (Auto) 100 (units (unknown) date) (0-100) /uL unknown) (unknown) (no (unknown) (unknown) Baso % (Auto) (0-2) (unit s (unknown) date) % unknown) (unknown) (no (unknown) (unknown) Baso % (Auto) 1.9 (units (unknown) date) (0-2) % unknown) (unknown) (no (unknown) (unknown) Bedside Urine (units ( unknown) date) Bilirubin - Negative unknown) (unknown) (no (unknown) (unknown) Bedside Urine (units ( unknown) date) Glucose Negative unknown) (unknown) (no (unknown) (unknown) Bedside Urine (units ( unknown) date) Ketone - Negative unknown) (unknown) (no (unknown) (unknown) Bedside Urine (units ( unknown) date) Leukocytes + 70 unknown) (unknown) (no (unknown) (unknown) Bedside Urine (units ( unknown) date) Nitrite - Negative unknown) (unknown) (no (unknown) (unknown) Bedside Urine (units ( unknown) date) Occult Blood - unknown) Negative (unknown) (no (unknown) (unknown) Bedside Urine (units ( unknown) date) Protein + 30 unknown) (unknown) (no (unknown) (unknown) Bedside Urine (units ( unknown) date) Urobilinogen +/- 1mg unknown) (unknown) (no (unknown) (unknown) Bedside Urine pH (units (unknown) date) 6.0 unknown) (unknown) (no (unknown) (unknown) Blood Pressure (units (unknown) date) 140/63 11/15/22 unknown) 21:09 (unknown) (no (unknown) (unknown) Blood Pressure (units (unknown) date) 140/63 140/63 unknown) (unknown) (no (unknown) (unknown) Breast cancer (units ( unknown) date) unknown) (unknown) (no (unknown) (unknown) CAD (coronary (units ( unknown) date) artery disease) unknown) (unknown) (no (unknown) (unknown) CARDIOVASCULAR: (units (unknown) date) Regular rate and unknown) rhythm without murmurs, rubs or gallops. (unknown) (no (unknown) (unknown) CBC Auto Diff (units ( unknown) date) [Complete Blood unknown) Count AUTO DIFF] Stat (unknown) (no (unknown) (unknown) CMP [Comprehensive (units (unknown) date) Metabolic Panel] unknown) Stat (unknown) (no (unknown) (unknown) CT abdomen pelvis (units (unknown) date) wo con Stat unknown) (unknown) (no (unknown) (unknown) Calcium (8.4-10.2) (units (unknown) date) mg/dL unknown) (unknown) (no (unknown) (unknown) Calcium 8.3 L (units ( unknown) date) (8.4-10.2) mg/dL unknown) (unknown) (no (unknown) (unknown) Carbon Dioxide (units (unknown) date) (22-32) mmol/L unknown) (unknown) (no (unknown) (unknown) Carbon Dioxide 27 (units (unknown) date) (22-32) mmol/L unknown) (unknown) (no (unknown) (unknown) Chief Complaint: (units (unknown) date) Abdominal Pain unknown) (unknown) (no (unknown) (unknown) Chloride (98-107) (units (unknown) date) mmol/L unknown) (unknown) (no (unknown) (unknown) Chloride 103 (units (u nknown) date) (98-107) mmol/L unknown) (unknown) (no (unknown) (unknown) Contract void and (units (unknown) date) provider will offer unknown) no further tramadol refills if tramadol (unknown) (no (unknown) (unknown) Course (units (unkno wn) date) unknown) (unknown) (no (unknown) (unknown) Creatinine (units (unk nown) date) (0.52-1.04) mg/dL unknown) (unknown) (no (unknown) (unknown) Creatinine 0.87 (units (unknown) date) (0.52-1.04) mg/dL unknown) (unknown) (no (unknown) (unknown) : 1995 (units (unknown) date) Acct:[id number] unknown) (unknown) (no (unknown) (unknown) Date of Service: (units (unknown) date) 11/15/22 unknown) (unknown) (no (unknown) (unknown) Departure (units (unkn own) date) unknown) (unknown) (no (unknown) (unknown) Diphenhydramine HCl (unit s (unknown) date) (Diphenhydramine 50 unknown) Mg/Ml Vial) 25 mg IV NOW ONE (unknown) (no (unknown) (unknown) Discharge Plan (units (unknown) date) unknown) (unknown) (no (unknown) (unknown) Discontinued (units (u nknown) date) Medications unknown) (unknown) (no (unknown) (unknown) Documented By: SPF (units (unknown) date) unknown) (unknown) (no (unknown) (unknown) Dose Instruction: (units (unknown) date) unknown) (unknown) (no (unknown) (unknown) ED Orders (units (unkn own) date) unknown) (unknown) (no (unknown) (unknown) ER Physician: (units ( unknown) date) Stephie Escalante D.O. unknown) (unknown) (no (unknown) (unknown) EXTREMITIES: Normal (unit s (unknown) date) range of motion, no unknown) clubbing or edema. Neurovascularly (unknown) (no (unknown) (unknown) Emergency Report (units (unknown) date) unknown) (unknown) (no (unknown) (unknown) Endometriosis (units ( unknown) date) unknown) (unknown) (no (unknown) (unknown) Eos # (Auto) (units (u nknown) date) (0-450) /uL unknown) (unknown) (no (unknown) (unknown) Eos # (Auto) 100 (units (unknown) date) (0-450) /uL unknown) (unknown) (no (unknown) (unknown) Eos % (Auto) (2-4) (units (unknown) date) % unknown) (unknown) (no (unknown) (unknown) Eos % (Auto) 2.0 (units (unknown) date) (2-4) % unknown) (unknown) (no (unknown) (unknown) Esterase (units (unkno wn) date) unknown) (unknown) (no (unknown) (unknown) Estimated GFR > 60 (units (unknown) date) (>60) mL/min unknown) (unknown) (no (unknown) (unknown) Estimated GFR (>60) (unit s (unknown) date) mL/min unknown) (unknown) (no (unknown) (unknown) Exam (units (unkno wn) date) unknown) (unknown) (no (unknown) (unknown) Family History (units (unknown) date) (Reviewed 05/05/22 @ unknown) 21:08 by Vargas Hill MD) (unknown) (no (unknown) (unknown) GENERAL: Alert (units (unknown) date) pleasant unknown) well-appearing 27-year-old female and in no acute (unknown) (no (unknown) (unknown) : No CVA (units (unk nown) date) tenderness unknown) (unknown) (no (unknown) (unknown) General (units (unkno wn) date) unknown) (unknown) (no (unknown) (unknown) Globulin (1.7-4.1) (units (unknown) date) g/dL unknown) (unknown) (no (unknown) (unknown) Globulin 2.5 (units (u nknown) date) (1.7-4.1) g/dL unknown) (unknown) (no (unknown) (unknown) Glucose (70-100) (units (unknown) date) mg/dL unknown) (unknown) (no (unknown) (unknown) Glucose 96 (70-100) (unit s (unknown) date) mg/dL unknown) (unknown) (no (unknown) (unknown) Grandmother (units (un known) date) Ovarian unknown) cancer (unknown) (no (unknown) (unknown) H/O unilateral (units (unknown) date) oophorectomy unknown) (-12/2020) (unknown) (no (unknown) (unknown) H/O: hysterectomy (units (unknown) date) unknown) (unknown) (no (unknown) (unknown) HEENT: Head (units (un known) date) atraumatic,EOMI, unknown) pupils reactive, face symmetric, moist mucous (unknown) (no (unknown) (unknown) HPI - Abdominal (units (unknown) date) Pain unknown) (unknown) (no (unknown) (unknown) HPI narrative: (units (unknown) date) unknown) (unknown) (no (unknown) (unknown) Hct (36-46) % (units ( unknown) date) unknown) (unknown) (no (unknown) (unknown) Hct 35.8 L (36-46) (units (unknown) date) % unknown) (unknown) (no (unknown) (unknown) Hematuria (units (unkn own) date) unknown) (unknown) (no (unknown) (unknown) Hgb (12.0-16.0) (units (unknown) date) g/dL unknown) (unknown) (no (unknown) (unknown) Hgb 12.6 (units (unkno wn) date) (12.0-16.0) g/dL unknown) (unknown) (no (unknown) (unknown) History of Present (units (unknown) date) Illness unknown) (unknown) (no (unknown) (unknown) History of ureter (units (unknown) date) stent unknown) (unknown) (no (unknown) (unknown) Hold Instructions: (units (unknown) date) NEEDS TO SEE unknown) NEUROLOGY (unknown) (no (unknown) (unknown) Hold Instructions: (units (unknown) date) SEEN BY PSYCHIATRY unknown) (unknown) (no (unknown) (unknown) Home Medications (units (unknown) date) unknown) (unknown) (no (unknown) (unknown) Hydromorphone HCl (units (unknown) date) (Hydromorphone 1 Mg unknown) Inj) 1 mg IV NOW ONE (unknown) (no (unknown) (unknown) Hyperlipidemia (units (unknown) date) unknown) (unknown) (no (unknown) (unknown) Hypertension (units (u nknown) date) unknown) (unknown) (no (unknown) (unknown) INJECT (units (unkno wn) date) INTRAMUSCULARLY unknown) EVERY 20 MINUTES NEEDED FOR ANAPHYLAXIS UNTIL (unknown) (no (unknown) (unknown) IV DYE] (units (unkno wn) date) unknown) (unknown) (no (unknown) (unknown) Initial Vital Signs (unit s (unknown) date) unknown) (unknown) (no (unknown) (unknown) Initial Vital (units ( unknown) date) Signs: unknown) (unknown) (no (unknown) (unknown) Iodinated Contrast (units (unknown) date) Media Allergy unknown) Unknown Verified 04/22/22 14:44 (unknown) (no (unknown) (unknown) [facility] (units (unknown) date) [address] unknown) [place] [address] (unknown) (no (unknown) (unknown) Lab Data (units (unkno wn) date) unknown) (unknown) (no (unknown) (unknown) Lab Results (units (un known) date) unknown) (unknown) (no (unknown) (unknown) Labs: (units (unkno wn) date) unknown) (unknown) (no (unknown) (unknown) Lactate (0.7-2.1) (units (unknown) date) mmol/L unknown) (unknown) (no (unknown) (unknown) Lactate (Lactic (units (unknown) date) Acid) Stat unknown) (unknown) (no (unknown) (unknown) Lactate 1.2 (units (un known) date) (0.7-2.1) mmol/L unknown) (unknown) (no (unknown) (unknown) Last Admin: (units (un known) date) 11/15/22 22:00 Dose: unknown) 10 mg (unknown) (no (unknown) (unknown) Last Admin: (units (un known) date) 11/15/22 22:01 Dose: unknown) 40 mg (unknown) (no (unknown) (unknown) Last Admin: (units (un known) date) 11/15/22 22:21 Dose: unknown) Not Given (unknown) (no (unknown) (unknown) Last Admin: (units (un known) date) 11/15/22 22:24 Dose: unknown) 1,000 mls/hr (unknown) (no (unknown) (unknown) Limit as possible. (units (unknown) date) Prescribed per 03/21 unknown) signed pain management contract. (unknown) (no (unknown) (unknown) Lipase (23-300) U/L (unit s (unknown) date) unknown) (unknown) (no (unknown) (unknown) Lipase 86 (23-300) (units (unknown) date) U/L unknown) (unknown) (no (unknown) (unknown) Lipase Stat (units (un known) date) unknown) (unknown) (no (unknown) (unknown) Lymph # (Auto) (units (unknown) date) (8106-5532) /uL unknown) (unknown) (no (unknown) (unknown) Lymph # (Auto) 2200 (unit s (unknown) date) (7812-6555) /uL unknown) (unknown) (no (unknown) (unknown) Lymph % (Auto) (units (unknown) date) (25-40) % unknown) (unknown) (no (unknown) (unknown) Lymph % (Auto) 34.4 (unit s (unknown) date) (25-40) % unknown) (unknown) (no (unknown) (unknown) MCH (26-34) PG (units (unknown) date) unknown) (unknown) (no (unknown) (unknown) MCH 31.2 (26-34) PG (unit s (unknown) date) unknown) (unknown) (no (unknown) (unknown) MCHC (30-36) % (units (unknown) date) unknown) (unknown) (no (unknown) (unknown) MCHC 35.3 (30-36) % (unit s (unknown) date) unknown) (unknown) (no (unknown) (unknown) MCV (80-100) fL (units (unknown) date) unknown) (unknown) (no (unknown) (unknown) MCV 88.6 (80-100) (units (unknown) date) fL unknown) (unknown) (no (unknown) (unknown) MDM - Abdominal (units (unknown) date) Pain unknown) (unknown) (no (unknown) (unknown) Major depressive (units (unknown) date) disorder unknown) (unknown) (no (unknown) (unknown) Medical History (units (unknown) date) (Reviewed 05/05/22 @ unknown) 21:08 by Vargas Hill MD) (unknown) (no (unknown) (unknown) Medication (units (unk nown) date) Instructions unknown) Recorded Confirmed (unknown) (no (unknown) (unknown) Medication (units (unk nown) date) Instructions unknown) Recorded (unknown) (no (unknown) (unknown) Methylprednisolone (units (unknown) date) (Methylprednisolone unknown) 125 Mg/2 Ml Vial) 125 mg IV NOW ONE (unknown) (no (unknown) (unknown) [place] # (Auto) (units ( unknown) date) (0-900) /uL unknown) (unknown) (no (unknown) (unknown) [place] # (Auto) 400 (units (unknown) date) (0-900) /uL unknown) (unknown) (no (unknown) (unknown) [place] % (Auto) (units ( unknown) date) (3-14) % unknown) (unknown) (no (unknown) (unknown) [place] % (Auto) 6.9 (units (unknown) date) (3-14) % unknown) (unknown) (no (unknown) (unknown) Morbid obesity (units (unknown) date) unknown) (unknown) (no (unknown) (unknown) 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 (unknown) (no (unknown) (unknown) Nephrolithiasis (units (unknown) date) (-2018) unknown) (unknown) (no (unknown) (unknown) Neut # (Auto) (units ( unknown) date) (5186-6233) /uL unknown) (unknown) (no (unknown) (unknown) Neut # (Auto) 3500 (units (unknown) date) (6962-8809) /uL unknown) (unknown) (no (unknown) (unknown) Neut % (Auto) (units ( unknown) date) (50-75) % unknown) (unknown) (no (unknown) (unknown) Neut % (Auto) 54.8 (units (unknown) date) (50-75) % unknown) (unknown) (no (unknown) (unknown) No Action (units (unkn own) date) unknown) (unknown) (no (unknown) (unknown) Ordered: (units (unkno wn) date) unknown) (unknown) (no (unknown) (unknown) Orders (units (unkno wn) date) unknown) (unknown) (no (unknown) (unknown) Ovarian cyst (units (u nknown) date) unknown) (unknown) (no (unknown) (unknown) Oxygen Delivery (units (unknown) date) Method Room Air unknown) 11/15/22 21:09 (unknown) (no (unknown) (unknown) Oxygen Delivery (units (unknown) date) Method Room Air unknown) (unknown) (no (unknown) (unknown) PCOS (polycystic (units (unknown) date) ovarian syndrome) unknown) (unknown) (no (unknown) (unknown) Pantoprazole Sodium (unit s (unknown) date) (Pantoprazole 40 Mg unknown) Vial) 40 mg IV NOW ONE (unknown) (no (unknown) (unknown) Patellar (units (unkno wn) date) dislocation unknown) (unknown) (no (unknown) (unknown) Patient 27-year-old (unit s (unknown) date) female with unknown) significant history of anxiety, psychogenic (unknown) (no (unknown) (unknown) Patient History (units (unknown) date) unknown) (unknown) (no (unknown) (unknown) Patient: (units (unkno wn) date) Eileen Jorgensen M unknown) MR# (unknown) (no (unknown) (unknown) Pelvic congestion (units (unknown) date) (2013) unknown) (unknown) (no (unknown) (unknown) Penicillins (units (un known) date) [PENICILLINS] unknown) Allergy Mild Verified 04/22/22 14:44 (unknown) (no (unknown) (unknown) Plt Count (150-400) (unit s (unknown) date) X103/uL unknown) (unknown) (no (unknown) (unknown) Plt Count 245 (units ( unknown) date) (150-400) X103/uL unknown) (unknown) (no (unknown) (unknown) Point of Care (units ( unknown) date) Testing unknown) (unknown) (no (unknown) (unknown) Point of care (units ( unknown) date) testing: unknown) (unknown) (no (unknown) (unknown) Potassium (3.4-5.1) (unit s (unknown) date) mmol/L unknown) (unknown) (no (unknown) (unknown) Potassium 3.6 (units ( unknown) date) (3.4-5.1) mmol/L unknown) (unknown) (no (unknown) (unknown) Test (units (unknown) date) Results Negative unknown) (unknown) (no (unknown) (unknown) Prescriptions: (units (unknown) date) unknown) (unknown) (no (unknown) (unknown) Previous Rx's (units ( unknown) date) unknown) (unknown) (no (unknown) (unknown) Procalcitonin < (units (unknown) date) 0.03 (<0.5) ng/mL unknown) (unknown) (no (unknown) (unknown) Procalcitonin (units ( unknown) date) (<0.5) ng/mL unknown) (unknown) (no (unknown) (unknown) Procalcitonin Stat (units (unknown) date) unknown) (unknown) (no (unknown) (unknown) Prochlorperazine (units (unknown) date) (Prochlorperazine 10 unknown) Mg/2 Ml Vial) 10 mg IV NOW ONE (unknown) (no (unknown) (unknown) 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 unknown) (unknown) (no (unknown) (unknown) Pulse Oximetry 97 (units (unknown) date) 11/15/22 21:09 unknown) (unknown) (no (unknown) (unknown) Pulse Oximetry 97 (units (unknown) date) unknown) (unknown) (no (unknown) (unknown) Pulse Rate 78 (units ( unknown) date) 11/15/22 21:09 unknown) (unknown) (no (unknown) (unknown) Pulse Rate 78 60 (units (unknown) date) unknown) (unknown) (no (unknown) (unknown) RBC (4.0-5.2) (units ( unknown) date) X106/uL unknown) (unknown) (no (unknown) (unknown) RBC 4.04 (4.0-5.2) (units (unknown) date) X106/uL unknown) (unknown) (no (unknown) (unknown) RDW (11.6-14.8) % (units (unknown) date) unknown) (unknown) (no (unknown) (unknown) RDW 12.7 (units (unkno wn) date) (11.6-14.8) % unknown) (unknown) (no (unknown) (unknown) RESPIRATORY: Breath (unit s (unknown) date) sounds equal unknown) bilaterally, no wheezes rales or rhonchi. (unknown) (no (unknown) (unknown) RESPONSE (units (unkno wn) date) unknown) (unknown) (no (unknown) (unknown) Referrals: (units (unk nown) date) unknown) (unknown) (no (unknown) (unknown) Related Data (units (u nknown) date) unknown) (unknown) (no (unknown) (unknown) Respiratory Rate 16 (unit s (unknown) date) 11/15/22 21:09 unknown) (unknown) (no (unknown) (unknown) Respiratory Rate 16 (unit s (unknown) date) unknown) (unknown) (no (unknown) (unknown) Rx Instructions: (units (unknown) date) unknown) (unknown) (no (unknown) (unknown) SKIN: Warm, dry, no (unit s (unknown) date) laceration, no unknown) petechiae, no rashes or lesions. (unknown) (no (unknown) (unknown) See Rx Instructions (unit s (unknown) date) .ROUTE .COMPLEX Qty: unknown) 180 0RF (unknown) (no (unknown) (unknown) See Rx Instructions (unit s (unknown) date) .ROUTE .COMPLEX Qty: unknown) 2 0RF (unknown) (no (unknown) (unknown) See Rx Instructions (unit s (unknown) date) PO BEDTIME Qty: 45 unknown) 2RF (unknown) (no (unknown) (unknown) Signed By: (units (unk nown) date) unknown) (unknown) (no (unknown) (unknown) [facility] (units ( unknown) date) Hospital recently unknown) for an EGD which she was found to have erosive (unknown) (no (unknown) (unknown) Smoking Status: (units (unknown) date) Current every day unknown) smoker (unknown) (no (unknown) (unknown) Social History (units (unknown) date) (Reviewed 05/05/22 @ unknown) 21:08 by Vargas Hill MD) (unknown) (no (unknown) (unknown) Sodium (137-145) (units (unknown) date) mmol/L unknown) (unknown) (no (unknown) (unknown) Sodium 136 L (units (u nknown) date) (137-145) mmol/L unknown) (unknown) (no (unknown) (unknown) Sodium Chloride (units (unknown) date) (Normal Saline 0.9%) unknown) 1,000 mls @ 1,000 mls/hr IV BOLUS ONE (unknown) (no (unknown) (unknown) Stated Complaint: (units (unknown) date) abdominal pain, unknown) vomiting blood (unknown) (no (unknown) (unknown) Status post (units [...] Status post (units (un known) date) laparoscopy (2012) unknown) (unknown) (no (unknown) (unknown) Status post removal (unit s (unknown) date) of cervix unknown) (unknown) (no (unknown) (unknown) Status post (units (un known) date) tonsillectomy and unknown) adenoidectomy (unknown) (no (unknown) (unknown) Stop: 11/15/22 (units (unknown) date) 21:42 unknown) (unknown) (no (unknown) (unknown) Stop: 11/15/22 (units (unknown) date) 22:03 unknown) (unknown) (no (unknown) (unknown) Stop: 11/15/22 (units (unknown) date) 22:12 unknown) (unknown) (no (unknown) (unknown) Stop: 11/15/22 (units (unknown) date) 22:51 unknown) (unknown) (no (unknown) (unknown) Substance Use Type: (unit s (unknown) date) does not use unknown) (unknown) (no (unknown) (unknown) Surgical History (units (unknown) date) (Reviewed 05/05/22 @ unknown) 21:08 by Vargas Hill MD) (unknown) (no (unknown) (unknown) TAKE 2 TABLETS BY (units (unknown) date) MOUTH AT BEDTIME unknown) NEEDED FOR INSOMNIA (unknown) (no (unknown) (unknown) Take 1 tab p.o. at (units (unknown) date) HS. May take 1/2 tab unknown) p.o. during the day for anxiety (unknown) (no (unknown) (unknown) Temperature 97.6 F (units (unknown) date) 11/15/22 21:09 unknown) (unknown) (no (unknown) (unknown) Temperature 97.6 F (units (unknown) date) unknown) (unknown) (no (unknown) (unknown) Time Seen by (units (u nknown) date) Provider: 11/15/22 unknown) 21:09 (unknown) (no (unknown) (unknown) Total Bilirubin (units (unknown) date) (0.2-1.3) mg/dL unknown) (unknown) (no (unknown) (unknown) Total Bilirubin 0.5 (unit s (unknown) date) (0.2-1.3) mg/dL unknown) (unknown) (no (unknown) (unknown) Total Protein (units ( unknown) date) (6.3-8.2) g/dL unknown) (unknown) (no (unknown) (unknown) Total Protein 6.4 (units (unknown) date) (6.3-8.2) g/dL unknown) (unknown) (no (unknown) (unknown) UA Complete (units (un known) date) [Urinalysis and unknown) Microscopic] Stat (unknown) (no (unknown) (unknown) Ur Culture (units (unk nown) date) Indicated? Specimen unknown) cultured (unknown) (no (unknown) (unknown) Ur Culture (units (unk nown) date) Indicated? unknown) (unknown) (no (unknown) (unknown) Ur Leukocyte (units (u nknown) date) Esterase (NEGATIVE) unknown) (unknown) (no (unknown) (unknown) Ur Leukocyte (units (u nknown) date) Esterase 1+ H unknown) (NEGATIVE) (unknown) (no (unknown) (unknown) Ur Specific [place] (unit s (unknown) date) (1.000-1.035) unknown) (unknown) (no (unknown) (unknown) Ur Specific [place] (unit s (unknown) date) 1.025 (1.000-1.035) unknown) (unknown) (no (unknown) (unknown) Ur Squamous Epith (units (unknown) date) Cells (0-5/HPF) unknown) (unknown) (no (unknown) (unknown) Ur Squamous Epith (units (unknown) date) Cells 1-5 /hpf D unknown) (0-5/HPF) (unknown) (no (unknown) (unknown) Urine Appearance (units (unknown) date) Cloudy unknown) (unknown) (no (unknown) (unknown) Urine Appearance (units (unknown) date) unknown) (unknown) (no (unknown) (unknown) Urine Bacteria (units (unknown) date) (None) unknown) (unknown) (no (unknown) (unknown) Urine Bacteria (units (unknown) date) Occasional (0-1) unknown) (None) (unknown) (no (unknown) (unknown) Urine Bilirubin (units (unknown) date) (NEGATIVE) unknown) (unknown) (no (unknown) (unknown) Urine Bilirubin (units (unknown) date) Negative (NEGATIVE) unknown) (unknown) (no (unknown) (unknown) Urine Color Red (units (unknown) date) unknown) (unknown) (no (unknown) (unknown) Urine Color (units (un known) date) unknown) (unknown) (no (unknown) (unknown) Urine Culture Stat (units (unknown) date) unknown) (unknown) (no (unknown) (unknown) Urine Dip (units (unkn own) date) unknown) (unknown) (no (unknown) (unknown) Urine Glucose (UA) (units (unknown) date) (Negative) g/dL unknown) (unknown) (no (unknown) (unknown) Urine Glucose (UA) (units (unknown) date) Negative (Negative) unknown) g/dL (unknown) (no (unknown) (unknown) Urine Ketones (units ( unknown) date) (NEGATIVE) unknown) (unknown) (no (unknown) (unknown) Urine Ketones (units ( unknown) date) Negative (NEGATIVE) unknown) (unknown) (no (unknown) (unknown) Urine Nitrate (units ( unknown) date) (Negative) unknown) (unknown) (no (unknown) (unknown) Urine Nitrate (units ( unknown) date) Negative (Negative) unknown) (unknown) (no (unknown) (unknown) Urine Occult Blood (units (unknown) date) (Negative) unknown) (unknown) (no (unknown) (unknown) Urine Occult Blood (units (unknown) date) 3+ H (Negative) unknown) (unknown) (no (unknown) (unknown) Urine Protein (units ( unknown) date) (Negative) unknown) (unknown) (no (unknown) (unknown) Urine Protein 1+ H (units (unknown) date) (Negative) unknown) (unknown) (no (unknown) (unknown) Urine RBC >100/hpf (units (unknown) date) H (0-5/HPF) unknown) (unknown) (no (unknown) (unknown) Urine RBC (0-5/HPF) (unit s (unknown) date) unknown) (unknown) (no (unknown) (unknown) Urine Specific (units (unknown) date) [place] 1.020 unknown) (unknown) (no (unknown) (unknown) Urine Urobilinogen (units (unknown) date) (0.2) E.U./dL unknown) (unknown) (no (unknown) (unknown) Urine Urobilinogen (units (unknown) date) 1.0 (0.2) E.U./dL unknown) (unknown) (no (unknown) (unknown) Urine WBC (0-5/HPF) (unit s (unknown) date) unknown) (unknown) (no (unknown) (unknown) Urine WBC 1-5/hpf (units (unknown) date) (0-5/HPF) unknown) (unknown) (no (unknown) (unknown) Urine pH (4.5-8.0) (units (unknown) date) unknown) (unknown) (no (unknown) (unknown) Urine pH 6.5 (units (u nknown) date) (4.5-8.0) unknown) (unknown) (no (unknown) (unknown) Vital Signs - 8 hr (units (unknown) date) unknown) (unknown) (no (unknown) (unknown) Vital Signs (units (un known) date) unknown) (unknown) (no (unknown) (unknown) Vital signs: (units (u nknown) date) unknown) (unknown) (no (unknown) (unknown) WBC (4.5-11.0) (units (unknown) date) X103/uL unknown) (unknown) (no (unknown) (unknown) WBC 6.4 (4.5-11.0) (units (unknown) date) X103/uL unknown) (unknown) (no (unknown) (unknown) Christi Johnson (units (unknown) date) L, DNP, [employer] unknown) [Primary Care Provider] (unknown) (no (unknown) (unknown) [Embedded Image Not (unit s (unknown) date) Available] unknown) (unknown) (no (unknown) (unknown) [From BACTRIM] (units (unknown) date) unknown) (unknown) (no (unknown) (unknown) [IODINATED CONTRAST (unit s (unknown) date) MEDIA unknown) (unknown) (no (unknown) (unknown) [METOCLOPRAMIDE] (units (unknown) date) unknown) (unknown) (no (unknown) (unknown) [SHELLFISH DERIVED] (unit s (unknown) date) unknown) (unknown) (no (unknown) (unknown) actually was seen (units (unknown) date) evaluated by her unknown) primary care provider yesterday she was (unknown) (no (unknown) (unknown) adhesive [ADHESIVE] (unit s (unknown) date) Allergy Mild unknown) Verified 04/22/22 14:44 (unknown) (no (unknown) (unknown) alcohol intake (units (unknown) date) frequency: unknown) holidays/special occasions only (unknown) (no (unknown) (unknown) amoxicillin (units (un known) date) [AMOXICILLIN] unknown) Allergy Mild Verified 04/22/22 14:44 (unknown) (no (unknown) (unknown) apply to single (units (unknown) date) elbow, wrist or unknown) hand; for hand includes palm/fingers/back of (unknown) (no (unknown) (unknown) cephalexin (units (unk nown) date) [CEPHALEXIN] Allergy unknown) Unknown Verified 04/22/22 14:44 (unknown) (no (unknown) (unknown) chills. No flank (units (unknown) date) pain. He is had unknown) multiple CTs previously. She was admitted at (unknown) (no (unknown) (unknown) ciprofloxacin (units ( unknown) date) [CIPROFLOXACIN] unknown) Allergy Unknown Verified 04/22/22 14:44 (unknown) (no (unknown) (unknown) clindamycin (units (un known) date) [CLINDAMYCIN] unknown) Allergy Unknown Verified 04/22/22 14:44 (unknown) (no (unknown) (unknown) diazepam 10 mg (units (unknown) date) tablet 10 mg PO QID unknown) #120 tabs 10/12/21 (unknown) (no (unknown) (unknown) diazepam 10 mg (units (unknown) date) tablet unknown) (unknown) (no (unknown) (unknown) diazepam 5 mg (units ( unknown) date) tablet (Valium) 5 mg unknown) PO TID PRN muscle spasm #10 10/19/21 (unknown) (no (unknown) (unknown) diazepam [Valium] 5 (unit s (unknown) date) mg tablet unknown) (unknown) (no (unknown) (unknown) diclofenac sodium 1 (unit s (unknown) date) % gel unknown) (unknown) (no (unknown) (unknown) diclofenac sodium 1 (unit s (unknown) date) % topical gel 2 g unknown) topical QID #100 grams 05/05/22 (unknown) (no (unknown) (unknown) distress. (units (unkn own) date) unknown) (unknown) (no (unknown) (unknown) doxycycline (units (un known) date) [DOXYCYCLINE] unknown) Allergy Mild Verified 04/22/22 14:44 (unknown) (no (unknown) (unknown) epinephrine 0.3 (units (unknown) date) mg/0.3 mL See Rx unknown) Instructions .Route 02/27/22 (unknown) (no (unknown) (unknown) epinephrine 0.3 (units (unknown) date) mg/0.3 mL unknown) auto-injector (unknown) (no (unknown) (unknown) gastritis. She can (units (unknown) date) not have NSAIDs. She unknown) is taking oxycodone. (unknown) (no (unknown) (unknown) hand (units (unkno wn) date) unknown) (unknown) (no (unknown) (unknown) having galactorrhea (unit s (unknown) date) which started 2 days unknown) ago. She says this is persisting. She (unknown) (no (unknown) (unknown) household members: (units (unknown) date) spouse and children unknown) (unknown) (no (unknown) (unknown) hydrocodone Allergy (unit s (unknown) date) Mild rash Verified unknown) 04/22/22 14:44 (unknown) (no (unknown) (unknown) injection, (units (unk nown) date) auto-injector unknown) .COMPLEX #2 ea (unknown) (no (unknown) (unknown) intact (units (unkno wn) date) unknown) (unknown) (no (unknown) (unknown) iodine [IODINE] (units (unknown) date) Allergy Mild unknown) Verified 04/22/22 14:44 (unknown) (no (unknown) (unknown) is metoclopramide (units (unknown) date) Phenergan and unknown) oxycodone all which increase and (unknown) (no (unknown) (unknown) lamotrigine 200 mg (units (unknown) date) tablet 200 mg PO unknown) DAILY #30 tabs 01/18/22 (unknown) (no (unknown) (unknown) lamotrigine 200 mg (units (unknown) date) tablet unknown) (unknown) (no (unknown) (unknown) latex [LATEX] (units ( unknown) date) Allergy Unknown unknown) Verified 04/22/22 14:44 (unknown) (no (unknown) (unknown) lidocaine AdvReac (units (unknown) date) Palpitation Verified unknown) 04/22/22 14:44 (unknown) (no (unknown) (unknown) lives (units (unkno wn) date) independently: Yes unknown) (unknown) (no (unknown) (unknown) marital status: (units (unknown) date) unknown) (unknown) (no (unknown) (unknown) membranes (units (unkn own) date) unknown) (unknown) (no (unknown) (unknown) metformin 500 mg (units (unknown) date) tablet 500 mg PO BID unknown) #60 tabs 02/21/22 (unknown) (no (unknown) (unknown) metformin 500 mg (units (unknown) date) tablet unknown) (unknown) (no (unknown) (unknown) metoclopramide (units (unknown) date) Allergy Mild unknown) Verified 04/22/22 14:44 (unknown) (no (unknown) (unknown) mg tablet (units (unkn own) date) (Percocet) unknown) (unknown) (no (unknown) (unknown) multiple EGDs, e (units (unknown) date) history of vaginal unknown) bleeding despite hysterectomy, presents (unknown) (no (unknown) (unknown) neuroleptic (units (un known) date) seizures, PTSD unknown) depression, erosive gastritis causing hematemesis (unknown) (no (unknown) (unknown) occupational (units (u nknown) date) status: employed unknown) (unknown) (no (unknown) (unknown) oxycodone 10 mg (units (unknown) date) tablet 5 mg PO Q6H unknown) PRN pain #14 tabs 05/05/22 (unknown) (no (unknown) (unknown) oxycodone 10 mg (units (unknown) date) tablet unknown) (unknown) (no (unknown) (unknown) oxycodone-acetamino (unit s (unknown) date) phen 5 mg-325 1 tab unknown) PO Q8H PRN pain #6 tabs 04/22/22 (unknown) (no (unknown) (unknown) oxycodone-acetamino (unit s (unknown) date) phen [Percocet] unknown) 5-325 mg tablet (unknown) (no (unknown) (unknown) prolactin levels. (units (unknown) date) She apparently does unknown) have vaginal bleeding there is a known (unknown) (no (unknown) (unknown) quetiapine 100 mg (units (unknown) date) tablet 100 mg PO unknown) BEDTIME 02/27/22 02/27/22 (unknown) (no (unknown) (unknown) quetiapine 100 mg (units (unknown) date) tablet unknown) (unknown) (no (unknown) (unknown) quetiapine 25 mg (units (unknown) date) tablet See Rx unknown) Instructions PO BEDTIME #45 01/18/22 (unknown) (no (unknown) (unknown) quetiapine 25 mg (units (unknown) date) tablet unknown) (unknown) (no (unknown) (unknown) received per (units (u nknown) date) another provider. unknown) (unknown) (no (unknown) (unknown) s (units (unkno wn) date) unknown) (unknown) (no (unknown) (unknown) sertraline 100 mg (units (unknown) date) tablet 200 mg PO unknown) DAILY #60 tabs 01/18/22 (unknown) (no (unknown) (unknown) sertraline 100 mg (units (unknown) date) tablet unknown) (unknown) (no (unknown) (unknown) shellfish derived (units (unknown) date) Allergy Severe unknown) ANAPHYLAXIS Verified 04/22/22 14:44 (unknown) (no (unknown) (unknown) small opening in the (unit s (unknown) date) cuff of her unknown) hysterectomy as identified her surgeon when she (unknown) (no (unknown) (unknown) started lactating (units (unknown) date) she started vaginal unknown) bleeding again. She denies fever or (unknown) (no (unknown) (unknown) sulfamethoxazole (units (unknown) date) Allergy Mild RASH unknown) Verified 04/22/22 14:44 (unknown) (no (unknown) (unknown) tabs (units (unkno wn) date) unknown) (unknown) (no (unknown) (unknown) tobacco type: (units ( unknown) date) vaping unknown) (unknown) (no (unknown) (unknown) today with left (units (unknown) date) lower quadrant pain unknown) nausea vomiting in vaginal bleeding. She (unknown) (no (unknown) (unknown) tramadol 50 mg (units (unknown) date) tablet 100 mg PO BID unknown) PRN severe pain 03/22/22 (unknown) (no (unknown) (unknown) tramadol 50 mg (units (unknown) date) tablet unknown) (unknown) (no (unknown) (unknown) trazodone 100 mg (units (unknown) date) tablet See Rx unknown) Instructions .Route 11/20/21 (unknown) (no (unknown) (unknown) trazodone 100 mg (units (unknown) date) tablet unknown) (unknown) (no (unknown) (unknown) trimethoprim [From (units (unknown) date) BACTRIM] Allergy unknown) Mild RASH Verified 04/22/22 14:44 Result panel 349 (unknown) (no (unknown) (unknown) (no value) (units (unk nown) date) unknown) (unknown) (no (unknown) (unknown) (scale score 7-10) (units (unknown) date) #60 tabs unknown) (unknown) (no (unknown) (unknown) .COMPLEX #180 tabs (units (unknown) date) unknown) (unknown) (no (unknown) (unknown) 11/15/22 11/15/22 (units (unknown) date) 11/15/22 Range/Units unknown) (unknown) (no (unknown) (unknown) 11/15/22 11/15/22 (units (unknown) date) Range/Units unknown) (unknown) (no (unknown) (unknown) 11/15/22 21:20 (units (unknown) date) unknown) (unknown) (no (unknown) (unknown) 11/15/22 21:32 (units (unknown) date) unknown) (unknown) (no (unknown) (unknown) 11/15/22 22:00 (units (unknown) date) unknown) (unknown) (no (unknown) (unknown) 11/15/22 (units (unkno wn) date) unknown) (unknown) (no (unknown) (unknown) 1 tab PO Q8H PRN (units (unknown) date) (Reason: pain) Qty: unknown) 6 0RF (unknown) (no (unknown) (unknown) 10 mg PO QID Qty: (units (unknown) date) 120 2RF unknown) (unknown) (no (unknown) (unknown) 100 mg PO BEDTIME (units (unknown) date) unknown) (unknown) (no (unknown) (unknown) 100 mg PO BID PRN (units (unknown) date) (Reason: severe pain unknown) (scale score 7-10)) Qty: 60 0RF (unknown) (no (unknown) (unknown) 2 g topical QID (units (unknown) date) Qty: 100 3RF unknown) (unknown) (no (unknown) (unknown) 200 mg PO DAILY (units (unknown) date) Qty: 30 2RF unknown) (unknown) (no (unknown) (unknown) 200 mg PO DAILY (units (unknown) date) Qty: 60 2RF unknown) (unknown) (no (unknown) (unknown) 21:09 11/15/22 (units (unknown) date) unknown) (unknown) (no (unknown) (unknown) 21:20 21:32 21:32 (units (unknown) date) unknown) (unknown) (no (unknown) (unknown) 21:32 21:32 (units (un known) date) unknown) (unknown) (no (unknown) (unknown) 22:00 (units (unkno wn) date) unknown) (unknown) (no (unknown) (unknown) 5 mg PO Q6H PRN (units (unknown) date) (Reason: pain) Qty: unknown) 14 0RF (unknown) (no (unknown) (unknown) 5 mg PO TID PRN (units (unknown) date) (Reason: muscle unknown) spasm) Qty: 10 0RF (unknown) (no (unknown) (unknown) 5 mm (units (unkno wn) date) unknown) (unknown) (no (unknown) (unknown) 500 mg PO BID Qty: (units (unknown) date) 60 0RF unknown) (unknown) (no (unknown) (unknown) : [id number] (units (u nknown) date) unknown) (unknown) (no (unknown) (unknown) ? (units (unkno wn) date) unknown) (unknown) (no (unknown) (unknown) ABDOMEN: Soft, mild (unit s (unknown) date) tenderness left unknown) quadrant guarding rebound (unknown) (no (unknown) (unknown) ALT (<35) IU/L (units (unknown) date) unknown) (unknown) (no (unknown) (unknown) ALT 16 (<35) IU/L (units (unknown) date) unknown) (unknown) (no (unknown) (unknown) AST (14-36) IU/L (units (unknown) date) unknown) (unknown) (no (unknown) (unknown) AST 16 (14-36) IU/L (unit s (unknown) date) unknown) (unknown) (no (unknown) (unknown) Admin: 11/15/22 (units (unknown) date) 22:24 Dose: 1,000 unknown) mls/hr (unknown) (no (unknown) (unknown) Age/Sex: 27 / F (units (unknown) date) unknown) (unknown) (no (unknown) (unknown) Albumin (3.5-5.0) (units (unknown) date) g/dL unknown) (unknown) (no (unknown) (unknown) Albumin 3.9 (units (un known) date) (3.5-5.0) g/dL unknown) (unknown) (no (unknown) (unknown) Albumin/Globulin (units (unknown) date) Ratio (1.0-2.8) unknown) (unknown) (no (unknown) (unknown) Albumin/Globulin (units (unknown) date) Ratio 1.6 (1.0-2.8) unknown) (unknown) (no (unknown) (unknown) Alkaline (units (unkno wn) date) Phosphatase (38-126) unknown) U/L (unknown) (no (unknown) (unknown) Alkaline (units (unkno wn) date) Phosphatase 43 unknown) (38-126) U/L (unknown) (no (unknown) (unknown) Allergies (units (unkn own) date) unknown) (unknown) (no (unknown) (unknown) Allergy/AdvReac (units (unknown) date) Type Severity unknown) Reaction Status Date / Time (unknown) (no (unknown) (unknown) 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 unknown) (unknown) (no (unknown) (unknown) BUN (7-17) mg/dL (units (unknown) date) unknown) (unknown) (no (unknown) (unknown) BUN 15 (7-17) mg/dL (unit s (unknown) date) unknown) (unknown) (no (unknown) (unknown) BUN/Creatinine (units (unknown) date) Ratio (6-22) unknown) (unknown) (no (unknown) (unknown) BUN/Creatinine (units (unknown) date) Ratio 17.2 (6-22) unknown) (unknown) (no (unknown) (unknown) Baso # (Auto) (units ( unknown) date) (0-100) /uL unknown) (unknown) (no (unknown) (unknown) Baso # (Auto) 100 (units (unknown) date) (0-100) /uL unknown) (unknown) (no (unknown) (unknown) Baso % (Auto) (0-2) (unit s (unknown) date) % unknown) (unknown) (no (unknown) (unknown) Baso % (Auto) 1.9 (units (unknown) date) (0-2) % unknown) (unknown) (no (unknown) (unknown) Bedside Urine (units ( unknown) date) Bilirubin - Negative unknown) (unknown) (no (unknown) (unknown) Bedside Urine (units ( unknown) date) Glucose Negative unknown) (unknown) (no (unknown) (unknown) Bedside Urine (units ( unknown) date) Ketone - Negative unknown) (unknown) (no (unknown) (unknown) Bedside Urine (units ( unknown) date) Leukocytes + 70 unknown) (unknown) (no (unknown) (unknown) Bedside Urine (units ( unknown) date) Nitrite - Negative unknown) (unknown) (no (unknown) (unknown) Bedside Urine (units ( unknown) date) Occult Blood - unknown) Negative (unknown) (no (unknown) (unknown) Bedside Urine (units ( unknown) date) Protein + 30 unknown) (unknown) (no (unknown) (unknown) Bedside Urine (units ( unknown) date) Urobilinogen +/- 1mg unknown) (unknown) (no (unknown) (unknown) Bedside Urine pH (units (unknown) date) 6.0 unknown) (unknown) (no (unknown) (unknown) Blood Pressure (units (unknown) date) 140/63 11/15/22 unknown) 21:09 (unknown) (no (unknown) (unknown) Blood Pressure (units (unknown) date) 140/63 140/63 unknown) (unknown) (no (unknown) (unknown) Body wall:? (units (un known) date) Unremarkable unknown) (unknown) (no (unknown) (unknown) Bones:? No acute or (unit s (unknown) date) suspicious osseous unknown) finding. (unknown) (no (unknown) (unknown) Bowel and (units (unkn own) date) peritoneum:? No unknown) evidence of small bowel obstruction.? There are (unknown) (no (unknown) (unknown) Breast cancer (units ( unknown) date) unknown) (unknown) (no (unknown) (unknown) CAD (coronary (units ( unknown) date) artery disease) unknown) (unknown) (no (unknown) (unknown) CARDIOVASCULAR: (units (unknown) date) Regular rate and unknown) rhythm without murmurs, rubs or gallops. (unknown) (no (unknown) (unknown) CBC Auto Diff (units ( unknown) date) [Complete Blood unknown) Count AUTO DIFF] Stat (unknown) (no (unknown) (unknown) CMP [Comprehensive (units (unknown) date) Metabolic Panel] unknown) Stat (unknown) (no (unknown) (unknown) COMPARISON:? [facility] (unit s (unknown) date) [facility], , unknown) MR ABDOMEN MRCP, 06/12/2022, 10:50.? (unknown) (no (unknown) (unknown) CT abdomen pelvis (units (unknown) date) wo con Stat unknown) (unknown) (no (unknown) (unknown) CT scan - (units (unkn own) date) abdomen/pelvis: unknown) (unknown) (no (unknown) (unknown) Calcium (8.4-10.2) (units (unknown) date) mg/dL unknown) (unknown) (no (unknown) (unknown) Calcium 8.3 L (units ( unknown) date) (8.4-10.2) mg/dL unknown) (unknown) (no (unknown) (unknown) Carbon Dioxide (units (unknown) date) (22-32) mmol/L unknown) (unknown) (no (unknown) (unknown) Carbon Dioxide 27 (units (unknown) date) (22-32) mmol/L unknown) (unknown) (no (unknown) (unknown) Chief Complaint: (units (unknown) date) Abdominal Pain unknown) (unknown) (no (unknown) (unknown) Chloride (98-107) (units (unknown) date) mmol/L unknown) (unknown) (no (unknown) (unknown) Chloride 103 (units (u nknown) date) (98-107) mmol/L unknown) (unknown) (no (unknown) (unknown) Consider CT IVP and (unit s (unknown) date) possible cystoscopy unknown) for further workup of hematuria.? (unknown) (no (unknown) (unknown) Consider ultrasound (unit s (unknown) date) correlation if unknown) needed to further workup pelvic organs.? (unknown) (no (unknown) (unknown) Contract void and (units (unknown) date) provider will offer unknown) no further tramadol refills if tramadol (unknown) (no (unknown) (unknown) Course (units (unkno wn) date) unknown) (unknown) (no (unknown) (unknown) Creatinine (units (unk nown) date) (0.52-1.04) mg/dL unknown) (unknown) (no (unknown) (unknown) Creatinine 0.87 (units (unknown) date) (0.52-1.04) mg/dL unknown) (unknown) (no (unknown) (unknown) : 1995 (units (unknown) date) Acct:[id number] unknown) (unknown) (no (unknown) (unknown) Date of Service: (units (unknown) date) 11/15/22 unknown) (unknown) (no (unknown) (unknown) Departure (units (unkn own) date) unknown) (unknown) (no (unknown) (unknown) Dictated by: Alan (units (unknown) date) Raphael Castaneda on unknown) 11/15/2022 at 22:28 ?? (unknown) (no (unknown) (unknown) Diphenhydramine HCl (unit s (unknown) date) (Diphenhydramine 50 unknown) Mg/Ml Vial) 25 mg IV NOW ONE (unknown) (no (unknown) (unknown) Discharge Plan (units (unknown) date) unknown) (unknown) (no (unknown) (unknown) Discontinued (units (u nknown) date) Medications unknown) (unknown) (no (unknown) (unknown) Documented By: BS (units (unknown) date) unknown) (unknown) (no (unknown) (unknown) Documented By: SPF (units (unknown) date) unknown) (unknown) (no (unknown) (unknown) Dose Instruction: (units (unknown) date) unknown) (unknown) (no (unknown) (unknown) ED Orders (units (unkn own) date) unknown) (unknown) (no (unknown) (unknown) ER Physician: (units ( unknown) date) Stephie Escalante D.O. unknown) (unknown) (no (unknown) (unknown) EXTREMITIES: Normal (unit s (unknown) date) range of motion, no unknown) clubbing or edema. Neurovascularly (unknown) (no (unknown) (unknown) Emergency Report (units (unknown) date) unknown) (unknown) (no (unknown) (unknown) Endometriosis (units ( unknown) date) unknown) (unknown) (no (unknown) (unknown) Eos # (Auto) (units (u nknown) date) (0-450) /uL unknown) (unknown) (no (unknown) (unknown) Eos # (Auto) 100 (units (unknown) date) (0-450) /uL unknown) (unknown) (no (unknown) (unknown) Eos % (Auto) (2-4) (units (unknown) date) % unknown) (unknown) (no (unknown) (unknown) Eos % (Auto) 2.0 (units (unknown) date) (2-4) % unknown) (unknown) (no (unknown) (unknown) Esterase (units (unkno wn) date) unknown) (unknown) (no (unknown) (unknown) Estimated GFR > 60 (units (unknown) date) (>60) mL/min unknown) (unknown) (no (unknown) (unknown) Estimated GFR (>60) (unit s (unknown) date) mL/min unknown) (unknown) (no (unknown) (unknown) Exam (units (unkno wn) date) unknown) (unknown) (no (unknown) (unknown) FINDINGS:? (units (unk nown) date) unknown) (unknown) (no (unknown) (unknown) Family History (units (unknown) date) (Reviewed 05/05/22 @ unknown) 21:08 by Vargas Hill MD) (unknown) (no (unknown) (unknown) GENERAL: Alert (units (unknown) date) pleasant unknown) well-appearing 27-year-old female and in no acute (unknown) (no (unknown) (unknown) : No CVA (units (unk nown) date) tenderness unknown) (unknown) (no (unknown) (unknown) General (units (unkno wn) date) unknown) (unknown) (no (unknown) (unknown) Globulin (1.7-4.1) (units (unknown) date) g/dL unknown) (unknown) (no (unknown) (unknown) Globulin 2.5 (units (u nknown) date) (1.7-4.1) g/dL unknown) (unknown) (no (unknown) (unknown) Glucose (70-100) (units (unknown) date) mg/dL unknown) (unknown) (no (unknown) (unknown) Glucose 96 (70-100) (unit s (unknown) date) mg/dL unknown) (unknown) (no (unknown) (unknown) Grandmother (units (un known) date) Ovarian unknown) cancer (unknown) (no (unknown) (unknown) H/O unilateral (units (unknown) date) oophorectomy unknown) () (unknown) (no (unknown) (unknown) H/O: hysterectomy (units (unknown) date) unknown) (unknown) (no (unknown) (unknown) HEENT: Head (units (un known) date) atraumatic,EOMI, unknown) pupils reactive, face symmetric, moist mucous (unknown) (no (unknown) (unknown) HPI - Abdominal (units (unknown) date) Pain unknown) (unknown) (no (unknown) (unknown) HPI narrative: (units (unknown) date) unknown) (unknown) (no (unknown) (unknown) Hct (36-46) % (units ( unknown) date) unknown) (unknown) (no (unknown) (unknown) Hct 35.8 L (36-46) (units (unknown) date) % unknown) (unknown) (no (unknown) (unknown) Hematuria (units (unkn own) date) unknown) (unknown) (no (unknown) (unknown) Hgb (12.0-16.0) (units (unknown) date) g/dL unknown) (unknown) (no (unknown) (unknown) Hgb 12.6 (units (unkno wn) date) (12.0-16.0) g/dL unknown) (unknown) (no (unknown) (unknown) History of Present (units (unknown) date) Illness unknown) (unknown) (no (unknown) (unknown) History of ureter (units (unknown) date) stent unknown) (unknown) (no (unknown) (unknown) Hold Instructions: (units (unknown) date) NEEDS TO SEE unknown) NEUROLOGY (unknown) (no (unknown) (unknown) Hold Instructions: (units (unknown) date) SEEN BY PSYCHIATRY unknown) (unknown) (no (unknown) (unknown) Home Medications (units (unknown) date) unknown) (unknown) (no (unknown) (unknown) Hydromorphone HCl (units (unknown) date) (Hydromorphone 1 Mg unknown) Inj) 1 mg IV NOW ONE (unknown) (no (unknown) (unknown) Hyperlipidemia (units (unknown) date) unknown) (unknown) (no (unknown) (unknown) Hypertension (units (u nknown) date) unknown) (unknown) (no (unknown) (unknown) Hysterectomy. (units ( unknown) date) unknown) (unknown) (no (unknown) (unknown) IMPRESSION:? No (units (unknown) date) acute abdominal unknown) pelvic pathology.? No calcified renal stones.? (unknown) (no (unknown) (unknown) INDICATIONS:? Left (units (unknown) date) lower quadrant pain, unknown) hematuria (unknown) (no (unknown) (unknown) INJECT (units (unkno wn) date) INTRAMUSCULARLY unknown) EVERY 20 MINUTES NEEDED FOR ANAPHYLAXIS UNTIL (unknown) (no (unknown) (unknown) IV DYE] (units (unkno wn) date) unknown) (unknown) (no (unknown) (unknown) Image quality:? (units (unknown) date) Good unknown) (unknown) (no (unknown) (unknown) Imaging Data (units (u nknown) date) unknown) (unknown) (no (unknown) (unknown) Initial Vital Signs (unit s (unknown) date) unknown) (unknown) (no (unknown) (unknown) Initial Vital (units ( unknown) date) Signs: unknown) (unknown) (no (unknown) (unknown) Iodinated Contrast (units (unknown) date) Media Allergy unknown) Unknown Verified 04/22/22 14:44 (unknown) (no (unknown) (unknown) [facility] (units (unknown) date) [address] unknown) [place] [address] (unknown) (no (unknown) (unknown) Lab Data (units (unkno wn) date) unknown) (unknown) (no (unknown) (unknown) Lab Results (units (un known) date) unknown) (unknown) (no (unknown) (unknown) Labs: (units (unkno wn) date) unknown) (unknown) (no (unknown) (unknown) Lactate (0.7-2.1) (units (unknown) date) mmol/L unknown) (unknown) (no (unknown) (unknown) Lactate (Lactic (units (unknown) date) Acid) Stat unknown) (unknown) (no (unknown) (unknown) Lactate 1.2 (units (un known) date) (0.7-2.1) mmol/L unknown) (unknown) (no (unknown) (unknown) Last Admin: (units (un known) date) 11/15/22 22:00 Dose: unknown) 10 mg (unknown) (no (unknown) (unknown) Last Admin: (units (un known) date) 11/15/22 22:01 Dose: unknown) 40 mg (unknown) (no (unknown) (unknown) Last Admin: (units (un known) date) 11/15/22 22:21 Dose: unknown) Not Given (unknown) (no (unknown) (unknown) Last Admin: (units (un known) date) 11/15/22 23:01 Dose: unknown) 1 mg (unknown) (no (unknown) (unknown) Last Infusion: (units (unknown) date) 11/15/22 23:34 Dose: unknown) 0 mls/hr (unknown) (no (unknown) (unknown) Limit as possible. (units (unknown) date) Prescribed per 03/21 unknown) signed pain management contract. (unknown) (no (unknown) (unknown) Lipase (23-300) U/L (unit s (unknown) date) unknown) (unknown) (no (unknown) (unknown) Lipase 86 (23-300) (units (unknown) date) U/L unknown) (unknown) (no (unknown) (unknown) Lipase Stat (units (un known) date) unknown) (unknown) (no (unknown) (unknown) Lower chest:? (units ( unknown) date) Unremarkable.? No unknown) hiatal hernia. (unknown) (no (unknown) (unknown) Lymph # (Auto) (units (unknown) date) (4273-2827) /uL unknown) (unknown) (no (unknown) (unknown) Lymph # (Auto) 2200 (unit s (unknown) date) (1410-6283) /uL unknown) (unknown) (no (unknown) (unknown) Lymph % (Auto) (units (unknown) date) (25-40) % unknown) (unknown) (no (unknown) (unknown) Lymph % (Auto) 34.4 (unit s (unknown) date) (25-40) % unknown) (unknown) (no (unknown) (unknown) MCH (26-34) PG (units (unknown) date) unknown) (unknown) (no (unknown) (unknown) MCH 31.2 (26-34) PG (unit s (unknown) date) unknown) (unknown) (no (unknown) (unknown) MCHC (30-36) % (units (unknown) date) unknown) (unknown) (no (unknown) (unknown) MCHC 35.3 (30-36) % (unit s (unknown) date) unknown) (unknown) (no (unknown) (unknown) MCV (80-100) fL (units (unknown) date) unknown) (unknown) (no (unknown) (unknown) MCV 88.6 (80-100) (units (unknown) date) fL unknown) (unknown) (no (unknown) (unknown) MDM - Abdominal (units (unknown) date) Pain unknown) (unknown) (no (unknown) (unknown) Major depressive (units (unknown) date) disorder unknown) (unknown) (no (unknown) (unknown) Medical History (units (unknown) date) (Reviewed 05/05/22 @ unknown) 21:08 by Vargas Hill MD) (unknown) (no (unknown) (unknown) Medication (units (unk nown) date) Instructions unknown) Recorded Confirmed (unknown) (no (unknown) (unknown) Medication (units (unk nown) date) Instructions unknown) Recorded (unknown) (no (unknown) (unknown) Methylprednisolone (units (unknown) date) (Methylprednisolone unknown) 125 Mg/2 Ml Vial) 125 mg IV NOW ONE (unknown) (no (unknown) (unknown) [place] # (Auto) (units ( unknown) date) (0-900) /uL unknown) (unknown) (no (unknown) (unknown) [place] # (Auto) 400 (units (unknown) date) (0-900) /uL unknown) (unknown) (no (unknown) (unknown) [place] % (Auto) (units ( unknown) date) (3-14) % unknown) (unknown) (no (unknown) (unknown) [place] % (Auto) 6.9 (units (unknown) date) (3-14) % unknown) (unknown) (no (unknown) (unknown) Morbid obesity (units (unknown) date) unknown) (unknown) (no (unknown) (unknown) 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 (unknown) (no (unknown) (unknown) Nephrolithiasis (units (unknown) date) (-2018) unknown) (unknown) (no (unknown) (unknown) Neut # (Auto) (units ( unknown) date) (6357-1567) /uL unknown) (unknown) (no (unknown) (unknown) Neut # (Auto) 3500 (units (unknown) date) (8847-5407) /uL unknown) (unknown) (no (unknown) (unknown) Neut % (Auto) (units ( unknown) date) (50-75) % unknown) (unknown) (no (unknown) (unknown) Neut % (Auto) 54.8 (units (unknown) date) (50-75) % unknown) (unknown) (no (unknown) (unknown) No Action (units (unkn own) date) unknown) (unknown) (no (unknown) (unknown) No hydronephrosis.? (unit s (unknown) date) No calcified unknown) stones.? As before, minimally hyperattenuating (unknown) (no (unknown) (unknown) No (units (unkno wn) date) unknown) (unknown) (no (unknown) (unknown) Noncontrast 5 mm (units (unknown) date) thick sections unknown) acquired from the diaphragms to the symphysis.? (unknown) (no (unknown) (unknown) Ordered: (units (unkno wn) date) unknown) (unknown) (no (unknown) (unknown) Orders (units (unkno wn) date) unknown) (unknown) (no (unknown) (unknown) Ovarian cyst (units (u nknown) date) unknown) (unknown) (no (unknown) (unknown) Oxygen Delivery (units (unknown) date) Method Room Air unknown) 11/15/22 21:09 (unknown) (no (unknown) (unknown) Oxygen Delivery (units (unknown) date) Method Room Air unknown) (unknown) (no (unknown) (unknown) PCOS (polycystic (units (unknown) date) ovarian syndrome) unknown) (unknown) (no (unknown) (unknown) PROCEDURE:? CT (units (unknown) date) ABDOMEN PELVIS WO unknown) CON (unknown) (no (unknown) (unknown) Pantoprazole Sodium (unit s (unknown) date) (Pantoprazole 40 Mg unknown) Vial) 40 mg IV NOW ONE (unknown) (no (unknown) (unknown) Patellar (units (unkno wn) date) dislocation unknown) (unknown) (no (unknown) (unknown) Patient 27-year-old (unit s (unknown) date) female with unknown) significant history of anxiety, psychogenic (unknown) (no (unknown) (unknown) Patient History (units (unknown) date) unknown) (unknown) (no (unknown) (unknown) Patient: (units (unkno wn) date) Eileen Jorgensen unknown) MR# (unknown) (no (unknown) (unknown) Pelvic congestion (units (unknown) date) (2013) unknown) (unknown) (no (unknown) (unknown) Pelvis:? Bladder is (unit s (unknown) date) underdistended which unknown) limits evaluation.? Hysterectomy.? (unknown) (no (unknown) (unknown) Penicillins (units (un known) date) [PENICILLINS] unknown) Allergy Mild Verified 04/22/22 14:44 (unknown) (no (unknown) (unknown) Plt Count (150-400) (unit s (unknown) date) X103/uL unknown) (unknown) (no (unknown) (unknown) Plt Count 245 (units ( unknown) date) (150-400) X103/uL unknown) (unknown) (no (unknown) (unknown) Point of Care (units ( unknown) date) Testing unknown) (unknown) (no (unknown) (unknown) Point of care (units ( unknown) date) testing: unknown) (unknown) (no (unknown) (unknown) Potassium (3.4-5.1) (unit s (unknown) date) mmol/L unknown) (unknown) (no (unknown) (unknown) Potassium 3.6 (units ( unknown) date) (3.4-5.1) mmol/L unknown) (unknown) (no (unknown) (unknown) Test (units (unknown) date) Results Negative unknown) (unknown) (no (unknown) (unknown) Prescriptions: (units (unknown) date) unknown) (unknown) (no (unknown) (unknown) Previous Rx's (units ( unknown) date) unknown) (unknown) (no (unknown) (unknown) Procalcitonin < (units (unknown) date) 0.03 (<0.5) ng/mL unknown) (unknown) (no (unknown) (unknown) Procalcitonin (units ( unknown) date) (<0.5) ng/mL unknown) (unknown) (no (unknown) (unknown) Procalcitonin Stat (units (unknown) date) unknown) (unknown) (no (unknown) (unknown) Prochlorperazine (units (unknown) date) (Prochlorperazine 10 unknown) Mg/2 Ml Vial) 10 mg IV NOW ONE (unknown) (no (unknown) (unknown) Prominent (units (unkn own) date) unknown) (unknown) (no (unknown) (unknown) 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 unknown) (unknown) (no (unknown) (unknown) Pulse Oximetry 97 (units (unknown) date) 11/15/22 21:09 unknown) (unknown) (no (unknown) (unknown) Pulse Oximetry 97 (units (unknown) date) unknown) (unknown) (no (unknown) (unknown) Pulse Rate 78 (units ( unknown) date) 11/15/22 21:09 unknown) (unknown) (no (unknown) (unknown) Pulse Rate 78 60 (units (unknown) date) unknown) (unknown) (no (unknown) (unknown) RBC (4.0-5.2) (units ( unknown) date) X106/uL unknown) (unknown) (no (unknown) (unknown) RBC 4.04 (4.0-5.2) (units (unknown) date) X106/uL unknown) (unknown) (no (unknown) (unknown) RDW (11.6-14.8) % (units (unknown) date) unknown) (unknown) (no (unknown) (unknown) RDW 12.7 (units (unkno wn) date) (11.6-14.8) % unknown) (unknown) (no (unknown) (unknown) RESPIRATORY: Breath (unit s (unknown) date) sounds equal unknown) bilaterally, no wheezes rales or rhonchi. (unknown) (no (unknown) (unknown) RESPONSE (units (unkno wn) date) unknown) (unknown) (no (unknown) (unknown) Radiologist's (units ( unknown) date) Impression: unknown) (unknown) (no (unknown) (unknown) Referrals: (units (unk nown) date) unknown) (unknown) (no (unknown) (unknown) Related Data (units (u nknown) date) unknown) (unknown) (no (unknown) (unknown) Respiratory Rate 16 (unit s (unknown) date) 11/15/22 21:09 unknown) (unknown) (no (unknown) (unknown) Respiratory Rate 16 (unit s (unknown) date) unknown) (unknown) (no (unknown) (unknown) Rx Instructions: (units (unknown) date) unknown) (unknown) (no (unknown) (unknown) SKIN: Warm, dry, no (unit s (unknown) date) laceration, no unknown) petechiae, no rashes or lesions. (unknown) (no (unknown) (unknown) See Rx Instructions (unit s (unknown) date) .ROUTE .COMPLEX Qty: unknown) 180 0RF (unknown) (no (unknown) (unknown) See Rx Instructions (unit s (unknown) date) .ROUTE .COMPLEX Qty: unknown) 2 0RF (unknown) (no (unknown) (unknown) See Rx Instructions (unit s (unknown) date) PO BEDTIME Qty: 45 unknown) 2RF (unknown) (no (unknown) (unknown) Signed By: (units (unk nown) date) unknown) (unknown) (no (unknown) (unknown) [facility] (units ( unknown) date) Hospital recently unknown) for an EGD which she was found to have erosive (unknown) (no (unknown) (unknown) [place] (units (unkno wn) date) unknown) (unknown) (no (unknown) (unknown) Smoking Status: (units (unknown) date) Current every day unknown) smoker (unknown) (no (unknown) (unknown) Social History (units (unknown) date) (Reviewed 05/05/22 @ unknown) 21:08 by Vargas Hill MD) (unknown) (no (unknown) (unknown) Sodium (137-145) (units (unknown) date) mmol/L unknown) (unknown) (no (unknown) (unknown) Sodium 136 L (units (u nknown) date) (137-145) mmol/L unknown) (unknown) (no (unknown) (unknown) Sodium Chloride (units (unknown) date) (Normal Saline 0.9%) unknown) 1,000 mls @ 1,000 mls/hr IV BOLUS ONE (unknown) (no (unknown) (unknown) Solid organs:? (units (unknown) date) Liver is unknown) unremarkable.? Gallbladder is absent.? No pathologic (unknown) (no (unknown) (unknown) Stated Complaint: (units (unknown) date) abdominal pain, unknown) vomiting blood (unknown) (no (unknown) (unknown) Status post (units [...] Status post knee (units (unknown) date) surgery (2013) unknown) (unknown) (no (unknown) (unknown) Status post [...] unknown) (unknown) (no (unknown) (unknown) Status post removal (unit s (unknown) date) of cervix unknown) (unknown) (no (unknown) (unknown) Status post (units (un known) date) tonsillectomy and unknown) adenoidectomy (unknown) (no (unknown) (unknown) Stop: 11/15/22 (units (unknown) date) 21:42 unknown) (unknown) (no (unknown) (unknown) Stop: 11/15/22 (units (unknown) date) 22:03 unknown) (unknown) (no (unknown) (unknown) Stop: 11/15/22 (units (unknown) date) 22:12 unknown) (unknown) (no (unknown) (unknown) Stop: 11/15/22 (units (unknown) date) 22:51 unknown) (unknown) (no (unknown) (unknown) Substance Use Type: (unit s (unknown) date) does not use unknown) (unknown) (no (unknown) (unknown) Surgical History (units (unknown) date) (Reviewed 05/05/22 @ unknown) 21:08 by Vargas Hill MD) (unknown) (no (unknown) (unknown) TAKE 2 TABLETS BY (units (unknown) date) MOUTH AT BEDTIME unknown) NEEDED FOR INSOMNIA (unknown) (no (unknown) (unknown) TECHNIQUE:? (units (un known) date) unknown) (unknown) (no (unknown) (unknown) Take 1 tab p.o. at (units (unknown) date) HS. May take 1/2 tab unknown) p.o. during the day for anxiety (unknown) (no (unknown) (unknown) Temperature 97.6 F (units (unknown) date) 11/15/22 21:09 unknown) (unknown) (no (unknown) (unknown) Temperature 97.6 F (units (unknown) date) unknown) (unknown) (no (unknown) (unknown) Time Seen by (units (u nknown) date) Provider: 11/15/22 unknown) 21:09 (unknown) (no (unknown) (unknown) Total Bilirubin (units (unknown) date) (0.2-1.3) mg/dL unknown) (unknown) (no (unknown) (unknown) Total Bilirubin 0.5 (unit s (unknown) date) (0.2-1.3) mg/dL unknown) (unknown) (no (unknown) (unknown) Total Protein (units ( unknown) date) (6.3-8.2) g/dL unknown) (unknown) (no (unknown) (unknown) Total Protein 6.4 (units (unknown) date) (6.3-8.2) g/dL unknown) (unknown) (no (unknown) (unknown) UA Complete (units (un known) date) [Urinalysis and unknown) Microscopic] Stat (unknown) (no (unknown) (unknown) Ur Culture (units (unk nown) date) Indicated? Specimen unknown) cultured (unknown) (no (unknown) (unknown) Ur Culture (units (unk nown) date) Indicated? unknown) (unknown) (no (unknown) (unknown) Ur Leukocyte (units (u nknown) date) Esterase (NEGATIVE) unknown) (unknown) (no (unknown) (unknown) Ur Leukocyte (units (u nknown) date) Esterase 1+ H unknown) (NEGATIVE) (unknown) (no (unknown) (unknown) Ur Specific [place] (unit s (unknown) date) (1.000-1.035) unknown) (unknown) (no (unknown) (unknown) Ur Specific [place] (unit s (unknown) date) 1.025 (1.000-1.035) unknown) (unknown) (no (unknown) (unknown) Ur Squamous Epith (units (unknown) date) Cells (0-5/HPF) unknown) (unknown) (no (unknown) (unknown) Ur Squamous Epith (units (unknown) date) Cells 1-5 /hpf D unknown) (0-5/HPF) (unknown) (no (unknown) (unknown) Urine Appearance (units (unknown) date) Cloudy unknown) (unknown) (no (unknown) (unknown) Urine Appearance (units (unknown) date) unknown) (unknown) (no (unknown) (unknown) Urine Bacteria (units (unknown) date) (None) unknown) (unknown) (no (unknown) (unknown) Urine Bacteria (units (unknown) date) Occasional (0-1) unknown) (None) (unknown) (no (unknown) (unknown) Urine Bilirubin (units (unknown) date) (NEGATIVE) unknown) (unknown) (no (unknown) (unknown) Urine Bilirubin (units (unknown) date) Negative (NEGATIVE) unknown) (unknown) (no (unknown) (unknown) Urine Color Red (units (unknown) date) unknown) (unknown) (no (unknown) (unknown) Urine Color (units (un known) date) unknown) (unknown) (no (unknown) (unknown) Urine Culture Stat (units (unknown) date) unknown) (unknown) (no (unknown) (unknown) Urine Dip (units (unkn own) date) unknown) (unknown) (no (unknown) (unknown) Urine Glucose (UA) (units (unknown) date) (Negative) g/dL unknown) (unknown) (no (unknown) (unknown) Urine Glucose (UA) (units (unknown) date) Negative (Negative) unknown) g/dL (unknown) (no (unknown) (unknown) Urine Ketones (units ( unknown) date) (NEGATIVE) unknown) (unknown) (no (unknown) (unknown) Urine Ketones (units ( unknown) date) Negative (NEGATIVE) unknown) (unknown) (no (unknown) (unknown) Urine Nitrate (units ( unknown) date) (Negative) unknown) (unknown) (no (unknown) (unknown) Urine Nitrate (units ( unknown) date) Negative (Negative) unknown) (unknown) (no (unknown) (unknown) Urine Occult Blood (units (unknown) date) (Negative) unknown) (unknown) (no (unknown) (unknown) Urine Occult Blood (units (unknown) date) 3+ H (Negative) unknown) (unknown) (no (unknown) (unknown) Urine Protein (units ( unknown) date) (Negative) unknown) (unknown) (no (unknown) (unknown) Urine Protein 1+ H (units (unknown) date) (Negative) unknown) (unknown) (no (unknown) (unknown) Urine RBC >100/hpf (units (unknown) date) H (0-5/HPF) unknown) (unknown) (no (unknown) (unknown) Urine RBC (0-5/HPF) (unit s (unknown) date) unknown) (unknown) (no (unknown) (unknown) Urine Specific (units (unknown) date) [place] 1.020 unknown) (unknown) (no (unknown) (unknown) Urine Urobilinogen (units (unknown) date) (0.2) E.U./dL unknown) (unknown) (no (unknown) (unknown) Urine Urobilinogen (units (unknown) date) 1.0 (0.2) E.U./dL unknown) (unknown) (no (unknown) (unknown) Urine WBC (0-5/HPF) (unit s (unknown) date) unknown) (unknown) (no (unknown) (unknown) Urine WBC 1-5/hpf (units (unknown) date) (0-5/HPF) unknown) (unknown) (no (unknown) (unknown) Urine pH (4.5-8.0) (units (unknown) date) unknown) (unknown) (no (unknown) (unknown) Urine pH 6.5 (units (u nknown) date) (4.5-8.0) unknown) (unknown) (no (unknown) (unknown) [facility], (units (unknown) date) CT, CT ABDOMEN unknown) PELVIS WITHOUT CONTRAST, 06/11/2022, 19:33.? (unknown) (no (unknown) (unknown) [facility], (units (unknown) date) MR, MR ABDOMEN MRCP, unknown) 06/12/2022, 10:50. (unknown) (no (unknown) (unknown) Vessels and lymph (units (unknown) date) nodes:? No abdominal unknown) aortic aneurysm or pathologic adenopathy (unknown) (no (unknown) (unknown) Vital Signs - 8 hr (units (unknown) date) unknown) (unknown) (no (unknown) (unknown) Vital Signs (units (un known) date) unknown) (unknown) (no (unknown) (unknown) Vital signs: (units (u nknown) date) unknown) (unknown) (no (unknown) (unknown) WBC (4.5-11.0) (units (unknown) date) X103/uL unknown) (unknown) (no (unknown) (unknown) WBC 6.4 (4.5-11.0) (units (unknown) date) X103/uL unknown) (unknown) (no (unknown) (unknown) Christi Johnson (units (unknown) date) L, DNP, [employer] unknown) [Primary Care Provider] (unknown) (no (unknown) (unknown) [Embedded Image Not (unit s (unknown) date) Available] unknown) (unknown) (no (unknown) (unknown) [From BACTRIM] (units (unknown) date) unknown) (unknown) (no (unknown) (unknown) [IODINATED CONTRAST (unit s (unknown) date) MEDIA unknown) (unknown) (no (unknown) (unknown) [METOCLOPRAMIDE] (units (unknown) date) unknown) (unknown) (no (unknown) (unknown) [SHELLFISH DERIVED] (unit s (unknown) date) unknown) (unknown) (no (unknown) (unknown) about 14 (units (unkno wn) date) unknown) (unknown) (no (unknown) (unknown) according to (units (u nknown) date) unknown) (unknown) (no (unknown) (unknown) actually was seen (units (unknown) date) evaluated by her unknown) primary care provider yesterday she was (unknown) (no (unknown) (unknown) adhesive [ADHESIVE] (unit s (unknown) date) Allergy Mild unknown) Verified 04/22/22 14:44 (unknown) (no (unknown) (unknown) alcohol intake (units (unknown) date) frequency: unknown) holidays/special occasions only (unknown) (no (unknown) (unknown) amoxicillin (units (un known) date) [AMOXICILLIN] unknown) Allergy Mild Verified 04/22/22 14:44 (unknown) (no (unknown) (unknown) appearance of the (units (unknown) date) renal pyramids unknown) bilaterally. (unknown) (no (unknown) (unknown) apply to single (units (unknown) date) elbow, wrist or unknown) hand; for hand includes palm/fingers/back of (unknown) (no (unknown) (unknown) by size (units (unkno wn) date) unknown) (unknown) (no (unknown) (unknown) cephalexin (units (unk nown) date) [CEPHALEXIN] Allergy unknown) Unknown Verified 04/22/22 14:44 (unknown) (no (unknown) (unknown) chills. No flank (units (unknown) date) pain. He is had unknown) multiple CTs previously. She was admitted at (unknown) (no (unknown) (unknown) ciprofloxacin (units ( unknown) date) [CIPROFLOXACIN] unknown) Allergy Unknown Verified 04/22/22 14:44 (unknown) (no (unknown) (unknown) clindamycin (units (un known) date) [CLINDAMYCIN] unknown) Allergy Unknown Verified 04/22/22 14:44 (unknown) (no (unknown) (unknown) cm.? No adrenal (units (unknown) date) nodules.? unknown) (unknown) (no (unknown) (unknown) colonic (units (unkno wn) date) unknown) (unknown) (no (unknown) (unknown) coronal and (units (un known) date) sagittal reformats unknown) were then performed.? For radiation dose (unknown) (no (unknown) (unknown) criteria. (units (unkn own) date) unknown) (unknown) (no (unknown) (unknown) diazepam 10 mg (units (unknown) date) tablet 10 mg PO QID unknown) #120 tabs 10/12/21 (unknown) (no (unknown) (unknown) diazepam 10 mg (units (unknown) date) tablet unknown) (unknown) (no (unknown) (unknown) diazepam 5 mg (units ( unknown) date) tablet (Valium) 5 mg unknown) PO TID PRN muscle spasm #10 10/19/21 (unknown) (no (unknown) (unknown) diazepam [Valium] 5 (unit s (unknown) date) mg tablet unknown) (unknown) (no (unknown) (unknown) diclofenac sodium 1 (unit s (unknown) date) % gel unknown) (unknown) (no (unknown) (unknown) diclofenac sodium 1 (unit s (unknown) date) % topical gel 2 g unknown) topical QID #100 grams 05/05/22 (unknown) (no (unknown) (unknown) dilation of (units (un known) date) unknown) (unknown) (no (unknown) (unknown) distress. (units (unkn own) date) unknown) (unknown) (no (unknown) (unknown) diverticula.? No (units (unknown) date) abscess or unknown) pathologic ascites. (unknown) (no (unknown) (unknown) doxycycline (units (un known) date) [DOXYCYCLINE] unknown) Allergy Mild Verified 04/22/22 14:44 (unknown) (no (unknown) (unknown) epinephrine 0.3 (units (unknown) date) mg/0.3 mL See Rx unknown) Instructions .Route 02/27/22 (unknown) (no (unknown) (unknown) epinephrine 0.3 (units (unknown) date) mg/0.3 mL unknown) auto-injector (unknown) (no (unknown) (unknown) evaluated on CT, (units (unknown) date) consider ultrasound unknown) correlation if needed. (unknown) (no (unknown) (unknown) following was (units ( unknown) date) used:? automated unknown) exposure control, adjustment of mA and/or kV (unknown) (no (unknown) (unknown) gastritis. She can (units (unknown) date) not have NSAIDs. She unknown) is taking oxycodone. (unknown) (no (unknown) (unknown) hand (units (unkno wn) date) unknown) (unknown) (no (unknown) (unknown) having galactorrhea (unit s (unknown) date) which started 2 days unknown) ago. She says this is persisting. She (unknown) (no (unknown) (unknown) household members: (units (unknown) date) spouse and children unknown) (unknown) (no (unknown) (unknown) hydrocodone Allergy (unit s (unknown) date) Mild rash Verified unknown) 04/22/22 14:44 (unknown) (no (unknown) (unknown) hydronephrosis.? (units (unknown) date) Nonspecific trace unknown) hyperattenuating appearance of the renal (unknown) (no (unknown) (unknown) injection, (units (unk nown) date) auto-injector unknown) .COMPLEX #2 ea (unknown) (no (unknown) (unknown) intact (units (unkno wn) date) unknown) (unknown) (no (unknown) (unknown) iodine [IODINE] (units (unknown) date) Allergy Mild unknown) Verified 04/22/22 14:44 (unknown) (no (unknown) (unknown) is metoclopramide (units (unknown) date) Phenergan and unknown) oxycodone all which increase and (unknown) (no (unknown) (unknown) lamotrigine 200 mg (units (unknown) date) tablet 200 mg PO unknown) DAILY #30 tabs 01/18/22 (unknown) (no (unknown) (unknown) lamotrigine 200 mg (units (unknown) date) tablet unknown) (unknown) (no (unknown) (unknown) latex [LATEX] (units ( unknown) date) Allergy Unknown unknown) Verified 04/22/22 14:44 (unknown) (no (unknown) (unknown) left ovary, with (units (unknown) date) decreased size of unknown) previously seen cyst, reproductive organs are (unknown) (no (unknown) (unknown) lidocaine AdvReac (units (unknown) date) Palpitation Verified unknown) 04/22/22 14:44 (unknown) (no (unknown) (unknown) lives (units (unkno wn) date) independently: Yes unknown) (unknown) (no (unknown) (unknown) marital status: (units (unknown) date) unknown) (unknown) (no (unknown) (unknown) membranes (units (unkn own) date) unknown) (unknown) (no (unknown) (unknown) metformin 500 mg (units (unknown) date) tablet 500 mg PO BID unknown) #60 tabs 02/21/22 (unknown) (no (unknown) (unknown) metformin 500 mg (units (unknown) date) tablet unknown) (unknown) (no (unknown) (unknown) metoclopramide (units (unknown) date) Allergy Mild unknown) Verified 04/22/22 14:44 (unknown) (no (unknown) (unknown) mg tablet (units (unkn own) date) (Percocet) unknown) (unknown) (no (unknown) (unknown) multiple EGDs, e (units (unknown) date) history of vaginal unknown) bleeding despite hysterectomy, presents (unknown) (no (unknown) (unknown) neuroleptic (units (un known) date) seizures, PTSD unknown) depression, erosive gastritis causing hematemesis (unknown) (no (unknown) (unknown) not well (units (unkno wn) date) unknown) (unknown) (no (unknown) (unknown) occupational (units (u nknown) date) status: employed unknown) (unknown) (no (unknown) (unknown) oxycodone 10 mg (units (unknown) date) tablet 5 mg PO Q6H unknown) PRN pain #14 tabs 05/05/22 (unknown) (no (unknown) (unknown) oxycodone 10 mg (units (unknown) date) tablet unknown) (unknown) (no (unknown) (unknown) oxycodone-acetamino (unit s (unknown) date) phen 5 mg-325 1 tab unknown) PO Q8H PRN pain #6 tabs 04/22/22 (unknown) (no (unknown) (unknown) oxycodone-acetamino (unit s (unknown) date) phen [Percocet] unknown) 5-325 mg tablet (unknown) (no (unknown) (unknown) patient size.? (units (unknown) date) unknown) (unknown) (no (unknown) (unknown) prolactin levels. (units (unknown) date) She apparently does unknown) have vaginal bleeding there is a known (unknown) (no (unknown) (unknown) pyramids is (units (un known) date) unknown) (unknown) (no (unknown) (unknown) quetiapine 100 mg (units (unknown) date) tablet 100 mg PO unknown) BEDTIME 02/27/22 02/27/22 (unknown) (no (unknown) (unknown) quetiapine 100 mg (units (unknown) date) tablet unknown) (unknown) (no (unknown) (unknown) quetiapine 25 mg (units (unknown) date) tablet See Rx unknown) Instructions PO BEDTIME #45 01/18/22 (unknown) (no (unknown) (unknown) quetiapine 25 mg (units (unknown) date) tablet unknown) (unknown) (no (unknown) (unknown) received per (units (u nknown) date) another provider. unknown) (unknown) (no (unknown) (unknown) reduction, the (units (unknown) date) unknown) (unknown) (no (unknown) (unknown) s (units (unkno wn) date) unknown) (unknown) (no (unknown) (unknown) sertraline 100 mg (units (unknown) date) tablet 200 mg PO unknown) DAILY #60 tabs 01/18/22 (unknown) (no (unknown) (unknown) sertraline 100 mg (units (unknown) date) tablet unknown) (unknown) (no (unknown) (unknown) shellfish derived (units (unknown) date) Allergy Severe unknown) ANAPHYLAXIS Verified 04/22/22 14:44 (unknown) (no (unknown) (unknown) small opening in the (unit s (unknown) date) cuff of her unknown) hysterectomy as identified her surgeon when she (unknown) (no (unknown) (unknown) sometimes (units (unkn own) date) associated with unknown) nephrocalcinosis. (unknown) (no (unknown) (unknown) started lactating (units (unknown) date) she started vaginal unknown) bleeding again. She denies fever or (unknown) (no (unknown) (unknown) sulfamethoxazole (units (unknown) date) Allergy Mild RASH unknown) Verified 04/22/22 14:44 (unknown) (no (unknown) (unknown) tabs (units (unkno wn) date) unknown) (unknown) (no (unknown) (unknown) the biliary tree or (units (unknown) date) pancreatic duct.? unknown) Similar borderline splenomegaly, measuring (unknown) (no (unknown) (unknown) tobacco type: (units ( unknown) date) vaping unknown) (unknown) (no (unknown) (unknown) today with left (units (unknown) date) lower quadrant pain unknown) nausea vomiting in vaginal bleeding. She (unknown) (no (unknown) (unknown) tramadol 50 mg (units (unknown) date) tablet 100 mg PO BID unknown) PRN severe pain 03/22/22 (unknown) (no (unknown) (unknown) tramadol 50 mg (units (unknown) date) tablet unknown) (unknown) (no (unknown) (unknown) trazodone 100 mg (units (unknown) date) tablet See Rx unknown) Instructions .Route 11/20/21 (unknown) (no (unknown) (unknown) trazodone 100 mg (units (unknown) date) tablet unknown) (unknown) (no (unknown) (unknown) trimethoprim [From (units (unknown) date) BACTRIM] Allergy unknown) Mild RASH Verified 04/22/22 14:44 Result panel 350 (unknown) (no (unknown) (unknown) (no value) (units (unk nown) date) unknown) (unknown) (no (unknown) (unknown) (scale score 7-10) (units (unknown) date) #60 tabs unknown) (unknown) (no (unknown) (unknown) .COMPLEX #180 tabs (units (unknown) date) unknown) (unknown) (no (unknown) (unknown) 11/15/22 11/15/22 (units (unknown) date) 11/15/22 Range/Units unknown) (unknown) (no (unknown) (unknown) 11/15/22 11/15/22 (units (unknown) date) Range/Units unknown) (unknown) (no (unknown) (unknown) 11/15/22 21:20 (units (unknown) date) unknown) (unknown) (no (unknown) (unknown) 11/15/22 21:32 (units (unknown) date) unknown) (unknown) (no (unknown) (unknown) 11/15/22 22:00 (units (unknown) date) unknown) (unknown) (no (unknown) (unknown) 11/15/22 (units (unkno wn) date) unknown) (unknown) (no (unknown) (unknown) 1 tab PO Q8H PRN (units (unknown) date) (Reason: pain) Qty: unknown) 6 0RF (unknown) (no (unknown) (unknown) 10 mg PO QID Qty: (units (unknown) date) 120 2RF unknown) (unknown) (no (unknown) (unknown) 100 mg PO BEDTIME (units (unknown) date) unknown) (unknown) (no (unknown) (unknown) 100 mg PO BID PRN (units (unknown) date) (Reason: severe pain unknown) (scale score 7-10)) Qty: 60 0RF (unknown) (no (unknown) (unknown) 2 g topical QID (units (unknown) date) Qty: 100 3RF unknown) (unknown) (no (unknown) (unknown) 200 mg PO DAILY (units (unknown) date) Qty: 30 2RF unknown) (unknown) (no (unknown) (unknown) 200 mg PO DAILY (units (unknown) date) Qty: 60 2RF unknown) (unknown) (no (unknown) (unknown) 21:09 11/15/22 (units (unknown) date) unknown) (unknown) (no (unknown) (unknown) 21:20 21:32 21:32 (units (unknown) date) unknown) (unknown) (no (unknown) (unknown) 21:32 21:32 (units (un known) date) unknown) (unknown) (no (unknown) (unknown) 22:00 (units (unkno wn) date) unknown) (unknown) (no (unknown) (unknown) 5 mg PO Q6H PRN (units (unknown) date) (Reason: pain) Qty: unknown) 14 0RF (unknown) (no (unknown) (unknown) 5 mg PO TID PRN (units (unknown) date) (Reason: muscle unknown) spasm) Qty: 10 0RF (unknown) (no (unknown) (unknown) 5 mm (units (unkno wn) date) unknown) (unknown) (no (unknown) (unknown) 500 mg PO BID Qty: (units (unknown) date) 60 0RF unknown) (unknown) (no (unknown) (unknown) : [id number] (units (u nknown) date) unknown) (unknown) (no (unknown) (unknown) ? (units (unkno wn) date) unknown) (unknown) (no (unknown) (unknown) ABDOMEN: Soft, mild (unit s (unknown) date) tenderness left unknown) quadrant guarding rebound (unknown) (no (unknown) (unknown) ALT (<35) IU/L (units (unknown) date) unknown) (unknown) (no (unknown) (unknown) ALT 16 (<35) IU/L (units (unknown) date) unknown) (unknown) (no (unknown) (unknown) AST (14-36) IU/L (units (unknown) date) unknown) (unknown) (no (unknown) (unknown) AST 16 (14-36) IU/L (unit s (unknown) date) unknown) (unknown) (no (unknown) (unknown) Admin: 11/15/ (units (unknown) date) 22:24 Dose: 1,000 unknown) mls/hr (unknown) (no (unknown) (unknown) Age/Sex: 27 / F (units (unknown) date) unknown) (unknown) (no (unknown) (unknown) Albumin (3.5-5.0) (units (unknown) date) g/dL unknown) (unknown) (no (unknown) (unknown) Albumin 3.9 (units (un known) date) (3.5-5.0) g/dL unknown) (unknown) (no (unknown) (unknown) Albumin/Globulin (units (unknown) date) Ratio (1.0-2.8) unknown) (unknown) (no (unknown) (unknown) Albumin/Globulin (units (unknown) date) Ratio 1.6 (1.0-2.8) unknown) (unknown) (no (unknown) (unknown) Alkaline (units (unkno wn) date) Phosphatase (38-126) unknown) U/L (unknown) (no (unknown) (unknown) Alkaline (units (unkno wn) date) Phosphatase 43 unknown) (38-126) U/L (unknown) (no (unknown) (unknown) Allergies (units (unkn own) date) unknown) (unknown) (no (unknown) (unknown) Allergy/AdvReac (units (unknown) date) Type Severity unknown) Reaction Status Date / Time (unknown) (no (unknown) (unknown) Apparently this is (units (unknown) date) known because she is unknown) scheduled to have it fixed in November. 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 unknown) (unknown) (no (unknown) (unknown) BUN (7-17) mg/dL (units (unknown) date) unknown) (unknown) (no (unknown) (unknown) BUN 15 (7-17) mg/dL (unit s (unknown) date) unknown) (unknown) (no (unknown) (unknown) BUN/Creatinine (units (unknown) date) Ratio (6-22) unknown) (unknown) (no (unknown) (unknown) BUN/Creatinine (units (unknown) date) Ratio 17.2 (6-22) unknown) (unknown) (no (unknown) (unknown) Baso # (Auto) (units ( unknown) date) (0-100) /uL unknown) (unknown) (no (unknown) (unknown) Baso # (Auto) 100 (units (unknown) date) (0-100) /uL unknown) (unknown) (no (unknown) (unknown) Baso % (Auto) (0-2) (unit s (unknown) date) % unknown) (unknown) (no (unknown) (unknown) Baso % (Auto) 1.9 (units (unknown) date) (0-2) % unknown) (unknown) (no (unknown) (unknown) Bedside Urine (units ( unknown) date) Bilirubin - Negative unknown) (unknown) (no (unknown) (unknown) Bedside Urine (units ( unknown) date) Glucose Negative unknown) (unknown) (no (unknown) (unknown) Bedside Urine (units ( unknown) date) Ketone - Negative unknown) (unknown) (no (unknown) (unknown) Bedside Urine (units ( unknown) date) Leukocytes + 70 unknown) (unknown) (no (unknown) (unknown) Bedside Urine (units ( unknown) date) Nitrite - Negative unknown) (unknown) (no (unknown) (unknown) Bedside Urine (units ( unknown) date) Occult Blood - unknown) Negative (unknown) (no (unknown) (unknown) Bedside Urine (units ( unknown) date) Protein + 30 unknown) (unknown) (no (unknown) (unknown) Bedside Urine (units ( unknown) date) Urobilinogen +/- 1mg unknown) (unknown) (no (unknown) (unknown) Bedside Urine pH (units (unknown) date) 6.0 unknown) (unknown) (no (unknown) (unknown) Blood Pressure (units (unknown) date) 140/63 11/15/22 unknown) 21:09 (unknown) (no (unknown) (unknown) Blood Pressure (units (unknown) date) 140/63 140/63 unknown) (unknown) (no (unknown) (unknown) Body wall:? (units (un known) date) Unremarkable unknown) (unknown) (no (unknown) (unknown) Bones:? No acute or (unit s (unknown) date) suspicious osseous unknown) finding. (unknown) (no (unknown) (unknown) Bowel and (units (unkn own) date) peritoneum:? No unknown) evidence of small bowel obstruction.? There are (unknown) (no (unknown) (unknown) Breast cancer (units ( unknown) date) unknown) (unknown) (no (unknown) (unknown) CAD (coronary (units ( unknown) date) artery disease) unknown) (unknown) (no (unknown) (unknown) CARDIOVASCULAR: (units (unknown) date) Regular rate and unknown) rhythm without murmurs, rubs or gallops. (unknown) (no (unknown) (unknown) CBC Auto Diff (units ( unknown) date) [Complete Blood unknown) Count AUTO DIFF] Stat (unknown) (no (unknown) (unknown) CMP [Comprehensive (units (unknown) date) Metabolic Panel] unknown) Stat (unknown) (no (unknown) (unknown) COMPARISON:? [facility] (unit s (unknown) date) [facility], , unknown) MR ABDOMEN [facility], 06/12/2022, 10:50.? (unknown) (no (unknown) (unknown) CT abdomen pelvis (units (unknown) date) wo con Stat unknown) (unknown) (no (unknown) (unknown) CT scan - (units (unkn own) date) abdomen/pelvis: unknown) (unknown) (no (unknown) (unknown) Calcium (8.4-10.2) (units (unknown) date) mg/dL unknown) (unknown) (no (unknown) (unknown) Calcium 8.3 L (units ( unknown) date) (8.4-10.2) mg/dL unknown) (unknown) (no (unknown) (unknown) Carbon Dioxide (units (unknown) date) (22-32) mmol/L unknown) (unknown) (no (unknown) (unknown) Carbon Dioxide 27 (units (unknown) date) (22-32) mmol/L unknown) (unknown) (no (unknown) (unknown) Chief Complaint: (units (unknown) date) Abdominal Pain unknown) (unknown) (no (unknown) (unknown) Chloride (98-107) (units (unknown) date) mmol/L unknown) (unknown) (no (unknown) (unknown) Chloride 103 (units (u nknown) date) (98-107) mmol/L unknown) (unknown) (no (unknown) (unknown) Consider CT IVP and (unit s (unknown) date) possible cystoscopy unknown) for further workup of hematuria.? (unknown) (no (unknown) (unknown) Consider ultrasound (unit s (unknown) date) correlation if unknown) needed to further workup pelvic organs.? (unknown) (no (unknown) (unknown) Contract void and (units (unknown) date) provider will offer unknown) no further tramadol refills if tramadol (unknown) (no (unknown) (unknown) Course (units (unkno wn) date) unknown) (unknown) (no (unknown) (unknown) Creatinine (units (unk nown) date) (0.52-1.04) mg/dL unknown) (unknown) (no (unknown) (unknown) Creatinine 0.87 (units (unknown) date) (0.52-1.04) mg/dL unknown) (unknown) (no (unknown) (unknown) : 1995 (units (unknown) date) Acct:[id number] unknown) (unknown) (no (unknown) (unknown) Date of Service: (units (unknown) date) 11/15/22 unknown) (unknown) (no (unknown) (unknown) Departure (units (unkn own) date) unknown) (unknown) (no (unknown) (unknown) Dictated by: Alan (units (unknown) date) Raphael Castaneda on unknown) 11/15/2022 at 22:28 ?? (unknown) (no (unknown) (unknown) Diphenhydramine HCl (unit s (unknown) date) (Diphenhydramine 50 unknown) Mg/Ml Vial) 25 mg IV NOW ONE (unknown) (no (unknown) (unknown) Discharge Plan (units (unknown) date) unknown) (unknown) (no (unknown) (unknown) Discontinued (units (u nknown) date) Medications unknown) (unknown) (no (unknown) (unknown) Documented By: BS (units (unknown) date) unknown) (unknown) (no (unknown) (unknown) Documented By: SPF (units (unknown) date) unknown) (unknown) (no (unknown) (unknown) Dose Instruction: (units (unknown) date) unknown) (unknown) (no (unknown) (unknown) ED Orders (units (unkn own) date) unknown) (unknown) (no (unknown) (unknown) ER Physician: (units ( unknown) date) Stephie Escalante D.O. unknown) (unknown) (no (unknown) (unknown) EXTREMITIES: Normal (unit s (unknown) date) range of motion, no unknown) clubbing or edema. Neurovascularly (unknown) (no (unknown) (unknown) Emergency Report (units (unknown) date) unknown) (unknown) (no (unknown) (unknown) Endometriosis (units ( unknown) date) unknown) (unknown) (no (unknown) (unknown) Eos # (Auto) (units (u nknown) date) (0-450) /uL unknown) (unknown) (no (unknown) (unknown) Eos # (Auto) 100 (units (unknown) date) (0-450) /uL unknown) (unknown) (no (unknown) (unknown) Eos % (Auto) (2-4) (units (unknown) date) % unknown) (unknown) (no (unknown) (unknown) Eos % (Auto) 2.0 (units (unknown) date) (2-4) % unknown) (unknown) (no (unknown) (unknown) Esterase (units (unkno wn) date) unknown) (unknown) (no (unknown) (unknown) Estimated GFR > 60 (units (unknown) date) (>60) mL/min unknown) (unknown) (no (unknown) (unknown) Estimated GFR (>60) (unit s (unknown) date) mL/min unknown) (unknown) (no (unknown) (unknown) Exam (units (unkno wn) date) unknown) (unknown) (no (unknown) (unknown) FINDINGS:? (units (unk nown) date) unknown) (unknown) (no (unknown) (unknown) Family History (units (unknown) date) (Reviewed 05/05/22 @ unknown) 21:08 by Vargas Hill MD) (unknown) (no (unknown) (unknown) GENERAL: Alert (units (unknown) date) pleasant unknown) well-appearing 27-year-old female and in no acute (unknown) (no (unknown) (unknown) : No CVA (units (unk nown) date) tenderness unknown) (unknown) (no (unknown) (unknown) General (units (unkno wn) date) unknown) (unknown) (no (unknown) (unknown) Globulin (1.7-4.1) (units (unknown) date) g/dL unknown) (unknown) (no (unknown) (unknown) Globulin 2.5 (units (u nknown) date) (1.7-4.1) g/dL unknown) (unknown) (no (unknown) (unknown) Glucose (70-100) (units (unknown) date) mg/dL unknown) (unknown) (no (unknown) (unknown) Glucose 96 (70-100) (unit s (unknown) date) mg/dL unknown) (unknown) (no (unknown) (unknown) Grandmother (units (un known) date) Ovarian unknown) cancer (unknown) (no (unknown) (unknown) H/O unilateral (units (unknown) date) oophorectomy unknown) () (unknown) (no (unknown) (unknown) H/O: hysterectomy (units (unknown) date) unknown) (unknown) (no (unknown) (unknown) HEENT: Head (units (un known) date) atraumatic,EOMI, unknown) pupils reactive, face symmetric, moist mucous (unknown) (no (unknown) (unknown) HPI - Abdominal (units (unknown) date) Pain unknown) (unknown) (no (unknown) (unknown) HPI narrative: (units (unknown) date) unknown) (unknown) (no (unknown) (unknown) Hct (36-46) % (units ( unknown) date) unknown) (unknown) (no (unknown) (unknown) Hct 35.8 L (36-46) (units (unknown) date) % unknown) (unknown) (no (unknown) (unknown) Hematuria (units (unkn own) date) unknown) (unknown) (no (unknown) (unknown) Hgb (12.0-16.0) (units (unknown) date) g/dL unknown) (unknown) (no (unknown) (unknown) Hgb 12.6 (units (unkno wn) date) (12.0-16.0) g/dL unknown) (unknown) (no (unknown) (unknown) History of Present (units (unknown) date) Illness unknown) (unknown) (no (unknown) (unknown) History of ureter (units (unknown) date) stent unknown) (unknown) (no (unknown) (unknown) Hold Instructions: (units (unknown) date) NEEDS TO SEE unknown) NEUROLOGY (unknown) (no (unknown) (unknown) Hold Instructions: (units (unknown) date) SEEN BY PSYCHIATRY unknown) (unknown) (no (unknown) (unknown) Home Medications (units (unknown) date) unknown) (unknown) (no (unknown) (unknown) Hydromorphone HCl (units (unknown) date) (Hydromorphone 1 Mg unknown) Inj) 1 mg IV NOW ONE (unknown) (no (unknown) (unknown) Hyperlipidemia (units (unknown) date) unknown) (unknown) (no (unknown) (unknown) Hypertension (units (u nknown) date) unknown) (unknown) (no (unknown) (unknown) Hysterectomy. (units ( unknown) date) unknown) (unknown) (no (unknown) (unknown) IMPRESSION:? No (units (unknown) date) acute abdominal unknown) pelvic pathology.? No calcified renal stones.? (unknown) (no (unknown) (unknown) INDICATIONS:? Left (units (unknown) date) lower quadrant pain, unknown) hematuria (unknown) (no (unknown) (unknown) INJECT (units (unkno wn) date) INTRAMUSCULARLY unknown) EVERY 20 MINUTES NEEDED FOR ANAPHYLAXIS UNTIL (unknown) (no (unknown) (unknown) IV DYE] (units (unkno wn) date) unknown) (unknown) (no (unknown) (unknown) Image quality:? (units (unknown) date) Good unknown) (unknown) (no (unknown) (unknown) Imaging Data (units (u nknown) date) unknown) (unknown) (no (unknown) (unknown) Initial Vital Signs (unit s (unknown) date) unknown) (unknown) (no (unknown) (unknown) Initial Vital (units ( unknown) date) Signs: unknown) (unknown) (no (unknown) (unknown) Iodinated Contrast (units (unknown) date) Media Allergy unknown) Unknown Verified 04/22/22 14:44 (unknown) (no (unknown) (unknown) [facility] (units (unknown) date) [address] unknown) [place] [address] (unknown) (no (unknown) (unknown) Lab Data (units (unkno wn) date) unknown) (unknown) (no (unknown) (unknown) Lab Results (units (un known) date) unknown) (unknown) (no (unknown) (unknown) Labs: (units (unkno wn) date) unknown) (unknown) (no (unknown) (unknown) Lactate (0.7-2.1) (units (unknown) date) mmol/L unknown) (unknown) (no (unknown) (unknown) Lactate (Lactic (units (unknown) date) Acid) Stat unknown) (unknown) (no (unknown) (unknown) Lactate 1.2 (units (un known) date) (0.7-2.1) mmol/L unknown) (unknown) (no (unknown) (unknown) Last Admin: (units (un known) date) 11/15/22 22:00 Dose: unknown) 10 mg (unknown) (no (unknown) (unknown) Last Admin: (units (un known) date) 11/15/22 22:01 Dose: unknown) 40 mg (unknown) (no (unknown) (unknown) Last Admin: (units (un known) date) 11/15/22 22:21 Dose: unknown) Not Given (unknown) (no (unknown) (unknown) Last Admin: (units (un known) date) 11/15/22 23:01 Dose: unknown) 1 mg (unknown) (no (unknown) (unknown) Last Infusion: (units (unknown) date) 11/15/22 23:34 Dose: unknown) 0 mls/hr (unknown) (no (unknown) (unknown) Limit as possible. (units (unknown) date) Prescribed per 03/21 unknown) signed pain management contract. (unknown) (no (unknown) (unknown) Lipase (23-300) U/L (unit s (unknown) date) unknown) (unknown) (no (unknown) (unknown) Lipase 86 (23-300) (units (unknown) date) U/L unknown) (unknown) (no (unknown) (unknown) Lipase Stat (units (un known) date) unknown) (unknown) (no (unknown) (unknown) Lower chest:? (units ( unknown) date) Unremarkable.? No unknown) hiatal hernia. (unknown) (no (unknown) (unknown) Lymph # (Auto) (units (unknown) date) (1924-8350) /uL unknown) (unknown) (no (unknown) (unknown) Lymph # (Auto) 2200 (unit s (unknown) date) (3970-7767) /uL unknown) (unknown) (no (unknown) (unknown) Lymph % (Auto) (units (unknown) date) (25-40) % unknown) (unknown) (no (unknown) (unknown) Lymph % (Auto) 34.4 (unit s (unknown) date) (25-40) % unknown) (unknown) (no (unknown) (unknown) MCH (26-34) PG (units (unknown) date) unknown) (unknown) (no (unknown) (unknown) MCH 31.2 (26-34) PG (unit s (unknown) date) unknown) (unknown) (no (unknown) (unknown) MCHC (30-36) % (units (unknown) date) unknown) (unknown) (no (unknown) (unknown) MCHC 35.3 (30-36) % (unit s (unknown) date) unknown) (unknown) (no (unknown) (unknown) MCV (80-100) fL (units (unknown) date) unknown) (unknown) (no (unknown) (unknown) MCV 88.6 (80-100) (units (unknown) date) fL unknown) (unknown) (no (unknown) (unknown) MDM - Abdominal (units (unknown) date) Pain unknown) (unknown) (no (unknown) (unknown) MDM Narrative (units ( unknown) date) unknown) (unknown) (no (unknown) (unknown) Major depressive (units (unknown) date) disorder unknown) (unknown) (no (unknown) (unknown) Medical History (units (unknown) date) (Reviewed 05/05/22 @ unknown) 21:08 by Vargas Hill MD) (unknown) (no (unknown) (unknown) Medical decision (units (unknown) date) making narrative: unknown) (unknown) (no (unknown) (unknown) Medication (units (unk nown) date) Instructions unknown) Recorded Confirmed (unknown) (no (unknown) (unknown) Medication (units (unk nown) date) Instructions unknown) Recorded (unknown) (no (unknown) (unknown) Methylprednisolone (units (unknown) date) (Methylprednisolone unknown) 125 Mg/2 Ml Vial) 125 mg IV NOW ONE (unknown) (no (unknown) (unknown) [place] # (Auto) (units ( unknown) date) (0-900) /uL unknown) (unknown) (no (unknown) (unknown) [place] # (Auto) 400 (units (unknown) date) (0-900) /uL unknown) (unknown) (no (unknown) (unknown) [place] % (Auto) (units ( unknown) date) (3-14) % unknown) (unknown) (no (unknown) (unknown) [place] % (Auto) 6.9 (units (unknown) date) (3-14) % unknown) (unknown) (no (unknown) (unknown) Morbid obesity (units (unknown) date) unknown) (unknown) (no (unknown) (unknown) 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 (unknown) (no (unknown) (unknown) Nephrolithiasis (units (unknown) date) (-2018) unknown) (unknown) (no (unknown) (unknown) Neut # (Auto) (units ( unknown) date) (2042-8722) /uL unknown) (unknown) (no (unknown) (unknown) Neut # (Auto) 3500 (units (unknown) date) (2994-5799) /uL unknown) (unknown) (no (unknown) (unknown) Neut % (Auto) (units ( unknown) date) (50-75) % unknown) (unknown) (no (unknown) (unknown) Neut % (Auto) 54.8 (units (unknown) date) (50-75) % unknown) (unknown) (no (unknown) (unknown) No Action (units (unkn own) date) unknown) (unknown) (no (unknown) (unknown) No hydronephrosis.? (unit s (unknown) date) No calcified unknown) stones.? As before, minimally hyperattenuating (unknown) (no (unknown) (unknown) No (units (unkno wn) date) unknown) (unknown) (no (unknown) (unknown) Noncontrast 5 mm (units (unknown) date) thick sections unknown) acquired from the diaphragms to the symphysis.? (unknown) (no (unknown) (unknown) Ordered: (units (unkno wn) date) unknown) (unknown) (no (unknown) (unknown) Orders (units (unkno wn) date) unknown) (unknown) (no (unknown) (unknown) Ovarian cyst (units (u nknown) date) unknown) (unknown) (no (unknown) (unknown) Oxygen Delivery (units (unknown) date) Method Room Air unknown) 11/15/22 21:09 (unknown) (no (unknown) (unknown) Oxygen Delivery (units (unknown) date) Method Room Air unknown) (unknown) (no (unknown) (unknown) PCOS (polycystic (units (unknown) date) ovarian syndrome) unknown) (unknown) (no (unknown) (unknown) PROCEDURE:? CT (units (unknown) date) ABDOMEN PELVIS WO unknown) CON (unknown) (no (unknown) (unknown) Pantoprazole Sodium (unit s (unknown) date) (Pantoprazole 40 Mg unknown) Vial) 40 mg IV NOW ONE (unknown) (no (unknown) (unknown) Patellar (units (unkno wn) date) dislocation unknown) (unknown) (no (unknown) (unknown) Patient 27-year-old (unit s (unknown) date) female with multiple unknown) complicated medical issues. Parents (unknown) (no (unknown) (unknown) Patient 27-year-old (unit s (unknown) date) female with unknown) significant history of anxiety, psychogenic (unknown) (no (unknown) (unknown) Patient History (units (unknown) date) unknown) (unknown) (no (unknown) (unknown) Patient: (units (unkno wn) date) XavierjamesEileen M unknown) MR# (unknown) (no (unknown) (unknown) Pelvic congestion (units (unknown) date) (2014) unknown) (unknown) (no (unknown) (unknown) Pelvis:? Bladder is (unit s (unknown) date) underdistended which unknown) limits evaluation.? Hysterectomy.? (unknown) (no (unknown) (unknown) Penicillins (units (un known) date) [PENICILLINS] unknown) Allergy Mild Verified 04/22/22 14:44 (unknown) (no (unknown) (unknown) Plt Count (150-400) (unit s (unknown) date) X103/uL unknown) (unknown) (no (unknown) (unknown) Plt Count 245 (units ( unknown) date) (150-400) X103/uL unknown) (unknown) (no (unknown) (unknown) Point of Care (units ( unknown) date) Testing unknown) (unknown) (no (unknown) (unknown) Point of care (units ( unknown) date) testing: unknown) (unknown) (no (unknown) (unknown) Potassium (3.4-5.1) (unit s (unknown) date) mmol/L unknown) (unknown) (no (unknown) (unknown) Potassium 3.6 (units ( unknown) date) (3.4-5.1) mmol/L unknown) (unknown) (no (unknown) (unknown) Test (units (unknown) date) Results Negative unknown) (unknown) (no (unknown) (unknown) Prescriptions: (units (unknown) date) unknown) (unknown) (no (unknown) (unknown) Previous Rx's (units ( unknown) date) unknown) (unknown) (no (unknown) (unknown) Procalcitonin < (units (unknown) date) 0.03 (<0.5) ng/mL unknown) (unknown) (no (unknown) (unknown) Procalcitonin (units ( unknown) date) (<0.5) ng/mL unknown) (unknown) (no (unknown) (unknown) Procalcitonin Stat (units (unknown) date) unknown) (unknown) (no (unknown) (unknown) Prochlorperazine (units (unknown) date) (Prochlorperazine 10 unknown) Mg/2 Ml Vial) 10 mg IV NOW ONE (unknown) (no (unknown) (unknown) Prominent (units (unkn own) date) unknown) (unknown) (no (unknown) (unknown) 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 unknown) (unknown) (no (unknown) (unknown) Pulse Oximetry 97 (units (unknown) date) 11/15/22 21:09 unknown) (unknown) (no (unknown) (unknown) Pulse Oximetry 97 (units (unknown) date) unknown) (unknown) (no (unknown) (unknown) Pulse Rate 78 (units ( unknown) date) 11/15/22 21:09 unknown) (unknown) (no (unknown) (unknown) Pulse Rate 78 60 (units (unknown) date) unknown) (unknown) (no (unknown) (unknown) RBC (4.0-5.2) (units ( unknown) date) X106/uL unknown) (unknown) (no (unknown) (unknown) RBC 4.04 (4.0-5.2) (units (unknown) date) X106/uL unknown) (unknown) (no (unknown) (unknown) RDW (11.6-14.8) % (units (unknown) date) unknown) (unknown) (no (unknown) (unknown) RDW 12.7 (units (unkno wn) date) (11.6-14.8) % unknown) (unknown) (no (unknown) (unknown) RESPIRATORY: Breath (unit s (unknown) date) sounds equal unknown) bilaterally, no wheezes rales or rhonchi. (unknown) (no (unknown) (unknown) RESPONSE (units (unkno wn) date) unknown) (unknown) (no (unknown) (unknown) Radiologist's (units ( unknown) date) Impression: unknown) (unknown) (no (unknown) (unknown) Records from (units (u nknown) date) yesterday report unknown) that there is area from her hysterectomy that (unknown) (no (unknown) (unknown) Referrals: (units (unk nown) date) unknown) (unknown) (no (unknown) (unknown) Related Data (units (u nknown) date) unknown) (unknown) (no (unknown) (unknown) Respiratory Rate 16 (unit s (unknown) date) 11/15/22 21:09 unknown) (unknown) (no (unknown) (unknown) Respiratory Rate 16 (unit s (unknown) date) unknown) (unknown) (no (unknown) (unknown) Rx Instructions: (units (unknown) date) unknown) (unknown) (no (unknown) (unknown) SKIN: Warm, dry, no (unit s (unknown) date) laceration, no unknown) petechiae, no rashes or lesions. (unknown) (no (unknown) (unknown) See Rx Instructions (unit s (unknown) date) .ROUTE .COMPLEX Qty: unknown) 180 0RF (unknown) (no (unknown) (unknown) See Rx Instructions (unit s (unknown) date) .ROUTE .COMPLEX Qty: unknown) 2 0RF (unknown) (no (unknown) (unknown) See Rx Instructions (unit s (unknown) date) PO BEDTIME Qty: 45 unknown) 2RF (unknown) (no (unknown) (unknown) Signed By: (units (unk nown) date) unknown) (unknown) (no (unknown) (unknown) [facility] (units ( unknown) date) Hospital recently unknown) for an EGD which she was found to have erosive (unknown) (no (unknown) (unknown) [place] (units (unkno wn) date) unknown) (unknown) (no (unknown) (unknown) Smoking Status: (units (unknown) date) Current every day unknown) smoker (unknown) (no (unknown) (unknown) Social History (units (unknown) date) (Reviewed 05/05/22 @ unknown) 21:08 by Vargas Hill MD) (unknown) (no (unknown) (unknown) Sodium (137-145) (units (unknown) date) mmol/L unknown) (unknown) (no (unknown) (unknown) Sodium 136 L (units (u nknown) date) (137-145) mmol/L unknown) (unknown) (no (unknown) (unknown) Sodium Chloride (units (unknown) date) (Normal Saline 0.9%) unknown) 1,000 mls @ 1,000 mls/hr IV BOLUS ONE (unknown) (no (unknown) (unknown) Solid organs:? (units (unknown) date) Liver is unknown) unremarkable.? Gallbladder is absent.? No pathologic (unknown) (no (unknown) (unknown) Stated Complaint: (units (unknown) date) abdominal pain, unknown) vomiting blood (unknown) (no (unknown) (unknown) Status post (units [...] unknown) (unknown) (no (unknown) (unknown) Status post removal (unit s (unknown) date) of cervix unknown) (unknown) (no (unknown) (unknown) Status post (units (un known) date) tonsillectomy and unknown) adenoidectomy (unknown) (no (unknown) (unknown) Stop: 11/15/22 (units (unknown) date) 21:42 unknown) (unknown) (no (unknown) (unknown) Stop: 11/15/22 (units (unknown) date) 22:03 unknown) (unknown) (no (unknown) (unknown) Stop: 11/15/22 (units (unknown) date) 22:12 unknown) (unknown) (no (unknown) (unknown) Stop: 11/15/22 (units (unknown) date) 22:51 unknown) (unknown) (no (unknown) (unknown) Substance Use Type: (unit s (unknown) date) does not use unknown) (unknown) (no (unknown) (unknown) Surgical History (units (unknown) date) (Reviewed 05/05/22 @ unknown) 21:08 by Vargas Hill MD) (unknown) (no (unknown) (unknown) TAKE 2 TABLETS BY (units (unknown) date) MOUTH AT BEDTIME unknown) NEEDED FOR INSOMNIA (unknown) (no (unknown) (unknown) TECHNIQUE:? (units (un known) date) unknown) (unknown) (no (unknown) (unknown) Take 1 tab p.o. at (units (unknown) date) HS. May take 1/2 tab unknown) p.o. during the day for anxiety (unknown) (no (unknown) (unknown) Temperature 97.6 F (units (unknown) date) 11/15/22 21:09 unknown) (unknown) (no (unknown) (unknown) Temperature 97.6 F (units (unknown) date) unknown) (unknown) (no (unknown) (unknown) Time Seen by (units (u nknown) date) Provider: 11/15/22 unknown) 21:09 (unknown) (no (unknown) (unknown) Total Bilirubin (units (unknown) date) (0.2-1.3) mg/dL unknown) (unknown) (no (unknown) (unknown) Total Bilirubin 0.5 (unit s (unknown) date) (0.2-1.3) mg/dL unknown) (unknown) (no (unknown) (unknown) Total Protein (units ( unknown) date) (6.3-8.2) g/dL unknown) (unknown) (no (unknown) (unknown) Total Protein 6.4 (units (unknown) date) (6.3-8.2) g/dL unknown) (unknown) (no (unknown) (unknown) UA Complete (units (un known) date) [Urinalysis and unknown) Microscopic] Stat (unknown) (no (unknown) (unknown) UTI. No evidence of (unit s (unknown) date) sepsis she is a unknown) normal lactate normal WBC electrolytes are (unknown) (no (unknown) (unknown) Ur Culture (units (unk nown) date) Indicated? Specimen unknown) cultured (unknown) (no (unknown) (unknown) Ur Culture (units (unk nown) date) Indicated? unknown) (unknown) (no (unknown) (unknown) Ur Leukocyte (units (u nknown) date) Esterase (NEGATIVE) unknown) (unknown) (no (unknown) (unknown) Ur Leukocyte (units (u nknown) date) Esterase 1+ H unknown) (NEGATIVE) (unknown) (no (unknown) (unknown) Ur Specific [place] (unit s (unknown) date) (1.000-1.035) unknown) (unknown) (no (unknown) (unknown) Ur Specific [place] (unit s (unknown) date) 1.025 (1.000-1.035) unknown) (unknown) (no (unknown) (unknown) Ur Squamous Epith (units (unknown) date) Cells (0-5/HPF) unknown) (unknown) (no (unknown) (unknown) Ur Squamous Epith (units (unknown) date) Cells 1-5 /hpf D unknown) (0-5/HPF) (unknown) (no (unknown) (unknown) Urine Appearance (units (unknown) date) Cloudy unknown) (unknown) (no (unknown) (unknown) Urine Appearance (units (unknown) date) unknown) (unknown) (no (unknown) (unknown) Urine Bacteria (units (unknown) date) (None) unknown) (unknown) (no (unknown) (unknown) Urine Bacteria (units (unknown) date) Occasional (0-1) unknown) (None) (unknown) (no (unknown) (unknown) Urine Bilirubin (units (unknown) date) (NEGATIVE) unknown) (unknown) (no (unknown) (unknown) Urine Bilirubin (units (unknown) date) Negative (NEGATIVE) unknown) (unknown) (no (unknown) (unknown) Urine Color Red (units (unknown) date) unknown) (unknown) (no (unknown) (unknown) Urine Color (units (un known) date) unknown) (unknown) (no (unknown) (unknown) Urine Culture Stat (units (unknown) date) unknown) (unknown) (no (unknown) (unknown) Urine Dip (units (unkn own) date) unknown) (unknown) (no (unknown) (unknown) Urine Glucose (UA) (units (unknown) date) (Negative) g/dL unknown) (unknown) (no (unknown) (unknown) Urine Glucose (UA) (units (unknown) date) Negative (Negative) unknown) g/dL (unknown) (no (unknown) (unknown) Urine Ketones (units ( unknown) date) (NEGATIVE) unknown) (unknown) (no (unknown) (unknown) Urine Ketones (units ( unknown) date) Negative (NEGATIVE) unknown) (unknown) (no (unknown) (unknown) Urine Nitrate (units ( unknown) date) (Negative) unknown) (unknown) (no (unknown) (unknown) Urine Nitrate (units ( unknown) date) Negative (Negative) unknown) (unknown) (no (unknown) (unknown) Urine Occult Blood (units (unknown) date) (Negative) unknown) (unknown) (no (unknown) (unknown) Urine Occult Blood (units (unknown) date) 3+ H (Negative) unknown) (unknown) (no (unknown) (unknown) Urine Protein (units ( unknown) date) (Negative) unknown) (unknown) (no (unknown) (unknown) Urine Protein 1+ H (units (unknown) date) (Negative) unknown) (unknown) (no (unknown) (unknown) Urine RBC >100/hpf (units (unknown) date) H (0-5/HPF) unknown) (unknown) (no (unknown) (unknown) Urine RBC (0-5/HPF) (unit s (unknown) date) unknown) (unknown) (no (unknown) (unknown) Urine Specific (units (unknown) date) [place] 1.020 unknown) (unknown) (no (unknown) (unknown) Urine Urobilinogen (units (unknown) date) (0.2) E.U./dL unknown) (unknown) (no (unknown) (unknown) Urine Urobilinogen (units (unknown) date) 1.0 (0.2) E.U./dL unknown) (unknown) (no (unknown) (unknown) Urine WBC (0-5/HPF) (unit s (unknown) date) unknown) (unknown) (no (unknown) (unknown) Urine WBC 1-5/hpf (units (unknown) date) (0-5/HPF) unknown) (unknown) (no (unknown) (unknown) Urine pH (4.5-8.0) (units (unknown) date) unknown) (unknown) (no (unknown) (unknown) Urine pH 6.5 (units (u nknown) date) (4.5-8.0) unknown) (unknown) (no (unknown) (unknown) [facility], (units (unknown) date) CT, CT ABDOMEN unknown) PELVIS WITHOUT CONTRAST, 06/11/2022, 19:33.? (unknown) (no (unknown) (unknown) [facility], (units (unknown) date) MR, MR ABDOMEN MRCP, unknown) 06/12/2022, 10:50. (unknown) (no (unknown) (unknown) Vessels and lymph (units (unknown) date) nodes:? No abdominal unknown) aortic aneurysm or pathologic adenopathy (unknown) (no (unknown) (unknown) Vital Signs - 8 hr (units (unknown) date) unknown) (unknown) (no (unknown) (unknown) Vital Signs (units (un known) date) unknown) (unknown) (no (unknown) (unknown) Vital signs: (units (u nknown) date) unknown) (unknown) (no (unknown) (unknown) WBC (4.5-11.0) (units (unknown) date) X103/uL unknown) (unknown) (no (unknown) (unknown) WBC 6.4 (4.5-11.0) (units (unknown) date) X103/uL unknown) (unknown) (no (unknown) (unknown) Christi Johnson (units (unknown) date) L, DNP, [employer] unknown) [Primary Care Provider] (unknown) (no (unknown) (unknown) [Embedded Image Not (unit s (unknown) date) Available] unknown) (unknown) (no (unknown) (unknown) [From BACTRIM] (units (unknown) date) unknown) (unknown) (no (unknown) (unknown) [IODINATED CONTRAST (unit s (unknown) date) MEDIA unknown) (unknown) (no (unknown) (unknown) [METOCLOPRAMIDE] (units (unknown) date) unknown) (unknown) (no (unknown) (unknown) [SHELLFISH DERIVED] (unit s (unknown) date) unknown) (unknown) (no (unknown) (unknown) abdominal cramping. (unit s (unknown) date) She is found to have unknown) vaginal bleeding despite hysterectomy. (unknown) (no (unknown) (unknown) about 14 (units (unkno wn) date) unknown) (unknown) (no (unknown) (unknown) according to (units (u nknown) date) unknown) (unknown) (no (unknown) (unknown) actually was seen (units (unknown) date) evaluated by her unknown) primary care provider yesterday she was (unknown) (no (unknown) (unknown) adhesive [ADHESIVE] (unit s (unknown) date) Allergy Mild unknown) Verified 04/22/22 14:44 (unknown) (no (unknown) (unknown) alcohol intake (units (unknown) date) frequency: unknown) holidays/special occasions only (unknown) (no (unknown) (unknown) allergic to (units (un known) date) contrast unknown) (unknown) (no (unknown) (unknown) amoxicillin (units (un known) date) [AMOXICILLIN] unknown) Allergy Mild Verified 04/22/22 14:44 (unknown) (no (unknown) (unknown) appearance of the (units (unknown) date) renal pyramids unknown) bilaterally. (unknown) (no (unknown) (unknown) apply to single (units (unknown) date) elbow, wrist or unknown) hand; for hand includes palm/fingers/back of (unknown) (no (unknown) (unknown) by size (units (unkno wn) date) unknown) (unknown) (no (unknown) (unknown) cephalexin (units (unk nown) date) [CEPHALEXIN] Allergy unknown) Unknown Verified 04/22/22 14:44 (unknown) (no (unknown) (unknown) chills. No flank (units (unknown) date) pain. He is had unknown) multiple CTs previously. She was admitted at (unknown) (no (unknown) (unknown) ciprofloxacin (units ( unknown) date) [CIPROFLOXACIN] unknown) Allergy Unknown Verified 04/22/22 14:44 (unknown) (no (unknown) (unknown) clindamycin (units (un known) date) [CLINDAMYCIN] unknown) Allergy Unknown Verified 04/22/22 14:44 (unknown) (no (unknown) (unknown) cm.? No adrenal (units (unknown) date) nodules.? unknown) (unknown) (no (unknown) (unknown) colonic (units (unkno wn) date) unknown) (unknown) (no (unknown) (unknown) coronal and (units (un known) date) sagittal reformats unknown) were then performed.? For radiation dose (unknown) (no (unknown) (unknown) criteria. (units (unkn own) date) unknown) (unknown) (no (unknown) (unknown) diazepam 10 mg (units (unknown) date) tablet 10 mg PO QID unknown) #120 tabs 10/12/21 (unknown) (no (unknown) (unknown) diazepam 10 mg (units (unknown) date) tablet unknown) (unknown) (no (unknown) (unknown) diazepam 5 mg (units ( unknown) date) tablet (Valium) 5 mg unknown) PO TID PRN muscle spasm #10 10/19/21 (unknown) (no (unknown) (unknown) diazepam [Valium] 5 (unit s (unknown) date) mg tablet unknown) (unknown) (no (unknown) (unknown) diclofenac sodium 1 (unit s (unknown) date) % gel unknown) (unknown) (no (unknown) (unknown) diclofenac sodium 1 (unit s (unknown) date) % topical gel 2 g unknown) topical QID #100 grams 05/05/22 (unknown) (no (unknown) (unknown) dilation of (units (un known) date) unknown) (unknown) (no (unknown) (unknown) distress. (units (unkn own) date) unknown) (unknown) (no (unknown) (unknown) diverticula.? No (units (unknown) date) abscess or unknown) pathologic ascites. (unknown) (no (unknown) (unknown) doxycycline (units (un known) date) [DOXYCYCLINE] unknown) Allergy Mild Verified 04/22/22 14:44 (unknown) (no (unknown) (unknown) epinephrine 0.3 (units (unknown) date) mg/0.3 mL See Rx unknown) Instructions .Route 02/27/22 (unknown) (no (unknown) (unknown) epinephrine 0.3 (units (unknown) date) mg/0.3 mL unknown) auto-injector (unknown) (no (unknown) (unknown) evaluated on CT, (units (unknown) date) consider ultrasound unknown) correlation if needed. (unknown) (no (unknown) (unknown) following was (units ( unknown) date) used:? automated unknown) exposure control, adjustment of mA and/or kV (unknown) (no (unknown) (unknown) gastritis. She can (units (unknown) date) not have NSAIDs. She unknown) is taking oxycodone. (unknown) (no (unknown) (unknown) hand (units (unkno wn) date) unknown) (unknown) (no (unknown) (unknown) has opened. However (unit s (unknown) date) patient reports that unknown) she only started bleeding 2 days ago. (unknown) (no (unknown) (unknown) having galactorrhea (unit s (unknown) date) which started 2 days unknown) ago. She says this is persisting. She (unknown) (no (unknown) (unknown) household members: (units (unknown) date) spouse and children unknown) (unknown) (no (unknown) (unknown) hydrocodone Allergy (unit s (unknown) date) Mild rash Verified unknown) 04/22/22 14:44 (unknown) (no (unknown) (unknown) hydronephrosis.? (units (unknown) date) Nonspecific trace unknown) hyperattenuating appearance of the renal (unknown) (no (unknown) (unknown) injection, (units (unk nown) date) auto-injector unknown) .COMPLEX #2 ea (unknown) (no (unknown) (unknown) intact (units (unkno wn) date) unknown) (unknown) (no (unknown) (unknown) iodine [IODINE] (units (unknown) date) Allergy Mild unknown) Verified 04/22/22 14:44 (unknown) (no (unknown) (unknown) is metoclopramide (units (unknown) date) Phenergan and unknown) oxycodone all which increase and (unknown) (no (unknown) (unknown) lamotrigine 200 mg (units (unknown) date) tablet 200 mg PO unknown) DAILY #30 tabs 01/18/22 (unknown) (no (unknown) (unknown) lamotrigine 200 mg (units (unknown) date) tablet unknown) (unknown) (no (unknown) (unknown) latex [LATEX] (units ( unknown) date) Allergy Unknown unknown) Verified 04/22/22 14:44 (unknown) (no (unknown) (unknown) left ovary, with (units (unknown) date) decreased size of unknown) previously seen cyst, reproductive organs are (unknown) (no (unknown) (unknown) lidocaine AdvReac (units (unknown) date) Palpitation Verified unknown) 04/22/22 14:44 (unknown) (no (unknown) (unknown) lives (units (unkno wn) date) independently: Yes unknown) (unknown) (no (unknown) (unknown) marital status: (units (unknown) date) unknown) (unknown) (no (unknown) (unknown) membranes (units (unkn own) date) unknown) (unknown) (no (unknown) (unknown) metformin 500 mg (units (unknown) date) tablet 500 mg PO BID unknown) #60 tabs 02/21/22 (unknown) (no (unknown) (unknown) metformin 500 mg (units (unknown) date) tablet unknown) (unknown) (no (unknown) (unknown) metoclopramide (units (unknown) date) Allergy Mild unknown) Verified 04/22/22 14:44 (unknown) (no (unknown) (unknown) mg tablet (units (unkn own) date) (Percocet) unknown) (unknown) (no (unknown) (unknown) multiple EGDs, e (units (unknown) date) history of vaginal unknown) bleeding despite hysterectomy, presents (unknown) (no (unknown) (unknown) neuroleptic (units (un known) date) seizures, PTSD unknown) depression, erosive gastritis causing hematemesis (unknown) (no (unknown) (unknown) not well (units (unkno wn) date) unknown) (unknown) (no (unknown) (unknown) occupational (units (u nknown) date) status: employed unknown) (unknown) (no (unknown) (unknown) oxycodone 10 mg (units (unknown) date) tablet 5 mg PO Q6H unknown) PRN pain #14 tabs 05/05/22 (unknown) (no (unknown) (unknown) oxycodone 10 mg (units (unknown) date) tablet unknown) (unknown) (no (unknown) (unknown) oxycodone-acetamino (unit s (unknown) date) phen 5 mg-325 1 tab unknown) PO Q8H PRN pain #6 tabs 04/22/22 (unknown) (no (unknown) (unknown) oxycodone-acetamino (unit s (unknown) date) phen [Percocet] unknown) 5-325 mg tablet (unknown) (no (unknown) (unknown) patient size.? (units (unknown) date) unknown) (unknown) (no (unknown) (unknown) prolactin levels. (units (unknown) date) She apparently does unknown) have vaginal bleeding there is a known (unknown) (no (unknown) (unknown) pyramids is (units (un known) date) unknown) (unknown) (no (unknown) (unknown) quetiapine 100 mg (units (unknown) date) tablet 100 mg PO unknown) BEDTIME 02/27/22 02/27/22 (unknown) (no (unknown) (unknown) quetiapine 100 mg (units (unknown) date) tablet unknown) (unknown) (no (unknown) (unknown) quetiapine 25 mg (units (unknown) date) tablet See Rx unknown) Instructions PO BEDTIME #45 01/18/22 (unknown) (no (unknown) (unknown) quetiapine 25 mg (units (unknown) date) tablet unknown) (unknown) (no (unknown) (unknown) received per (units (u nknown) date) another provider. unknown) (unknown) (no (unknown) (unknown) reduction, the (units (unknown) date) unknown) (unknown) (no (unknown) (unknown) s (units (unkno wn) date) unknown) (unknown) (no (unknown) (unknown) says have blood in (units (unknown) date) her urine some unknown) leukocytes. No nitrates. Will treat for a (unknown) (no (unknown) (unknown) sertraline 100 mg (units (unknown) date) tablet 200 mg PO unknown) DAILY #60 tabs 01/18/22 (unknown) (no (unknown) (unknown) sertraline 100 mg (units (unknown) date) tablet unknown) (unknown) (no (unknown) (unknown) shellfish derived (units (unknown) date) Allergy Severe unknown) ANAPHYLAXIS Verified 04/22/22 14:44 (unknown) (no (unknown) (unknown) small opening in the (unit s (unknown) date) cuff of her unknown) hysterectomy as identified her surgeon when she (unknown) (no (unknown) (unknown) sometimes (units (unkn own) date) associated with unknown) nephrocalcinosis. (unknown) (no (unknown) (unknown) started lactating (units (unknown) date) she started vaginal unknown) bleeding again. She denies fever or (unknown) (no (unknown) (unknown) sulfamethoxazole (units (unknown) date) Allergy Mild RASH unknown) Verified 04/22/22 14:44 (unknown) (no (unknown) (unknown) tabs (units (unkno wn) date) unknown) (unknown) (no (unknown) (unknown) the biliary tree or (units (unknown) date) pancreatic duct.? unknown) Similar borderline splenomegaly, measuring (unknown) (no (unknown) (unknown) tobacco type: (units ( unknown) date) vaping unknown) (unknown) (no (unknown) (unknown) today with left (units (unknown) date) lower quadrant pain unknown) nausea vomiting in vaginal bleeding. She (unknown) (no (unknown) (unknown) tramadol 50 mg (units (unknown) date) tablet 100 mg PO BID unknown) PRN severe pain 03/22/22 (unknown) (no (unknown) (unknown) tramadol 50 mg (units (unknown) date) tablet unknown) (unknown) (no (unknown) (unknown) trazodone 100 mg (units (unknown) date) tablet See Rx unknown) Instructions .Route 11/20/21 (unknown) (no (unknown) (unknown) trazodone 100 mg (units (unknown) date) tablet unknown) (unknown) (no (unknown) (unknown) trimethoprim [From (units (unknown) date) BACTRIM] Allergy unknown) Mild RASH Verified 04/22/22 14:44 (unknown) (no (unknown) (unknown) within normal (units ( unknown) date) limits. Patient had unknown) CT does not show any abnormality. She is Result panel 351 (unknown) (no (unknown) (unknown) (no value) (units (unk nown) date) unknown) (unknown) (no (unknown) (unknown) <Electronically (units (unknown) date) signed by Stephie henson) Ayden Escalante> (unknown) (no (unknown) (unknown) (scale score 7-10) (units (unknown) date) #60 tabs unknown) (unknown) (no (unknown) (unknown) *Continue to take (units (unknown) date) medications as unknown) directed (unknown) (no (unknown) (unknown) *Follow up with (units (unknown) date) your primary care unknown) provider in 2-3 days or call [phone] (unknown) (no (unknown) (unknown) *Return to ER if (units (unknown) date) you should have unknown) increasing pain passing out heavy vaginal (unknown) (no (unknown) (unknown) *What to do: At (units (unknown) date) this time will treat unknown) you for a bladder infection. Please (unknown) (no (unknown) (unknown) *You have been (units (unknown) date) diagnosed with unknown) bladder infection (unknown) (no (unknown) (unknown) .COMPLEX #180 tabs (units (unknown) date) unknown) (unknown) (no (unknown) (unknown) 00:00 11/16/22 (units (unknown) date) unknown) (unknown) (no (unknown) (unknown) 00:30 (units (unkno wn) date) unknown) (unknown) (no (unknown) (unknown) 00:31 11/16/22 (units (unknown) date) unknown) (unknown) (no (unknown) (unknown) 00:39 (units (unkno wn) date) unknown) (unknown) (no (unknown) (unknown) 11/15/22 11/15/22 (units (unknown) date) 11/15/22 Range/Units unknown) (unknown) (no (unknown) (unknown) 11/15/22 11/15/22 (units (unknown) date) Range/Units unknown) (unknown) (no (unknown) (unknown) 11/15/22 21:20 (units (unknown) date) unknown) (unknown) (no (unknown) (unknown) 11/15/22 21:32 (units (unknown) date) unknown) (unknown) (no (unknown) (unknown) 11/15/22 22:00 (units (unknown) date) unknown) (unknown) (no (unknown) (unknown) 11/15/22 (units (unkno wn) date) unknown) (unknown) (no (unknown) (unknown) 11/16/22 0155 (units ( unknown) date) unknown) (unknown) (no (unknown) (unknown) 11/16/22 (units (unkno wn) date) unknown) (unknown) (no (unknown) (unknown) 1 tab PO Q8H PRN (units (unknown) date) (Reason: pain) Qty: unknown) 6 0RF (unknown) (no (unknown) (unknown) 10 mg PO QID Qty: (units (unknown) date) 120 2RF unknown) (unknown) (no (unknown) (unknown) 100 mg PO BEDTIME (units (unknown) date) unknown) (unknown) (no (unknown) (unknown) 100 mg PO BID PRN (units (unknown) date) (Reason: severe pain unknown) (scale score 7-10)) Qty: 60 0RF (unknown) (no (unknown) (unknown) 2 g topical QID (units (unknown) date) Qty: 100 3RF unknown) (unknown) (no (unknown) (unknown) 200 mg PO DAILY (units (unknown) date) Qty: 30 2RF unknown) (unknown) (no (unknown) (unknown) 200 mg PO DAILY (units (unknown) date) Qty: 60 2RF unknown) (unknown) (no (unknown) (unknown) 21:09 11/15/22 (units (unknown) date) unknown) (unknown) (no (unknown) (unknown) 21:14 (units (unkno wn) date) unknown) (unknown) (no (unknown) (unknown) 21:20 21:32 21:32 (units (unknown) date) unknown) (unknown) (no (unknown) (unknown) 21:30 11/15/22 (units (unknown) date) unknown) (unknown) (no (unknown) (unknown) 21:32 21:32 (units (un known) date) unknown) (unknown) (no (unknown) (unknown) 22:00 11/15/22 (units (unknown) date) unknown) (unknown) (no (unknown) (unknown) 22:01 11/15/22 (units (unknown) date) unknown) (unknown) (no (unknown) (unknown) 22:01 (units (unkno wn) date) unknown) (unknown) (no (unknown) (unknown) 22:29 11/15/22 (units (unknown) date) unknown) (unknown) (no (unknown) (unknown) 22:29 (units (unkno wn) date) unknown) (unknown) (no (unknown) (unknown) 22:30 11/15/22 (units (unknown) date) unknown) (unknown) (no (unknown) (unknown) 23:00 (units (unkno wn) date) unknown) (unknown) (no (unknown) (unknown) 23:30 11/16/22 (units (unknown) date) unknown) (unknown) (no (unknown) (unknown) 5 mg PO Q6H PRN (units (unknown) date) (Reason: pain) Qty: unknown) 14 0RF (unknown) (no (unknown) (unknown) 5 mg PO TID PRN (units (unknown) date) (Reason: muscle unknown) spasm) Qty: 10 0RF (unknown) (no (unknown) (unknown) 5 mm (units (unkno wn) date) unknown) (unknown) (no (unknown) (unknown) 500 mg PO BID Qty: (units (unknown) date) 60 0RF unknown) (unknown) (no (unknown) (unknown) 500 mg PO DAILY 3 (units (unknown) date) Days Qty: 3 0RF unknown) (unknown) (no (unknown) (unknown) : [id number] (units (u nknown) date) unknown) (unknown) (no (unknown) (unknown) ? (units (unkno wn) date) unknown) (unknown) (no (unknown) (unknown) ABDOMEN: Soft, mild (unit s (unknown) date) tenderness left unknown) quadrant guarding rebound (unknown) (no (unknown) (unknown) ALT (<35) IU/L (units (unknown) date) unknown) (unknown) (no (unknown) (unknown) ALT 16 (<35) IU/L (units (unknown) date) unknown) (unknown) (no (unknown) (unknown) AST (14-36) IU/L (units (unknown) date) unknown) (unknown) (no (unknown) (unknown) AST 16 (14-36) IU/L (unit s (unknown) date) unknown) (unknown) (no (unknown) (unknown) Activity (units (unkno wn) date) Restrictions/Additio unknown) nal Instructions: (unknown) (no (unknown) (unknown) Admin: 11/15/22 (units (unknown) date) 22:24 Dose: 1,000 unknown) mls/hr (unknown) (no (unknown) (unknown) Age/Sex: 27 / F (units (unknown) date) unknown) (unknown) (no (unknown) (unknown) Albumin (3.5-5.0) (units (unknown) date) g/dL unknown) (unknown) (no (unknown) (unknown) Albumin 3.9 (units (un known) date) (3.5-5.0) g/dL unknown) (unknown) (no (unknown) (unknown) Albumin/Globulin (units (unknown) date) Ratio (1.0-2.8) unknown) (unknown) (no (unknown) (unknown) Albumin/Globulin (units (unknown) date) Ratio 1.6 (1.0-2.8) unknown) (unknown) (no (unknown) (unknown) Alkaline (units (unkno wn) date) Phosphatase (38-126) unknown) U/L (unknown) (no (unknown) (unknown) Alkaline (units (unkno wn) date) Phosphatase 43 unknown) (38-126) U/L (unknown) (no (unknown) (unknown) Allergies (units (unkn own) date) unknown) (unknown) (no (unknown) (unknown) Allergy/AdvReac (units (unknown) date) Type Severity unknown) Reaction Status Date / Time (unknown) (no (unknown) (unknown) Apparently this is (units (unknown) date) known because she is unknown) scheduled to have it fixed in November. 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 unknown) (unknown) (no (unknown) (unknown) BUN (7-17) mg/dL (units (unknown) date) unknown) (unknown) (no (unknown) (unknown) BUN 15 (7-17) mg/dL (unit s (unknown) date) unknown) (unknown) (no (unknown) (unknown) BUN/Creatinine (units (unknown) date) Ratio (6-22) unknown) (unknown) (no (unknown) (unknown) BUN/Creatinine (units (unknown) date) Ratio 17.2 (6-22) unknown) (unknown) (no (unknown) (unknown) Baso # (Auto) (units ( unknown) date) (0-100) /uL unknown) (unknown) (no (unknown) (unknown) Baso # (Auto) 100 (units (unknown) date) (0-100) /uL unknown) (unknown) (no (unknown) (unknown) Baso % (Auto) (0-2) (unit s (unknown) date) % unknown) (unknown) (no (unknown) (unknown) Baso % (Auto) 1.9 (units (unknown) date) (0-2) % unknown) (unknown) (no (unknown) (unknown) Bedside Urine (units ( unknown) date) Bilirubin - Negative unknown) (unknown) (no (unknown) (unknown) Bedside Urine (units ( unknown) date) Glucose Negative unknown) (unknown) (no (unknown) (unknown) Bedside Urine (units ( unknown) date) Ketone - Negative unknown) (unknown) (no (unknown) (unknown) Bedside Urine (units ( unknown) date) Leukocytes + 70 unknown) (unknown) (no (unknown) (unknown) Bedside Urine (units ( unknown) date) Nitrite - Negative unknown) (unknown) (no (unknown) (unknown) Bedside Urine (units ( unknown) date) Occult Blood - unknown) Negative (unknown) (no (unknown) (unknown) Bedside Urine (units ( unknown) date) Protein + 30 unknown) (unknown) (no (unknown) (unknown) Bedside Urine (units ( unknown) date) Urobilinogen +/- 1mg unknown) (unknown) (no (unknown) (unknown) Bedside Urine pH (units (unknown) date) 6.0 unknown) (unknown) (no (unknown) (unknown) Blood Pressure (units (unknown) date) 105/58 L unknown) (unknown) (no (unknown) (unknown) Blood Pressure (units (unknown) date) 109/59 L unknown) (unknown) (no (unknown) (unknown) Blood Pressure (units (unknown) date) 117/55 L 101/52 L unknown) (unknown) (no (unknown) (unknown) Blood Pressure (units (unknown) date) 140/63 04/20/23 unknown) 21:09 (unknown) (no (unknown) (unknown) Blood Pressure (units (unknown) date) 140/63 140/63 unknown) (unknown) (no (unknown) (unknown) Blood Pressure (units (unknown) date) unknown) (unknown) (no (unknown) (unknown) Body wall:? (units (un known) date) Unremarkable unknown) (unknown) (no (unknown) (unknown) Bones:? No acute or (unit s (unknown) date) suspicious osseous unknown) finding. (unknown) (no (unknown) (unknown) Bowel and (units (unkn own) date) peritoneum:? No unknown) evidence of small bowel obstruction.? There are (unknown) (no (unknown) (unknown) Breast cancer (units ( unknown) date) unknown) (unknown) (no (unknown) (unknown) CAD (coronary (units ( unknown) date) artery disease) unknown) (unknown) (no (unknown) (unknown) CARDIOVASCULAR: (units (unknown) date) Regular rate and unknown) rhythm without murmurs, rubs or gallops. (unknown) (no (unknown) (unknown) CBC Auto Diff (units ( unknown) date) [Complete Blood unknown) Count AUTO DIFF] Stat (unknown) (no (unknown) (unknown) CMP [Comprehensive (units (unknown) date) Metabolic Panel] unknown) Stat (unknown) (no (unknown) (unknown) COMPARISON:? [facility] (unit s (unknown) date) [facility], MR, unknown) MR [facility], 06/12/2022, 10:50.? (unknown) (no (unknown) (unknown) CT abdomen pelvis (units (unknown) date) wo con Stat unknown) (unknown) (no (unknown) (unknown) CT scan - (units (unkn own) date) abdomen/pelvis: unknown) (unknown) (no (unknown) (unknown) Calcium (8.4-10.2) (units (unknown) date) mg/dL unknown) (unknown) (no (unknown) (unknown) Calcium 8.3 L (units ( unknown) date) (8.4-10.2) mg/dL unknown) (unknown) (no (unknown) (unknown) Carbon Dioxide (units (unknown) date) (22-32) mmol/L unknown) (unknown) (no (unknown) (unknown) Carbon Dioxide 27 (units (unknown) date) (22-32) mmol/L unknown) (unknown) (no (unknown) (unknown) Chief Complaint: (units (unknown) date) Abdominal Pain unknown) (unknown) (no (unknown) (unknown) Chloride (98-107) (units (unknown) date) mmol/L unknown) (unknown) (no (unknown) (unknown) Chloride 103 (units (u nknown) date) (98-107) mmol/L unknown) (unknown) (no (unknown) (unknown) Clinical (units (unkno wn) date) Impression: unknown) (unknown) (no (unknown) (unknown) Consider CT IVP and (unit s (unknown) date) possible cystoscopy unknown) for further workup of hematuria.? (unknown) (no (unknown) (unknown) Consider ultrasound (unit s (unknown) date) correlation if unknown) needed to further workup pelvic organs.? (unknown) (no (unknown) (unknown) Contract void and (units (unknown) date) provider will offer unknown) no further tramadol refills if tramadol (unknown) (no (unknown) (unknown) Course (units (unkno wn) date) unknown) (unknown) (no (unknown) (unknown) Creatinine (units (unk nown) date) (0.52-1.04) mg/dL unknown) (unknown) (no (unknown) (unknown) Creatinine 0.87 (units (unknown) date) (0.52-1.04) mg/dL unknown) (unknown) (no (unknown) (unknown) : 1995 (units (unknown) date) Acct:[id number] unknown) (unknown) (no (unknown) (unknown) Date of Service: (units (unknown) date) 11/15/22 unknown) (unknown) (no (unknown) (unknown) Departure (units (unkn own) date) unknown) (unknown) (no (unknown) (unknown) Dictated by: Alan (units (unknown) date) Raphael Castaneda on unknown) 11/15/2022 at 22:28 ?? (unknown) (no (unknown) (unknown) Diphenhydramine HCl (unit s (unknown) date) (Diphenhydramine 50 unknown) Mg/Ml Vial) 25 mg IV NOW ONE (unknown) (no (unknown) (unknown) Discharge Plan (units (unknown) date) unknown) (unknown) (no (unknown) (unknown) Discontinued (units (u nknown) date) Medications unknown) (unknown) (no (unknown) (unknown) Documented By: BS (units (unknown) date) unknown) (unknown) (no (unknown) (unknown) Documented By: SPF (units (unknown) date) unknown) (unknown) (no (unknown) (unknown) Dose Instruction: (units (unknown) date) unknown) (unknown) (no (unknown) (unknown) ED Orders (units (unkn own) date) unknown) (unknown) (no (unknown) (unknown) ER Physician: (units ( unknown) date) Stephie Escalante D.O. unknown) (unknown) (no (unknown) (unknown) EXTREMITIES: Normal (unit s (unknown) date) range of motion, no unknown) clubbing or edema. Neurovascularly (unknown) (no (unknown) (unknown) Emergency Report (units (unknown) date) unknown) (unknown) (no (unknown) (unknown) Endometriosis (units ( unknown) date) unknown) (unknown) (no (unknown) (unknown) Eos # (Auto) (units (u nknown) date) (0-450) /uL unknown) (unknown) (no (unknown) (unknown) Eos # (Auto) 100 (units (unknown) date) (0-450) /uL unknown) (unknown) (no (unknown) (unknown) Eos % (Auto) (2-4) (units (unknown) date) % unknown) (unknown) (no (unknown) (unknown) Eos % (Auto) 2.0 (units (unknown) date) (2-4) % unknown) (unknown) (no (unknown) (unknown) Esterase (units (unkno wn) date) unknown) (unknown) (no (unknown) (unknown) Estimated GFR > 60 (units (unknown) date) (>60) mL/min unknown) (unknown) (no (unknown) (unknown) Estimated GFR (>60) (unit s (unknown) date) mL/min unknown) (unknown) (no (unknown) (unknown) Exam (units (unkno wn) date) unknown) (unknown) (no (unknown) (unknown) FINDINGS:? (units (unk nown) date) unknown) (unknown) (no (unknown) (unknown) Family History (units (unknown) date) (Reviewed 05/05/22 @ unknown) 21:08 by Vargas Hill MD) (unknown) (no (unknown) (unknown) GENERAL: Alert (units (unknown) date) pleasant unknown) well-appearing 27-year-old female and in no acute (unknown) (no (unknown) (unknown) : No CVA (units (unk nown) date) tenderness unknown) (unknown) (no (unknown) (unknown) General (units (unkno wn) date) unknown) (unknown) (no (unknown) (unknown) Globulin (1.7-4.1) (units (unknown) date) g/dL unknown) (unknown) (no (unknown) (unknown) Globulin 2.5 (units (u nknown) date) (1.7-4.1) g/dL unknown) (unknown) (no (unknown) (unknown) Glucose (70-100) (units (unknown) date) mg/dL unknown) (unknown) (no (unknown) (unknown) Glucose 96 (70-100) (unit s (unknown) date) mg/dL unknown) (unknown) (no (unknown) (unknown) Grandmother (units (un known) date) Ovarian unknown) cancer (unknown) (no (unknown) (unknown) H/O unilateral (units (unknown) date) oophorectomy unknown) () (unknown) (no (unknown) (unknown) H/O: hysterectomy (units (unknown) date) unknown) (unknown) (no (unknown) (unknown) HEENT: Head (units (un known) date) atraumatic,EOMI, unknown) pupils reactive, face symmetric, moist mucous (unknown) (no (unknown) (unknown) HPI - Abdominal (units (unknown) date) Pain unknown) (unknown) (no (unknown) (unknown) HPI narrative: (units (unknown) date) unknown) (unknown) (no (unknown) (unknown) Hct (36-46) % (units ( unknown) date) unknown) (unknown) (no (unknown) (unknown) Hct 35.8 L (36-46) (units (unknown) date) % unknown) (unknown) (no (unknown) (unknown) Hematuria (units (unkn own) date) unknown) (unknown) (no (unknown) (unknown) Hgb (12.0-16.0) (units (unknown) date) g/dL unknown) (unknown) (no (unknown) (unknown) Hgb 12.6 (units (unkno wn) date) (12.0-16.0) g/dL unknown) (unknown) (no (unknown) (unknown) History of Present (units (unknown) date) Illness unknown) (unknown) (no (unknown) (unknown) History of ureter (units (unknown) date) stent unknown) (unknown) (no (unknown) (unknown) Hold Instructions: (units (unknown) date) NEEDS TO SEE unknown) NEUROLOGY (unknown) (no (unknown) (unknown) Hold Instructions: (units (unknown) date) SEEN BY PSYCHIATRY unknown) (unknown) (no (unknown) (unknown) Home Medications (units (unknown) date) unknown) (unknown) (no (unknown) (unknown) Hydromorphone HCl (units (unknown) date) (Hydromorphone 1 Mg unknown) Inj) 1 mg IV NOW ONE (unknown) (no (unknown) (unknown) Hyperlipidemia (units (unknown) date) unknown) (unknown) (no (unknown) (unknown) Hypertension (units (u nknown) date) unknown) (unknown) (no (unknown) (unknown) Hysterectomy. (units ( unknown) date) unknown) (unknown) (no (unknown) (unknown) IMPRESSION:? No (units (unknown) date) acute abdominal unknown) pelvic pathology.? No calcified renal stones.? (unknown) (no (unknown) (unknown) INDICATIONS:? Left (units (unknown) date) lower quadrant pain, unknown) hematuria (unknown) (no (unknown) (unknown) INJECT (units (unkno wn) date) INTRAMUSCULARLY unknown) EVERY 20 MINUTES NEEDED FOR ANAPHYLAXIS UNTIL (unknown) (no (unknown) (unknown) IV DYE] (units (unkno wn) date) unknown) (unknown) (no (unknown) (unknown) Image quality:? (units (unknown) date) Good unknown) (unknown) (no (unknown) (unknown) Imaging Data (units (u nknown) date) unknown) (unknown) (no (unknown) (unknown) Initial Vital Signs (unit s (unknown) date) unknown) (unknown) (no (unknown) (unknown) Initial Vital (units ( unknown) date) Signs: unknown) (unknown) (no (unknown) (unknown) Instructions: DI (units (unknown) date) for Urinary Tract unknown) Infection (UTI) (unknown) (no (unknown) (unknown) Iodinated Contrast (units (unknown) date) Media Allergy unknown) Unknown Verified 04/22/22 14:44 (unknown) (no (unknown) (unknown) [facility] (units (unknown) date) [address] unknown) [place] [address] (unknown) (no (unknown) (unknown) Lab Data (units (unkno wn) date) unknown) (unknown) (no (unknown) (unknown) Lab Results (units (un known) date) unknown) (unknown) (no (unknown) (unknown) Labs: (units (unkno wn) date) unknown) (unknown) (no (unknown) (unknown) Lactate (0.7-2.1) (units (unknown) date) mmol/L unknown) (unknown) (no (unknown) (unknown) Lactate (Lactic (units (unknown) date) Acid) Stat unknown) (unknown) (no (unknown) (unknown) Lactate 1.2 (units (un known) date) (0.7-2.1) mmol/L unknown) (unknown) (no (unknown) (unknown) Last Admin: (units (un known) date) 11/15/22 22:00 Dose: unknown) 10 mg (unknown) (no (unknown) (unknown) Last Admin: (units (un known) date) 11/15/22 22:01 Dose: unknown) 40 mg (unknown) (no (unknown) (unknown) Last Admin: (units (un known) date) 11/15/22 22:21 Dose: unknown) Not Given (unknown) (no (unknown) (unknown) Last Admin: (units (un known) date) 11/15/22 23:01 Dose: unknown) 1 mg (unknown) (no (unknown) (unknown) Last Infusion: (units (unknown) date) 11/15/22 23:34 Dose: unknown) 0 mls/hr (unknown) (no (unknown) (unknown) Levaquin 500 mg (units (unknown) date) once a day for 3 unknown) days--> [facility] (unknown) (no (unknown) (unknown) Limit as possible. (units (unknown) date) Prescribed per 03/21 unknown) signed pain management contract. (unknown) (no (unknown) (unknown) Lipase (23-300) U/L (unit s (unknown) date) unknown) (unknown) (no (unknown) (unknown) Lipase 86 (23-300) (units (unknown) date) U/L unknown) (unknown) (no (unknown) (unknown) Lipase Stat (units (un known) date) unknown) (unknown) (no (unknown) (unknown) Lower chest:? (units ( unknown) date) Unremarkable.? No unknown) hiatal hernia. (unknown) (no (unknown) (unknown) Lymph # (Auto) (units (unknown) date) (2952-0587) /uL unknown) (unknown) (no (unknown) (unknown) Lymph # (Auto) 2200 (unit s (unknown) date) (6008-9663) /uL unknown) (unknown) (no (unknown) (unknown) Lymph % (Auto) (units (unknown) date) (25-40) % unknown) (unknown) (no (unknown) (unknown) Lymph % (Auto) 34.4 (unit s (unknown) date) (25-40) % unknown) (unknown) (no (unknown) (unknown) MCH (26-34) PG (units (unknown) date) unknown) (unknown) (no (unknown) (unknown) MCH 31.2 (26-34) PG (unit s (unknown) date) unknown) (unknown) (no (unknown) (unknown) MCHC (30-36) % (units (unknown) date) unknown) (unknown) (no (unknown) (unknown) MCHC 35.3 (30-36) % (unit s (unknown) date) unknown) (unknown) (no (unknown) (unknown) MCV (80-100) fL (units (unknown) date) unknown) (unknown) (no (unknown) (unknown) MCV 88.6 (80-100) (units (unknown) date) fL unknown) (unknown) (no (unknown) (unknown) MDM - Abdominal (units (unknown) date) Pain unknown) (unknown) (no (unknown) (unknown) MDM Narrative (units ( unknown) date) unknown) (unknown) (no (unknown) (unknown) Major depressive (units (unknown) date) disorder unknown) (unknown) (no (unknown) (unknown) Medical History (units (unknown) date) (Reviewed 05/05/22 @ unknown) 21:08 by Vargas Hill MD) (unknown) (no (unknown) (unknown) Medical decision (units (unknown) date) making narrative: unknown) (unknown) (no (unknown) (unknown) Medication (units (unk nown) date) Instructions unknown) Recorded Confirmed (unknown) (no (unknown) (unknown) Medication (units (unk nown) date) Instructions unknown) Recorded (unknown) (no (unknown) (unknown) Methylprednisolone (units (unknown) date) (Methylprednisolone unknown) 125 Mg/2 Ml Vial) 125 mg IV NOW ONE (unknown) (no (unknown) (unknown) [place] # (Auto) (units ( unknown) date) (0-900) /uL unknown) (unknown) (no (unknown) (unknown) [place] # (Auto) 400 (units (unknown) date) (0-900) /uL unknown) (unknown) (no (unknown) (unknown) [place] % (Auto) (units ( unknown) date) (3-14) % unknown) (unknown) (no (unknown) (unknown) [place] % (Auto) 6.9 (units (unknown) date) (3-14) % unknown) (unknown) (no (unknown) (unknown) Morbid obesity (units (unknown) date) unknown) (unknown) (no (unknown) (unknown) 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 (unknown) (no (unknown) (unknown) Nephrolithiasis (units (unknown) date) (-2018) unknown) (unknown) (no (unknown) (unknown) Neut # (Auto) (units ( unknown) date) (6969-8437) /uL unknown) (unknown) (no (unknown) (unknown) Neut # (Auto) 3500 (units (unknown) date) (9723-3700) /uL unknown) (unknown) (no (unknown) (unknown) Neut % (Auto) (units ( unknown) date) (50-75) % unknown) (unknown) (no (unknown) (unknown) Neut % (Auto) 54.8 (units (unknown) date) (50-75) % unknown) (unknown) (no (unknown) (unknown) New (units (unkno wn) date) unknown) (unknown) (no (unknown) (unknown) No Action (units (unkn own) date) unknown) (unknown) (no (unknown) (unknown) No hydronephrosis.? (unit s (unknown) date) No calcified unknown) stones.? As before, minimally hyperattenuating (unknown) (no (unknown) (unknown) No (units (unkno wn) date) unknown) (unknown) (no (unknown) (unknown) Noncontrast 5 mm (units (unknown) date) thick sections unknown) acquired from the diaphragms to the symphysis.? (unknown) (no (unknown) (unknown) Ordered: (units (unkno wn) date) unknown) (unknown) (no (unknown) (unknown) Orders (units (unkno wn) date) unknown) (unknown) (no (unknown) (unknown) Ovarian cyst (units (u nknown) date) unknown) (unknown) (no (unknown) (unknown) Oxygen Delivery (units (unknown) date) Method Room Air unknown) 11/15/22 21:09 (unknown) (no (unknown) (unknown) Oxygen Delivery (units (unknown) date) Method Room Air unknown) (unknown) (no (unknown) (unknown) Oxygen Delivery (units (unknown) date) Method unknown) (unknown) (no (unknown) (unknown) PCOS (polycystic (units (unknown) date) ovarian syndrome) unknown) (unknown) (no (unknown) (unknown) PROCEDURE:? CT (units (unknown) date) ABDOMEN PELVIS WO unknown) CON (unknown) (no (unknown) (unknown) Pantoprazole Sodium (unit s (unknown) date) (Pantoprazole 40 Mg unknown) Vial) 40 mg IV NOW ONE (unknown) (no (unknown) (unknown) Patellar (units (unkno wn) date) dislocation unknown) (unknown) (no (unknown) (unknown) Patient 27-year-old (unit s (unknown) date) female with multiple unknown) complicated medical issues. Parents (unknown) (no (unknown) (unknown) Patient 27-year-old (unit s (unknown) date) female with unknown) significant history of anxiety, psychogenic (unknown) (no (unknown) (unknown) Patient (units (unkno wn) date) Disposition: Home unknown) (unknown) (no (unknown) (unknown) Patient History (units (unknown) date) unknown) (unknown) (no (unknown) (unknown) Patient: (units (unkno wn) date) Eileen Jorgensen unknown) MR# (unknown) (no (unknown) (unknown) Pelvic congestion (units (unknown) date) (2013) unknown) (unknown) (no (unknown) (unknown) Pelvis:? Bladder is (unit s (unknown) date) underdistended which unknown) limits evaluation.? Hysterectomy.? (unknown) (no (unknown) (unknown) Penicillins (units (un known) date) [PENICILLINS] unknown) Allergy Mild Verified 04/22/22 14:44 (unknown) (no (unknown) (unknown) Plt Count (150-400) (unit s (unknown) date) X103/uL unknown) (unknown) (no (unknown) (unknown) Plt Count 245 (units ( unknown) date) (150-400) X103/uL unknown) (unknown) (no (unknown) (unknown) Point of Care (units ( unknown) date) Testing unknown) (unknown) (no (unknown) (unknown) Point of care (units ( unknown) date) testing: unknown) (unknown) (no (unknown) (unknown) Potassium (3.4-5.1) (unit s (unknown) date) mmol/L unknown) (unknown) (no (unknown) (unknown) Potassium 3.6 (units ( unknown) date) (3.4-5.1) mmol/L unknown) (unknown) (no (unknown) (unknown) Test (units (unknown) date) Results Negative unknown) (unknown) (no (unknown) (unknown) Prescriptions: (units (unknown) date) unknown) (unknown) (no (unknown) (unknown) Previous Rx's (units ( unknown) date) unknown) (unknown) (no (unknown) (unknown) Procalcitonin < (units (unknown) date) 0.03 (<0.5) ng/mL unknown) (unknown) (no (unknown) (unknown) Procalcitonin (units ( unknown) date) (<0.5) ng/mL unknown) (unknown) (no (unknown) (unknown) Procalcitonin Stat (units (unknown) date) unknown) (unknown) (no (unknown) (unknown) Prochlorperazine (units (unknown) date) (Prochlorperazine 10 unknown) Mg/2 Ml Vial) 10 mg IV NOW ONE (unknown) (no (unknown) (unknown) Prominent (units (unkn own) date) unknown) (unknown) (no (unknown) (unknown) 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 unknown) (unknown) (no (unknown) (unknown) Pulse Oximetry 100 (units (unknown) date) 100 unknown) (unknown) (no (unknown) (unknown) Pulse Oximetry 97 (units (unknown) date) 11/15/22 21:09 unknown) (unknown) (no (unknown) (unknown) Pulse Oximetry 97 (units (unknown) date) 97 100 unknown) (unknown) (no (unknown) (unknown) Pulse Oximetry 97 (units (unknown) date) 97 unknown) (unknown) (no (unknown) (unknown) Pulse Oximetry 97 (units (unknown) date) 98 98 unknown) (unknown) (no (unknown) (unknown) Pulse Oximetry 97 (units (unknown) date) unknown) (unknown) (no (unknown) (unknown) Pulse Rate 58 L 58 (units (unknown) date) L 73 unknown) (unknown) (no (unknown) (unknown) Pulse Rate 60 (units ( unknown) date) unknown) (unknown) (no (unknown) (unknown) Pulse Rate 62 70 (units (unknown) date) unknown) (unknown) (no (unknown) (unknown) Pulse Rate 68 63 62 (unit s (unknown) date) unknown) (unknown) (no (unknown) (unknown) Pulse Rate 69 69 (units (unknown) date) unknown) (unknown) (no (unknown) (unknown) Pulse Rate 78 (units ( unknown) date) 11/15/22 21:09 unknown) (unknown) (no (unknown) (unknown) Pulse Rate 78 60 74 (unit s (unknown) date) unknown) (unknown) (no (unknown) (unknown) RBC (4.0-5.2) (units ( unknown) date) X106/uL unknown) (unknown) (no (unknown) (unknown) RBC 4.04 (4.0-5.2) (units (unknown) date) X106/uL unknown) (unknown) (no (unknown) (unknown) RDW (11.6-14.8) % (units (unknown) date) unknown) (unknown) (no (unknown) (unknown) RDW 12.7 (units (unkno wn) date) (11.6-14.8) % unknown) (unknown) (no (unknown) (unknown) RESPIRATORY: Breath (unit s (unknown) date) sounds equal unknown) bilaterally, no wheezes rales or rhonchi. (unknown) (no (unknown) (unknown) RESPONSE (units (unkno wn) date) unknown) (unknown) (no (unknown) (unknown) Radiologist's (units ( unknown) date) Impression: unknown) (unknown) (no (unknown) (unknown) Records from (units (u nknown) date) yesterday report unknown) that there is area from her hysterectomy that (unknown) (no (unknown) (unknown) Referrals: (units (unk nown) date) unknown) (unknown) (no (unknown) (unknown) Related Data (units (u nknown) date) unknown) (unknown) (no (unknown) (unknown) Respiratory Rate 16 (unit s (unknown) date) 11/15/22 21:09 unknown) (unknown) (no (unknown) (unknown) Respiratory Rate 16 (unit s (unknown) date) unknown) (unknown) (no (unknown) (unknown) Respiratory Rate (units (unknown) date) unknown) (unknown) (no (unknown) (unknown) Rx Instructions: (units (unknown) date) unknown) (unknown) (no (unknown) (unknown) SKIN: Warm, dry, no (unit s (unknown) date) laceration, no unknown) petechiae, no rashes or lesions. (unknown) (no (unknown) (unknown) See Rx Instructions (unit s (unknown) date) .ROUTE .COMPLEX Qty: unknown) 180 0RF (unknown) (no (unknown) (unknown) See Rx Instructions (unit s (unknown) date) .ROUTE .COMPLEX Qty: unknown) 2 0RF (unknown) (no (unknown) (unknown) See Rx Instructions (unit s (unknown) date) PO BEDTIME Qty: 45 unknown) 2RF (unknown) (no (unknown) (unknown) Signed By: (units (unk nown) date) unknown) (unknown) (no (unknown) (unknown) [facility] (units ( unknown) date) Hospital recently unknown) for an EGD which she was found to have erosive (unknown) (no (unknown) (unknown) [place] (units (unkno wn) date) unknown) (unknown) (no (unknown) (unknown) Smoking Status: (units (unknown) date) Current every day unknown) smoker (unknown) (no (unknown) (unknown) Social History (units (unknown) date) (Reviewed 05/05/22 @ unknown) 21:08 by Vargas Hill MD) (unknown) (no (unknown) (unknown) Sodium (137-145) (units (unknown) date) mmol/L unknown) (unknown) (no (unknown) (unknown) Sodium 136 L (units (u nknown) date) (137-145) mmol/L unknown) (unknown) (no (unknown) (unknown) Sodium Chloride (units (unknown) date) (Normal Saline 0.9%) unknown) 1,000 mls @ 1,000 mls/hr IV BOLUS ONE (unknown) (no (unknown) (unknown) Solid organs:? (units (unknown) date) Liver is unknown) unremarkable.? Gallbladder is absent.? No pathologic (unknown) (no (unknown) (unknown) Stand Alone Forms: (units (unknown) date) Patient Portal/API unknown) (unknown) (no (unknown) (unknown) Stated Complaint: (units (unknown) date) abdominal pain, unknown) vomiting blood (unknown) (no (unknown) (unknown) Status post (units [...] unknown) (unknown) (no (unknown) (unknown) Status post removal (unit s (unknown) date) of cervix unknown) (unknown) (no (unknown) (unknown) Status post (units (un known) date) tonsillectomy and unknown) adenoidectomy (unknown) (no (unknown) (unknown) Stop: 11/15/22 (units (unknown) date) 21:42 unknown) (unknown) (no (unknown) (unknown) Stop: 11/15/22 (units (unknown) date) 22:03 unknown) (unknown) (no (unknown) (unknown) Stop: 11/15/22 (units (unknown) date) 22:12 unknown) (unknown) (no (unknown) (unknown) Stop: 11/15/22 (units (unknown) date) 22:51 unknown) (unknown) (no (unknown) (unknown) Substance Use Type: (unit s (unknown) date) does not use unknown) (unknown) (no (unknown) (unknown) Surgical History (units (unknown) date) (Reviewed 05/05/22 @ unknown) 21:08 by Vargas Hill MD) (unknown) (no (unknown) (unknown) TAKE 2 TABLETS BY (units (unknown) date) MOUTH AT BEDTIME unknown) NEEDED FOR INSOMNIA (unknown) (no (unknown) (unknown) TECHNIQUE:? (units (un known) date) unknown) (unknown) (no (unknown) (unknown) Take 1 tab p.o. at (units (unknown) date) HS. May take 1/2 tab unknown) p.o. during the day for anxiety (unknown) (no (unknown) (unknown) Temperature 97.6 F (units (unknown) date) 11/15/22 21:09 unknown) (unknown) (no (unknown) (unknown) Temperature 97.6 F (units (unknown) date) unknown) (unknown) (no (unknown) (unknown) Temperature 97.8 F (units (unknown) date) unknown) (unknown) (no (unknown) (unknown) Temperature (units (un known) date) unknown) (unknown) (no (unknown) (unknown) Time Seen by (units (u nknown) date) Provider: 11/15/22 unknown) 21:09 (unknown) (no (unknown) (unknown) Total Bilirubin (units (unknown) date) (0.2-1.3) mg/dL unknown) (unknown) (no (unknown) (unknown) Total Bilirubin 0.5 (unit s (unknown) date) (0.2-1.3) mg/dL unknown) (unknown) (no (unknown) (unknown) Total Protein (units ( unknown) date) (6.3-8.2) g/dL unknown) (unknown) (no (unknown) (unknown) Total Protein 6.4 (units (unknown) date) (6.3-8.2) g/dL unknown) (unknown) (no (unknown) (unknown) UA Complete (units (un known) date) [Urinalysis and unknown) Microscopic] Stat (unknown) (no (unknown) (unknown) UTI (urinary tract (units (unknown) date) infection) unknown) (unknown) (no (unknown) (unknown) UTI. No evidence of (unit s (unknown) date) sepsis she is a unknown) normal lactate normal WBC electrolytes are (unknown) (no (unknown) (unknown) Ur Culture (units (unk nown) date) Indicated? Specimen unknown) cultured (unknown) (no (unknown) (unknown) Ur Culture (units (unk nown) date) Indicated? unknown) (unknown) (no (unknown) (unknown) Ur Leukocyte (units (u nknown) date) Esterase (NEGATIVE) unknown) (unknown) (no (unknown) (unknown) Ur Leukocyte (units (u nknown) date) Esterase 1+ H unknown) (NEGATIVE) (unknown) (no (unknown) (unknown) Ur Specific [place] (unit s (unknown) date) (1.000-1.035) unknown) (unknown) (no (unknown) (unknown) Ur Specific [place] (unit s (unknown) date) 1.025 (1.000-1.035) unknown) (unknown) (no (unknown) (unknown) Ur Squamous Epith (units (unknown) date) Cells (0-5/HPF) unknown) (unknown) (no (unknown) (unknown) Ur Squamous Epith (units (unknown) date) Cells 1-5 /hpf D unknown) (0-5/HPF) (unknown) (no (unknown) (unknown) Urine Appearance (units (unknown) date) Cloudy unknown) (unknown) (no (unknown) (unknown) Urine Appearance (units (unknown) date) unknown) (unknown) (no (unknown) (unknown) Urine Bacteria (units (unknown) date) (None) unknown) (unknown) (no (unknown) (unknown) Urine Bacteria (units (unknown) date) Occasional (0-1) unknown) (None) (unknown) (no (unknown) (unknown) Urine Bilirubin (units (unknown) date) (NEGATIVE) unknown) (unknown) (no (unknown) (unknown) Urine Bilirubin (units (unknown) date) Negative (NEGATIVE) unknown) (unknown) (no (unknown) (unknown) Urine Color Red (units (unknown) date) unknown) (unknown) (no (unknown) (unknown) Urine Color (units (un known) date) unknown) (unknown) (no (unknown) (unknown) Urine Culture Stat (units (unknown) date) unknown) (unknown) (no (unknown) (unknown) Urine Dip (units (unkn own) date) unknown) (unknown) (no (unknown) (unknown) Urine Glucose (UA) (units (unknown) date) (Negative) g/dL unknown) (unknown) (no (unknown) (unknown) Urine Glucose (UA) (units (unknown) date) Negative (Negative) unknown) g/dL (unknown) (no (unknown) (unknown) Urine Ketones (units ( unknown) date) (NEGATIVE) unknown) (unknown) (no (unknown) (unknown) Urine Ketones (units ( unknown) date) Negative (NEGATIVE) unknown) (unknown) (no (unknown) (unknown) Urine Nitrate (units ( unknown) date) (Negative) unknown) (unknown) (no (unknown) (unknown) Urine Nitrate (units ( unknown) date) Negative (Negative) unknown) (unknown) (no (unknown) (unknown) Urine Occult Blood (units (unknown) date) (Negative) unknown) (unknown) (no (unknown) (unknown) Urine Occult Blood (units (unknown) date) 3+ H (Negative) unknown) (unknown) (no (unknown) (unknown) Urine Protein (units ( unknown) date) (Negative) unknown) (unknown) (no (unknown) (unknown) Urine Protein 1+ H (units (unknown) date) (Negative) unknown) (unknown) (no (unknown) (unknown) Urine RBC >100/hpf (units (unknown) date) H (0-5/HPF) unknown) (unknown) (no (unknown) (unknown) Urine RBC (0-5/HPF) (unit s (unknown) date) unknown) (unknown) (no (unknown) (unknown) Urine Specific (units (unknown) date) [place] 1.020 unknown) (unknown) (no (unknown) (unknown) Urine Urobilinogen (units (unknown) date) (0.2) E.U./dL unknown) (unknown) (no (unknown) (unknown) Urine Urobilinogen (units (unknown) date) 1.0 (0.2) E.U./dL unknown) (unknown) (no (unknown) (unknown) Urine WBC (0-5/HPF) (unit s (unknown) date) unknown) (unknown) (no (unknown) (unknown) Urine WBC 1-5/hpf (units (unknown) date) (0-5/HPF) unknown) (unknown) (no (unknown) (unknown) Urine pH (4.5-8.0) (units (unknown) date) unknown) (unknown) (no (unknown) (unknown) Urine pH 6.5 (units (u nknown) date) (4.5-8.0) unknown) (unknown) (no (unknown) (unknown) [facility], (units (unknown) date) CT, CT ABDOMEN unknown) PELVIS WITHOUT CONTRAST, 06/11/2022, 19:33.? (unknown) (no (unknown) (unknown) [facility], (units (unknown) date) MR, MR ABDOMEN MRCP, unknown) 06/12/2022, 10:50. (unknown) (no (unknown) (unknown) Vessels and lymph (units (unknown) date) nodes:? No abdominal unknown) aortic aneurysm or pathologic adenopathy (unknown) (no (unknown) (unknown) Vital Signs - 8 hr (units (unknown) date) unknown) (unknown) (no (unknown) (unknown) Vital Signs (units (un known) date) unknown) (unknown) (no (unknown) (unknown) Vital signs: (units (u nknown) date) unknown) (unknown) (no (unknown) (unknown) WBC (4.5-11.0) (units (unknown) date) X103/uL unknown) (unknown) (no (unknown) (unknown) WBC 6.4 (4.5-11.0) (units (unknown) date) X103/uL unknown) (unknown) (no (unknown) (unknown) Christi Johnson (units (unknown) date) L, DNP, [employer] unknown) [Primary Care Provider] (unknown) (no (unknown) (unknown) [Embedded Image Not (unit s (unknown) date) Available] unknown) (unknown) (no (unknown) (unknown) [From BACTRIM] (units (unknown) date) unknown) (unknown) (no (unknown) (unknown) [IODINATED CONTRAST (unit s (unknown) date) MEDIA unknown) (unknown) (no (unknown) (unknown) [METOCLOPRAMIDE] (units (unknown) date) unknown) (unknown) (no (unknown) (unknown) [SHELLFISH DERIVED] (unit s (unknown) date) unknown) (unknown) (no (unknown) (unknown) abdominal cramping. (unit s (unknown) date) She is found to have unknown) vaginal bleeding despite hysterectomy. (unknown) (no (unknown) (unknown) about 14 (units (unkno wn) date) unknown) (unknown) (no (unknown) (unknown) according to (units (u nknown) date) unknown) (unknown) (no (unknown) (unknown) actually was seen (units (unknown) date) evaluated by her unknown) primary care provider yesterday she was (unknown) (no (unknown) (unknown) adhesive [ADHESIVE] (unit s (unknown) date) Allergy Mild unknown) Verified 04/22/22 14:44 (unknown) (no (unknown) (unknown) alcohol intake (units (unknown) date) frequency: unknown) holidays/special occasions only (unknown) (no (unknown) (unknown) allergic to (units (un known) date) contrast, CT was unknown) done without contrast. No cause of her left lower (unknown) (no (unknown) (unknown) amoxicillin (units (un known) date) [AMOXICILLIN] unknown) Allergy Mild Verified 04/22/22 14:44 (unknown) (no (unknown) (unknown) appearance of the (units (unknown) date) renal pyramids unknown) bilaterally. (unknown) (no (unknown) (unknown) apply to single (units (unknown) date) elbow, wrist or unknown) hand; for hand includes palm/fingers/back of (unknown) (no (unknown) (unknown) being worked up by (units (unknown) date) the patient she does unknown) have some galactorrhea possibly due to (unknown) (no (unknown) (unknown) bleeding more than (units (unknown) date) 2 super pads in 1 unknown) hour or any new, worsening or concerning (unknown) (no (unknown) (unknown) by size (units (unkno wn) date) unknown) (unknown) (no (unknown) (unknown) cephalexin (units (unk nown) date) [CEPHALEXIN] Allergy unknown) Unknown Verified 04/22/22 14:44 (unknown) (no (unknown) (unknown) chills. No flank (units (unknown) date) pain. He is had unknown) multiple CTs previously. She was admitted at (unknown) (no (unknown) (unknown) ciprofloxacin (units ( unknown) date) [CIPROFLOXACIN] unknown) Allergy Unknown Verified 04/22/22 14:44 (unknown) (no (unknown) (unknown) clindamycin (units (un known) date) [CLINDAMYCIN] unknown) Allergy Unknown Verified 04/22/22 14:44 (unknown) (no (unknown) (unknown) cm.? No adrenal (units (unknown) date) nodules.? unknown) (unknown) (no (unknown) (unknown) colonic (units (unkno wn) date) unknown) (unknown) (no (unknown) (unknown) coronal and (units (un known) date) sagittal reformats unknown) were then performed.? For radiation dose (unknown) (no (unknown) (unknown) criteria. (units (unkn own) date) unknown) (unknown) (no (unknown) (unknown) diazepam 10 mg (units (unknown) date) tablet 10 mg PO QID unknown) #120 tabs 10/12/21 (unknown) (no (unknown) (unknown) diazepam 10 mg (units (unknown) date) tablet unknown) (unknown) (no (unknown) (unknown) diazepam 5 mg (units ( unknown) date) tablet (Valium) 5 mg unknown) PO TID PRN muscle spasm #10 10/19/21 (unknown) (no (unknown) (unknown) diazepam [Valium] 5 (unit s (unknown) date) mg tablet unknown) (unknown) (no (unknown) (unknown) diclofenac sodium 1 (unit s (unknown) date) % gel unknown) (unknown) (no (unknown) (unknown) diclofenac sodium 1 (unit s (unknown) date) % topical gel 2 g unknown) topical QID #100 grams 05/05/22 (unknown) (no (unknown) (unknown) dilation of (units (un known) date) unknown) (unknown) (no (unknown) (unknown) distress. (units (unkn own) date) unknown) (unknown) (no (unknown) (unknown) diverticula.? No (units (unknown) date) abscess or unknown) pathologic ascites. (unknown) (no (unknown) (unknown) doxycycline (units (un known) date) [DOXYCYCLINE] unknown) Allergy Mild Verified 04/22/22 14:44 (unknown) (no (unknown) (unknown) epinephrine 0.3 (units (unknown) date) mg/0.3 mL See Rx unknown) Instructions .Route 02/27/22 (unknown) (no (unknown) (unknown) epinephrine 0.3 (units (unknown) date) mg/0.3 mL unknown) auto-injector (unknown) (no (unknown) (unknown) evaluated on CT, (units (unknown) date) consider ultrasound unknown) correlation if needed. (unknown) (no (unknown) (unknown) follow-up with your (unit s (unknown) date) dark thirst in unknown) regards to other ongoing problem (unknown) (no (unknown) (unknown) following was (units ( unknown) date) used:? automated unknown) exposure control, adjustment of mA and/or kV (unknown) (no (unknown) (unknown) gastritis. She can (units (unknown) date) not have NSAIDs. She unknown) is taking oxycodone. (unknown) (no (unknown) (unknown) given any further (units (unknown) date) pain medication. She unknown) reports that for UTI Levaquin is only 1 (unknown) (no (unknown) (unknown) hand (units (unkno wn) date) unknown) (unknown) (no (unknown) (unknown) has opened. However (unit s (unknown) date) patient reports that unknown) she only started bleeding 2 days ago. (unknown) (no (unknown) (unknown) having galactorrhea (unit s (unknown) date) which started 2 days unknown) ago. She says this is persisting. She (unknown) (no (unknown) (unknown) household members: (units (unknown) date) spouse and children unknown) (unknown) (no (unknown) (unknown) hydrocodone Allergy (unit s (unknown) date) Mild rash Verified unknown) 04/22/22 14:44 (unknown) (no (unknown) (unknown) hydronephrosis.? (units (unknown) date) Nonspecific trace unknown) hyperattenuating appearance of the renal (unknown) (no (unknown) (unknown) injection, (units (unk nown) date) auto-injector unknown) .COMPLEX #2 ea (unknown) (no (unknown) (unknown) intact (units (unkno wn) date) unknown) (unknown) (no (unknown) (unknown) iodine [IODINE] (units (unknown) date) Allergy Mild unknown) Verified 04/22/22 14:44 (unknown) (no (unknown) (unknown) is metoclopramide (units (unknown) date) Phenergan and unknown) oxycodone all which increase and (unknown) (no (unknown) (unknown) lamotrigine 200 mg (units (unknown) date) tablet 200 mg PO unknown) DAILY #30 tabs 01/18/22 (unknown) (no (unknown) (unknown) lamotrigine 200 mg (units (unknown) date) tablet unknown) (unknown) (no (unknown) (unknown) latex [LATEX] (units ( unknown) date) Allergy Unknown unknown) Verified 04/22/22 14:44 (unknown) (no (unknown) (unknown) left ovary, with (units (unknown) date) decreased size of unknown) previously seen cyst, reproductive organs are (unknown) (no (unknown) (unknown) levofloxacin 500 mg (unit s (unknown) date) tablet 500 mg PO unknown) DAILY 3 days #3 tabs 11/16/22 (unknown) (no (unknown) (unknown) levofloxacin 500 mg (unit s (unknown) date) tablet unknown) (unknown) (no (unknown) (unknown) lidocaine AdvReac (units (unknown) date) Palpitation Verified unknown) 04/22/22 14:44 (unknown) (no (unknown) (unknown) lives (units (unkno wn) date) independently: Yes unknown) (unknown) (no (unknown) (unknown) marital status: (units (unknown) date) unknown) (unknown) (no (unknown) (unknown) medication versus (units (unknown) date) other. Her PCP is unknown) ordering more tests. Overall she appears (unknown) (no (unknown) (unknown) membranes (units (unkn own) date) unknown) (unknown) (no (unknown) (unknown) metformin 500 mg (units (unknown) date) tablet 500 mg PO BID unknown) #60 tabs 02/21/22 (unknown) (no (unknown) (unknown) metformin 500 mg (units (unknown) date) tablet unknown) (unknown) (no (unknown) (unknown) metoclopramide (units (unknown) date) Allergy Mild unknown) Verified 04/22/22 14:44 (unknown) (no (unknown) (unknown) mg tablet (units (unkn own) date) (Percocet) unknown) (unknown) (no (unknown) (unknown) multiple EGDs, e (units (unknown) date) history of vaginal unknown) bleeding despite hysterectomy, presents (unknown) (no (unknown) (unknown) neuroleptic (units (un known) date) seizures, PTSD unknown) depression, erosive gastritis causing hematemesis (unknown) (no (unknown) (unknown) not well (units (unkno wn) date) unknown) (unknown) (no (unknown) (unknown) occupational (units (u nknown) date) status: employed unknown) (unknown) (no (unknown) (unknown) oxycodone 10 mg (units (unknown) date) tablet 5 mg PO Q6H unknown) PRN pain #14 tabs 05/05/22 (unknown) (no (unknown) (unknown) oxycodone 10 mg (units (unknown) date) tablet unknown) (unknown) (no (unknown) (unknown) oxycodone-acetamino (unit s (unknown) date) phen 5 mg-325 1 tab unknown) PO Q8H PRN pain #6 tabs 04/22/22 (unknown) (no (unknown) (unknown) oxycodone-acetamino (unit s (unknown) date) phen [Percocet] unknown) 5-325 mg tablet (unknown) (no (unknown) (unknown) patient size.? (units (unknown) date) unknown) (unknown) (no (unknown) (unknown) prolactin levels. (units (unknown) date) She apparently does unknown) have vaginal bleeding there is a known (unknown) (no (unknown) (unknown) pyramids is (units (un known) date) unknown) (unknown) (no (unknown) (unknown) quadrant pain is (units (unknown) date) identified. She is unknown) multiple other issues that are currently (unknown) (no (unknown) (unknown) quetiapine 100 mg (units (unknown) date) tablet 100 mg PO unknown) BEDTIME 08/02/22 08/02/22 (unknown) (no (unknown) (unknown) quetiapine 100 mg (units (unknown) date) tablet unknown) (unknown) (no (unknown) (unknown) quetiapine 25 mg (units (unknown) date) tablet See Rx unknown) Instructions PO BEDTIME #45 01/18/22 (unknown) (no (unknown) (unknown) quetiapine 25 mg (units (unknown) date) tablet unknown) (unknown) (no (unknown) (unknown) received per (units (u nknown) date) another provider. unknown) (unknown) (no (unknown) (unknown) reduction, the (units (unknown) date) unknown) (unknown) (no (unknown) (unknown) s (units (unkno wn) date) unknown) (unknown) (no (unknown) (unknown) says have blood in (units (unknown) date) her urine some unknown) leukocytes. No nitrates. Will treat for a (unknown) (no (unknown) (unknown) sertraline 100 mg (units (unknown) date) tablet 200 mg PO unknown) DAILY #60 tabs 01/18/22 (unknown) (no (unknown) (unknown) sertraline 100 mg (units (unknown) date) tablet unknown) (unknown) (no (unknown) (unknown) shellfish derived (units (unknown) date) Allergy Severe unknown) ANAPHYLAXIS Verified 04/22/22 14:44 (unknown) (no (unknown) (unknown) small opening in the (unit s (unknown) date) cuff of her unknown) hysterectomy as identified her surgeon when she (unknown) (no (unknown) (unknown) sometimes (units (unkn own) date) associated with unknown) nephrocalcinosis. (unknown) (no (unknown) (unknown) started lactating (units (unknown) date) she started vaginal unknown) bleeding again. She denies fever or (unknown) (no (unknown) (unknown) sulfamethoxazole (units (unknown) date) Allergy Mild RASH unknown) Verified 04/22/22 14:44 (unknown) (no (unknown) (unknown) symptoms (units (unkno wn) date) unknown) (unknown) (no (unknown) (unknown) tabs (units (unkno wn) date) unknown) (unknown) (no (unknown) (unknown) that works. She has (unit s (unknown) date) no sign of sepsis unknown) she can start antibiotic tomorrow. (unknown) (no (unknown) (unknown) the biliary tree or (units (unknown) date) pancreatic duct.? unknown) Similar borderline splenomegaly, measuring (unknown) (no (unknown) (unknown) tobacco type: (units ( unknown) date) vaping unknown) (unknown) (no (unknown) (unknown) today with left (units (unknown) date) lower quadrant pain unknown) nausea vomiting in vaginal bleeding. She (unknown) (no (unknown) (unknown) tramadol 50 mg (units (unknown) date) tablet 100 mg PO BID unknown) PRN severe pain 03/22/22 (unknown) (no (unknown) (unknown) tramadol 50 mg (units (unknown) date) tablet unknown) (unknown) (no (unknown) (unknown) trazodone 100 mg (units (unknown) date) tablet See Rx unknown) Instructions .Route 11/20/21 (unknown) (no (unknown) (unknown) trazodone 100 mg (units (unknown) date) tablet unknown) (unknown) (no (unknown) (unknown) trimethoprim [From (units (unknown) date) BACTRIM] Allergy unknown) Mild RASH Verified 04/22/22 14:44 (unknown) (no (unknown) (unknown) well. She is given (units (unknown) date) 1 dose of Dilaudid unknown) she understands that she will not be (unknown) (no (unknown) (unknown) within normal (units ( unknown) date) limits. Patient had unknown) CT does not show any abnormality. She is Result panel 352 (unknown) (no date) (unknown) (unknown) (no value) (units (un known) unknown) (unknown) (no date) (unknown) (unknown) Mixed gram + (units ( unknown) sue. Deemed unknown) unsuitable for further studies. Result panel 353 (unknown) (no date) (unknown) (unknown) (no value) (units (un known) unknown) (unknown) (no date) (unknown) (unknown) Mixed gram + (units ( unknown) sue. Deemed unknown) unsuitable for further studies. (unknown) (no date) (unknown) (unknown) Very Early (units (un known) Growth: Culture unknown) too young for work-up reincubated Result panel 354 (unknown) (no (unknown) (unknown) (no value) (units (unk nown) date) unknown) (unknown) (no (unknown) (unknown) >=16 (units (unkno wn) date) unknown) (unknown) (no (unknown) (unknown) <=0.12 (units (unkno wn) date) unknown) (unknown) (no (unknown) (unknown) <=0.25 (units (unkno wn) date) unknown) (unknown) (no (unknown) (unknown) <=0.5 (units (unkno wn) date) unknown) (unknown) (no (unknown) (unknown) 1 (units (unkno wn) date) unknown) (unknown) (no (unknown) (unknown) 10,000 - 20,000 cfu/ml (unknown) date) (unknown) (no (unknown) (unknown) 2 (units (unkno wn) date) unknown) (unknown) (no (unknown) (unknown) All (units (unkno wn) date) Beta-hemolytic unknown) Streptococcus organisms are considered (unknown) (no (unknown) (unknown) LIGHT GROWTH (units (u nknown) date) MIXED NORMAL unknown) SUE PRESENT (unknown) (no (unknown) (unknown) Mixed gram + (units (u nknown) date) sue. Deemed unknown) unsuitable for further studies. (unknown) (no (unknown) (unknown) No Further (units (unk nown) date) Workup unknown) (unknown) (no (unknown) (unknown) STRAGAStrep (units (un known) date) agalactiae - unknown) (group b) (unknown) (no (unknown) (unknown) sensitive to (units (u nknown) date) penicillins and unknown) cephalosporins. Result panel 355 (unknown) (no (unknown) (unknown) (no value) (units (unk nown) date) unknown) (unknown) (no (unknown) (unknown) #: [id number] (units ( unknown) date) unknown) (unknown) (no (unknown) (unknown) 11/21/22 (units (unkno wn) date) unknown) (unknown) (no (unknown) (unknown) 1. Mild (units (unkno wn) date) superior unknown) subluxation of AC joint suggesting grade 2 AC separation. (unknown) (no (unknown) (unknown) [address] (units (unkn own) date) Street unknown) (unknown) (no (unknown) (unknown) 2. Intact (units (unkn own) date) glenohumeral unknown) joint. (unknown) (no (unknown) (unknown) Accession (units (unkn own) date) Number: unknown) [id number] (unknown) (no (unknown) (unknown) Accession (units (unkn own) date) Number: unknown) [id number] (unknown) (no (unknown) (unknown) Age/Sex: 27 / F (units (unknown) date) Date of Service: unknown) (unknown) (no (unknown) (unknown) [place] (units ( unknown) date) [id number] unknown) (unknown) (no (unknown) (unknown) Approved by: (units (u nknown) date) Mercy Gil M.D. unknown) on 11/21/2022 at 17:01 (unknown) (no (unknown) (unknown) Approved by: (units (u nknown) date) mary Dickinson M.D. on 11/21/2022 at 16:54 (unknown) (no (unknown) (unknown) Bones and chest (units (unknown) date) wall: No unknown) suspicious bony lesions. Overlying soft tissues (unknown) (no (unknown) (unknown) Bones: Mild (units (un known) date) superior unknown) subluxation of the distal clavicle at the AC joint without (unknown) (no (unknown) (unknown) COMPARISON: (units (un known) date) [facility], unknown) CR, XR CHEST 1V, 06/28/2020, 15:14. (unknown) (no (unknown) (unknown) COMPARISON: (units (un known) date) [facility], unknown) CR, XR SHOULDER RT MIN 2V, 05/05/2022, 17:39. (unknown) (no (unknown) (unknown) : 1995 (units (unknown) date) Acct:[id number] unknown) (unknown) (no (unknown) (unknown) Dictated by: (units (u nknown) date) Mercy Gil M.D. unknown) on 11/21/2022 at 16:59 (unknown) (no (unknown) (unknown) Dictated by: (units (u nknown) date) Zaida Aceves, unknown) Raphael on 11/21/2022 at 16:54 (unknown) (no (unknown) (unknown) FINDINGS: (units (unkn own) date) unknown) (unknown) (no (unknown) (unknown) Hospital, , (units ( unknown) date) XR CHEST 1V, unknown) 11/21/2022, 16:20. (unknown) (no (unknown) (unknown) IMPRESSION: No (units (unknown) date) acute pulmonary unknown) process. (unknown) (no (unknown) (unknown) IMPRESSION: (units (un known) date) unknown) (unknown) (no (unknown) (unknown) INDICATIONS: (units (u nknown) date) chest pain unknown) (unknown) (no (unknown) (unknown) INDICATIONS: (units (u nknown) date) syncopal unknown) episode/L shoulder pain/poss dislocation (unknown) (no (unknown) (unknown) [facility] (units (unknown) date) unknown) (unknown) (no (unknown) (unknown) [place] (units (unkno wn) date) unknown) (unknown) (no (unknown) (unknown) Loc: ED (units (unkno wn) date) unknown) (unknown) (no (unknown) (unknown) Lungs and (units (unkn own) date) pleura: Lungs unknown) are clear. No pleural effusions or pneumothorax. (unknown) (no (unknown) (unknown) Mediastinum: (units (u nknown) date) Mediastinal unknown) contours appear normal. Heart size is normal. (unknown) (no (unknown) (unknown) Ordering (units (unkno wn) date) Provider: unknown) Shai Baron D.O. (unknown) (no (unknown) (unknown) PROCEDURE: XR (units ( unknown) date) CHEST 1V unknown) (unknown) (no (unknown) (unknown) PROCEDURE: XR (units ( unknown) date) SHOULDER LT MIN unknown) 2V (unknown) (no (unknown) (unknown) Patient: (units (unkno wn) date) nIder Jorgensen unknown) ey M MR (unknown) (no (unknown) (unknown) Procedure: XR (units ( unknown) date) chest 1V unknown) (unknown) (no (unknown) (unknown) Procedure: XR (units ( unknown) date) shoulder LT min unknown) 2V (unknown) (no (unknown) (unknown) Recommend (units (unkn own) date) unknown) (unknown) (no (unknown) (unknown) Signed (units (unkno wn) date) unknown) (unknown) (no (unknown) (unknown) Soft tissues: (units ( unknown) date) No suspicious unknown) soft tissue calcifications. (unknown) (no (unknown) (unknown) Surgical (units (unkno wn) date) changes and unknown) devices: None. (unknown) (no (unknown) (unknown) TECHNIQUE: One (units (unknown) date) view of the unknown) chest was acquired. (unknown) (no (unknown) (unknown) TECHNIQUE: To (units ( unknown) date) views of the unknown) shoulder were acquired. (unknown) (no (unknown) (unknown) Visualized ribs (units (unknown) date) unknown) (unknown) (no (unknown) (unknown) XRay Report (units (un known) date) unknown) (unknown) (no (unknown) (unknown) appear intact. (units (unknown) date) unknown) (unknown) (no (unknown) (unknown) appear (units (unkno wn) date) unknown) (unknown) (no (unknown) (unknown) correlation (units (un known) date) with focal unknown) pain/tenderness. If clinically indicated, weight bearing (unknown) (no (unknown) (unknown) of AC joint. No (units (unknown) date) fractures or unknown) dislocations. No suspicious bony lesions. (unknown) (no (unknown) (unknown) the clavicles (units ( unknown) date) may be obtained. unknown) (unknown) (no (unknown) (unknown) unremarkable. (units ( unknown) date) unknown) (unknown) (no (unknown) (unknown) view of (units (unkno wn) date) unknown) (unknown) (no (unknown) (unknown) widening (units (unkno wn) date) unknown) Result panel 356 (unknown) (no (unknown) (unknown) (no value) (units (unk nown) date) unknown) (unknown) (no (unknown) (unknown) #: [id number] (units ( unknown) date) unknown) (unknown) (no (unknown) (unknown) 11/21/22 (units (unkno wn) date) unknown) (unknown) (no (unknown) (unknown) 1. No acute (units (un known) date) intracranial unknown) process. (unknown) (no (unknown) (unknown) [address] [place] [address] (units (unknown) date) unknown) (unknown) (no (unknown) (unknown) 12:18. (units (unkno wn) date) unknown) (unknown) (no (unknown) (unknown) Accession (units (unkn own) date) Number: unknown) [id number] (unknown) (no (unknown) (unknown) Accession (units (unkn own) date) Number: unknown) [id number] (unknown) (no (unknown) (unknown) Accession (units (unkn own) date) Number: unknown) [id number] (unknown) (no (unknown) (unknown) Age/Sex: 27 / F (units (unknown) date) Date of Service: unknown) (unknown) (no (unknown) (unknown) [place] (units ( unknown) date) [id number] unknown) (unknown) (no (unknown) (unknown) Approved by: (units (u nknown) date) Mercy Gil M.D. unknown) on 11/21/2022 at 17:02 (unknown) (no (unknown) (unknown) Approved by: (units (u nknown) date) mary Dickinson M.D. on 11/21/2022 at 16:51 (unknown) (no (unknown) (unknown) Approved by: (units (u nknown) date) mary Dickinson M.D. on 11/21/2022 at 16:52 (unknown) (no (unknown) (unknown) Bones: No (units (unkn own) date) fractures or unknown) dislocations. No suspicious bony lesions. (unknown) (no (unknown) (unknown) Bones: No (units (unkn own) date) fractures or unknown) dislocations. Visualized superior ribs are intact. (unknown) (no (unknown) (unknown) Brain: No (units (unkn own) date) midline shift. No unknown) intracranial masses or hemorrhage. [place] (unknown) (no (unknown) (unknown) COMPARISON: (units (un known) date) [facility], unknown) CR, ELBOW 3+ VIEWS LEFT, 07/19/2008, 15:34. SNO (unknown) (no (unknown) (unknown) COMPARISON: (units (un known) date) [facility], unknown) CT, CT CERVICAL SPINE WO CON, 04/22/2022, 15:07. (unknown) (no (unknown) (unknown) COMPARISON: (units (un known) date) [facility] unknown) [facility], MR, MR BRAIN WITHOUT CONTRAST, 06/07/2022, (unknown) (no (unknown) (unknown) CSF spaces: (units (un known) date) Basal cisterns unknown) are patent. No extra-axial fluid collections. (unknown) (no (unknown) (unknown) CT Scan Report (units (unknown) date) unknown) (unknown) (no (unknown) (unknown) : 1995 (units (unknown) date) Acct:[id number] unknown) (unknown) (no (unknown) (unknown) Dictated by: (units (u nknown) date) Mercy Gil M.D. unknown) on 11/21/2022 at 17:01 (unknown) (no (unknown) (unknown) Dictated by: (units (u nknown) date) mary Dickinson M.D. on 11/21/2022 at 16:50 (unknown) (no (unknown) (unknown) Dictated by: (units (u nknown) date) mary Dickinson M.D. on 11/21/2022 at 16:51 (unknown) (no (unknown) (unknown) FINDINGS: (units (unkn own) date) unknown) (unknown) (no (unknown) (unknown) Film, CR, XR (units (u nknown) date) ELBOW 1 OR 2 unknown) VIEWS LEFT, 01/31/2022, 13:10. (unknown) (no (unknown) (unknown) IMPRESSION: Mild (units (unknown) date) reversal cervical unknown) curvature overall nonspecific. This could (unknown) (no (unknown) (unknown) IMPRESSION: No (units (unknown) date) acute osseous unknown) abnormality. If clinical symptoms persist or (unknown) (no (unknown) (unknown) IMPRESSION: (units (un known) date) unknown) (unknown) (no (unknown) (unknown) INDICATIONS: (units (u nknown) date) fall with elbow unknown) pain (unknown) (no (unknown) (unknown) INDICATIONS: (units (u nknown) date) syncope with head unknown) injury (unknown) (no (unknown) (unknown) INDICATIONS: (units (u nknown) date) syncope with head unknown) injury, distracting injury (unknown) (no (unknown) (unknown) Image quality: (units (unknown) date) Excellent. unknown) (unknown) (no (unknown) (unknown) [facility] (units (unknown) date) unknown) (unknown) (no (unknown) (unknown) [facility], (units (unknown) date) CT, CT HEAD/BRAIN unknown) WO CON, 05/05/2022, 17:43. (unknown) (no (unknown) (unknown) Loc: ED (units (unkno wn) date) unknown) (unknown) (no (unknown) (unknown) Noncontrast 3 mm (units (unknown) date) thick sections unknown) acquired from the skull base to the T4 level. (unknown) (no (unknown) (unknown) Noncontrast 4.5 (units (unknown) date) mm thick angled unknown) axial sections acquired from the foramen magnum (unknown) (no (unknown) (unknown) Ordering (units (unkno wn) date) Provider: unknown) Shai Baron D.O. (unknown) (no (unknown) (unknown) Outside (units (unkno wn) date) unknown) (unknown) (no (unknown) (unknown) PROCEDURE: CT (units ( unknown) date) CERVICAL SPINE WO unknown) CON (unknown) (no (unknown) (unknown) PROCEDURE: CT (units ( unknown) date) HEAD/BRAIN WO CON unknown) (unknown) (no (unknown) (unknown) PROCEDURE: XR (units ( unknown) date) ELBOW LT MIN 3V unknown) (unknown) (no (unknown) (unknown) Patient: (units (unkno wn) date) Azam Jorgensen unknown) y M MR (unknown) (no (unknown) (unknown) Procedure: CT (units ( unknown) date) cervical spine wo unknown) con (unknown) (no (unknown) (unknown) Procedure: CT (units ( unknown) date) head/brain wo con unknown) (unknown) (no (unknown) (unknown) Procedure: XR (units ( unknown) date) elbow LT min 3V unknown) (unknown) (no (unknown) (unknown) Sagittal (units (unkno wn) date) unknown) (unknown) (no (unknown) (unknown) Signed (units (unkno wn) date) unknown) (unknown) (no (unknown) (unknown) Sinuses: (units (unkno wn) date) Visualized unknown) sinuses and mastoids are clear. (unknown) (no (unknown) (unknown) Skull and face: (units (unknown) date) Calvarium and unknown) visualized facial bones are intact, without (unknown) (no (unknown) (unknown) Soft tissues: No (units (unknown) date) elbow joint unknown) effusion. No suspicious soft tissue (unknown) (no (unknown) (unknown) Soft tissues: (units ( unknown) date) Prevertebral soft unknown) tissues are normal in thickness. No (unknown) (no (unknown) (unknown) TECHNIQUE: 2 (units (u nknown) date) views of the unknown) elbow were acquired. (unknown) (no (unknown) (unknown) TECHNIQUE: (units (unk nown) date) unknown) (unknown) (no (unknown) (unknown) There is (units (unkno wn) date) unknown) (unknown) (no (unknown) (unknown) Ventricles (units (unk nown) date) unknown) (unknown) (no (unknown) (unknown) XRay Report (units (un known) date) unknown) (unknown) (no (unknown) (unknown) and coronal (units (un known) date) reformats were unknown) then constructed. For radiation dose reduction, the (unknown) (no (unknown) (unknown) are normal in (units ( unknown) date) size and shape. unknown) (unknown) (no (unknown) (unknown) be (units (unkno wn) date) unknown) (unknown) (no (unknown) (unknown) calcifications. (units (unknown) date) unknown) (unknown) (no (unknown) (unknown) clinical (units (unkno wn) date) unknown) (unknown) (no (unknown) (unknown) following (units (unkn own) date) unknown) (unknown) (no (unknown) (unknown) hematomas. No (units ( unknown) date) apical unknown) pneumothoraces. (unknown) (no (unknown) (unknown) imaging (units (unkno wn) date) unknown) (unknown) (no (unknown) (unknown) interface is (units (u nknown) date) normal. unknown) (unknown) (no (unknown) (unknown) lesions. (units (unkno wn) date) unknown) (unknown) (no (unknown) (unknown) matter (units (unkno wn) date) unknown) (unknown) (no (unknown) (unknown) mild reversal (units ( unknown) date) cervical unknown) curvature. (unknown) (no (unknown) (unknown) paravertebral (units ( unknown) date) unknown) (unknown) (no (unknown) (unknown) patient (units (unkno wn) date) unknown) (unknown) (no (unknown) (unknown) positional. (units (un known) date) unknown) (unknown) (no (unknown) (unknown) size. (units (unkno wn) date) unknown) (unknown) (no (unknown) (unknown) such as CT or (units ( unknown) date) MRI is suggested unknown) for further evaluation. (unknown) (no (unknown) (unknown) suspicion for (units ( unknown) date) pathology is unknown) high, a repeat examination in 7-10 days, or advanced (unknown) (no (unknown) (unknown) suspicious (units (unk nown) date) unknown) (unknown) (no (unknown) (unknown) to the (units (unkno wn) date) unknown) (unknown) (no (unknown) (unknown) vertex, with (units (u nknown) date) coronal and unknown) sagittal reformats. For radiation dose reduction, the (unknown) (no (unknown) (unknown) was used: (units (unkn own) date) automated unknown) exposure control, adjustment of mA and/or kV according to Result panel 357 (unknown) (no date) (unknown) (unknown) 0 /ul (unkn own) (unknown) (no date) (unknown) (unknown) 0.4 % (unkn own) (unknown) (no date) (unknown) (unknown) 1.8 % (unkn own) (unknown) (no date) (unknown) (unknown) 100 /ul (unkn own) (unknown) (no date) (unknown) (unknown) 12.6 % (unkn own) (unknown) (no date) (unknown) (unknown) 12.6 g/dl (unkn own) (unknown) (no date) (unknown) (unknown) 197 x10 3/ul (unkn own) (unknown) (no date) (unknown) (unknown) 2200 /ul (unkn own) (unknown) (no date) (unknown) (unknown) 2300 /ul (unkn own) (unknown) (no date) (unknown) (unknown) 30.9 pg (unkn own) (unknown) (no date) (unknown) (unknown) 34.5 % (unkn own) (unknown) (no date) (unknown) (unknown) 36.7 % (unkn own) (unknown) (no date) (unknown) (unknown) 4.10 x10 6/ul (unkn own) (unknown) (no date) (unknown) (unknown) 43.6 % (unkn own) (unknown) (no date) (unknown) (unknown) 44.8 % (unkn own) (unknown) (no date) (unknown) (unknown) 5.0 x10 3/ul (unkn own) (unknown) (no date) (unknown) (unknown) 500 /ul (unkn own) (unknown) (no date) (unknown) (unknown) 89.6 fl (unkn own) (unknown) (no date) (unknown) (unknown) 9.4 % (unkn own) Result panel 358 (unknown) (no date) (unknown) (unknown) 1.0 (units unknown) (unknown) (unknown) (no date) (unknown) (unknown) 12.0 seconds (unkn own) Result panel 359 (unknown) (no date) (unknown) (unknown) 1.0 (units unknown) (unknown) (unknown) (no date) (unknown) (unknown) 12.0 seconds (unkn own) (unknown) (no date) (unknown) (unknown) 26 seconds (unkn own) (unknown) (no date) (unknown) (unknown) 26 seconds (unkn own) Result panel 360 (unknown) (no date) (unknown) (unknown) > 60 ml/min (unkn own) (unknown) (no date) (unknown) (unknown) > 60 ml/min (unkn own) (unknown) (no date) (unknown) (unknown) 0.6 mg/dl (unkn own) (unknown) (no date) (unknown) (unknown) 0.86 mg/dl (unkn own) (unknown) (no date) (unknown) (unknown) 1.6 (units (unkn own) unknown) (unknown) (no date) (unknown) (unknown) 1.9 mg/dl (unkn own) (unknown) (no date) (unknown) (unknown) 101 mmol/l (unkn own) (unknown) (no date) (unknown) (unknown) 136 mmol/l (unkn own) (unknown) (no date) (unknown) (unknown) 15 iu/l (unkn own) (unknown) (no date) (unknown) (unknown) 17 iu/l (unkn own) (unknown) (no date) (unknown) (unknown) 18 mg/dl (unkn own) (unknown) (no date) (unknown) (unknown) 2.6 g/dl (unkn own) (unknown) (no date) (unknown) (unknown) 20.9 (units (unkn own) unknown) (unknown) (no date) (unknown) (unknown) 29 mmol/l (unkn own) (unknown) (no date) (unknown) (unknown) 37 u/l (unkn own) (unknown) (no date) (unknown) (unknown) 4.1 g/dl (unkn own) (unknown) (no date) (unknown) (unknown) 4.1 mmol/l (unkn own) (unknown) (no date) (unknown) (unknown) 59 u/l (unkn own) (unknown) (no date) (unknown) (unknown) 6.7 g/dl (unkn own) (unknown) (no date) (unknown) (unknown) 8.7 mg/dl (unkn own) (unknown) (no date) (unknown) (unknown) 81 mg/dl (unkn own) (unknown) (no date) (unknown) (unknown) 81 mg/dl (unkn own) (unknown) (no date) (unknown) (unknown) 98 u/l (unkn own) (unknown) (no date) (unknown) (unknown) Test not % (unkn own) performed (unknown) (no date) (unknown) (unknown) Test not % (unkn own) performed (unknown) (no date) (unknown) (unknown) Test not ng/ml (unkn own) performed (unknown) (no date) (unknown) (unknown) Test not ng/ml (unkn own) performed Result panel 361 (unknown) (no date) (unknown) (unknown) 0.8 mmol/l (unkn own) Result panel 362 (unknown) (no date) (unknown) (unknown) > 60 ml/min (unkn own) (unknown) (no date) (unknown) (unknown) > 60 ml/min (unkn own) (unknown) (no date) (unknown) (unknown) < 0.012 ng/ml (unkn own) (unknown) (no date) (unknown) (unknown) < 0.012 ng/ml (unkn own) (unknown) (no date) (unknown) (unknown) 0.6 mg/dl (unkn own) (unknown) (no date) (unknown) (unknown) 0.86 mg/dl (unkn own) (unknown) (no date) (unknown) (unknown) 1.6 (units (unkn own) unknown) (unknown) (no date) (unknown) (unknown) 1.9 mg/dl (unkn own) (unknown) (no date) (unknown) (unknown) 101 mmol/l (unkn own) (unknown) (no date) (unknown) (unknown) 136 mmol/l (unkn own) (unknown) (no date) (unknown) (unknown) 15 iu/l (unkn own) (unknown) (no date) (unknown) (unknown) 17 iu/l (unkn own) (unknown) (no date) (unknown) (unknown) 18 mg/dl (unkn own) (unknown) (no date) (unknown) (unknown) 2.6 g/dl (unkn own) (unknown) (no date) (unknown) (unknown) 20.9 (units (unkn own) unknown) (unknown) (no date) (unknown) (unknown) 29 mmol/l (unkn own) (unknown) (no date) (unknown) (unknown) 37 u/l (unkn own) (unknown) (no date) (unknown) (unknown) 4.1 g/dl (unkn own) (unknown) (no date) (unknown) (unknown) 4.1 mmol/l (unkn own) (unknown) (no date) (unknown) (unknown) 59 u/l (unkn own) (unknown) (no date) (unknown) (unknown) 6.7 g/dl (unkn own) (unknown) (no date) (unknown) (unknown) 8.7 mg/dl (unkn own) (unknown) (no date) (unknown) (unknown) 81 mg/dl (unkn own) (unknown) (no date) (unknown) (unknown) 81 mg/dl (unkn own) (unknown) (no date) (unknown) (unknown) 98 u/l (unkn own) (unknown) (no date) (unknown) (unknown) Test not % (unkn own) performed (unknown) (no date) (unknown) (unknown) Test not % (unkn own) performed (unknown) (no date) (unknown) (unknown) Test not ng/ml (unkn own) performed (unknown) (no date) (unknown) (unknown) Test not ng/ml (unkn own) performed Result panel 363 (unknown) (no date) (unknown) (unknown) Negative (units (unkn own) unknown) (unknown) (no date) (unknown) (unknown) Negative (units (unkn own) unknown) Result panel 364 (unknown) (no (unknown) (unknown) (no value) (units (unk nown) date) unknown) (unknown) (no (unknown) (unknown) (scale score 7-10) (units (unknown) date) #60 tabs unknown) (unknown) (no (unknown) (unknown) .COMPLEX #180 tabs (units (unknown) date) unknown) (unknown) (no (unknown) (unknown) 11/21/22 11/21/22 (units (unknown) date) 11/21/22 unknown) Range/Units (unknown) (no (unknown) (unknown) 11/21/22 11/21/22 (units (unknown) date) Range/Units unknown) (unknown) (no (unknown) (unknown) 11/21/22 16:11 (units (unknown) date) unknown) (unknown) (no (unknown) (unknown) 11/21/22 16:12 (units (unknown) date) unknown) (unknown) (no (unknown) (unknown) 11/21/22 16:13 (units (unknown) date) unknown) (unknown) (no (unknown) (unknown) 11/21/22 16:15 (units (unknown) date) unknown) (unknown) (no (unknown) (unknown) 11/21/22 16:20 (units (unknown) date) unknown) (unknown) (no (unknown) (unknown) 11/21/22 (units (unkno wn) date) unknown) (unknown) (no (unknown) (unknown) 1 tab PO Q8H PRN (units (unknown) date) (Reason: pain) Qty: unknown) 6 0RF (unknown) (no (unknown) (unknown) 10 mg PO QID Qty: (units (unknown) date) 120 2RF unknown) (unknown) (no (unknown) (unknown) 100 mg PO BEDTIME (units (unknown) date) unknown) (unknown) (no (unknown) (unknown) 100 mg PO BID PRN (units (unknown) date) (Reason: severe unknown) pain (scale score 7-10)) Qty: 60 0RF (unknown) (no (unknown) (unknown) 15:57 (units (unkno wn) date) unknown) (unknown) (no (unknown) (unknown) 16:15 16:15 16:15 (units (unknown) date) unknown) (unknown) (no (unknown) (unknown) 16:15 16:15 (units (un known) date) unknown) (unknown) (no (unknown) (unknown) 2 g topical QID (units (unknown) date) Qty: 100 3RF unknown) (unknown) (no (unknown) (unknown) 200 mg PO DAILY (units (unknown) date) Qty: 30 2RF unknown) (unknown) (no (unknown) (unknown) 200 mg PO DAILY (units (unknown) date) Qty: 60 2RF unknown) (unknown) (no (unknown) (unknown) 5 mg PO Q6H PRN (units (unknown) date) (Reason: pain) Qty: unknown) 14 0RF (unknown) (no (unknown) (unknown) 5 mg PO TID PRN (units (unknown) date) (Reason: muscle unknown) spasm) Qty: 10 0RF (unknown) (no (unknown) (unknown) 500 mg PO BID Qty: (units (unknown) date) 60 0RF unknown) (unknown) (no (unknown) (unknown) : [id number] (units (u nknown) date) unknown) (unknown) (no (unknown) (unknown) ALT (<35) IU/L (units (unknown) date) unknown) (unknown) (no (unknown) (unknown) ALT 15 (<35) IU/L (units (unknown) date) unknown) (unknown) (no (unknown) (unknown) APTT (26-36) (units (u nknown) date) SECONDS unknown) (unknown) (no (unknown) (unknown) APTT 26 (26-36) (units (unknown) date) SECONDS unknown) (unknown) (no (unknown) (unknown) AST (14-36) IU/L (units (unknown) date) unknown) (unknown) (no (unknown) (unknown) AST 17 (14-36) (units (unknown) date) IU/L unknown) (unknown) (no (unknown) (unknown) Age/Sex: 27 / F (units (unknown) date) unknown) (unknown) (no (unknown) (unknown) Albumin (3.5-5.0) (units (unknown) date) g/dL unknown) (unknown) (no (unknown) (unknown) Albumin 4.1 (units (un known) date) (3.5-5.0) g/dL unknown) (unknown) (no (unknown) (unknown) Albumin/Globulin (units (unknown) date) Ratio (1.0-2.8) unknown) (unknown) (no (unknown) (unknown) Albumin/Globulin (units (unknown) date) Ratio 1.6 (1.0-2.8) unknown) (unknown) (no (unknown) (unknown) Alkaline (units (unkno wn) date) Phosphatase unknown) (38-126) U/L (unknown) (no (unknown) (unknown) Alkaline (units (unkno wn) date) Phosphatase 37 L unknown) (38-126) U/L (unknown) (no (unknown) (unknown) Allergies (units (unkn own) date) unknown) (unknown) (no (unknown) (unknown) Allergy/AdvReac (units (unknown) date) Type Severity unknown) Reaction Status Date / Time (unknown) (no (unknown) (unknown) 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 (unknown) (no (unknown) (unknown) BUN (7-17) mg/dL (units (unknown) date) unknown) (unknown) (no (unknown) (unknown) BUN 18 H (7-17) (units (unknown) date) mg/dL unknown) (unknown) (no (unknown) (unknown) BUN/Creatinine (units (unknown) date) Ratio (6-22) unknown) (unknown) (no (unknown) (unknown) BUN/Creatinine (units (unknown) date) Ratio 20.9 (6-22) unknown) (unknown) (no (unknown) (unknown) Baso # (Auto) (units ( unknown) date) (0-100) /uL unknown) (unknown) (no (unknown) (unknown) Baso # (Auto) 0 (units (unknown) date) (0-100) /uL unknown) (unknown) (no (unknown) (unknown) Baso % (Auto) (units ( unknown) date) (0-2) % unknown) (unknown) (no (unknown) (unknown) Baso % (Auto) 0.4 (units (unknown) date) (0-2) % unknown) (unknown) (no (unknown) (unknown) Blood Pressure (units (unknown) date) 123/68 11/21/22 unknown) 15:57 (unknown) (no (unknown) (unknown) Blood Pressure (units (unknown) date) 123/68 unknown) (unknown) (no (unknown) (unknown) Breast cancer (units ( unknown) date) unknown) (unknown) (no (unknown) (unknown) CAD (coronary (units ( unknown) date) artery disease) unknown) (unknown) (no (unknown) (unknown) CK-MB (CK-2) Rel (units (unknown) date) Index TNP unknown) (unknown) (no (unknown) (unknown) CK-MB (CK-2) Rel (units (unknown) date) Index unknown) (unknown) (no (unknown) (unknown) CK-MB (CK-2) TNP (units (unknown) date) unknown) (unknown) (no (unknown) (unknown) CK-MB (CK-2) (units (u nknown) date) unknown) (unknown) (no (unknown) (unknown) COVID19 -Nasal (units (unknown) date) RAPID Stat unknown) (unknown) (no (unknown) (unknown) CT cervical spine (units (unknown) date) wo con Stat unknown) (unknown) (no (unknown) (unknown) CT head/brain wo (units (unknown) date) con Stat unknown) (unknown) (no (unknown) (unknown) Calcium (8.4-10.2) (units (unknown) date) mg/dL unknown) (unknown) (no (unknown) (unknown) Calcium 8.7 (units (un known) date) (8.4-10.2) mg/dL unknown) (unknown) (no (unknown) (unknown) Carbon Dioxide (units (unknown) date) (22-32) mmol/L unknown) (unknown) (no (unknown) (unknown) Carbon Dioxide 29 (units (unknown) date) (22-32) mmol/L unknown) (unknown) (no (unknown) (unknown) Chief complaint: (units (unknown) date) Syncope unknown) (unknown) (no (unknown) (unknown) Chloride (98-107) (units (unknown) date) mmol/L unknown) (unknown) (no (unknown) (unknown) Chloride 101 (units (u nknown) date) (98-107) mmol/L unknown) (unknown) (no (unknown) (unknown) Complete Blood (units (unknown) date) Count AUTO DIFF unknown) Stat (unknown) (no (unknown) (unknown) Comprehensive (units ( unknown) date) Metabolic Panel unknown) Stat (unknown) (no (unknown) (unknown) Contract void and (units (unknown) date) provider will offer unknown) no further tramadol refills if tramadol (unknown) (no (unknown) (unknown) Course (units (unkno wn) date) unknown) (unknown) (no (unknown) (unknown) Creatinine (units (unk nown) date) (0.52-1.04) mg/dL unknown) (unknown) (no (unknown) (unknown) Creatinine 0.86 (units (unknown) date) (0.52-1.04) mg/dL unknown) (unknown) (no (unknown) (unknown) : 1995 (units (unknown) date) Acct:[id number] unknown) (unknown) (no (unknown) (unknown) Date of Service: (units (unknown) date) 11/21/22 unknown) (unknown) (no (unknown) (unknown) Departure (units (unkn own) date) unknown) (unknown) (no (unknown) (unknown) Discharge Plan (units (unknown) date) unknown) (unknown) (no (unknown) (unknown) Discontinued (units (u nknown) date) Medications unknown) (unknown) (no (unknown) (unknown) Documented By: MLM (units (unknown) date) unknown) (unknown) (no (unknown) (unknown) Dose Instruction: (units (unknown) date) unknown) (unknown) (no (unknown) (unknown) ED Orders (units (unkn own) date) unknown) (unknown) (no (unknown) (unknown) EKG-12 Lead Stat (units (unknown) date) unknown) (unknown) (no (unknown) (unknown) ER Physician: (units ( unknown) date) Shai Baron D.O. unknown) (unknown) (no (unknown) (unknown) Emergency Report (units (unknown) date) unknown) (unknown) (no (unknown) (unknown) Endometriosis (units ( unknown) date) unknown) (unknown) (no (unknown) (unknown) Eos # (Auto) (units (u nknown) date) (0-450) /uL unknown) (unknown) (no (unknown) (unknown) Eos # (Auto) 100 (units (unknown) date) (0-450) /uL unknown) (unknown) (no (unknown) (unknown) Eos % (Auto) (2-4) (units (unknown) date) % unknown) (unknown) (no (unknown) (unknown) Eos % (Auto) 1.8 L (units (unknown) date) (2-4) % unknown) (unknown) (no (unknown) (unknown) Estimated GFR > 60 (units (unknown) date) (>60) mL/min unknown) (unknown) (no (unknown) (unknown) Estimated GFR (units ( unknown) date) (>60) mL/min unknown) (unknown) (no (unknown) (unknown) Exam (units (unkno wn) date) unknown) (unknown) (no (unknown) (unknown) Family History (units (unknown) date) (Reviewed 05/05/22 unknown) @ 21:08 by Vargas Hill MD) (unknown) (no (unknown) (unknown) General (units (unkno wn) date) unknown) (unknown) (no (unknown) (unknown) Globulin (1.7-4.1) (units (unknown) date) g/dL unknown) (unknown) (no (unknown) (unknown) Globulin 2.6 (units (u nknown) date) (1.7-4.1) g/dL unknown) (unknown) (no (unknown) (unknown) Glucose (70-100) (units (unknown) date) mg/dL unknown) (unknown) (no (unknown) (unknown) Glucose 81 (units (unk nown) date) (70-100) mg/dL unknown) (unknown) (no (unknown) (unknown) Grandmother (units (un known) date) Ovarian unknown) cancer (unknown) (no (unknown) (unknown) H/O unilateral (units (unknown) date) oophorectomy unknown) () (unknown) (no (unknown) (unknown) H/O: hysterectomy (units (unknown) date) unknown) (unknown) (no (unknown) (unknown) HPI - General (units ( unknown) date) Adult unknown) (unknown) (no (unknown) (unknown) Hct (36-46) % (units ( unknown) date) unknown) (unknown) (no (unknown) (unknown) Hct 36.7 (36-46) % (units (unknown) date) unknown) (unknown) (no (unknown) (unknown) Hematuria (units (unkn own) date) unknown) (unknown) (no (unknown) (unknown) Hgb (12.0-16.0) (units (unknown) date) g/dL unknown) (unknown) (no (unknown) (unknown) Hgb 12.6 (units (unkno wn) date) (12.0-16.0) g/dL unknown) (unknown) (no (unknown) (unknown) History of ureter (units (unknown) date) stent unknown) (unknown) (no (unknown) (unknown) Hold Instructions: [...] FOR ANAPHYLAXIS UNTIL (unknown) (no (unknown) (unknown) INR (0.9-1.3) (units ( unknown) date) unknown) (unknown) (no (unknown) (unknown) INR 1.0 (0.9-1.3) (units (unknown) date) unknown) (unknown) (no (unknown) (unknown) IV DYE] (units (unkno wn) date) unknown) (unknown) (no (unknown) (unknown) Initial Vital (units ( unknown) date) Signs unknown) (unknown) (no (unknown) (unknown) Initial Vital (units ( unknown) date) Signs: unknown) (unknown) (no (unknown) (unknown) Iodinated Contrast (units (unknown) date) Media Allergy unknown) Unknown Verified 11/21/22 16:09 (unknown) (no (unknown) (unknown) [facility] (units (unknown) date) [address] unknown) [place] [address] (unknown) (no (unknown) (unknown) Lab Data (units (unkno wn) date) unknown) (unknown) (no (unknown) (unknown) Lab Results (units (un known) date) unknown) (unknown) (no (unknown) (unknown) Labs: (units (unkno wn) date) unknown) (unknown) (no (unknown) (unknown) Lactate (0.7-2.1) (units (unknown) date) mmol/L unknown) (unknown) (no (unknown) (unknown) Lactate (Lactic (units (unknown) date) Acid) Stat unknown) (unknown) (no (unknown) (unknown) Lactate 0.8 (units (un known) date) (0.7-2.1) mmol/L unknown) (unknown) (no (unknown) (unknown) Last Admin: (units (un known) date) 11/21/22 16:50 unknown) Dose: 40 mg (unknown) (no (unknown) (unknown) Last Admin: (units (un known) date) 11/21/22 17:45 unknown) Dose: 2 tab (unknown) (no (unknown) (unknown) Limit as possible. (units (unknown) date) Prescribed per 03/21 unknown) signed pain management contract. (unknown) (no (unknown) (unknown) Lipase (23-300) (units (unknown) date) U/L unknown) (unknown) (no (unknown) (unknown) Lipase 98 (23-300) (units (unknown) date) U/L unknown) (unknown) (no (unknown) (unknown) Lipase Stat (units (un known) date) unknown) (unknown) (no (unknown) (unknown) Lymph # (Auto) (units (unknown) date) (7222-6374) /uL unknown) (unknown) (no (unknown) (unknown) Lymph # (Auto) (units (unknown) date) 2200 ([id number]) unknown) /uL (unknown) (no (unknown) (unknown) Lymph % (Auto) (units (unknown) date) (25-40) % unknown) (unknown) (no (unknown) (unknown) Lymph % (Auto) (units (unknown) date) 43.6 H (25-40) % unknown) (unknown) (no (unknown) (unknown) MCH (26-34) PG (units (unknown) date) unknown) (unknown) (no (unknown) (unknown) MCH 30.9 (26-34) (units (unknown) date) PG unknown) (unknown) (no (unknown) (unknown) MCHC (30-36) % (units (unknown) date) unknown) (unknown) (no (unknown) (unknown) MCHC 34.5 (30-36) (units (unknown) date) % unknown) (unknown) (no (unknown) (unknown) MCV (80-100) fL (units (unknown) date) unknown) (unknown) (no (unknown) (unknown) MCV 89.6 (80-100) (units (unknown) date) fL unknown) (unknown) (no (unknown) (unknown) Magnesium (units (unkn own) date) (1.6-2.3) mg/dL unknown) (unknown) (no (unknown) (unknown) Magnesium 1.9 (units ( unknown) date) (1.6-2.3) mg/dL unknown) (unknown) (no (unknown) (unknown) Magnesium Stat (units (unknown) date) unknown) (unknown) (no (unknown) (unknown) Major depressive (units (unknown) date) disorder unknown) (unknown) (no (unknown) (unknown) Medical Decision (units (unknown) date) Making unknown) (unknown) (no (unknown) (unknown) Medical History (units (unknown) date) (Reviewed 05/05/22 unknown) @ 21:08 by Vargas Hill MD) (unknown) (no (unknown) (unknown) Medication (units (unk nown) date) Instructions unknown) Recorded Confirmed (unknown) (no (unknown) (unknown) Medication (units (unk nown) date) Instructions unknown) Recorded (unknown) (no (unknown) (unknown) Mode of arrival: (units (unknown) date) EMS unknown) (unknown) (no (unknown) (unknown) [place] # (Auto) (units ( unknown) date) (0-900) /uL unknown) (unknown) (no (unknown) (unknown) [place] # (Auto) 500 (units (unknown) date) (0-900) /uL unknown) (unknown) (no (unknown) (unknown) [place] % (Auto) (units ( unknown) date) (3-14) % unknown) (unknown) (no (unknown) (unknown) [place] % (Auto) 9.4 (units (unknown) date) (3-14) % unknown) (unknown) (no (unknown) (unknown) Morbid obesity (units (unknown) date) unknown) (unknown) (no (unknown) (unknown) 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 unknown) (unknown) (no (unknown) (unknown) Nephrolithiasis (units (unknown) date) (-2018) unknown) (unknown) (no (unknown) (unknown) Neut # (Auto) (units ( unknown) date) (0226-7612) /uL unknown) (unknown) (no (unknown) (unknown) Neut # (Auto) 2300 (units (unknown) date) (0738-3056) /uL unknown) (unknown) (no (unknown) (unknown) Neut % (Auto) (units ( unknown) date) (50-75) % unknown) (unknown) (no (unknown) (unknown) Neut % (Auto) 44.8 (units (unknown) date) L (50-75) % unknown) (unknown) (no (unknown) (unknown) No Action (units (unkn own) date) unknown) (unknown) (no (unknown) (unknown) Ordered: (units (unkno wn) date) unknown) (unknown) (no (unknown) (unknown) Orders (units (unkno wn) date) unknown) (unknown) (no (unknown) (unknown) Ovarian cyst (units (u nknown) date) unknown) (unknown) (no (unknown) (unknown) Oxycodone/Acetamin (units (unknown) date) ophen unknown) (Oxycodone/Acetamin ophen 5/325 Tablet) 2 tab PO NOW ONE (unknown) (no (unknown) (unknown) Oxygen Delivery (units (unknown) date) Method Room Air unknown) 11/21/22 15:57 (unknown) (no (unknown) (unknown) Oxygen Delivery (units (unknown) date) Method Room Air unknown) (unknown) (no (unknown) (unknown) PCOS (polycystic (units (unknown) date) ovarian syndrome) unknown) (unknown) (no (unknown) (unknown) PT (10.1-12.7) (units (unknown) date) SECONDS unknown) (unknown) (no (unknown) (unknown) PT 12.0 (units (unkno wn) date) (10.1-12.7) SECONDS unknown) (unknown) (no (unknown) (unknown) PTT Partial (units (un known) date) Thromboplastin Martinez unknown) Stat (unknown) (no (unknown) (unknown) Pantoprazole (units (u nknown) date) Sodium unknown) (Pantoprazole 40 Mg Vial) 40 mg IV NOW ONE (unknown) (no (unknown) (unknown) Patellar (units (unkno wn) date) dislocation unknown) (unknown) (no (unknown) (unknown) Patient History (units (unknown) date) unknown) (unknown) (no (unknown) (unknown) Patient: (units (unkno wn) date) Eileen Jorgensen unknown) M MR# (unknown) (no (unknown) (unknown) Pelvic congestion (units (unknown) date) (2013) unknown) (unknown) (no (unknown) (unknown) Penicillins (units (un known) date) [PENICILLINS] unknown) Allergy Mild Verified 11/21/22 16:09 (unknown) (no (unknown) (unknown) Plt Count (units (unkn own) date) (150-400) X103/uL unknown) (unknown) (no (unknown) (unknown) Plt Count 197 (units ( unknown) date) (150-400) X103/uL unknown) (unknown) (no (unknown) (unknown) Potassium (units (unkn own) date) (3.4-5.1) mmol/L unknown) (unknown) (no (unknown) (unknown) Potassium 4.1 (units ( unknown) date) (3.4-5.1) mmol/L unknown) (unknown) (no (unknown) (unknown) Prescriptions: (units (unknown) date) unknown) (unknown) (no (unknown) (unknown) Previous Rx's (units ( unknown) date) unknown) (unknown) (no (unknown) (unknown) Prothrombin Time (units (unknown) date) INR Stat unknown) (unknown) (no (unknown) (unknown) 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 (unknown) (no (unknown) (unknown) Pulse Oximetry 100 (units (unknown) date) 11/21/22 15:57 unknown) (unknown) (no (unknown) (unknown) Pulse Oximetry 100 (units (unknown) date) unknown) (unknown) (no (unknown) (unknown) Pulse Rate 57 L (units (unknown) date) 11/21/22 15:57 unknown) (unknown) (no (unknown) (unknown) Pulse Rate 57 L (units (unknown) date) unknown) (unknown) (no (unknown) (unknown) RBC (4.0-5.2) (units ( unknown) date) X106/uL unknown) (unknown) (no (unknown) (unknown) RBC 4.10 (4.0-5.2) (units (unknown) date) X106/uL unknown) (unknown) (no (unknown) (unknown) RDW (11.6-14.8) % (units (unknown) date) unknown) (unknown) (no (unknown) (unknown) RDW 12.6 (units (unkno wn) date) (11.6-14.8) % unknown) (unknown) (no (unknown) (unknown) RESPONSE (units (unkno wn) date) unknown) (unknown) (no (unknown) (unknown) Referrals: (units (unk nown) date) unknown) (unknown) (no (unknown) (unknown) Related Data (units (u nknown) date) unknown) (unknown) (no (unknown) (unknown) Respiratory Rate (units (unknown) date) 16 11/21/22 15:57 unknown) (unknown) (no (unknown) (unknown) Respiratory Rate (units (unknown) date) 16 unknown) (unknown) (no (unknown) (unknown) Rx Instructions: (units (unknown) date) unknown) (unknown) (no (unknown) (unknown) SARS-CoV-2 (PCR) (units (unknown) date) (Negative) unknown) (unknown) (no (unknown) (unknown) SARS-CoV-2 (PCR) (units (unknown) date) Negative (Negative) unknown) (unknown) (no (unknown) (unknown) See Rx (units (unkno wn) date) Instructions .ROUTE unknown) .COMPLEX Qty: 180 0RF (unknown) (no (unknown) (unknown) See Rx (units (unkno wn) date) Instructions .ROUTE unknown) .COMPLEX Qty: 2 0RF (unknown) (no (unknown) (unknown) See Rx (units (unkno wn) date) Instructions PO unknown) BEDTIME Qty: 45 2RF (unknown) (no (unknown) (unknown) Signed By: (units (unk nown) date) unknown) (unknown) (no (unknown) (unknown) Smoking Status: (units (unknown) date) Former smoker unknown) (unknown) (no (unknown) (unknown) Social History (units (unknown) date) (Reviewed 05/05/22 unknown) @ 21:08 by Vargas Hill MD) (unknown) (no (unknown) (unknown) Sodium (137-145) (units (unknown) date) mmol/L unknown) (unknown) (no (unknown) (unknown) Sodium 136 L (units (u nknown) date) (137-145) mmol/L unknown) (unknown) (no (unknown) (unknown) Source: patient (units (unknown) date) and EMS unknown) (unknown) (no (unknown) (unknown) Stated complaint: (units (unknown) date) syncope/ lac unknown) forehead/? shoulder dislocation (unknown) (no (unknown) (unknown) Status post (units [...] and unknown) adenoidectomy (unknown) (no (unknown) (unknown) Stop: 11/21/22 (units (unknown) date) 16:13 unknown) (unknown) (no (unknown) (unknown) Stop: 11/21/22 (units (unknown) date) 17:26 unknown) (unknown) (no (unknown) (unknown) Substance Use (units ( unknown) date) Type: does not use unknown) (unknown) (no (unknown) (unknown) Surgical History (units (unknown) date) (Reviewed 05/05/22 unknown) @ 21:08 by Vargas Hill MD) (unknown) (no (unknown) (unknown) TAKE 2 TABLETS BY (units (unknown) date) MOUTH AT BEDTIME unknown) NEEDED FOR INSOMNIA (unknown) (no (unknown) (unknown) Take 1 tab p.o. at (units (unknown) date) HS. May take 1/2 unknown) tab p.o. during the day for anxiety (unknown) (no (unknown) (unknown) Temperature 98.1 F (units (unknown) date) 11/21/22 15:57 unknown) (unknown) (no (unknown) (unknown) Temperature 98.1 F (units (unknown) date) unknown) (unknown) (no (unknown) (unknown) Time Seen by (units (u nknown) date) Provider: 11/21/22 unknown) 16:12 (unknown) (no (unknown) (unknown) Total Bilirubin (units (unknown) date) (0.2-1.3) mg/dL unknown) (unknown) (no (unknown) (unknown) Total Bilirubin (units (unknown) date) 0.6 (0.2-1.3) mg/dL unknown) (unknown) (no (unknown) (unknown) Total Creatine (units (unknown) date) Kinase (30-135) U/L unknown) (unknown) (no (unknown) (unknown) Total Creatine (units (unknown) date) Kinase 59 (30-135) unknown) U/L (unknown) (no (unknown) (unknown) Total Protein (units ( unknown) date) (6.3-8.2) g/dL unknown) (unknown) (no (unknown) (unknown) Total Protein 6.7 (units (unknown) date) (6.3-8.2) g/dL unknown) (unknown) (no (unknown) (unknown) Troponin + CK (units ( unknown) date) Cardiac Panel Stat unknown) (unknown) (no (unknown) (unknown) Troponin I < 0.012 (units (unknown) date) (0.01-0.034) ng/mL unknown) (unknown) (no (unknown) (unknown) Troponin I (units (unk nown) date) (0.01-0.034) ng/mL unknown) (unknown) (no (unknown) (unknown) Type and Screen (units (unknown) date) Stat unknown) (unknown) (no (unknown) (unknown) Vital Signs - 8 hr (units (unknown) date) unknown) (unknown) (no (unknown) (unknown) Vital Signs (units (un known) date) unknown) (unknown) (no (unknown) (unknown) Vital signs: (units (u nknown) date) unknown) (unknown) (no (unknown) (unknown) WBC (4.5-11.0) (units (unknown) date) X103/uL unknown) (unknown) (no (unknown) (unknown) WBC 5.0 (4.5-11.0) (units (unknown) date) X103/uL unknown) (unknown) (no (unknown) (unknown) Christi Johnson (units (unknown) date) L, DNP, [employer] unknown) [Primary Care Provider] (unknown) (no (unknown) (unknown) XR chest 1V Stat (units (unknown) date) unknown) (unknown) (no (unknown) (unknown) XR elbow LT min 3V (units (unknown) date) Stat unknown) (unknown) (no (unknown) (unknown) XR shoulder LT min (units (unknown) date) 2V Stat unknown) (unknown) (no (unknown) (unknown) [Embedded Image (units (unknown) date) Not Available] unknown) (unknown) (no (unknown) (unknown) [From BACTRIM] (units (unknown) date) unknown) (unknown) (no (unknown) (unknown) [IODINATED (units (unk nown) date) CONTRAST MEDIA unknown) (unknown) (no (unknown) (unknown) [METOCLOPRAMIDE] (units (unknown) date) unknown) (unknown) (no (unknown) (unknown) [SHELLFISH (units (unk nown) date) DERIVED] unknown) (unknown) (no (unknown) (unknown) adhesive (units (unkno wn) date) [ADHESIVE] Allergy unknown) Mild Verified 11/21/22 16:09 (unknown) (no (unknown) (unknown) alcohol intake (units (unknown) date) frequency: unknown) holidays/special occasions only (unknown) (no (unknown) (unknown) amoxicillin (units (un known) date) [AMOXICILLIN] unknown) Allergy Mild Verified 11/21/22 16:09 (unknown) (no (unknown) (unknown) apply to single (units (unknown) date) elbow, wrist or unknown) hand; for hand includes palm/fingers/back of (unknown) (no (unknown) (unknown) cephalexin (units (unk nown) date) [CEPHALEXIN] unknown) Allergy Unknown Verified 11/21/22 16:09 (unknown) (no (unknown) (unknown) ciprofloxacin (units ( unknown) date) [CIPROFLOXACIN] unknown) Allergy Unknown Verified 11/21/22 16:09 (unknown) (no (unknown) (unknown) clindamycin (units (un known) date) [CLINDAMYCIN] unknown) Allergy Unknown Verified 11/21/22 16:09 (unknown) (no (unknown) (unknown) diazepam 10 mg (units (unknown) date) tablet 10 mg PO QID unknown) #120 tabs 10/12/21 (unknown) (no (unknown) (unknown) diazepam 10 mg (units (unknown) date) tablet unknown) (unknown) (no (unknown) (unknown) diazepam 5 mg (units ( unknown) date) tablet (Valium) 5 unknown) mg PO TID PRN muscle spasm #10 10/19/21 (unknown) (no (unknown) (unknown) diazepam [Valium] (units (unknown) date) 5 mg tablet unknown) (unknown) (no (unknown) (unknown) diclofenac sodium (units (unknown) date) 1 % gel unknown) (unknown) (no (unknown) (unknown) diclofenac sodium (units (unknown) date) 1 % topical gel 2 g unknown) topical QID #100 grams 05/05/22 (unknown) (no (unknown) (unknown) doxycycline (units (un known) date) [DOXYCYCLINE] unknown) Allergy Mild Verified 11/21/22 16:09 (unknown) (no (unknown) (unknown) epinephrine 0.3 (units (unknown) date) mg/0.3 mL See Rx unknown) Instructions .Route 02/27/22 (unknown) (no (unknown) (unknown) epinephrine 0.3 (units (unknown) date) mg/0.3 mL unknown) auto-injector (unknown) (no (unknown) (unknown) hand (units (unkno wn) date) unknown) (unknown) (no (unknown) (unknown) household members: (units (unknown) date) spouse and children unknown) (unknown) (no (unknown) (unknown) hydrocodone (units (un known) date) Allergy Mild rash unknown) Verified 11/21/22 16:09 (unknown) (no (unknown) (unknown) injection, (units (unk nown) date) auto-injector unknown) .COMPLEX #2 ea (unknown) (no (unknown) (unknown) iodine [IODINE] (units (unknown) date) Allergy Mild unknown) Verified 11/21/22 16:09 (unknown) (no (unknown) (unknown) lamotrigine 200 mg (units (unknown) date) tablet 200 mg PO unknown) DAILY #30 tabs 01/18/22 (unknown) (no (unknown) (unknown) lamotrigine 200 mg (units (unknown) date) tablet unknown) (unknown) (no (unknown) (unknown) latex [LATEX] (units ( unknown) date) Allergy Unknown unknown) Verified 11/21/22 16:09 (unknown) (no (unknown) (unknown) lidocaine AdvReac (units (unknown) date) Palpitation unknown) Verified 11/21/22 16:09 (unknown) (no (unknown) (unknown) lives (units (unkno wn) date) independently: Yes unknown) (unknown) (no (unknown) (unknown) marital status: (units (unknown) date) unknown) (unknown) (no (unknown) (unknown) metformin 500 mg (units (unknown) date) tablet 500 mg PO unknown) BID #60 tabs 02/21/22 (unknown) (no (unknown) (unknown) metformin 500 mg (units (unknown) date) tablet unknown) (unknown) (no (unknown) (unknown) metoclopramide (units (unknown) date) Allergy Mild unknown) Verified 11/21/22 16:09 (unknown) (no (unknown) (unknown) mg tablet (units (unkn own) date) (Percocet) unknown) (unknown) (no (unknown) (unknown) occupational (units (u nknown) date) status: employed unknown) (unknown) (no (unknown) (unknown) oxycodone 10 mg (units (unknown) date) tablet 5 mg PO Q6H unknown) PRN pain #14 tabs 05/05/22 (unknown) (no (unknown) (unknown) oxycodone 10 mg (units (unknown) date) tablet unknown) (unknown) (no (unknown) (unknown) oxycodone-acetamin (units (unknown) date) ophen 5 mg-325 1 unknown) tab PO Q8H PRN pain #6 tabs 04/22/22 (unknown) (no (unknown) (unknown) oxycodone-acetamin (units (unknown) date) ophen [Percocet] unknown) 5-325 mg tablet (unknown) (no (unknown) (unknown) quetiapine 100 mg (units (unknown) date) tablet 100 mg PO unknown) BEDTIME 02/27/22 02/27/22 (unknown) (no (unknown) (unknown) quetiapine 100 mg (units (unknown) date) tablet unknown) (unknown) (no (unknown) (unknown) quetiapine 25 mg (units (unknown) date) tablet See Rx unknown) Instructions PO BEDTIME #45 01/18/22 (unknown) (no (unknown) (unknown) quetiapine 25 mg (units (unknown) date) tablet unknown) (unknown) (no (unknown) (unknown) received per (units (u nknown) date) another provider. unknown) (unknown) (no (unknown) (unknown) s (units (unkno wn) date) unknown) (unknown) (no (unknown) (unknown) sertraline 100 mg (units (unknown) date) tablet 200 mg PO unknown) DAILY #60 tabs 01/18/22 (unknown) (no (unknown) (unknown) sertraline 100 mg (units (unknown) date) tablet unknown) (unknown) (no (unknown) (unknown) shellfish derived (units (unknown) date) Allergy Severe unknown) ANAPHYLAXIS Verified 11/21/22 16:09 (unknown) (no (unknown) (unknown) sulfamethoxazole (units (unknown) date) Allergy Mild RASH unknown) Verified 11/21/22 16:09 (unknown) (no (unknown) (unknown) tabs (units (unkno wn) date) unknown) (unknown) (no (unknown) (unknown) tobacco type: (units ( unknown) date) vaping unknown) (unknown) (no (unknown) (unknown) tramadol 50 mg (units (unknown) date) tablet 100 mg PO unknown) BID PRN severe pain 03/22/22 (unknown) (no (unknown) (unknown) tramadol 50 mg (units (unknown) date) tablet unknown) (unknown) (no (unknown) (unknown) trazodone 100 mg (units (unknown) date) tablet See Rx unknown) Instructions .Route 11/20/21 (unknown) (no (unknown) (unknown) trazodone 100 mg (units (unknown) date) tablet unknown) (unknown) (no (unknown) (unknown) trimethoprim [From (units (unknown) date) BACTRIM] Allergy unknown) Mild RASH Verified 11/21/22 16:09 Result panel 365 (unknown) (no (unknown) (unknown) (no value) (units (unk nown) date) unknown) (unknown) (no (unknown) (unknown) <Electronically (units (unknown) date) signed by Shai Baron D.O.> (unknown) (no (unknown) (unknown) (scale score 7-10) (units (unknown) date) #60 tabs unknown) (unknown) (no (unknown) (unknown) *If you do not (units (unknown) date) have a primary care unknown) provider please contact the [facility] (unknown) (no (unknown) (unknown) *Please continue (units (unknown) date) to take your unknown) regular medications as directed. (unknown) (no (unknown) (unknown) *Please follow up (units (unknown) date) with your primary unknown) care provider in 2-3 days, call for an (unknown) (no (unknown) (unknown) *Return to (units (unk nown) date) Emergency unknown) Department if you should have any new, worsening or (unknown) (no (unknown) (unknown) *What to do: (units (u nknown) date) unknown) (unknown) (no (unknown) (unknown) *You have been (units (unknown) date) diagnosed with unknown) [shoulder separation, minor forehead abrasion, (unknown) (no (unknown) (unknown) .COMPLEX #180 tabs (units (unknown) date) unknown) (unknown) (no (unknown) (unknown) 11/21/22 11/21/22 (units (unknown) date) 11/21/22 unknown) Range/Units (unknown) (no (unknown) (unknown) 11/21/22 11/21/22 (units (unknown) date) Range/Units unknown) (unknown) (no (unknown) (unknown) 11/21/22 16:15 (units (unknown) date) unknown) (unknown) (no (unknown) (unknown) 11/21/22 (units (unkno wn) date) unknown) (unknown) (no (unknown) (unknown) 11/22/22 2158 (units ( unknown) date) unknown) (unknown) (no (unknown) (unknown) 1 tab PO Q8H PRN (units (unknown) date) (Reason: pain) Qty: unknown) 6 0RF (unknown) (no (unknown) (unknown) 10 mg PO QID Qty: (units (unknown) date) 120 2RF unknown) (unknown) (no (unknown) (unknown) 100 mg PO BEDTIME (units (unknown) date) unknown) (unknown) (no (unknown) (unknown) 100 mg PO BID PRN (units (unknown) date) (Reason: severe unknown) pain (scale score 7-10)) Qty: 60 0RF (unknown) (no (unknown) (unknown) 12 point review of (units (unknown) date) systems is negative unknown) except for those stated above (unknown) (no (unknown) (unknown) 15:57 (units (unkno wn) date) unknown) (unknown) (no (unknown) (unknown) 16:15 16:15 16:15 (units (unknown) date) unknown) (unknown) (no (unknown) (unknown) 16:15 16:15 (units (un known) date) unknown) (unknown) (no (unknown) (unknown) 2 g topical QID (units (unknown) date) Qty: 100 3RF unknown) (unknown) (no (unknown) (unknown) 200 mg PO DAILY (units (unknown) date) Qty: 30 2RF unknown) (unknown) (no (unknown) (unknown) 200 mg PO DAILY (units (unknown) date) Qty: 60 2RF unknown) (unknown) (no (unknown) (unknown) 27-year-old former (units (unknown) date) smoker with history unknown) of seizures, epigastric pain, frequent (unknown) (no (unknown) (unknown) 5 mg PO Q6H PRN (units (unknown) date) (Reason: pain) Qty: unknown) 14 0RF (unknown) (no (unknown) (unknown) 5 mg PO TID PRN (units (unknown) date) (Reason: muscle unknown) spasm) Qty: 10 0RF (unknown) (no (unknown) (unknown) 500 mg PO BID Qty: (units (unknown) date) 60 0RF unknown) (unknown) (no (unknown) (unknown) : [id number] (units (u nknown) date) unknown) (unknown) (no (unknown) (unknown) ALT (<35) IU/L (units (unknown) date) unknown) (unknown) (no (unknown) (unknown) ALT 15 (<35) IU/L (units (unknown) date) unknown) (unknown) (no (unknown) (unknown) APTT (26-36) (units (u nknown) date) SECONDS unknown) (unknown) (no (unknown) (unknown) APTT 26 (26-36) (units (unknown) date) SECONDS unknown) (unknown) (no (unknown) (unknown) AST (14-36) IU/L (units (unknown) date) unknown) (unknown) (no (unknown) (unknown) AST 17 (14-36) (units (unknown) date) IU/L unknown) (unknown) (no (unknown) (unknown) Activity (units (unkno wn) date) Restrictions/Additi unknown) onal Instructions: (unknown) (no (unknown) (unknown) Age/Sex: 27 / F (units (unknown) date) unknown) (unknown) (no (unknown) (unknown) Albumin (3.5-5.0) (units (unknown) date) g/dL unknown) (unknown) (no (unknown) (unknown) Albumin 4.1 (units (un known) date) (3.5-5.0) g/dL unknown) (unknown) (no (unknown) (unknown) Albumin/Globulin (units (unknown) date) Ratio (1.0-2.8) unknown) (unknown) (no (unknown) (unknown) Albumin/Globulin (units (unknown) date) Ratio 1.6 (1.0-2.8) unknown) (unknown) (no (unknown) (unknown) Alkaline (units (unkno wn) date) Phosphatase unknown) (38-126) U/L (unknown) (no (unknown) (unknown) Alkaline (units (unkno wn) date) Phosphatase 37 L unknown) (38-126) U/L (unknown) (no (unknown) (unknown) Allergies (units (unkn own) date) unknown) (unknown) (no (unknown) (unknown) Allergy/AdvReac (units (unknown) date) Type Severity unknown) Reaction Status Date / Time (unknown) (no (unknown) (unknown) BACK: Nontender (units (unknown) date) without deformity unknown) or crepitance. No flank tenderness. (unknown) (no (unknown) (unknown) 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 (unknown) (no (unknown) (unknown) BUN (7-17) mg/dL (units (unknown) date) unknown) (unknown) (no (unknown) (unknown) BUN 18 H (7-17) (units (unknown) date) mg/dL unknown) (unknown) (no (unknown) (unknown) BUN/Creatinine (units (unknown) date) Ratio (6-22) unknown) (unknown) (no (unknown) (unknown) BUN/Creatinine (units (unknown) date) Ratio 20.9 (6-22) unknown) (unknown) (no (unknown) (unknown) Baso # (Auto) (units ( unknown) date) (0-100) /uL unknown) (unknown) (no (unknown) (unknown) Baso # (Auto) 0 (units (unknown) date) (0-100) /uL unknown) (unknown) (no (unknown) (unknown) Baso % (Auto) (units ( unknown) date) (0-2) % unknown) (unknown) (no (unknown) (unknown) Baso % (Auto) 0.4 (units (unknown) date) (0-2) % unknown) (unknown) (no (unknown) (unknown) Blood Pressure (units (unknown) date) 123/68 11/21/22 unknown) 15:57 (unknown) (no (unknown) (unknown) Blood Pressure (units (unknown) date) 123/68 unknown) (unknown) (no (unknown) (unknown) Breast cancer (units ( unknown) date) unknown) (unknown) (no (unknown) (unknown) CAD (coronary (units ( unknown) date) artery disease) unknown) (unknown) (no (unknown) (unknown) CARDIOVASCULAR: (units (unknown) date) Regular rate and unknown) rhythm without murmurs, gallops, or rubs. (unknown) (no (unknown) (unknown) CARDIOVASCULAR: (units (unknown) date) See HPI unknown) (unknown) (no (unknown) (unknown) CC: 27-year-old (units (unknown) date) female with unknown) extensive medical history presents with syncope (unknown) (no (unknown) (unknown) CK-MB (CK-2) Rel (units (unknown) date) Index TNP unknown) (unknown) (no (unknown) (unknown) CK-MB (CK-2) Rel (units (unknown) date) Index unknown) (unknown) (no (unknown) (unknown) CK-MB (CK-2) TNP (units (unknown) date) unknown) (unknown) (no (unknown) (unknown) CK-MB (CK-2) (units (u nknown) date) unknown) (unknown) (no (unknown) (unknown) Calcium (8.4-10.2) (units (unknown) date) mg/dL unknown) (unknown) (no (unknown) (unknown) Calcium 8.7 (units (un known) date) (8.4-10.2) mg/dL unknown) (unknown) (no (unknown) (unknown) Carbon Dioxide (units (unknown) date) (22-32) mmol/L unknown) (unknown) (no (unknown) (unknown) Carbon Dioxide 29 (units (unknown) date) (22-32) mmol/L unknown) (unknown) (no (unknown) (unknown) Chief complaint: (units (unknown) date) Syncope unknown) (unknown) (no (unknown) (unknown) Chloride (98-107) (units (unknown) date) mmol/L unknown) (unknown) (no (unknown) (unknown) Chloride 101 (units (u nknown) date) (98-107) mmol/L unknown) (unknown) (no (unknown) (unknown) Clinical (units (unkno wn) date) Impression: unknown) (unknown) (no (unknown) (unknown) Complicating (units (u nknown) date) co-morbidities: unknown) Seizures, GI complaints, GI bleed (unknown) (no (unknown) (unknown) Contract void and (units (unknown) date) provider will offer unknown) no further tramadol refills if tramadol (unknown) (no (unknown) (unknown) Course (units (unkno wn) date) unknown) (unknown) (no (unknown) (unknown) Creatinine (units (unk nown) date) (0.52-1.04) mg/dL unknown) (unknown) (no (unknown) (unknown) Creatinine 0.86 (units (unknown) date) (0.52-1.04) mg/dL unknown) (unknown) (no (unknown) (unknown) : 1995 (units (unknown) date) Acct:[id number] unknown) (unknown) (no (unknown) (unknown) Data collected (units (unknown) date) from: Patient unknown) (unknown) (no (unknown) (unknown) Date of Service: (units (unknown) date) 11/21/22 unknown) (unknown) (no (unknown) (unknown) Departure (units (unkn own) date) unknown) (unknown) (no (unknown) (unknown) Differential (units (u nknown) date) considered, but not unknown) limited to: Syncope versus near-syncope versus (unknown) (no (unknown) (unknown) Discharge Plan (units (unknown) date) unknown) (unknown) (no (unknown) (unknown) Discontinued (units (u nknown) date) Medications unknown) (unknown) (no (unknown) (unknown) Discussion: (units (un known) date) Patient with unknown) reported bloody vomit, syncopal episode had head (unknown) (no (unknown) (unknown) Disposition: see (units (unknown) date) below, along with unknown) detailed discharge instructions that have (unknown) (no (unknown) (unknown) Documented By: GC (units (unknown) date) unknown) (unknown) (no (unknown) (unknown) Documented By: MLM (units (unknown) date) unknown) (unknown) (no (unknown) (unknown) Dose Instruction: (units (unknown) date) unknown) (unknown) (no (unknown) (unknown) ENT: Nose without (units (unknown) date) bleeding, purulent unknown) drainage. No nasal septal hematoma Throat (unknown) (no (unknown) (unknown) ER Physician: (units ( unknown) date) Shai Baron D.O. unknown) (unknown) (no (unknown) (unknown) EXTREMITIES: (units (u nknown) date) Tender to left unknown) anterior lateral shoulder, worse with range of (unknown) (no (unknown) (unknown) EYES: Pupils equal (units (unknown) date) round and reactive. unknown) No hyphema Extraocular motions intact. (unknown) (no (unknown) (unknown) Emergency Report (units (unknown) date) unknown) (unknown) (no (unknown) (unknown) Endometriosis (units ( unknown) date) unknown) (unknown) (no (unknown) (unknown) Eos # (Auto) (units (u nknown) date) (0-450) /uL unknown) (unknown) (no (unknown) (unknown) Eos # (Auto) 100 (units (unknown) date) (0-450) /uL unknown) (unknown) (no (unknown) (unknown) Eos % (Auto) (2-4) (units (unknown) date) % unknown) (unknown) (no (unknown) (unknown) Eos % (Auto) 1.8 L (units (unknown) date) (2-4) % unknown) (unknown) (no (unknown) (unknown) Estimated GFR > 60 (units (unknown) date) (>60) mL/min unknown) (unknown) (no (unknown) (unknown) Estimated GFR (units ( unknown) date) (>60) mL/min unknown) (unknown) (no (unknown) (unknown) Exam Narrative: (units (unknown) date) unknown) (unknown) (no (unknown) (unknown) Exam documented (units (unknown) date) above, pertinent unknown) findings include: Superficial abrasion and (unknown) (no (unknown) (unknown) Exam (units (unkno wn) date) unknown) (unknown) (no (unknown) (unknown) Family History (units (unknown) date) (Reviewed 11/22/22 unknown) @ 21:53 by Shai Baron DO) (unknown) (no (unknown) (unknown) GASTROINTESTINAL: (units (unknown) date) Abdomen soft, unknown) non-tender, nondistended. (unknown) (no (unknown) (unknown) GASTROINTESTINAL: (units (unknown) date) Denies nausea, unknown) vomiting, abdominal pain, diarrhea, (unknown) (no (unknown) (unknown) GENERAL: See HPI (units (unknown) date) unknown) (unknown) (no (unknown) (unknown) GENERAL: [27] year (units (unknown) date) old patient appears unknown) stated age. Well-developed patient, in (unknown) (no (unknown) (unknown) : Denies (units (unk nown) date) dysuria, frequency, unknown) incontinence, hematuria, urinary retention. (unknown) (no (unknown) (unknown) General (units (unkno wn) date) unknown) (unknown) (no (unknown) (unknown) Globulin (1.7-4.1) (units (unknown) date) g/dL unknown) (unknown) (no (unknown) (unknown) Globulin 2.6 (units (u nknown) date) (1.7-4.1) g/dL unknown) (unknown) (no (unknown) (unknown) Glucose (70-100) (units (unknown) date) mg/dL unknown) (unknown) (no (unknown) (unknown) Glucose 81 (units (unk nown) date) (70-100) mg/dL unknown) (unknown) (no (unknown) (unknown) Grandmother (units (un known) date) Ovarian unknown) cancer (unknown) (no (unknown) (unknown) H/O unilateral (units (unknown) date) oophorectomy unknown) () (unknown) (no (unknown) (unknown) H/O: hysterectomy (units (unknown) date) unknown) (unknown) (no (unknown) (unknown) HEAD: Small (units (un known) date) vertically oriented unknown) superficial abrasion and central forehead, no (unknown) (no (unknown) (unknown) HEENT: Denies (units ( unknown) date) sinus pain, ear unknown) pain, sore throat, difficulty swallowing, (unknown) (no (unknown) (unknown) HPI - General (units ( unknown) date) Adult unknown) (unknown) (no (unknown) (unknown) HPI narrative: (units (unknown) date) unknown) (unknown) (no (unknown) (unknown) Hct (36-46) % (units ( unknown) date) unknown) (unknown) (no (unknown) (unknown) Hct 36.7 (36-46) % (units (unknown) date) unknown) (unknown) (no (unknown) (unknown) Hematuria (units (unkn own) date) unknown) (unknown) (no (unknown) (unknown) Hgb (12.0-16.0) (units (unknown) date) g/dL unknown) (unknown) (no (unknown) (unknown) Hgb 12.6 (units (unkno wn) date) (12.0-16.0) g/dL unknown) (unknown) (no (unknown) (unknown) History of Present (units (unknown) date) Illness unknown) (unknown) (no (unknown) (unknown) History of ureter (units (unknown) date) stent unknown) (unknown) (no (unknown) (unknown) Hold Instructions: [...] FOR ANAPHYLAXIS UNTIL (unknown) (no (unknown) (unknown) INR (0.9-1.3) (units ( unknown) date) unknown) (unknown) (no (unknown) (unknown) INR 1.0 (0.9-1.3) (units (unknown) date) unknown) (unknown) (no (unknown) (unknown) IV DYE] (units (unkno wn) date) unknown) (unknown) (no (unknown) (unknown) Imaging studies (units (unknown) date) independently unknown) reviewed: CT of head and C-spine without (unknown) (no (unknown) (unknown) Independently (units ( unknown) date) reviewed EKG as unknown) above (unknown) (no (unknown) (unknown) Initial Vital (units ( unknown) date) Signs unknown) (unknown) (no (unknown) (unknown) Initial Vital (units ( unknown) date) Signs: unknown) (unknown) (no (unknown) (unknown) Instructions: DI (units (unknown) date) for Shoulder Pain, unknown) DI for Vomiting -- Adult (unknown) (no (unknown) (unknown) Iodinated Contrast (units (unknown) date) Media Allergy unknown) Unknown Verified 11/21/22 16:09 (unknown) (no (unknown) (unknown) [facility] (units (unknown) date) [address] [place] [address] unknown) [place] [address] (unknown) (no (unknown) (unknown) Lab Data (units (unkno wn) date) unknown) (unknown) (no (unknown) (unknown) Lab Results (units (un known) date) unknown) (unknown) (no (unknown) (unknown) Lab Test results (units (unknown) date) independently unknown) reviewed as above. Pertinent findings: No (unknown) (no (unknown) (unknown) Labs: (units (unkno wn) date) unknown) (unknown) (no (unknown) (unknown) Lactate (0.7-2.1) (units (unknown) date) mmol/L unknown) (unknown) (no (unknown) (unknown) Lactate 0.8 (units (un known) date) (0.7-2.1) mmol/L unknown) (unknown) (no (unknown) (unknown) Last Admin: (units (un known) date) 11/21/22 16:50 unknown) Dose: 40 mg (unknown) (no (unknown) (unknown) Last Admin: (units (un known) date) 11/21/22 17:45 unknown) Dose: 2 tab (unknown) (no (unknown) (unknown) Last Admin: (units (un known) date) 11/21/22 20:39 unknown) Dose: 1 tab (unknown) (no (unknown) (unknown) Last Admin: (units (un known) date) 11/21/22 20:40 unknown) Dose: 1 bottle (unknown) (no (unknown) (unknown) Limit as possible. (units (unknown) date) Prescribed per 03/21 unknown) signed pain management contract. (unknown) (no (unknown) (unknown) Lipase (23-300) (units (unknown) date) U/L unknown) (unknown) (no (unknown) (unknown) Lipase 98 (23-300) (units (unknown) date) U/L unknown) (unknown) (no (unknown) (unknown) Lymph # (Auto) (units (unknown) date) ([id number]) /uL unknown) (unknown) (no (unknown) (unknown) Lymph # (Auto) (units (unknown) date) 2200 ([phone]) unknown) /uL (unknown) (no (unknown) (unknown) Lymph % (Auto) (units (unknown) date) (25-40) % unknown) (unknown) (no (unknown) (unknown) Lymph % (Auto) (units (unknown) date) 43.6 H (25-40) % unknown) (unknown) (no (unknown) (unknown) MCH (26-34) PG (units (unknown) date) unknown) (unknown) (no (unknown) (unknown) MCH 30.9 (26-34) (units (unknown) date) PG unknown) (unknown) (no (unknown) (unknown) MCHC (30-36) % (units (unknown) date) unknown) (unknown) (no (unknown) (unknown) MCHC 34.5 (30-36) (units (unknown) date) % unknown) (unknown) (no (unknown) (unknown) MCV (80-100) fL (units (unknown) date) unknown) (unknown) (no (unknown) (unknown) MCV 89.6 (80-100) (units (unknown) date) fL unknown) (unknown) (no (unknown) (unknown) MDM Narrative (units ( unknown) date) unknown) (unknown) (no (unknown) (unknown) MUSCULOSKELETAL: (units (unknown) date) denies weakness, unknown) joint pain, or bony pain (unknown) (no (unknown) (unknown) Magnesium (units (unkn own) date) (1.6-2.3) mg/dL unknown) (unknown) (no (unknown) (unknown) Magnesium 1.9 (units ( unknown) date) (1.6-2.3) mg/dL unknown) (unknown) (no (unknown) (unknown) Major depressive (units (unknown) date) disorder unknown) (unknown) (no (unknown) (unknown) Medical Decision (units (unknown) date) Making unknown) (unknown) (no (unknown) (unknown) Medical History (units (unknown) date) (Reviewed 11/22/22 unknown) @ 21:53 by Shai Baron DO) (unknown) (no (unknown) (unknown) Medical decision (units (unknown) date) making narrative: unknown) (unknown) (no (unknown) (unknown) Medical records (units (unknown) date) reviewed: Prior unknown) notes reviewed in our EMR (unknown) (no (unknown) (unknown) Medication (units (unk nown) date) Instructions unknown) Recorded Confirmed (unknown) (no (unknown) (unknown) Medication (units (unk nown) date) Instructions unknown) Recorded (unknown) (no (unknown) (unknown) Mode of arrival: (units (unknown) date) EMS unknown) (unknown) (no (unknown) (unknown) [place] # (Auto) (units ( unknown) date) (0-900) /uL unknown) (unknown) (no (unknown) (unknown) [place] # (Auto) 500 (units (unknown) date) (0-900) /uL unknown) (unknown) (no (unknown) (unknown) [place] % (Auto) (units ( unknown) date) (3-14) % unknown) (unknown) (no (unknown) (unknown) [place] % (Auto) 9.4 (units (unknown) date) (3-14) % unknown) (unknown) (no (unknown) (unknown) Morbid obesity (units (unknown) date) unknown) (unknown) (no (unknown) (unknown) 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 unknown) (unknown) (no (unknown) (unknown) NECK: Trachea (units ( unknown) date) midline. Non unknown) tender, no step-offs or crepitance (unknown) (no (unknown) (unknown) NEURO: AOx3. (units (u nknown) date) unknown) (unknown) (no (unknown) (unknown) NEUROLOGIC: See (units (unknown) date) HPI unknown) (unknown) (no (unknown) (unknown) Narrative (units (unkn own) date) unknown) (unknown) (no (unknown) (unknown) Narrative: (units (unk nown) date) unknown) (unknown) (no (unknown) (unknown) Nephrolithiasis (units (unknown) date) (-2018) unknown) (unknown) (no (unknown) (unknown) Neut # (Auto) (units ( unknown) date) (0064-9763) /uL unknown) (unknown) (no (unknown) (unknown) Neut # (Auto) 2300 (units (unknown) date) (5267-5129) /uL unknown) (unknown) (no (unknown) (unknown) Neut % (Auto) (units ( unknown) date) (50-75) % unknown) (unknown) (no (unknown) (unknown) Neut % (Auto) 44.8 (units (unknown) date) L (50-75) % unknown) (unknown) (no (unknown) (unknown) No Action (units (unkn own) date) unknown) (unknown) (no (unknown) (unknown) No scleral (units (unk nown) date) icterus. No unknown) injection or drainage. (unknown) (no (unknown) (unknown) Ondansetron HCl (units (unknown) date) (Ondansetron 4 Mg unknown) Odt Prepack) 1 bottle MISC SEEINSTR ONE (unknown) (no (unknown) (unknown) Ordered: (units (unkno wn) date) unknown) (unknown) (no (unknown) (unknown) Orders (units (unkno wn) date) unknown) (unknown) (no (unknown) (unknown) Ovarian cyst (units (u nknown) date) unknown) (unknown) (no (unknown) (unknown) Oxycodone/Acetamin (units (unknown) date) ophen unknown) (Oxycodone/Acetamin ophen 5/325 Tablet) 1 tab PO NOW ONE (unknown) (no (unknown) (unknown) Oxycodone/Acetamin (units (unknown) date) ophen unknown) (Oxycodone/Acetamin ophen 5/325 Tablet) 2 tab PO NOW ONE (unknown) (no (unknown) (unknown) Oxygen Delivery (units (unknown) date) Method Room Air unknown) 11/21/22 15:57 (unknown) (no (unknown) (unknown) Oxygen Delivery (units (unknown) date) Method Room Air unknown) (unknown) (no (unknown) (unknown) PCOS (polycystic (units (unknown) date) ovarian syndrome) unknown) (unknown) (no (unknown) (unknown) PSYCHIATRIC: No (units (unknown) date) concerning unknown) psychosocial issues. (unknown) (no (unknown) (unknown) PT (10.1-12.7) (units (unknown) date) SECONDS unknown) (unknown) (no (unknown) (unknown) PT 12.0 (units (unkno wn) date) (10.1-12.7) SECONDS unknown) (unknown) (no (unknown) (unknown) Pantoprazole (units (u nknown) date) Sodium unknown) (Pantoprazole 40 Mg Vial) 40 mg IV NOW ONE (unknown) (no (unknown) (unknown) Patellar (units (unkno wn) date) dislocation unknown) (unknown) (no (unknown) (unknown) Patient (units (unkno wn) date) Disposition: Home unknown) (unknown) (no (unknown) (unknown) Patient History (units (unknown) date) unknown) (unknown) (no (unknown) (unknown) Patient: (units (unkno wn) date) Eileen Jorgensen unknown) M MR# (unknown) (no (unknown) (unknown) Pelvic congestion (units (unknown) date) (2013) unknown) (unknown) (no (unknown) (unknown) Penicillins (units (un known) date) [PENICILLINS] unknown) Allergy Mild Verified 11/21/22 16:09 (unknown) (no (unknown) (unknown) Plt Count (units (unkn own) date) (150-400) X103/uL unknown) (unknown) (no (unknown) (unknown) Plt Count 197 (units ( unknown) date) (150-400) X103/uL unknown) (unknown) (no (unknown) (unknown) Potassium (units (unkn own) date) (3.4-5.1) mmol/L unknown) (unknown) (no (unknown) (unknown) Potassium 4.1 (units ( unknown) date) (3.4-5.1) mmol/L unknown) (unknown) (no (unknown) (unknown) Prescriptions: (units (unknown) date) unknown) (unknown) (no (unknown) (unknown) Previous Rx's (units ( unknown) date) unknown) (unknown) (no (unknown) (unknown) 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 (unknown) (no (unknown) (unknown) Pulse Oximetry 100 (units (unknown) date) 11/21/22 15:57 unknown) (unknown) (no (unknown) (unknown) Pulse Oximetry 100 (units (unknown) date) unknown) (unknown) (no (unknown) (unknown) Pulse Rate 57 L (units (unknown) date) 11/21/22 15:57 unknown) (unknown) (no (unknown) (unknown) Pulse Rate 57 L (units (unknown) date) unknown) (unknown) (no (unknown) (unknown) RBC (4.0-5.2) (units ( unknown) date) X106/uL unknown) (unknown) (no (unknown) (unknown) RBC 4.10 (4.0-5.2) (units (unknown) date) X106/uL unknown) (unknown) (no (unknown) (unknown) RDW (11.6-14.8) % (units (unknown) date) unknown) (unknown) (no (unknown) (unknown) RDW 12.6 (units (unkno wn) date) (11.6-14.8) % unknown) (unknown) (no (unknown) (unknown) RESPIRATORY: Clear (units (unknown) date) to auscultation. unknown) Breath sounds equal bilaterally. No wheezes, (unknown) (no (unknown) (unknown) RESPIRATORY: (units (u nknown) date) Denies dyspnea, unknown) cough, wheezing, hemoptysis, sputum. (unknown) (no (unknown) (unknown) RESPONSE (units (unkno wn) date) unknown) (unknown) (no (unknown) (unknown) Re-evaluations: (units (unknown) date) Patient observed unknown) for multiple hours, significant improvement (unknown) (no (unknown) (unknown) Referrals: (units (unk nown) date) unknown) (unknown) (no (unknown) (unknown) Related Data (units (u nknown) date) unknown) (unknown) (no (unknown) (unknown) Resource line at (units (unknown) date) [phone]. They unknown) will ask some questions about your medical (unknown) (no (unknown) (unknown) Respiratory Rate (units (unknown) date) 16 11/21/22 15:57 unknown) (unknown) (no (unknown) (unknown) Respiratory Rate (units (unknown) date) 16 unknown) (unknown) (no (unknown) (unknown) Review of Systems (units (unknown) date) unknown) (unknown) (no (unknown) (unknown) Rx Instructions: (units (unknown) date) unknown) (unknown) (no (unknown) (unknown) SARS-CoV-2 (PCR) (units (unknown) date) (Negative) unknown) (unknown) (no (unknown) (unknown) SARS-CoV-2 (PCR) (units (unknown) date) Negative (Negative) unknown) (unknown) (no (unknown) (unknown) SKIN: Denies rash, (units (unknown) date) skin lesions, or unknown) other (unknown) (no (unknown) (unknown) SKIN: No rash or (units (unknown) date) erythema of visible unknown) areas (unknown) (no (unknown) (unknown) Scores Used: GCS (units (unknown) date) unknown) (unknown) (no (unknown) (unknown) See Rx (units (unkno wn) date) Instructions .ROUTE unknown) .COMPLEX Qty: 180 0RF (unknown) (no (unknown) (unknown) See Rx (units (unkno wn) date) Instructions .ROUTE unknown) .COMPLEX Qty: 2 0RF (unknown) (no (unknown) (unknown) See Rx (units (unkno wn) date) Instructions PO unknown) BEDTIME Qty: 45 2RF (unknown) (no (unknown) (unknown) Joaquin Quinn, (units (unknown) date) [Physician] unknown) (unknown) (no (unknown) (unknown) She denies any (units (unknown) date) chest pain or unknown) shortness of breath. She denies any diarrhea or (unknown) (no (unknown) (unknown) Signed By: (units (unk nown) date) unknown) (unknown) (no (unknown) (unknown) Smoking Status: (units (unknown) date) Former smoker unknown) (unknown) (no (unknown) (unknown) Social History (units (unknown) date) (Reviewed 11/22/22 unknown) @ 21:53 by Shai Baron DO) (unknown) (no (unknown) (unknown) Sodium (137-145) (units (unknown) date) mmol/L unknown) (unknown) (no (unknown) (unknown) Sodium 136 L (units (u nknown) date) (137-145) mmol/L unknown) (unknown) (no (unknown) (unknown) Source: patient (units (unknown) date) and EMS unknown) (unknown) (no (unknown) (unknown) Stand Alone Forms: (units (unknown) date) Patient Portal/API unknown) (unknown) (no (unknown) (unknown) Stated complaint: (units (unknown) date) syncope/ lac unknown) forehead/? shoulder dislocation (unknown) (no (unknown) (unknown) Status post (units [...] and unknown) adenoidectomy (unknown) (no (unknown) (unknown) Stop: 11/21/22 (units (unknown) date) 16:13 unknown) (unknown) (no (unknown) (unknown) Stop: 11/21/22 (units (unknown) date) 17:26 unknown) (unknown) (no (unknown) (unknown) Stop: 11/21/22 (units (unknown) date) 20:25 unknown) (unknown) (no (unknown) (unknown) Substance Use (units ( unknown) date) Type: does not use unknown) (unknown) (no (unknown) (unknown) Surgical History (units (unknown) date) (Reviewed 11/22/22 unknown) @ 21:53 by Shai Baron DO) (unknown) (no (unknown) (unknown) TAKE 2 TABLETS BY (units (unknown) date) MOUTH AT BEDTIME unknown) NEEDED FOR INSOMNIA (unknown) (no (unknown) (unknown) Take 1 tab p.o. at (units (unknown) date) HS. May take 1/2 unknown) tab p.o. during the day for anxiety (unknown) (no (unknown) (unknown) Temperature 98.1 F (units (unknown) date) 11/21/22 15:57 unknown) (unknown) (no (unknown) (unknown) Temperature 98.1 F (units (unknown) date) unknown) (unknown) (no (unknown) (unknown) Time Seen by (units (u nknown) date) Provider: 11/21/22 unknown) 16:12 (unknown) (no (unknown) (unknown) Total Bilirubin (units (unknown) date) (0.2-1.3) mg/dL unknown) (unknown) (no (unknown) (unknown) Total Bilirubin (units (unknown) date) 0.6 (0.2-1.3) mg/dL unknown) (unknown) (no (unknown) (unknown) Total Creatine (units (unknown) date) Kinase (30-135) U/L unknown) (unknown) (no (unknown) (unknown) Total Creatine (units (unknown) date) Kinase 59 (30-135) unknown) U/L (unknown) (no (unknown) (unknown) Total Protein (units ( unknown) date) (6.3-8.2) g/dL unknown) (unknown) (no (unknown) (unknown) Total Protein 6.7 (units (unknown) date) (6.3-8.2) g/dL unknown) (unknown) (no (unknown) (unknown) Treatments: (units (un known) date) Zofran, Percocet, unknown) Protonix (unknown) (no (unknown) (unknown) Troponin I < 0.012 (units (unknown) date) (0.01-0.034) ng/mL unknown) (unknown) (no (unknown) (unknown) Troponin I (units (unk nown) date) (0.01-0.034) ng/mL unknown) (unknown) (no (unknown) (unknown) Vital Signs - 8 hr (units (unknown) date) unknown) (unknown) (no (unknown) (unknown) Vital Signs (units (un known) date) unknown) (unknown) (no (unknown) (unknown) Vital signs: (units (u nknown) date) unknown) (unknown) (no (unknown) (unknown) Vomiting, Abrasion (units (unknown) date) of forehead, unknown) shoulder (unknown) (no (unknown) (unknown) WBC (4.5-11.0) (units (unknown) date) X103/uL unknown) (unknown) (no (unknown) (unknown) WBC 5.0 (4.5-11.0) (units (unknown) date) X103/uL unknown) (unknown) (no (unknown) (unknown) Christi Johnson (units (unknown) date) L, DNP, [employer] unknown) [Primary Care Provider] (unknown) (no (unknown) (unknown) [Embedded Image (units (unknown) date) Not Available] unknown) (unknown) (no (unknown) (unknown) [From BACTRIM] (units (unknown) date) unknown) (unknown) (no (unknown) (unknown) [IODINATED (units (unk nown) date) CONTRAST MEDIA unknown) (unknown) (no (unknown) (unknown) [METOCLOPRAMIDE] (units (unknown) date) unknown) (unknown) (no (unknown) (unknown) [SHELLFISH (units (unk nown) date) DERIVED] unknown) (unknown) (no (unknown) (unknown) active bleeding or (units (unknown) date) evidence of unknown) depressed skull fracture (unknown) (no (unknown) (unknown) additional (units (unk nown) date) outpatient follow unknown) up (unknown) (no (unknown) (unknown) adhesive (units (unkno wn) date) [ADHESIVE] Allergy unknown) Mild Verified 11/21/22 16:09 (unknown) (no (unknown) (unknown) alcohol intake (units (unknown) date) frequency: unknown) holidays/special occasions only (unknown) (no (unknown) (unknown) amoxicillin (units (un known) date) [AMOXICILLIN] unknown) Allergy Mild Verified 11/21/22 16:09 (unknown) (no (unknown) (unknown) an episode of (units ( unknown) date) vomiting and unknown) syncope versus near-syncope event in which she fell (unknown) (no (unknown) (unknown) and struck her (units (unknown) date) head on a hard unknown) object. Her primary complaint is of left shoulder (unknown) (no (unknown) (unknown) apply to single (units (unknown) date) elbow, wrist or unknown) hand; for hand includes palm/fingers/back of (unknown) (no (unknown) (unknown) appointment. Let (units (unknown) date) them know you were unknown) seen in the Emergency Department and that we (unknown) (no (unknown) (unknown) ask that you be (units (unknown) date) seen in follow up. unknown) We will electronically transmit a record of (unknown) (no (unknown) (unknown) been reviewed with (units (unknown) date) patient as well as unknown) indications for ED re-evaluation and (unknown) (no (unknown) (unknown) but denies (units (unk nown) date) numbness, tingling unknown) or weakness. (unknown) (no (unknown) (unknown) cephalexin (units (unk nown) date) [CEPHALEXIN] unknown) Allergy Unknown Verified 11/21/22 16:09 (unknown) (no (unknown) (unknown) ciprofloxacin (units ( unknown) date) [CIPROFLOXACIN] unknown) Allergy Unknown Verified 11/21/22 16:09 (unknown) (no (unknown) (unknown) clindamycin (units (un known) date) [CLINDAMYCIN] unknown) Allergy Unknown Verified 11/21/22 16:09 (unknown) (no (unknown) (unknown) concerning (units (unk nown) date) symptoms, such as unknown) [fever greater than 101 F, shaking chills, (unknown) (no (unknown) (unknown) constipation, (units ( unknown) date) melena. unknown) (unknown) (no (unknown) (unknown) constipation. She (units (unknown) date) has severe pain to unknown) her left shoulder with any range of motion (unknown) (no (unknown) (unknown) deformity, closed, (units (unknown) date) isolated and unknown) neurovascularly intact (unknown) (no (unknown) (unknown) denies any change (units (unknown) date) in medications. She unknown) is not dizzy nor weak or lightheaded. (unknown) (no (unknown) (unknown) diazepam 10 mg (units (unknown) date) tablet 10 mg PO QID unknown) #120 tabs 10/12/21 (unknown) (no (unknown) (unknown) diazepam 10 mg (units (unknown) date) tablet unknown) (unknown) (no (unknown) (unknown) diazepam 5 mg (units ( unknown) date) tablet (Valium) 5 unknown) mg PO TID PRN muscle spasm #10 10/19/21 (unknown) (no (unknown) (unknown) diazepam [Valium] (units (unknown) date) 5 mg tablet unknown) (unknown) (no (unknown) (unknown) diclofenac sodium (units (unknown) date) 1 % gel unknown) (unknown) (no (unknown) (unknown) diclofenac sodium (units (unknown) date) 1 % topical gel 2 g unknown) topical QID #100 grams 05/05/22 (unknown) (no (unknown) (unknown) dislocation versus (units (unknown) date) other unknown) (unknown) (no (unknown) (unknown) dizziness. (units (unk nown) date) unknown) (unknown) (no (unknown) (unknown) doxycycline (units (un known) date) [DOXYCYCLINE] unknown) Allergy Mild Verified 11/21/22 16:09 (unknown) (no (unknown) (unknown) epinephrine 0.3 (units (unknown) date) mg/0.3 mL See Rx unknown) Instructions .Route 02/27/22 (unknown) (no (unknown) (unknown) epinephrine 0.3 (units (unknown) date) mg/0.3 mL unknown) auto-injector (unknown) (no (unknown) (unknown) findings. (units (unkn own) date) unknown) (unknown) (no (unknown) (unknown) forehead, alert, (units (unknown) date) oriented, GCS 15, unknown) no midline neck pain, heart rate regular, no (unknown) (no (unknown) (unknown) function as well (units (unknown) date) as BUN within unknown) normal (unknown) (no (unknown) (unknown) gastrointestinal (units (unknown) date) bleeding without unknown) specific source presents by EMS for evaluation (unknown) (no (unknown) (unknown) hand (units (unkno wn) date) unknown) (unknown) (no (unknown) (unknown) history and help (units (unknown) date) get you set up with unknown) a doctor in the community. (unknown) (no (unknown) (unknown) household members: (units (unknown) date) spouse and children unknown) (unknown) (no (unknown) (unknown) hydrocodone (units (un known) date) Allergy Mild rash unknown) Verified 11/21/22 16:09 (unknown) (no (unknown) (unknown) imaging largely (units (unknown) date) without significant unknown) findings, clavicle fracture is noted, she is (unknown) (no (unknown) (unknown) increased work of (units (unknown) date) breathing, left unknown) anterior shoulder pain without obvious (unknown) (no (unknown) (unknown) injection, (units (unk nown) date) auto-injector unknown) .COMPLEX #2 ea (unknown) (no (unknown) (unknown) injury and she is (units (unknown) date) concerned that she unknown) broke or dislocated her shoulder. She (unknown) (no (unknown) (unknown) injury with left (units (unknown) date) shoulder pain. She unknown) has very reassuring history physical exam, (unknown) (no (unknown) (unknown) iodine [IODINE] (units (unknown) date) Allergy Mild unknown) Verified 11/21/22 16:09 (unknown) (no (unknown) (unknown) lamotrigine 200 mg (units (unknown) date) tablet 200 mg PO unknown) DAILY #30 tabs 01/18/22 (unknown) (no (unknown) (unknown) lamotrigine 200 mg (units (unknown) date) tablet unknown) (unknown) (no (unknown) (unknown) latex [LATEX] (units ( unknown) date) Allergy Unknown unknown) Verified 11/21/22 16:09 (unknown) (no (unknown) (unknown) leukocytosis or (units (unknown) date) left shift, no unknown) evidence of anemia, electrolytes and renal (unknown) (no (unknown) (unknown) lidocaine AdvReac (units (unknown) date) Palpitation unknown) Verified 11/21/22 16:09 (unknown) (no (unknown) (unknown) lives (units (unkno wn) date) independently: Yes unknown) (unknown) (no (unknown) (unknown) marital status: (units (unknown) date) unknown) (unknown) (no (unknown) (unknown) metformin 500 mg (units (unknown) date) tablet 500 mg PO unknown) BID #60 tabs 02/21/22 (unknown) (no (unknown) (unknown) metformin 500 mg (units (unknown) date) tablet unknown) (unknown) (no (unknown) (unknown) metoclopramide (units (unknown) date) Allergy Mild unknown) Verified 11/21/22 16:09 (unknown) (no (unknown) (unknown) mg tablet (units (unkn own) date) (Percocet) unknown) (unknown) (no (unknown) (unknown) mild distress. GCS (units (unknown) date) 15 unknown) (unknown) (no (unknown) (unknown) motion, closed, (units (unknown) date) isolated and unknown) neurovascularly intact (unknown) (no (unknown) (unknown) notes clavicle (units (unknown) date) fracture unknown) (unknown) (no (unknown) (unknown) occupational (units (u nknown) date) status: employed unknown) (unknown) (no (unknown) (unknown) over the course of (units (unknown) date) the visit unknown) (unknown) (no (unknown) (unknown) oxycodone 10 mg (units (unknown) date) tablet 5 mg PO Q6H unknown) PRN pain #14 tabs 05/05/22 (unknown) (no (unknown) (unknown) oxycodone 10 mg (units (unknown) date) tablet unknown) (unknown) (no (unknown) (unknown) oxycodone-acetamin (units (unknown) date) ophen 5 mg-325 1 unknown) tab PO Q8H PRN pain #6 tabs 04/22/22 (unknown) (no (unknown) (unknown) oxycodone-acetamin (units (unknown) date) ophen [Percocet] unknown) 5-325 mg tablet (unknown) (no (unknown) (unknown) quetiapine 100 mg (units (unknown) date) tablet 100 mg PO unknown) BEDTIME 02/27/22 02/27/22 (unknown) (no (unknown) (unknown) quetiapine 100 mg (units (unknown) date) tablet unknown) (unknown) (no (unknown) (unknown) quetiapine 25 mg (units (unknown) date) tablet See Rx unknown) Instructions PO BEDTIME #45 01/18/22 (unknown) (no (unknown) (unknown) quetiapine 25 mg (units (unknown) date) tablet unknown) (unknown) (no (unknown) (unknown) rales, or rhonchi. (units (unknown) date) unknown) (unknown) (no (unknown) (unknown) received per (units (u nknown) date) another provider. unknown) (unknown) (no (unknown) (unknown) s (units (unkno wn) date) unknown) (unknown) (no (unknown) (unknown) sertraline 100 mg (units (unknown) date) tablet 200 mg PO unknown) DAILY #60 tabs 01/18/22 (unknown) (no (unknown) (unknown) sertraline 100 mg (units (unknown) date) tablet unknown) (unknown) (no (unknown) (unknown) shellfish derived (units (unknown) date) Allergy Severe unknown) ANAPHYLAXIS Verified 11/21/22 16:09 (unknown) (no (unknown) (unknown) significant (units (un known) date) findings, chest unknown) x-ray and elbow without acute findings, shoulder (unknown) (no (unknown) (unknown) splinted and pain (units (unknown) date) is well controlled. unknown) Labs without significant abnormal (unknown) (no (unknown) (unknown) sulfamethoxazole (units (unknown) date) Allergy Mild RASH unknown) Verified 11/21/22 16:09 (unknown) (no (unknown) (unknown) tabs (units (unkno wn) date) unknown) (unknown) (no (unknown) (unknown) tobacco type: (units ( unknown) date) vaping unknown) (unknown) (no (unknown) (unknown) today's note if (units (unknown) date) your PCP is in our unknown) system (unknown) (no (unknown) (unknown) tramadol 50 mg (units (unknown) date) tablet 100 mg PO unknown) BID PRN severe pain 03/22/22 (unknown) (no (unknown) (unknown) tramadol 50 mg (units (unknown) date) tablet unknown) (unknown) (no (unknown) (unknown) trazodone 100 mg (units (unknown) date) tablet See Rx unknown) Instructions .Route 11/20/21 (unknown) (no (unknown) (unknown) trazodone 100 mg (units (unknown) date) tablet unknown) (unknown) (no (unknown) (unknown) trimethoprim [From (units (unknown) date) BACTRIM] Allergy unknown) Mild RASH Verified 11/21/22 16:09 (unknown) (no (unknown) (unknown) upper GI bleed (units (unknown) date) versus seizures unknown) versus pseudoseizures versus fracture versus (unknown) (no (unknown) (unknown) versus (units (unkno wn) date) near-syncope and unknown) shoulder pain (unknown) (no (unknown) (unknown) vomiting] (units (unkn own) date) unknown) (unknown) (no (unknown) (unknown) without erythema, (units (unknown) date) tonsillar unknown) hypertrophy or exudate. Airway patent. (unknown) (no (unknown) (unknown) worsening pain, (units (unknown) date) persistent vomiting unknown) or other bothersome symptoms] Social History date description facility 2022-11-15 00:00 Smokes tobacco daily (finding) [facility] 2022-11-21 00:00 Ex-smoker (finding) [facility] Vital Signs date measurement value units 2022-11-15 00:00 BMI 34.0 kg/m2 2022-11-15 00:00 height_metric 154.94 cm 2022-11-15 00:00 height_standard 61 in 2022-11-15 00:00 respiration_rate 16 /min 2022-11-15 00:00 weight_metric 81.64 kg 2022-11-15 00:00 weight_standard 179.99 lb 2022-11-16 00:00 BP_diastolic 59 mmHg 2022-11-16 00:00 BP_systolic 109 mmHg 2022-11-16 00:00 heart_rate 69 /min 2022-11-16 00:00 o2_saturation 100 % 2022-11-16 00:00 temperature_metric 36.56 C 2022-11-16 00:00 temperature_standard 97.8 F 2022-11-21 00:00 BMI 34.0 kg/m2 2022-11-21 00:00 BP_diastolic 66 mmHg 2022-11-21 00:00 BP_systolic 124 mmHg 2022-11-21 00:00 heart_rate 65 /min 2022-11-21 00:00 height_metric 154.94 cm 2022-11-21 00:00 height_standard 61 in 2022-11-21 00:00 o2_saturation 100 % 2022-11-21 00:00 respiration_rate 16 /min 2022-11-21 00:00 temperature_metric 36.72 C 2022-11-21 00:00 temperature_standard 98.1 F 2022-11-21 00:00 weight_metric 81.64 kg 2022-11-21 00:00 weight_standard 179.99 lb
[2022-11-25] MEDS ORDERED: LORazepam 2 MG/ML VIAL IM STA (16:55)
--- NOTE | 2022-11-25 17:33 | XRAY Report ---
PROCEDURE: Clavicle LT INDICATIONS: fall, L shoulder/clavicle pain, known fx per pt TECHNIQUE: 2 views of the clavicle were acquired. COMPARISON: Correlation is made with the accompanying shoulder plain films. Correlation is also made with prior chest x-ray, 08/20/2022. FINDINGS: Bones: No fractures or dislocations. No suspicious bony lesions. Soft tissues: No suspicious soft tissue calcifications or masses. Low lung volumes can be seen, caus ing a crowded appearance to the lung markings. IMPRESSION: Normal clavicle plain films. Reviewed by: Deven Drew MD on 11/25/2022 4:32 PM [facility] Approved by: Deven Drew MD on 11/25/2022 4:32 PM [facility] Station ID: [id number]
--- NOTE | 2022-11-25 17:34 | XRAY Report ---
PROCEDURE: Shoulder 3 View LT INDICATIONS: fall, L shoulder/clavicle pain, known fx per pt TECHNIQUE: 3 views of the shoulder were acquired. COMPARISON: Correlation is made with the accompanying left clavicle plain films. FINDINGS: Bones: No fractures or dislocations. No suspicious bony lesions. Visualized ribs appear intact. Soft tissues: No suspicious soft tissue calcifications. The visualized lung demonstrates a normal a ppearance. IMPRESSION: Negative for left shoulder fracture or dislocation. If it would be helpful for clinical management decision making, please consider a dedicated, schedule d shoulder MRI for further evaluation (assuming that there is no contraindication). Reviewed by: Deven Drew MD on 11/25/2022 4:32 PM [facility] Approved by: Deven Drew MD on 11/25/2022 4:32 PM [facility]IK[facility] Station ID: [email or web address]
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
[2022-11-25 18:39] VITALS: BP 132/94
== END 2022-11-25 18:38 | disposition home or self-care (01) ==
LOC: ED 16:09
DX: S01.81XA Laceration without foreign body of other part of head, initial encounter (principal); G40.909 Epilepsy, unspecified, not intractable, without status epilepticus; Z91.148 Patient's other noncompliance with medication regimen for other reason
CPT/HCPCS: 12011; 73000; 73030; 96372; 99283; 99284; A9270; J2060

== ENCOUNTER 2022-12-12 15:43 | Outpatient (CLI) | payer MEDICAID | END 2022-12-12 23:59 | disposition critical access hospital (66) | LOC: EMS 15:43 | DX: R56.9 Unspecified convulsions (principal); R07.81 Pleurodynia; R10.11 Right upper quadrant pain; S41.132A Puncture wound without foreign body of left upper arm, initial encounter; W18.39XA Other fall on same level, initial encounter; W26.0XXA Contact with knife, initial encounter; Y92.008 Other place in unspecified non-institutional (private) residence as the place of occurrence of the external cause | CPT/HCPCS: A0425; A0429; A0999 ==

== ENCOUNTER 2022-12-12 16:05 | Emergency (ER) | payer MEDICAID ==
[2022-12-12] MEDS ORDERED: SODIUM CHLORIDE 0.9% 1,000 ML IV STA (16:40)
[2022-12-12] MEDS ORDERED: ONDANSETRON 4 MG/2 ML VIAL IVP STA (16:40)
[2022-12-12] MEDS ORDERED: KETOROLAC 15 MG/ML VIAL IVP STA (16:40)
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
[2022-12-12 17:04] LABS: ALBUMIN 4.5 g/dL (3.2-5.5); ALBUMIN/GLOBULIN RATIO 1.8 (1.0-2.2); CALCIUM 9.1 mg/dL (8.5-10.3); CREATININE 0.9 mg/dL (0.4-1.0); MAGNESIUM 1.9 mg/dL (1.7-2.8); POTASSIUM 3.9 mmol/L (3.5-5.0)
--- OUTSIDE RECORDS SUMMARY | 2022-12-12 17:21 | EXTERNAL MEDICAL SUMMARY RPT | Continuity of Care Document ---
Author Name Unknown Address [address] [place] [address] Phone Organization [facility] Address [address] [place] [address] Phone Care Team Providers Care Vp Integrity Name Role Phone Estevan Castorena Unavailable Unavailable Allergies and Intolerances date description facility type (no date) Mild [facility] (unknown) (no date) Iodinated Contrast Media [facility] (unknown) (no date) Penicillins [facility] (unknown) (no date) adhesive [facility] (unknown) (no date) amoxicillin [facility] (unknown) (no date) cephalexin [facility] (unknown) (no date) ciprofloxacin [facility] (unknown) (no date) clindamycin [facility] (unknown) (no date) doxycycline [facility] (unknown) (no date) hydrocodone [facility] (unknown) (no date) iodine [facility] (unknown) (no date) latex [facility] (unknown) (no date) lidocaine [facility] (unknown) (no date) metoclopramide [facility] (unknown) (no date) shellfish derived [facility] (unknow n) (no date) sulfamethoxazole [facility] (unknown ) (no date) trimethoprim [facility] (unknown) Medications date description facility 2022-11-16 00:[address] [facility] Problems date description facility 2022-11-16 00:[address] [facility] 2022-11-21 00:[address] [facility] 2022-11-21 00:00 Abrasion [facility] forehead [facility] 2022-11-21 00:00 Shoulder separation [facility] Procedures date description facility 2022-11-15 00:00 Computed tomography of abdomen and pelvis without contrast [facility] 2022-11-21 00:00 XR elbow left, 3+ views [facility] 2022-11-21 00:00 XR shoulder left, 2+ views [facility] 2022-11-21 00:00 Computed tomography of head or brain without contrast [facility] 2022-11-21 00:00 X-ray of chest, single [facility] 2022-11-21 00:00 Computed tomography of cervical spine without contrast [facility] Results/Labs test date author facility value unit interpretation Result panel 1 (unknown) (no date) (unknown) [facility] (no value) (units unknown) (unknown) Result panel 2 (unknown) (no date) (unknown) [facility] (no value) (units unknown) (unknown) Result panel 3 (unknown) (no date) (unknown) [facility] (no value) (units unknown) (unknown) Result panel 4 (unknown) (no date) (unknown) [facility] (no value) (units unknown) (unknown) Result panel 5 (unknown) (no date) (unknown) [facility] (no value) (units unknown) (unknown) Result panel 6 (unknown) (no date) (unknown) [facility] (no value) (units unknown) (unknown) Result panel 7 (unknown) (no date) (unknown) [facility] (no value) (units unknown) (unknown) Result panel 8 (unknown) (no date) (unknown) [facility] (no value) (units unknown) (unknown) Result panel 9 (unknown) (no date) (unknown) [facility] (no value) (units unknown) (unknown) Result panel 10 (unknown) (no date) (unknown) [facility] (no value) (units unknown) (unknown) Result panel 11 (unknown) (no date) (unknown) [facility] (no value) (units unknown) (unknown) Result panel 12 (unknown) (no date) (unknown) [facility] (no value) (units unknown) (unknown) Result panel 13 (unknown) (no date) (unknown) [facility] (no value) (units unknown) (unknown) Result panel 14 (unknown) (no date) (unknown) [facility] (no value) (units unknown) (unknown) Result panel 15 (unknown) (no date) (unknown) [facility] (no value) (units unknown) (unknown) Result panel 16 (unknown) (no date) (unknown) [facility] (no value) (units unknown) (unknown) Result panel 17 (unknown) (no date) (unknown) [facility] (no value) (units unknown) (unknown) Result panel 18 (unknown) (no date) (unknown) [facility] (no value) (units unknown) (unknown) Result panel 19 (unknown) (no date) (unknown) [facility] (no value) (units unknown) (unknown) Result panel 20 (unknown) (no date) (unknown) [facility] (no value) (units unknown) (unknown) Result panel 21 (unknown) (no date) (unknown) [facility] (no value) (units unknown) (unknown) Result panel 22 (unknown) (no date) (unknown) [facility] (no value) (units unknown) (unknown) Result panel 23 (unknown) (no date) (unknown) [facility] (no value) (units unknown) (unknown) Result panel 24 (unknown) (no date) (unknown) [facility] (no value) (units unknown) (unknown) Result panel 25 (unknown) (no date) (unknown) [facility] (no value) (units unknown) (unknown) Result panel 26 (unknown) (no date) (unknown) [facility] (no value) (units unknown) (unknown) Result panel 27 (unknown) (no date) (unknown) [facility] (no value) (units unknown) (unknown) Result panel 28 (unknown) (no date) (unknown) [facility] (no value) (units unknown) (unknown) Result panel 29 (unknown) (no date) (unknown) [facility] (no value) (units unknown) (unknown) Result panel 30 (unknown) (no date) (unknown) [facility] (no value) (units unknown) (unknown) Result panel 31 (unknown) (no date) (unknown) [facility] (no value) (units unknown) (unknown) Result panel 32 (unknown) (no date) (unknown) [facility] (no value) (units unknown) (unknown) Result panel 33 (unknown) (no date) (unknown) [facility] (no value) (units unknown) (unknown) Result panel 34 (unknown) (no date) (unknown) [facility] (no value) (units unknown) (unknown) Result panel 35 (unknown) (no date) (unknown) [facility] (no value) (units unknown) (unknown) Result panel 36 (unknown) (no date) (unknown) [facility] (no value) (units unknown) (unknown) Result panel 37 (unknown) (no date) (unknown) [facility] (no value) (units unknown) (unknown) Result panel 38 (unknown) (no date) (unknown) [facility] (no value) (units unknown) (unknown) Result panel 39 (unknown) (no date) (unknown) [facility] (no value) (units unknown) (unknown) Result panel 40 (unknown) (no date) (unknown) [facility] (no value) (units unknown) (unknown) Result panel 41 (unknown) (no date) (unknown) [facility] (no value) (units unknown) (unknown) Result panel 42 (unknown) (no date) (unknown) [facility] (no value) (units unknown) (unknown) Result panel 43 (unknown) (no date) (unknown) [facility] (no value) (units unknown) (unknown) Result panel 44 (unknown) (no date) (unknown) [facility] (no value) (units unknown) (unknown) Result panel 45 (unknown) (no date) (unknown) [facility] (no value) (units unknown) (unknown) Result panel 46 (unknown) (no date) (unknown) [facility] (no value) (units unknown) (unknown) Result panel 47 (unknown) (no date) (unknown) [facility] (no value) (units unknown) (unknown) Result panel 48 (unknown) (no date) (unknown) [facility] (no value) (units unknown) (unknown) Result panel 49 (unknown) (no date) (unknown) [facility] (no value) (units unknown) (unknown) Result panel 50 (unknown) (no date) (unknown) [facility] (no value) (units unknown) (unknown) Result panel 51 (unknown) (no date) (unknown) [facility] (no value) (units unknown) (unknown) Result panel 52 (unknown) (no date) (unknown) [facility] (no value) (units unknown) (unknown) Result panel 53 (unknown) (no date) (unknown) [facility] (no value) (units unknown) (unknown) Result panel 54 (unknown) (no date) (unknown) [facility] (no value) (units unknown) (unknown) Result panel 55 (unknown) (no date) (unknown) [facility] (no value) (units unknown) (unknown) Result panel 56 (unknown) (no date) (unknown) [facility] (no value) (units unknown) (unknown) Result panel 57 (unknown) (no date) (unknown) [facility] (no value) (units unknown) (unknown) Result panel 58 (unknown) (no date) (unknown) [facility] (no value) (units unknown) (unknown) Result panel 59 (unknown) (no date) (unknown) [facility] (no value) (units unknown) (unknown) Result panel 60 (unknown) (no date) (unknown) [facility] (no value) (units unknown) (unknown) Result panel 61 (unknown) (no date) (unknown) [facility] (no value) (units unknown) (unknown) Result panel 62 (unknown) (no date) (unknown) [facility] (no value) (units unknown) (unknown) Result panel 63 (unknown) (no date) (unknown) [facility] (no value) (units unknown) (unknown) Result panel 64 (unknown) (no date) (unknown) [facility] (no value) (units unknown) (unknown) Result panel 65 (unknown) (no date) (unknown) [facility] (no value) (units unknown) (unknown) Result panel 66 (unknown) (no date) (unknown) [facility] (no value) (units unknown) (unknown) Result panel 67 (unknown) (no date) (unknown) [facility] (no value) (units unknown) (unknown) Result panel 68 (unknown) (no date) (unknown) [facility] (no value) (units unknown) (unknown) Result panel 69 (unknown) (no date) (unknown) [facility] (no value) (units unknown) (unknown) Result panel 70 (unknown) (no date) (unknown) [facility] (no value) (units unknown) (unknown) Result panel 71 (unknown) (no date) (unknown) [facility] (no value) (units unknown) (unknown) Result panel 72 (unknown) (no date) (unknown) [facility] (no value) (units unknown) (unknown) Result panel 73 (unknown) (no date) (unknown) [facility] (no value) (units unknown) (unknown) Result panel 74 (unknown) (no date) (unknown) [facility] (no value) (units unknown) (unknown) Result panel 75 (unknown) (no date) (unknown) [facility] (no value) (units unknown) (unknown) Result panel 76 (unknown) (no date) (unknown) [facility] (no value) (units unknown) (unknown) Result panel 77 (unknown) (no date) (unknown) [facility] (no value) (units unknown) (unknown) Result panel 78 (unknown) (no date) (unknown) [facility] (no value) (units unknown) (unknown) Result panel 79 (unknown) (no date) (unknown) [facility] (no value) (units unknown) (unknown) Result panel 80 (unknown) (no date) (unknown) [facility] (no value) (units unknown) (unknown) Result panel 81 (unknown) (no date) (unknown) [facility] (no value) (units unknown) (unknown) Result panel 82 (unknown) (no date) (unknown) [facility] (no value) (units unknown) (unknown) Result panel 83 (unknown) (no date) (unknown) [facility] (no value) (units unknown) (unknown) Result panel 84 (unknown) (no date) (unknown) [facility] (no value) (units unknown) (unknown) Result panel 85 (unknown) (no date) (unknown) [facility] (no value) (units unknown) (unknown) Result panel 86 (unknown) (no date) (unknown) [facility] (no value) (units unknown) (unknown) Result panel 87 (unknown) (no date) (unknown) [facility] (no value) (units unknown) (unknown) Result panel 88 (unknown) (no date) (unknown) [facility] (no value) (units unknown) (unknown) Result panel 89 (unknown) (no date) (unknown) [facility] (no value) (units unknown) (unknown) Result panel 90 (unknown) (no date) (unknown) [facility] (no value) (units unknown) (unknown) Result panel 91 (unknown) (no date) (unknown) [facility] (no value) (units unknown) (unknown) Result panel 92 (unknown) (no date) (unknown) [facility] (no value) (units unknown) (unknown) Result panel 93 (unknown) (no date) (unknown) [facility] (no value) (units unknown) (unknown) Result panel 94 (unknown) (no date) (unknown) [facility] (no value) (units unknown) (unknown) Result panel 95 (unknown) (no date) (unknown) [facility] (no value) (units unknown) (unknown) Result panel 96 (unknown) (no date) (unknown) [facility] (no value) (units unknown) (unknown) Result panel 97 (unknown) (no date) (unknown) [facility] (no value) (units unknown) (unknown) Result panel 98 (unknown) (no date) (unknown) [facility] (no value) (units unknown) (unknown) Result panel 99 (unknown) (no date) (unknown) [facility] (no value) (units unknown) (unknown) Result panel 100 (unknown) (no date) (unknown) [facility] (no value) (units unknown) (unknown) Result panel 101 (unknown) (no date) (unknown) [facility] (no value) (units unknown) (unknown) Result panel 102 (unknown) (no date) (unknown) [facility] (no value) (units unknown) (unknown) Result panel 103 (unknown) (no date) (unknown) [facility] (no value) (units unknown) (unknown) Result panel 104 (unknown) (no date) (unknown) [facility] (no value) (units unknown) (unknown) Result panel 105 (unknown) (no date) (unknown) [facility] (no value) (units unknown) (unknown) Result panel 106 (unknown) (no date) (unknown) [facility] (no value) (units unknown) (unknown) Result panel 107 (unknown) (no date) (unknown) [facility] (no value) (units unknown) (unknown) Result panel 108 (unknown) (no date) (unknown) [facility] (no value) (units unknown) (unknown) Result panel 109 (unknown) (no date) (unknown) [facility] (no value) (units unknown) (unknown) Result panel 110 (unknown) (no date) (unknown) [facility] (no value) (units unknown) (unknown) Result panel 111 (unknown) (no date) (unknown) [facility] (no value) (units unknown) (unknown) Result panel 112 (unknown) (no date) (unknown) [facility] (no value) (units unknown) (unknown) Result panel 113 (unknown) (no date) (unknown) [facility] (no value) (units unknown) (unknown) Result panel 114 (unknown) (no date) (unknown) [facility] (no value) (units unknown) (unknown) Result panel 115 (unknown) (no date) (unknown) [facility] (no value) (units unknown) (unknown) Result panel 116 (unknown) (no date) (unknown) [facility] (no value) (units unknown) (unknown) Result panel 117 (unknown) (no date) (unknown) [facility] (no value) (units unknown) (unknown) Result panel 118 (unknown) (no date) (unknown) [facility] (no value) (units unknown) (unknown) Result panel 119 (unknown) (no date) (unknown) [facility] (no value) (units unknown) (unknown) Result panel 120 (unknown) (no date) (unknown) [facility] (no value) (units unknown) (unknown) Result panel 121 (unknown) (no date) (unknown) [facility] (no value) (units unknown) (unknown) Result panel 122 (unknown) (no date) (unknown) [facility] (no value) (units unknown) (unknown) Result panel 123 (unknown) (no date) (unknown) [facility] (no value) (units unknown) (unknown) Result panel 124 (unknown) (no date) (unknown) [facility] (no value) (units unknown) (unknown) Result panel 125 (unknown) (no date) (unknown) [facility] (no value) (units unknown) (unknown) Result panel 126 (unknown) (no date) (unknown) [facility] (no value) (units unknown) (unknown) Result panel 127 (unknown) (no date) (unknown) [facility] (no value) (units unknown) (unknown) Result panel 128 (unknown) (no date) (unknown) [facility] (no value) (units unknown) (unknown) Result panel 129 (unknown) (no date) (unknown) [facility] (no value) (units unknown) (unknown) Result panel 130 (unknown) (no date) (unknown) [facility] (no value) (units unknown) (unknown) Result panel 131 (unknown) (no date) (unknown) [facility] (no value) (units unknown) (unknown) Result panel 132 (unknown) (no date) (unknown) [facility] (no value) (units unknown) (unknown) Result panel 133 (unknown) (no date) (unknown) [facility] (no value) (units unknown) (unknown) Result panel 134 (unknown) (no date) (unknown) [facility] (no value) (units unknown) (unknown) Result panel 135 (unknown) (no date) (unknown) [facility] (no value) (units unknown) (unknown) Result panel 136 (unknown) (no date) (unknown) [facility] (no value) (units unknown) (unknown) Result panel 137 (unknown) (no date) (unknown) [facility] (no value) (units unknown) (unknown) Result panel 138 (unknown) (no date) (unknown) [facility] (no value) (units unknown) (unknown) Result panel 139 (unknown) (no date) (unknown) [facility] (no value) (units unknown) (unknown) Result panel 140 (unknown) (no date) (unknown) [facility] (no value) (units unknown) (unknown) Result panel 141 (unknown) (no date) (unknown) [facility] (no value) (units unknown) (unknown) Result panel 142 (unknown) (no date) (unknown) [facility] (no value) (units unknown) (unknown) Result panel 143 (unknown) (no date) (unknown) [facility] (no value) (units unknown) (unknown) Result panel 144 (unknown) (no date) (unknown) [facility] (no value) (units unknown) (unknown) Result panel 145 (unknown) (no date) (unknown) [facility] (no value) (units unknown) (unknown) Result panel 146 (unknown) (no date) (unknown) [facility] (no value) (units unknown) (unknown) Result panel 147 (unknown) (no date) (unknown) [facility] (no value) (units unknown) (unknown) Result panel 148 (unknown) (no date) (unknown) [facility] (no value) (units unknown) (unknown) Result panel 149 (unknown) (no date) (unknown) [facility] (no value) (units unknown) (unknown) Result panel 150 (unknown) (no date) (unknown) [facility] (no value) (units unknown) (unknown) Result panel 151 (unknown) (no date) (unknown) [facility] (no value) (units unknown) (unknown) Result panel 152 (unknown) (no date) (unknown) [facility] (no value) (units unknown) (unknown) Result panel 153 (unknown) (no date) (unknown) [facility] (no value) (units unknown) (unknown) Result panel 154 (unknown) (no date) (unknown) [facility] (no value) (units unknown) (unknown) Result panel 155 (unknown) (no date) (unknown) [facility] (no value) (units unknown) (unknown) Result panel 156 (unknown) (no date) (unknown) [facility] (no value) (units unknown) (unknown) Result panel 157 (unknown) (no date) (unknown) [facility] (no value) (units unknown) (unknown) Result panel 158 (unknown) (no date) (unknown) [facility] (no value) (units unknown) (unknown) Result panel 159 (unknown) (no date) (unknown) [facility] (no value) (units unknown) (unknown) Result panel 160 (unknown) (no date) (unknown) [facility] (no value) (units unknown) (unknown) Result panel 161 (unknown) (no date) (unknown) [facility] (no value) (units unknown) (unknown) Result panel 162 (unknown) (no date) (unknown) [facility] (no value) (units unknown) (unknown) Result panel 163 (unknown) (no date) (unknown) [facility] (no value) (units unknown) (unknown) Result panel 164 (unknown) (no date) (unknown) [facility] (no value) (units unknown) (unknown) Result panel 165 (unknown) (no date) (unknown) [facility] (no value) (units unknown) (unknown) Result panel 166 (unknown) (no date) (unknown) [facility] (no value) (units unknown) (unknown) Result panel 167 (unknown) (no date) (unknown) [facility] (no value) (units unknown) (unknown) Result panel 168 (unknown) (no date) (unknown) [facility] (no value) (units unknown) (unknown) Result panel 169 (unknown) (no date) (unknown) [facility] (no value) (units unknown) (unknown) Result panel 170 (unknown) (no date) (unknown) [facility] (no value) (units unknown) (unknown) Result panel 171 (unknown) (no date) (unknown) [facility] (no value) (units unknown) (unknown) Result panel 172 (unknown) (no date) (unknown) [facility] (no value) (units unknown) (unknown) Result panel 173 (unknown) (no date) (unknown) [facility] (no value) (units unknown) (unknown) Result panel 174 (unknown) (no date) (unknown) [facility] (no value) (units unknown) (unknown) Result panel 175 (unknown) (no date) (unknown) [facility] (no value) (units unknown) (unknown) Result panel 176 (unknown) (no date) (unknown) [facility] (no value) (units unknown) (unknown) Result panel 177 (unknown) (no date) (unknown) [facility] (no value) (units unknown) (unknown) Result panel 178 (unknown) (no date) (unknown) [facility] (no value) (units unknown) (unknown) Result panel 179 (unknown) (no date) (unknown) [facility] (no value) (units unknown) (unknown) Result panel 180 (unknown) (no date) (unknown) [facility] (no value) (units unknown) (unknown) Result panel 181 (unknown) (no date) (unknown) [facility] (no value) (units unknown) (unknown) Result panel 182 (unknown) (no date) (unknown) [facility] (no value) (units unknown) (unknown) Result panel 183 (unknown) (no date) (unknown) [facility] (no value) (units unknown) (unknown) Result panel 184 (unknown) (no date) (unknown) [facility] (no value) (units unknown) (unknown) Result panel 185 (unknown) (no date) (unknown) [facility] (no value) (units unknown) (unknown) Result panel 186 (unknown) (no date) (unknown) [facility] (no value) (units unknown) (unknown) Result panel 187 (unknown) (no date) (unknown) [facility] (no value) (units unknown) (unknown) Result panel 188 (unknown) (no date) (unknown) [facility] (no value) (units unknown) (unknown) Result panel 189 (unknown) (no date) (unknown) [facility] (no value) (units unknown) (unknown) Result panel 190 (unknown) (no date) (unknown) [facility] (no value) (units unknown) (unknown) Result panel 191 (unknown) (no date) (unknown) [facility] (no value) (units unknown) (unknown) Result panel 192 (unknown) (no date) (unknown) [facility] (no value) (units unknown) (unknown) Result panel 193 (unknown) (no date) (unknown) [facility] (no value) (units unknown) (unknown) Result panel 194 (unknown) (no date) (unknown) [facility] (no value) (units unknown) (unknown) Result panel 195 (unknown) (no date) (unknown) [facility] (no value) (units unknown) (unknown) Result panel 196 (unknown) (no date) (unknown) [facility] (no value) (units unknown) (unknown) Result panel 197 (unknown) (no date) (unknown) [facility] (no value) (units unknown) (unknown) Result panel 198 (unknown) (no date) (unknown) [facility] (no value) (units unknown) (unknown) Result panel 199 (unknown) (no date) (unknown) [facility] (no value) (units unknown) (unknown) Result panel 200 (unknown) (no date) (unknown) [facility] (no value) (units unknown) (unknown) Result panel 201 (unknown) (no date) (unknown) [facility] (no value) (units unknown) (unknown) Result panel 202 (unknown) (no date) (unknown) [facility] (no value) (units unknown) (unknown) Result panel 203 (unknown) (no date) (unknown) [facility] (no value) (units unknown) (unknown) Result panel 204 (unknown) (no date) (unknown) [facility] (no value) (units unknown) (unknown) Result panel 205 (unknown) (no date) (unknown) [facility] (no value) (units unknown) (unknown) Result panel 206 (unknown) (no date) (unknown) [facility] (no value) (units unknown) (unknown) Result panel 207 (unknown) (no date) (unknown) [facility] (no value) (units unknown) (unknown) Result panel 208 (unknown) (no date) (unknown) [facility] (no value) (units unknown) (unknown) Result panel 209 (unknown) (no date) (unknown) [facility] (no value) (units unknown) (unknown) Result panel 210 (unknown) (no date) (unknown) [facility] (no value) (units unknown) (unknown) Result panel 211 (unknown) (no date) (unknown) [facility] (no value) (units unknown) (unknown) Result panel 212 (unknown) (no date) (unknown) [facility] (no value) (units unknown) (unknown) Result panel 213 (unknown) (no date) (unknown) [facility] (no value) (units unknown) (unknown) Result panel 214 (unknown) (no date) (unknown) [facility] (no value) (units unknown) (unknown) Result panel 215 (unknown) (no date) (unknown) [facility] (no value) (units unknown) (unknown) Result panel 216 (unknown) (no date) (unknown) [facility] (no value) (units unknown) (unknown) Result panel 217 (unknown) (no date) (unknown) [facility] (no value) (units unknown) (unknown) Result panel 218 (unknown) (no date) (unknown) [facility] (no value) (units unknown) (unknown) Result panel 219 (unknown) (no date) (unknown) [facility] (no value) (units unknown) (unknown) Result panel 220 (unknown) (no date) (unknown) [facility] (no value) (units unknown) (unknown) Result panel 221 (unknown) (no date) (unknown) [facility] (no value) (units unknown) (unknown) Result panel 222 (unknown) (no date) (unknown) [facility] (no value) (units unknown) (unknown) Result panel 223 (unknown) (no date) (unknown) [facility] (no value) (units unknown) (unknown) Result panel 224 (unknown) (no date) (unknown) [facility] (no value) (units unknown) (unknown) Result panel 225 (unknown) (no date) (unknown) [facility] (no value) (units unknown) (unknown) Result panel 226 (unknown) (no date) (unknown) [facility] (no value) (units unknown) (unknown) Result panel 227 (unknown) (no date) (unknown) [facility] (no value) (units unknown) (unknown) Result panel 228 (unknown) (no date) (unknown) [facility] (no value) (units unknown) (unknown) Result panel 229 (unknown) (no date) (unknown) [facility] (no value) (units unknown) (unknown) Result panel 230 (unknown) (no date) (unknown) [facility] (no value) (units unknown) (unknown) Result panel 231 (unknown) (no date) (unknown) [facility] (no value) (units unknown) (unknown) Result panel 232 (unknown) (no date) (unknown) [facility] (no value) (units unknown) (unknown) Result panel 233 (unknown) (no date) (unknown) [facility] (no value) (units unknown) (unknown) Result panel 234 (unknown) (no date) (unknown) [facility] (no value) (units unknown) (unknown) Result panel 235 (unknown) (no date) (unknown) [facility] (no value) (units unknown) (unknown) Result panel 236 (unknown) (no date) (unknown) [facility] (no value) (units unknown) (unknown) Result panel 237 (unknown) (no date) (unknown) [facility] (no value) (units unknown) (unknown) Result panel 238 (unknown) (no date) (unknown) [facility] (no value) (units unknown) (unknown) Result panel 239 (unknown) (no date) (unknown) [facility] (no value) (units unknown) (unknown) Result panel 240 (unknown) (no date) (unknown) [facility] (no value) (units unknown) (unknown) Result panel 241 (unknown) (no date) (unknown) [facility] (no value) (units unknown) (unknown) Result panel 242 (unknown) (no date) (unknown) [facility] (no value) (units unknown) (unknown) Result panel 243 (unknown) (no date) (unknown) [facility] (no value) (units unknown) (unknown) Result panel 244 (unknown) (no date) (unknown) [facility] (no value) (units unknown) (unknown) Result panel 245 (unknown) (no date) (unknown) [facility] (no value) (units unknown) (unknown) Result panel 246 (unknown) (no date) (unknown) [facility] (no value) (units unknown) (unknown) Result panel 247 (unknown) (no date) (unknown) [facility] (no value) (units unknown) (unknown) Result panel 248 (unknown) (no date) (unknown) [facility] (no value) (units unknown) (unknown) Result panel 249 (unknown) (no date) (unknown) [facility] (no value) (units unknown) (unknown) Result panel 250 (unknown) (no date) (unknown) [facility] (no value) (units unknown) (unknown) Result panel 251 (unknown) (no date) (unknown) [facility] (no value) (units unknown) (unknown) Result panel 252 (unknown) (no date) (unknown) [facility] (no value) (units unknown) (unknown) Result panel 253 (unknown) (no date) (unknown) [facility] (no value) (units unknown) (unknown) Result panel 254 (unknown) (no date) (unknown) [facility] (no value) (units unknown) (unknown) Result panel 255 (unknown) (no date) (unknown) [facility] (no value) (units unknown) (unknown) Result panel 256 (unknown) (no date) (unknown) [facility] (no value) (units unknown) (unknown) Result panel 257 (unknown) (no date) (unknown) [facility] (no value) (units unknown) (unknown) Result panel 258 (unknown) (no date) (unknown) [facility] (no value) (units unknown) (unknown) Result panel 259 (unknown) (no date) (unknown) [facility] (no value) (units unknown) (unknown) Result panel 260 (unknown) (no date) (unknown) [facility] (no value) (units unknown) (unknown) Result panel 261 (unknown) (no date) (unknown) [facility] (no value) (units unknown) (unknown) Result panel 262 (unknown) (no date) (unknown) [facility] (no value) (units unknown) (unknown) Result panel 263 (unknown) (no date) (unknown) [facility] (no value) (units unknown) (unknown) Result panel 264 (unknown) (no date) (unknown) [facility] (no value) (units unknown) (unknown) Result panel 265 (unknown) (no date) (unknown) [facility] (no value) (units unknown) (unknown) Result panel 266 (unknown) (no date) (unknown) [facility] (no value) (units unknown) (unknown) Result panel 267 (unknown) (no date) (unknown) [facility] (no value) (units unknown) (unknown) Result panel 268 (unknown) (no date) (unknown) [facility] (no value) (units unknown) (unknown) Result panel 269 (unknown) (no date) (unknown) [facility] (no value) (units unknown) (unknown) Result panel 270 (unknown) (no date) (unknown) [facility] (no value) (units unknown) (unknown) Result panel 271 (unknown) (no date) (unknown) [facility] (no value) (units unknown) (unknown) Result panel 272 (unknown) (no date) (unknown) [facility] (no value) (units unknown) (unknown) Result panel 273 (unknown) (no date) (unknown) [facility] (no value) (units unknown) (unknown) Result panel 274 (unknown) (no date) (unknown) [facility] (no value) (units unknown) (unknown) Result panel 275 (unknown) (no date) (unknown) [facility] (no value) (units unknown) (unknown) Result panel 276 (unknown) (no date) (unknown) [facility] (no value) (units unknown) (unknown) Result panel 277 (unknown) (no date) (unknown) [facility] (no value) (units unknown) (unknown) Result panel 278 (unknown) (no date) (unknown) [facility] (no value) (units unknown) (unknown) Result panel 279 (unknown) (no date) (unknown) [facility] (no value) (units unknown) (unknown) Result panel 280 (unknown) (no date) (unknown) [facility] (no value) (units unknown) (unknown) Result panel 281 (unknown) (no date) (unknown) [facility] (no value) (units unknown) (unknown) Result panel 282 (unknown) (no date) (unknown) [facility] (no value) (units unknown) (unknown) Result panel 283 (unknown) (no date) (unknown) [facility] (no value) (units unknown) (unknown) Result panel 284 (unknown) (no date) (unknown) [facility] (no value) (units unknown) (unknown) Result panel 285 (unknown) (no date) (unknown) [facility] (no value) (units unknown) (unknown) Result panel 286 (unknown) (no date) (unknown) [facility] (no value) (units unknown) (unknown) Result panel 287 (unknown) (no date) (unknown) [facility] (no value) (units unknown) (unknown) Result panel 288 (unknown) (no date) (unknown) [facility] (no value) (units unknown) (unknown) Result panel 289 (unknown) (no date) (unknown) [facility] (no value) (units unknown) (unknown) Result panel 290 (unknown) (no date) (unknown) [facility] (no value) (units unknown) (unknown) Result panel 291 (unknown) (no date) (unknown) [facility] (no value) (units unknown) (unknown) Result panel 292 (unknown) (no date) (unknown) [facility] (no value) (units unknown) (unknown) Result panel 293 (unknown) (no date) (unknown) [facility] (no value) (units unknown) (unknown) Result panel 294 (unknown) (no date) (unknown) [facility] (no value) (units unknown) (unknown) Result panel 295 (unknown) (no date) (unknown) [facility] (no value) (units unknown) (unknown) Result panel 296 (unknown) (no date) (unknown) [facility] (no value) (units unknown) (unknown) Result panel 297 (unknown) (no date) (unknown) [facility] (no value) (units unknown) (unknown) Result panel 298 (unknown) (no date) (unknown) [facility] (no value) (units unknown) (unknown) Result panel 299 (unknown) (no date) (unknown) [facility] (no value) (units unknown) (unknown) Result panel 300 (unknown) (no date) (unknown) [facility] (no value) (units unknown) (unknown) Result panel 301 (unknown) (no date) (unknown) [facility] (no value) (units unknown) (unknown) Result panel 302 (unknown) (no date) (unknown) [facility] (no value) (units unknown) (unknown) Result panel 303 (unknown) (no date) (unknown) [facility] (no value) (units unknown) (unknown) Result panel 304 (unknown) (no date) (unknown) [facility] (no value) (units unknown) (unknown) Result panel 305 (unknown) (no date) (unknown) [facility] (no value) (units unknown) (unknown) Result panel 306 (unknown) (no date) (unknown) [facility] (no value) (units unknown) (unknown) Result panel 307 (unknown) (no date) (unknown) [facility] (no value) (units unknown) (unknown) Result panel 308 (unknown) (no date) (unknown) [facility] (no value) (units unknown) (unknown) Result panel 309 (unknown) (no date) (unknown) [facility] (no value) (units unknown) (unknown) Result panel 310 (unknown) (no date) (unknown) [facility] (no value) (units unknown) (unknown) Result panel 311 (unknown) (no date) (unknown) [facility] (no value) (units unknown) (unknown) Result panel 312 (unknown) (no date) (unknown) [facility] (no value) (units unknown) (unknown) Result panel 313 (unknown) (no date) (unknown) [facility] (no value) (units unknown) (unknown) Result panel 314 (unknown) (no date) (unknown) [facility] (no value) (units unknown) (unknown) Result panel 315 (unknown) (no date) (unknown) [facility] (no value) (units unknown) (unknown) Result panel 316 (unknown) (no date) (unknown) [facility] (no value) (units unknown) (unknown) Result panel 317 (unknown) (no date) (unknown) [facility] (no value) (units unknown) (unknown) Result panel 318 (unknown) (no date) (unknown) [facility] (no value) (units unknown) (unknown) Result panel 319 (unknown) (no date) (unknown) [facility] (no value) (units unknown) (unknown) Result panel 320 (unknown) (no date) (unknown) [facility] (no value) (units unknown) (unknown) Result panel 321 (unknown) (no date) (unknown) [facility] (no value) (units unknown) (unknown) Result panel 322 (unknown) (no date) (unknown) [facility] (no value) (units unknown) (unknown) Result panel 323 (unknown) (no date) (unknown) [facility] (no value) (units unknown) (unknown) Result panel 324 (unknown) (no date) (unknown) [facility] (no value) (units unknown) (unknown) Result panel 325 (unknown) (no date) (unknown) [facility] (no value) (units unknown) (unknown) Result panel 326 (unknown) (no date) (unknown) [facility] (no value) (units unknown) (unknown) Result panel 327 (unknown) (no date) (unknown) [facility] (no value) (units unknown) (unknown) Result panel 328 (unknown) (no date) (unknown) [facility] (no value) (units unknown) (unknown) Result panel 329 (unknown) (no date) (unknown) [facility] (no value) (units unknown) (unknown) Result panel 330 (unknown) (no date) (unknown) [facility] (no value) (units unknown) (unknown) Result panel 331 (unknown) (no date) (unknown) [facility] (no value) (units unknown) (unknown) Result panel 332 (unknown) (no date) (unknown) [facility] (no value) (units unknown) (unknown) Result panel 333 (unknown) (no date) (unknown) [facility] (no value) (units unknown) (unknown) Result panel 334 (unknown) (no date) (unknown) [facility] (no value) (units unknown) (unknown) Result panel 335 (unknown) (no date) (unknown) [facility] (no value) (units unknown) (unknown) Result panel 336 (unknown) (no date) (unknown) [facility] (no value) (units unknown) (unknown) Result panel 337 (unknown) (no date) (unknown) [facility] (no value) (units unknown) (unknown) Result panel 338 (unknown) (no date) (unknown) [facility] (no value) (units unknown) (unknown) Result panel 339 (unknown) (no date) (unknown) (unknown) (no value) (units unknown) (unknown) (unknown) (no date) (unknown) (unknown) (scale score 7-10) #60 tabs (units unknown) (unknown) (unknown) (no date) (unknown) (unknown) .COMPLEX #180 tabs (units unknown) (unknown) (unknown) (no date) (unknown) (unknown) 1 tab PO Q8H PRN (Reason: pain) Qty: 6 0RF (units unknown) (unknown) (unknown) (no date) (unknown) (unknown) 10 mg PO QID Qty: 12 0 2RF (units unknown) (unknown) (unknown) (no date) (unknown) (unknown) 100 mg PO BEDTIME (units unknown) (unknown) (unknown) (no date) (unknown) (unknown) 100 mg PO BID PRN (Reason: severe pain (scale score 7-10)) Qty: 60 0RF (units unknown) (unknown) (unknown) (no date) (unknown) (unknown) 2 g topical QID Qty: 100 3RF (units unknown) (unknown) (unknown) (no date) (unknown) (unknown) 200 mg PO DAILY Qty: 30 2RF (units unknown) (unknown) (unknown) (no date) (unknown) (unknown) 200 mg PO DAILY Qty: 60 2RF (units unknown) (unknown) (unknown) (no date) (unknown) (unknown) 5 mg PO Q6H PRN (Reason: pain) Qty: 14 0RF (units unknown) (unknown) (unknown) (no date) (unknown) (unknown) 5 mg PO TID PRN (Reason: muscle spasm) Qty: 10 0RF (units unknown) (unknown) (unknown) (no date) (unknown) (unknown) 500 mg PO BID Qty: 6 0 0RF (units unknown) (unknown) (unknown) (no date) (unknown) (unknown) : [id number] (units unknown) (unknown) (unknown) (no date) (unknown) (unknown) Age/Sex: 27 / F (units unknown) (unknown) (unknown) (no date) (unknown) (unknown) Allergies (units unknown) (unknown) (unknown) (no date) (unknown) (unknown) Allergy/AdvReac Type Severity Reaction Status Date / Time 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 (units unknown) (unknown) (unknown) (no date) (unknown) (unknown) Breast cancer (units unknown) (unknown) (unknown) (no date) (unknown) (unknown) CAD (coronary artery disease) (units unknown) (unknown) (unknown) (no date) (unknown) (unknown) Contract void and provider will offer no further tramadol refills if tramadol (units unknown) (unknown) (unknown) (no date) (unknown) (unknown) : 1995 Acct:[id number] (units unknown) (unknown) (unknown) (no date) (unknown) (unknown) Date of Service: 11/15/22 (units unknown) (unknown) (unknown) (no date) (unknown) (unknown) Departure (units unknown) (unknown) (unknown) (no date) (unknown) (unknown) Discharge Plan (units unknown) (unknown) (unknown) (no date) (unknown) (unknown) Dose Instruction: (units unknown) (unknown) (unknown) (no date) (unknown) (unknown) ER Physician: Stephie Escalante D.O. (units unknown) (unknown) (unknown) (no date) (unknown) (unknown) Emergency Report (units unknown) (unknown) (unknown) (no date) (unknown) (unknown) Endometriosis (units unknown) (unknown) (unknown) (no date) (unknown) (unknown) Family History (units unknown) (unknown) (unknown) (no date) (unknown) (unknown) General (units unknown) (unknown) (unknown) (no date) (unknown) (unknown) Grandmother Ovarian cancer (units unknown) (unknown) (unknown) (no date) (unknown) (unknown) H/O unilateral oophorectomy () (units unknown) (unknown) (unknown) (no date) (unknown) (unknown) H/O: hysterectomy (units unknown) (unknown) (unknown) (no date) (unknown) (unknown) HPI - Abdominal Pain (units unknown) (unknown) (unknown) (no date) (unknown) (unknown) Hematuria (units unknown) (unknown) (unknown) (no date) (unknown) (unknown) History of ureter stent (units unknown) (unknown) (unknown) (no date) (unknown) (unknown) Hold Instructions: NEEDS TO SEE NEUROLOGY (units unknown) (unknown) (unknown) (no date) (unknown) (unknown) Hold Instructions: SEEN BY PSYCHIATRY (units unknown) (unknown) (unknown) (no date) (unknown) (unknown) Home Medications (units unknown) (unknown) (unknown) (no date) (unknown) (unknown) Hyperlipidemia (units unknown) (unknown) (unknown) (no date) (unknown) (unknown) Hypertension (units unknown) (unknown) (unknown) (no date) (unknown) (unknown) INJECT INTRAMUSCULARLY EVERY 20 MINUTES NEEDED FOR ANAPHYLAXIS UNTIL (units unknown) (unknown) (unknown) (no date) (unknown) (unknown) IV DYE] (units unknown) (unknown) (unknown) (no date) (unknown) (unknown) Iodinated Contrast Media Allergy Unknown Verified 04/22/22 14:44 (units unknown) (unknown) (unknown) (no date) (unknown) (unknown) [address] [address] (units unknown) (unknown) (unknown) (no date) (unknown) (unknown) Limit as possible. Prescribed per 03/21 signed pain management contract. (units unknown) (unknown) (unknown) (no date) (unknown) (unknown) Major depressive disorder (units unknown) (unknown) (unknown) (no date) (unknown) (unknown) Medical History (units unknown) (unknown) (unknown) (no date) (unknown) (unknown) Medication Instructions Recorded Confirmed (units unknown) (unknown) (unknown) (no date) (unknown) (unknown) Medication Instructions Recorded (units unknown) (unknown) (unknown) (no date) (unknown) (unknown) Morbid obesity (units unknown) (unknown) (unknown) (no date) (unknown) (unknown) Mother BRCA positive (units unknown) (unknown) (unknown) (no date) (unknown) (unknown) Nephrolithiasis () (units unknown) (unknown) (unknown) (no date) (unknown) (unknown) No Action (units unknown) (unknown) (unknown) (no date) (unknown) (unknown) Ovarian cyst (units unknown) (unknown) (unknown) (no date) (unknown) (unknown) PCOS (polycystic ovarian syndrome) (units unknown) (unknown) (unknown) (no date) (unknown) (unknown) Patellar dislocation (units unknown) (unknown) (unknown) (no date) (unknown) (unknown) Patient History (units unknown) (unknown) (unknown) (no date) (unknown) (unknown) Patient: Calin Jorgensen MR# (units unknown) (unknown) (unknown) (no date) (unknown) (unknown) Pelvic congestion (2014) (units unknown) (unknown) (unknown) (no date) (unknown) (unknown) Penicillins [PENICILLINS] Allergy Mild Verified 04/22/22 14:44 (units unknown) (unknown) (unknown) (no date) (unknown) (unknown) Prescriptions: (units unknown) (unknown) (unknown) (no date) (unknown) (unknown) Previous Rx's (units unknown) (unknown) (unknown) (no date) (unknown) (unknown) Psychogenic nonepileptic seizure (units unknown) (unknown) (unknown) (no date) (unknown) (unknown) RESPONSE (units unknown) (unknown) (unknown) (no date) (unknown) (unknown) Referrals: (units unknown) (unknown) (unknown) (no date) (unknown) (unknown) Related Data (units unknown) (unknown) (unknown) (no date) (unknown) (unknown) Rx Instructions: (units unknown) (unknown) (unknown) (no date) (unknown) (unknown) See Rx Instructions .ROUTE .COMPLEX Qty: 180 0RF (units unknown) (unknown) (unknown) (no date) (unknown) (unknown) See Rx Instructions .ROUTE .COMPLEX Qty: 2 0RF (units unknown) (unknown) (unknown) (no date) (unknown) (unknown) See Rx Instructions PO BEDTIME Qty: 45 2RF (units unknown) (unknown) (unknown) (no date) (unknown) (unknown) Signed By: (units unknown) (unknown) (unknown) (no date) (unknown) (unknown) Smoking Status: Current every day smoker (units unknown) (unknown) (unknown) (no date) (unknown) (unknown) Social History (units unknown) (unknown) (unknown) (no date) (unknown) (unknown) Stated Complaint: abdominal pain, vomiting blood (units unknown) (unknown) (unknown) (no date) (unknown) (unknown) Status post appendectomy (2003) (units unknown) (unknown) (unknown) (no date) (unknown) (unknown) Status post bilatera l salpingectomy (10/21/17) (units unknown) (unknown) (unknown) (no date) (unknown) (unknown) Status post dilation and curettage (2010) (units unknown) (unknown) (unknown) (no date) (unknown) (unknown) Status post dilation and curettage (2011) (units unknown) (unknown) (unknown) (no date) (unknown) (unknown) Status post knee surgery (2007) (units unknown) (unknown) (unknown) (no date) (unknown) (unknown) Status post knee surgery (2012) (units unknown) (unknown) (unknown) (no date) (unknown) (unknown) Status post laparoscopic supracervical hysterectomy (10/21/17) (units unknown) (unknown) (unknown) (no date) (unknown) (unknown) Status post laparoscopy () (units unknown) (unknown) (unknown) (no date) (unknown) (unknown) Status post laparoscopy (2003) (units unknown) (unknown) (unknown) (no date) (unknown) (unknown) Status post laparoscopy (2004) (units unknown) (unknown) (unknown) (no date) (unknown) (unknown) Status post laparoscopy (2011) (units unknown) (unknown) (unknown) (no date) (unknown) (unknown) Status post removal of cervix (units unknown) (unknown) (unknown) (no date) (unknown) (unknown) Status post tonsillectomy and adenoidectomy (units unknown) (unknown) (unknown) (no date) (unknown) (unknown) Substance Use Type: does not use (units unknown) (unknown) (unknown) (no date) (unknown) (unknown) Surgical History (units unknown) (unknown) (unknown) (no date) (unknown) (unknown) TAKE 2 TABLETS BY MOUTH AT BEDTIME NEEDED FOR INSOMNIA (units unknown) (unknown) (unknown) (no date) (unknown) (unknown) Take 1 tab p.o. at HS. May take 1/2 tab p.o. during the day for anxiety (units unknown) (unknown) (unknown) (no date) (unknown) (unknown) Time Seen by Provider: 11/15/22 21:09 (units unknown) (unknown) (unknown) (no date) (unknown) (unknown) Christi Johnson , DNP, INFLAT[employer] BUILDINGS LAMINATOR [Primary Care Provider] (units unknown) (unknown) (unknown) (no date) (unknown) (unknown) [From BACTRIM] (units unknown) (unknown) (unknown) (no date) (unknown) (unknown) [IODINATED CONTRAST MEDIA (units unknown) (unknown) (unknown) (no date) (unknown) (unknown) [METOCLOPRAMIDE] (units unknown) (unknown) (unknown) (no date) (unknown) (unknown) [PROCHLORPERAZINE] (units unknown) (unknown) (unknown) (no date) (unknown) (unknown) [SHELLFISH DERIVED] (units unknown) (unknown) (unknown) (no date) (unknown) (unknown) adhesive [ADHESIVE] Allergy Mild Verified 04/22/22 14:44 (units unknown) (unknown) (unknown) (no date) (unknown) (unknown) alcohol intake frequency: holidays/special occasions only (units unknown) (unknown) (unknown) (no date) (unknown) (unknown) amoxicillin [AMOXICILLIN] Allergy Mild Verified 04/22/22 14:44 (units unknown) (unknown) (unknown) (no date) (unknown) (unknown) apply to single elbow, wrist or hand; for hand includes palm/fingers/back of (units unknown) (unknown) (unknown) (no date) (unknown) (unknown) cephalexin [CEPHALEXIN] Allergy Unknown Verified 04/22/22 14:44 (units unknown) (unknown) (unknown) (no date) (unknown) (unknown) ciprofloxacin [CIPROFLOXACIN] Allergy Unknown Verified 04/22/22 14:44 (units unknown) (unknown) (unknown) (no date) (unknown) (unknown) clindamycin [CLINDAMYCIN] Allergy Unknown Verified 04/22/22 14:44 (units unknown) (unknown) (unknown) (no date) (unknown) (unknown) diazepam 10 mg table t 10 mg PO QID #120 tabs 10/12/21 (units unknown) (unknown) (unknown) (no date) (unknown) (unknown) diazepam 10 mg tablet (units unknown) (unknown) (unknown) (no date) (unknown) (unknown) diazepam 5 mg tablet (Valium) 5 mg PO TID PRN muscle spasm #10 03/24/22 (units unknown) (unknown) (unknown) (no date) (unknown) (unknown) diazepam [Valium] 5 mg tablet (units unknown) (unknown) (unknown) (no date) (unknown) (unknown) diclofenac sodium 1 % gel (units unknown) (unknown) (unknown) (no date) (unknown) (unknown) diclofenac sodium 1 % topical gel 2 g topical QID #100 grams 05/05/22 (units unknown) (unknown) (unknown) (no date) (unknown) (unknown) doxycycline [DOXYCYCLINE] Allergy Mild Verified 04/22/22 14:44 (units unknown) (unknown) (unknown) (no date) (unknown) (unknown) epinephrine 0.3 mg/0.3 mL See Rx Instructions .Route 02/27/22 (units unknown) (unknown) (unknown) (no date) (unknown) (unknown) epinephrine 0.3 mg/0.3 mL auto-injector (units unknown) (unknown) (unknown) (no date) (unknown) (unknown) hand (units unknown) (unknown) (unknown) (no date) (unknown) (unknown) household members: spouse and children (units unknown) (unknown) (unknown) (no date) (unknown) (unknown) hydrocodone Allergy Mild rash Verified 04/22/22 14:44 (units unknown) (unknown) (unknown) (no date) (unknown) (unknown) injection, auto-injector .COMPLEX #2 ea (units unknown) (unknown) (unknown) (no date) (unknown) (unknown) iodine [IODINE] Allergy Mild Verified 04/22/22 14:44 (units unknown) (unknown) (unknown) (no date) (unknown) (unknown) lamotrigine 200 mg tablet 200 mg PO DAILY #30 tabs 01/18/22 (units unknown) (unknown) (unknown) (no date) (unknown) (unknown) lamotrigine 200 mg tablet (units unknown) (unknown) (unknown) (no date) (unknown) (unknown) latex [LATEX] Allerg y Unknown Verified 04/22/22 14:44 (units unknown) (unknown) (unknown) (no date) (unknown) (unknown) lidocaine AdvReac Palpitation Verified 04/22/22 14:44 (units unknown) (unknown) (unknown) (no date) (unknown) (unknown) lives independently: Yes (units unknown) (unknown) (unknown) (no date) (unknown) (unknown) marital status: (units unknown) (unknown) (unknown) (no date) (unknown) (unknown) metformin 500 mg tablet 500 mg PO BID #60 tabs 02/21/22 (units unknown) (unknown) (unknown) (no date) (unknown) (unknown) metformin 500 mg tablet (units unknown) (unknown) (unknown) (no date) (unknown) (unknown) metoclopramide Allergy Mild Verified 04/22/22 14:44 (units unknown) (unknown) (unknown) (no date) (unknown) (unknown) mg tablet (Percocet) (units unknown) (unknown) (unknown) (no date) (unknown) (unknown) occupational status: employed (units unknown) (unknown) (unknown) (no date) (unknown) (unknown) oxycodone 10 mg tablet 5 mg PO Q6H PRN pain #14 tabs 05/05/22 (units unknown) (unknown) (unknown) (no date) (unknown) (unknown) oxycodone 10 mg tablet (units unknown) (unknown) (unknown) (no date) (unknown) (unknown) oxycodone-acetaminop h en 5 mg-325 1 tab PO Q8H PRN pain #6 tabs 04/22/22 (units unknown) (unknown) (unknown) (no date) (unknown) (unknown) oxycodone-acetaminop h en [Percocet] 5-325 mg tablet (units unknown) (unknown) (unknown) (no date) (unknown) (unknown) prochlorperazine Allergy Mild Verified 04/22/22 14:44 (units unknown) (unknown) (unknown) (no date) (unknown) (unknown) quetiapine 100 mg tablet 100 mg PO BEDTIME 02/27/22 02/27/22 (units unknown) (unknown) (unknown) (no date) (unknown) (unknown) quetiapine 100 mg tablet (units unknown) (unknown) (unknown) (no date) (unknown) (unknown) quetiapine 25 mg tablet See Rx Instructions PO BEDTIME #45 01/18/22 (units unknown) (unknown) (unknown) (no date) (unknown) (unknown) quetiapine 25 mg tablet (units unknown) (unknown) (unknown) (no date) (unknown) (unknown) received per another provider. (units unknown) (unknown) (unknown) (no date) (unknown) (unknown) s (units unknown) (unknown) (unknown) (no date) (unknown) (unknown) sertraline 100 mg tablet 200 mg PO DAILY #60 tabs 01/18/22 (units unknown) (unknown) (unknown) (no date) (unknown) (unknown) sertraline 100 mg tablet (units unknown) (unknown) (unknown) (no date) (unknown) (unknown) shellfish derived Allergy Severe ANAPHYLAXIS Verified 04/22/22 14:44 (units unknown) (unknown) (unknown) (no date) (unknown) (unknown) sulfamethoxazole Allergy Mild RASH Verified 04/22/22 14:44 (units unknown) (unknown) (unknown) (no date) (unknown) (unknown) tabs (units unknown) (unknown) (unknown) (no date) (unknown) (unknown) tobacco type: vaping (units unknown) (unknown) (unknown) (no date) (unknown) (unknown) tramadol 50 mg table t 100 mg PO BID PRN severe pain 03/22/22 (units unknown) (unknown) (unknown) (no date) (unknown) (unknown) tramadol 50 mg tablet (units unknown) (unknown) (unknown) (no date) (unknown) (unknown) trazodone 100 mg tablet See Rx Instructions .Route 11/20/21 (units unknown) (unknown) (unknown) (no date) (unknown) (unknown) trazodone 100 mg tablet (units unknown) (unknown) (unknown) (no date) (unknown) (unknown) trimethoprim [From BACTRIM] Allergy Mild RASH Verified 04/22/22 14:44 (units unknown) (unknown) Result panel 340 (unknown) (no date) (unknown) (unknown) 1 (units unknown) (unknown) (unknown) (no date) (unknown) (unknown) 1.0 e.u./dl (unknown) (unknown) (no date) (unknown) (unknown) 1.025 (units unknown) (unknown) (unknown) (no date) (unknown) (unknown) 3 (units unknown) (unknown) (unknown) (no date) (unknown) (unknown) 6.5 (units unknown) (unknown) (unknown) (no date) (unknown) (unknown) CLOUDY (units unknown) (unknown) (unknown) (no date) (unknown) (unknown) NEGATIVE (units unknown) (unknown) (unknown) (no date) (unknown) (unknown) NEGATIVE g/dl (unknown) (unknown) (no date) (unknown) (unknown) RED (units unknown) (unknown) (unknown) (no date) (unknown) (unknown) RED (units unknown) (unknown) Result panel 341 (unknown) (no date) (unknown) (unknown) >100/HPF (units unknown) (unknown) (unknown) (no date) (unknown) (unknown) 1 (units unknown) (unknown) (unknown) (no date) (unknown) (unknown) 1-5 /HPF (units unknown) (unknown) (unknown) (no date) (unknown) (unknown) 1-5 /HPF (units unknown) (unknown) (unknown) (no date) (unknown) (unknown) 1-5/HPF (units unknown) (unknown) (unknown) (no date) (unknown) (unknown) 1.0 e.u./dl (unknown) (unknown) (no date) (unknown) (unknown) 1.025 (units unknown) (unknown) (unknown) (no date) (unknown) (unknown) 3 (units unknown) (unknown) (unknown) (no date) (unknown) (unknown) 6.5 (units unknown) (unknown) (unknown) (no date) (unknown) (unknown) CLOUDY (units unknown) (unknown) (unknown) (no date) (unknown) (unknown) NEGATIVE (units unknown) (unknown) (unknown) (no date) (unknown) (unknown) NEGATIVE g/dl (unknown) (unknown) (no date) (unknown) (unknown) Occasional (0-1) (units unknown) (unknown) (unknown) (no date) (unknown) (unknown) RED (units unknown) (unknown) (unknown) (no date) (unknown) (unknown) RED (units unknown) (unknown) (unknown) (no date) (unknown) (unknown) Specimen Cultured (units unknown) (unknown) Result panel 342 (unknown) (no date) (unknown) (unknown) (no value) (units unknown) (unknown) (unknown) (no date) (unknown) (unknown) (scale score 7-10) #60 tabs (units unknown) (unknown) (unknown) (no date) (unknown) (unknown) .COMPLEX #180 tabs (units unknown) (unknown) (unknown) (no date) (unknown) (unknown) 1 tab PO Q8H PRN (Reason: pain) Qty: 6 0RF (units unknown) (unknown) (unknown) (no date) (unknown) (unknown) 10 mg PO QID Qty: 12 0 2RF (units unknown) (unknown) (unknown) (no date) (unknown) (unknown) 100 mg PO BEDTIME (units unknown) (unknown) (unknown) (no date) (unknown) (unknown) 100 mg PO BID PRN (Reason: severe pain (scale score 7-10)) Qty: 60 0RF (units unknown) (unknown) (unknown) (no date) (unknown) (unknown) 2 g topical QID Qty: 100 3RF (units unknown) (unknown) (unknown) (no date) (unknown) (unknown) 200 mg PO DAILY Qty: 30 2RF (units unknown) (unknown) (unknown) (no date) (unknown) (unknown) 200 mg PO DAILY Qty: 60 2RF (units unknown) (unknown) (unknown) (no date) (unknown) (unknown) 5 mg PO Q6H PRN (Reason: pain) Qty: 14 0RF (units unknown) (unknown) (unknown) (no date) (unknown) (unknown) 5 mg PO TID PRN (Reason: muscle spasm) Qty: 10 0RF (units unknown) (unknown) (unknown) (no date) (unknown) (unknown) 500 mg PO BID Qty: 6 0 0RF (units unknown) (unknown) (unknown) (no date) (unknown) (unknown) : [id number] (units unknown) (unknown) (unknown) (no date) (unknown) (unknown) Age/Sex: 27 / F (units unknown) (unknown) (unknown) (no date) (unknown) (unknown) Allergies (units unknown) (unknown) (unknown) (no date) (unknown) (unknown) Allergy/AdvReac Type Severity Reaction Status Date / Time 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 (units unknown) (unknown) (unknown) (no date) (unknown) (unknown) Breast cancer (units unknown) (unknown) (unknown) (no date) (unknown) (unknown) CAD (coronary artery disease) (units unknown) (unknown) (unknown) (no date) (unknown) (unknown) Chief Complaint: Abdominal Pain (units unknown) (unknown) (unknown) (no date) (unknown) (unknown) Contract void and provider will offer no further tramadol refills if tramadol (units unknown) (unknown) (unknown) (no date) (unknown) (unknown) : 1995 Acct:[id number] (units unknown) (unknown) (unknown) (no date) (unknown) (unknown) Date of Service: 11/15/22 (units unknown) (unknown) (unknown) (no date) (unknown) (unknown) Departure (units unknown) (unknown) (unknown) (no date) (unknown) (unknown) Discharge Plan (units unknown) (unknown) (unknown) (no date) (unknown) (unknown) Dose Instruction: (units unknown) (unknown) (unknown) (no date) (unknown) (unknown) ER Physician: Stephie Escalante D.O. (units unknown) (unknown) (unknown) (no date) (unknown) (unknown) Emergency Report (units unknown) (unknown) (unknown) (no date) (unknown) (unknown) Endometriosis (units unknown) (unknown) (unknown) (no date) (unknown) (unknown) Family History (units unknown) (unknown) (unknown) (no date) (unknown) (unknown) General (units unknown) (unknown) (unknown) (no date) (unknown) (unknown) Grandmother Ovarian cancer (units unknown) (unknown) (unknown) (no date) (unknown) (unknown) H/O unilateral oophorectomy () (units unknown) (unknown) (unknown) (no date) (unknown) (unknown) H/O: hysterectomy (units unknown) (unknown) (unknown) (no date) (unknown) (unknown) HPI - Abdominal Pain (units unknown) (unknown) (unknown) (no date) (unknown) (unknown) Hematuria (units unknown) (unknown) (unknown) (no date) (unknown) (unknown) History of ureter stent (units unknown) (unknown) (unknown) (no date) (unknown) (unknown) Hold Instructions: NEEDS TO SEE NEUROLOGY (units unknown) (unknown) (unknown) (no date) (unknown) (unknown) Hold Instructions: SEEN BY PSYCHIATRY (units unknown) (unknown) (unknown) (no date) (unknown) (unknown) Home Medications (units unknown) (unknown) (unknown) (no date) (unknown) (unknown) Hyperlipidemia (units unknown) (unknown) (unknown) (no date) (unknown) (unknown) Hypertension (units unknown) (unknown) (unknown) (no date) (unknown) (unknown) INJECT INTRAMUSCULARLY EVERY 20 MINUTES NEEDED FOR ANAPHYLAXIS UNTIL (units unknown) (unknown) (unknown) (no date) (unknown) (unknown) IV DYE] (units unknown) (unknown) (unknown) (no date) (unknown) (unknown) Iodinated Contrast Media Allergy Unknown Verified 04/22/22 14:44 (units unknown) (unknown) (unknown) (no date) (unknown) (unknown) [address] [address] (units unknown) (unknown) (unknown) (no date) (unknown) (unknown) Limit as possible. Prescribed per 03/21 signed pain management contract. (units unknown) (unknown) (unknown) (no date) (unknown) (unknown) Major depressive disorder (units unknown) (unknown) (unknown) (no date) (unknown) (unknown) Medical History (units unknown) (unknown) (unknown) (no date) (unknown) (unknown) Medication Instructions Recorded Confirmed (units unknown) (unknown) (unknown) (no date) (unknown) (unknown) Medication Instructions Recorded (units unknown) (unknown) (unknown) (no date) (unknown) (unknown) Morbid obesity (units unknown) (unknown) (unknown) (no date) (unknown) (unknown) Mother BRCA positive (units unknown) (unknown) (unknown) (no date) (unknown) (unknown) Nephrolithiasis () (units unknown) (unknown) (unknown) (no date) (unknown) (unknown) No Action (units unknown) (unknown) (unknown) (no date) (unknown) (unknown) Ovarian cyst (units unknown) (unknown) (unknown) (no date) (unknown) (unknown) PCOS (polycystic ovarian syndrome) (units unknown) (unknown) (unknown) (no date) (unknown) (unknown) Patellar dislocation (units unknown) (unknown) (unknown) (no date) (unknown) (unknown) Patient History (units unknown) (unknown) (unknown) (no date) (unknown) (unknown) Patient: Calin Jorgensen MR# (units unknown) (unknown) (unknown) (no date) (unknown) (unknown) Pelvic congestion (2013) (units unknown) (unknown) (unknown) (no date) (unknown) (unknown) Penicillins [PENICILLINS] Allergy Mild Verified 04/22/22 14:44 (units unknown) (unknown) (unknown) (no date) (unknown) (unknown) Prescriptions: (units unknown) (unknown) (unknown) (no date) (unknown) (unknown) Previous Rx's (units unknown) (unknown) (unknown) (no date) (unknown) (unknown) Psychogenic nonepileptic seizure (units unknown) (unknown) (unknown) (no date) (unknown) (unknown) RESPONSE (units unknown) (unknown) (unknown) (no date) (unknown) (unknown) Referrals: (units unknown) (unknown) (unknown) (no date) (unknown) (unknown) Related Data (units unknown) (unknown) (unknown) (no date) (unknown) (unknown) Rx Instructions: (units unknown) (unknown) (unknown) (no date) (unknown) (unknown) See Rx Instructions .ROUTE .COMPLEX Qty: 180 0RF (units unknown) (unknown) (unknown) (no date) (unknown) (unknown) See Rx Instructions .ROUTE .COMPLEX Qty: 2 0RF (units unknown) (unknown) (unknown) (no date) (unknown) (unknown) See Rx Instructions PO BEDTIME Qty: 45 2RF (units unknown) (unknown) (unknown) (no date) (unknown) (unknown) Signed By: (units unknown) (unknown) (unknown) (no date) (unknown) (unknown) Smoking Status: Current every day smoker (units unknown) (unknown) (unknown) (no date) (unknown) (unknown) Social History (units unknown) (unknown) (unknown) (no date) (unknown) (unknown) Stated Complaint: abdominal pain, vomiting blood (units unknown) (unknown) (unknown) (no date) (unknown) (unknown) Status post appendectomy (2003) (units unknown) (unknown) (unknown) (no date) (unknown) (unknown) Status post bilatera l salpingectomy (10/21/17) (units unknown) (unknown) (unknown) (no date) (unknown) (unknown) Status post dilation and curettage (2010) (units unknown) (unknown) (unknown) (no date) (unknown) (unknown) Status post dilation and curettage (2011) (units unknown) (unknown) (unknown) (no date) (unknown) (unknown) Status post knee surgery (2007) (units unknown) (unknown) (unknown) (no date) (unknown) (unknown) Status post knee surgery (2012) (units unknown) (unknown) (unknown) (no date) (unknown) (unknown) Status post laparoscopic supracervical hysterectomy (10/21/17) (units unknown) (unknown) (unknown) (no date) (unknown) (unknown) Status post laparoscopy () (units unknown) (unknown) (unknown) (no date) (unknown) (unknown) Status post laparoscopy (2004) (units unknown) (unknown) (unknown) (no date) (unknown) (unknown) Status post laparoscopy (2004) (units unknown) (unknown) (unknown) (no date) (unknown) (unknown) Status post laparoscopy (2011) (units unknown) (unknown) (unknown) (no date) (unknown) (unknown) Status post removal of cervix (units unknown) (unknown) (unknown) (no date) (unknown) (unknown) Status post tonsillectomy and adenoidectomy (units unknown) (unknown) (unknown) (no date) (unknown) (unknown) Substance Use Type: does not use (units unknown) (unknown) (unknown) (no date) (unknown) (unknown) Surgical History (units unknown) (unknown) (unknown) (no date) (unknown) (unknown) TAKE 2 TABLETS BY MOUTH AT BEDTIME NEEDED FOR INSOMNIA (units unknown) (unknown) (unknown) (no date) (unknown) (unknown) Take 1 tab p.o. at HS. May take 1/2 tab p.o. during the day for anxiety (units unknown) (unknown) (unknown) (no date) (unknown) (unknown) Time Seen by Provider: 11/15/22 21:09 (units unknown) (unknown) (unknown) (no date) (unknown) (unknown) Christi Johnson , JORDAN, INFLATABLE BUILDINGS LAMINATOR [Primary Care Provider] (units unknown) (unknown) (unknown) (no date) (unknown) (unknown) [From BACTRIM] (units unknown) (unknown) (unknown) (no date) (unknown) (unknown) [IODINATED CONTRAST MEDIA (units unknown) (unknown) (unknown) (no date) (unknown) (unknown) [METOCLOPRAMIDE] (units unknown) (unknown) (unknown) (no date) (unknown) (unknown) [PROCHLORPERAZINE] (units unknown) (unknown) (unknown) (no date) (unknown) (unknown) [SHELLFISH DERIVED] (units unknown) (unknown) (unknown) (no date) (unknown) (unknown) adhesive [ADHESIVE] Allergy Mild Verified 04/22/22 14:44 (units unknown) (unknown) (unknown) (no date) (unknown) (unknown) alcohol intake frequency: holidays/special occasions only (units unknown) (unknown) (unknown) (no date) (unknown) (unknown) amoxicillin [AMOXICILLIN] Allergy Mild Verified 04/22/22 14:44 (units unknown) (unknown) (unknown) (no date) (unknown) (unknown) apply to single elbow, wrist or hand; for hand includes palm/fingers/back of (units unknown) (unknown) (unknown) (no date) (unknown) (unknown) cephalexin [CEPHALEXIN] Allergy Unknown Verified 04/22/22 14:44 (units unknown) (unknown) (unknown) (no date) (unknown) (unknown) ciprofloxacin [CIPROFLOXACIN] Allergy Unknown Verified 04/22/22 14:44 (units unknown) (unknown) (unknown) (no date) (unknown) (unknown) clindamycin [CLINDAMYCIN] Allergy Unknown Verified 04/22/22 14:44 (units unknown) (unknown) (unknown) (no date) (unknown) (unknown) diazepam 10 mg table t 10 mg PO QID #120 tabs 10/12/21 (units unknown) (unknown) (unknown) (no date) (unknown) (unknown) diazepam 10 mg tablet (units unknown) (unknown) (unknown) (no date) (unknown) (unknown) diazepam 5 mg tablet (Valium) 5 mg PO TID PRN muscle spasm #10 10/19/21 (units unknown) (unknown) (unknown) (no date) (unknown) (unknown) diazepam [Valium] 5 mg tablet (units unknown) (unknown) (unknown) (no date) (unknown) (unknown) diclofenac sodium 1 % gel (units unknown) (unknown) (unknown) (no date) (unknown) (unknown) diclofenac sodium 1 % topical gel 2 g topical QID #100 grams 05/05/22 (units unknown) (unknown) (unknown) (no date) (unknown) (unknown) doxycycline [DOXYCYCLINE] Allergy Mild Verified 04/22/22 14:44 (units unknown) (unknown) (unknown) (no date) (unknown) (unknown) epinephrine 0.3 mg/0.3 mL See Rx Instructions .Route 02/27/22 (units unknown) (unknown) (unknown) (no date) (unknown) (unknown) epinephrine 0.3 mg/0.3 mL auto-injector (units unknown) (unknown) (unknown) (no date) (unknown) (unknown) hand (units unknown) (unknown) (unknown) (no date) (unknown) (unknown) household members: spouse and children (units unknown) (unknown) (unknown) (no date) (unknown) (unknown) hydrocodone Allergy Mild rash Verified 04/22/22 14:44 (units unknown) (unknown) (unknown) (no date) (unknown) (unknown) injection, auto-injector .COMPLEX #2 ea (units unknown) (unknown) (unknown) (no date) (unknown) (unknown) iodine [IODINE] Allergy Mild Verified 04/22/22 14:44 (units unknown) (unknown) (unknown) (no date) (unknown) (unknown) lamotrigine 200 mg tablet 200 mg PO DAILY #30 tabs 01/18/22 (units unknown) (unknown) (unknown) (no date) (unknown) (unknown) lamotrigine 200 mg tablet (units unknown) (unknown) (unknown) (no date) (unknown) (unknown) latex [LATEX] Allerg y Unknown Verified 04/22/22 14:44 (units unknown) (unknown) (unknown) (no date) (unknown) (unknown) lidocaine AdvReac Palpitation Verified 04/22/22 14:44 (units unknown) (unknown) (unknown) (no date) (unknown) (unknown) lives independently: Yes (units unknown) (unknown) (unknown) (no date) (unknown) (unknown) marital status: (units unknown) (unknown) (unknown) (no date) (unknown) (unknown) metformin 500 mg tablet 500 mg PO BID #60 tabs 02/21/22 (units unknown) (unknown) (unknown) (no date) (unknown) (unknown) metformin 500 mg tablet (units unknown) (unknown) (unknown) (no date) (unknown) (unknown) metoclopramide Allergy Mild Verified 04/22/22 14:44 (units unknown) (unknown) (unknown) (no date) (unknown) (unknown) mg tablet (Percocet) (units unknown) (unknown) (unknown) (no date) (unknown) (unknown) occupational status: employed (units unknown) (unknown) (unknown) (no date) (unknown) (unknown) oxycodone 10 mg tablet 5 mg PO Q6H PRN pain #14 tabs 05/05/22 (units unknown) (unknown) (unknown) (no date) (unknown) (unknown) oxycodone 10 mg tablet (units unknown) (unknown) (unknown) (no date) (unknown) (unknown) oxycodone-acetaminop h en 5 mg-325 1 tab PO Q8H PRN pain #6 tabs 04/22/22 (units unknown) (unknown) (unknown) (no date) (unknown) (unknown) oxycodone-acetaminop h en [Percocet] 5-325 mg tablet (units unknown) (unknown) (unknown) (no date) (unknown) (unknown) prochlorperazine Allergy Mild Verified 04/22/22 14:44 (units unknown) (unknown) (unknown) (no date) (unknown) (unknown) quetiapine 100 mg tablet 100 mg PO BEDTIME 02/27/22 02/27/22 (units unknown) (unknown) (unknown) (no date) (unknown) (unknown) quetiapine 100 mg tablet (units unknown) (unknown) (unknown) (no date) (unknown) (unknown) quetiapine 25 mg tablet See Rx Instructions PO BEDTIME #45 01/18/22 (units unknown) (unknown) (unknown) (no date) (unknown) (unknown) quetiapine 25 mg tablet (units unknown) (unknown) (unknown) (no date) (unknown) (unknown) received per another provider. (units unknown) (unknown) (unknown) (no date) (unknown) (unknown) s (units unknown) (unknown) (unknown) (no date) (unknown) (unknown) sertraline 100 mg tablet 200 mg PO DAILY #60 tabs 01/18/22 (units unknown) (unknown) (unknown) (no date) (unknown) (unknown) sertraline 100 mg tablet (units unknown) (unknown) (unknown) (no date) (unknown) (unknown) shellfish derived Allergy Severe ANAPHYLAXIS Verified 04/22/22 14:44 (units unknown) (unknown) (unknown) (no date) (unknown) (unknown) sulfamethoxazole Allergy Mild RASH Verified 04/22/22 14:44 (units unknown) (unknown) (unknown) (no date) (unknown) (unknown) tabs (units unknown) (unknown) (unknown) (no date) (unknown) (unknown) tobacco type: vaping (units unknown) (unknown) (unknown) (no date) (unknown) (unknown) tramadol 50 mg table t 100 mg PO BID PRN severe pain 03/22/22 (units unknown) (unknown) (unknown) (no date) (unknown) (unknown) tramadol 50 mg tablet (units unknown) (unknown) (unknown) (no date) (unknown) (unknown) trazodone 100 mg tablet See Rx Instructions .Route 11/20/21 (units unknown) (unknown) (unknown) (no date) (unknown) (unknown) trazodone 100 mg tablet (units unknown) (unknown) (unknown) (no date) (unknown) (unknown) trimethoprim [From BACTRIM] Allergy Mild RASH Verified 04/22/22 14:44 (units unknown) (unknown) Result panel 343 (unknown) (no date) (unknown) (unknown) > 60 ml/min (unknown) (unknown) (no date) (unknown) (unknown) > 60 ml/min (unknown) (unknown) (no date) (unknown) (unknown) 0.5 mg/dl (unknown) (unknown) (no date) (unknown) (unknown) 0.87 mg/dl (unknown) (unknown) (no date) (unknown) (unknown) 1.2 mmol/l (unknown) (unknown) (no date) (unknown) (unknown) 1.6 (units unknown) (unknown) (unknown) (no date) (unknown) (unknown) 1.9 % (unknown) (unknown) (no date) (unknown) (unknown) 100 /ul (unknown) (unknown) (no date) (unknown) (unknown) 100 /ul (unknown) (unknown) (no date) (unknown) (unknown) 103 mmol/l (unknown) (unknown) (no date) (unknown) (unknown) 12.6 g/dl (unknown) (unknown) (no date) (unknown) (unknown) 12.7 % (unknown) (unknown) (no date) (unknown) (unknown) 136 mmol/l (unknown) (unknown) (no date) (unknown) (unknown) 15 mg/dl (unknown) (unknown) (no date) (unknown) (unknown) 16 iu/l (unknown) (unknown) (no date) (unknown) (unknown) 16 iu/l (unknown) (unknown) (no date) (unknown) (unknown) 17.2 (units unknown) (unknown) (unknown) (no date) (unknown) (unknown) 2.0 % (unknown) (unknown) (no date) (unknown) (unknown) 2.5 g/dl (unknown) (unknown) (no date) (unknown) (unknown) 2200 /ul (unknown) (unknown) (no date) (unknown) (unknown) 245 x10 3/ul (unknown) (unknown) (no date) (unknown) (unknown) 27 mmol/l (unknown) (unknown) (no date) (unknown) (unknown) 3.6 mmol/l (unknown) (unknown) (no date) (unknown) (unknown) 3.9 g/dl (unknown) (unknown) (no date) (unknown) (unknown) 31.2 pg (unknown) (unknown) (no date) (unknown) (unknown) 34.4 % (unknown) (unknown) (no date) (unknown) (unknown) 35.3 % (unknown) (unknown) (no date) (unknown) (unknown) 35.8 % (unknown) (unknown) (no date) (unknown) (unknown) 3500 /ul (unknown) (unknown) (no date) (unknown) (unknown) 4.04 x10 6/ul (unknown) (unknown) (no date) (unknown) (unknown) 400 /ul (unknown) (unknown) (no date) (unknown) (unknown) 43 u/l (unknown) (unknown) (no date) (unknown) (unknown) 54.8 % (unknown) (unknown) (no date) (unknown) (unknown) 6.4 g/dl (unknown) (unknown) (no date) (unknown) (unknown) 6.4 x10 3/ul (unknown) (unknown) (no date) (unknown) (unknown) 6.9 % (unknown) (unknown) (no date) (unknown) (unknown) 8.3 mg/dl (unknown) (unknown) (no date) (unknown) (unknown) 86 u/l (unknown) (unknown) (no date) (unknown) (unknown) 88.6 fl (unknown) (unknown) (no date) (unknown) (unknown) 96 mg/dl (unknown) (unknown) (no date) (unknown) (unknown) 96 mg/dl (unknown) Result panel 344 (unknown) (no date) (unknown) (unknown) (no value) (units unknown) (unknown) (unknown) (no date) (unknown) (unknown) #: [id number] (units unknown) (unknown) (unknown) (no date) (unknown) (unknown) 11/15/22 (units unknown) (unknown) (unknown) (no date) (unknown) (unknown) [facility] [place] [address] (units unknown) (unknown) (unknown) (no date) (unknown) (unknown) 5 mm (units unknown) (unknown) (unknown) (no date) (unknown) (unknown) Accession Number: [id number] (units unknown) (unknown) (unknown) (no date) (unknown) (unknown) Age/Sex: 27 / F Date of Service: (units unknown) (unknown) (unknown) (no date) (unknown) (unknown) [place] [address] (units unknown) (unknown) (unknown) (no date) (unknown) (unknown) Approved by: Alan Castaneda M.D. on 11/15/2022 at 22:35 (units unknown) (unknown) (unknown) (no date) (unknown) (unknown) Body wall: Unremarkable (units unknown) (unknown) (unknown) (no date) (unknown) (unknown) Bones: No acute or suspicious osseous finding. (units unknown) (unknown) (unknown) (no date) (unknown) (unknown) Bowel and peritoneum : No evidence of small bowel obstruction. There are (units unknown) (unknown) (unknown) (no date) (unknown) (unknown) COMPARISON: [facility], MR, MR ABDOMEN MRCP, 06/12/2022, 10:50. (units unknown) (unknown) (unknown) (no date) (unknown) (unknown) CT Scan Report (units unknown) (unknown) (unknown) (no date) (unknown) (unknown) Consider CT IVP and possible cystoscopy for further workup of hematuria. (units unknown) (unknown) (unknown) (no date) (unknown) (unknown) Consider ultrasound correlation if needed to further workup pelvic organs. (units unknown) (unknown) (unknown) (no date) (unknown) (unknown) : 1995 Acct:[id number] (units unknown) (unknown) (unknown) (no date) (unknown) (unknown) Dictated by: Alan Castaneda M.D. on 11/15/2022 at 22:28 (units unknown) (unknown) (unknown) (no date) (unknown) (unknown) FINDINGS: (units unknown) (unknown) (unknown) (no date) (unknown) (unknown) Hysterectomy. (units unknown) (unknown) (unknown) (no date) (unknown) (unknown) IMPRESSION: No acute abdominal pelvic pathology. No calcified renal stones. (units unknown) (unknown) (unknown) (no date) (unknown) (unknown) INDICATIONS: Left lower quadrant pain, hematuria (units unknown) (unknown) (unknown) (no date) (unknown) (unknown) Image quality: Good (units unknown) (unknown) (unknown) (no date) (unknown) (unknown) [facility] (units unknown) (unknown) (unknown) (no date) (unknown) (unknown) Loc: ED (units unknown) (unknown) (unknown) (no date) (unknown) (unknown) Lower chest: Unremarkable. No hiatal hernia. (units unknown) (unknown) (unknown) (no date) (unknown) (unknown) No hydronephrosis. N o calcified stones. As before, minimally hyperattenuating (units unknown) (unknown) (unknown) (no date) (unknown) (unknown) No (units unknown) (unknown) (unknown) (no date) (unknown) (unknown) Noncontrast 5 mm thick sections acquired from the diaphragms to the symphysis. (units unknown) (unknown) (unknown) (no date) (unknown) (unknown) Ordering Provider: Stephie Escalante D.O. (units unknown) (unknown) (unknown) (no date) (unknown) (unknown) PROCEDURE: CT ABDOME N PELVIS WO CON (units unknown) (unknown) (unknown) (no date) (unknown) (unknown) Patient: Calin Jorgensen MR (units unknown) (unknown) (unknown) (no date) (unknown) (unknown) Pelvis: Bladder is underdistended which limits evaluation. Hysterectomy. (units unknown) (unknown) (unknown) (no date) (unknown) (unknown) Procedure: CT abdome n pelvis wo con (units unknown) (unknown) (unknown) (no date) (unknown) (unknown) Prominent (units unknown) (unknown) (unknown) (no date) (unknown) (unknown) Signed (units unknown) (unknown) (unknown) (no date) (unknown) (unknown) [facility] (units unknown) (unknown) (unknown) (no date) (unknown) (unknown) Solid organs: Liver is unremarkable. 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 No pathologic (units unknown) (unknown) (unknown) (no date) (unknown) (unknown) TECHNIQUE: (units unknown) (unknown) (unknown) (no date) (unknown) (unknown) [facility], CT, CT ABDOMEN PELVIS WITHOUT CONTRAST, 06/11/2022, 19:33. (units unknown) (unknown) (unknown) (no date) (unknown) (unknown) [facility], MR, MR ABDOMEN MRCP, 06/12/2022, 10:50. (units unknown) (unknown) (unknown) (no date) (unknown) (unknown) Vessels and lymph nodes: No abdominal aortic aneurysm or pathologic adenopathy (units unknown) (unknown) (unknown) (no date) (unknown) (unknown) about 14 (units unknown) (unknown) (unknown) (no date) (unknown) (unknown) according to (units unknown) (unknown) (unknown) (no date) (unknown) (unknown) appearance of the renal pyramids bilaterally. (units unknown) (unknown) (unknown) (no date) (unknown) (unknown) by size (units unknown) (unknown) (unknown) (no date) (unknown) (unknown) cm. No adrenal nodules. (units unknown) (unknown) (unknown) (no date) (unknown) (unknown) colonic (units unknown) (unknown) (unknown) (no date) (unknown) (unknown) coronal and sagittal reformats were then performed. For radiation dose (units unknown) (unknown) (unknown) (no date) (unknown) (unknown) criteria. (units unknown) (unknown) (unknown) (no date) (unknown) (unknown) dilation of (units unknown) (unknown) (unknown) (no date) (unknown) (unknown) diverticula. No abscess or pathologic ascites. (units unknown) (unknown) (unknown) (no date) (unknown) (unknown) evaluated on CT, consider ultrasound correlation if needed. (units unknown) (unknown) (unknown) (no date) (unknown) (unknown) following was used: automated exposure control, adjustment of mA and/or kV (units unknown) (unknown) (unknown) (no date) (unknown) (unknown) hydronephrosis. Nonspecific trace hyperattenuating appearance of the renal (units unknown) (unknown) (unknown) (no date) (unknown) (unknown) left ovary, with decreased size of previously seen cyst, reproductive organs are (units unknown) (unknown) (unknown) (no date) (unknown) (unknown) not well (units unknown) (unknown) (unknown) (no date) (unknown) (unknown) patient size. (units unknown) (unknown) (unknown) (no date) (unknown) (unknown) pyramids is (units unknown) (unknown) (unknown) (no date) (unknown) (unknown) reduction, the (units unknown) (unknown) (unknown) (no date) (unknown) (unknown) sometimes associated with nephrocalcinosis. (units unknown) (unknown) (unknown) (no date) (unknown) (unknown) the biliary tree or pancreatic duct. Similar borderline splenomegaly, measuring (units unknown) (unknown) Result panel 345 (unknown) (no date) (unknown) (unknown) < 0.03 ng/ml (unknown) (unknown) (no date) (unknown) (unknown) < 0.03 ng/ml (unknown) Result panel 346 (unknown) (no date) (unknown) (unknown) (no value) (units unknown) (unknown) (unknown) (no date) (unknown) (unknown) (scale score 7-10) #60 tabs (units unknown) (unknown) (unknown) (no date) (unknown) (unknown) .COMPLEX #180 tabs (units unknown) (unknown) (unknown) (no date) (unknown) (unknown) 11/15/22 11/15/22 11/15/22 Range/Units (units unknown) (unknown) (unknown) (no date) (unknown) (unknown) 11/15/22 11/15/22 Range/Units (units unknown) (unknown) (unknown) (no date) (unknown) (unknown) 11/15/22 21:20 (units unknown) (unknown) (unknown) (no date) (unknown) (unknown) 11/15/22 21:32 (units unknown) (unknown) (unknown) (no date) (unknown) (unknown) 11/15/22 22:00 (units unknown) (unknown) (unknown) (no date) (unknown) (unknown) 11/15/22 (units unknown) (unknown) (unknown) (no date) (unknown) (unknown) 1 tab PO Q8H PRN (Reason: pain) Qty: 6 0RF (units unknown) (unknown) (unknown) (no date) (unknown) (unknown) 10 mg PO QID Qty: 12 0 2RF (units unknown) (unknown) (unknown) (no date) (unknown) (unknown) 100 mg PO BEDTIME (units unknown) (unknown) (unknown) (no date) (unknown) (unknown) 100 mg PO BID PRN (Reason: severe pain (scale score 7-10)) Qty: 60 0RF (units unknown) (unknown) (unknown) (no date) (unknown) (unknown) 2 g topical QID Qty: 100 3RF (units unknown) (unknown) (unknown) (no date) (unknown) (unknown) 200 mg PO DAILY Qty: 30 2RF (units unknown) (unknown) (unknown) (no date) (unknown) (unknown) 200 mg PO DAILY Qty: 60 2RF (units unknown) (unknown) (unknown) (no date) (unknown) (unknown) 21:09 11/15/22 (units unknown) (unknown) (unknown) (no date) (unknown) (unknown) 21:20 21:32 21:32 (units unknown) (unknown) (unknown) (no date) (unknown) (unknown) 21:32 21:32 (units unknown) (unknown) (unknown) (no date) (unknown) (unknown) 22:00 (units unknown) (unknown) (unknown) (no date) (unknown) (unknown) 5 mg PO Q6H PRN (Reason: pain) Qty: 14 0RF (units unknown) (unknown) (unknown) (no date) (unknown) (unknown) 5 mg PO TID PRN (Reason: muscle spasm) Qty: 10 0RF (units unknown) (unknown) (unknown) (no date) (unknown) (unknown) 500 mg PO BID Qty: 6 0 0RF (units unknown) (unknown) (unknown) (no date) (unknown) (unknown) : [id number] (units unknown) (unknown) (unknown) (no date) (unknown) (unknown) ALT (<35) IU/L (units unknown) (unknown) (unknown) (no date) (unknown) (unknown) ALT 16 (<35) IU/L (units unknown) (unknown) (unknown) (no date) (unknown) (unknown) AST (14-36) IU/L (units unknown) (unknown) (unknown) (no date) (unknown) (unknown) AST 16 (14-36) IU/L (units unknown) (unknown) (unknown) (no date) (unknown) (unknown) Age/Sex: 27 / F (units unknown) (unknown) (unknown) (no date) (unknown) (unknown) Albumin (3.5-5.0) g/dL (units unknown) (unknown) (unknown) (no date) (unknown) (unknown) Albumin 3.9 (3.5-5.0 ) g/dL (units unknown) (unknown) (unknown) (no date) (unknown) (unknown) Albumin/Globulin Ratio (1.0-2.8) (units unknown) (unknown) (unknown) (no date) (unknown) (unknown) Albumin/Globulin Ratio 1.6 (1.0-2.8) (units unknown) (unknown) (unknown) (no date) (unknown) (unknown) Alkaline Phosphatase (38-126) U/L (units unknown) (unknown) (unknown) (no date) (unknown) (unknown) Alkaline Phosphatase 43 (38-126) U/L (units unknown) (unknown) (unknown) (no date) (unknown) (unknown) Allergies (units unknown) (unknown) (unknown) (no date) (unknown) (unknown) Allergy/AdvReac Type Severity Reaction Status Date / Time 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 (units unknown) (unknown) (unknown) (no date) (unknown) (unknown) BUN (7-17) mg/dL (units unknown) (unknown) (unknown) (no date) (unknown) (unknown) BUN 15 (7-17) mg/dL (units unknown) (unknown) (unknown) (no date) (unknown) (unknown) BUN/Creatinine Ratio (6-22) (units unknown) (unknown) (unknown) (no date) (unknown) (unknown) BUN/Creatinine Ratio 17.2 (6-22) (units unknown) (unknown) (unknown) (no date) (unknown) (unknown) Baso # (Auto) (0-100 ) /uL (units unknown) (unknown) (unknown) (no date) (unknown) (unknown) Baso # (Auto) 100 (0-100) /uL (units unknown) (unknown) (unknown) (no date) (unknown) (unknown) Baso % (Auto) (0-2) % (units unknown) (unknown) (unknown) (no date) (unknown) (unknown) Baso % (Auto) 1.9 (0-2) % (units unknown) (unknown) (unknown) (no date) (unknown) (unknown) Bedside Urine Bilirubin - Negative (units unknown) (unknown) (unknown) (no date) (unknown) (unknown) Bedside Urine Glucos e Negative (units unknown) (unknown) (unknown) (no date) (unknown) (unknown) Bedside Urine Ketone - Negative (units unknown) (unknown) (unknown) (no date) (unknown) (unknown) Bedside Urine Leukocytes + 70 (units unknown) (unknown) (unknown) (no date) (unknown) (unknown) Bedside Urine Nitrit e - Negative (units unknown) (unknown) (unknown) (no date) (unknown) (unknown) Bedside Urine Occult Blood - Negative (units unknown) (unknown) (unknown) (no date) (unknown) (unknown) Bedside Urine Protei n + 30 (units unknown) (unknown) (unknown) (no date) (unknown) (unknown) Bedside Urine Urobilinogen +/- 1mg (units unknown) (unknown) (unknown) (no date) (unknown) (unknown) Bedside Urine pH 6.0 (units unknown) (unknown) (unknown) (no date) (unknown) (unknown) Blood Pressure 140/6 3 04/20/23 21:09 (units unknown) (unknown) (unknown) (no date) (unknown) (unknown) Blood Pressure 140/6 3 140/63 (units unknown) (unknown) (unknown) (no date) (unknown) (unknown) Breast cancer (units unknown) (unknown) (unknown) (no date) (unknown) (unknown) CAD (coronary artery disease) (units unknown) (unknown) (unknown) (no date) (unknown) (unknown) CBC Auto Diff [Complete Blood Count AUTO DIFF] Stat (units unknown) (unknown) (unknown) (no date) (unknown) (unknown) CMP [Comprehensive Metabolic Panel] Stat (units unknown) (unknown) (unknown) (no date) (unknown) (unknown) CT abdomen pelvis wo con Stat (units unknown) (unknown) (unknown) (no date) (unknown) (unknown) Calcium (8.4-10.2) mg/dL (units unknown) (unknown) (unknown) (no date) (unknown) (unknown) Calcium 8.3 L (8.4-10.2) mg/dL (units unknown) (unknown) (unknown) (no date) (unknown) (unknown) Carbon Dioxide (22-32) mmol/L (units unknown) (unknown) (unknown) (no date) (unknown) (unknown) Carbon Dioxide 27 (22-32) mmol/L (units unknown) (unknown) (unknown) (no date) (unknown) (unknown) Chief Complaint: Abdominal Pain (units unknown) (unknown) (unknown) (no date) (unknown) (unknown) Chloride (98-107) mmol/L (units unknown) (unknown) (unknown) (no date) (unknown) (unknown) Chloride 103 (98-107 ) mmol/L (units unknown) (unknown) (unknown) (no date) (unknown) (unknown) Contract void and provider will offer no further tramadol refills if tramadol (units unknown) (unknown) (unknown) (no date) (unknown) (unknown) Course (units unknown) (unknown) (unknown) (no date) (unknown) (unknown) Creatinine (0.52-1.04) mg/dL (units unknown) (unknown) (unknown) (no date) (unknown) (unknown) Creatinine 0.87 (0.52-1.04) mg/dL (units unknown) (unknown) (unknown) (no date) (unknown) (unknown) : 1995 Acct:[id number] (units unknown) (unknown) (unknown) (no date) (unknown) (unknown) Date of Service: 11/15/22 (units unknown) (unknown) (unknown) (no date) (unknown) (unknown) Departure (units unknown) (unknown) (unknown) (no date) (unknown) (unknown) Diphenhydramine HCl (Diphenhydramine 50 Mg/Ml Vial) 25 mg IV NOW ONE (units unknown) (unknown) (unknown) (no date) (unknown) (unknown) Discharge Plan (units unknown) (unknown) (unknown) (no date) (unknown) (unknown) Discontinued Medications (units unknown) (unknown) (unknown) (no date) (unknown) (unknown) Documented By: SPF (units unknown) (unknown) (unknown) (no date) (unknown) (unknown) Dose Instruction: (units unknown) (unknown) (unknown) (no date) (unknown) (unknown) ED Orders (units unknown) (unknown) (unknown) (no date) (unknown) (unknown) ER Physician: Stephie Escalante D.O. (units unknown) (unknown) (unknown) (no date) (unknown) (unknown) Emergency Report (units unknown) (unknown) (unknown) (no date) (unknown) (unknown) Endometriosis (units unknown) (unknown) (unknown) (no date) (unknown) (unknown) Eos # (Auto) (0-450) /uL (units unknown) (unknown) (unknown) (no date) (unknown) (unknown) Eos # (Auto) 100 (0-450) /uL (units unknown) (unknown) (unknown) (no date) (unknown) (unknown) Eos % (Auto) (2-4) % (units unknown) (unknown) (unknown) (no date) (unknown) (unknown) Eos % (Auto) 2.0 (2-4) % (units unknown) (unknown) (unknown) (no date) (unknown) (unknown) Esterase (units unknown) (unknown) (unknown) (no date) (unknown) (unknown) Estimated GFR > 60 (>60) mL/min (units unknown) (unknown) (unknown) (no date) (unknown) (unknown) Estimated GFR (>60) mL/min (units unknown) (unknown) (unknown) (no date) (unknown) (unknown) Exam (units unknown) (unknown) (unknown) (no date) (unknown) (unknown) Family History (units unknown) (unknown) (unknown) (no date) (unknown) (unknown) General (units unknown) (unknown) (unknown) (no date) (unknown) (unknown) Globulin (1.7-4.1) g/dL (units unknown) (unknown) (unknown) (no date) (unknown) (unknown) Globulin 2.5 (1.7-4.1) g/dL (units unknown) (unknown) (unknown) (no date) (unknown) (unknown) Glucose (70-100) mg/dL (units unknown) (unknown) (unknown) (no date) (unknown) (unknown) Glucose 96 (70-100) mg/dL (units unknown) (unknown) (unknown) (no date) (unknown) (unknown) Grandmother Ovarian cancer (units unknown) (unknown) (unknown) (no date) (unknown) (unknown) H/O unilateral oophorectomy () (units unknown) (unknown) (unknown) (no date) (unknown) (unknown) H/O: hysterectomy (units unknown) (unknown) (unknown) (no date) (unknown) (unknown) HPI - Abdominal Pain (units unknown) (unknown) (unknown) (no date) (unknown) (unknown) HPI narrative: (units unknown) (unknown) (unknown) (no date) (unknown) (unknown) Hct (36-46) % (units unknown) (unknown) (unknown) (no date) (unknown) (unknown) Hct 35.8 L (36-46) % (units unknown) (unknown) (unknown) (no date) (unknown) (unknown) Hematuria (units unknown) (unknown) (unknown) (no date) (unknown) (unknown) Hgb (12.0-16.0) g/dL (units unknown) (unknown) (unknown) (no date) (unknown) (unknown) Hgb 12.6 (12.0-16.0) g/dL (units unknown) (unknown) (unknown) (no date) (unknown) (unknown) History of Present Illness (units unknown) (unknown) (unknown) (no date) (unknown) (unknown) History of ureter stent (units unknown) (unknown) (unknown) (no date) (unknown) (unknown) Hold Instructions: NEEDS TO SEE NEUROLOGY (units unknown) (unknown) (unknown) (no date) (unknown) (unknown) Hold Instructions: SEEN BY PSYCHIATRY (units unknown) (unknown) (unknown) (no date) (unknown) (unknown) Home Medications (units unknown) (unknown) (unknown) (no date) (unknown) (unknown) Hydromorphone HCl (Hydromorphone 1 Mg Inj) 1 mg IV NOW ONE (units unknown) (unknown) (unknown) (no date) (unknown) (unknown) Hyperlipidemia (units unknown) (unknown) (unknown) (no date) (unknown) (unknown) Hypertension (units unknown) (unknown) (unknown) (no date) (unknown) (unknown) INJECT INTRAMUSCULARLY EVERY 20 MINUTES NEEDED FOR ANAPHYLAXIS UNTIL (units unknown) (unknown) (unknown) (no date) (unknown) (unknown) IV DYE] (units unknown) (unknown) (unknown) (no date) (unknown) (unknown) Initial Vital Signs (units unknown) (unknown) (unknown) (no date) (unknown) (unknown) Initial Vital Signs: (units unknown) (unknown) (unknown) (no date) (unknown) (unknown) Iodinated Contrast Media Allergy Unknown Verified 04/22/22 14:44 (units unknown) (unknown) (unknown) (no date) (unknown) (unknown) [address] [address] (units unknown) (unknown) (unknown) (no date) (unknown) (unknown) Lab Data (units unknown) (unknown) (unknown) (no date) (unknown) (unknown) Lab Results (units unknown) (unknown) (unknown) (no date) (unknown) (unknown) Labs: (units unknown) (unknown) (unknown) (no date) (unknown) (unknown) Lactate (0.7-2.1) mmol/L (units unknown) (unknown) (unknown) (no date) (unknown) (unknown) Lactate (Lactic Acid ) Stat (units unknown) (unknown) (unknown) (no date) (unknown) (unknown) Lactate 1.2 (0.7-2.1 ) mmol/L (units unknown) (unknown) (unknown) (no date) (unknown) (unknown) Last Admin: 11/15/22 22:00 Dose: 10 mg (units unknown) (unknown) (unknown) (no date) (unknown) (unknown) Last Admin: 11/15/22 22:01 Dose: 40 mg (units unknown) (unknown) (unknown) (no date) (unknown) (unknown) Last Admin: 11/15/22 22:21 Dose: Not Given (units unknown) (unknown) (unknown) (no date) (unknown) (unknown) Last Admin: 11/15/22 22:24 Dose: 1,000 mls/hr (units unknown) (unknown) (unknown) (no date) (unknown) (unknown) Limit as possible. Prescribed per 03/21 signed pain management contract. (units unknown) (unknown) (unknown) (no date) (unknown) (unknown) Lipase (23-300) U/L (units unknown) (unknown) (unknown) (no date) (unknown) (unknown) Lipase 86 (23-300) U/L (units unknown) (unknown) (unknown) (no date) (unknown) (unknown) Lipase Stat (units unknown) (unknown) (unknown) (no date) (unknown) (unknown) Lymph # (Auto) (5815-7164) /uL (units unknown) (unknown) (unknown) (no date) (unknown) (unknown) Lymph # (Auto) 2200 (7198-3628) /uL (units unknown) (unknown) (unknown) (no date) (unknown) (unknown) Lymph % (Auto) (25-40) % (units unknown) (unknown) (unknown) (no date) (unknown) (unknown) Lymph % (Auto) 34.4 (25-40) % (units unknown) (unknown) (unknown) (no date) (unknown) (unknown) MCH (26-34) PG (units unknown) (unknown) (unknown) (no date) (unknown) (unknown) MCH 31.2 (26-34) PG (units unknown) (unknown) (unknown) (no date) (unknown) (unknown) MCHC (30-36) % (units unknown) (unknown) (unknown) (no date) (unknown) (unknown) MCHC 35.3 (30-36) % (units unknown) (unknown) (unknown) (no date) (unknown) (unknown) MCV (80-100) fL (units unknown) (unknown) (unknown) (no date) (unknown) (unknown) MCV 88.6 (80-100) fL (units unknown) (unknown) (unknown) (no date) (unknown) (unknown) MDM - Abdominal Pain (units unknown) (unknown) (unknown) (no date) (unknown) (unknown) Major depressive disorder (units unknown) (unknown) (unknown) (no date) (unknown) (unknown) Medical History (units unknown) (unknown) (unknown) (no date) (unknown) (unknown) Medication Instructions Recorded Confirmed (units unknown) (unknown) (unknown) (no date) (unknown) (unknown) Medication Instructions Recorded (units unknown) (unknown) (unknown) (no date) (unknown) (unknown) Methylprednisolone (Methylprednisolone 125 Mg/2 Ml Vial) 125 mg IV NOW ONE (units unknown) (unknown) (unknown) (no date) (unknown) (unknown) [place] # (Auto) (0-900 ) /uL (units unknown) (unknown) (unknown) (no date) (unknown) (unknown) [place] # (Auto) 400 (0-900) /uL (units unknown) (unknown) (unknown) (no date) (unknown) (unknown) [place] % (Auto) (3-14) % (units unknown) (unknown) (unknown) (no date) (unknown) (unknown) [place] % (Auto) 6.9 (3-14) % (units unknown) (unknown) (unknown) (no date) (unknown) (unknown) Morbid obesity (units unknown) (unknown) (unknown) (no date) (unknown) (unknown) Mother BRCA positive (units unknown) (unknown) (unknown) (no date) (unknown) (unknown) Nephrolithiasis (-2018) (units unknown) (unknown) (unknown) (no date) (unknown) (unknown) Neut # (Auto) (8130-1743) /uL (units unknown) (unknown) (unknown) (no date) (unknown) (unknown) Neut # (Auto) 3500 (3553-3783) /uL (units unknown) (unknown) (unknown) (no date) (unknown) (unknown) Neut % (Auto) (50-75 ) % (units unknown) (unknown) (unknown) (no date) (unknown) (unknown) Neut % (Auto) 54.8 (50-75) % (units unknown) (unknown) (unknown) (no date) (unknown) (unknown) No Action (units unknown) (unknown) (unknown) (no date) (unknown) (unknown) Ordered: (units unknown) (unknown) (unknown) (no date) (unknown) (unknown) Orders (units unknown) (unknown) (unknown) (no date) (unknown) (unknown) Ovarian cyst (units unknown) (unknown) (unknown) (no date) (unknown) (unknown) Oxygen Delivery Method Room Air 11/15/22 21:09 (units unknown) (unknown) (unknown) (no date) (unknown) (unknown) Oxygen Delivery Method Room Air (units unknown) (unknown) (unknown) (no date) (unknown) (unknown) PCOS (polycystic ovarian syndrome) (units unknown) (unknown) (unknown) (no date) (unknown) (unknown) Pantoprazole Sodium (Pantoprazole 40 Mg Vial) 40 mg IV NOW ONE (units unknown) (unknown) (unknown) (no date) (unknown) (unknown) Patellar dislocation (units unknown) (unknown) (unknown) (no date) (unknown) (unknown) Patient 27-year-old female with significant history of anxiety, psychogenic (units unknown) (unknown) (unknown) (no date) (unknown) (unknown) Patient History (units unknown) (unknown) (unknown) (no date) (unknown) (unknown) Patient: Calin Jorgensen MR# (units unknown) (unknown) (unknown) (no date) (unknown) (unknown) Pelvic congestion (2013) (units unknown) (unknown) (unknown) (no date) (unknown) (unknown) Penicillins [PENICILLINS] Allergy Mild Verified 04/22/22 14:44 (units unknown) (unknown) (unknown) (no date) (unknown) (unknown) Plt Count (150-400) X103/uL (units unknown) (unknown) (unknown) (no date) (unknown) (unknown) Plt Count 245 (150-400) X103/uL (units unknown) (unknown) (unknown) (no date) (unknown) (unknown) Point of Care Testing (units unknown) (unknown) (unknown) (no date) (unknown) (unknown) Point of care testing: (units unknown) (unknown) (unknown) (no date) (unknown) (unknown) Potassium (3.4-5.1) mmol/L (units unknown) (unknown) (unknown) (no date) (unknown) (unknown) Potassium 3.6 (3.4-5.1) mmol/L (units unknown) (unknown) (unknown) (no date) (unknown) (unknown) Test Results Negative (units unknown) (unknown) (unknown) (no date) (unknown) (unknown) Prescriptions: (units unknown) (unknown) (unknown) (no date) (unknown) (unknown) Previous Rx's (units unknown) (unknown) (unknown) (no date) (unknown) (unknown) Procalcitonin < 0.03 (<0.5) ng/mL (units unknown) (unknown) (unknown) (no date) (unknown) (unknown) Procalcitonin (<0.5) ng/mL (units unknown) (unknown) (unknown) (no date) (unknown) (unknown) Procalcitonin Stat (units unknown) (unknown) (unknown) (no date) (unknown) (unknown) Prochlorperazine (Prochlorperazine 10 Mg/2 Ml Vial) 10 mg IV NOW ONE (units unknown) (unknown) (unknown) (no date) (unknown) (unknown) Psychogenic nonepileptic seizure (units unknown) (unknown) (unknown) (no date) (unknown) (unknown) Pulse Oximetry 97 11/15/22 21:09 (units unknown) (unknown) (unknown) (no date) (unknown) (unknown) Pulse Oximetry 97 (units unknown) (unknown) (unknown) (no date) (unknown) (unknown) Pulse Rate 78 11/15/22 21:09 (units unknown) (unknown) (unknown) (no date) (unknown) (unknown) Pulse Rate 78 60 (units unknown) (unknown) (unknown) (no date) (unknown) (unknown) RBC (4.0-5.2) X106/uL (units unknown) (unknown) (unknown) (no date) (unknown) (unknown) RBC 4.04 (4.0-5.2) X106/uL (units unknown) (unknown) (unknown) (no date) (unknown) (unknown) RDW (11.6-14.8) % (units unknown) (unknown) (unknown) (no date) (unknown) (unknown) RDW 12.7 (11.6-14.8) % (units unknown) (unknown) (unknown) (no date) (unknown) (unknown) RESPONSE (units unknown) (unknown) (unknown) (no date) (unknown) (unknown) Referrals: (units unknown) (unknown) (unknown) (no date) (unknown) (unknown) Related Data (units unknown) (unknown) (unknown) (no date) (unknown) (unknown) Respiratory Rate 16 11/15/22 21:09 (units unknown) (unknown) (unknown) (no date) (unknown) (unknown) Respiratory Rate 16 (units unknown) (unknown) (unknown) (no date) (unknown) (unknown) Rx Instructions: (units unknown) (unknown) (unknown) (no date) (unknown) (unknown) See Rx Instructions .ROUTE .COMPLEX Qty: 180 0RF (units unknown) (unknown) (unknown) (no date) (unknown) (unknown) See Rx Instructions .ROUTE .COMPLEX Qty: 2 0RF (units unknown) (unknown) (unknown) (no date) (unknown) (unknown) See Rx Instructions PO BEDTIME Qty: 45 2RF (units unknown) (unknown) (unknown) (no date) (unknown) (unknown) Signed By: (units unknown) (unknown) (unknown) (no date) (unknown) (unknown) Smoking Status: Current every day smoker (units unknown) (unknown) (unknown) (no date) (unknown) (unknown) Social History (units unknown) (unknown) (unknown) (no date) (unknown) (unknown) Sodium (137-145) mmol/L (units unknown) (unknown) (unknown) (no date) (unknown) (unknown) Sodium 136 L (137-145) mmol/L (units unknown) (unknown) (unknown) (no date) (unknown) (unknown) Sodium Chloride (Normal Saline 0.9%) 1,000 mls @ 1,000 mls/hr IV BOLUS ONE (units unknown) (unknown) (unknown) (no date) (unknown) (unknown) Stated Complaint: abdominal pain, vomiting blood (units unknown) (unknown) (unknown) (no date) (unknown) (unknown) Status post appendectomy (2003) (units unknown) (unknown) (unknown) (no date) (unknown) (unknown) Status post bilatera l salpingectomy (10/21/17) (units unknown) (unknown) (unknown) (no date) (unknown) (unknown) Status post dilation and curettage (2010) (units unknown) (unknown) (unknown) (no date) (unknown) (unknown) Status post dilation and curettage (2011) (units unknown) (unknown) (unknown) (no date) (unknown) (unknown) Status post knee surgery (2007) (units unknown) (unknown) (unknown) (no date) (unknown) (unknown) Status post knee surgery (2012) (units unknown) (unknown) (unknown) (no date) (unknown) (unknown) Status post laparoscopic supracervical hysterectomy (10/21/17) (units unknown) (unknown) (unknown) (no date) (unknown) (unknown) Status post laparoscopy () (units unknown) (unknown) (unknown) (no date) (unknown) (unknown) Status post laparoscopy (2003) (units unknown) (unknown) (unknown) (no date) (unknown) (unknown) Status post laparoscopy (2004) (units unknown) (unknown) (unknown) (no date) (unknown) (unknown) Status post laparoscopy (2011) (units unknown) (unknown) (unknown) (no date) (unknown) (unknown) Status post removal of cervix (units unknown) (unknown) (unknown) (no date) (unknown) (unknown) Status post tonsillectomy and adenoidectomy (units unknown) (unknown) (unknown) (no date) (unknown) (unknown) Stop: 11/15/22 21:42 (units unknown) (unknown) (unknown) (no date) (unknown) (unknown) Stop: 11/15/22 22:03 (units unknown) (unknown) (unknown) (no date) (unknown) (unknown) Stop: 11/15/22 22:12 (units unknown) (unknown) (unknown) (no date) (unknown) (unknown) Stop: 11/15/22 22:51 (units unknown) (unknown) (unknown) (no date) (unknown) (unknown) Substance Use Type: does not use (units unknown) (unknown) (unknown) (no date) (unknown) (unknown) Surgical History (units unknown) (unknown) (unknown) (no date) (unknown) (unknown) TAKE 2 TABLETS BY MOUTH AT BEDTIME NEEDED FOR INSOMNIA (units unknown) (unknown) (unknown) (no date) (unknown) (unknown) Take 1 tab p.o. at HS. May take 1/2 tab p.o. during the day for anxiety (units unknown) (unknown) (unknown) (no date) (unknown) (unknown) Temperature 97.6 F 11/15/22 21:09 (units unknown) (unknown) (unknown) (no date) (unknown) (unknown) Temperature 97.6 F (units unknown) (unknown) (unknown) (no date) (unknown) (unknown) Time Seen by Provider: 11/15/22 21:09 (units unknown) (unknown) (unknown) (no date) (unknown) (unknown) Total Bilirubin (0.2-1.3) mg/dL (units unknown) (unknown) (unknown) (no date) (unknown) (unknown) Total Bilirubin 0.5 (0.2-1.3) mg/dL (units unknown) (unknown) (unknown) (no date) (unknown) (unknown) Total Protein (6.3-8.2) g/dL (units unknown) (unknown) (unknown) (no date) (unknown) (unknown) Total Protein 6.4 (6.3-8.2) g/dL (units unknown) (unknown) (unknown) (no date) (unknown) (unknown) UA Complete [Urinalysis and Microscopic] Stat (units unknown) (unknown) (unknown) (no date) (unknown) (unknown) Ur Culture Indicated ? Specimen cultured (units unknown) (unknown) (unknown) (no date) (unknown) (unknown) Ur Culture Indicated? (units unknown) (unknown) (unknown) (no date) (unknown) (unknown) Ur Leukocyte [place] e (NEGATIVE) (units unknown) (unknown) (unknown) (no date) (unknown) (unknown) Ur Leukocyte [place] e 1+ H (NEGATIVE) (units unknown) (unknown) (unknown) (no date) (unknown) (unknown) Ur Specific [place] (1.000-1.035) (units unknown) (unknown) (unknown) (no date) (unknown) (unknown) Ur Specific [place] 1.025 (1.000-1.035) (units unknown) (unknown) (unknown) (no date) (unknown) (unknown) Ur Squamous Epith Cells (0-5/HPF) (units unknown) (unknown) (unknown) (no date) (unknown) (unknown) Ur Squamous Epith Cells 1-5 /hpf D (0-5/HPF) (units unknown) (unknown) (unknown) (no date) (unknown) (unknown) Urine Appearance Cloudy (units unknown) (unknown) (unknown) (no date) (unknown) (unknown) Urine Appearance (units unknown) (unknown) (unknown) (no date) (unknown) (unknown) Urine Bacteria (None) (units unknown) (unknown) (unknown) (no date) (unknown) (unknown) Urine Bacteria Occasional (0-1) (None) (units unknown) (unknown) (unknown) (no date) (unknown) (unknown) Urine Bilirubin (NEGATIVE) (units unknown) (unknown) (unknown) (no date) (unknown) (unknown) Urine Bilirubin Negative (NEGATIVE) (units unknown) (unknown) (unknown) (no date) (unknown) (unknown) Urine Color Red (units unknown) (unknown) (unknown) (no date) (unknown) (unknown) Urine Color (units unknown) (unknown) (unknown) (no date) (unknown) (unknown) Urine Culture Stat (units unknown) (unknown) (unknown) (no date) (unknown) (unknown) Urine Dip (units unknown) (unknown) (unknown) (no date) (unknown) (unknown) Urine Glucose (UA) (Negative) g/dL (units unknown) (unknown) (unknown) (no date) (unknown) (unknown) Urine Glucose (UA) Negative (Negative) g/dL (units unknown) (unknown) (unknown) (no date) (unknown) (unknown) Urine Ketones (NEGATIVE) (units unknown) (unknown) (unknown) (no date) (unknown) (unknown) Urine Ketones Negative (NEGATIVE) (units unknown) (unknown) (unknown) (no date) (unknown) (unknown) Urine Nitrate (Negative) (units unknown) (unknown) (unknown) (no date) (unknown) (unknown) Urine Nitrate Negative (Negative) (units unknown) (unknown) (unknown) (no date) (unknown) (unknown) Urine Occult Blood (Negative) (units unknown) (unknown) (unknown) (no date) (unknown) (unknown) Urine Occult Blood 3 + H (Negative) (units unknown) (unknown) (unknown) (no date) (unknown) (unknown) Urine Protein (Negative) (units unknown) (unknown) (unknown) (no date) (unknown) (unknown) Urine Protein 1+ H (Negative) (units unknown) (unknown) (unknown) (no date) (unknown) (unknown) Urine RBC >100/hpf H (0-5/HPF) (units unknown) (unknown) (unknown) (no date) (unknown) (unknown) Urine RBC (0-5/HPF) (units unknown) (unknown) (unknown) (no date) (unknown) (unknown) Urine Specific [place] 1.020 (units unknown) (unknown) (unknown) (no date) (unknown) (unknown) Urine Urobilinogen (0.2) E.U./dL (units unknown) (unknown) (unknown) (no date) (unknown) (unknown) Urine Urobilinogen 1.0 (0.2) E.U./dL (units unknown) (unknown) (unknown) (no date) (unknown) (unknown) Urine WBC (0-5/HPF) (units unknown) (unknown) (unknown) (no date) (unknown) (unknown) Urine WBC 1-5/hpf (0-5/HPF) (units unknown) (unknown) (unknown) (no date) (unknown) (unknown) Urine pH (4.5-8.0) (units unknown) (unknown) (unknown) (no date) (unknown) (unknown) Urine pH 6.5 (4.5-8.0) (units unknown) (unknown) (unknown) (no date) (unknown) (unknown) Vital Signs - 8 hr (units unknown) (unknown) (unknown) (no date) (unknown) (unknown) Vital Signs (units unknown) (unknown) (unknown) (no date) (unknown) (unknown) Vital signs: (units unknown) (unknown) (unknown) (no date) (unknown) (unknown) WBC (4.5-11.0) X103/uL (units unknown) (unknown) (unknown) (no date) (unknown) (unknown) WBC 6.4 (4.5-11.0) X103/uL (units unknown) (unknown) (unknown) (no date) (unknown) (unknown) Christi Johnson , JORDAN, INFLATABLE BUILDINGS LAMINATOR [Primary Care Provider] (units unknown) (unknown) (unknown) (no date) (unknown) (unknown) [Embedded Image Not Available] (units unknown) (unknown) (unknown) (no date) (unknown) (unknown) [From BACTRIM] (units unknown) (unknown) (unknown) (no date) (unknown) (unknown) [IODINATED CONTRAST MEDIA (units unknown) (unknown) (unknown) (no date) (unknown) (unknown) [METOCLOPRAMIDE] (units unknown) (unknown) (unknown) (no date) (unknown) (unknown) [SHELLFISH DERIVED] (units unknown) (unknown) (unknown) (no date) (unknown) (unknown) adhesive [ADHESIVE] Allergy Mild Verified 04/22/22 14:44 (units unknown) (unknown) (unknown) (no date) (unknown) (unknown) alcohol intake frequency: holidays/special occasions only (units unknown) (unknown) (unknown) (no date) (unknown) (unknown) amoxicillin [AMOXICILLIN] Allergy Mild Verified 04/22/22 14:44 (units unknown) (unknown) (unknown) (no date) (unknown) (unknown) apply to single elbow, wrist or hand; for hand includes palm/fingers/back of (units unknown) (unknown) (unknown) (no date) (unknown) (unknown) cephalexin [CEPHALEXIN] Allergy Unknown Verified 04/22/22 14:44 (units unknown) (unknown) (unknown) (no date) (unknown) (unknown) ciprofloxacin [CIPROFLOXACIN] Allergy Unknown Verified 04/22/22 14:44 (units unknown) (unknown) (unknown) (no date) (unknown) (unknown) clindamycin [CLINDAMYCIN] Allergy Unknown Verified 04/22/22 14:44 (units unknown) (unknown) (unknown) (no date) (unknown) (unknown) diazepam 10 mg table t 10 mg PO QID #120 tabs 10/12/21 (units unknown) (unknown) (unknown) (no date) (unknown) (unknown) diazepam 10 mg tablet (units unknown) (unknown) (unknown) (no date) (unknown) (unknown) diazepam 5 mg tablet (Valium) 5 mg PO TID PRN muscle spasm #10 10/19/21 (units unknown) (unknown) (unknown) (no date) (unknown) (unknown) diazepam [Valium] 5 mg tablet (units unknown) (unknown) (unknown) (no date) (unknown) (unknown) diclofenac sodium 1 % gel (units unknown) (unknown) (unknown) (no date) (unknown) (unknown) diclofenac sodium 1 % topical gel 2 g topical QID #100 grams 05/05/22 (units unknown) (unknown) (unknown) (no date) (unknown) (unknown) doxycycline [DOXYCYCLINE] Allergy Mild Verified 04/22/22 14:44 (units unknown) (unknown) (unknown) (no date) (unknown) (unknown) epinephrine 0.3 mg/0.3 mL See Rx Instructions .Route 02/27/22 (units unknown) (unknown) (unknown) (no date) (unknown) (unknown) epinephrine 0.3 mg/0.3 mL auto-injector (units unknown) (unknown) (unknown) (no date) (unknown) (unknown) hand (units unknown) (unknown) (unknown) (no date) (unknown) (unknown) hormone history of vaginal bleeding despite hysterectomy (units unknown) (unknown) (unknown) (no date) (unknown) (unknown) household members: spouse and children (units unknown) (unknown) (unknown) (no date) (unknown) (unknown) hydrocodone Allergy Mild rash Verified 04/22/22 14:44 (units unknown) (unknown) (unknown) (no date) (unknown) (unknown) injection, auto-injector .COMPLEX #2 ea (units unknown) (unknown) (unknown) (no date) (unknown) (unknown) iodine [IODINE] Allergy Mild Verified 04/22/22 14:44 (units unknown) (unknown) (unknown) (no date) (unknown) (unknown) lamotrigine 200 mg tablet 200 mg PO DAILY #30 tabs 01/18/22 (units unknown) (unknown) (unknown) (no date) (unknown) (unknown) lamotrigine 200 mg tablet (units unknown) (unknown) (unknown) (no date) (unknown) (unknown) latex [LATEX] Allerg y Unknown Verified 04/22/22 14:44 (units unknown) (unknown) (unknown) (no date) (unknown) (unknown) lidocaine AdvReac Palpitation Verified 04/22/22 14:44 (units unknown) (unknown) (unknown) (no date) (unknown) (unknown) lives independently: Yes (units unknown) (unknown) (unknown) (no date) (unknown) (unknown) marital status: (units unknown) (unknown) (unknown) (no date) (unknown) (unknown) metformin 500 mg tablet 500 mg PO BID #60 tabs 02/21/22 (units unknown) (unknown) (unknown) (no date) (unknown) (unknown) metformin 500 mg tablet (units unknown) (unknown) (unknown) (no date) (unknown) (unknown) metoclopramide Allergy Mild Verified 04/22/22 14:44 (units unknown) (unknown) (unknown) (no date) (unknown) (unknown) mg tablet (Percocet) (units unknown) (unknown) (unknown) (no date) (unknown) (unknown) neuroleptic seizures , PTSD depression, erosive gastritis causing hematemesis (units unknown) (unknown) (unknown) (no date) (unknown) (unknown) occupational status: employed (units unknown) (unknown) (unknown) (no date) (unknown) (unknown) oxycodone 10 mg tablet 5 mg PO Q6H PRN pain #14 tabs 05/05/22 (units unknown) (unknown) (unknown) (no date) (unknown) (unknown) oxycodone 10 mg tablet (units unknown) (unknown) (unknown) (no date) (unknown) (unknown) oxycodone-acetaminop h en 5 mg-325 1 tab PO Q8H PRN pain #6 tabs 04/22/22 (units unknown) (unknown) (unknown) (no date) (unknown) (unknown) oxycodone-acetaminop h en [Percocet] 5-325 mg tablet (units unknown) (unknown) (unknown) (no date) (unknown) (unknown) quetiapine 100 mg tablet 100 mg PO BEDTIME 02/27/22 02/27/22 (units unknown) (unknown) (unknown) (no date) (unknown) (unknown) quetiapine 100 mg tablet (units unknown) (unknown) (unknown) (no date) (unknown) (unknown) quetiapine 25 mg tablet See Rx Instructions PO BEDTIME #45 01/18/22 (units unknown) (unknown) (unknown) (no date) (unknown) (unknown) quetiapine 25 mg tablet (units unknown) (unknown) (unknown) (no date) (unknown) (unknown) received per another provider. (units unknown) (unknown) (unknown) (no date) (unknown) (unknown) s (units unknown) (unknown) (unknown) (no date) (unknown) (unknown) sertraline 100 mg tablet 200 mg PO DAILY #60 tabs 01/18/22 (units unknown) (unknown) (unknown) (no date) (unknown) (unknown) sertraline 100 mg tablet (units unknown) (unknown) (unknown) (no date) (unknown) (unknown) shellfish derived Allergy Severe ANAPHYLAXIS Verified 04/22/22 14:44 (units unknown) (unknown) (unknown) (no date) (unknown) (unknown) sulfamethoxazole Allergy Mild RASH Verified 04/22/22 14:44 (units unknown) (unknown) (unknown) (no date) (unknown) (unknown) tabs (units unknown) (unknown) (unknown) (no date) (unknown) (unknown) tobacco type: vaping (units unknown) (unknown) (unknown) (no date) (unknown) (unknown) tramadol 50 mg table t 100 mg PO BID PRN severe pain 03/22/22 (units unknown) (unknown) (unknown) (no date) (unknown) (unknown) tramadol 50 mg tablet (units unknown) (unknown) (unknown) (no date) (unknown) (unknown) trazodone 100 mg tablet See Rx Instructions .Route 11/20/21 (units unknown) (unknown) (unknown) (no date) (unknown) (unknown) trazodone 100 mg tablet (units unknown) (unknown) (unknown) (no date) (unknown) (unknown) trimethoprim [From BACTRIM] Allergy Mild RASH Verified 04/22/22 14:44 (units unknown) (unknown) Result panel 347 (unknown) (no date) (unknown) (unknown) (no value) (units unknown) (unknown) (unknown) (no date) (unknown) (unknown) (scale score 7-10) #60 tabs (units unknown) (unknown) (unknown) (no date) (unknown) (unknown) .COMPLEX #180 tabs (units unknown) (unknown) (unknown) (no date) (unknown) (unknown) 11/15/22 11/15/22 11/15/22 Range/Units (units unknown) (unknown) (unknown) (no date) (unknown) (unknown) 11/15/22 11/15/22 Range/Units (units unknown) (unknown) (unknown) (no date) (unknown) (unknown) 11/15/22 21:20 (units unknown) (unknown) (unknown) (no date) (unknown) (unknown) 11/15/22 21:32 (units unknown) (unknown) (unknown) (no date) (unknown) (unknown) 11/15/22 22:00 (units unknown) (unknown) (unknown) (no date) (unknown) (unknown) 11/15/22 (units unknown) (unknown) (unknown) (no date) (unknown) (unknown) 1 tab PO Q8H PRN (Reason: pain) Qty: 6 0RF (units unknown) (unknown) (unknown) (no date) (unknown) (unknown) 10 mg PO QID Qty: 12 0 2RF (units unknown) (unknown) (unknown) (no date) (unknown) (unknown) 100 mg PO BEDTIME (units unknown) (unknown) (unknown) (no date) (unknown) (unknown) 100 mg PO BID PRN (Reason: severe pain (scale score 7-10)) Qty: 60 0RF (units unknown) (unknown) (unknown) (no date) (unknown) (unknown) 2 g topical QID Qty: 100 3RF (units unknown) (unknown) (unknown) (no date) (unknown) (unknown) 200 mg PO DAILY Qty: 30 2RF (units unknown) (unknown) (unknown) (no date) (unknown) (unknown) 200 mg PO DAILY Qty: 60 2RF (units unknown) (unknown) (unknown) (no date) (unknown) (unknown) 21:09 11/15/22 (units unknown) (unknown) (unknown) (no date) (unknown) (unknown) 21:20 21:32 21:32 (units unknown) (unknown) (unknown) (no date) (unknown) (unknown) 21:32 21:32 (units unknown) (unknown) (unknown) (no date) (unknown) (unknown) 22:00 (units unknown) (unknown) (unknown) (no date) (unknown) (unknown) 5 mg PO Q6H PRN (Reason: pain) Qty: 14 0RF (units unknown) (unknown) (unknown) (no date) (unknown) (unknown) 5 mg PO TID PRN (Reason: muscle spasm) Qty: 10 0RF (units unknown) (unknown) (unknown) (no date) (unknown) (unknown) 500 mg PO BID Qty: 6 0 0RF (units unknown) (unknown) (unknown) (no date) (unknown) (unknown) : [id number] (units unknown) (unknown) (unknown) (no date) (unknown) (unknown) ABDOMEN: Soft, nontender. Normoactive bowel sounds all 4 quadrants. No (units unknown) (unknown) (unknown) (no date) (unknown) (unknown) ALT (<35) IU/L (units unknown) (unknown) (unknown) (no date) (unknown) (unknown) ALT 16 (<35) IU/L (units unknown) (unknown) (unknown) (no date) (unknown) (unknown) AST (14-36) IU/L (units unknown) (unknown) (unknown) (no date) (unknown) (unknown) AST 16 (14-36) IU/L (units unknown) (unknown) (unknown) (no date) (unknown) (unknown) Age/Sex: 27 / F (units unknown) (unknown) (unknown) (no date) (unknown) (unknown) Albumin (3.5-5.0) g/dL (units unknown) (unknown) (unknown) (no date) (unknown) (unknown) Albumin 3.9 (3.5-5.0 ) g/dL (units unknown) (unknown) (unknown) (no date) (unknown) (unknown) Albumin/Globulin Ratio (1.0-2.8) (units unknown) (unknown) (unknown) (no date) (unknown) (unknown) Albumin/Globulin Ratio 1.6 (1.0-2.8) (units unknown) (unknown) (unknown) (no date) (unknown) (unknown) Alkaline Phosphatase (38-126) U/L (units unknown) (unknown) (unknown) (no date) (unknown) (unknown) Alkaline Phosphatase 43 (38-126) U/L (units unknown) (unknown) (unknown) (no date) (unknown) (unknown) Allergies (units unknown) (unknown) (unknown) (no date) (unknown) (unknown) Allergy/AdvReac Type Severity Reaction Status Date / Time 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 (units unknown) (unknown) (unknown) (no date) (unknown) (unknown) BUN (7-17) mg/dL (units unknown) (unknown) (unknown) (no date) (unknown) (unknown) BUN 15 (7-17) mg/dL (units unknown) (unknown) (unknown) (no date) (unknown) (unknown) BUN/Creatinine Ratio (6-22) (units unknown) (unknown) (unknown) (no date) (unknown) (unknown) BUN/Creatinine Ratio 17.2 (6-22) (units unknown) (unknown) (unknown) (no date) (unknown) (unknown) Baso # (Auto) (0-100 ) /uL (units unknown) (unknown) (unknown) (no date) (unknown) (unknown) Baso # (Auto) 100 (0-100) /uL (units unknown) (unknown) (unknown) (no date) (unknown) (unknown) Baso % (Auto) (0-2) % (units unknown) (unknown) (unknown) (no date) (unknown) (unknown) Baso % (Auto) 1.9 (0-2) % (units unknown) (unknown) (unknown) (no date) (unknown) (unknown) Bedside Urine Bilirubin - Negative (units unknown) (unknown) (unknown) (no date) (unknown) (unknown) Bedside Urine Glucos e Negative (units unknown) (unknown) (unknown) (no date) (unknown) (unknown) Bedside Urine Ketone - Negative (units unknown) (unknown) (unknown) (no date) (unknown) (unknown) Bedside Urine Leukocytes + 70 (units unknown) (unknown) (unknown) (no date) (unknown) (unknown) Bedside Urine Nitrit e - Negative (units unknown) (unknown) (unknown) (no date) (unknown) (unknown) Bedside Urine Occult Blood - Negative (units unknown) (unknown) (unknown) (no date) (unknown) (unknown) Bedside Urine Protei n + 30 (units unknown) (unknown) (unknown) (no date) (unknown) (unknown) Bedside Urine Urobilinogen +/- 1mg (units unknown) (unknown) (unknown) (no date) (unknown) (unknown) Bedside Urine pH 6.0 (units unknown) (unknown) (unknown) (no date) (unknown) (unknown) Blood Pressure 140/6 3 11/15/22 21:09 (units unknown) (unknown) (unknown) (no date) (unknown) (unknown) Blood Pressure 140/6 3 140/63 (units unknown) (unknown) (unknown) (no date) (unknown) (unknown) Breast cancer (units unknown) (unknown) (unknown) (no date) (unknown) (unknown) CAD (coronary artery disease) (units unknown) (unknown) (unknown) (no date) (unknown) (unknown) CARDIOVASCULAR: Regular rate and rhythm without murmurs, rubs or gallops. (units unknown) (unknown) (unknown) (no date) (unknown) (unknown) CBC Auto Diff [Complete Blood Count AUTO DIFF] Stat (units unknown) (unknown) (unknown) (no date) (unknown) (unknown) CMP [Comprehensive Metabolic Panel] Stat (units unknown) (unknown) (unknown) (no date) (unknown) (unknown) CT abdomen pelvis wo con Stat (units unknown) (unknown) (unknown) (no date) (unknown) (unknown) Calcium (8.4-10.2) mg/dL (units unknown) (unknown) (unknown) (no date) (unknown) (unknown) Calcium 8.3 L (8.4-10.2) mg/dL (units unknown) (unknown) (unknown) (no date) (unknown) (unknown) Carbon Dioxide (22-32) mmol/L (units unknown) (unknown) (unknown) (no date) (unknown) (unknown) Carbon Dioxide 27 (22-32) mmol/L (units unknown) (unknown) (unknown) (no date) (unknown) (unknown) Chief Complaint: Abdominal Pain (units unknown) (unknown) (unknown) (no date) (unknown) (unknown) Chloride (98-107) mmol/L (units unknown) (unknown) (unknown) (no date) (unknown) (unknown) Chloride 103 (98-107 ) mmol/L (units unknown) (unknown) (unknown) (no date) (unknown) (unknown) Contract void and provider will offer no further tramadol refills if tramadol (units unknown) (unknown) (unknown) (no date) (unknown) (unknown) Course (units unknown) (unknown) (unknown) (no date) (unknown) (unknown) Creatinine (0.52-1.04) mg/dL (units unknown) (unknown) (unknown) (no date) (unknown) (unknown) Creatinine 0.87 (0.52-1.04) mg/dL (units unknown) (unknown) (unknown) (no date) (unknown) (unknown) : 1995 Acct:[id number] (units unknown) (unknown) (unknown) (no date) (unknown) (unknown) Date of Service: 11/15/22 (units unknown) (unknown) (unknown) (no date) (unknown) (unknown) Departure (units unknown) (unknown) (unknown) (no date) (unknown) (unknown) Diphenhydramine HCl (Diphenhydramine 50 Mg/Ml Vial) 25 mg IV NOW ONE (units unknown) (unknown) (unknown) (no date) (unknown) (unknown) Discharge Plan (units unknown) (unknown) (unknown) (no date) (unknown) (unknown) Discontinued Medications (units unknown) (unknown) (unknown) (no date) (unknown) (unknown) Documented By: SPF (units unknown) (unknown) (unknown) (no date) (unknown) (unknown) Dose Instruction: (units unknown) (unknown) (unknown) (no date) (unknown) (unknown) ED Orders (units unknown) (unknown) (unknown) (no date) (unknown) (unknown) ER Physician: Stephie Escalante D.O. (units unknown) (unknown) (unknown) (no date) (unknown) (unknown) EXTREMITIES: Normal range of motion, no clubbing or edema. Neurovascularly (units unknown) (unknown) (unknown) (no date) (unknown) (unknown) Emergency Report (units unknown) (unknown) (unknown) (no date) (unknown) (unknown) Endometriosis (units unknown) (unknown) (unknown) (no date) (unknown) (unknown) Eos # (Auto) (0-450) /uL (units unknown) (unknown) (unknown) (no date) (unknown) (unknown) Eos # (Auto) 100 (0-450) /uL (units unknown) (unknown) (unknown) (no date) (unknown) (unknown) Eos % (Auto) (2-4) % (units unknown) (unknown) (unknown) (no date) (unknown) (unknown) Eos % (Auto) 2.0 (2-4) % (units unknown) (unknown) (unknown) (no date) (unknown) (unknown) Esterase (units unknown) (unknown) (unknown) (no date) (unknown) (unknown) Estimated GFR > 60 (>60) mL/min (units unknown) (unknown) (unknown) (no date) (unknown) (unknown) Estimated GFR (>60) mL/min (units unknown) (unknown) (unknown) (no date) (unknown) (unknown) Exam (units unknown) (unknown) (unknown) (no date) (unknown) (unknown) Family History (units unknown) (unknown) (unknown) (no date) (unknown) (unknown) GENERAL: [Well-appearing, well-nourished] and in [no acute] distress. (units unknown) (unknown) (unknown) (no date) (unknown) (unknown) : No CVA tenderness (units unknown) (unknown) (unknown) (no date) (unknown) (unknown) General (units unknown) (unknown) (unknown) (no date) (unknown) (unknown) Globulin (1.7-4.1) g/dL (units unknown) (unknown) (unknown) (no date) (unknown) (unknown) Globulin 2.5 (1.7-4.1) g/dL (units unknown) (unknown) (unknown) (no date) (unknown) (unknown) Glucose (70-100) mg/dL (units unknown) (unknown) (unknown) (no date) (unknown) (unknown) Glucose 96 (70-100) mg/dL (units unknown) (unknown) (unknown) (no date) (unknown) (unknown) Grandmother Ovarian cancer (units unknown) (unknown) (unknown) (no date) (unknown) (unknown) H/O unilateral oophorectomy () (units unknown) (unknown) (unknown) (no date) (unknown) (unknown) H/O: hysterectomy (units unknown) (unknown) (unknown) (no date) (unknown) (unknown) HEENT: Head atraumatic,EOMI, pupils reactive, face symmetric, [moist] mucous (units unknown) (unknown) (unknown) (no date) (unknown) (unknown) HPI - Abdominal Pain (units unknown) (unknown) (unknown) (no date) (unknown) (unknown) HPI narrative: (units unknown) (unknown) (unknown) (no date) (unknown) (unknown) Hct (36-46) % (units unknown) (unknown) (unknown) (no date) (unknown) (unknown) Hct 35.8 L (36-46) % (units unknown) (unknown) (unknown) (no date) (unknown) (unknown) Hematuria (units unknown) (unknown) (unknown) (no date) (unknown) (unknown) Hgb (12.0-16.0) g/dL (units unknown) (unknown) (unknown) (no date) (unknown) (unknown) Hgb 12.6 (12.0-16.0) g/dL (units unknown) (unknown) (unknown) (no date) (unknown) (unknown) History of Present Illness (units unknown) (unknown) (unknown) (no date) (unknown) (unknown) History of ureter stent (units unknown) (unknown) (unknown) (no date) (unknown) (unknown) Hold Instructions: NEEDS TO SEE NEUROLOGY (units unknown) (unknown) (unknown) (no date) (unknown) (unknown) Hold Instructions: SEEN BY PSYCHIATRY (units unknown) (unknown) (unknown) (no date) (unknown) (unknown) Home Medications (units unknown) (unknown) (unknown) (no date) (unknown) (unknown) Hydromorphone HCl (Hydromorphone 1 Mg Inj) 1 mg IV NOW ONE (units unknown) (unknown) (unknown) (no date) (unknown) (unknown) Hyperlipidemia (units unknown) (unknown) (unknown) (no date) (unknown) (unknown) Hypertension (units unknown) (unknown) (unknown) (no date) (unknown) (unknown) INJECT INTRAMUSCULARLY EVERY 20 MINUTES NEEDED FOR ANAPHYLAXIS UNTIL (units unknown) (unknown) (unknown) (no date) (unknown) (unknown) IV DYE] (units unknown) (unknown) (unknown) (no date) (unknown) (unknown) Initial Vital Signs (units unknown) (unknown) (unknown) (no date) (unknown) (unknown) Initial Vital Signs: (units unknown) (unknown) (unknown) (no date) (unknown) (unknown) Iodinated Contrast Media Allergy Unknown Verified 04/22/22 14:44 (units unknown) (unknown) (unknown) (no date) (unknown) (unknown) [address] [address] (units unknown) (unknown) (unknown) (no date) (unknown) (unknown) Lab Data (units unknown) (unknown) (unknown) (no date) (unknown) (unknown) Lab Results (units unknown) (unknown) (unknown) (no date) (unknown) (unknown) Labs: (units unknown) (unknown) (unknown) (no date) (unknown) (unknown) Lactate (0.7-2.1) mmol/L (units unknown) (unknown) (unknown) (no date) (unknown) (unknown) Lactate (Lactic Acid ) Stat (units unknown) (unknown) (unknown) (no date) (unknown) (unknown) Lactate 1.2 (0.7-2.1 ) mmol/L (units unknown) (unknown) (unknown) (no date) (unknown) (unknown) Last Admin: 11/15/22 22:00 Dose: 10 mg (units unknown) (unknown) (unknown) (no date) (unknown) (unknown) Last Admin: 11/15/22 22:01 Dose: 40 mg (units unknown) (unknown) (unknown) (no date) (unknown) (unknown) Last Admin: 11/15/22 22:21 Dose: Not Given (units unknown) (unknown) (unknown) (no date) (unknown) (unknown) Last Admin: 11/15/22 22:24 Dose: 1,000 mls/hr (units unknown) (unknown) (unknown) (no date) (unknown) (unknown) Limit as possible. Prescribed per 03/21 signed pain management contract. (units unknown) (unknown) (unknown) (no date) (unknown) (unknown) Lipase (23-300) U/L (units unknown) (unknown) (unknown) (no date) (unknown) (unknown) Lipase 86 (23-300) U/L (units unknown) (unknown) (unknown) (no date) (unknown) (unknown) Lipase Stat (units unknown) (unknown) (unknown) (no date) (unknown) (unknown) Lymph # (Auto) (2737-6053) /uL (units unknown) (unknown) (unknown) (no date) (unknown) (unknown) Lymph # (Auto) 2200 (0901-1058) /uL (units unknown) (unknown) (unknown) (no date) (unknown) (unknown) Lymph % (Auto) (25-40) % (units unknown) (unknown) (unknown) (no date) (unknown) (unknown) Lymph % (Auto) 34.4 (25-40) % (units unknown) (unknown) (unknown) (no date) (unknown) (unknown) MCH (26-34) PG (units unknown) (unknown) (unknown) (no date) (unknown) (unknown) MCH 31.2 (26-34) PG (units unknown) (unknown) (unknown) (no date) (unknown) (unknown) MCHC (30-36) % (units unknown) (unknown) (unknown) (no date) (unknown) (unknown) MCHC 35.3 (30-36) % (units unknown) (unknown) (unknown) (no date) (unknown) (unknown) MCV (80-100) fL (units unknown) (unknown) (unknown) (no date) (unknown) (unknown) MCV 88.6 (80-100) fL (units unknown) (unknown) (unknown) (no date) (unknown) (unknown) MDM - Abdominal Pain (units unknown) (unknown) (unknown) (no date) (unknown) (unknown) Major depressive disorder (units unknown) (unknown) (unknown) (no date) (unknown) (unknown) Medical History (units unknown) (unknown) (unknown) (no date) (unknown) (unknown) Medication Instructions Recorded Confirmed (units unknown) (unknown) (unknown) (no date) (unknown) (unknown) Medication Instructions Recorded (units unknown) (unknown) (unknown) (no date) (unknown) (unknown) Methylprednisolone (Methylprednisolone 125 Mg/2 Ml Vial) 125 mg IV NOW ONE (units unknown) (unknown) (unknown) (no date) (unknown) (unknown) [place] # (Auto) (0-900 ) /uL (units unknown) (unknown) (unknown) (no date) (unknown) (unknown) [place] # (Auto) 400 (0-900) /uL (units unknown) (unknown) (unknown) (no date) (unknown) (unknown) [place] % (Auto) (3-14) % (units unknown) (unknown) (unknown) (no date) (unknown) (unknown) [place] % (Auto) 6.9 (3-14) % (units unknown) (unknown) (unknown) (no date) (unknown) (unknown) Morbid obesity (units unknown) (unknown) (unknown) (no date) (unknown) (unknown) Mother BRCA positive (units unknown) (unknown) (unknown) (no date) (unknown) (unknown) NEUROLOGICAL: Alert and oriented x4.Normal gait and speech. Cranial nerves II (units unknown) (unknown) (unknown) (no date) (unknown) (unknown) Nephrolithiasis (-2018) (units unknown) (unknown) (unknown) (no date) (unknown) (unknown) Neut # (Auto) (5584-6029) /uL (units unknown) (unknown) (unknown) (no date) (unknown) (unknown) Neut # (Auto) 3500 (3236-9549) /uL (units unknown) (unknown) (unknown) (no date) (unknown) (unknown) Neut % (Auto) (50-75 ) % (units unknown) (unknown) (unknown) (no date) (unknown) (unknown) Neut % (Auto) 54.8 (50-75) % (units unknown) (unknown) (unknown) (no date) (unknown) (unknown) No Action (units unknown) (unknown) (unknown) (no date) (unknown) (unknown) Ordered: (units unknown) (unknown) (unknown) (no date) (unknown) (unknown) Orders (units unknown) (unknown) (unknown) (no date) (unknown) (unknown) Ovarian cyst (units unknown) (unknown) (unknown) (no date) (unknown) (unknown) Oxygen Delivery Method Room Air 11/15/22 21:09 (units unknown) (unknown) (unknown) (no date) (unknown) (unknown) Oxygen Delivery Method Room Air (units unknown) (unknown) (unknown) (no date) (unknown) (unknown) PCOS (polycystic ovarian syndrome) (units unknown) (unknown) (unknown) (no date) (unknown) (unknown) Pantoprazole Sodium (Pantoprazole 40 Mg Vial) 40 mg IV NOW ONE (units unknown) (unknown) (unknown) (no date) (unknown) (unknown) Patellar dislocation (units unknown) (unknown) (unknown) (no date) (unknown) (unknown) Patient 27-year-old female with significant history of anxiety, psychogenic (units unknown) (unknown) (unknown) (no date) (unknown) (unknown) Patient History (units unknown) (unknown) (unknown) (no date) (unknown) (unknown) Patient: Calin Jorgensen MR# (units unknown) (unknown) (unknown) (no date) (unknown) (unknown) Pelvic congestion (2013) (units unknown) (unknown) (unknown) (no date) (unknown) (unknown) Penicillins [PENICILLINS] Allergy Mild Verified 04/22/22 14:44 (units unknown) (unknown) (unknown) (no date) (unknown) (unknown) Plt Count (150-400) X103/uL (units unknown) (unknown) (unknown) (no date) (unknown) (unknown) Plt Count 245 (150-400) X103/uL (units unknown) (unknown) (unknown) (no date) (unknown) (unknown) Point of Care Testing (units unknown) (unknown) (unknown) (no date) (unknown) (unknown) Point of care testing: (units unknown) (unknown) (unknown) (no date) (unknown) (unknown) Potassium (3.4-5.1) mmol/L (units unknown) (unknown) (unknown) (no date) (unknown) (unknown) Potassium 3.6 (3.4-5.1) mmol/L (units unknown) (unknown) (unknown) (no date) (unknown) (unknown) Test Results Negative (units unknown) (unknown) (unknown) (no date) (unknown) (unknown) Prescriptions: (units unknown) (unknown) (unknown) (no date) (unknown) (unknown) Previous Rx's (units unknown) (unknown) (unknown) (no date) (unknown) (unknown) Procalcitonin < 0.03 (<0.5) ng/mL (units unknown) (unknown) (unknown) (no date) (unknown) (unknown) Procalcitonin (<0.5) ng/mL (units unknown) (unknown) (unknown) (no date) (unknown) (unknown) Procalcitonin Stat (units unknown) (unknown) (unknown) (no date) (unknown) (unknown) Prochlorperazine (Prochlorperazine 10 Mg/2 Ml Vial) 10 mg IV NOW ONE (units unknown) (unknown) (unknown) (no date) (unknown) (unknown) Psychogenic nonepileptic seizure (units unknown) (unknown) (unknown) (no date) (unknown) (unknown) Pulse Oximetry 97 11/15/22 21:09 (units unknown) (unknown) (unknown) (no date) (unknown) (unknown) Pulse Oximetry 97 (units unknown) (unknown) (unknown) (no date) (unknown) (unknown) Pulse Rate 78 11/15/22 21:09 (units unknown) (unknown) (unknown) (no date) (unknown) (unknown) Pulse Rate 78 60 (units unknown) (unknown) (unknown) (no date) (unknown) (unknown) RBC (4.0-5.2) X106/uL (units unknown) (unknown) (unknown) (no date) (unknown) (unknown) RBC 4.04 (4.0-5.2) X106/uL (units unknown) (unknown) (unknown) (no date) (unknown) (unknown) RDW (11.6-14.8) % (units unknown) (unknown) (unknown) (no date) (unknown) (unknown) RDW 12.7 (11.6-14.8) % (units unknown) (unknown) (unknown) (no date) (unknown) (unknown) RESPIRATORY: Breath sounds equal bilaterally, no wheezes rales or rhonchi. (units unknown) (unknown) (unknown) (no date) (unknown) (unknown) RESPONSE (units unknown) (unknown) (unknown) (no date) (unknown) (unknown) Referrals: (units unknown) (unknown) (unknown) (no date) (unknown) (unknown) Related Data (units unknown) (unknown) (unknown) (no date) (unknown) (unknown) Respiratory Rate 16 11/15/22 21:09 (units unknown) (unknown) (unknown) (no date) (unknown) (unknown) Respiratory Rate 16 (units unknown) (unknown) (unknown) (no date) (unknown) (unknown) Rx Instructions: (units unknown) (unknown) (unknown) (no date) (unknown) (unknown) SKIN: Warm, dry, no laceration, no petechiae, no rashes or lesions. (units unknown) (unknown) (unknown) (no date) (unknown) (unknown) See Rx Instructions .ROUTE .COMPLEX Qty: 180 0RF (units unknown) (unknown) (unknown) (no date) (unknown) (unknown) See Rx Instructions .ROUTE .COMPLEX Qty: 2 0RF (units unknown) (unknown) (unknown) (no date) (unknown) (unknown) See Rx Instructions PO BEDTIME Qty: 45 2RF (units unknown) (unknown) (unknown) (no date) (unknown) (unknown) Signed By: (units unknown) (unknown) (unknown) (no date) (unknown) (unknown) [facility] recently for an EGD which she was found to have erosive (units unknown) (unknown) (unknown) (no date) (unknown) (unknown) Smoking Status: Current every day smoker (units unknown) (unknown) (unknown) (no date) (unknown) (unknown) Social History (units unknown) (unknown) (unknown) (no date) (unknown) (unknown) Sodium (137-145) mmol/L (units unknown) (unknown) (unknown) (no date) (unknown) (unknown) Sodium 136 L (137-145) mmol/L (units unknown) (unknown) (unknown) (no date) (unknown) (unknown) Sodium Chloride (Normal Saline 0.9%) 1,000 mls @ 1,000 mls/hr IV BOLUS ONE (units unknown) (unknown) (unknown) (no date) (unknown) (unknown) Stated Complaint: abdominal pain, vomiting blood (units unknown) (unknown) (unknown) (no date) (unknown) (unknown) Status post appendectomy (2003) (units unknown) (unknown) (unknown) (no date) (unknown) (unknown) Status post bilatera l salpingectomy (10/21/17) (units unknown) (unknown) (unknown) (no date) (unknown) (unknown) Status post dilation and curettage (2010) (units unknown) (unknown) (unknown) (no date) (unknown) (unknown) Status post dilation and curettage (2011) (units unknown) (unknown) (unknown) (no date) (unknown) (unknown) Status post knee surgery (2007) (units unknown) (unknown) (unknown) (no date) (unknown) (unknown) Status post knee surgery (2012) (units unknown) (unknown) (unknown) (no date) (unknown) (unknown) Status post laparoscopic supracervical hysterectomy (10/21/17) (units unknown) (unknown) (unknown) (no date) (unknown) (unknown) Status post laparoscopy () (units unknown) (unknown) (unknown) (no date) (unknown) (unknown) Status post laparoscopy (2003) (units unknown) (unknown) (unknown) (no date) (unknown) (unknown) Status post laparoscopy (2004) (units unknown) (unknown) (unknown) (no date) (unknown) (unknown) Status post laparoscopy (2011) (units unknown) (unknown) (unknown) (no date) (unknown) (unknown) Status post removal of cervix (units unknown) (unknown) (unknown) (no date) (unknown) (unknown) Status post tonsillectomy and adenoidectomy (units unknown) (unknown) (unknown) (no date) (unknown) (unknown) Stop: 11/15/22 21:42 (units unknown) (unknown) (unknown) (no date) (unknown) (unknown) Stop: 11/15/22 22:03 (units unknown) (unknown) (unknown) (no date) (unknown) (unknown) Stop: 11/15/22 22:12 (units unknown) (unknown) (unknown) (no date) (unknown) (unknown) Stop: 11/15/22 22:51 (units unknown) (unknown) (unknown) (no date) (unknown) (unknown) Substance Use Type: does not use (units unknown) (unknown) (unknown) (no date) (unknown) (unknown) Surgical History (units unknown) (unknown) (unknown) (no date) (unknown) (unknown) TAKE 2 TABLETS BY MOUTH AT BEDTIME NEEDED FOR INSOMNIA (units unknown) (unknown) (unknown) (no date) (unknown) (unknown) Take 1 tab p.o. at HS. May take 1/2 tab p.o. during the day for anxiety (units unknown) (unknown) (unknown) (no date) (unknown) (unknown) Temperature 97.6 F 11/15/22 21:09 (units unknown) (unknown) (unknown) (no date) (unknown) (unknown) Temperature 97.6 F (units unknown) (unknown) (unknown) (no date) (unknown) (unknown) Time Seen by Provider: 11/15/22 21:09 (units unknown) (unknown) (unknown) (no date) (unknown) (unknown) Total Bilirubin (0.2-1.3) mg/dL (units unknown) (unknown) (unknown) (no date) (unknown) (unknown) Total Bilirubin 0.5 (0.2-1.3) mg/dL (units unknown) (unknown) (unknown) (no date) (unknown) (unknown) Total Protein (6.3-8.2) g/dL (units unknown) (unknown) (unknown) (no date) (unknown) (unknown) Total Protein 6.4 (6.3-8.2) g/dL (units unknown) (unknown) (unknown) (no date) (unknown) (unknown) UA Complete [Urinalysis and Microscopic] Stat (units unknown) (unknown) (unknown) (no date) (unknown) (unknown) Ur Culture Indicated ? Specimen cultured (units unknown) (unknown) (unknown) (no date) (unknown) (unknown) Ur Culture Indicated? (units unknown) (unknown) (unknown) (no date) (unknown) (unknown) Ur Leukocyte [place] e (NEGATIVE) (units unknown) (unknown) (unknown) (no date) (unknown) (unknown) Ur Leukocyte [place] e 1+ H (NEGATIVE) (units unknown) (unknown) (unknown) (no date) (unknown) (unknown) Ur Specific [place] (1.000-1.035) (units unknown) (unknown) (unknown) (no date) (unknown) (unknown) Ur Specific [place] 1.025 (1.000-1.035) (units unknown) (unknown) (unknown) (no date) (unknown) (unknown) Ur Squamous Epith Cells (0-5/HPF) (units unknown) (unknown) (unknown) (no date) (unknown) (unknown) Ur Squamous Epith Cells 1-5 /hpf D (0-5/HPF) (units unknown) (unknown) (unknown) (no date) (unknown) (unknown) Urine Appearance Cloudy (units unknown) (unknown) (unknown) (no date) (unknown) (unknown) Urine Appearance (units unknown) (unknown) (unknown) (no date) (unknown) (unknown) Urine Bacteria (None) (units unknown) (unknown) (unknown) (no date) (unknown) (unknown) Urine Bacteria Occasional (0-1) (None) (units unknown) (unknown) (unknown) (no date) (unknown) (unknown) Urine Bilirubin (NEGATIVE) (units unknown) (unknown) (unknown) (no date) (unknown) (unknown) Urine Bilirubin Negative (NEGATIVE) (units unknown) (unknown) (unknown) (no date) (unknown) (unknown) Urine Color Red (units unknown) (unknown) (unknown) (no date) (unknown) (unknown) Urine Color (units unknown) (unknown) (unknown) (no date) (unknown) (unknown) Urine Culture Stat (units unknown) (unknown) (unknown) (no date) (unknown) (unknown) Urine Dip (units unknown) (unknown) (unknown) (no date) (unknown) (unknown) Urine Glucose (UA) (Negative) g/dL (units unknown) (unknown) (unknown) (no date) (unknown) (unknown) Urine Glucose (UA) Negative (Negative) g/dL (units unknown) (unknown) (unknown) (no date) (unknown) (unknown) Urine Ketones (NEGATIVE) (units unknown) (unknown) (unknown) (no date) (unknown) (unknown) Urine Ketones Negative (NEGATIVE) (units unknown) (unknown) (unknown) (no date) (unknown) (unknown) Urine Nitrate (Negative) (units unknown) (unknown) (unknown) (no date) (unknown) (unknown) Urine Nitrate Negative (Negative) (units unknown) (unknown) (unknown) (no date) (unknown) (unknown) Urine Occult Blood (Negative) (units unknown) (unknown) (unknown) (no date) (unknown) (unknown) Urine Occult Blood 3 + H (Negative) (units unknown) (unknown) (unknown) (no date) (unknown) (unknown) Urine Protein (Negative) (units unknown) (unknown) (unknown) (no date) (unknown) (unknown) Urine Protein 1+ H (Negative) (units unknown) (unknown) (unknown) (no date) (unknown) (unknown) Urine RBC >100/hpf H (0-5/HPF) (units unknown) (unknown) (unknown) (no date) (unknown) (unknown) Urine RBC (0-5/HPF) (units unknown) (unknown) (unknown) (no date) (unknown) (unknown) Urine Specific [place] 1.020 (units unknown) (unknown) (unknown) (no date) (unknown) (unknown) Urine Urobilinogen (0.2) E.U./dL (units unknown) (unknown) (unknown) (no date) (unknown) (unknown) Urine Urobilinogen 1.0 (0.2) E.U./dL (units unknown) (unknown) (unknown) (no date) (unknown) (unknown) Urine WBC (0-5/HPF) (units unknown) (unknown) (unknown) (no date) (unknown) (unknown) Urine WBC 1-5/hpf (0-5/HPF) (units unknown) (unknown) (unknown) (no date) (unknown) (unknown) Urine pH (4.5-8.0) (units unknown) (unknown) (unknown) (no date) (unknown) (unknown) Urine pH 6.5 (4.5-8.0) (units unknown) (unknown) (unknown) (no date) (unknown) (unknown) Vital Signs - 8 hr (units unknown) (unknown) (unknown) (no date) (unknown) (unknown) Vital Signs (units unknown) (unknown) (unknown) (no date) (unknown) (unknown) Vital signs: (units unknown) (unknown) (unknown) (no date) (unknown) (unknown) WBC (4.5-11.0) X103/uL (units unknown) (unknown) (unknown) (no date) (unknown) (unknown) WBC 6.4 (4.5-11.0) X103/uL (units unknown) (unknown) (unknown) (no date) (unknown) (unknown) Christi Johnson , DNP, INFLATABLE BUILDINGS LAMINATOR [Primary Care Provider] (units unknown) (unknown) (unknown) (no date) (unknown) (unknown) [EARS:] [Tympanic membranes visualized, no erythema or bulging, no hemotympanum] (units unknown) (unknown) (unknown) (no date) (unknown) (unknown) [Embedded Image Not Available] (units unknown) (unknown) (unknown) (no date) (unknown) (unknown) [From BACTRIM] (units unknown) (unknown) (unknown) (no date) (unknown) (unknown) [IODINATED CONTRAST MEDIA (units unknown) (unknown) (unknown) (no date) (unknown) (unknown) [METOCLOPRAMIDE] (units unknown) (unknown) (unknown) (no date) (unknown) (unknown) [PHARYNX:] [No erythema, no tonsillar exudate, no cervical lymphadenopathy] (units unknown) (unknown) (unknown) (no date) (unknown) (unknown) [RECTAL:] [Hemoccult-positive, no hemorrhoids, nontender] (units unknown) (unknown) (unknown) (no date) (unknown) (unknown) [SHELLFISH DERIVED] (units unknown) (unknown) (unknown) (no date) (unknown) (unknown) actually was seen evaluated by her primary care provider yesterday she was (units unknown) (unknown) (unknown) (no date) (unknown) (unknown) adhesive [ADHESIVE] Allergy Mild Verified 04/22/22 14:44 (units unknown) (unknown) (unknown) (no date) (unknown) (unknown) alcohol intake frequency: holidays/special occasions only (units unknown) (unknown) (unknown) (no date) (unknown) (unknown) amoxicillin [AMOXICILLIN] Allergy Mild Verified 04/22/22 14:44 (units unknown) (unknown) (unknown) (no date) (unknown) (unknown) apply to single elbow, wrist or hand; for hand includes palm/fingers/back of (units unknown) (unknown) (unknown) (no date) (unknown) (unknown) bilaterally, no visual changes, no facial droop] (units unknown) (unknown) (unknown) (no date) (unknown) (unknown) cephalexin [CEPHALEXIN] Allergy Unknown Verified 04/22/22 14:44 (units unknown) (unknown) (unknown) (no date) (unknown) (unknown) chills. No flank pain. He is had multiple CTs previously. She was admitted at (units unknown) (unknown) (unknown) (no date) (unknown) (unknown) ciprofloxacin [CIPROFLOXACIN] Allergy Unknown Verified 04/22/22 14:44 (units unknown) (unknown) (unknown) (no date) (unknown) (unknown) clindamycin [CLINDAMYCIN] Allergy Unknown Verified 04/22/22 14:44 (units unknown) (unknown) (unknown) (no date) (unknown) (unknown) diazepam 10 mg table t 10 mg PO QID #120 tabs 10/12/21 (units unknown) (unknown) (unknown) (no date) (unknown) (unknown) diazepam 10 mg tablet (units unknown) (unknown) (unknown) (no date) (unknown) (unknown) diazepam 5 mg tablet (Valium) 5 mg PO TID PRN muscle spasm #10 10/19/21 (units unknown) (unknown) (unknown) (no date) (unknown) (unknown) diazepam [Valium] 5 mg tablet (units unknown) (unknown) (unknown) (no date) (unknown) (unknown) diclofenac sodium 1 % gel (units unknown) (unknown) (unknown) (no date) (unknown) (unknown) diclofenac sodium 1 % topical gel 2 g topical QID #100 grams 05/05/22 (units unknown) (unknown) (unknown) (no date) (unknown) (unknown) doxycycline [DOXYCYCLINE] Allergy Mild Verified 04/22/22 14:44 (units unknown) (unknown) (unknown) (no date) (unknown) (unknown) epinephrine 0.3 mg/0.3 mL See Rx Instructions .Route 02/27/22 (units unknown) (unknown) (unknown) (no date) (unknown) (unknown) epinephrine 0.3 mg/0.3 mL auto-injector (units unknown) (unknown) (unknown) (no date) (unknown) (unknown) equal bilaterally, n o dysarthria or aphasia, sensation in tact to soft touch (units unknown) (unknown) (unknown) (no date) (unknown) (unknown) gastritis. She can not have NSAIDs. She is taking oxycodone. (units unknown) (unknown) (unknown) (no date) (unknown) (unknown) guarding or rebound. (units unknown) (unknown) (unknown) (no date) (unknown) (unknown) hand (units unknown) (unknown) (unknown) (no date) (unknown) (unknown) having galactorrhea which started 2 days ago. She says this is persisting. She (units unknown) (unknown) (unknown) (no date) (unknown) (unknown) household members: spouse and children (units unknown) (unknown) (unknown) (no date) (unknown) (unknown) hydrocodone Allergy Mild rash Verified 04/22/22 14:44 (units unknown) (unknown) (unknown) (no date) (unknown) (unknown) injection, auto-injector .COMPLEX #2 ea (units unknown) (unknown) (unknown) (no date) (unknown) (unknown) intact (units unknown) (unknown) (unknown) (no date) (unknown) (unknown) iodine [IODINE] Allergy Mild Verified 04/22/22 14:44 (units unknown) (unknown) (unknown) (no date) (unknown) (unknown) is metoclopramide Phenergan and oxycodone all which increase and (units unknown) (unknown) (unknown) (no date) (unknown) (unknown) lamotrigine 200 mg tablet 200 mg PO DAILY #30 tabs 01/18/22 (units unknown) (unknown) (unknown) (no date) (unknown) (unknown) lamotrigine 200 mg tablet (units unknown) (unknown) (unknown) (no date) (unknown) (unknown) latex [LATEX] Allerg y Unknown Verified 04/22/22 14:44 (units unknown) (unknown) (unknown) (no date) (unknown) (unknown) lidocaine AdvReac Palpitation Verified 04/22/22 14:44 (units unknown) (unknown) (unknown) (no date) (unknown) (unknown) lives independently: Yes (units unknown) (unknown) (unknown) (no date) (unknown) (unknown) marital status: (units unknown) (unknown) (unknown) (no date) (unknown) (unknown) membranes (units unknown) (unknown) (unknown) (no date) (unknown) (unknown) metformin 500 mg tablet 500 mg PO BID #60 tabs 02/21/22 (units unknown) (unknown) (unknown) (no date) (unknown) (unknown) metformin 500 mg tablet (units unknown) (unknown) (unknown) (no date) (unknown) (unknown) metoclopramide Allergy Mild Verified 04/22/22 14:44 (units unknown) (unknown) (unknown) (no date) (unknown) (unknown) mg tablet (Percocet) (units unknown) (unknown) (unknown) (no date) (unknown) (unknown) multiple EGDs, e history of vaginal bleeding despite hysterectomy, presents (units unknown) (unknown) (unknown) (no date) (unknown) (unknown) neuroleptic seizures , PTSD depression, erosive gastritis causing hematemesis (units unknown) (unknown) (unknown) (no date) (unknown) (unknown) occupational status: employed (units unknown) (unknown) (unknown) (no date) (unknown) (unknown) oxycodone 10 mg tablet 5 mg PO Q6H PRN pain #14 tabs 05/05/22 (units unknown) (unknown) (unknown) (no date) (unknown) (unknown) oxycodone 10 mg tablet (units unknown) (unknown) (unknown) (no date) (unknown) (unknown) oxycodone-acetaminop h en 5 mg-325 1 tab PO Q8H PRN pain #6 tabs 04/22/22 (units unknown) (unknown) (unknown) (no date) (unknown) (unknown) oxycodone-acetaminop h en [Percocet] 5-325 mg tablet (units unknown) (unknown) (unknown) (no date) (unknown) (unknown) prolactin levels. Sh e apparently does have vaginal bleeding there is a known (units unknown) (unknown) (unknown) (no date) (unknown) (unknown) quetiapine 100 mg tablet 100 mg PO BEDTIME 02/27/22 02/27/22 (units unknown) (unknown) (unknown) (no date) (unknown) (unknown) quetiapine 100 mg tablet (units unknown) (unknown) (unknown) (no date) (unknown) (unknown) quetiapine 25 mg tablet See Rx Instructions PO BEDTIME #45 01/18/22 (units unknown) (unknown) (unknown) (no date) (unknown) (unknown) quetiapine 25 mg tablet (units unknown) (unknown) (unknown) (no date) (unknown) (unknown) received per another provider. (units unknown) (unknown) (unknown) (no date) (unknown) (unknown) s (units unknown) (unknown) (unknown) (no date) (unknown) (unknown) sertraline 100 mg tablet 200 mg PO DAILY #60 tabs 01/18/22 (units unknown) (unknown) (unknown) (no date) (unknown) (unknown) sertraline 100 mg tablet (units unknown) (unknown) (unknown) (no date) (unknown) (unknown) shellfish derived Allergy Severe ANAPHYLAXIS Verified 04/22/22 14:44 (units unknown) (unknown) (unknown) (no date) (unknown) (unknown) small opening in the cuff of her hysterectomy as identified her surgeon when she (units unknown) (unknown) (unknown) (no date) (unknown) (unknown) started lactating sh e started vaginal bleeding again. She denies fever or (units unknown) (unknown) (unknown) (no date) (unknown) (unknown) sulfamethoxazole Allergy Mild RASH Verified 04/22/22 14:44 (units unknown) (unknown) (unknown) (no date) (unknown) (unknown) tabs (units unknown) (unknown) (unknown) (no date) (unknown) (unknown) through XII grossly intact. [Good eadnmp-wj-bsle, good kymk-jv-dsjk, strength (units unknown) (unknown) (unknown) (no date) (unknown) (unknown) tobacco type: vaping (units unknown) (unknown) (unknown) (no date) (unknown) (unknown) today with left lowe r quadrant pain nausea vomiting in vaginal bleeding. She (units unknown) (unknown) (unknown) (no date) (unknown) (unknown) tramadol 50 mg table t 100 mg PO BID PRN severe pain 03/22/22 (units unknown) (unknown) (unknown) (no date) (unknown) (unknown) tramadol 50 mg tablet (units unknown) (unknown) (unknown) (no date) (unknown) (unknown) trazodone 100 mg tablet See Rx Instructions .Route 11/20/21 (units unknown) (unknown) (unknown) (no date) (unknown) (unknown) trazodone 100 mg tablet (units unknown) (unknown) (unknown) (no date) (unknown) (unknown) trimethoprim [From BACTRIM] Allergy Mild RASH Verified 04/22/22 14:44 (units unknown) (unknown) Result panel 348 (unknown) (no date) (unknown) (unknown) (no value) (units unknown) (unknown) (unknown) (no date) (unknown) (unknown) (scale score 7-10) #60 tabs (units unknown) (unknown) (unknown) (no date) (unknown) (unknown) .COMPLEX #180 tabs (units unknown) (unknown) (unknown) (no date) (unknown) (unknown) 11/15/22 11/15/22 11/15/22 Range/Units (units unknown) (unknown) (unknown) (no date) (unknown) (unknown) 11/15/22 11/15/22 Range/Units (units unknown) (unknown) (unknown) (no date) (unknown) (unknown) 11/15/22 21:20 (units unknown) (unknown) (unknown) (no date) (unknown) (unknown) 11/15/22 21:32 (units unknown) (unknown) (unknown) (no date) (unknown) (unknown) 11/15/22 22:00 (units unknown) (unknown) (unknown) (no date) (unknown) (unknown) 11/15/22 (units unknown) (unknown) (unknown) (no date) (unknown) (unknown) 1 tab PO Q8H PRN (Reason: pain) Qty: 6 0RF (units unknown) (unknown) (unknown) (no date) (unknown) (unknown) 10 mg PO QID Qty: 12 0 2RF (units unknown) (unknown) (unknown) (no date) (unknown) (unknown) 100 mg PO BEDTIME (units unknown) (unknown) (unknown) (no date) (unknown) (unknown) 100 mg PO BID PRN (Reason: severe pain (scale score 7-10)) Qty: 60 0RF (units unknown) (unknown) (unknown) (no date) (unknown) (unknown) 2 g topical QID Qty: 100 3RF (units unknown) (unknown) (unknown) (no date) (unknown) (unknown) 200 mg PO DAILY Qty: 30 2RF (units unknown) (unknown) (unknown) (no date) (unknown) (unknown) 200 mg PO DAILY Qty: 60 2RF (units unknown) (unknown) (unknown) (no date) (unknown) (unknown) 21:09 11/15/22 (units unknown) (unknown) (unknown) (no date) (unknown) (unknown) 21:20 21:32 21:32 (units unknown) (unknown) (unknown) (no date) (unknown) (unknown) 21:32 21:32 (units unknown) (unknown) (unknown) (no date) (unknown) (unknown) 22:00 (units unknown) (unknown) (unknown) (no date) (unknown) (unknown) 5 mg PO Q6H PRN (Reason: pain) Qty: 14 0RF (units unknown) (unknown) (unknown) (no date) (unknown) (unknown) 5 mg PO TID PRN (Reason: muscle spasm) Qty: 10 0RF (units unknown) (unknown) (unknown) (no date) (unknown) (unknown) 500 mg PO BID Qty: 6 0 0RF (units unknown) (unknown) (unknown) (no date) (unknown) (unknown) : [id number] (units unknown) (unknown) (unknown) (no date) (unknown) (unknown) ABDOMEN: Soft, mild tenderness left quadrant guarding rebound (units unknown) (unknown) (unknown) (no date) (unknown) (unknown) ALT (<35) IU/L (units unknown) (unknown) (unknown) (no date) (unknown) (unknown) ALT 16 (<35) IU/L (units unknown) (unknown) (unknown) (no date) (unknown) (unknown) AST (14-36) IU/L (units unknown) (unknown) (unknown) (no date) (unknown) (unknown) AST 16 (14-36) IU/L (units unknown) (unknown) (unknown) (no date) (unknown) (unknown) Age/Sex: 27 / F (units unknown) (unknown) (unknown) (no date) (unknown) (unknown) Albumin (3.5-5.0) g/dL (units unknown) (unknown) (unknown) (no date) (unknown) (unknown) Albumin 3.9 (3.5-5.0 ) g/dL (units unknown) (unknown) (unknown) (no date) (unknown) (unknown) Albumin/Globulin Ratio (1.0-2.8) (units unknown) (unknown) (unknown) (no date) (unknown) (unknown) Albumin/Globulin Ratio 1.6 (1.0-2.8) (units unknown) (unknown) (unknown) (no date) (unknown) (unknown) Alkaline Phosphatase (38-126) U/L (units unknown) (unknown) (unknown) (no date) (unknown) (unknown) Alkaline Phosphatase 43 (38-126) U/L (units unknown) (unknown) (unknown) (no date) (unknown) (unknown) Allergies (units unknown) (unknown) (unknown) (no date) (unknown) (unknown) Allergy/AdvReac Type Severity Reaction Status Date / Time 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 (units unknown) (unknown) (unknown) (no date) (unknown) (unknown) BUN (7-17) mg/dL (units unknown) (unknown) (unknown) (no date) (unknown) (unknown) BUN 15 (7-17) mg/dL (units unknown) (unknown) (unknown) (no date) (unknown) (unknown) BUN/Creatinine Ratio (6-22) (units unknown) (unknown) (unknown) (no date) (unknown) (unknown) BUN/Creatinine Ratio 17.2 (6-22) (units unknown) (unknown) (unknown) (no date) (unknown) (unknown) Baso # (Auto) (0-100 ) /uL (units unknown) (unknown) (unknown) (no date) (unknown) (unknown) Baso # (Auto) 100 (0-100) /uL (units unknown) (unknown) (unknown) (no date) (unknown) (unknown) Baso % (Auto) (0-2) % (units unknown) (unknown) (unknown) (no date) (unknown) (unknown) Baso % (Auto) 1.9 (0-2) % (units unknown) (unknown) (unknown) (no date) (unknown) (unknown) Bedside Urine Bilirubin - Negative (units unknown) (unknown) (unknown) (no date) (unknown) (unknown) Bedside Urine Glucos e Negative (units unknown) (unknown) (unknown) (no date) (unknown) (unknown) Bedside Urine Ketone - Negative (units unknown) (unknown) (unknown) (no date) (unknown) (unknown) Bedside Urine Leukocytes + 70 (units unknown) (unknown) (unknown) (no date) (unknown) (unknown) Bedside Urine Nitrit e - Negative (units unknown) (unknown) (unknown) (no date) (unknown) (unknown) Bedside Urine Occult Blood - Negative (units unknown) (unknown) (unknown) (no date) (unknown) (unknown) Bedside Urine Protei n + 30 (units unknown) (unknown) (unknown) (no date) (unknown) (unknown) Bedside Urine Urobilinogen +/- 1mg (units unknown) (unknown) (unknown) (no date) (unknown) (unknown) Bedside Urine pH 6.0 (units unknown) (unknown) (unknown) (no date) (unknown) (unknown) Blood Pressure 140/6 3 11/15/22 21:09 (units unknown) (unknown) (unknown) (no date) (unknown) (unknown) Blood Pressure 140/6 3 140/63 (units unknown) (unknown) (unknown) (no date) (unknown) (unknown) Breast cancer (units unknown) (unknown) (unknown) (no date) (unknown) (unknown) CAD (coronary artery disease) (units unknown) (unknown) (unknown) (no date) (unknown) (unknown) CARDIOVASCULAR: Regular rate and rhythm without murmurs, rubs or gallops. (units unknown) (unknown) (unknown) (no date) (unknown) (unknown) CBC Auto Diff [Complete Blood Count AUTO DIFF] Stat (units unknown) (unknown) (unknown) (no date) (unknown) (unknown) CMP [Comprehensive Metabolic Panel] Stat (units unknown) (unknown) (unknown) (no date) (unknown) (unknown) CT abdomen pelvis wo con Stat (units unknown) (unknown) (unknown) (no date) (unknown) (unknown) Calcium (8.4-10.2) mg/dL (units unknown) (unknown) (unknown) (no date) (unknown) (unknown) Calcium 8.3 L (8.4-10.2) mg/dL (units unknown) (unknown) (unknown) (no date) (unknown) (unknown) Carbon Dioxide (22-32) mmol/L (units unknown) (unknown) (unknown) (no date) (unknown) (unknown) Carbon Dioxide 27 (22-32) mmol/L (units unknown) (unknown) (unknown) (no date) (unknown) (unknown) Chief Complaint: Abdominal Pain (units unknown) (unknown) (unknown) (no date) (unknown) (unknown) Chloride (98-107) mmol/L (units unknown) (unknown) (unknown) (no date) (unknown) (unknown) Chloride 103 (98-107 ) mmol/L (units unknown) (unknown) (unknown) (no date) (unknown) (unknown) Contract void and provider will offer no further tramadol refills if tramadol (units unknown) (unknown) (unknown) (no date) (unknown) (unknown) Course (units unknown) (unknown) (unknown) (no date) (unknown) (unknown) Creatinine (0.52-1.04) mg/dL (units unknown) (unknown) (unknown) (no date) (unknown) (unknown) Creatinine 0.87 (0.52-1.04) mg/dL (units unknown) (unknown) (unknown) (no date) (unknown) (unknown) : 1995 Acct:[id number] (units unknown) (unknown) (unknown) (no date) (unknown) (unknown) Date of Service: 11/15/22 (units unknown) (unknown) (unknown) (no date) (unknown) (unknown) Departure (units unknown) (unknown) (unknown) (no date) (unknown) (unknown) Diphenhydramine HCl (Diphenhydramine 50 Mg/Ml Vial) 25 mg IV NOW ONE (units unknown) (unknown) (unknown) (no date) (unknown) (unknown) Discharge Plan (units unknown) (unknown) (unknown) (no date) (unknown) (unknown) Discontinued Medications (units unknown) (unknown) (unknown) (no date) (unknown) (unknown) Documented By: SPF (units unknown) (unknown) (unknown) (no date) (unknown) (unknown) Dose Instruction: (units unknown) (unknown) (unknown) (no date) (unknown) (unknown) ED Orders (units unknown) (unknown) (unknown) (no date) (unknown) (unknown) ER Physician: Stephie Escalante D.O. (units unknown) (unknown) (unknown) (no date) (unknown) (unknown) EXTREMITIES: Normal range of motion, no clubbing or edema. Neurovascularly (units unknown) (unknown) (unknown) (no date) (unknown) (unknown) Emergency Report (units unknown) (unknown) (unknown) (no date) (unknown) (unknown) Endometriosis (units unknown) (unknown) (unknown) (no date) (unknown) (unknown) Eos # (Auto) (0-450) /uL (units unknown) (unknown) (unknown) (no date) (unknown) (unknown) Eos # (Auto) 100 (0-450) /uL (units unknown) (unknown) (unknown) (no date) (unknown) (unknown) Eos % (Auto) (2-4) % (units unknown) (unknown) (unknown) (no date) (unknown) (unknown) Eos % (Auto) 2.0 (2-4) % (units unknown) (unknown) (unknown) (no date) (unknown) (unknown) Esterase (units unknown) (unknown) (unknown) (no date) (unknown) (unknown) Estimated GFR > 60 (>60) mL/min (units unknown) (unknown) (unknown) (no date) (unknown) (unknown) Estimated GFR (>60) mL/min (units unknown) (unknown) (unknown) (no date) (unknown) (unknown) Exam (units unknown) (unknown) (unknown) (no date) (unknown) (unknown) Family History (units unknown) (unknown) (unknown) (no date) (unknown) (unknown) GENERAL: Alert pleasant well-appearing 27-year-old female and in no acute (units unknown) (unknown) (unknown) (no date) (unknown) (unknown) : No CVA tenderness (units unknown) (unknown) (unknown) (no date) (unknown) (unknown) General (units unknown) (unknown) (unknown) (no date) (unknown) (unknown) Globulin (1.7-4.1) g/dL (units unknown) (unknown) (unknown) (no date) (unknown) (unknown) Globulin 2.5 (1.7-4.1) g/dL (units unknown) (unknown) (unknown) (no date) (unknown) (unknown) Glucose (70-100) mg/dL (units unknown) (unknown) (unknown) (no date) (unknown) (unknown) Glucose 96 (70-100) mg/dL (units unknown) (unknown) (unknown) (no date) (unknown) (unknown) Grandmother Ovarian cancer (units unknown) (unknown) (unknown) (no date) (unknown) (unknown) H/O unilateral oophorectomy () (units unknown) (unknown) (unknown) (no date) (unknown) (unknown) H/O: hysterectomy (units unknown) (unknown) (unknown) (no date) (unknown) (unknown) HEENT: Head atraumatic,EOMI, pupils reactive, face symmetric, moist mucous (units unknown) (unknown) (unknown) (no date) (unknown) (unknown) HPI - Abdominal Pain (units unknown) (unknown) (unknown) (no date) (unknown) (unknown) HPI narrative: (units unknown) (unknown) (unknown) (no date) (unknown) (unknown) Hct (36-46) % (units unknown) (unknown) (unknown) (no date) (unknown) (unknown) Hct 35.8 L (36-46) % (units unknown) (unknown) (unknown) (no date) (unknown) (unknown) Hematuria (units unknown) (unknown) (unknown) (no date) (unknown) (unknown) Hgb (12.0-16.0) g/dL (units unknown) (unknown) (unknown) (no date) (unknown) (unknown) Hgb 12.6 (12.0-16.0) g/dL (units unknown) (unknown) (unknown) (no date) (unknown) (unknown) History of Present Illness (units unknown) (unknown) (unknown) (no date) (unknown) (unknown) History of ureter stent (units unknown) (unknown) (unknown) (no date) (unknown) (unknown) Hold Instructions: NEEDS TO SEE NEUROLOGY (units unknown) (unknown) (unknown) (no date) (unknown) (unknown) Hold Instructions: SEEN BY PSYCHIATRY (units unknown) (unknown) (unknown) (no date) (unknown) (unknown) Home Medications (units unknown) (unknown) (unknown) (no date) (unknown) (unknown) Hydromorphone HCl (Hydromorphone 1 Mg Inj) 1 mg IV NOW ONE (units unknown) (unknown) (unknown) (no date) (unknown) (unknown) Hyperlipidemia (units unknown) (unknown) (unknown) (no date) (unknown) (unknown) Hypertension (units unknown) (unknown) (unknown) (no date) (unknown) (unknown) INJECT INTRAMUSCULARLY EVERY 20 MINUTES NEEDED FOR ANAPHYLAXIS UNTIL (units unknown) (unknown) (unknown) (no date) (unknown) (unknown) IV DYE] (units unknown) (unknown) (unknown) (no date) (unknown) (unknown) Initial Vital Signs (units unknown) (unknown) (unknown) (no date) (unknown) (unknown) Initial Vital Signs: (units unknown) (unknown) (unknown) (no date) (unknown) (unknown) Iodinated Contrast Media Allergy Unknown Verified 04/22/22 14:44 (units unknown) (unknown) (unknown) (no date) (unknown) (unknown) [address] [address] (units unknown) (unknown) (unknown) (no date) (unknown) (unknown) Lab Data (units unknown) (unknown) (unknown) (no date) (unknown) (unknown) Lab Results (units unknown) (unknown) (unknown) (no date) (unknown) (unknown) Labs: (units unknown) (unknown) (unknown) (no date) (unknown) (unknown) Lactate (0.7-2.1) mmol/L (units unknown) (unknown) (unknown) (no date) (unknown) (unknown) Lactate (Lactic Acid ) Stat (units unknown) (unknown) (unknown) (no date) (unknown) (unknown) Lactate 1.2 (0.7-2.1 ) mmol/L (units unknown) (unknown) (unknown) (no date) (unknown) (unknown) Last Admin: 11/15/22 22:00 Dose: 10 mg (units unknown) (unknown) (unknown) (no date) (unknown) (unknown) Last Admin: 11/15/22 22:01 Dose: 40 mg (units unknown) (unknown) (unknown) (no date) (unknown) (unknown) Last Admin: 11/15/22 22:21 Dose: Not Given (units unknown) (unknown) (unknown) (no date) (unknown) (unknown) Last Admin: 11/15/22 22:24 Dose: 1,000 mls/hr (units unknown) (unknown) (unknown) (no date) (unknown) (unknown) Limit as possible. Prescribed per 03/21 signed pain management contract. (units unknown) (unknown) (unknown) (no date) (unknown) (unknown) Lipase (23-300) U/L (units unknown) (unknown) (unknown) (no date) (unknown) (unknown) Lipase 86 (23-300) U/L (units unknown) (unknown) (unknown) (no date) (unknown) (unknown) Lipase Stat (units unknown) (unknown) (unknown) (no date) (unknown) (unknown) Lymph # (Auto) (5706-3113) /uL (units unknown) (unknown) (unknown) (no date) (unknown) (unknown) Lymph # (Auto) 2200 (1550-9836) /uL (units unknown) (unknown) (unknown) (no date) (unknown) (unknown) Lymph % (Auto) (25-40) % (units unknown) (unknown) (unknown) (no date) (unknown) (unknown) Lymph % (Auto) 34.4 (25-40) % (units unknown) (unknown) (unknown) (no date) (unknown) (unknown) MCH (26-34) PG (units unknown) (unknown) (unknown) (no date) (unknown) (unknown) MCH 31.2 (26-34) PG (units unknown) (unknown) (unknown) (no date) (unknown) (unknown) MCHC (30-36) % (units unknown) (unknown) (unknown) (no date) (unknown) (unknown) MCHC 35.3 (30-36) % (units unknown) (unknown) (unknown) (no date) (unknown) (unknown) MCV (80-100) fL (units unknown) (unknown) (unknown) (no date) (unknown) (unknown) MCV 88.6 (80-100) fL (units unknown) (unknown) (unknown) (no date) (unknown) (unknown) MDM - Abdominal Pain (units unknown) (unknown) (unknown) (no date) (unknown) (unknown) Major depressive disorder (units unknown) (unknown) (unknown) (no date) (unknown) (unknown) Medical History (units unknown) (unknown) (unknown) (no date) (unknown) (unknown) Medication Instructions Recorded Confirmed (units unknown) (unknown) (unknown) (no date) (unknown) (unknown) Medication Instructions Recorded (units unknown) (unknown) (unknown) (no date) (unknown) (unknown) Methylprednisolone (Methylprednisolone 125 Mg/2 Ml Vial) 125 mg IV NOW ONE (units unknown) (unknown) (unknown) (no date) (unknown) (unknown) [place] # (Auto) (0-900 ) /uL (units unknown) (unknown) (unknown) (no date) (unknown) (unknown) [place] # (Auto) 400 (0-900) /uL (units unknown) (unknown) (unknown) (no date) (unknown) (unknown) [place] % (Auto) (3-14) % (units unknown) (unknown) (unknown) (no date) (unknown) (unknown) [place] % (Auto) 6.9 (3-14) % (units unknown) (unknown) (unknown) (no date) (unknown) (unknown) Morbid obesity (units unknown) (unknown) (unknown) (no date) (unknown) (unknown) Mother BRCA positive (units unknown) (unknown) (unknown) (no date) (unknown) (unknown) NEUROLOGICAL: Alert and oriented x4.Normal gait and speech. (units unknown) (unknown) (unknown) (no date) (unknown) (unknown) Nephrolithiasis () (units unknown) (unknown) (unknown) (no date) (unknown) (unknown) Neut # (Auto) (5491-0027) /uL (units unknown) (unknown) (unknown) (no date) (unknown) (unknown) Neut # (Auto) 3500 (4077-3715) /uL (units unknown) (unknown) (unknown) (no date) (unknown) (unknown) Neut % (Auto) (50-75 ) % (units unknown) (unknown) (unknown) (no date) (unknown) (unknown) Neut % (Auto) 54.8 (50-75) % (units unknown) (unknown) (unknown) (no date) (unknown) (unknown) No Action (units unknown) (unknown) (unknown) (no date) (unknown) (unknown) Ordered: (units unknown) (unknown) (unknown) (no date) (unknown) (unknown) Orders (units unknown) (unknown) (unknown) (no date) (unknown) (unknown) Ovarian cyst (units unknown) (unknown) (unknown) (no date) (unknown) (unknown) Oxygen Delivery Method Room Air 11/15/22 21:09 (units unknown) (unknown) (unknown) (no date) (unknown) (unknown) Oxygen Delivery Method Room Air (units unknown) (unknown) (unknown) (no date) (unknown) (unknown) PCOS (polycystic ovarian syndrome) (units unknown) (unknown) (unknown) (no date) (unknown) (unknown) Pantoprazole Sodium (Pantoprazole 40 Mg Vial) 40 mg IV NOW ONE (units unknown) (unknown) (unknown) (no date) (unknown) (unknown) Patellar dislocation (units unknown) (unknown) (unknown) (no date) (unknown) (unknown) Patient 27-year-old female with significant history of anxiety, psychogenic (units unknown) (unknown) (unknown) (no date) (unknown) (unknown) Patient History (units unknown) (unknown) (unknown) (no date) (unknown) (unknown) Patient: Calin Jorgensen MR# (units unknown) (unknown) (unknown) (no date) (unknown) (unknown) Pelvic congestion (2013) (units unknown) (unknown) (unknown) (no date) (unknown) (unknown) Penicillins [PENICILLINS] Allergy Mild Verified 04/22/22 14:44 (units unknown) (unknown) (unknown) (no date) (unknown) (unknown) Plt Count (150-400) X103/uL (units unknown) (unknown) (unknown) (no date) (unknown) (unknown) Plt Count 245 (150-400) X103/uL (units unknown) (unknown) (unknown) (no date) (unknown) (unknown) Point of Care Testing (units unknown) (unknown) (unknown) (no date) (unknown) (unknown) Point of care testing: (units unknown) (unknown) (unknown) (no date) (unknown) (unknown) Potassium (3.4-5.1) mmol/L (units unknown) (unknown) (unknown) (no date) (unknown) (unknown) Potassium 3.6 (3.4-5.1) mmol/L (units unknown) (unknown) (unknown) (no date) (unknown) (unknown) Test Results Negative (units unknown) (unknown) (unknown) (no date) (unknown) (unknown) Prescriptions: (units unknown) (unknown) (unknown) (no date) (unknown) (unknown) Previous Rx's (units unknown) (unknown) (unknown) (no date) (unknown) (unknown) Procalcitonin < 0.03 (<0.5) ng/mL (units unknown) (unknown) (unknown) (no date) (unknown) (unknown) Procalcitonin (<0.5) ng/mL (units unknown) (unknown) (unknown) (no date) (unknown) (unknown) Procalcitonin Stat (units unknown) (unknown) (unknown) (no date) (unknown) (unknown) Prochlorperazine (Prochlorperazine 10 Mg/2 Ml Vial) 10 mg IV NOW ONE (units unknown) (unknown) (unknown) (no date) (unknown) (unknown) Psychogenic nonepileptic seizure (units unknown) (unknown) (unknown) (no date) (unknown) (unknown) Pulse Oximetry 97 11/15/22 21:09 (units unknown) (unknown) (unknown) (no date) (unknown) (unknown) Pulse Oximetry 97 (units unknown) (unknown) (unknown) (no date) (unknown) (unknown) Pulse Rate 78 11/15/22 21:09 (units unknown) (unknown) (unknown) (no date) (unknown) (unknown) Pulse Rate 78 60 (units unknown) (unknown) (unknown) (no date) (unknown) (unknown) RBC (4.0-5.2) X106/uL (units unknown) (unknown) (unknown) (no date) (unknown) (unknown) RBC 4.04 (4.0-5.2) X106/uL (units unknown) (unknown) (unknown) (no date) (unknown) (unknown) RDW (11.6-14.8) % (units unknown) (unknown) (unknown) (no date) (unknown) (unknown) RDW 12.7 (11.6-14.8) % (units unknown) (unknown) (unknown) (no date) (unknown) (unknown) RESPIRATORY: Breath sounds equal bilaterally, no wheezes rales or rhonchi. (units unknown) (unknown) (unknown) (no date) (unknown) (unknown) RESPONSE (units unknown) (unknown) (unknown) (no date) (unknown) (unknown) Referrals: (units unknown) (unknown) (unknown) (no date) (unknown) (unknown) Related Data (units unknown) (unknown) (unknown) (no date) (unknown) (unknown) Respiratory Rate 16 11/15/22 21:09 (units unknown) (unknown) (unknown) (no date) (unknown) (unknown) Respiratory Rate 16 (units unknown) (unknown) (unknown) (no date) (unknown) (unknown) Rx Instructions: (units unknown) (unknown) (unknown) (no date) (unknown) (unknown) SKIN: Warm, dry, no laceration, no petechiae, no rashes or lesions. (units unknown) (unknown) (unknown) (no date) (unknown) (unknown) See Rx Instructions .ROUTE .COMPLEX Qty: 180 0RF (units unknown) (unknown) (unknown) (no date) (unknown) (unknown) See Rx Instructions .ROUTE .COMPLEX Qty: 2 0RF (units unknown) (unknown) (unknown) (no date) (unknown) (unknown) See Rx Instructions PO BEDTIME Qty: 45 2RF (units unknown) (unknown) (unknown) (no date) (unknown) (unknown) Signed By: (units unknown) (unknown) (unknown) (no date) (unknown) (unknown) [facility] recently for an EGD which she was found to have erosive (units unknown) (unknown) (unknown) (no date) (unknown) (unknown) Smoking Status: Current every day smoker (units unknown) (unknown) (unknown) (no date) (unknown) (unknown) Social History (units unknown) (unknown) (unknown) (no date) (unknown) (unknown) Sodium (137-145) mmol/L (units unknown) (unknown) (unknown) (no date) (unknown) (unknown) Sodium 136 L (137-145) mmol/L (units unknown) (unknown) (unknown) (no date) (unknown) (unknown) Sodium Chloride (Normal Saline 0.9%) 1,000 mls @ 1,000 mls/hr IV BOLUS ONE (units unknown) (unknown) (unknown) (no date) (unknown) (unknown) Stated Complaint: abdominal pain, vomiting blood (units unknown) (unknown) (unknown) (no date) (unknown) (unknown) Status post appendectomy (2003) (units unknown) (unknown) (unknown) (no date) (unknown) (unknown) Status post bilatera l salpingectomy (10/21/17) (units unknown) (unknown) (unknown) (no date) (unknown) (unknown) Status post dilation and curettage (2010) (units unknown) (unknown) (unknown) (no date) (unknown) (unknown) Status post dilation and curettage (2011) (units unknown) (unknown) (unknown) (no date) (unknown) (unknown) Status post knee surgery (2007) (units unknown) (unknown) (unknown) (no date) (unknown) (unknown) Status post knee surgery (2012) (units unknown) (unknown) (unknown) (no date) (unknown) (unknown) Status post laparoscopic supracervical hysterectomy (10/21/17) (units unknown) (unknown) (unknown) (no date) (unknown) (unknown) Status post laparoscopy (-06/2020) (units unknown) (unknown) (unknown) (no date) (unknown) (unknown) Status post laparoscopy (2003) (units unknown) (unknown) (unknown) (no date) (unknown) (unknown) Status post laparoscopy (2004) (units unknown) (unknown) (unknown) (no date) (unknown) (unknown) Status post laparoscopy (2011) (units unknown) (unknown) (unknown) (no date) (unknown) (unknown) Status post removal of cervix (units unknown) (unknown) (unknown) (no date) (unknown) (unknown) Status post tonsillectomy and adenoidectomy (units unknown) (unknown) (unknown) (no date) (unknown) (unknown) Stop: 11/15/22 21:42 (units unknown) (unknown) (unknown) (no date) (unknown) (unknown) Stop: 11/15/22 22:03 (units unknown) (unknown) (unknown) (no date) (unknown) (unknown) Stop: 11/15/22 22:12 (units unknown) (unknown) (unknown) (no date) (unknown) (unknown) Stop: 11/15/22 22:51 (units unknown) (unknown) (unknown) (no date) (unknown) (unknown) Substance Use Type: does not use (units unknown) (unknown) (unknown) (no date) (unknown) (unknown) Surgical History (units unknown) (unknown) (unknown) (no date) (unknown) (unknown) TAKE 2 TABLETS BY MOUTH AT BEDTIME NEEDED FOR INSOMNIA (units unknown) (unknown) (unknown) (no date) (unknown) (unknown) Take 1 tab p.o. at HS. May take 1/2 tab p.o. during the day for anxiety (units unknown) (unknown) (unknown) (no date) (unknown) (unknown) Temperature 97.6 F 11/15/22 21:09 (units unknown) (unknown) (unknown) (no date) (unknown) (unknown) Temperature 97.6 F (units unknown) (unknown) (unknown) (no date) (unknown) (unknown) Time Seen by Provider: 11/15/22 21:09 (units unknown) (unknown) (unknown) (no date) (unknown) (unknown) Total Bilirubin (0.2-1.3) mg/dL (units unknown) (unknown) (unknown) (no date) (unknown) (unknown) Total Bilirubin 0.5 (0.2-1.3) mg/dL (units unknown) (unknown) (unknown) (no date) (unknown) (unknown) Total Protein (6.3-8.2) g/dL (units unknown) (unknown) (unknown) (no date) (unknown) (unknown) Total Protein 6.4 (6.3-8.2) g/dL (units unknown) (unknown) (unknown) (no date) (unknown) (unknown) UA Complete [Urinalysis and Microscopic] Stat (units unknown) (unknown) (unknown) (no date) (unknown) (unknown) Ur Culture Indicated ? Specimen cultured (units unknown) (unknown) (unknown) (no date) (unknown) (unknown) Ur Culture Indicated? (units unknown) (unknown) (unknown) (no date) (unknown) (unknown) Ur Leukocyte [place] e (NEGATIVE) (units unknown) (unknown) (unknown) (no date) (unknown) (unknown) Ur Leukocyte [place] e 1+ H (NEGATIVE) (units unknown) (unknown) (unknown) (no date) (unknown) (unknown) Ur Specific [place] (1.000-1.035) (units unknown) (unknown) (unknown) (no date) (unknown) (unknown) Ur Specific [place] 1.025 (1.000-1.035) (units unknown) (unknown) (unknown) (no date) (unknown) (unknown) Ur Squamous Epith Cells (0-5/HPF) (units unknown) (unknown) (unknown) (no date) (unknown) (unknown) Ur Squamous Epith Cells 1-5 /hpf D (0-5/HPF) (units unknown) (unknown) (unknown) (no date) (unknown) (unknown) Urine Appearance Cloudy (units unknown) (unknown) (unknown) (no date) (unknown) (unknown) Urine Appearance (units unknown) (unknown) (unknown) (no date) (unknown) (unknown) Urine Bacteria (None) (units unknown) (unknown) (unknown) (no date) (unknown) (unknown) Urine Bacteria Occasional (0-1) (None) (units unknown) (unknown) (unknown) (no date) (unknown) (unknown) Urine Bilirubin (NEGATIVE) (units unknown) (unknown) (unknown) (no date) (unknown) (unknown) Urine Bilirubin Negative (NEGATIVE) (units unknown) (unknown) (unknown) (no date) (unknown) (unknown) Urine Color Red (units unknown) (unknown) (unknown) (no date) (unknown) (unknown) Urine Color (units unknown) (unknown) (unknown) (no date) (unknown) (unknown) Urine Culture Stat (units unknown) (unknown) (unknown) (no date) (unknown) (unknown) Urine Dip (units unknown) (unknown) (unknown) (no date) (unknown) (unknown) Urine Glucose (UA) (Negative) g/dL (units unknown) (unknown) (unknown) (no date) (unknown) (unknown) Urine Glucose (UA) Negative (Negative) g/dL (units unknown) (unknown) (unknown) (no date) (unknown) (unknown) Urine Ketones (NEGATIVE) (units unknown) (unknown) (unknown) (no date) (unknown) (unknown) Urine Ketones Negative (NEGATIVE) (units unknown) (unknown) (unknown) (no date) (unknown) (unknown) Urine Nitrate (Negative) (units unknown) (unknown) (unknown) (no date) (unknown) (unknown) Urine Nitrate Negative (Negative) (units unknown) (unknown) (unknown) (no date) (unknown) (unknown) Urine Occult Blood (Negative) (units unknown) (unknown) (unknown) (no date) (unknown) (unknown) Urine Occult Blood 3 + H (Negative) (units unknown) (unknown) (unknown) (no date) (unknown) (unknown) Urine Protein (Negative) (units unknown) (unknown) (unknown) (no date) (unknown) (unknown) Urine Protein 1+ H (Negative) (units unknown) (unknown) (unknown) (no date) (unknown) (unknown) Urine RBC >100/hpf H (0-5/HPF) (units unknown) (unknown) (unknown) (no date) (unknown) (unknown) Urine RBC (0-5/HPF) (units unknown) (unknown) (unknown) (no date) (unknown) (unknown) Urine Specific [place] 1.020 (units unknown) (unknown) (unknown) (no date) (unknown) (unknown) Urine Urobilinogen (0.2) E.U./dL (units unknown) (unknown) (unknown) (no date) (unknown) (unknown) Urine Urobilinogen 1.0 (0.2) E.U./dL (units unknown) (unknown) (unknown) (no date) (unknown) (unknown) Urine WBC (0-5/HPF) (units unknown) (unknown) (unknown) (no date) (unknown) (unknown) Urine WBC 1-5/hpf (0-5/HPF) (units unknown) (unknown) (unknown) (no date) (unknown) (unknown) Urine pH (4.5-8.0) (units unknown) (unknown) (unknown) (no date) (unknown) (unknown) Urine pH 6.5 (4.5-8.0) (units unknown) (unknown) (unknown) (no date) (unknown) (unknown) Vital Signs - 8 hr (units unknown) (unknown) (unknown) (no date) (unknown) (unknown) Vital Signs (units unknown) (unknown) (unknown) (no date) (unknown) (unknown) Vital signs: (units unknown) (unknown) (unknown) (no date) (unknown) (unknown) WBC (4.5-11.0) X103/uL (units unknown) (unknown) (unknown) (no date) (unknown) (unknown) WBC 6.4 (4.5-11.0) X103/uL (units unknown) (unknown) (unknown) (no date) (unknown) (unknown) Christi Johnson , DNP, INFLATABLE BUILDINGS LAMINATOR [Primary Care Provider] (units unknown) (unknown) (unknown) (no date) (unknown) (unknown) [Embedded Image Not Available] (units unknown) (unknown) (unknown) (no date) (unknown) (unknown) [From BACTRIM] (units unknown) (unknown) (unknown) (no date) (unknown) (unknown) [IODINATED CONTRAST MEDIA (units unknown) (unknown) (unknown) (no date) (unknown) (unknown) [METOCLOPRAMIDE] (units unknown) (unknown) (unknown) (no date) (unknown) (unknown) [SHELLFISH DERIVED] (units unknown) (unknown) (unknown) (no date) (unknown) (unknown) actually was seen evaluated by her primary care provider yesterday she was (units unknown) (unknown) (unknown) (no date) (unknown) (unknown) adhesive [ADHESIVE] Allergy Mild Verified 04/22/22 14:44 (units unknown) (unknown) (unknown) (no date) (unknown) (unknown) alcohol intake frequency: holidays/special occasions only (units unknown) (unknown) (unknown) (no date) (unknown) (unknown) amoxicillin [AMOXICILLIN] Allergy Mild Verified 04/22/22 14:44 (units unknown) (unknown) (unknown) (no date) (unknown) (unknown) apply to single elbow, wrist or hand; for hand includes palm/fingers/back of (units unknown) (unknown) (unknown) (no date) (unknown) (unknown) cephalexin [CEPHALEXIN] Allergy Unknown Verified 04/22/22 14:44 (units unknown) (unknown) (unknown) (no date) (unknown) (unknown) chills. No flank pain. He is had multiple CTs previously. She was admitted at (units unknown) (unknown) (unknown) (no date) (unknown) (unknown) ciprofloxacin [CIPROFLOXACIN] Allergy Unknown Verified 04/22/22 14:44 (units unknown) (unknown) (unknown) (no date) (unknown) (unknown) clindamycin [CLINDAMYCIN] Allergy Unknown Verified 04/22/22 14:44 (units unknown) (unknown) (unknown) (no date) (unknown) (unknown) diazepam 10 mg table t 10 mg PO QID #120 tabs 10/12/21 (units unknown) (unknown) (unknown) (no date) (unknown) (unknown) diazepam 10 mg tablet (units unknown) (unknown) (unknown) (no date) (unknown) (unknown) diazepam 5 mg tablet (Valium) 5 mg PO TID PRN muscle spasm #10 10/19/21 (units unknown) (unknown) (unknown) (no date) (unknown) (unknown) diazepam [Valium] 5 mg tablet (units unknown) (unknown) (unknown) (no date) (unknown) (unknown) diclofenac sodium 1 % gel (units unknown) (unknown) (unknown) (no date) (unknown) (unknown) diclofenac sodium 1 % topical gel 2 g topical QID #100 grams 05/05/22 (units unknown) (unknown) (unknown) (no date) (unknown) (unknown) distress. (units unknown) (unknown) (unknown) (no date) (unknown) (unknown) doxycycline [DOXYCYCLINE] Allergy Mild Verified 04/22/22 14:44 (units unknown) (unknown) (unknown) (no date) (unknown) (unknown) epinephrine 0.3 mg/0.3 mL See Rx Instructions .Route 02/27/22 (units unknown) (unknown) (unknown) (no date) (unknown) (unknown) epinephrine 0.3 mg/0.3 mL auto-injector (units unknown) (unknown) (unknown) (no date) (unknown) (unknown) gastritis. She can not have NSAIDs. She is taking oxycodone. (units unknown) (unknown) (unknown) (no date) (unknown) (unknown) hand (units unknown) (unknown) (unknown) (no date) (unknown) (unknown) having galactorrhea which started 2 days ago. She says this is persisting. She (units unknown) (unknown) (unknown) (no date) (unknown) (unknown) household members: spouse and children (units unknown) (unknown) (unknown) (no date) (unknown) (unknown) hydrocodone Allergy Mild rash Verified 04/22/22 14:44 (units unknown) (unknown) (unknown) (no date) (unknown) (unknown) injection, auto-injector .COMPLEX #2 ea (units unknown) (unknown) (unknown) (no date) (unknown) (unknown) intact (units unknown) (unknown) (unknown) (no date) (unknown) (unknown) iodine [IODINE] Allergy Mild Verified 04/22/22 14:44 (units unknown) (unknown) (unknown) (no date) (unknown) (unknown) is metoclopramide Phenergan and oxycodone all which increase and (units unknown) (unknown) (unknown) (no date) (unknown) (unknown) lamotrigine 200 mg tablet 200 mg PO DAILY #30 tabs 01/18/22 (units unknown) (unknown) (unknown) (no date) (unknown) (unknown) lamotrigine 200 mg tablet (units unknown) (unknown) (unknown) (no date) (unknown) (unknown) latex [LATEX] Allerg y Unknown Verified 04/22/22 14:44 (units unknown) (unknown) (unknown) (no date) (unknown) (unknown) lidocaine AdvReac Palpitation Verified 04/22/22 14:44 (units unknown) (unknown) (unknown) (no date) (unknown) (unknown) lives independently: Yes (units unknown) (unknown) (unknown) (no date) (unknown) (unknown) marital status: (units unknown) (unknown) (unknown) (no date) (unknown) (unknown) membranes (units unknown) (unknown) (unknown) (no date) (unknown) (unknown) metformin 500 mg tablet 500 mg PO BID #60 tabs 02/21/22 (units unknown) (unknown) (unknown) (no date) (unknown) (unknown) metformin 500 mg tablet (units unknown) (unknown) (unknown) (no date) (unknown) (unknown) metoclopramide Allergy Mild Verified 04/22/22 14:44 (units unknown) (unknown) (unknown) (no date) (unknown) (unknown) mg tablet (Percocet) (units unknown) (unknown) (unknown) (no date) (unknown) (unknown) multiple EGDs, e history of vaginal bleeding despite hysterectomy, presents (units unknown) (unknown) (unknown) (no date) (unknown) (unknown) neuroleptic seizures , PTSD depression, erosive gastritis causing hematemesis (units unknown) (unknown) (unknown) (no date) (unknown) (unknown) occupational status: employed (units unknown) (unknown) (unknown) (no date) (unknown) (unknown) oxycodone 10 mg tablet 5 mg PO Q6H PRN pain #14 tabs 05/05/22 (units unknown) (unknown) (unknown) (no date) (unknown) (unknown) oxycodone 10 mg tablet (units unknown) (unknown) (unknown) (no date) (unknown) (unknown) oxycodone-acetaminop h en 5 mg-325 1 tab PO Q8H PRN pain #6 tabs 04/22/22 (units unknown) (unknown) (unknown) (no date) (unknown) (unknown) oxycodone-acetaminop h en [Percocet] 5-325 mg tablet (units unknown) (unknown) (unknown) (no date) (unknown) (unknown) prolactin levels. Sh e apparently does have vaginal bleeding there is a known (units unknown) (unknown) (unknown) (no date) (unknown) (unknown) quetiapine 100 mg tablet 100 mg PO BEDTIME 02/27/22 02/27/22 (units unknown) (unknown) (unknown) (no date) (unknown) (unknown) quetiapine 100 mg tablet (units unknown) (unknown) (unknown) (no date) (unknown) (unknown) quetiapine 25 mg tablet See Rx Instructions PO BEDTIME #45 01/18/22 (units unknown) (unknown) (unknown) (no date) (unknown) (unknown) quetiapine 25 mg tablet (units unknown) (unknown) (unknown) (no date) (unknown) (unknown) received per another provider. (units unknown) (unknown) (unknown) (no date) (unknown) (unknown) s (units unknown) (unknown) (unknown) (no date) (unknown) (unknown) sertraline 100 mg tablet 200 mg PO DAILY #60 tabs 01/18/22 (units unknown) (unknown) (unknown) (no date) (unknown) (unknown) sertraline 100 mg tablet (units unknown) (unknown) (unknown) (no date) (unknown) (unknown) shellfish derived Allergy Severe ANAPHYLAXIS Verified 04/22/22 14:44 (units unknown) (unknown) (unknown) (no date) (unknown) (unknown) small opening in the cuff of her hysterectomy as identified her surgeon when she (units unknown) (unknown) (unknown) (no date) (unknown) (unknown) started lactating sh michelle started vaginal bleeding again. She denies fever or (units unknown) (unknown) (unknown) (no date) (unknown) (unknown) sulfamethoxazole Allergy Mild RASH Verified 04/22/22 14:44 (units unknown) (unknown) (unknown) (no date) (unknown) (unknown) tabs (units unknown) (unknown) (unknown) (no date) (unknown) (unknown) tobacco type: vaping (units unknown) (unknown) (unknown) (no date) (unknown) (unknown) today with left lowe r quadrant pain nausea vomiting in vaginal bleeding. She (units unknown) (unknown) (unknown) (no date) (unknown) (unknown) tramadol 50 mg table t 100 mg PO BID PRN severe pain 03/22/22 (units unknown) (unknown) (unknown) (no date) (unknown) (unknown) tramadol 50 mg tablet (units unknown) (unknown) (unknown) (no date) (unknown) (unknown) trazodone 100 mg tablet See Rx Instructions .Route 11/20/21 (units unknown) (unknown) (unknown) (no date) (unknown) (unknown) trazodone 100 mg tablet (units unknown) (unknown) (unknown) (no date) (unknown) (unknown) trimethoprim [From BACTRIM] Allergy Mild RASH Verified 04/22/22 14:44 (units unknown) (unknown) Result panel 349 (unknown) (no date) (unknown) (unknown) (no value) (units unknown) (unknown) (unknown) (no date) (unknown) (unknown) (scale score 7-10) #60 tabs (units unknown) (unknown) (unknown) (no date) (unknown) (unknown) .COMPLEX #180 tabs (units unknown) (unknown) (unknown) (no date) (unknown) (unknown) 11/15/22 11/15/22 11/15/22 Range/Units (units unknown) (unknown) (unknown) (no date) (unknown) (unknown) 11/15/22 11/15/22 Range/Units (units unknown) (unknown) (unknown) (no date) (unknown) (unknown) 11/15/22 21:20 (units unknown) (unknown) (unknown) (no date) (unknown) (unknown) 11/15/22 21:32 (units unknown) (unknown) (unknown) (no date) (unknown) (unknown) 11/15/22 22:00 (units unknown) (unknown) (unknown) (no date) (unknown) (unknown) 11/15/22 (units unknown) (unknown) (unknown) (no date) (unknown) (unknown) 1 tab PO Q8H PRN (Reason: pain) Qty: 6 0RF (units unknown) (unknown) (unknown) (no date) (unknown) (unknown) 10 mg PO QID Qty: 12 0 2RF (units unknown) (unknown) (unknown) (no date) (unknown) (unknown) 100 mg PO BEDTIME (units unknown) (unknown) (unknown) (no date) (unknown) (unknown) 100 mg PO BID PRN (Reason: severe pain (scale score 7-10)) Qty: 60 0RF (units unknown) (unknown) (unknown) (no date) (unknown) (unknown) 2 g topical QID Qty: 100 3RF (units unknown) (unknown) (unknown) (no date) (unknown) (unknown) 200 mg PO DAILY Qty: 30 2RF (units unknown) (unknown) (unknown) (no date) (unknown) (unknown) 200 mg PO DAILY Qty: 60 2RF (units unknown) (unknown) (unknown) (no date) (unknown) (unknown) 21:09 11/15/22 (units unknown) (unknown) (unknown) (no date) (unknown) (unknown) 21:20 21:32 21:32 (units unknown) (unknown) (unknown) (no date) (unknown) (unknown) 21:32 21:32 (units unknown) (unknown) (unknown) (no date) (unknown) (unknown) 22:00 (units unknown) (unknown) (unknown) (no date) (unknown) (unknown) 5 mg PO Q6H PRN (Reason: pain) Qty: 14 0RF (units unknown) (unknown) (unknown) (no date) (unknown) (unknown) 5 mg PO TID PRN (Reason: muscle spasm) Qty: 10 0RF (units unknown) (unknown) (unknown) (no date) (unknown) (unknown) 5 mm (units unknown) (unknown) (unknown) (no date) (unknown) (unknown) 500 mg PO BID Qty: 6 0 0RF (units unknown) (unknown) (unknown) (no date) (unknown) (unknown) : [id number] (units unknown) (unknown) (unknown) (no date) (unknown) (unknown) ? (units unknown) (unknown) (unknown) (no date) (unknown) (unknown) ABDOMEN: Soft, mild tenderness left quadrant guarding rebound (units unknown) (unknown) (unknown) (no date) (unknown) (unknown) ALT (<35) IU/L (units unknown) (unknown) (unknown) (no date) (unknown) (unknown) ALT 16 (<35) IU/L (units unknown) (unknown) (unknown) (no date) (unknown) (unknown) AST (14-36) IU/L (units unknown) (unknown) (unknown) (no date) (unknown) (unknown) AST 16 (14-36) IU/L (units unknown) (unknown) (unknown) (no date) (unknown) (unknown) Admin: 11/15/22 22:2 4 Dose: 1,000 mls/hr (units unknown) (unknown) (unknown) (no date) (unknown) (unknown) Age/Sex: 27 / F (units unknown) (unknown) (unknown) (no date) (unknown) (unknown) Albumin (3.5-5.0) g/dL (units unknown) (unknown) (unknown) (no date) (unknown) (unknown) Albumin 3.9 (3.5-5.0 ) g/dL (units unknown) (unknown) (unknown) (no date) (unknown) (unknown) Albumin/Globulin Ratio (1.0-2.8) (units unknown) (unknown) (unknown) (no date) (unknown) (unknown) Albumin/Globulin Ratio 1.6 (1.0-2.8) (units unknown) (unknown) (unknown) (no date) (unknown) (unknown) Alkaline Phosphatase (38-126) U/L (units unknown) (unknown) (unknown) (no date) (unknown) (unknown) Alkaline Phosphatase 43 (38-126) U/L (units unknown) (unknown) (unknown) (no date) (unknown) (unknown) Allergies (units unknown) (unknown) (unknown) (no date) (unknown) (unknown) Allergy/AdvReac Type Severity Reaction Status Date / Time 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 (units unknown) (unknown) (unknown) (no date) (unknown) (unknown) BUN (7-17) mg/dL (units unknown) (unknown) (unknown) (no date) (unknown) (unknown) BUN 15 (7-17) mg/dL (units unknown) (unknown) (unknown) (no date) (unknown) (unknown) BUN/Creatinine Ratio (6-22) (units unknown) (unknown) (unknown) (no date) (unknown) (unknown) BUN/Creatinine Ratio 17.2 (6-22) (units unknown) (unknown) (unknown) (no date) (unknown) (unknown) Baso # (Auto) (0-100 ) /uL (units unknown) (unknown) (unknown) (no date) (unknown) (unknown) Baso # (Auto) 100 (0-100) /uL (units unknown) (unknown) (unknown) (no date) (unknown) (unknown) Baso % (Auto) (0-2) % (units unknown) (unknown) (unknown) (no date) (unknown) (unknown) Baso % (Auto) 1.9 (0-2) % (units unknown) (unknown) (unknown) (no date) (unknown) (unknown) Bedside Urine Bilirubin - Negative (units unknown) (unknown) (unknown) (no date) (unknown) (unknown) Bedside Urine Glucos e Negative (units unknown) (unknown) (unknown) (no date) (unknown) (unknown) Bedside Urine Ketone - Negative (units unknown) (unknown) (unknown) (no date) (unknown) (unknown) Bedside Urine Leukocytes + 70 (units unknown) (unknown) (unknown) (no date) (unknown) (unknown) Bedside Urine Nitrit e - Negative (units unknown) (unknown) (unknown) (no date) (unknown) (unknown) Bedside Urine Occult Blood - Negative (units unknown) (unknown) (unknown) (no date) (unknown) (unknown) Bedside Urine Protei n + 30 (units unknown) (unknown) (unknown) (no date) (unknown) (unknown) Bedside Urine Urobilinogen +/- 1mg (units unknown) (unknown) (unknown) (no date) (unknown) (unknown) Bedside Urine pH 6.0 (units unknown) (unknown) (unknown) (no date) (unknown) (unknown) Blood Pressure 140/6 3 04/20/23 21:09 (units unknown) (unknown) (unknown) (no date) (unknown) (unknown) Blood Pressure 140/6 3 140/63 (units unknown) (unknown) (unknown) (no date) (unknown) (unknown) Body wall:? Unremarkable (units unknown) (unknown) (unknown) (no date) (unknown) (unknown) Bones:? No acute or suspicious osseous finding. (units unknown) (unknown) (unknown) (no date) (unknown) (unknown) Bowel and peritoneum:? No evidence of small bowel obstruction.? There are (units unknown) (unknown) (unknown) (no date) (unknown) (unknown) Breast cancer (units unknown) (unknown) (unknown) (no date) (unknown) (unknown) CAD (coronary artery disease) (units unknown) (unknown) (unknown) (no date) (unknown) (unknown) CARDIOVASCULAR: Regular rate and rhythm without murmurs, rubs or gallops. (units unknown) (unknown) (unknown) (no date) (unknown) (unknown) CBC Auto Diff [Complete Blood Count AUTO DIFF] Stat (units unknown) (unknown) (unknown) (no date) (unknown) (unknown) CMP [Comprehensive Metabolic Panel] Stat (units unknown) (unknown) (unknown) (no date) (unknown) (unknown) COMPARISON:? [facility], MR, MR ABDOMEN MRCP, 06/12/2022, 10:50.? (units unknown) (unknown) (unknown) (no date) (unknown) (unknown) CT abdomen pelvis wo con Stat (units unknown) (unknown) (unknown) (no date) (unknown) (unknown) CT scan - abdomen/pelvis: (units unknown) (unknown) (unknown) (no date) (unknown) (unknown) Calcium (8.4-10.2) mg/dL (units unknown) (unknown) (unknown) (no date) (unknown) (unknown) Calcium 8.3 L (8.4-10.2) mg/dL (units unknown) (unknown) (unknown) (no date) (unknown) (unknown) Carbon Dioxide (22-32) mmol/L (units unknown) (unknown) (unknown) (no date) (unknown) (unknown) Carbon Dioxide 27 (22-32) mmol/L (units unknown) (unknown) (unknown) (no date) (unknown) (unknown) Chief Complaint: Abdominal Pain (units unknown) (unknown) (unknown) (no date) (unknown) (unknown) Chloride (98-107) mmol/L (units unknown) (unknown) (unknown) (no date) (unknown) (unknown) Chloride 103 (98-107 ) mmol/L (units unknown) (unknown) (unknown) (no date) (unknown) (unknown) Consider CT IVP and possible cystoscopy for further workup of hematuria.? (units unknown) (unknown) (unknown) (no date) (unknown) (unknown) Consider ultrasound correlation if needed to further workup pelvic organs.? (units unknown) (unknown) (unknown) (no date) (unknown) (unknown) Contract void and provider will offer no further tramadol refills if tramadol (units unknown) (unknown) (unknown) (no date) (unknown) (unknown) Course (units unknown) (unknown) (unknown) (no date) (unknown) (unknown) Creatinine (0.52-1.04) mg/dL (units unknown) (unknown) (unknown) (no date) (unknown) (unknown) Creatinine 0.87 (0.52-1.04) mg/dL (units unknown) (unknown) (unknown) (no date) (unknown) (unknown) : 1995 Acct:[id number] (units unknown) (unknown) (unknown) (no date) (unknown) (unknown) Date of Service: 11/15/22 (units unknown) (unknown) (unknown) (no date) (unknown) (unknown) Departure (units unknown) (unknown) (unknown) (no date) (unknown) (unknown) Dictated by: Alna Castaneda M.D. on 11/15/2022 at 22:28 ?? (units unknown) (unknown) (unknown) (no date) (unknown) (unknown) Diphenhydramine HCl (Diphenhydramine 50 Mg/Ml Vial) 25 mg IV NOW ONE (units unknown) (unknown) (unknown) (no date) (unknown) (unknown) Discharge Plan (units unknown) (unknown) (unknown) (no date) (unknown) (unknown) Discontinued Medications (units unknown) (unknown) (unknown) (no date) (unknown) (unknown) Documented By: BS (units unknown) (unknown) (unknown) (no date) (unknown) (unknown) Documented By: SPF (units unknown) (unknown) (unknown) (no date) (unknown) (unknown) Dose Instruction: (units unknown) (unknown) (unknown) (no date) (unknown) (unknown) ED Orders (units unknown) (unknown) (unknown) (no date) (unknown) (unknown) ER Physician: Stephie Escalante D.O. (units unknown) (unknown) (unknown) (no date) (unknown) (unknown) EXTREMITIES: Normal range of motion, no clubbing or edema. Neurovascularly (units unknown) (unknown) (unknown) (no date) (unknown) (unknown) Emergency Report (units unknown) (unknown) (unknown) (no date) (unknown) (unknown) Endometriosis (units unknown) (unknown) (unknown) (no date) (unknown) (unknown) Eos # (Auto) (0-450) /uL (units unknown) (unknown) (unknown) (no date) (unknown) (unknown) Eos # (Auto) 100 (0-450) /uL (units unknown) (unknown) (unknown) (no date) (unknown) (unknown) Eos % (Auto) (2-4) % (units unknown) (unknown) (unknown) (no date) (unknown) (unknown) Eos % (Auto) 2.0 (2-4) % (units unknown) (unknown) (unknown) (no date) (unknown) (unknown) Esterase (units unknown) (unknown) (unknown) (no date) (unknown) (unknown) Estimated GFR > 60 (>60) mL/min (units unknown) (unknown) (unknown) (no date) (unknown) (unknown) Estimated GFR (>60) mL/min (units unknown) (unknown) (unknown) (no date) (unknown) (unknown) Exam (units unknown) (unknown) (unknown) (no date) (unknown) (unknown) FINDINGS:? (units unknown) (unknown) (unknown) (no date) (unknown) (unknown) Family History (units unknown) (unknown) (unknown) (no date) (unknown) (unknown) GENERAL: Alert pleasant well-appearing 27-year-old female and in no acute (units unknown) (unknown) (unknown) (no date) (unknown) (unknown) : No CVA tenderness (units unknown) (unknown) (unknown) (no date) (unknown) (unknown) General (units unknown) (unknown) (unknown) (no date) (unknown) (unknown) Globulin (1.7-4.1) g/dL (units unknown) (unknown) (unknown) (no date) (unknown) (unknown) Globulin 2.5 (1.7-4.1) g/dL (units unknown) (unknown) (unknown) (no date) (unknown) (unknown) Glucose (70-100) mg/dL (units unknown) (unknown) (unknown) (no date) (unknown) (unknown) Glucose 96 (70-100) mg/dL (units unknown) (unknown) (unknown) (no date) (unknown) (unknown) Grandmother Ovarian cancer (units unknown) (unknown) (unknown) (no date) (unknown) (unknown) H/O unilateral oophorectomy () (units unknown) (unknown) (unknown) (no date) (unknown) (unknown) H/O: hysterectomy (units unknown) (unknown) (unknown) (no date) (unknown) (unknown) HEENT: Head atraumatic,EOMI, pupils reactive, face symmetric, moist mucous (units unknown) (unknown) (unknown) (no date) (unknown) (unknown) HPI - Abdominal Pain (units unknown) (unknown) (unknown) (no date) (unknown) (unknown) HPI narrative: (units unknown) (unknown) (unknown) (no date) (unknown) (unknown) Hct (36-46) % (units unknown) (unknown) (unknown) (no date) (unknown) (unknown) Hct 35.8 L (36-46) % (units unknown) (unknown) (unknown) (no date) (unknown) (unknown) Hematuria (units unknown) (unknown) (unknown) (no date) (unknown) (unknown) Hgb (12.0-16.0) g/dL (units unknown) (unknown) (unknown) (no date) (unknown) (unknown) Hgb 12.6 (12.0-16.0) g/dL (units unknown) (unknown) (unknown) (no date) (unknown) (unknown) History of Present Illness (units unknown) (unknown) (unknown) (no date) (unknown) (unknown) History of ureter stent (units unknown) (unknown) (unknown) (no date) (unknown) (unknown) Hold Instructions: NEEDS TO SEE NEUROLOGY (units unknown) (unknown) (unknown) (no date) (unknown) (unknown) Hold Instructions: SEEN BY PSYCHIATRY (units unknown) (unknown) (unknown) (no date) (unknown) (unknown) Home Medications (units unknown) (unknown) (unknown) (no date) (unknown) (unknown) Hydromorphone HCl (Hydromorphone 1 Mg Inj) 1 mg IV NOW ONE (units unknown) (unknown) (unknown) (no date) (unknown) (unknown) Hyperlipidemia (units unknown) (unknown) (unknown) (no date) (unknown) (unknown) Hypertension (units unknown) (unknown) (unknown) (no date) (unknown) (unknown) Hysterectomy. (units unknown) (unknown) (unknown) (no date) (unknown) (unknown) IMPRESSION:? No acut e abdominal pelvic pathology.? No calcified renal stones.? (units unknown) (unknown) (unknown) (no date) (unknown) (unknown) INDICATIONS:? Left lower quadrant pain, hematuria (units unknown) (unknown) (unknown) (no date) (unknown) (unknown) INJECT INTRAMUSCULARLY EVERY 20 MINUTES NEEDED FOR ANAPHYLAXIS UNTIL (units unknown) (unknown) (unknown) (no date) (unknown) (unknown) IV DYE] (units unknown) (unknown) (unknown) (no date) (unknown) (unknown) Image quality:? Good (units unknown) (unknown) (unknown) (no date) (unknown) (unknown) Imaging Data (units unknown) (unknown) (unknown) (no date) (unknown) (unknown) Initial Vital Signs (units unknown) (unknown) (unknown) (no date) (unknown) (unknown) Initial Vital Signs: (units unknown) (unknown) (unknown) (no date) (unknown) (unknown) Iodinated Contrast Media Allergy Unknown Verified 04/22/22 14:44 (units unknown) (unknown) (unknown) (no date) (unknown) (unknown) [address] [address] (units unknown) (unknown) (unknown) (no date) (unknown) (unknown) Lab Data (units unknown) (unknown) (unknown) (no date) (unknown) (unknown) Lab Results (units unknown) (unknown) (unknown) (no date) (unknown) (unknown) Labs: (units unknown) (unknown) (unknown) (no date) (unknown) (unknown) Lactate (0.7-2.1) mmol/L (units unknown) (unknown) (unknown) (no date) (unknown) (unknown) Lactate (Lactic Acid ) Stat (units unknown) (unknown) (unknown) (no date) (unknown) (unknown) Lactate 1.2 (0.7-2.1 ) mmol/L (units unknown) (unknown) (unknown) (no date) (unknown) (unknown) Last Admin: 11/15/22 22:00 Dose: 10 mg (units unknown) (unknown) (unknown) (no date) (unknown) (unknown) Last Admin: 11/15/22 22:01 Dose: 40 mg (units unknown) (unknown) (unknown) (no date) (unknown) (unknown) Last Admin: 11/15/22 22:21 Dose: Not Given (units unknown) (unknown) (unknown) (no date) (unknown) (unknown) Last Admin: 11/15/22 23:01 Dose: 1 mg (units unknown) (unknown) (unknown) (no date) (unknown) (unknown) Last Infusion: 11/15/22 23:34 Dose: 0 mls/hr (units unknown) (unknown) (unknown) (no date) (unknown) (unknown) Limit as possible. Prescribed per 03/21 signed pain management contract. (units unknown) (unknown) (unknown) (no date) (unknown) (unknown) Lipase (23-300) U/L (units unknown) (unknown) (unknown) (no date) (unknown) (unknown) Lipase 86 (23-300) U/L (units unknown) (unknown) (unknown) (no date) (unknown) (unknown) Lipase Stat (units unknown) (unknown) (unknown) (no date) (unknown) (unknown) Lower chest:? Unremarkable.? No hiatal hernia. (units unknown) (unknown) (unknown) (no date) (unknown) (unknown) Lymph # (Auto) (1445-4104) /uL (units unknown) (unknown) (unknown) (no date) (unknown) (unknown) Lymph # (Auto) 2200 (3004-8932) /uL (units unknown) (unknown) (unknown) (no date) (unknown) (unknown) Lymph % (Auto) (25-40) % (units unknown) (unknown) (unknown) (no date) (unknown) (unknown) Lymph % (Auto) 34.4 (25-40) % (units unknown) (unknown) (unknown) (no date) (unknown) (unknown) MCH (26-34) PG (units unknown) (unknown) (unknown) (no date) (unknown) (unknown) MCH 31.2 (26-34) PG (units unknown) (unknown) (unknown) (no date) (unknown) (unknown) MCHC (30-36) % (units unknown) (unknown) (unknown) (no date) (unknown) (unknown) MCHC 35.3 (30-36) % (units unknown) (unknown) (unknown) (no date) (unknown) (unknown) MCV (80-100) fL (units unknown) (unknown) (unknown) (no date) (unknown) (unknown) MCV 88.6 (80-100) fL (units unknown) (unknown) (unknown) (no date) (unknown) (unknown) MDM - Abdominal Pain (units unknown) (unknown) (unknown) (no date) (unknown) (unknown) Major depressive disorder (units unknown) (unknown) (unknown) (no date) (unknown) (unknown) Medical History (units unknown) (unknown) (unknown) (no date) (unknown) (unknown) Medication Instructions Recorded Confirmed (units unknown) (unknown) (unknown) (no date) (unknown) (unknown) Medication Instructions Recorded (units unknown) (unknown) (unknown) (no date) (unknown) (unknown) Methylprednisolone (Methylprednisolone 125 Mg/2 Ml Vial) 125 mg IV NOW ONE (units unknown) (unknown) (unknown) (no date) (unknown) (unknown) [place] # (Auto) (0-900 ) /uL (units unknown) (unknown) (unknown) (no date) (unknown) (unknown) [place] # (Auto) 400 (0-900) /uL (units unknown) (unknown) (unknown) (no date) (unknown) (unknown) [place] % (Auto) (3-14) % (units unknown) (unknown) (unknown) (no date) (unknown) (unknown) [place] % (Auto) 6.9 (3-14) % (units unknown) (unknown) (unknown) (no date) (unknown) (unknown) Morbid obesity (units unknown) (unknown) (unknown) (no date) (unknown) (unknown) Mother BRCA positive (units unknown) (unknown) (unknown) (no date) (unknown) (unknown) NEUROLOGICAL: Alert and oriented x4.Normal gait and speech. (units unknown) (unknown) (unknown) (no date) (unknown) (unknown) Nephrolithiasis (-2017) (units unknown) (unknown) (unknown) (no date) (unknown) (unknown) Neut # (Auto) (1655-0999) /uL (units unknown) (unknown) (unknown) (no date) (unknown) (unknown) Neut # (Auto) 3500 (8806-7926) /uL (units unknown) (unknown) (unknown) (no date) (unknown) (unknown) Neut % (Auto) (50-75 ) % (units unknown) (unknown) (unknown) (no date) (unknown) (unknown) Neut % (Auto) 54.8 (50-75) % (units unknown) (unknown) (unknown) (no date) (unknown) (unknown) No Action (units unknown) (unknown) (unknown) (no date) (unknown) (unknown) No hydronephrosis.? No calcified stones.? As before, minimally hyperattenuating (units unknown) (unknown) (unknown) (no date) (unknown) (unknown) No (units unknown) (unknown) (unknown) (no date) (unknown) (unknown) Noncontrast 5 mm thick sections acquired from the diaphragms to the symphysis.? (units unknown) (unknown) (unknown) (no date) (unknown) (unknown) Ordered: (units unknown) (unknown) (unknown) (no date) (unknown) (unknown) Orders (units unknown) (unknown) (unknown) (no date) (unknown) (unknown) Ovarian cyst (units unknown) (unknown) (unknown) (no date) (unknown) (unknown) Oxygen Delivery Method Room Air 11/15/22 21:09 (units unknown) (unknown) (unknown) (no date) (unknown) (unknown) Oxygen Delivery Method Room Air (units unknown) (unknown) (unknown) (no date) (unknown) (unknown) PCOS (polycystic ovarian syndrome) (units unknown) (unknown) (unknown) (no date) (unknown) (unknown) PROCEDURE:? CT ABDOMEN PELVIS WO CON (units unknown) (unknown) (unknown) (no date) (unknown) (unknown) Pantoprazole Sodium (Pantoprazole 40 Mg Vial) 40 mg IV NOW ONE (units unknown) (unknown) (unknown) (no date) (unknown) (unknown) Patellar dislocation (units unknown) (unknown) (unknown) (no date) (unknown) (unknown) Patient 27-year-old female with significant history of anxiety, psychogenic (units unknown) (unknown) (unknown) (no date) (unknown) (unknown) Patient History (units unknown) (unknown) (unknown) (no date) (unknown) (unknown) Patient: Calin Jorgensen MR# (units unknown) (unknown) (unknown) (no date) (unknown) (unknown) Pelvic congestion (2013) (units unknown) (unknown) (unknown) (no date) (unknown) (unknown) Pelvis:? Bladder is underdistended which limits evaluation.? Hysterectomy.? (units unknown) (unknown) (unknown) (no date) (unknown) (unknown) Penicillins [PENICILLINS] Allergy Mild Verified 04/22/22 14:44 (units unknown) (unknown) (unknown) (no date) (unknown) (unknown) Plt Count (150-400) X103/uL (units unknown) (unknown) (unknown) (no date) (unknown) (unknown) Plt Count 245 (150-400) X103/uL (units unknown) (unknown) (unknown) (no date) (unknown) (unknown) Point of Care Testing (units unknown) (unknown) (unknown) (no date) (unknown) (unknown) Point of care testing: (units unknown) (unknown) (unknown) (no date) (unknown) (unknown) Potassium (3.4-5.1) mmol/L (units unknown) (unknown) (unknown) (no date) (unknown) (unknown) Potassium 3.6 (3.4-5.1) mmol/L (units unknown) (unknown) (unknown) (no date) (unknown) (unknown) Test Results Negative (units unknown) (unknown) (unknown) (no date) (unknown) (unknown) Prescriptions: (units unknown) (unknown) (unknown) (no date) (unknown) (unknown) Previous Rx's (units unknown) (unknown) (unknown) (no date) (unknown) (unknown) Procalcitonin < 0.03 (<0.5) ng/mL (units unknown) (unknown) (unknown) (no date) (unknown) (unknown) Procalcitonin (<0.5) ng/mL (units unknown) (unknown) (unknown) (no date) (unknown) (unknown) Procalcitonin Stat (units unknown) (unknown) (unknown) (no date) (unknown) (unknown) Prochlorperazine (Prochlorperazine 10 Mg/2 Ml Vial) 10 mg IV NOW ONE (units unknown) (unknown) (unknown) (no date) (unknown) (unknown) Prominent (units unknown) (unknown) (unknown) (no date) (unknown) (unknown) Psychogenic nonepileptic seizure (units unknown) (unknown) (unknown) (no date) (unknown) (unknown) Pulse Oximetry 97 11/15/22 21:09 (units unknown) (unknown) (unknown) (no date) (unknown) (unknown) Pulse Oximetry 97 (units unknown) (unknown) (unknown) (no date) (unknown) (unknown) Pulse Rate 78 11/15/22 21:09 (units unknown) (unknown) (unknown) (no date) (unknown) (unknown) Pulse Rate 78 60 (units unknown) (unknown) (unknown) (no date) (unknown) (unknown) RBC (4.0-5.2) X106/uL (units unknown) (unknown) (unknown) (no date) (unknown) (unknown) RBC 4.04 (4.0-5.2) X106/uL (units unknown) (unknown) (unknown) (no date) (unknown) (unknown) RDW (11.6-14.8) % (units unknown) (unknown) (unknown) (no date) (unknown) (unknown) RDW 12.7 (11.6-14.8) % (units unknown) (unknown) (unknown) (no date) (unknown) (unknown) RESPIRATORY: Breath sounds equal bilaterally, no wheezes rales or rhonchi. (units unknown) (unknown) (unknown) (no date) (unknown) (unknown) RESPONSE (units unknown) (unknown) (unknown) (no date) (unknown) (unknown) Radiologist's Impression: (units unknown) (unknown) (unknown) (no date) (unknown) (unknown) Referrals: (units unknown) (unknown) (unknown) (no date) (unknown) (unknown) Related Data (units unknown) (unknown) (unknown) (no date) (unknown) (unknown) Respiratory Rate 16 11/15/22 21:09 (units unknown) (unknown) (unknown) (no date) (unknown) (unknown) Respiratory Rate 16 (units unknown) (unknown) (unknown) (no date) (unknown) (unknown) Rx Instructions: (units unknown) (unknown) (unknown) (no date) (unknown) (unknown) SKIN: Warm, dry, no laceration, no petechiae, no rashes or lesions. (units unknown) (unknown) (unknown) (no date) (unknown) (unknown) See Rx Instructions .ROUTE .COMPLEX Qty: 180 0RF (units unknown) (unknown) (unknown) (no date) (unknown) (unknown) See Rx Instructions .ROUTE .COMPLEX Qty: 2 0RF (units unknown) (unknown) (unknown) (no date) (unknown) (unknown) See Rx Instructions PO BEDTIME Qty: 45 2RF (units unknown) (unknown) (unknown) (no date) (unknown) (unknown) Signed By: (units unknown) (unknown) (unknown) (no date) (unknown) (unknown) [facility] recently for an EGD which she was found to have erosive (units unknown) (unknown) (unknown) (no date) (unknown) (unknown) [facility] (units unknown) (unknown) (unknown) (no date) (unknown) (unknown) Smoking Status: Current every day smoker (units unknown) (unknown) (unknown) (no date) (unknown) (unknown) Social History (units unknown) (unknown) (unknown) (no date) (unknown) (unknown) Sodium (137-145) mmol/L (units unknown) (unknown) (unknown) (no date) (unknown) (unknown) Sodium 136 L (137-145) mmol/L (units unknown) (unknown) (unknown) (no date) (unknown) (unknown) Sodium Chloride (Normal Saline 0.9%) 1,000 mls @ 1,000 mls/hr IV BOLUS ONE (units unknown) (unknown) (unknown) (no date) (unknown) (unknown) Solid organs:? Liver is unremarkable.? Gallbladder is absent.? No pathologic (units unknown) (unknown) (unknown) (no date) (unknown) (unknown) Stated Complaint: abdominal pain, vomiting blood (units unknown) (unknown) (unknown) (no date) (unknown) (unknown) Status post appendectomy (2003) (units unknown) (unknown) (unknown) (no date) (unknown) (unknown) Status post bilatera l salpingectomy (10/21/17) (units unknown) (unknown) (unknown) (no date) (unknown) (unknown) Status post dilation and curettage (2010) (units unknown) (unknown) (unknown) (no date) (unknown) (unknown) Status post dilation and curettage (2011) (units unknown) (unknown) (unknown) (no date) (unknown) (unknown) Status post knee surgery (2007) (units unknown) (unknown) (unknown) (no date) (unknown) (unknown) Status post knee surgery (2012) (units unknown) (unknown) (unknown) (no date) (unknown) (unknown) Status post laparoscopic supracervical hysterectomy (10/21/17) (units unknown) (unknown) (unknown) (no date) (unknown) (unknown) Status post laparoscopy () (units unknown) (unknown) (unknown) (no date) (unknown) (unknown) Status post laparoscopy (2003) (units unknown) (unknown) (unknown) (no date) (unknown) (unknown) Status post laparoscopy (2004) (units unknown) (unknown) (unknown) (no date) (unknown) (unknown) Status post laparoscopy (2011) (units unknown) (unknown) (unknown) (no date) (unknown) (unknown) Status post removal of cervix (units unknown) (unknown) (unknown) (no date) (unknown) (unknown) Status post tonsillectomy and adenoidectomy (units unknown) (unknown) (unknown) (no date) (unknown) (unknown) Stop: 11/15/22 21:42 (units unknown) (unknown) (unknown) (no date) (unknown) (unknown) Stop: 11/15/22 22:03 (units unknown) (unknown) (unknown) (no date) (unknown) (unknown) Stop: 11/15/22 22:12 (units unknown) (unknown) (unknown) (no date) (unknown) (unknown) Stop: 11/15/22 22:51 (units unknown) (unknown) (unknown) (no date) (unknown) (unknown) Substance Use Type: does not use (units unknown) (unknown) (unknown) (no date) (unknown) (unknown) Surgical History (units unknown) (unknown) (unknown) (no date) (unknown) (unknown) TAKE 2 TABLETS BY MOUTH AT BEDTIME NEEDED FOR INSOMNIA (units unknown) (unknown) (unknown) (no date) (unknown) (unknown) TECHNIQUE:? (units unknown) (unknown) (unknown) (no date) (unknown) (unknown) Take 1 tab p.o. at HS. May take 1/2 tab p.o. during the day for anxiety (units unknown) (unknown) (unknown) (no date) (unknown) (unknown) Temperature 97.6 F 11/15/22 21:09 (units unknown) (unknown) (unknown) (no date) (unknown) (unknown) Temperature 97.6 F (units unknown) (unknown) (unknown) (no date) (unknown) (unknown) Time Seen by Provider: 11/15/22 21:09 (units unknown) (unknown) (unknown) (no date) (unknown) (unknown) Total Bilirubin (0.2-1.3) mg/dL (units unknown) (unknown) (unknown) (no date) (unknown) (unknown) Total Bilirubin 0.5 (0.2-1.3) mg/dL (units unknown) (unknown) (unknown) (no date) (unknown) (unknown) Total Protein (6.3-8.2) g/dL (units unknown) (unknown) (unknown) (no date) (unknown) (unknown) Total Protein 6.4 (6.3-8.2) g/dL (units unknown) (unknown) (unknown) (no date) (unknown) (unknown) UA Complete [Urinalysis and Microscopic] Stat (units unknown) (unknown) (unknown) (no date) (unknown) (unknown) Ur Culture Indicated ? Specimen cultured (units unknown) (unknown) (unknown) (no date) (unknown) (unknown) Ur Culture Indicated? (units unknown) (unknown) (unknown) (no date) (unknown) (unknown) Ur Leukocyte Esteras e (NEGATIVE) (units unknown) (unknown) (unknown) (no date) (unknown) (unknown) Ur Leukocyte [place] e 1+ H (NEGATIVE) (units unknown) (unknown) (unknown) (no date) (unknown) (unknown) Ur Specific [place] (1.000-1.035) (units unknown) (unknown) (unknown) (no date) (unknown) (unknown) Ur Specific [place] 1.025 (1.000-1.035) (units unknown) (unknown) (unknown) (no date) (unknown) (unknown) Ur Squamous Epith Cells (0-5/HPF) (units unknown) (unknown) (unknown) (no date) (unknown) (unknown) Ur Squamous Epith Cells 1-5 /hpf D (0-5/HPF) (units unknown) (unknown) (unknown) (no date) (unknown) (unknown) Urine Appearance Cloudy (units unknown) (unknown) (unknown) (no date) (unknown) (unknown) Urine Appearance (units unknown) (unknown) (unknown) (no date) (unknown) (unknown) Urine Bacteria (None) (units unknown) (unknown) (unknown) (no date) (unknown) (unknown) Urine Bacteria Occasional (0-1) (None) (units unknown) (unknown) (unknown) (no date) (unknown) (unknown) Urine Bilirubin (NEGATIVE) (units unknown) (unknown) (unknown) (no date) (unknown) (unknown) Urine Bilirubin Negative (NEGATIVE) (units unknown) (unknown) (unknown) (no date) (unknown) (unknown) Urine Color Red (units unknown) (unknown) (unknown) (no date) (unknown) (unknown) Urine Color (units unknown) (unknown) (unknown) (no date) (unknown) (unknown) Urine Culture Stat (units unknown) (unknown) (unknown) (no date) (unknown) (unknown) Urine Dip (units unknown) (unknown) (unknown) (no date) (unknown) (unknown) Urine Glucose (UA) (Negative) g/dL (units unknown) (unknown) (unknown) (no date) (unknown) (unknown) Urine Glucose (UA) Negative (Negative) g/dL (units unknown) (unknown) (unknown) (no date) (unknown) (unknown) Urine Ketones (NEGATIVE) (units unknown) (unknown) (unknown) (no date) (unknown) (unknown) Urine Ketones Negative (NEGATIVE) (units unknown) (unknown) (unknown) (no date) (unknown) (unknown) Urine Nitrate (Negative) (units unknown) (unknown) (unknown) (no date) (unknown) (unknown) Urine Nitrate Negative (Negative) (units unknown) (unknown) (unknown) (no date) (unknown) (unknown) Urine Occult Blood (Negative) (units unknown) (unknown) (unknown) (no date) (unknown) (unknown) Urine Occult Blood 3 + H (Negative) (units unknown) (unknown) (unknown) (no date) (unknown) (unknown) Urine Protein (Negative) (units unknown) (unknown) (unknown) (no date) (unknown) (unknown) Urine Protein 1+ H (Negative) (units unknown) (unknown) (unknown) (no date) (unknown) (unknown) Urine RBC >100/hpf H (0-5/HPF) (units unknown) (unknown) (unknown) (no date) (unknown) (unknown) Urine RBC (0-5/HPF) (units unknown) (unknown) (unknown) (no date) (unknown) (unknown) Urine Specific [place] 1.020 (units unknown) (unknown) (unknown) (no date) (unknown) (unknown) Urine Urobilinogen (0.2) E.U./dL (units unknown) (unknown) (unknown) (no date) (unknown) (unknown) Urine Urobilinogen 1.0 (0.2) E.U./dL (units unknown) (unknown) (unknown) (no date) (unknown) (unknown) Urine WBC (0-5/HPF) (units unknown) (unknown) (unknown) (no date) (unknown) (unknown) Urine WBC 1-5/hpf (0-5/HPF) (units unknown) (unknown) (unknown) (no date) (unknown) (unknown) Urine pH (4.5-8.0) (units unknown) (unknown) (unknown) (no date) (unknown) (unknown) Urine pH 6.5 (4.5-8.0) (units unknown) (unknown) (unknown) (no date) (unknown) (unknown) [facility], CT, CT ABDOMEN PELVIS WITHOUT CONTRAST, 06/11/2022, 19:33.? (units unknown) (unknown) (unknown) (no date) (unknown) (unknown) [facility], MR, MR ABDOMEN MRCP, 06/12/2022, 10:50. (units unknown) (unknown) (unknown) (no date) (unknown) (unknown) Vessels and lymph nodes:? No abdominal aortic aneurysm or pathologic adenopathy (units unknown) (unknown) (unknown) (no date) (unknown) (unknown) Vital Signs - 8 hr (units unknown) (unknown) (unknown) (no date) (unknown) (unknown) Vital Signs (units unknown) (unknown) (unknown) (no date) (unknown) (unknown) Vital signs: (units unknown) (unknown) (unknown) (no date) (unknown) (unknown) WBC (4.5-11.0) X103/uL (units unknown) (unknown) (unknown) (no date) (unknown) (unknown) WBC 6.4 (4.5-11.0) X103/uL (units unknown) (unknown) (unknown) (no date) (unknown) (unknown) Christi Johnson , JORDAN, INFLATABLE BUILDINGS LAMINATOR [Primary Care Provider] (units unknown) (unknown) (unknown) (no date) (unknown) (unknown) [Embedded Image Not Available] (units unknown) (unknown) (unknown) (no date) (unknown) (unknown) [From BACTRIM] (units unknown) (unknown) (unknown) (no date) (unknown) (unknown) [IODINATED CONTRAST MEDIA (units unknown) (unknown) (unknown) (no date) (unknown) (unknown) [METOCLOPRAMIDE] (units unknown) (unknown) (unknown) (no date) (unknown) (unknown) [SHELLFISH DERIVED] (units unknown) (unknown) (unknown) (no date) (unknown) (unknown) about 14 (units unknown) (unknown) (unknown) (no date) (unknown) (unknown) according to (units unknown) (unknown) (unknown) (no date) (unknown) (unknown) actually was seen evaluated by her primary care provider yesterday she was (units unknown) (unknown) (unknown) (no date) (unknown) (unknown) adhesive [ADHESIVE] Allergy Mild Verified 04/22/22 14:44 (units unknown) (unknown) (unknown) (no date) (unknown) (unknown) alcohol intake frequency: holidays/special occasions only (units unknown) (unknown) (unknown) (no date) (unknown) (unknown) amoxicillin [AMOXICILLIN] Allergy Mild Verified 04/22/22 14:44 (units unknown) (unknown) (unknown) (no date) (unknown) (unknown) appearance of the renal pyramids bilaterally. (units unknown) (unknown) (unknown) (no date) (unknown) (unknown) apply to single elbow, wrist or hand; for hand includes palm/fingers/back of (units unknown) (unknown) (unknown) (no date) (unknown) (unknown) by size (units unknown) (unknown) (unknown) (no date) (unknown) (unknown) cephalexin [CEPHALEXIN] Allergy Unknown Verified 04/22/22 14:44 (units unknown) (unknown) (unknown) (no date) (unknown) (unknown) chills. No flank pain. He is had multiple CTs previously. She was admitted at (units unknown) (unknown) (unknown) (no date) (unknown) (unknown) ciprofloxacin [CIPROFLOXACIN] Allergy Unknown Verified 04/22/22 14:44 (units unknown) (unknown) (unknown) (no date) (unknown) (unknown) clindamycin [CLINDAMYCIN] Allergy Unknown Verified 04/22/22 14:44 (units unknown) (unknown) (unknown) (no date) (unknown) (unknown) cm.? No adrenal nodules.? (units unknown) (unknown) (unknown) (no date) (unknown) (unknown) colonic (units unknown) (unknown) (unknown) (no date) (unknown) (unknown) coronal and sagittal reformats were then performed.? For radiation dose (units unknown) (unknown) (unknown) (no date) (unknown) (unknown) criteria. (units unknown) (unknown) (unknown) (no date) (unknown) (unknown) diazepam 10 mg table t 10 mg PO QID #120 tabs 10/12/21 (units unknown) (unknown) (unknown) (no date) (unknown) (unknown) diazepam 10 mg tablet (units unknown) (unknown) (unknown) (no date) (unknown) (unknown) diazepam 5 mg tablet (Valium) 5 mg PO TID PRN muscle spasm #10 10/19/21 (units unknown) (unknown) (unknown) (no date) (unknown) (unknown) diazepam [Valium] 5 mg tablet (units unknown) (unknown) (unknown) (no date) (unknown) (unknown) diclofenac sodium 1 % gel (units unknown) (unknown) (unknown) (no date) (unknown) (unknown) diclofenac sodium 1 % topical gel 2 g topical QID #100 grams 05/05/22 (units unknown) (unknown) (unknown) (no date) (unknown) (unknown) dilation of (units unknown) (unknown) (unknown) (no date) (unknown) (unknown) distress. (units unknown) (unknown) (unknown) (no date) (unknown) (unknown) diverticula.? No abscess or pathologic ascites. (units unknown) (unknown) (unknown) (no date) (unknown) (unknown) doxycycline [DOXYCYCLINE] Allergy Mild Verified 04/22/22 14:44 (units unknown) (unknown) (unknown) (no date) (unknown) (unknown) epinephrine 0.3 mg/0.3 mL See Rx Instructions .Route 02/27/22 (units unknown) (unknown) (unknown) (no date) (unknown) (unknown) epinephrine 0.3 mg/0.3 mL auto-injector (units unknown) (unknown) (unknown) (no date) (unknown) (unknown) evaluated on CT, consider ultrasound correlation if needed. (units unknown) (unknown) (unknown) (no date) (unknown) (unknown) following was used:? automated exposure control, adjustment of mA and/or kV (units unknown) (unknown) (unknown) (no date) (unknown) (unknown) gastritis. She can not have NSAIDs. She is taking oxycodone. (units unknown) (unknown) (unknown) (no date) (unknown) (unknown) hand (units unknown) (unknown) (unknown) (no date) (unknown) (unknown) having galactorrhea which started 2 days ago. She says this is persisting. She (units unknown) (unknown) (unknown) (no date) (unknown) (unknown) household members: spouse and children (units unknown) (unknown) (unknown) (no date) (unknown) (unknown) hydrocodone Allergy Mild rash Verified 04/22/22 14:44 (units unknown) (unknown) (unknown) (no date) (unknown) (unknown) hydronephrosis.? Nonspecific trace hyperattenuating appearance of the renal (units unknown) (unknown) (unknown) (no date) (unknown) (unknown) injection, auto-injector .COMPLEX #2 ea (units unknown) (unknown) (unknown) (no date) (unknown) (unknown) intact (units unknown) (unknown) (unknown) (no date) (unknown) (unknown) iodine [IODINE] Allergy Mild Verified 04/22/22 14:44 (units unknown) (unknown) (unknown) (no date) (unknown) (unknown) is metoclopramide Phenergan and oxycodone all which increase and (units unknown) (unknown) (unknown) (no date) (unknown) (unknown) lamotrigine 200 mg tablet 200 mg PO DAILY #30 tabs 01/18/22 (units unknown) (unknown) (unknown) (no date) (unknown) (unknown) lamotrigine 200 mg tablet (units unknown) (unknown) (unknown) (no date) (unknown) (unknown) latex [LATEX] Allerg y Unknown Verified 04/22/22 14:44 (units unknown) (unknown) (unknown) (no date) (unknown) (unknown) left ovary, with decreased size of previously seen cyst, reproductive organs are (units unknown) (unknown) (unknown) (no date) (unknown) (unknown) lidocaine AdvReac Palpitation Verified 04/22/22 14:44 (units unknown) (unknown) (unknown) (no date) (unknown) (unknown) lives independently: Yes (units unknown) (unknown) (unknown) (no date) (unknown) (unknown) marital status: (units unknown) (unknown) (unknown) (no date) (unknown) (unknown) membranes (units unknown) (unknown) (unknown) (no date) (unknown) (unknown) metformin 500 mg tablet 500 mg PO BID #60 tabs 02/21/22 (units unknown) (unknown) (unknown) (no date) (unknown) (unknown) metformin 500 mg tablet (units unknown) (unknown) (unknown) (no date) (unknown) (unknown) metoclopramide Allergy Mild Verified 04/22/22 14:44 (units unknown) (unknown) (unknown) (no date) (unknown) (unknown) mg tablet (Percocet) (units unknown) (unknown) (unknown) (no date) (unknown) (unknown) multiple EGDs, e history of vaginal bleeding despite hysterectomy, presents (units unknown) (unknown) (unknown) (no date) (unknown) (unknown) neuroleptic seizures , PTSD depression, erosive gastritis causing hematemesis (units unknown) (unknown) (unknown) (no date) (unknown) (unknown) not well (units unknown) (unknown) (unknown) (no date) (unknown) (unknown) occupational status: employed (units unknown) (unknown) (unknown) (no date) (unknown) (unknown) oxycodone 10 mg tablet 5 mg PO Q6H PRN pain #14 tabs 05/05/22 (units unknown) (unknown) (unknown) (no date) (unknown) (unknown) oxycodone 10 mg tablet (units unknown) (unknown) (unknown) (no date) (unknown) (unknown) oxycodone-acetaminop h en 5 mg-325 1 tab PO Q8H PRN pain #6 tabs 04/22/22 (units unknown) (unknown) (unknown) (no date) (unknown) (unknown) oxycodone-acetaminop h en [Percocet] 5-325 mg tablet (units unknown) (unknown) (unknown) (no date) (unknown) (unknown) patient size.? (units unknown) (unknown) (unknown) (no date) (unknown) (unknown) prolactin levels. Sh e apparently does have vaginal bleeding there is a known (units unknown) (unknown) (unknown) (no date) (unknown) (unknown) pyramids is (units unknown) (unknown) (unknown) (no date) (unknown) (unknown) quetiapine 100 mg tablet 100 mg PO BEDTIME 02/27/22 02/27/22 (units unknown) (unknown) (unknown) (no date) (unknown) (unknown) quetiapine 100 mg tablet (units unknown) (unknown) (unknown) (no date) (unknown) (unknown) quetiapine 25 mg tablet See Rx Instructions PO BEDTIME #45 01/18/22 (units unknown) (unknown) (unknown) (no date) (unknown) (unknown) quetiapine 25 mg tablet (units unknown) (unknown) (unknown) (no date) (unknown) (unknown) received per another provider. (units unknown) (unknown) (unknown) (no date) (unknown) (unknown) reduction, the (units unknown) (unknown) (unknown) (no date) (unknown) (unknown) s (units unknown) (unknown) (unknown) (no date) (unknown) (unknown) sertraline 100 mg tablet 200 mg PO DAILY #60 tabs 01/18/22 (units unknown) (unknown) (unknown) (no date) (unknown) (unknown) sertraline 100 mg tablet (units unknown) (unknown) (unknown) (no date) (unknown) (unknown) shellfish derived Allergy Severe ANAPHYLAXIS Verified 04/22/22 14:44 (units unknown) (unknown) (unknown) (no date) (unknown) (unknown) small opening in the cuff of her hysterectomy as identified her surgeon when she (units unknown) (unknown) (unknown) (no date) (unknown) (unknown) sometimes associated with nephrocalcinosis. (units unknown) (unknown) (unknown) (no date) (unknown) (unknown) started lactating sh e started vaginal bleeding again. She denies fever or (units unknown) (unknown) (unknown) (no date) (unknown) (unknown) sulfamethoxazole Allergy Mild RASH Verified 04/22/22 14:44 (units unknown) (unknown) (unknown) (no date) (unknown) (unknown) tabs (units unknown) (unknown) (unknown) (no date) (unknown) (unknown) the biliary tree or pancreatic duct.? Similar borderline splenomegaly, measuring (units unknown) (unknown) (unknown) (no date) (unknown) (unknown) tobacco type: vaping (units unknown) (unknown) (unknown) (no date) (unknown) (unknown) today with left lowe r quadrant pain nausea vomiting in vaginal bleeding. She (units unknown) (unknown) (unknown) (no date) (unknown) (unknown) tramadol 50 mg table t 100 mg PO BID PRN severe pain 03/22/22 (units unknown) (unknown) (unknown) (no date) (unknown) (unknown) tramadol 50 mg tablet (units unknown) (unknown) (unknown) (no date) (unknown) (unknown) trazodone 100 mg tablet See Rx Instructions .Route 11/20/21 (units unknown) (unknown) (unknown) (no date) (unknown) (unknown) trazodone 100 mg tablet (units unknown) (unknown) (unknown) (no date) (unknown) (unknown) trimethoprim [From BACTRIM] Allergy Mild RASH Verified 04/22/22 14:44 (units unknown) (unknown) Result panel 350 (unknown) (no date) (unknown) (unknown) (no value) (units unknown) (unknown) (unknown) (no date) (unknown) (unknown) (scale score 7-10) #60 tabs (units unknown) (unknown) (unknown) (no date) (unknown) (unknown) .COMPLEX #180 tabs (units unknown) (unknown) (unknown) (no date) (unknown) (unknown) 11/15/22 11/15/22 11/15/22 Range/Units (units unknown) (unknown) (unknown) (no date) (unknown) (unknown) 11/15/22 11/15/22 Range/Units (units unknown) (unknown) (unknown) (no date) (unknown) (unknown) 11/15/22 21:20 (units unknown) (unknown) (unknown) (no date) (unknown) (unknown) 11/15/22 21:32 (units unknown) (unknown) (unknown) (no date) (unknown) (unknown) 11/15/22 22:00 (units unknown) (unknown) (unknown) (no date) (unknown) (unknown) 11/15/22 (units unknown) (unknown) (unknown) (no date) (unknown) (unknown) 1 tab PO Q8H PRN (Reason: pain) Qty: 6 0RF (units unknown) (unknown) (unknown) (no date) (unknown) (unknown) 10 mg PO QID Qty: 12 0 2RF (units unknown) (unknown) (unknown) (no date) (unknown) (unknown) 100 mg PO BEDTIME (units unknown) (unknown) (unknown) (no date) (unknown) (unknown) 100 mg PO BID PRN (Reason: severe pain (scale score 7-10)) Qty: 60 0RF (units unknown) (unknown) (unknown) (no date) (unknown) (unknown) 2 g topical QID Qty: 100 3RF (units unknown) (unknown) (unknown) (no date) (unknown) (unknown) 200 mg PO DAILY Qty: 30 2RF (units unknown) (unknown) (unknown) (no date) (unknown) (unknown) 200 mg PO DAILY Qty: 60 2RF (units unknown) (unknown) (unknown) (no date) (unknown) (unknown) 21:09 11/15/22 (units unknown) (unknown) (unknown) (no date) (unknown) (unknown) 21:20 21:32 21:32 (units unknown) (unknown) (unknown) (no date) (unknown) (unknown) 21:32 21:32 (units unknown) (unknown) (unknown) (no date) (unknown) (unknown) 22:00 (units unknown) (unknown) (unknown) (no date) (unknown) (unknown) 5 mg PO Q6H PRN (Reason: pain) Qty: 14 0RF (units unknown) (unknown) (unknown) (no date) (unknown) (unknown) 5 mg PO TID PRN (Reason: muscle spasm) Qty: 10 0RF (units unknown) (unknown) (unknown) (no date) (unknown) (unknown) 5 mm (units unknown) (unknown) (unknown) (no date) (unknown) (unknown) 500 mg PO BID Qty: 6 0 0RF (units unknown) (unknown) (unknown) (no date) (unknown) (unknown) : [id number] (units unknown) (unknown) (unknown) (no date) (unknown) (unknown) ? (units unknown) (unknown) (unknown) (no date) (unknown) (unknown) ABDOMEN: Soft, mild tenderness left quadrant guarding rebound (units unknown) (unknown) (unknown) (no date) (unknown) (unknown) ALT (<35) IU/L (units unknown) (unknown) (unknown) (no date) (unknown) (unknown) ALT 16 (<35) IU/L (units unknown) (unknown) (unknown) (no date) (unknown) (unknown) AST (14-36) IU/L (units unknown) (unknown) (unknown) (no date) (unknown) (unknown) AST 16 (14-36) IU/L (units unknown) (unknown) (unknown) (no date) (unknown) (unknown) Admin: 11/15/22 22:2 4 Dose: 1,000 mls/hr (units unknown) (unknown) (unknown) (no date) (unknown) (unknown) Age/Sex: 27 / F (units unknown) (unknown) (unknown) (no date) (unknown) (unknown) Albumin (3.5-5.0) g/dL (units unknown) (unknown) (unknown) (no date) (unknown) (unknown) Albumin 3.9 (3.5-5.0 ) g/dL (units unknown) (unknown) (unknown) (no date) (unknown) (unknown) Albumin/Globulin Ratio (1.0-2.8) (units unknown) (unknown) (unknown) (no date) (unknown) (unknown) Albumin/Globulin Ratio 1.6 (1.0-2.8) (units unknown) (unknown) (unknown) (no date) (unknown) (unknown) Alkaline Phosphatase (38-126) U/L (units unknown) (unknown) (unknown) (no date) (unknown) (unknown) Alkaline Phosphatase 43 (38-126) U/L (units unknown) (unknown) (unknown) (no date) (unknown) (unknown) Allergies (units unknown) (unknown) (unknown) (no date) (unknown) (unknown) Allergy/AdvReac Type Severity Reaction Status Date / Time (units unknown) (unknown) (unknown) (no date) (unknown) (unknown) Apparently this is known because she is scheduled to have it fixed in November. 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 (units unknown) (unknown) (unknown) (no date) (unknown) (unknown) BUN (7-17) mg/dL (units unknown) (unknown) (unknown) (no date) (unknown) (unknown) BUN 15 (7-17) mg/dL (units unknown) (unknown) (unknown) (no date) (unknown) (unknown) BUN/Creatinine Ratio (6-22) (units unknown) (unknown) (unknown) (no date) (unknown) (unknown) BUN/Creatinine Ratio 17.2 (6-22) (units unknown) (unknown) (unknown) (no date) (unknown) (unknown) Baso # (Auto) (0-100 ) /uL (units unknown) (unknown) (unknown) (no date) (unknown) (unknown) Baso # (Auto) 100 (0-100) /uL (units unknown) (unknown) (unknown) (no date) (unknown) (unknown) Baso % (Auto) (0-2) % (units unknown) (unknown) (unknown) (no date) (unknown) (unknown) Baso % (Auto) 1.9 (0-2) % (units unknown) (unknown) (unknown) (no date) (unknown) (unknown) Bedside Urine Bilirubin - Negative (units unknown) (unknown) (unknown) (no date) (unknown) (unknown) Bedside Urine Glucos e Negative (units unknown) (unknown) (unknown) (no date) (unknown) (unknown) Bedside Urine Ketone - Negative (units unknown) (unknown) (unknown) (no date) (unknown) (unknown) Bedside Urine Leukocytes + 70 (units unknown) (unknown) (unknown) (no date) (unknown) (unknown) Bedside Urine Nitrit e - Negative (units unknown) (unknown) (unknown) (no date) (unknown) (unknown) Bedside Urine Occult Blood - Negative (units unknown) (unknown) (unknown) (no date) (unknown) (unknown) Bedside Urine Protei n + 30 (units unknown) (unknown) (unknown) (no date) (unknown) (unknown) Bedside Urine Urobilinogen +/- 1mg (units unknown) (unknown) (unknown) (no date) (unknown) (unknown) Bedside Urine pH 6.0 (units unknown) (unknown) (unknown) (no date) (unknown) (unknown) Blood Pressure 140/6 3 11/15/22 21:09 (units unknown) (unknown) (unknown) (no date) (unknown) (unknown) Blood Pressure 140/6 3 140/63 (units unknown) (unknown) (unknown) (no date) (unknown) (unknown) Body wall:? Unremarkable (units unknown) (unknown) (unknown) (no date) (unknown) (unknown) Bones:? No acute or suspicious osseous finding. (units unknown) (unknown) (unknown) (no date) (unknown) (unknown) Bowel and peritoneum:? No evidence of small bowel obstruction.? There are (units unknown) (unknown) (unknown) (no date) (unknown) (unknown) Breast cancer (units unknown) (unknown) (unknown) (no date) (unknown) (unknown) CAD (coronary artery disease) (units unknown) (unknown) (unknown) (no date) (unknown) (unknown) CARDIOVASCULAR: Regular rate and rhythm without murmurs, rubs or gallops. (units unknown) (unknown) (unknown) (no date) (unknown) (unknown) CBC Auto Diff [Complete Blood Count AUTO DIFF] Stat (units unknown) (unknown) (unknown) (no date) (unknown) (unknown) CMP [Comprehensive Metabolic Panel] Stat (units unknown) (unknown) (unknown) (no date) (unknown) (unknown) COMPARISON:? [facility], MR, MR ABDOMEN MRCP, 06/12/2022, 10:50.? (units unknown) (unknown) (unknown) (no date) (unknown) (unknown) CT abdomen pelvis wo con Stat (units unknown) (unknown) (unknown) (no date) (unknown) (unknown) CT scan - abdomen/pelvis: (units unknown) (unknown) (unknown) (no date) (unknown) (unknown) Calcium (8.4-10.2) mg/dL (units unknown) (unknown) (unknown) (no date) (unknown) (unknown) Calcium 8.3 L (8.4-10.2) mg/dL (units unknown) (unknown) (unknown) (no date) (unknown) (unknown) Carbon Dioxide (22-32) mmol/L (units unknown) (unknown) (unknown) (no date) (unknown) (unknown) Carbon Dioxide 27 (22-32) mmol/L (units unknown) (unknown) (unknown) (no date) (unknown) (unknown) Chief Complaint: Abdominal Pain (units unknown) (unknown) (unknown) (no date) (unknown) (unknown) Chloride (98-107) mmol/L (units unknown) (unknown) (unknown) (no date) (unknown) (unknown) Chloride 103 (98-107 ) mmol/L (units unknown) (unknown) (unknown) (no date) (unknown) (unknown) Consider CT IVP and possible cystoscopy for further workup of hematuria.? (units unknown) (unknown) (unknown) (no date) (unknown) (unknown) Consider ultrasound correlation if needed to further workup pelvic organs.? (units unknown) (unknown) (unknown) (no date) (unknown) (unknown) Contract void and provider will offer no further tramadol refills if tramadol (units unknown) (unknown) (unknown) (no date) (unknown) (unknown) Course (units unknown) (unknown) (unknown) (no date) (unknown) (unknown) Creatinine (0.52-1.04) mg/dL (units unknown) (unknown) (unknown) (no date) (unknown) (unknown) Creatinine 0.87 (0.52-1.04) mg/dL (units unknown) (unknown) (unknown) (no date) (unknown) (unknown) : 1995 Acct:[id number] (units unknown) (unknown) (unknown) (no date) (unknown) (unknown) Date of Service: 11/15/22 (units unknown) (unknown) (unknown) (no date) (unknown) (unknown) Departure (units unknown) (unknown) (unknown) (no date) (unknown) (unknown) Dictated by: Alan Castaneda M.D. on 11/15/2022 at 22:28 ?? (units unknown) (unknown) (unknown) (no date) (unknown) (unknown) Diphenhydramine HCl (Diphenhydramine 50 Mg/Ml Vial) 25 mg IV NOW ONE (units unknown) (unknown) (unknown) (no date) (unknown) (unknown) Discharge Plan (units unknown) (unknown) (unknown) (no date) (unknown) (unknown) Discontinued Medications (units unknown) (unknown) (unknown) (no date) (unknown) (unknown) Documented By: BS (units unknown) (unknown) (unknown) (no date) (unknown) (unknown) Documented By: SPF (units unknown) (unknown) (unknown) (no date) (unknown) (unknown) Dose Instruction: (units unknown) (unknown) (unknown) (no date) (unknown) (unknown) ED Orders (units unknown) (unknown) (unknown) (no date) (unknown) (unknown) ER Physician: Stephie Escalante D.O. (units unknown) (unknown) (unknown) (no date) (unknown) (unknown) EXTREMITIES: Normal range of motion, no clubbing or edema. Neurovascularly (units unknown) (unknown) (unknown) (no date) (unknown) (unknown) Emergency Report (units unknown) (unknown) (unknown) (no date) (unknown) (unknown) Endometriosis (units unknown) (unknown) (unknown) (no date) (unknown) (unknown) Eos # (Auto) (0-450) /uL (units unknown) (unknown) (unknown) (no date) (unknown) (unknown) Eos # (Auto) 100 (0-450) /uL (units unknown) (unknown) (unknown) (no date) (unknown) (unknown) Eos % (Auto) (2-4) % (units unknown) (unknown) (unknown) (no date) (unknown) (unknown) Eos % (Auto) 2.0 (2-4) % (units unknown) (unknown) (unknown) (no date) (unknown) (unknown) Esterase (units unknown) (unknown) (unknown) (no date) (unknown) (unknown) Estimated GFR > 60 (>60) mL/min (units unknown) (unknown) (unknown) (no date) (unknown) (unknown) Estimated GFR (>60) mL/min (units unknown) (unknown) (unknown) (no date) (unknown) (unknown) Exam (units unknown) (unknown) (unknown) (no date) (unknown) (unknown) FINDINGS:? (units unknown) (unknown) (unknown) (no date) (unknown) (unknown) Family History (units unknown) (unknown) (unknown) (no date) (unknown) (unknown) GENERAL: Alert pleasant well-appearing 27-year-old female and in no acute (units unknown) (unknown) (unknown) (no date) (unknown) (unknown) : No CVA tenderness (units unknown) (unknown) (unknown) (no date) (unknown) (unknown) General (units unknown) (unknown) (unknown) (no date) (unknown) (unknown) Globulin (1.7-4.1) g/dL (units unknown) (unknown) (unknown) (no date) (unknown) (unknown) Globulin 2.5 (1.7-4.1) g/dL (units unknown) (unknown) (unknown) (no date) (unknown) (unknown) Glucose (70-100) mg/dL (units unknown) (unknown) (unknown) (no date) (unknown) (unknown) Glucose 96 (70-100) mg/dL (units unknown) (unknown) (unknown) (no date) (unknown) (unknown) Grandmother Ovarian cancer (units unknown) (unknown) (unknown) (no date) (unknown) (unknown) H/O unilateral oophorectomy () (units unknown) (unknown) (unknown) (no date) (unknown) (unknown) H/O: hysterectomy (units unknown) (unknown) (unknown) (no date) (unknown) (unknown) HEENT: Head atraumatic,EOMI, pupils reactive, face symmetric, moist mucous (units unknown) (unknown) (unknown) (no date) (unknown) (unknown) HPI - Abdominal Pain (units unknown) (unknown) (unknown) (no date) (unknown) (unknown) HPI narrative: (units unknown) (unknown) (unknown) (no date) (unknown) (unknown) Hct (36-46) % (units unknown) (unknown) (unknown) (no date) (unknown) (unknown) Hct 35.8 L (36-46) % (units unknown) (unknown) (unknown) (no date) (unknown) (unknown) Hematuria (units unknown) (unknown) (unknown) (no date) (unknown) (unknown) Hgb (12.0-16.0) g/dL (units unknown) (unknown) (unknown) (no date) (unknown) (unknown) Hgb 12.6 (12.0-16.0) g/dL (units unknown) (unknown) (unknown) (no date) (unknown) (unknown) History of Present Illness (units unknown) (unknown) (unknown) (no date) (unknown) (unknown) History of ureter stent (units unknown) (unknown) (unknown) (no date) (unknown) (unknown) Hold Instructions: NEEDS TO SEE NEUROLOGY (units unknown) (unknown) (unknown) (no date) (unknown) (unknown) Hold Instructions: SEEN BY PSYCHIATRY (units unknown) (unknown) (unknown) (no date) (unknown) (unknown) Home Medications (units unknown) (unknown) (unknown) (no date) (unknown) (unknown) Hydromorphone HCl (Hydromorphone 1 Mg Inj) 1 mg IV NOW ONE (units unknown) (unknown) (unknown) (no date) (unknown) (unknown) Hyperlipidemia (units unknown) (unknown) (unknown) (no date) (unknown) (unknown) Hypertension (units unknown) (unknown) (unknown) (no date) (unknown) (unknown) Hysterectomy. (units unknown) (unknown) (unknown) (no date) (unknown) (unknown) IMPRESSION:? No acut e abdominal pelvic pathology.? No calcified renal stones.? (units unknown) (unknown) (unknown) (no date) (unknown) (unknown) INDICATIONS:? Left lower quadrant pain, hematuria (units unknown) (unknown) (unknown) (no date) (unknown) (unknown) INJECT INTRAMUSCULARLY EVERY 20 MINUTES NEEDED FOR ANAPHYLAXIS UNTIL (units unknown) (unknown) (unknown) (no date) (unknown) (unknown) IV DYE] (units unknown) (unknown) (unknown) (no date) (unknown) (unknown) Image quality:? Good (units unknown) (unknown) (unknown) (no date) (unknown) (unknown) Imaging Data (units unknown) (unknown) (unknown) (no date) (unknown) (unknown) Initial Vital Signs (units unknown) (unknown) (unknown) (no date) (unknown) (unknown) Initial Vital Signs: (units unknown) (unknown) (unknown) (no date) (unknown) (unknown) Iodinated Contrast Media Allergy Unknown Verified 04/22/22 14:44 (units unknown) (unknown) (unknown) (no date) (unknown) (unknown) [place] [id number] (units unknown) (unknown) (unknown) (no date) (unknown) (unknown) Lab Data (units unknown) (unknown) (unknown) (no date) (unknown) (unknown) Lab Results (units unknown) (unknown) (unknown) (no date) (unknown) (unknown) Labs: (units unknown) (unknown) (unknown) (no date) (unknown) (unknown) Lactate (0.7-2.1) mmol/L (units unknown) (unknown) (unknown) (no date) (unknown) (unknown) Lactate (Lactic Acid ) Stat (units unknown) (unknown) (unknown) (no date) (unknown) (unknown) Lactate 1.2 (0.7-2.1 ) mmol/L (units unknown) (unknown) (unknown) (no date) (unknown) (unknown) Last Admin: 11/15/22 22:00 Dose: 10 mg (units unknown) (unknown) (unknown) (no date) (unknown) (unknown) Last Admin: 11/15/22 22:01 Dose: 40 mg (units unknown) (unknown) (unknown) (no date) (unknown) (unknown) Last Admin: 11/15/22 22:21 Dose: Not Given (units unknown) (unknown) (unknown) (no date) (unknown) (unknown) Last Admin: 11/15/22 23:01 Dose: 1 mg (units unknown) (unknown) (unknown) (no date) (unknown) (unknown) Last Infusion: 11/15/22 23:34 Dose: 0 mls/hr (units unknown) (unknown) (unknown) (no date) (unknown) (unknown) Limit as possible. Prescribed per 03/21 signed pain management contract. (units unknown) (unknown) (unknown) (no date) (unknown) (unknown) Lipase (23-300) U/L (units unknown) (unknown) (unknown) (no date) (unknown) (unknown) Lipase 86 (23-300) U/L (units unknown) (unknown) (unknown) (no date) (unknown) (unknown) Lipase Stat (units unknown) (unknown) (unknown) (no date) (unknown) (unknown) Lower chest:? Unremarkable.? No hiatal hernia. (units unknown) (unknown) (unknown) (no date) (unknown) (unknown) Lymph # (Auto) (7626-2122) /uL (units unknown) (unknown) (unknown) (no date) (unknown) (unknown) Lymph # (Auto) 2200 (1943-9682) /uL (units unknown) (unknown) (unknown) (no date) (unknown) (unknown) Lymph % (Auto) (25-40) % (units unknown) (unknown) (unknown) (no date) (unknown) (unknown) Lymph % (Auto) 34.4 (25-40) % (units unknown) (unknown) (unknown) (no date) (unknown) (unknown) MCH (26-34) PG (units unknown) (unknown) (unknown) (no date) (unknown) (unknown) MCH 31.2 (26-34) PG (units unknown) (unknown) (unknown) (no date) (unknown) (unknown) MCHC (30-36) % (units unknown) (unknown) (unknown) (no date) (unknown) (unknown) MCHC 35.3 (30-36) % (units unknown) (unknown) (unknown) (no date) (unknown) (unknown) MCV (80-100) fL (units unknown) (unknown) (unknown) (no date) (unknown) (unknown) MCV 88.6 (80-100) fL (units unknown) (unknown) (unknown) (no date) (unknown) (unknown) MDM - Abdominal Pain (units unknown) (unknown) (unknown) (no date) (unknown) (unknown) MDM Narrative (units unknown) (unknown) (unknown) (no date) (unknown) (unknown) Major depressive disorder (units unknown) (unknown) (unknown) (no date) (unknown) (unknown) Medical History (units unknown) (unknown) (unknown) (no date) (unknown) (unknown) Medical decision making narrative: (units unknown) (unknown) (unknown) (no date) (unknown) (unknown) Medication Instructions Recorded Confirmed (units unknown) (unknown) (unknown) (no date) (unknown) (unknown) Medication Instructions Recorded (units unknown) (unknown) (unknown) (no date) (unknown) (unknown) Methylprednisolone (Methylprednisolone 125 Mg/2 Ml Vial) 125 mg IV NOW ONE (units unknown) (unknown) (unknown) (no date) (unknown) (unknown) [place] # (Auto) (0-900 ) /uL (units unknown) (unknown) (unknown) (no date) (unknown) (unknown) [place] # (Auto) 400 (0-900) /uL (units unknown) (unknown) (unknown) (no date) (unknown) (unknown) [place] % (Auto) (3-14) % (units unknown) (unknown) (unknown) (no date) (unknown) (unknown) [place] % (Auto) 6.9 (3-14) % (units unknown) (unknown) (unknown) (no date) (unknown) (unknown) Morbid obesity (units unknown) (unknown) (unknown) (no date) (unknown) (unknown) Mother BRCA positive (units unknown) (unknown) (unknown) (no date) (unknown) (unknown) NEUROLOGICAL: Alert and oriented x4.Normal gait and speech. (units unknown) (unknown) (unknown) (no date) (unknown) (unknown) Nephrolithiasis (-2018) (units unknown) (unknown) (unknown) (no date) (unknown) (unknown) Neut # (Auto) (4800-1886) /uL (units unknown) (unknown) (unknown) (no date) (unknown) (unknown) Neut # (Auto) 3500 (5301-2727) /uL (units unknown) (unknown) (unknown) (no date) (unknown) (unknown) Neut % (Auto) (50-75 ) % (units unknown) (unknown) (unknown) (no date) (unknown) (unknown) Neut % (Auto) 54.8 (50-75) % (units unknown) (unknown) (unknown) (no date) (unknown) (unknown) No Action (units unknown) (unknown) (unknown) (no date) (unknown) (unknown) No hydronephrosis.? No calcified stones.? As before, minimally hyperattenuating (units unknown) (unknown) (unknown) (no date) (unknown) (unknown) No (units unknown) (unknown) (unknown) (no date) (unknown) (unknown) Noncontrast 5 mm thick sections acquired from the diaphragms to the symphysis.? (units unknown) (unknown) (unknown) (no date) (unknown) (unknown) Ordered: (units unknown) (unknown) (unknown) (no date) (unknown) (unknown) Orders (units unknown) (unknown) (unknown) (no date) (unknown) (unknown) Ovarian cyst (units unknown) (unknown) (unknown) (no date) (unknown) (unknown) Oxygen Delivery Method Room Air 11/15/22 21:09 (units unknown) (unknown) (unknown) (no date) (unknown) (unknown) Oxygen Delivery Method Room Air (units unknown) (unknown) (unknown) (no date) (unknown) (unknown) PCOS (polycystic ovarian syndrome) (units unknown) (unknown) (unknown) (no date) (unknown) (unknown) PROCEDURE:? CT ABDOMEN PELVIS WO CON (units unknown) (unknown) (unknown) (no date) (unknown) (unknown) Pantoprazole Sodium (Pantoprazole 40 Mg Vial) 40 mg IV NOW ONE (units unknown) (unknown) (unknown) (no date) (unknown) (unknown) Patellar dislocation (units unknown) (unknown) (unknown) (no date) (unknown) (unknown) Patient 27-year-old female with multiple complicated medical issues. Parents (units unknown) (unknown) (unknown) (no date) (unknown) (unknown) Patient 27-year-old female with significant history of anxiety, psychogenic (units unknown) (unknown) (unknown) (no date) (unknown) (unknown) Patient History (units unknown) (unknown) (unknown) (no date) (unknown) (unknown) Patient: Calin Jorgensen MR# (units unknown) (unknown) (unknown) (no date) (unknown) (unknown) Pelvic congestion (2013) (units unknown) (unknown) (unknown) (no date) (unknown) (unknown) Pelvis:? Bladder is underdistended which limits evaluation.? Hysterectomy.? (units unknown) (unknown) (unknown) (no date) (unknown) (unknown) Penicillins [PENICILLINS] Allergy Mild Verified 04/22/22 14:44 (units unknown) (unknown) (unknown) (no date) (unknown) (unknown) Plt Count (150-400) X103/uL (units unknown) (unknown) (unknown) (no date) (unknown) (unknown) Plt Count 245 (150-400) X103/uL (units unknown) (unknown) (unknown) (no date) (unknown) (unknown) Point of Care Testing (units unknown) (unknown) (unknown) (no date) (unknown) (unknown) Point of care testing: (units unknown) (unknown) (unknown) (no date) (unknown) (unknown) Potassium (3.4-5.1) mmol/L (units unknown) (unknown) (unknown) (no date) (unknown) (unknown) Potassium 3.6 (3.4-5.1) mmol/L (units unknown) (unknown) (unknown) (no date) (unknown) (unknown) Test Results Negative (units unknown) (unknown) (unknown) (no date) (unknown) (unknown) Prescriptions: (units unknown) (unknown) (unknown) (no date) (unknown) (unknown) Previous Rx's (units unknown) (unknown) (unknown) (no date) (unknown) (unknown) Procalcitonin < 0.03 (<0.5) ng/mL (units unknown) (unknown) (unknown) (no date) (unknown) (unknown) Procalcitonin (<0.5) ng/mL (units unknown) (unknown) (unknown) (no date) (unknown) (unknown) Procalcitonin Stat (units unknown) (unknown) (unknown) (no date) (unknown) (unknown) Prochlorperazine (Prochlorperazine 10 Mg/2 Ml Vial) 10 mg IV NOW ONE (units unknown) (unknown) (unknown) (no date) (unknown) (unknown) Prominent (units unknown) (unknown) (unknown) (no date) (unknown) (unknown) Psychogenic nonepileptic seizure (units unknown) (unknown) (unknown) (no date) (unknown) (unknown) Pulse Oximetry 97 11/15/22 21:09 (units unknown) (unknown) (unknown) (no date) (unknown) (unknown) Pulse Oximetry 97 (units unknown) (unknown) (unknown) (no date) (unknown) (unknown) Pulse Rate 78 11/15/22 21:09 (units unknown) (unknown) (unknown) (no date) (unknown) (unknown) Pulse Rate 78 60 (units unknown) (unknown) (unknown) (no date) (unknown) (unknown) RBC (4.0-5.2) X106/uL (units unknown) (unknown) (unknown) (no date) (unknown) (unknown) RBC 4.04 (4.0-5.2) X106/uL (units unknown) (unknown) (unknown) (no date) (unknown) (unknown) RDW (11.6-14.8) % (units unknown) (unknown) (unknown) (no date) (unknown) (unknown) RDW 12.7 (11.6-14.8) % (units unknown) (unknown) (unknown) (no date) (unknown) (unknown) RESPIRATORY: Breath sounds equal bilaterally, no wheezes rales or rhonchi. (units unknown) (unknown) (unknown) (no date) (unknown) (unknown) RESPONSE (units unknown) (unknown) (unknown) (no date) (unknown) (unknown) Radiologist's Impression: (units unknown) (unknown) (unknown) (no date) (unknown) (unknown) Records from yesterday report that there is area from her hysterectomy that (units unknown) (unknown) (unknown) (no date) (unknown) (unknown) Referrals: (units unknown) (unknown) (unknown) (no date) (unknown) (unknown) Related Data (units unknown) (unknown) (unknown) (no date) (unknown) (unknown) Respiratory Rate 16 11/15/22 21:09 (units unknown) (unknown) (unknown) (no date) (unknown) (unknown) Respiratory Rate 16 (units unknown) (unknown) (unknown) (no date) (unknown) (unknown) Rx Instructions: (units unknown) (unknown) (unknown) (no date) (unknown) (unknown) SKIN: Warm, dry, no laceration, no petechiae, no rashes or lesions. (units unknown) (unknown) (unknown) (no date) (unknown) (unknown) See Rx Instructions .ROUTE .COMPLEX Qty: 180 0RF (units unknown) (unknown) (unknown) (no date) (unknown) (unknown) See Rx Instructions .ROUTE .COMPLEX Qty: 2 0RF (units unknown) (unknown) (unknown) (no date) (unknown) (unknown) See Rx Instructions PO BEDTIME Qty: 45 2RF (units unknown) (unknown) (unknown) (no date) (unknown) (unknown) Signed By: (units unknown) (unknown) (unknown) (no date) (unknown) (unknown) [facility] recently for an EGD which she was found to have erosive (units unknown) (unknown) (unknown) (no date) (unknown) (unknown) [facility] (units unknown) (unknown) (unknown) (no date) (unknown) (unknown) Smoking Status: Current every day smoker (units unknown) (unknown) (unknown) (no date) (unknown) (unknown) Social History (units unknown) (unknown) (unknown) (no date) (unknown) (unknown) Sodium (137-145) mmol/L (units unknown) (unknown) (unknown) (no date) (unknown) (unknown) Sodium 136 L (137-145) mmol/L (units unknown) (unknown) (unknown) (no date) (unknown) (unknown) Sodium Chloride (Normal Saline 0.9%) 1,000 mls @ 1,000 mls/hr IV BOLUS ONE (units unknown) (unknown) (unknown) (no date) (unknown) (unknown) Solid organs:? Liver is unremarkable.? Gallbladder is absent.? No pathologic (units unknown) (unknown) (unknown) (no date) (unknown) (unknown) Stated Complaint: abdominal pain, vomiting blood (units unknown) (unknown) (unknown) (no date) (unknown) (unknown) Status post appendectomy (2003) (units unknown) (unknown) (unknown) (no date) (unknown) (unknown) Status post bilatera l salpingectomy (10/21/17) (units unknown) (unknown) (unknown) (no date) (unknown) (unknown) Status post dilation and curettage (2010) (units unknown) (unknown) (unknown) (no date) (unknown) (unknown) Status post dilation and curettage (2011) (units unknown) (unknown) (unknown) (no date) (unknown) (unknown) Status post knee surgery (2007) (units unknown) (unknown) (unknown) (no date) (unknown) (unknown) Status post knee surgery (2012) (units unknown) (unknown) (unknown) (no date) (unknown) (unknown) Status post laparoscopic supracervical hysterectomy (10/21/17) (units unknown) (unknown) (unknown) (no date) (unknown) (unknown) Status post laparoscopy () (units unknown) (unknown) (unknown) (no date) (unknown) (unknown) Status post laparoscopy (2003) (units unknown) (unknown) (unknown) (no date) (unknown) (unknown) Status post laparoscopy (2004) (units unknown) (unknown) (unknown) (no date) (unknown) (unknown) Status post laparoscopy (2011) (units unknown) (unknown) (unknown) (no date) (unknown) (unknown) Status post removal of cervix (units unknown) (unknown) (unknown) (no date) (unknown) (unknown) Status post tonsillectomy and adenoidectomy (units unknown) (unknown) (unknown) (no date) (unknown) (unknown) Stop: 11/15/22 21:42 (units unknown) (unknown) (unknown) (no date) (unknown) (unknown) Stop: 11/15/22 22:03 (units unknown) (unknown) (unknown) (no date) (unknown) (unknown) Stop: 11/15/22 22:12 (units unknown) (unknown) (unknown) (no date) (unknown) (unknown) Stop: 11/15/22 22:51 (units unknown) (unknown) (unknown) (no date) (unknown) (unknown) Substance Use Type: does not use (units unknown) (unknown) (unknown) (no date) (unknown) (unknown) Surgical History (units unknown) (unknown) (unknown) (no date) (unknown) (unknown) TAKE 2 TABLETS BY MOUTH AT BEDTIME NEEDED FOR INSOMNIA (units unknown) (unknown) (unknown) (no date) (unknown) (unknown) TECHNIQUE:? (units unknown) (unknown) (unknown) (no date) (unknown) (unknown) Take 1 tab p.o. at HS. May take 1/2 tab p.o. during the day for anxiety (units unknown) (unknown) (unknown) (no date) (unknown) (unknown) Temperature 97.6 F 11/15/22 21:09 (units unknown) (unknown) (unknown) (no date) (unknown) (unknown) Temperature 97.6 F (units unknown) (unknown) (unknown) (no date) (unknown) (unknown) Time Seen by Provider: 11/15/22 21:09 (units unknown) (unknown) (unknown) (no date) (unknown) (unknown) Total Bilirubin (0.2-1.3) mg/dL (units unknown) (unknown) (unknown) (no date) (unknown) (unknown) Total Bilirubin 0.5 (0.2-1.3) mg/dL (units unknown) (unknown) (unknown) (no date) (unknown) (unknown) Total Protein (6.3-8.2) g/dL (units unknown) (unknown) (unknown) (no date) (unknown) (unknown) Total Protein 6.4 (6.3-8.2) g/dL (units unknown) (unknown) (unknown) (no date) (unknown) (unknown) UA Complete [Urinalysis and Microscopic] Stat (units unknown) (unknown) (unknown) (no date) (unknown) (unknown) UTI. No evidence of sepsis she is a normal lactate normal WBC electrolytes are (units unknown) (unknown) (unknown) (no date) (unknown) (unknown) Ur Culture Indicated ? Specimen cultured (units unknown) (unknown) (unknown) (no date) (unknown) (unknown) Ur Culture Indicated? (units unknown) (unknown) (unknown) (no date) (unknown) (unknown) Ur Leukocyte [place] e (NEGATIVE) (units unknown) (unknown) (unknown) (no date) (unknown) (unknown) Ur Leukocyte [place] e 1+ H (NEGATIVE) (units unknown) (unknown) (unknown) (no date) (unknown) (unknown) Ur Specific [place] (1.000-1.035) (units unknown) (unknown) (unknown) (no date) (unknown) (unknown) Ur Specific [place] 1.025 (1.000-1.035) (units unknown) (unknown) (unknown) (no date) (unknown) (unknown) Ur Squamous Epith Cells (0-5/HPF) (units unknown) (unknown) (unknown) (no date) (unknown) (unknown) Ur Squamous Epith Cells 1-5 /hpf D (0-5/HPF) (units unknown) (unknown) (unknown) (no date) (unknown) (unknown) Urine Appearance Cloudy (units unknown) (unknown) (unknown) (no date) (unknown) (unknown) Urine Appearance (units unknown) (unknown) (unknown) (no date) (unknown) (unknown) Urine Bacteria (None) (units unknown) (unknown) (unknown) (no date) (unknown) (unknown) Urine Bacteria Occasional (0-1) (None) (units unknown) (unknown) (unknown) (no date) (unknown) (unknown) Urine Bilirubin (NEGATIVE) (units unknown) (unknown) (unknown) (no date) (unknown) (unknown) Urine Bilirubin Negative (NEGATIVE) (units unknown) (unknown) (unknown) (no date) (unknown) (unknown) Urine Color Red (units unknown) (unknown) (unknown) (no date) (unknown) (unknown) Urine Color (units unknown) (unknown) (unknown) (no date) (unknown) (unknown) Urine Culture Stat (units unknown) (unknown) (unknown) (no date) (unknown) (unknown) Urine Dip (units unknown) (unknown) (unknown) (no date) (unknown) (unknown) Urine Glucose (UA) (Negative) g/dL (units unknown) (unknown) (unknown) (no date) (unknown) (unknown) Urine Glucose (UA) Negative (Negative) g/dL (units unknown) (unknown) (unknown) (no date) (unknown) (unknown) Urine Ketones (NEGATIVE) (units unknown) (unknown) (unknown) (no date) (unknown) (unknown) Urine Ketones Negative (NEGATIVE) (units unknown) (unknown) (unknown) (no date) (unknown) (unknown) Urine Nitrate (Negative) (units unknown) (unknown) (unknown) (no date) (unknown) (unknown) Urine Nitrate Negative (Negative) (units unknown) (unknown) (unknown) (no date) (unknown) (unknown) Urine Occult Blood (Negative) (units unknown) (unknown) (unknown) (no date) (unknown) (unknown) Urine Occult Blood 3 + H (Negative) (units unknown) (unknown) (unknown) (no date) (unknown) (unknown) Urine Protein (Negative) (units unknown) (unknown) (unknown) (no date) (unknown) (unknown) Urine Protein 1+ H (Negative) (units unknown) (unknown) (unknown) (no date) (unknown) (unknown) Urine RBC >100/hpf H (0-5/HPF) (units unknown) (unknown) (unknown) (no date) (unknown) (unknown) Urine RBC (0-5/HPF) (units unknown) (unknown) (unknown) (no date) (unknown) (unknown) Urine Specific [place] 1.020 (units unknown) (unknown) (unknown) (no date) (unknown) (unknown) Urine Urobilinogen (0.2) E.U./dL (units unknown) (unknown) (unknown) (no date) (unknown) (unknown) Urine Urobilinogen 1.0 (0.2) E.U./dL (units unknown) (unknown) (unknown) (no date) (unknown) (unknown) Urine WBC (0-5/HPF) (units unknown) (unknown) (unknown) (no date) (unknown) (unknown) Urine WBC 1-5/hpf (0-5/HPF) (units unknown) (unknown) (unknown) (no date) (unknown) (unknown) Urine pH (4.5-8.0) (units unknown) (unknown) (unknown) (no date) (unknown) (unknown) Urine pH 6.5 (4.5-8.0) (units unknown) (unknown) (unknown) (no date) (unknown) (unknown) [facility], CT, CT ABDOMEN PELVIS WITHOUT CONTRAST, 06/11/2022, 19:33.? (units unknown) (unknown) (unknown) (no date) (unknown) (unknown) [facility], MR, MR ABDOMEN MRCP, 06/12/2022, 10:50. (units unknown) (unknown) (unknown) (no date) (unknown) (unknown) Vessels and lymph nodes:? No abdominal aortic aneurysm or pathologic adenopathy (units unknown) (unknown) (unknown) (no date) (unknown) (unknown) Vital Signs - 8 hr (units unknown) (unknown) (unknown) (no date) (unknown) (unknown) Vital Signs (units unknown) (unknown) (unknown) (no date) (unknown) (unknown) Vital signs: (units unknown) (unknown) (unknown) (no date) (unknown) (unknown) WBC (4.5-11.0) X103/uL (units unknown) (unknown) (unknown) (no date) (unknown) (unknown) WBC 6.4 (4.5-11.0) X103/uL (units unknown) (unknown) (unknown) (no date) (unknown) (unknown) Christi Johnson , JORDAN, INFLATABLE BUILDINGS LAMINATOR [Primary Care Provider] (units unknown) (unknown) (unknown) (no date) (unknown) (unknown) [Embedded Image Not Available] (units unknown) (unknown) (unknown) (no date) (unknown) (unknown) [From BACTRIM] (units unknown) (unknown) (unknown) (no date) (unknown) (unknown) [IODINATED CONTRAST MEDIA (units unknown) (unknown) (unknown) (no date) (unknown) (unknown) [METOCLOPRAMIDE] (units unknown) (unknown) (unknown) (no date) (unknown) (unknown) [SHELLFISH DERIVED] (units unknown) (unknown) (unknown) (no date) (unknown) (unknown) abdominal cramping. She is found to have vaginal bleeding despite hysterectomy. (units unknown) (unknown) (unknown) (no date) (unknown) (unknown) about 14 (units unknown) (unknown) (unknown) (no date) (unknown) (unknown) according to (units unknown) (unknown) (unknown) (no date) (unknown) (unknown) actually was seen evaluated by her primary care provider yesterday she was (units unknown) (unknown) (unknown) (no date) (unknown) (unknown) adhesive [ADHESIVE] Allergy Mild Verified 04/22/22 14:44 (units unknown) (unknown) (unknown) (no date) (unknown) (unknown) alcohol intake frequency: holidays/special occasions only (units unknown) (unknown) (unknown) (no date) (unknown) (unknown) allergic to contrast (units unknown) (unknown) (unknown) (no date) (unknown) (unknown) amoxicillin [AMOXICILLIN] Allergy Mild Verified 04/22/22 14:44 (units unknown) (unknown) (unknown) (no date) (unknown) (unknown) appearance of the renal pyramids bilaterally. (units unknown) (unknown) (unknown) (no date) (unknown) (unknown) apply to single elbow, wrist or hand; for hand includes palm/fingers/back of (units unknown) (unknown) (unknown) (no date) (unknown) (unknown) by size (units unknown) (unknown) (unknown) (no date) (unknown) (unknown) cephalexin [CEPHALEXIN] Allergy Unknown Verified 04/22/22 14:44 (units unknown) (unknown) (unknown) (no date) (unknown) (unknown) chills. No flank pain. He is had multiple CTs previously. She was admitted at (units unknown) (unknown) (unknown) (no date) (unknown) (unknown) ciprofloxacin [CIPROFLOXACIN] Allergy Unknown Verified 04/22/22 14:44 (units unknown) (unknown) (unknown) (no date) (unknown) (unknown) clindamycin [CLINDAMYCIN] Allergy Unknown Verified 04/22/22 14:44 (units unknown) (unknown) (unknown) (no date) (unknown) (unknown) cm.? No adrenal nodules.? (units unknown) (unknown) (unknown) (no date) (unknown) (unknown) colonic (units unknown) (unknown) (unknown) (no date) (unknown) (unknown) coronal and sagittal reformats were then performed.? For radiation dose (units unknown) (unknown) (unknown) (no date) (unknown) (unknown) criteria. (units unknown) (unknown) (unknown) (no date) (unknown) (unknown) diazepam 10 mg table t 10 mg PO QID #120 tabs 10/12/21 (units unknown) (unknown) (unknown) (no date) (unknown) (unknown) diazepam 10 mg tablet (units unknown) (unknown) (unknown) (no date) (unknown) (unknown) diazepam 5 mg tablet (Valium) 5 mg PO TID PRN muscle spasm #10 10/19/21 (units unknown) (unknown) (unknown) (no date) (unknown) (unknown) diazepam [Valium] 5 mg tablet (units unknown) (unknown) (unknown) (no date) (unknown) (unknown) diclofenac sodium 1 % gel (units unknown) (unknown) (unknown) (no date) (unknown) (unknown) diclofenac sodium 1 % topical gel 2 g topical QID #100 grams 05/05/22 (units unknown) (unknown) (unknown) (no date) (unknown) (unknown) dilation of (units unknown) (unknown) (unknown) (no date) (unknown) (unknown) distress. (units unknown) (unknown) (unknown) (no date) (unknown) (unknown) diverticula.? No abscess or pathologic ascites. (units unknown) (unknown) (unknown) (no date) (unknown) (unknown) doxycycline [DOXYCYCLINE] Allergy Mild Verified 04/22/22 14:44 (units unknown) (unknown) (unknown) (no date) (unknown) (unknown) epinephrine 0.3 mg/0.3 mL See Rx Instructions .Route 02/27/22 (units unknown) (unknown) (unknown) (no date) (unknown) (unknown) epinephrine 0.3 mg/0.3 mL auto-injector (units unknown) (unknown) (unknown) (no date) (unknown) (unknown) evaluated on CT, consider ultrasound correlation if needed. (units unknown) (unknown) (unknown) (no date) (unknown) (unknown) following was used:? automated exposure control, adjustment of mA and/or kV (units unknown) (unknown) (unknown) (no date) (unknown) (unknown) gastritis. She can not have NSAIDs. She is taking oxycodone. (units unknown) (unknown) (unknown) (no date) (unknown) (unknown) hand (units unknown) (unknown) (unknown) (no date) (unknown) (unknown) has opened. However patient reports that she only started bleeding 2 days ago. (units unknown) (unknown) (unknown) (no date) (unknown) (unknown) having galactorrhea which started 2 days ago. She says this is persisting. She (units unknown) (unknown) (unknown) (no date) (unknown) (unknown) household members: spouse and children (units unknown) (unknown) (unknown) (no date) (unknown) (unknown) hydrocodone Allergy Mild rash Verified 04/22/22 14:44 (units unknown) (unknown) (unknown) (no date) (unknown) (unknown) hydronephrosis.? Nonspecific trace hyperattenuating appearance of the renal (units unknown) (unknown) (unknown) (no date) (unknown) (unknown) injection, auto-injector .COMPLEX #2 ea (units unknown) (unknown) (unknown) (no date) (unknown) (unknown) intact (units unknown) (unknown) (unknown) (no date) (unknown) (unknown) iodine [IODINE] Allergy Mild Verified 04/22/22 14:44 (units unknown) (unknown) (unknown) (no date) (unknown) (unknown) is metoclopramide Phenergan and oxycodone all which increase and (units unknown) (unknown) (unknown) (no date) (unknown) (unknown) lamotrigine 200 mg tablet 200 mg PO DAILY #30 tabs 01/18/22 (units unknown) (unknown) (unknown) (no date) (unknown) (unknown) lamotrigine 200 mg tablet (units unknown) (unknown) (unknown) (no date) (unknown) (unknown) latex [LATEX] Allerg y Unknown Verified 04/22/22 14:44 (units unknown) (unknown) (unknown) (no date) (unknown) (unknown) left ovary, with decreased size of previously seen cyst, reproductive organs are (units unknown) (unknown) (unknown) (no date) (unknown) (unknown) lidocaine AdvReac Palpitation Verified 04/22/22 14:44 (units unknown) (unknown) (unknown) (no date) (unknown) (unknown) lives independently: Yes (units unknown) (unknown) (unknown) (no date) (unknown) (unknown) marital status: (units unknown) (unknown) (unknown) (no date) (unknown) (unknown) membranes (units unknown) (unknown) (unknown) (no date) (unknown) (unknown) metformin 500 mg tablet 500 mg PO BID #60 tabs 02/21/22 (units unknown) (unknown) (unknown) (no date) (unknown) (unknown) metformin 500 mg tablet (units unknown) (unknown) (unknown) (no date) (unknown) (unknown) metoclopramide Allergy Mild Verified 04/22/22 14:44 (units unknown) (unknown) (unknown) (no date) (unknown) (unknown) mg tablet (Percocet) (units unknown) (unknown) (unknown) (no date) (unknown) (unknown) multiple EGDs, e history of vaginal bleeding despite hysterectomy, presents (units unknown) (unknown) (unknown) (no date) (unknown) (unknown) neuroleptic seizures , PTSD depression, erosive gastritis causing hematemesis (units unknown) (unknown) (unknown) (no date) (unknown) (unknown) not well (units unknown) (unknown) (unknown) (no date) (unknown) (unknown) occupational status: employed (units unknown) (unknown) (unknown) (no date) (unknown) (unknown) oxycodone 10 mg tablet 5 mg PO Q6H PRN pain #14 tabs 05/05/22 (units unknown) (unknown) (unknown) (no date) (unknown) (unknown) oxycodone 10 mg tablet (units unknown) (unknown) (unknown) (no date) (unknown) (unknown) oxycodone-acetaminop h en 5 mg-325 1 tab PO Q8H PRN pain #6 tabs 04/22/22 (units unknown) (unknown) (unknown) (no date) (unknown) (unknown) oxycodone-acetaminop h en [Percocet] 5-325 mg tablet (units unknown) (unknown) (unknown) (no date) (unknown) (unknown) patient size.? (units unknown) (unknown) (unknown) (no date) (unknown) (unknown) prolactin levels. Sh e apparently does have vaginal bleeding there is a known (units unknown) (unknown) (unknown) (no date) (unknown) (unknown) pyramids is (units unknown) (unknown) (unknown) (no date) (unknown) (unknown) quetiapine 100 mg tablet 100 mg PO BEDTIME 02/27/22 02/27/22 (units unknown) (unknown) (unknown) (no date) (unknown) (unknown) quetiapine 100 mg tablet (units unknown) (unknown) (unknown) (no date) (unknown) (unknown) quetiapine 25 mg tablet See Rx Instructions PO BEDTIME #45 01/18/22 (units unknown) (unknown) (unknown) (no date) (unknown) (unknown) quetiapine 25 mg tablet (units unknown) (unknown) (unknown) (no date) (unknown) (unknown) received per another provider. (units unknown) (unknown) (unknown) (no date) (unknown) (unknown) reduction, the (units unknown) (unknown) (unknown) (no date) (unknown) (unknown) s (units unknown) (unknown) (unknown) (no date) (unknown) (unknown) says have blood in her urine some leukocytes. No nitrates. Will treat for a (units unknown) (unknown) (unknown) (no date) (unknown) (unknown) sertraline 100 mg tablet 200 mg PO DAILY #60 tabs 01/18/22 (units unknown) (unknown) (unknown) (no date) (unknown) (unknown) sertraline 100 mg tablet (units unknown) (unknown) (unknown) (no date) (unknown) (unknown) shellfish derived Allergy Severe ANAPHYLAXIS Verified 04/22/22 14:44 (units unknown) (unknown) (unknown) (no date) (unknown) (unknown) small opening in the cuff of her hysterectomy as identified her surgeon when she (units unknown) (unknown) (unknown) (no date) (unknown) (unknown) sometimes associated with nephrocalcinosis. (units unknown) (unknown) (unknown) (no date) (unknown) (unknown) started lactating sh e started vaginal bleeding again. She denies fever or (units unknown) (unknown) (unknown) (no date) (unknown) (unknown) sulfamethoxazole Allergy Mild RASH Verified 04/22/22 14:44 (units unknown) (unknown) (unknown) (no date) (unknown) (unknown) tabs (units unknown) (unknown) (unknown) (no date) (unknown) (unknown) the biliary tree or pancreatic duct.? Similar borderline splenomegaly, measuring (units unknown) (unknown) (unknown) (no date) (unknown) (unknown) tobacco type: vaping (units unknown) (unknown) (unknown) (no date) (unknown) (unknown) today with left lowe r quadrant pain nausea vomiting in vaginal bleeding. She (units unknown) (unknown) (unknown) (no date) (unknown) (unknown) tramadol 50 mg table t 100 mg PO BID PRN severe pain 03/22/22 (units unknown) (unknown) (unknown) (no date) (unknown) (unknown) tramadol 50 mg tablet (units unknown) (unknown) (unknown) (no date) (unknown) (unknown) trazodone 100 mg tablet See Rx Instructions .Route 11/20/21 (units unknown) (unknown) (unknown) (no date) (unknown) (unknown) trazodone 100 mg tablet (units unknown) (unknown) (unknown) (no date) (unknown) (unknown) trimethoprim [From BACTRIM] Allergy Mild RASH Verified 04/22/22 14:44 (units unknown) (unknown) (unknown) (no date) (unknown) (unknown) within normal limits . Patient had CT does not show any abnormality. She is (units unknown) (unknown) Result panel 351 (unknown) (no date) (unknown) (unknown) (no value) (units unknown) (unknown) (unknown) (no date) (unknown) (unknown) <Electronically signed by Stephie Escalante D.O.> (units unknown) (unknown) (unknown) (no date) (unknown) (unknown) (scale score 7-10) #60 tabs (units unknown) (unknown) (unknown) (no date) (unknown) (unknown) *Continue to take medications as directed (units unknown) (unknown) (unknown) (no date) (unknown) (unknown) *Follow up with your primary care provider in 2-3 days or call [phone] (units unknown) (unknown) (unknown) (no date) (unknown) (unknown) *Return to ER if you should have increasing pain passing out heavy vaginal (units unknown) (unknown) (unknown) (no date) (unknown) (unknown) *What to do: At this time will treat you for a bladder infection. Please (units unknown) (unknown) (unknown) (no date) (unknown) (unknown) *You have been diagnosed with bladder infection (units unknown) (unknown) (unknown) (no date) (unknown) (unknown) .COMPLEX #180 tabs (units unknown) (unknown) (unknown) (no date) (unknown) (unknown) 00:00 11/16/22 (units unknown) (unknown) (unknown) (no date) (unknown) (unknown) 00:30 (units unknown) (unknown) (unknown) (no date) (unknown) (unknown) 00:31 11/16/22 (units unknown) (unknown) (unknown) (no date) (unknown) (unknown) 00:39 (units unknown) (unknown) (unknown) (no date) (unknown) (unknown) 11/15/22 11/15/22 11/15/22 Range/Units (units unknown) (unknown) (unknown) (no date) (unknown) (unknown) 11/15/22 11/15/22 Range/Units (units unknown) (unknown) (unknown) (no date) (unknown) (unknown) 11/15/22 21:20 (units unknown) (unknown) (unknown) (no date) (unknown) (unknown) 11/15/22 21:32 (units unknown) (unknown) (unknown) (no date) (unknown) (unknown) 11/15/22 22:00 (units unknown) (unknown) (unknown) (no date) (unknown) (unknown) 11/15/22 (units unknown) (unknown) (unknown) (no date) (unknown) (unknown) 11/16/22 0155 (units unknown) (unknown) (unknown) (no date) (unknown) (unknown) 11/16/22 (units unknown) (unknown) (unknown) (no date) (unknown) (unknown) 1 tab PO Q8H PRN (Reason: pain) Qty: 6 0RF (units unknown) (unknown) (unknown) (no date) (unknown) (unknown) 10 mg PO QID Qty: 12 0 2RF (units unknown) (unknown) (unknown) (no date) (unknown) (unknown) 100 mg PO BEDTIME (units unknown) (unknown) (unknown) (no date) (unknown) (unknown) 100 mg PO BID PRN (Reason: severe pain (scale score 7-10)) Qty: 60 0RF (units unknown) (unknown) (unknown) (no date) (unknown) (unknown) 2 g topical QID Qty: 100 3RF (units unknown) (unknown) (unknown) (no date) (unknown) (unknown) 200 mg PO DAILY Qty: 30 2RF (units unknown) (unknown) (unknown) (no date) (unknown) (unknown) 200 mg PO DAILY Qty: 60 2RF (units unknown) (unknown) (unknown) (no date) (unknown) (unknown) 21:09 11/15/22 (units unknown) (unknown) (unknown) (no date) (unknown) (unknown) 21:14 (units unknown) (unknown) (unknown) (no date) (unknown) (unknown) 21:20 21:32 21:32 (units unknown) (unknown) (unknown) (no date) (unknown) (unknown) 21:30 11/15/22 (units unknown) (unknown) (unknown) (no date) (unknown) (unknown) 21:32 21:32 (units unknown) (unknown) (unknown) (no date) (unknown) (unknown) 22:00 11/15/22 (units unknown) (unknown) (unknown) (no date) (unknown) (unknown) 22:01 11/15/22 (units unknown) (unknown) (unknown) (no date) (unknown) (unknown) 22:01 (units unknown) (unknown) (unknown) (no date) (unknown) (unknown) 22:29 11/15/22 (units unknown) (unknown) (unknown) (no date) (unknown) (unknown) 22:29 (units unknown) (unknown) (unknown) (no date) (unknown) (unknown) 22:30 11/15/22 (units unknown) (unknown) (unknown) (no date) (unknown) (unknown) 23:00 (units unknown) (unknown) (unknown) (no date) (unknown) (unknown) 23:30 11/16/22 (units unknown) (unknown) (unknown) (no date) (unknown) (unknown) 5 mg PO Q6H PRN (Reason: pain) Qty: 14 0RF (units unknown) (unknown) (unknown) (no date) (unknown) (unknown) 5 mg PO TID PRN (Reason: muscle spasm) Qty: 10 0RF (units unknown) (unknown) (unknown) (no date) (unknown) (unknown) 5 mm (units unknown) (unknown) (unknown) (no date) (unknown) (unknown) 500 mg PO BID Qty: 6 0 0RF (units unknown) (unknown) (unknown) (no date) (unknown) (unknown) 500 mg PO DAILY 3 Days Qty: 3 0RF (units unknown) (unknown) (unknown) (no date) (unknown) (unknown) : [id number] (units unknown) (unknown) (unknown) (no date) (unknown) (unknown) ? (units unknown) (unknown) (unknown) (no date) (unknown) (unknown) ABDOMEN: Soft, mild tenderness left quadrant guarding rebound (units unknown) (unknown) (unknown) (no date) (unknown) (unknown) ALT (<35) IU/L (units unknown) (unknown) (unknown) (no date) (unknown) (unknown) ALT 16 (<35) IU/L (units unknown) (unknown) (unknown) (no date) (unknown) (unknown) AST (14-36) IU/L (units unknown) (unknown) (unknown) (no date) (unknown) (unknown) AST 16 (14-36) IU/L (units unknown) (unknown) (unknown) (no date) (unknown) (unknown) Activity Restrictions/Addition al Instructions: (units unknown) (unknown) (unknown) (no date) (unknown) (unknown) Admin: 11/15/22 22:2 4 Dose: 1,000 mls/hr (units unknown) (unknown) (unknown) (no date) (unknown) (unknown) Age/Sex: 27 / F (units unknown) (unknown) (unknown) (no date) (unknown) (unknown) Albumin (3.5-5.0) g/dL (units unknown) (unknown) (unknown) (no date) (unknown) (unknown) Albumin 3.9 (3.5-5.0 ) g/dL (units unknown) (unknown) (unknown) (no date) (unknown) (unknown) Albumin/Globulin Ratio (1.0-2.8) (units unknown) (unknown) (unknown) (no date) (unknown) (unknown) Albumin/Globulin Ratio 1.6 (1.0-2.8) (units unknown) (unknown) (unknown) (no date) (unknown) (unknown) Alkaline Phosphatase (38-126) U/L (units unknown) (unknown) (unknown) (no date) (unknown) (unknown) Alkaline Phosphatase 43 (38-126) U/L (units unknown) (unknown) (unknown) (no date) (unknown) (unknown) Allergies (units unknown) (unknown) (unknown) (no date) (unknown) (unknown) Allergy/AdvReac Type Severity Reaction Status Date / Time (units unknown) (unknown) (unknown) (no date) (unknown) (unknown) Apparently this is known because she is scheduled to have it fixed in November. 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 (units unknown) (unknown) (unknown) (no date) (unknown) (unknown) BUN (7-17) mg/dL (units unknown) (unknown) (unknown) (no date) (unknown) (unknown) BUN 15 (7-17) mg/dL (units unknown) (unknown) (unknown) (no date) (unknown) (unknown) BUN/Creatinine Ratio (6-22) (units unknown) (unknown) (unknown) (no date) (unknown) (unknown) BUN/Creatinine Ratio 17.2 (6-22) (units unknown) (unknown) (unknown) (no date) (unknown) (unknown) Baso # (Auto) (0-100 ) /uL (units unknown) (unknown) (unknown) (no date) (unknown) (unknown) Baso # (Auto) 100 (0-100) /uL (units unknown) (unknown) (unknown) (no date) (unknown) (unknown) Baso % (Auto) (0-2) % (units unknown) (unknown) (unknown) (no date) (unknown) (unknown) Baso % (Auto) 1.9 (0-2) % (units unknown) (unknown) (unknown) (no date) (unknown) (unknown) Bedside Urine Bilirubin - Negative (units unknown) (unknown) (unknown) (no date) (unknown) (unknown) Bedside Urine Glucos e Negative (units unknown) (unknown) (unknown) (no date) (unknown) (unknown) Bedside Urine Ketone - Negative (units unknown) (unknown) (unknown) (no date) (unknown) (unknown) Bedside Urine Leukocytes + 70 (units unknown) (unknown) (unknown) (no date) (unknown) (unknown) Bedside Urine Nitrit e - Negative (units unknown) (unknown) (unknown) (no date) (unknown) (unknown) Bedside Urine Occult Blood - Negative (units unknown) (unknown) (unknown) (no date) (unknown) (unknown) Bedside Urine Protei n + 30 (units unknown) (unknown) (unknown) (no date) (unknown) (unknown) Bedside Urine Urobilinogen +/- 1mg (units unknown) (unknown) (unknown) (no date) (unknown) (unknown) Bedside Urine pH 6.0 (units unknown) (unknown) (unknown) (no date) (unknown) (unknown) Blood Pressure 105/5 8 L (units unknown) (unknown) (unknown) (no date) (unknown) (unknown) Blood Pressure 109/5 9 L (units unknown) (unknown) (unknown) (no date) (unknown) (unknown) Blood Pressure 117/5 5 L 101/52 L (units unknown) (unknown) (unknown) (no date) (unknown) (unknown) Blood Pressure 140/6 3 11/15/22 21:09 (units unknown) (unknown) (unknown) (no date) (unknown) (unknown) Blood Pressure 140/6 3 140/63 (units unknown) (unknown) (unknown) (no date) (unknown) (unknown) Blood Pressure (units unknown) (unknown) (unknown) (no date) (unknown) (unknown) Body wall:? Unremarkable (units unknown) (unknown) (unknown) (no date) (unknown) (unknown) Bones:? No acute or suspicious osseous finding. (units unknown) (unknown) (unknown) (no date) (unknown) (unknown) Bowel and peritoneum:? No evidence of small bowel obstruction.? There are (units unknown) (unknown) (unknown) (no date) (unknown) (unknown) Breast cancer (units unknown) (unknown) (unknown) (no date) (unknown) (unknown) CAD (coronary artery disease) (units unknown) (unknown) (unknown) (no date) (unknown) (unknown) CARDIOVASCULAR: Regular rate and rhythm without murmurs, rubs or gallops. (units unknown) (unknown) (unknown) (no date) (unknown) (unknown) CBC Auto Diff [Complete Blood Count AUTO DIFF] Stat (units unknown) (unknown) (unknown) (no date) (unknown) (unknown) CMP [Comprehensive Metabolic Panel] Stat (units unknown) (unknown) (unknown) (no date) (unknown) (unknown) COMPARISON:? [facility], MR, MR [facility], 06/12/2022, 10:50.? (units unknown) (unknown) (unknown) (no date) (unknown) (unknown) CT abdomen pelvis wo con Stat (units unknown) (unknown) (unknown) (no date) (unknown) (unknown) CT scan - abdomen/pelvis: (units unknown) (unknown) (unknown) (no date) (unknown) (unknown) Calcium (8.4-10.2) mg/dL (units unknown) (unknown) (unknown) (no date) (unknown) (unknown) Calcium 8.3 L (8.4-10.2) mg/dL (units unknown) (unknown) (unknown) (no date) (unknown) (unknown) Carbon Dioxide (22-32) mmol/L (units unknown) (unknown) (unknown) (no date) (unknown) (unknown) Carbon Dioxide 27 (22-32) mmol/L (units unknown) (unknown) (unknown) (no date) (unknown) (unknown) Chief Complaint: Abdominal Pain (units unknown) (unknown) (unknown) (no date) (unknown) (unknown) Chloride (98-107) mmol/L (units unknown) (unknown) (unknown) (no date) (unknown) (unknown) Chloride 103 (98-107 ) mmol/L (units unknown) (unknown) (unknown) (no date) (unknown) (unknown) Clinical Impression: (units unknown) (unknown) (unknown) (no date) (unknown) (unknown) Consider CT IVP and possible cystoscopy for further workup of hematuria.? (units unknown) (unknown) (unknown) (no date) (unknown) (unknown) Consider ultrasound correlation if needed to further workup pelvic organs.? (units unknown) (unknown) (unknown) (no date) (unknown) (unknown) Contract void and provider will offer no further tramadol refills if tramadol (units unknown) (unknown) (unknown) (no date) (unknown) (unknown) Course (units unknown) (unknown) (unknown) (no date) (unknown) (unknown) Creatinine (0.52-1.04) mg/dL (units unknown) (unknown) (unknown) (no date) (unknown) (unknown) Creatinine 0.87 (0.52-1.04) mg/dL (units unknown) (unknown) (unknown) (no date) (unknown) (unknown) : 1995 Acct:[id number] (units unknown) (unknown) (unknown) (no date) (unknown) (unknown) Date of Service: 11/15/22 (units unknown) (unknown) (unknown) (no date) (unknown) (unknown) Departure (units unknown) (unknown) (unknown) (no date) (unknown) (unknown) Dictated by: Alan Castaneda M.D. on 11/15/2022 at 22:28 ?? (units unknown) (unknown) (unknown) (no date) (unknown) (unknown) Diphenhydramine HCl (Diphenhydramine 50 Mg/Ml Vial) 25 mg IV NOW ONE (units unknown) (unknown) (unknown) (no date) (unknown) (unknown) Discharge Plan (units unknown) (unknown) (unknown) (no date) (unknown) (unknown) Discontinued Medications (units unknown) (unknown) (unknown) (no date) (unknown) (unknown) Documented By: BS (units unknown) (unknown) (unknown) (no date) (unknown) (unknown) Documented By: SPF (units unknown) (unknown) (unknown) (no date) (unknown) (unknown) Dose Instruction: (units unknown) (unknown) (unknown) (no date) (unknown) (unknown) ED Orders (units unknown) (unknown) (unknown) (no date) (unknown) (unknown) ER Physician: Stephie Escalante D.O. (units unknown) (unknown) (unknown) (no date) (unknown) (unknown) EXTREMITIES: Normal range of motion, no clubbing or edema. Neurovascularly (units unknown) (unknown) (unknown) (no date) (unknown) (unknown) Emergency Report (units unknown) (unknown) (unknown) (no date) (unknown) (unknown) Endometriosis (units unknown) (unknown) (unknown) (no date) (unknown) (unknown) Eos # (Auto) (0-450) /uL (units unknown) (unknown) (unknown) (no date) (unknown) (unknown) Eos # (Auto) 100 (0-450) /uL (units unknown) (unknown) (unknown) (no date) (unknown) (unknown) Eos % (Auto) (2-4) % (units unknown) (unknown) (unknown) (no date) (unknown) (unknown) Eos % (Auto) 2.0 (2-4) % (units unknown) (unknown) (unknown) (no date) (unknown) (unknown) Esterase (units unknown) (unknown) (unknown) (no date) (unknown) (unknown) Estimated GFR > 60 (>60) mL/min (units unknown) (unknown) (unknown) (no date) (unknown) (unknown) Estimated GFR (>60) mL/min (units unknown) (unknown) (unknown) (no date) (unknown) (unknown) Exam (units unknown) (unknown) (unknown) (no date) (unknown) (unknown) FINDINGS:? (units unknown) (unknown) (unknown) (no date) (unknown) (unknown) Family History (units unknown) (unknown) (unknown) (no date) (unknown) (unknown) GENERAL: Alert pleasant well-appearing 27-year-old female and in no acute (units unknown) (unknown) (unknown) (no date) (unknown) (unknown) : No CVA tenderness (units unknown) (unknown) (unknown) (no date) (unknown) (unknown) General (units unknown) (unknown) (unknown) (no date) (unknown) (unknown) Globulin (1.7-4.1) g/dL (units unknown) (unknown) (unknown) (no date) (unknown) (unknown) Globulin 2.5 (1.7-4.1) g/dL (units unknown) (unknown) (unknown) (no date) (unknown) (unknown) Glucose (70-100) mg/dL (units unknown) (unknown) (unknown) (no date) (unknown) (unknown) Glucose 96 (70-100) mg/dL (units unknown) (unknown) (unknown) (no date) (unknown) (unknown) Grandmother Ovarian cancer (units unknown) (unknown) (unknown) (no date) (unknown) (unknown) H/O unilateral oophorectomy () (units unknown) (unknown) (unknown) (no date) (unknown) (unknown) H/O: hysterectomy (units unknown) (unknown) (unknown) (no date) (unknown) (unknown) HEENT: Head atraumatic,EOMI, pupils reactive, face symmetric, moist mucous (units unknown) (unknown) (unknown) (no date) (unknown) (unknown) HPI - Abdominal Pain (units unknown) (unknown) (unknown) (no date) (unknown) (unknown) HPI narrative: (units unknown) (unknown) (unknown) (no date) (unknown) (unknown) Hct (36-46) % (units unknown) (unknown) (unknown) (no date) (unknown) (unknown) Hct 35.8 L (36-46) % (units unknown) (unknown) (unknown) (no date) (unknown) (unknown) Hematuria (units unknown) (unknown) (unknown) (no date) (unknown) (unknown) Hgb (12.0-16.0) g/dL (units unknown) (unknown) (unknown) (no date) (unknown) (unknown) Hgb 12.6 (12.0-16.0) g/dL (units unknown) (unknown) (unknown) (no date) (unknown) (unknown) History of Present Illness (units unknown) (unknown) (unknown) (no date) (unknown) (unknown) History of ureter stent (units unknown) (unknown) (unknown) (no date) (unknown) (unknown) Hold Instructions: NEEDS TO SEE NEUROLOGY (units unknown) (unknown) (unknown) (no date) (unknown) (unknown) Hold Instructions: SEEN BY PSYCHIATRY (units unknown) (unknown) (unknown) (no date) (unknown) (unknown) Home Medications (units unknown) (unknown) (unknown) (no date) (unknown) (unknown) Hydromorphone HCl (Hydromorphone 1 Mg Inj) 1 mg IV NOW ONE (units unknown) (unknown) (unknown) (no date) (unknown) (unknown) Hyperlipidemia (units unknown) (unknown) (unknown) (no date) (unknown) (unknown) Hypertension (units unknown) (unknown) (unknown) (no date) (unknown) (unknown) Hysterectomy. (units unknown) (unknown) (unknown) (no date) (unknown) (unknown) IMPRESSION:? No acut e abdominal pelvic pathology.? No calcified renal stones.? (units unknown) (unknown) (unknown) (no date) (unknown) (unknown) INDICATIONS:? Left lower quadrant pain, hematuria (units unknown) (unknown) (unknown) (no date) (unknown) (unknown) INJECT INTRAMUSCULARLY EVERY 20 MINUTES NEEDED FOR ANAPHYLAXIS UNTIL (units unknown) (unknown) (unknown) (no date) (unknown) (unknown) IV DYE] (units unknown) (unknown) (unknown) (no date) (unknown) (unknown) Image quality:? Good (units unknown) (unknown) (unknown) (no date) (unknown) (unknown) Imaging Data (units unknown) (unknown) (unknown) (no date) (unknown) (unknown) Initial Vital Signs (units unknown) (unknown) (unknown) (no date) (unknown) (unknown) Initial Vital Signs: (units unknown) (unknown) (unknown) (no date) (unknown) (unknown) Instructions: DI for Urinary Tract Infection (UTI) (units unknown) (unknown) (unknown) (no date) (unknown) (unknown) Iodinated Contrast Media Allergy Unknown Verified 04/22/22 14:44 (units unknown) (unknown) (unknown) (no date) (unknown) (unknown) [address] [address] (units unknown) (unknown) (unknown) (no date) (unknown) (unknown) Lab Data (units unknown) (unknown) (unknown) (no date) (unknown) (unknown) Lab Results (units unknown) (unknown) (unknown) (no date) (unknown) (unknown) Labs: (units unknown) (unknown) (unknown) (no date) (unknown) (unknown) Lactate (0.7-2.1) mmol/L (units unknown) (unknown) (unknown) (no date) (unknown) (unknown) Lactate (Lactic Acid ) Stat (units unknown) (unknown) (unknown) (no date) (unknown) (unknown) Lactate 1.2 (0.7-2.1 ) mmol/L (units unknown) (unknown) (unknown) (no date) (unknown) (unknown) Last Admin: 11/15/22 22:00 Dose: 10 mg (units unknown) (unknown) (unknown) (no date) (unknown) (unknown) Last Admin: 11/15/22 22:01 Dose: 40 mg (units unknown) (unknown) (unknown) (no date) (unknown) (unknown) Last Admin: 11/15/22 22:21 Dose: Not Given (units unknown) (unknown) (unknown) (no date) (unknown) (unknown) Last Admin: 11/15/22 23:01 Dose: 1 mg (units unknown) (unknown) (unknown) (no date) (unknown) (unknown) Last Infusion: 11/15/22 23:34 Dose: 0 mls/hr (units unknown) (unknown) (unknown) (no date) (unknown) (unknown) Levaquin 500 mg once a day for 3 days--> [facility] (units unknown) (unknown) (unknown) (no date) (unknown) (unknown) Limit as possible. Prescribed per 03/21 signed pain management contract. (units unknown) (unknown) (unknown) (no date) (unknown) (unknown) Lipase (23-300) U/L (units unknown) (unknown) (unknown) (no date) (unknown) (unknown) Lipase 86 (23-300) U/L (units unknown) (unknown) (unknown) (no date) (unknown) (unknown) Lipase Stat (units unknown) (unknown) (unknown) (no date) (unknown) (unknown) Lower chest:? Unremarkable.? No hiatal hernia. (units unknown) (unknown) (unknown) (no date) (unknown) (unknown) Lymph # (Auto) (6985-0861) /uL (units unknown) (unknown) (unknown) (no date) (unknown) (unknown) Lymph # (Auto) 2200 (9827-7220) /uL (units unknown) (unknown) (unknown) (no date) (unknown) (unknown) Lymph % (Auto) (25-40) % (units unknown) (unknown) (unknown) (no date) (unknown) (unknown) Lymph % (Auto) 34.4 (25-40) % (units unknown) (unknown) (unknown) (no date) (unknown) (unknown) MCH (26-34) PG (units unknown) (unknown) (unknown) (no date) (unknown) (unknown) MCH 31.2 (26-34) PG (units unknown) (unknown) (unknown) (no date) (unknown) (unknown) MCHC (30-36) % (units unknown) (unknown) (unknown) (no date) (unknown) (unknown) MCHC 35.3 (30-36) % (units unknown) (unknown) (unknown) (no date) (unknown) (unknown) MCV (80-100) fL (units unknown) (unknown) (unknown) (no date) (unknown) (unknown) MCV 88.6 (80-100) fL (units unknown) (unknown) (unknown) (no date) (unknown) (unknown) MDM - Abdominal Pain (units unknown) (unknown) (unknown) (no date) (unknown) (unknown) MDM Narrative (units unknown) (unknown) (unknown) (no date) (unknown) (unknown) Major depressive disorder (units unknown) (unknown) (unknown) (no date) (unknown) (unknown) Medical History (units unknown) (unknown) (unknown) (no date) (unknown) (unknown) Medical decision making narrative: (units unknown) (unknown) (unknown) (no date) (unknown) (unknown) Medication Instructions Recorded Confirmed (units unknown) (unknown) (unknown) (no date) (unknown) (unknown) Medication Instructions Recorded (units unknown) (unknown) (unknown) (no date) (unknown) (unknown) Methylprednisolone (Methylprednisolone 125 Mg/2 Ml Vial) 125 mg IV NOW ONE (units unknown) (unknown) (unknown) (no date) (unknown) (unknown) [place] # (Auto) (0-900 ) /uL (units unknown) (unknown) (unknown) (no date) (unknown) (unknown) [place] # (Auto) 400 (0-900) /uL (units unknown) (unknown) (unknown) (no date) (unknown) (unknown) [place] % (Auto) (3-14) % (units unknown) (unknown) (unknown) (no date) (unknown) (unknown) [place] % (Auto) 6.9 (3-14) % (units unknown) (unknown) (unknown) (no date) (unknown) (unknown) Morbid obesity (units unknown) (unknown) (unknown) (no date) (unknown) (unknown) Mother BRCA positive (units unknown) (unknown) (unknown) (no date) (unknown) (unknown) NEUROLOGICAL: Alert and oriented x4.Normal gait and speech. (units unknown) (unknown) (unknown) (no date) (unknown) (unknown) Nephrolithiasis (-2018) (units unknown) (unknown) (unknown) (no date) (unknown) (unknown) Neut # (Auto) (6863-8286) /uL (units unknown) (unknown) (unknown) (no date) (unknown) (unknown) Neut # (Auto) 3500 (1522-7814) /uL (units unknown) (unknown) (unknown) (no date) (unknown) (unknown) Neut % (Auto) (50-75 ) % (units unknown) (unknown) (unknown) (no date) (unknown) (unknown) Neut % (Auto) 54.8 (50-75) % (units unknown) (unknown) (unknown) (no date) (unknown) (unknown) New (units unknown) (unknown) (unknown) (no date) (unknown) (unknown) No Action (units unknown) (unknown) (unknown) (no date) (unknown) (unknown) No hydronephrosis.? No calcified stones.? As before, minimally hyperattenuating (units unknown) (unknown) (unknown) (no date) (unknown) (unknown) No (units unknown) (unknown) (unknown) (no date) (unknown) (unknown) Noncontrast 5 mm thick sections acquired from the diaphragms to the symphysis.? (units unknown) (unknown) (unknown) (no date) (unknown) (unknown) Ordered: (units unknown) (unknown) (unknown) (no date) (unknown) (unknown) Orders (units unknown) (unknown) (unknown) (no date) (unknown) (unknown) Ovarian cyst (units unknown) (unknown) (unknown) (no date) (unknown) (unknown) Oxygen Delivery Method Room Air 11/15/22 21:09 (units unknown) (unknown) (unknown) (no date) (unknown) (unknown) Oxygen Delivery Method Room Air (units unknown) (unknown) (unknown) (no date) (unknown) (unknown) Oxygen Delivery Method (units unknown) (unknown) (unknown) (no date) (unknown) (unknown) PCOS (polycystic ovarian syndrome) (units unknown) (unknown) (unknown) (no date) (unknown) (unknown) PROCEDURE:? CT ABDOMEN PELVIS WO CON (units unknown) (unknown) (unknown) (no date) (unknown) (unknown) Pantoprazole Sodium (Pantoprazole 40 Mg Vial) 40 mg IV NOW ONE (units unknown) (unknown) (unknown) (no date) (unknown) (unknown) Patellar dislocation (units unknown) (unknown) (unknown) (no date) (unknown) (unknown) Patient 27-year-old female with multiple complicated medical issues. Parents (units unknown) (unknown) (unknown) (no date) (unknown) (unknown) Patient 27-year-old female with significant history of anxiety, psychogenic (units unknown) (unknown) (unknown) (no date) (unknown) (unknown) Patient Disposition: Home (units unknown) (unknown) (unknown) (no date) (unknown) (unknown) Patient History (units unknown) (unknown) (unknown) (no date) (unknown) (unknown) Patient: Calin Jorgensen MR# (units unknown) (unknown) (unknown) (no date) (unknown) (unknown) Pelvic congestion (2013) (units unknown) (unknown) (unknown) (no date) (unknown) (unknown) Pelvis:? Bladder is underdistended which limits evaluation.? Hysterectomy.? (units unknown) (unknown) (unknown) (no date) (unknown) (unknown) Penicillins [PENICILLINS] Allergy Mild Verified 04/22/22 14:44 (units unknown) (unknown) (unknown) (no date) (unknown) (unknown) Plt Count (150-400) X103/uL (units unknown) (unknown) (unknown) (no date) (unknown) (unknown) Plt Count 245 (150-400) X103/uL (units unknown) (unknown) (unknown) (no date) (unknown) (unknown) Point of Care Testing (units unknown) (unknown) (unknown) (no date) (unknown) (unknown) Point of care testing: (units unknown) (unknown) (unknown) (no date) (unknown) (unknown) Potassium (3.4-5.1) mmol/L (units unknown) (unknown) (unknown) (no date) (unknown) (unknown) Potassium 3.6 (3.4-5.1) mmol/L (units unknown) (unknown) (unknown) (no date) (unknown) (unknown) Test Results Negative (units unknown) (unknown) (unknown) (no date) (unknown) (unknown) Prescriptions: (units unknown) (unknown) (unknown) (no date) (unknown) (unknown) Previous Rx's (units unknown) (unknown) (unknown) (no date) (unknown) (unknown) Procalcitonin < 0.03 (<0.5) ng/mL (units unknown) (unknown) (unknown) (no date) (unknown) (unknown) Procalcitonin (<0.5) ng/mL (units unknown) (unknown) (unknown) (no date) (unknown) (unknown) Procalcitonin Stat (units unknown) (unknown) (unknown) (no date) (unknown) (unknown) Prochlorperazine (Prochlorperazine 10 Mg/2 Ml Vial) 10 mg IV NOW ONE (units unknown) (unknown) (unknown) (no date) (unknown) (unknown) Prominent (units unknown) (unknown) (unknown) (no date) (unknown) (unknown) Psychogenic nonepileptic seizure (units unknown) (unknown) (unknown) (no date) (unknown) (unknown) Pulse Oximetry 100 100 (units unknown) (unknown) (unknown) (no date) (unknown) (unknown) Pulse Oximetry 97 11/15/22 21:09 (units unknown) (unknown) (unknown) (no date) (unknown) (unknown) Pulse Oximetry 97 97 100 (units unknown) (unknown) (unknown) (no date) (unknown) (unknown) Pulse Oximetry 97 97 (units unknown) (unknown) (unknown) (no date) (unknown) (unknown) Pulse Oximetry 97 98 98 (units unknown) (unknown) (unknown) (no date) (unknown) (unknown) Pulse Oximetry 97 (units unknown) (unknown) (unknown) (no date) (unknown) (unknown) Pulse Rate 58 L 58 L 73 (units unknown) (unknown) (unknown) (no date) (unknown) (unknown) Pulse Rate 60 (units unknown) (unknown) (unknown) (no date) (unknown) (unknown) Pulse Rate 62 70 (units unknown) (unknown) (unknown) (no date) (unknown) (unknown) Pulse Rate 68 63 62 (units unknown) (unknown) (unknown) (no date) (unknown) (unknown) Pulse Rate 69 69 (units unknown) (unknown) (unknown) (no date) (unknown) (unknown) Pulse Rate 78 11/15/22 21:09 (units unknown) (unknown) (unknown) (no date) (unknown) (unknown) Pulse Rate 78 60 74 (units unknown) (unknown) (unknown) (no date) (unknown) (unknown) RBC (4.0-5.2) X106/uL (units unknown) (unknown) (unknown) (no date) (unknown) (unknown) RBC 4.04 (4.0-5.2) X106/uL (units unknown) (unknown) (unknown) (no date) (unknown) (unknown) RDW (11.6-14.8) % (units unknown) (unknown) (unknown) (no date) (unknown) (unknown) RDW 12.7 (11.6-14.8) % (units unknown) (unknown) (unknown) (no date) (unknown) (unknown) RESPIRATORY: Breath sounds equal bilaterally, no wheezes rales or rhonchi. (units unknown) (unknown) (unknown) (no date) (unknown) (unknown) RESPONSE (units unknown) (unknown) (unknown) (no date) (unknown) (unknown) Radiologist's Impression: (units unknown) (unknown) (unknown) (no date) (unknown) (unknown) Records from yesterday report that there is area from her hysterectomy that (units unknown) (unknown) (unknown) (no date) (unknown) (unknown) Referrals: (units unknown) (unknown) (unknown) (no date) (unknown) (unknown) Related Data (units unknown) (unknown) (unknown) (no date) (unknown) (unknown) Respiratory Rate 16 11/15/22 21:09 (units unknown) (unknown) (unknown) (no date) (unknown) (unknown) Respiratory Rate 16 (units unknown) (unknown) (unknown) (no date) (unknown) (unknown) Respiratory Rate (units unknown) (unknown) (unknown) (no date) (unknown) (unknown) Rx Instructions: (units unknown) (unknown) (unknown) (no date) (unknown) (unknown) SKIN: Warm, dry, no laceration, no petechiae, no rashes or lesions. (units unknown) (unknown) (unknown) (no date) (unknown) (unknown) See Rx Instructions .ROUTE .COMPLEX Qty: 180 0RF (units unknown) (unknown) (unknown) (no date) (unknown) (unknown) See Rx Instructions .ROUTE .COMPLEX Qty: 2 0RF (units unknown) (unknown) (unknown) (no date) (unknown) (unknown) See Rx Instructions PO BEDTIME Qty: 45 2RF (units unknown) (unknown) (unknown) (no date) (unknown) (unknown) Signed By: (units unknown) (unknown) (unknown) (no date) (unknown) (unknown) [facility] recently for an EGD which she was found to have erosive (units unknown) (unknown) (unknown) (no date) (unknown) (unknown) [facility] (units unknown) (unknown) (unknown) (no date) (unknown) (unknown) Smoking Status: Current every day smoker (units unknown) (unknown) (unknown) (no date) (unknown) (unknown) Social History (units unknown) (unknown) (unknown) (no date) (unknown) (unknown) Sodium (137-145) mmol/L (units unknown) (unknown) (unknown) (no date) (unknown) (unknown) Sodium 136 L (137-145) mmol/L (units unknown) (unknown) (unknown) (no date) (unknown) (unknown) Sodium Chloride (Normal Saline 0.9%) 1,000 mls @ 1,000 mls/hr IV BOLUS ONE (units unknown) (unknown) (unknown) (no date) (unknown) (unknown) Solid organs:? Liver is unremarkable.? Gallbladder is absent.? No pathologic (units unknown) (unknown) (unknown) (no date) (unknown) (unknown) Stand Alone Forms: Patient Portal/API (units unknown) (unknown) (unknown) (no date) (unknown) (unknown) Stated Complaint: abdominal pain, vomiting blood (units unknown) (unknown) (unknown) (no date) (unknown) (unknown) Status post appendectomy (2003) (units unknown) (unknown) (unknown) (no date) (unknown) (unknown) Status post bilatera l salpingectomy (10/21/17) (units unknown) (unknown) (unknown) (no date) (unknown) (unknown) Status post dilation and curettage (2010) (units unknown) (unknown) (unknown) (no date) (unknown) (unknown) Status post dilation and curettage (2011) (units unknown) (unknown) (unknown) (no date) (unknown) (unknown) Status post knee surgery (2007) (units unknown) (unknown) (unknown) (no date) (unknown) (unknown) Status post knee surgery (2012) (units unknown) (unknown) (unknown) (no date) (unknown) (unknown) Status post laparoscopic supracervical hysterectomy (10/21/17) (units unknown) (unknown) (unknown) (no date) (unknown) (unknown) Status post laparoscopy () (units unknown) (unknown) (unknown) (no date) (unknown) (unknown) Status post laparoscopy (2003) (units unknown) (unknown) (unknown) (no date) (unknown) (unknown) Status post laparoscopy (2004) (units unknown) (unknown) (unknown) (no date) (unknown) (unknown) Status post laparoscopy (2011) (units unknown) (unknown) (unknown) (no date) (unknown) (unknown) Status post removal of cervix (units unknown) (unknown) (unknown) (no date) (unknown) (unknown) Status post tonsillectomy and adenoidectomy (units unknown) (unknown) (unknown) (no date) (unknown) (unknown) Stop: 11/15/22 21:42 (units unknown) (unknown) (unknown) (no date) (unknown) (unknown) Stop: 11/15/22 22:03 (units unknown) (unknown) (unknown) (no date) (unknown) (unknown) Stop: 11/15/22 22:12 (units unknown) (unknown) (unknown) (no date) (unknown) (unknown) Stop: 11/15/22 22:51 (units unknown) (unknown) (unknown) (no date) (unknown) (unknown) Substance Use Type: does not use (units unknown) (unknown) (unknown) (no date) (unknown) (unknown) Surgical History (units unknown) (unknown) (unknown) (no date) (unknown) (unknown) TAKE 2 TABLETS BY MOUTH AT BEDTIME NEEDED FOR INSOMNIA (units unknown) (unknown) (unknown) (no date) (unknown) (unknown) TECHNIQUE:? (units unknown) (unknown) (unknown) (no date) (unknown) (unknown) Take 1 tab p.o. at HS. November take 1/2 tab p.o. during the day for anxiety (units unknown) (unknown) (unknown) (no date) (unknown) (unknown) Temperature 97.6 F 11/15/22 21:09 (units unknown) (unknown) (unknown) (no date) (unknown) (unknown) Temperature 97.6 F (units unknown) (unknown) (unknown) (no date) (unknown) (unknown) Temperature 97.8 F (units unknown) (unknown) (unknown) (no date) (unknown) (unknown) Temperature (units unknown) (unknown) (unknown) (no date) (unknown) (unknown) Time Seen by Provider: 11/15/22 21:09 (units unknown) (unknown) (unknown) (no date) (unknown) (unknown) Total Bilirubin (0.2-1.3) mg/dL (units unknown) (unknown) (unknown) (no date) (unknown) (unknown) Total Bilirubin 0.5 (0.2-1.3) mg/dL (units unknown) (unknown) (unknown) (no date) (unknown) (unknown) Total Protein (6.3-8.2) g/dL (units unknown) (unknown) (unknown) (no date) (unknown) (unknown) Total Protein 6.4 (6.3-8.2) g/dL (units unknown) (unknown) (unknown) (no date) (unknown) (unknown) UA Complete [Urinalysis and Microscopic] Stat (units unknown) (unknown) (unknown) (no date) (unknown) (unknown) UTI (urinary tract infection) (units unknown) (unknown) (unknown) (no date) (unknown) (unknown) UTI. No evidence of sepsis she is a normal lactate normal WBC electrolytes are (units unknown) (unknown) (unknown) (no date) (unknown) (unknown) Ur Culture Indicated ? Specimen cultured (units unknown) (unknown) (unknown) (no date) (unknown) (unknown) Ur Culture Indicated? (units unknown) (unknown) (unknown) (no date) (unknown) (unknown) Ur Leukocyte [place] e (NEGATIVE) (units unknown) (unknown) (unknown) (no date) (unknown) (unknown) Ur Leukocyte [place] e 1+ H (NEGATIVE) (units unknown) (unknown) (unknown) (no date) (unknown) (unknown) Ur Specific [place] (1.000-1.035) (units unknown) (unknown) (unknown) (no date) (unknown) (unknown) Ur Specific [place] 1.025 (1.000-1.035) (units unknown) (unknown) (unknown) (no date) (unknown) (unknown) Ur Squamous Epith Cells (0-5/HPF) (units unknown) (unknown) (unknown) (no date) (unknown) (unknown) Ur Squamous Epith Cells 1-5 /hpf D (0-5/HPF) (units unknown) (unknown) (unknown) (no date) (unknown) (unknown) Urine Appearance Cloudy (units unknown) (unknown) (unknown) (no date) (unknown) (unknown) Urine Appearance (units unknown) (unknown) (unknown) (no date) (unknown) (unknown) Urine Bacteria (None) (units unknown) (unknown) (unknown) (no date) (unknown) (unknown) Urine Bacteria Occasional (0-1) (None) (units unknown) (unknown) (unknown) (no date) (unknown) (unknown) Urine Bilirubin (NEGATIVE) (units unknown) (unknown) (unknown) (no date) (unknown) (unknown) Urine Bilirubin Negative (NEGATIVE) (units unknown) (unknown) (unknown) (no date) (unknown) (unknown) Urine Color Red (units unknown) (unknown) (unknown) (no date) (unknown) (unknown) Urine Color (units unknown) (unknown) (unknown) (no date) (unknown) (unknown) Urine Culture Stat (units unknown) (unknown) (unknown) (no date) (unknown) (unknown) Urine Dip (units unknown) (unknown) (unknown) (no date) (unknown) (unknown) Urine Glucose (UA) (Negative) g/dL (units unknown) (unknown) (unknown) (no date) (unknown) (unknown) Urine Glucose (UA) Negative (Negative) g/dL (units unknown) (unknown) (unknown) (no date) (unknown) (unknown) Urine Ketones (NEGATIVE) (units unknown) (unknown) (unknown) (no date) (unknown) (unknown) Urine Ketones Negative (NEGATIVE) (units unknown) (unknown) (unknown) (no date) (unknown) (unknown) Urine Nitrate (Negative) (units unknown) (unknown) (unknown) (no date) (unknown) (unknown) Urine Nitrate Negative (Negative) (units unknown) (unknown) (unknown) (no date) (unknown) (unknown) Urine Occult Blood (Negative) (units unknown) (unknown) (unknown) (no date) (unknown) (unknown) Urine Occult Blood 3 + H (Negative) (units unknown) (unknown) (unknown) (no date) (unknown) (unknown) Urine Protein (Negative) (units unknown) (unknown) (unknown) (no date) (unknown) (unknown) Urine Protein 1+ H (Negative) (units unknown) (unknown) (unknown) (no date) (unknown) (unknown) Urine RBC >100/hpf H (0-5/HPF) (units unknown) (unknown) (unknown) (no date) (unknown) (unknown) Urine RBC (0-5/HPF) (units unknown) (unknown) (unknown) (no date) (unknown) (unknown) Urine Specific [place] 1.020 (units unknown) (unknown) (unknown) (no date) (unknown) (unknown) Urine Urobilinogen (0.2) E.U./dL (units unknown) (unknown) (unknown) (no date) (unknown) (unknown) Urine Urobilinogen 1.0 (0.2) E.U./dL (units unknown) (unknown) (unknown) (no date) (unknown) (unknown) Urine WBC (0-5/HPF) (units unknown) (unknown) (unknown) (no date) (unknown) (unknown) Urine WBC 1-5/hpf (0-5/HPF) (units unknown) (unknown) (unknown) (no date) (unknown) (unknown) Urine pH (4.5-8.0) (units unknown) (unknown) (unknown) (no date) (unknown) (unknown) Urine pH 6.5 (4.5-8.0) (units unknown) (unknown) (unknown) (no date) (unknown) (unknown) [facility], CT, CT ABDOMEN PELVIS WITHOUT CONTRAST, 06/11/2022, 19:33.? (units unknown) (unknown) (unknown) (no date) (unknown) (unknown) [facility], MR, MR ABDOMEN MRCP, 06/12/2022, 10:50. (units unknown) (unknown) (unknown) (no date) (unknown) (unknown) Vessels and lymph nodes:? No abdominal aortic aneurysm or pathologic adenopathy (units unknown) (unknown) (unknown) (no date) (unknown) (unknown) Vital Signs - 8 hr (units unknown) (unknown) (unknown) (no date) (unknown) (unknown) Vital Signs (units unknown) (unknown) (unknown) (no date) (unknown) (unknown) Vital signs: (units unknown) (unknown) (unknown) (no date) (unknown) (unknown) WBC (4.5-11.0) X103/uL (units unknown) (unknown) (unknown) (no date) (unknown) (unknown) WBC 6.4 (4.5-11.0) X103/uL (units unknown) (unknown) (unknown) (no date) (unknown) (unknown) Christi Johnson , DNP, INFLATABLE BUILDINGS LAMINATOR [Primary Care Provider] (units unknown) (unknown) (unknown) (no date) (unknown) (unknown) [Embedded Image Not Available] (units unknown) (unknown) (unknown) (no date) (unknown) (unknown) [From BACTRIM] (units unknown) (unknown) (unknown) (no date) (unknown) (unknown) [IODINATED CONTRAST MEDIA (units unknown) (unknown) (unknown) (no date) (unknown) (unknown) [METOCLOPRAMIDE] (units unknown) (unknown) (unknown) (no date) (unknown) (unknown) [SHELLFISH DERIVED] (units unknown) (unknown) (unknown) (no date) (unknown) (unknown) abdominal cramping. She is found to have vaginal bleeding despite hysterectomy. (units unknown) (unknown) (unknown) (no date) (unknown) (unknown) about 14 (units unknown) (unknown) (unknown) (no date) (unknown) (unknown) according to (units unknown) (unknown) (unknown) (no date) (unknown) (unknown) actually was seen evaluated by her primary care provider yesterday she was (units unknown) (unknown) (unknown) (no date) (unknown) (unknown) adhesive [ADHESIVE] Allergy Mild Verified 04/22/22 14:44 (units unknown) (unknown) (unknown) (no date) (unknown) (unknown) alcohol intake frequency: holidays/special occasions only (units unknown) (unknown) (unknown) (no date) (unknown) (unknown) allergic to contrast , CT was done without contrast. No cause of her left lower (units unknown) (unknown) (unknown) (no date) (unknown) (unknown) amoxicillin [AMOXICILLIN] Allergy Mild Verified 04/22/22 14:44 (units unknown) (unknown) (unknown) (no date) (unknown) (unknown) appearance of the renal pyramids bilaterally. (units unknown) (unknown) (unknown) (no date) (unknown) (unknown) apply to single elbow, wrist or hand; for hand includes palm/fingers/back of (units unknown) (unknown) (unknown) (no date) (unknown) (unknown) being worked up by the patient she does have some galactorrhea possibly due to (units unknown) (unknown) (unknown) (no date) (unknown) (unknown) bleeding more than 2 super pads in 1 hour or any new, worsening or concerning (units unknown) (unknown) (unknown) (no date) (unknown) (unknown) by size (units unknown) (unknown) (unknown) (no date) (unknown) (unknown) cephalexin [CEPHALEXIN] Allergy Unknown Verified 04/22/22 14:44 (units unknown) (unknown) (unknown) (no date) (unknown) (unknown) chills. No flank pain. He is had multiple CTs previously. She was admitted at (units unknown) (unknown) (unknown) (no date) (unknown) (unknown) ciprofloxacin [CIPROFLOXACIN] Allergy Unknown Verified 04/22/22 14:44 (units unknown) (unknown) (unknown) (no date) (unknown) (unknown) clindamycin [CLINDAMYCIN] Allergy Unknown Verified 04/22/22 14:44 (units unknown) (unknown) (unknown) (no date) (unknown) (unknown) cm.? No adrenal nodules.? (units unknown) (unknown) (unknown) (no date) (unknown) (unknown) colonic (units unknown) (unknown) (unknown) (no date) (unknown) (unknown) coronal and sagittal reformats were then performed.? For radiation dose (units unknown) (unknown) (unknown) (no date) (unknown) (unknown) criteria. (units unknown) (unknown) (unknown) (no date) (unknown) (unknown) diazepam 10 mg table t 10 mg PO QID #120 tabs 10/12/21 (units unknown) (unknown) (unknown) (no date) (unknown) (unknown) diazepam 10 mg tablet (units unknown) (unknown) (unknown) (no date) (unknown) (unknown) diazepam 5 mg tablet (Valium) 5 mg PO TID PRN muscle spasm #10 10/19/21 (units unknown) (unknown) (unknown) (no date) (unknown) (unknown) diazepam [Valium] 5 mg tablet (units unknown) (unknown) (unknown) (no date) (unknown) (unknown) diclofenac sodium 1 % gel (units unknown) (unknown) (unknown) (no date) (unknown) (unknown) diclofenac sodium 1 % topical gel 2 g topical QID #100 grams 05/05/22 (units unknown) (unknown) (unknown) (no date) (unknown) (unknown) dilation of (units unknown) (unknown) (unknown) (no date) (unknown) (unknown) distress. (units unknown) (unknown) (unknown) (no date) (unknown) (unknown) diverticula.? No abscess or pathologic ascites. (units unknown) (unknown) (unknown) (no date) (unknown) (unknown) doxycycline [DOXYCYCLINE] Allergy Mild Verified 04/22/22 14:44 (units unknown) (unknown) (unknown) (no date) (unknown) (unknown) epinephrine 0.3 mg/0.3 mL See Rx Instructions .Route 02/27/22 (units unknown) (unknown) (unknown) (no date) (unknown) (unknown) epinephrine 0.3 mg/0.3 mL auto-injector (units unknown) (unknown) (unknown) (no date) (unknown) (unknown) evaluated on CT, consider ultrasound correlation if needed. (units unknown) (unknown) (unknown) (no date) (unknown) (unknown) follow-up with your [facility] in regards to other ongoing problem (units unknown) (unknown) (unknown) (no date) (unknown) (unknown) following was used:? automated exposure control, adjustment of mA and/or kV (units unknown) (unknown) (unknown) (no date) (unknown) (unknown) gastritis. She can not have NSAIDs. She is taking oxycodone. (units unknown) (unknown) (unknown) (no date) (unknown) (unknown) given any further pain medication. She reports that for UTI Levaquin is only 1 (units unknown) (unknown) (unknown) (no date) (unknown) (unknown) hand (units unknown) (unknown) (unknown) (no date) (unknown) (unknown) has opened. However patient reports that she only started bleeding 2 days ago. (units unknown) (unknown) (unknown) (no date) (unknown) (unknown) having galactorrhea which started 2 days ago. She says this is persisting. She (units unknown) (unknown) (unknown) (no date) (unknown) (unknown) household members: spouse and children (units unknown) (unknown) (unknown) (no date) (unknown) (unknown) hydrocodone Allergy Mild rash Verified 04/22/22 14:44 (units unknown) (unknown) (unknown) (no date) (unknown) (unknown) hydronephrosis.? Nonspecific trace hyperattenuating appearance of the renal (units unknown) (unknown) (unknown) (no date) (unknown) (unknown) injection, auto-injector .COMPLEX #2 ea (units unknown) (unknown) (unknown) (no date) (unknown) (unknown) intact (units unknown) (unknown) (unknown) (no date) (unknown) (unknown) iodine [IODINE] Allergy Mild Verified 04/22/22 14:44 (units unknown) (unknown) (unknown) (no date) (unknown) (unknown) is metoclopramide Phenergan and oxycodone all which increase and (units unknown) (unknown) (unknown) (no date) (unknown) (unknown) lamotrigine 200 mg tablet 200 mg PO DAILY #30 tabs 01/18/22 (units unknown) (unknown) (unknown) (no date) (unknown) (unknown) lamotrigine 200 mg tablet (units unknown) (unknown) (unknown) (no date) (unknown) (unknown) latex [LATEX] Allerg y Unknown Verified 04/22/22 14:44 (units unknown) (unknown) (unknown) (no date) (unknown) (unknown) left ovary, with decreased size of previously seen cyst, reproductive organs are (units unknown) (unknown) (unknown) (no date) (unknown) (unknown) levofloxacin 500 mg tablet 500 mg PO DAILY 3 days #3 tabs 11/16/22 (units unknown) (unknown) (unknown) (no date) (unknown) (unknown) levofloxacin 500 mg tablet (units unknown) (unknown) (unknown) (no date) (unknown) (unknown) lidocaine AdvReac Palpitation Verified 04/22/22 14:44 (units unknown) (unknown) (unknown) (no date) (unknown) (unknown) lives independently: Yes (units unknown) (unknown) (unknown) (no date) (unknown) (unknown) marital status: (units unknown) (unknown) (unknown) (no date) (unknown) (unknown) medication versus other. Her PCP is ordering more tests. Overall she appears (units unknown) (unknown) (unknown) (no date) (unknown) (unknown) membranes (units unknown) (unknown) (unknown) (no date) (unknown) (unknown) metformin 500 mg tablet 500 mg PO BID #60 tabs 02/21/22 (units unknown) (unknown) (unknown) (no date) (unknown) (unknown) metformin 500 mg tablet (units unknown) (unknown) (unknown) (no date) (unknown) (unknown) metoclopramide Allergy Mild Verified 04/22/22 14:44 (units unknown) (unknown) (unknown) (no date) (unknown) (unknown) mg tablet (Percocet) (units unknown) (unknown) (unknown) (no date) (unknown) (unknown) multiple EGDs, e history of vaginal bleeding despite hysterectomy, presents (units unknown) (unknown) (unknown) (no date) (unknown) (unknown) neuroleptic seizures , PTSD depression, erosive gastritis causing hematemesis (units unknown) (unknown) (unknown) (no date) (unknown) (unknown) not well (units unknown) (unknown) (unknown) (no date) (unknown) (unknown) occupational status: employed (units unknown) (unknown) (unknown) (no date) (unknown) (unknown) oxycodone 10 mg tablet 5 mg PO Q6H PRN pain #14 tabs 05/05/22 (units unknown) (unknown) (unknown) (no date) (unknown) (unknown) oxycodone 10 mg tablet (units unknown) (unknown) (unknown) (no date) (unknown) (unknown) oxycodone-acetaminop h en 5 mg-325 1 tab PO Q8H PRN pain #6 tabs 04/22/22 (units unknown) (unknown) (unknown) (no date) (unknown) (unknown) oxycodone-acetaminop h en [Percocet] 5-325 mg tablet (units unknown) (unknown) (unknown) (no date) (unknown) (unknown) patient size.? (units unknown) (unknown) (unknown) (no date) (unknown) (unknown) prolactin levels. Sh e apparently does have vaginal bleeding there is a known (units unknown) (unknown) (unknown) (no date) (unknown) (unknown) pyramids is (units unknown) (unknown) (unknown) (no date) (unknown) (unknown) quadrant pain is identified. She is multiple other issues that are currently (units unknown) (unknown) (unknown) (no date) (unknown) (unknown) quetiapine 100 mg tablet 100 mg PO BEDTIME 02/27/22 02/27/22 (units unknown) (unknown) (unknown) (no date) (unknown) (unknown) quetiapine 100 mg tablet (units unknown) (unknown) (unknown) (no date) (unknown) (unknown) quetiapine 25 mg tablet See Rx Instructions PO BEDTIME #45 01/18/22 (units unknown) (unknown) (unknown) (no date) (unknown) (unknown) quetiapine 25 mg tablet (units unknown) (unknown) (unknown) (no date) (unknown) (unknown) received per another provider. (units unknown) (unknown) (unknown) (no date) (unknown) (unknown) reduction, the (units unknown) (unknown) (unknown) (no date) (unknown) (unknown) s (units unknown) (unknown) (unknown) (no date) (unknown) (unknown) says have blood in her urine some leukocytes. No nitrates. Will treat for a (units unknown) (unknown) (unknown) (no date) (unknown) (unknown) sertraline 100 mg tablet 200 mg PO DAILY #60 tabs 01/18/22 (units unknown) (unknown) (unknown) (no date) (unknown) (unknown) sertraline 100 mg tablet (units unknown) (unknown) (unknown) (no date) (unknown) (unknown) shellfish derived Allergy Severe ANAPHYLAXIS Verified 04/22/22 14:44 (units unknown) (unknown) (unknown) (no date) (unknown) (unknown) small opening in the cuff of her hysterectomy as identified her surgeon when she (units unknown) (unknown) (unknown) (no date) (unknown) (unknown) sometimes associated with nephrocalcinosis. (units unknown) (unknown) (unknown) (no date) (unknown) (unknown) started lactating sh e started vaginal bleeding again. She denies fever or (units unknown) (unknown) (unknown) (no date) (unknown) (unknown) sulfamethoxazole Allergy Mild RASH Verified 04/22/22 14:44 (units unknown) (unknown) (unknown) (no date) (unknown) (unknown) symptoms (units unknown) (unknown) (unknown) (no date) (unknown) (unknown) tabs (units unknown) (unknown) (unknown) (no date) (unknown) (unknown) that works. She has no sign of sepsis she can start antibiotic tomorrow. (units unknown) (unknown) (unknown) (no date) (unknown) (unknown) the biliary tree or pancreatic duct.? Similar borderline splenomegaly, measuring (units unknown) (unknown) (unknown) (no date) (unknown) (unknown) tobacco type: vaping (units unknown) (unknown) (unknown) (no date) (unknown) (unknown) today with left lowe r quadrant pain nausea vomiting in vaginal bleeding. She (units unknown) (unknown) (unknown) (no date) (unknown) (unknown) tramadol 50 mg table t 100 mg PO BID PRN severe pain 03/22/22 (units unknown) (unknown) (unknown) (no date) (unknown) (unknown) tramadol 50 mg tablet (units unknown) (unknown) (unknown) (no date) (unknown) (unknown) trazodone 100 mg tablet See Rx Instructions .Route 04/25/22 (units unknown) (unknown) (unknown) (no date) (unknown) (unknown) trazodone 100 mg tablet (units unknown) (unknown) (unknown) (no date) (unknown) (unknown) trimethoprim [From BACTRIM] Allergy Mild RASH Verified 04/22/22 14:44 (units unknown) (unknown) (unknown) (no date) (unknown) (unknown) well. She is given 1 dose of Dilaudid she understands that she will not be (units unknown) (unknown) (unknown) (no date) (unknown) (unknown) within normal limits . Patient had CT does not show any abnormality. She is (units unknown) (unknown) Result panel 352 (unknown) (no date) (unknown) (unknown) (no value) (units unknown) (unknown) (unknown) (no date) (unknown) (unknown) Mixed gram + yuliet. Deemed unsuitable for further studies. (units unknown) (unknown) Result panel 353 (unknown) (no date) (unknown) (unknown) (no value) (units unknown) (unknown) (unknown) (no date) (unknown) (unknown) Mixed gram + yuliet. Deemed unsuitable for further studies. (units unknown) (unknown) (unknown) (no date) (unknown) (unknown) Very Early Growth: Culture too young for work-up reincubated (units unknown) (unknown) Result panel 354 (unknown) (no date) (unknown) (unknown) (no value) (units unknown) (unknown) (unknown) (no date) (unknown) (unknown) >=16 (units unknown) (unknown) (unknown) (no date) (unknown) (unknown) <=0.12 (units unknown) (unknown) (unknown) (no date) (unknown) (unknown) <=0.25 (units unknown) (unknown) (unknown) (no date) (unknown) (unknown) <=0.5 (units unknown) (unknown) (unknown) (no date) (unknown) (unknown) 1 (units unknown) (unknown) (unknown) (no date) (unknown) (unknown) 10,000 - 20,000 cfu/ml (unknown) (unknown) (no date) (unknown) (unknown) 2 (units unknown) (unknown) (unknown) (no date) (unknown) (unknown) All Beta-hemolytic Streptococcus organisms are considered (units unknown) (unknown) (unknown) (no date) (unknown) (unknown) LIGHT GROWTH MIXED NORMAL YULIET PRESENT (units unknown) (unknown) (unknown) (no date) (unknown) (unknown) Mixed gram + yuliet. Deemed unsuitable for further studies. (units unknown) (unknown) (unknown) (no date) (unknown) (unknown) No Further Workup (units unknown) (unknown) (unknown) (no date) (unknown) (unknown) STRAGAStrep agalactiae - (group b) (units unknown) (unknown) (unknown) (no date) (unknown) (unknown) sensitive to penicillins and cephalosporins. (units unknown) (unknown) Result panel 355 (unknown) (no date) (unknown) (unknown) (no value) (units unknown) (unknown) (unknown) (no date) (unknown) (unknown) #: [id number] (units unknown) (unknown) (unknown) (no date) (unknown) (unknown) 11/21/22 (units unknown) (unknown) (unknown) (no date) (unknown) (unknown) 1. Mild superior subluxation of AC joint suggesting grade 2 AC separation. (units unknown) (unknown) (unknown) (no date) (unknown) (unknown) [address] [place] [address] (units unknown) (unknown) (unknown) (no date) (unknown) (unknown) 2. Intact glenohumeral joint. (units unknown) (unknown) (unknown) (no date) (unknown) (unknown) Accession Number: [id number] (units unknown) (unknown) (unknown) (no date) (unknown) (unknown) Accession Number: [id number] (units unknown) (unknown) (unknown) (no date) (unknown) (unknown) Age/Sex: 27 / F Date of Service: (units unknown) (unknown) (unknown) (no date) (unknown) (unknown) [place] [id number] (units unknown) (unknown) (unknown) (no date) (unknown) (unknown) Approved by: Mercy Gil M.D. on 11/21/2022 at 17:01 (units unknown) (unknown) (unknown) (no date) (unknown) (unknown) Approved by: Zaida Aceves M.D. on 11/21/2022 at 16:54 (units unknown) (unknown) (unknown) (no date) (unknown) (unknown) Bones and chest wall : No suspicious bony lesions. Overlying soft tissues (units unknown) (unknown) (unknown) (no date) (unknown) (unknown) Bones: Mild superior subluxation of the distal clavicle at the AC joint without (units unknown) (unknown) (unknown) (no date) (unknown) (unknown) COMPARISON: [facility], CR, XR CHEST 1V, 06/28/2020, 15:14. (units unknown) (unknown) (unknown) (no date) (unknown) (unknown) COMPARISON: [facility], CR, XR SHOULDER RT MIN 2V, 05/05/2022, 17:39. (units unknown) (unknown) (unknown) (no date) (unknown) (unknown) : 1995 Acct:[id number] (units unknown) (unknown) (unknown) (no date) (unknown) (unknown) Dictated by: Mercy Gil M.D. on 11/21/2022 at 16:59 (units unknown) (unknown) (unknown) (no date) (unknown) (unknown) Dictated by: Zaida Aceves M.D. on 11/21/2022 at 16:54 (units unknown) (unknown) (unknown) (no date) (unknown) (unknown) FINDINGS: (units unknown) (unknown) (unknown) (no date) (unknown) (unknown) [facility], CR, XR CHEST 1V, 11/21/2022, 16:20. (units unknown) (unknown) (unknown) (no date) (unknown) (unknown) IMPRESSION: No acute pulmonary process. (units unknown) (unknown) (unknown) (no date) (unknown) (unknown) IMPRESSION: (units unknown) (unknown) (unknown) (no date) (unknown) (unknown) INDICATIONS: chest pain (units unknown) (unknown) (unknown) (no date) (unknown) (unknown) INDICATIONS: syncopa l episode/L shoulder pain/poss dislocation (units unknown) (unknown) (unknown) (no date) (unknown) (unknown) [facility] (units unknown) (unknown) (unknown) (no date) (unknown) (unknown) [facility] (units unknown) (unknown) (unknown) (no date) (unknown) (unknown) Loc: ED (units unknown) (unknown) (unknown) (no date) (unknown) (unknown) Lungs and pleura: Lungs are clear. No pleural effusions or pneumothorax. (units unknown) (unknown) (unknown) (no date) (unknown) (unknown) Mediastinum: Mediastinal contours appear normal. Heart size is normal. (units unknown) (unknown) (unknown) (no date) (unknown) (unknown) Ordering Provider: Shai Baron D.O. (units unknown) (unknown) (unknown) (no date) (unknown) (unknown) PROCEDURE: XR CHEST 1V (units unknown) (unknown) (unknown) (no date) (unknown) (unknown) PROCEDURE: XR SHOULDER LT MIN 2V (units unknown) (unknown) (unknown) (no date) (unknown) (unknown) Patient: Calin Jorgensen MR (units unknown) (unknown) (unknown) (no date) (unknown) (unknown) Procedure: XR chest 1V (units unknown) (unknown) (unknown) (no date) (unknown) (unknown) Procedure: XR shoulder LT min 2V (units unknown) (unknown) (unknown) (no date) (unknown) (unknown) Recommend (units unknown) (unknown) (unknown) (no date) (unknown) (unknown) Signed (units unknown) (unknown) (unknown) (no date) (unknown) (unknown) Soft tissues: No suspicious soft tissue calcifications. (units unknown) (unknown) (unknown) (no date) (unknown) (unknown) Surgical changes and devices: None. (units unknown) (unknown) (unknown) (no date) (unknown) (unknown) TECHNIQUE: One view of the chest was acquired. (units unknown) (unknown) (unknown) (no date) (unknown) (unknown) TECHNIQUE: To views of the shoulder were acquired. (units unknown) (unknown) (unknown) (no date) (unknown) (unknown) Visualized ribs (units unknown) (unknown) (unknown) (no date) (unknown) (unknown) XRay Report (units unknown) (unknown) (unknown) (no date) (unknown) (unknown) appear intact. (units unknown) (unknown) (unknown) (no date) (unknown) (unknown) appear (units unknown) (unknown) (unknown) (no date) (unknown) (unknown) correlation with focal pain/tenderness. If clinically indicated, weight bearing (units unknown) (unknown) (unknown) (no date) (unknown) (unknown) of AC joint. No fractures or dislocations. No suspicious bony lesions. (units unknown) (unknown) (unknown) (no date) (unknown) (unknown) the clavicles may be obtained. (units unknown) (unknown) (unknown) (no date) (unknown) (unknown) unremarkable. (units unknown) (unknown) (unknown) (no date) (unknown) (unknown) view of (units unknown) (unknown) (unknown) (no date) (unknown) (unknown) widening (units unknown) (unknown) Result panel 356 (unknown) (no date) (unknown) (unknown) (no value) (units unknown) (unknown) (unknown) (no date) (unknown) (unknown) #: [id number] (units unknown) (unknown) (unknown) (no date) (unknown) (unknown) 11/21/22 (units unknown) (unknown) (unknown) (no date) (unknown) (unknown) 1. No acute intracranial process. (units unknown) (unknown) (unknown) (no date) (unknown) (unknown) [address] [place] [address] (units unknown) (unknown) (unknown) (no date) (unknown) (unknown) 12:18. (units unknown) (unknown) (unknown) (no date) (unknown) (unknown) Accession Number: [id number] (units unknown) (unknown) (unknown) (no date) (unknown) (unknown) Accession Number: [id number] (units unknown) (unknown) (unknown) (no date) (unknown) (unknown) Accession Number: [id number] (units unknown) (unknown) (unknown) (no date) (unknown) (unknown) Age/Sex: 27 / F Date of Service: (units unknown) (unknown) (unknown) (no date) (unknown) (unknown) [place] [id number] (units unknown) (unknown) (unknown) (no date) (unknown) (unknown) Approved by: Mercy Gil M.D. on 11/21/2022 at 17:02 (units unknown) (unknown) (unknown) (no date) (unknown) (unknown) Approved by: Zaida Aceves M.D. on 11/21/2022 at 16:51 (units unknown) (unknown) (unknown) (no date) (unknown) (unknown) Approved by: Zaida Aceves M.D. on 11/21/2022 at 16:52 (units unknown) (unknown) (unknown) (no date) (unknown) (unknown) Bones: No fractures or dislocations. No suspicious bony lesions. (units unknown) (unknown) (unknown) (no date) (unknown) (unknown) Bones: No fractures or dislocations. Visualized superior ribs are intact. (units unknown) (unknown) (unknown) (no date) (unknown) (unknown) Brain: No midline shift. No intracranial masses or hemorrhage. [place]-white (units unknown) (unknown) (unknown) (no date) (unknown) (unknown) COMPARISON: [facility], CR, ELBOW 3+ VIEWS LEFT, 07/19/2008, 15:34. [facility] (units unknown) (unknown) (unknown) (no date) (unknown) (unknown) COMPARISON: [facility], CT, CT CERVICAL SPINE WO CON, 04/22/2022, 15:07. (units unknown) (unknown) (unknown) (no date) (unknown) (unknown) COMPARISON: [facility], MR, MR BRAIN WITHOUT CONTRAST, 06/07/2022, (units unknown) (unknown) (unknown) (no date) (unknown) (unknown) CSF spaces: Basal cisterns are patent. No extra-axial fluid collections. (units unknown) (unknown) (unknown) (no date) (unknown) (unknown) CT Scan Report (units unknown) (unknown) (unknown) (no date) (unknown) (unknown) : 1995 Acct:[id number] (units unknown) (unknown) (unknown) (no date) (unknown) (unknown) Dictated by: Mercy Gil M.D. on 11/21/2022 at 17:01 (units unknown) (unknown) (unknown) (no date) (unknown) (unknown) Dictated by: Zaida Aceves M.D. on 11/21/2022 at 16:50 (units unknown) (unknown) (unknown) (no date) (unknown) (unknown) Dictated by: Zaida Aceves M.D. on 11/21/2022 at 16:51 (units unknown) (unknown) (unknown) (no date) (unknown) (unknown) FINDINGS: (units unknown) (unknown) (unknown) (no date) (unknown) (unknown) Film, CR, XR ELBOW 1 OR 2 VIEWS LEFT, 01/31/2022, 13:10. (units unknown) (unknown) (unknown) (no date) (unknown) (unknown) IMPRESSION: Mild reversal cervical curvature overall nonspecific. This could (units unknown) (unknown) (unknown) (no date) (unknown) (unknown) IMPRESSION: No acute osseous abnormality. If clinical symptoms persist or (units unknown) (unknown) (unknown) (no date) (unknown) (unknown) IMPRESSION: (units unknown) (unknown) (unknown) (no date) (unknown) (unknown) INDICATIONS: fall with elbow pain (units unknown) (unknown) (unknown) (no date) (unknown) (unknown) INDICATIONS: syncope with head injury (units unknown) (unknown) (unknown) (no date) (unknown) (unknown) INDICATIONS: syncope with head injury, distracting injury (units unknown) (unknown) (unknown) (no date) (unknown) (unknown) Image quality: Excellent. (units unknown) (unknown) (unknown) (no date) (unknown) (unknown) [facility] (units unknown) (unknown) (unknown) (no date) (unknown) (unknown) [facility], CT, CT HEAD/BRAIN WO CON, 05/05/2022, 17:43. (units unknown) (unknown) (unknown) (no date) (unknown) (unknown) Loc: ED (units unknown) (unknown) (unknown) (no date) (unknown) (unknown) Noncontrast 3 mm thick sections acquired from the skull base to the T4 level. (units unknown) (unknown) (unknown) (no date) (unknown) (unknown) Noncontrast 4.5 mm thick angled axial sections acquired from the foramen magnum (units unknown) (unknown) (unknown) (no date) (unknown) (unknown) Ordering Provider: Shai Baron D.O. (units unknown) (unknown) (unknown) (no date) (unknown) (unknown) Outside (units unknown) (unknown) (unknown) (no date) (unknown) (unknown) PROCEDURE: CT CERVICAL SPINE WO CON (units unknown) (unknown) (unknown) (no date) (unknown) (unknown) PROCEDURE: CT HEAD/BRAIN WO CON (units unknown) (unknown) (unknown) (no date) (unknown) (unknown) PROCEDURE: XR ELBOW LT MIN 3V (units unknown) (unknown) (unknown) (no date) (unknown) (unknown) Patient: Calin Jorgensen (units unknown) (unknown) (unknown) (no date) (unknown) (unknown) Procedure: CT cervical spine wo con (units unknown) (unknown) (unknown) (no date) (unknown) (unknown) Procedure: CT head/brain wo con (units unknown) (unknown) (unknown) (no date) (unknown) (unknown) Procedure: XR elbow LT min 3V (units unknown) (unknown) (unknown) (no date) (unknown) (unknown) Sagittal (units unknown) (unknown) (unknown) (no date) (unknown) (unknown) Signed (units unknown) (unknown) (unknown) (no date) (unknown) (unknown) Sinuses: Visualized sinuses and mastoids are clear. (units unknown) (unknown) (unknown) (no date) (unknown) (unknown) Skull and face: Calvarium and visualized facial bones are intact, without (units unknown) (unknown) (unknown) (no date) (unknown) (unknown) Soft tissues: No elbow joint effusion. No suspicious soft tissue (units unknown) (unknown) (unknown) (no date) (unknown) (unknown) Soft tissues: Prevertebral soft tissues are normal in thickness. No (units unknown) (unknown) (unknown) (no date) (unknown) (unknown) TECHNIQUE: 2 views o f the elbow were acquired. (units unknown) (unknown) (unknown) (no date) (unknown) (unknown) TECHNIQUE: (units unknown) (unknown) (unknown) (no date) (unknown) (unknown) There is (units unknown) (unknown) (unknown) (no date) (unknown) (unknown) Ventricles (units unknown) (unknown) (unknown) (no date) (unknown) (unknown) XRay Report (units unknown) (unknown) (unknown) (no date) (unknown) (unknown) and coronal reformat s were then constructed. For radiation dose reduction, the (units unknown) (unknown) (unknown) (no date) (unknown) (unknown) are normal in size and shape. (units unknown) (unknown) (unknown) (no date) (unknown) (unknown) be (units unknown) (unknown) (unknown) (no date) (unknown) (unknown) calcifications. (units unknown) (unknown) (unknown) (no date) (unknown) (unknown) clinical (units unknown) (unknown) (unknown) (no date) (unknown) (unknown) following (units unknown) (unknown) (unknown) (no date) (unknown) (unknown) hematomas. No apical pneumothoraces. (units unknown) (unknown) (unknown) (no date) (unknown) (unknown) imaging (units unknown) (unknown) (unknown) (no date) (unknown) (unknown) interface is normal. (units unknown) (unknown) (unknown) (no date) (unknown) (unknown) lesions. (units unknown) (unknown) (unknown) (no date) (unknown) (unknown) matter (units unknown) (unknown) (unknown) (no date) (unknown) (unknown) mild reversal cervical curvature. (units unknown) (unknown) (unknown) (no date) (unknown) (unknown) paravertebral (units unknown) (unknown) (unknown) (no date) (unknown) (unknown) patient (units unknown) (unknown) (unknown) (no date) (unknown) (unknown) positional. (units unknown) (unknown) (unknown) (no date) (unknown) (unknown) size. (units unknown) (unknown) (unknown) (no date) (unknown) (unknown) such as CT or MRI is suggested for further evaluation. (units unknown) (unknown) (unknown) (no date) (unknown) (unknown) suspicion for pathology is high, a repeat examination in 7-10 days, or advanced (units unknown) (unknown) (unknown) (no date) (unknown) (unknown) suspicious (units unknown) (unknown) (unknown) (no date) (unknown) (unknown) to the (units unknown) (unknown) (unknown) (no date) (unknown) (unknown) vertex, with coronal and sagittal reformats. For radiation dose reduction, the (units unknown) (unknown) (unknown) (no date) (unknown) (unknown) was used: automated exposure control, adjustment of mA and/or kV according to (units unknown) (unknown) Result panel 357 (unknown) (no date) (unknown) (unknown) 0 /ul (unknown) (unknown) (no date) (unknown) (unknown) 0.4 % (unknown) (unknown) (no date) (unknown) (unknown) 1.8 % (unknown) (unknown) (no date) (unknown) (unknown) 100 /ul (unknown) (unknown) (no date) (unknown) (unknown) 12.6 % (unknown) (unknown) (no date) (unknown) (unknown) 12.6 g/dl (unknown) (unknown) (no date) (unknown) (unknown) 197 x10 3/ul (unknown) (unknown) (no date) (unknown) (unknown) 2200 /ul (unknown) (unknown) (no date) (unknown) (unknown) 2300 /ul (unknown) (unknown) (no date) (unknown) (unknown) 30.9 pg (unknown) (unknown) (no date) (unknown) (unknown) 34.5 % (unknown) (unknown) (no date) (unknown) (unknown) 36.7 % (unknown) (unknown) (no date) (unknown) (unknown) 4.10 x10 6/ul (unknown) (unknown) (no date) (unknown) (unknown) 43.6 % (unknown) (unknown) (no date) (unknown) (unknown) 44.8 % (unknown) (unknown) (no date) (unknown) (unknown) 5.0 x10 3/ul (unknown) (unknown) (no date) (unknown) (unknown) 500 /ul (unknown) (unknown) (no date) (unknown) (unknown) 89.6 fl (unknown) (unknown) (no date) (unknown) (unknown) 9.4 % (unknown) Result panel 358 (unknown) (no date) (unknown) (unknown) 1.0 (units unknown) (unknown) (unknown) (no date) (unknown) (unknown) 12.0 seconds (unknown) Result panel 359 (unknown) (no date) (unknown) (unknown) 1.0 (units unknown) (unknown) (unknown) (no date) (unknown) (unknown) 12.0 seconds (unknown) (unknown) (no date) (unknown) (unknown) 26 seconds (unknown) (unknown) (no date) (unknown) (unknown) 26 seconds (unknown) Result panel 360 (unknown) (no date) (unknown) (unknown) > 60 ml/min (unknown) (unknown) (no date) (unknown) (unknown) > 60 ml/min (unknown) (unknown) (no date) (unknown) (unknown) 0.6 mg/dl (unknown) (unknown) (no date) (unknown) (unknown) 0.86 mg/dl (unknown) (unknown) (no date) (unknown) (unknown) 1.6 (units unknown) (unknown) (unknown) (no date) (unknown) (unknown) 1.9 mg/dl (unknown) (unknown) (no date) (unknown) (unknown) 101 mmol/l (unknown) (unknown) (no date) (unknown) (unknown) 136 mmol/l (unknown) (unknown) (no date) (unknown) (unknown) 15 iu/l (unknown) (unknown) (no date) (unknown) (unknown) 17 iu/l (unknown) (unknown) (no date) (unknown) (unknown) 18 mg/dl (unknown) (unknown) (no date) (unknown) (unknown) 2.6 g/dl (unknown) (unknown) (no date) (unknown) (unknown) 20.9 (units unknown) (unknown) (unknown) (no date) (unknown) (unknown) 29 mmol/l (unknown) (unknown) (no date) (unknown) (unknown) 37 u/l (unknown) (unknown) (no date) (unknown) (unknown) 4.1 g/dl (unknown) (unknown) (no date) (unknown) (unknown) 4.1 mmol/l (unknown) (unknown) (no date) (unknown) (unknown) 59 u/l (unknown) (unknown) (no date) (unknown) (unknown) 6.7 g/dl (unknown) (unknown) (no date) (unknown) (unknown) 8.7 mg/dl (unknown) (unknown) (no date) (unknown) (unknown) 81 mg/dl (unknown) (unknown) (no date) (unknown) (unknown) 81 mg/dl (unknown) (unknown) (no date) (unknown) (unknown) 98 u/l (unknown) (unknown) (no date) (unknown) (unknown) Test not performed % (unknown) (unknown) (no date) (unknown) (unknown) Test not performed % (unknown) (unknown) (no date) (unknown) (unknown) Test not performed ng/ml (unknown) (unknown) (no date) (unknown) (unknown) Test not performed ng/ml (unknown) Result panel 361 (unknown) (no date) (unknown) (unknown) 0.8 mmol/l (unknown) Result panel 362 (unknown) (no date) (unknown) (unknown) > 60 ml/min (unknown) (unknown) (no date) (unknown) (unknown) > 60 ml/min (unknown) (unknown) (no date) (unknown) (unknown) < 0.012 ng/ml (unknown) (unknown) (no date) (unknown) (unknown) < 0.012 ng/ml (unknown) (unknown) (no date) (unknown) (unknown) 0.6 mg/dl (unknown) (unknown) (no date) (unknown) (unknown) 0.86 mg/dl (unknown) (unknown) (no date) (unknown) (unknown) 1.6 (units unknown) (unknown) (unknown) (no date) (unknown) (unknown) 1.9 mg/dl (unknown) (unknown) (no date) (unknown) (unknown) 101 mmol/l (unknown) (unknown) (no date) (unknown) (unknown) 136 mmol/l (unknown) (unknown) (no date) (unknown) (unknown) 15 iu/l (unknown) (unknown) (no date) (unknown) (unknown) 17 iu/l (unknown) (unknown) (no date) (unknown) (unknown) 18 mg/dl (unknown) (unknown) (no date) (unknown) (unknown) 2.6 g/dl (unknown) (unknown) (no date) (unknown) (unknown) 20.9 (units unknown) (unknown) (unknown) (no date) (unknown) (unknown) 29 mmol/l (unknown) (unknown) (no date) (unknown) (unknown) 37 u/l (unknown) (unknown) (no date) (unknown) (unknown) 4.1 g/dl (unknown) (unknown) (no date) (unknown) (unknown) 4.1 mmol/l (unknown) (unknown) (no date) (unknown) (unknown) 59 u/l (unknown) (unknown) (no date) (unknown) (unknown) 6.7 g/dl (unknown) (unknown) (no date) (unknown) (unknown) 8.7 mg/dl (unknown) (unknown) (no date) (unknown) (unknown) 81 mg/dl (unknown) (unknown) (no date) (unknown) (unknown) 81 mg/dl (unknown) (unknown) (no date) (unknown) (unknown) 98 u/l (unknown) (unknown) (no date) (unknown) (unknown) Test not performed % (unknown) (unknown) (no date) (unknown) (unknown) Test not performed % (unknown) (unknown) (no date) (unknown) (unknown) Test not performed ng/ml (unknown) (unknown) (no date) (unknown) (unknown) Test not performed ng/ml (unknown) Result panel 363 (unknown) (no date) (unknown) (unknown) Negative (units unknown) (unknown) (unknown) (no date) (unknown) (unknown) Negative (units unknown) (unknown) Result panel 364 (unknown) (no date) (unknown) (unknown) (no value) (units unknown) (unknown) (unknown) (no date) (unknown) (unknown) (scale score 7-10) #60 tabs (units unknown) (unknown) (unknown) (no date) (unknown) (unknown) .COMPLEX #180 tabs (units unknown) (unknown) (unknown) (no date) (unknown) (unknown) 11/21/22 11/21/22 11/21/22 Range/Units (units unknown) (unknown) (unknown) (no date) (unknown) (unknown) 11/21/22 11/21/22 Range/Units (units unknown) (unknown) (unknown) (no date) (unknown) (unknown) 11/21/22 16:11 (units unknown) (unknown) (unknown) (no date) (unknown) (unknown) 11/21/22 16:12 (units unknown) (unknown) (unknown) (no date) (unknown) (unknown) 11/21/22 16:13 (units unknown) (unknown) (unknown) (no date) (unknown) (unknown) 11/21/22 16:15 (units unknown) (unknown) (unknown) (no date) (unknown) (unknown) 11/21/22 16:20 (units unknown) (unknown) (unknown) (no date) (unknown) (unknown) 11/21/22 (units unknown) (unknown) (unknown) (no date) (unknown) (unknown) 1 tab PO Q8H PRN (Reason: pain) Qty: 6 0RF (units unknown) (unknown) (unknown) (no date) (unknown) (unknown) 10 mg PO QID Qty: 12 0 2RF (units unknown) (unknown) (unknown) (no date) (unknown) (unknown) 100 mg PO BEDTIME (units unknown) (unknown) (unknown) (no date) (unknown) (unknown) 100 mg PO BID PRN (Reason: severe pain (scale score 7-10)) Qty: 60 0RF (units unknown) (unknown) (unknown) (no date) (unknown) (unknown) 15:57 (units unknown) (unknown) (unknown) (no date) (unknown) (unknown) 16:15 16:15 16:15 (units unknown) (unknown) (unknown) (no date) (unknown) (unknown) 16:15 16:15 (units unknown) (unknown) (unknown) (no date) (unknown) (unknown) 2 g topical QID Qty: 100 3RF (units unknown) (unknown) (unknown) (no date) (unknown) (unknown) 200 mg PO DAILY Qty: 30 2RF (units unknown) (unknown) (unknown) (no date) (unknown) (unknown) 200 mg PO DAILY Qty: 60 2RF (units unknown) (unknown) (unknown) (no date) (unknown) (unknown) 5 mg PO Q6H PRN (Reason: pain) Qty: 14 0RF (units unknown) (unknown) (unknown) (no date) (unknown) (unknown) 5 mg PO TID PRN (Reason: muscle spasm) Qty: 10 0RF (units unknown) (unknown) (unknown) (no date) (unknown) (unknown) 500 mg PO BID Qty: 6 0 0RF (units unknown) (unknown) (unknown) (no date) (unknown) (unknown) : [id number] (units unknown) (unknown) (unknown) (no date) (unknown) (unknown) ALT (<35) IU/L (units unknown) (unknown) (unknown) (no date) (unknown) (unknown) ALT 15 (<35) IU/L (units unknown) (unknown) (unknown) (no date) (unknown) (unknown) APTT (26-36) SECONDS (units unknown) (unknown) (unknown) (no date) (unknown) (unknown) APTT 26 (26-36) SECONDS (units unknown) (unknown) (unknown) (no date) (unknown) (unknown) AST (14-36) IU/L (units unknown) (unknown) (unknown) (no date) (unknown) (unknown) AST 17 (14-36) IU/L (units unknown) (unknown) (unknown) (no date) (unknown) (unknown) Age/Sex: 27 / F (units unknown) (unknown) (unknown) (no date) (unknown) (unknown) Albumin (3.5-5.0) g/dL (units unknown) (unknown) (unknown) (no date) (unknown) (unknown) Albumin 4.1 (3.5-5.0 ) g/dL (units unknown) (unknown) (unknown) (no date) (unknown) (unknown) Albumin/Globulin Ratio (1.0-2.8) (units unknown) (unknown) (unknown) (no date) (unknown) (unknown) Albumin/Globulin Ratio 1.6 (1.0-2.8) (units unknown) (unknown) (unknown) (no date) (unknown) (unknown) Alkaline Phosphatase (38-126) U/L (units unknown) (unknown) (unknown) (no date) (unknown) (unknown) Alkaline Phosphatase 37 L (38-126) U/L (units unknown) (unknown) (unknown) (no date) (unknown) (unknown) Allergies (units unknown) (unknown) (unknown) (no date) (unknown) (unknown) Allergy/AdvReac Type Severity Reaction Status Date / Time 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 (units unknown) (unknown) (unknown) (no date) (unknown) (unknown) BUN (7-17) mg/dL (units unknown) (unknown) (unknown) (no date) (unknown) (unknown) BUN 18 H (7-17) mg/dL (units unknown) (unknown) (unknown) (no date) (unknown) (unknown) BUN/Creatinine Ratio (6-22) (units unknown) (unknown) (unknown) (no date) (unknown) (unknown) BUN/Creatinine Ratio 20.9 (6-22) (units unknown) (unknown) (unknown) (no date) (unknown) (unknown) Baso # (Auto) (0-100 ) /uL (units unknown) (unknown) (unknown) (no date) (unknown) (unknown) Baso # (Auto) 0 (0-100) /uL (units unknown) (unknown) (unknown) (no date) (unknown) (unknown) Baso % (Auto) (0-2) % (units unknown) (unknown) (unknown) (no date) (unknown) (unknown) Baso % (Auto) 0.4 (0-2) % (units unknown) (unknown) (unknown) (no date) (unknown) (unknown) Blood Pressure 123/6 8 11/21/22 15:57 (units unknown) (unknown) (unknown) (no date) (unknown) (unknown) Blood Pressure 123/68 (units unknown) (unknown) (unknown) (no date) (unknown) (unknown) Breast cancer (units unknown) (unknown) (unknown) (no date) (unknown) (unknown) CAD (coronary artery disease) (units unknown) (unknown) (unknown) (no date) (unknown) (unknown) CK-MB (CK-2) Rel Index TNP (units unknown) (unknown) (unknown) (no date) (unknown) (unknown) CK-MB (CK-2) Rel Index (units unknown) (unknown) (unknown) (no date) (unknown) (unknown) CK-MB (CK-2) TNP (units unknown) (unknown) (unknown) (no date) (unknown) (unknown) CK-MB (CK-2) (units unknown) (unknown) (unknown) (no date) (unknown) (unknown) COVID19 -Nasal RAPID Stat (units unknown) (unknown) (unknown) (no date) (unknown) (unknown) CT cervical spine wo con Stat (units unknown) (unknown) (unknown) (no date) (unknown) (unknown) CT head/brain wo con Stat (units unknown) (unknown) (unknown) (no date) (unknown) (unknown) Calcium (8.4-10.2) mg/dL (units unknown) (unknown) (unknown) (no date) (unknown) (unknown) Calcium 8.7 (8.4-10.2) mg/dL (units unknown) (unknown) (unknown) (no date) (unknown) (unknown) Carbon Dioxide (22-32) mmol/L (units unknown) (unknown) (unknown) (no date) (unknown) (unknown) Carbon Dioxide 29 (22-32) mmol/L (units unknown) (unknown) (unknown) (no date) (unknown) (unknown) Chief complaint: Syncope (units unknown) (unknown) (unknown) (no date) (unknown) (unknown) Chloride (98-107) mmol/L (units unknown) (unknown) (unknown) (no date) (unknown) (unknown) Chloride 101 (98-107 ) mmol/L (units unknown) (unknown) (unknown) (no date) (unknown) (unknown) Complete Blood Count AUTO DIFF Stat (units unknown) (unknown) (unknown) (no date) (unknown) (unknown) Comprehensive Metabolic Panel Stat (units unknown) (unknown) (unknown) (no date) (unknown) (unknown) Contract void and provider will offer no further tramadol refills if tramadol (units unknown) (unknown) (unknown) (no date) (unknown) (unknown) Course (units unknown) (unknown) (unknown) (no date) (unknown) (unknown) Creatinine (0.52-1.04) mg/dL (units unknown) (unknown) (unknown) (no date) (unknown) (unknown) Creatinine 0.86 (0.52-1.04) mg/dL (units unknown) (unknown) (unknown) (no date) (unknown) (unknown) : 1995 Acct:[id number] (units unknown) (unknown) (unknown) (no date) (unknown) (unknown) Date of Service: 11/21/22 (units unknown) (unknown) (unknown) (no date) (unknown) (unknown) Departure (units unknown) (unknown) (unknown) (no date) (unknown) (unknown) Discharge Plan (units unknown) (unknown) (unknown) (no date) (unknown) (unknown) Discontinued Medications (units unknown) (unknown) (unknown) (no date) (unknown) (unknown) Documented By: MLM (units unknown) (unknown) (unknown) (no date) (unknown) (unknown) Dose Instruction: (units unknown) (unknown) (unknown) (no date) (unknown) (unknown) ED Orders (units unknown) (unknown) (unknown) (no date) (unknown) (unknown) EKG-12 Lead Stat (units unknown) (unknown) (unknown) (no date) (unknown) (unknown) ER Physician: Shai Baron D.O. (units unknown) (unknown) (unknown) (no date) (unknown) (unknown) Emergency Report (units unknown) (unknown) (unknown) (no date) (unknown) (unknown) Endometriosis (units unknown) (unknown) (unknown) (no date) (unknown) (unknown) Eos # (Auto) (0-450) /uL (units unknown) (unknown) (unknown) (no date) (unknown) (unknown) Eos # (Auto) 100 (0-450) /uL (units unknown) (unknown) (unknown) (no date) (unknown) (unknown) Eos % (Auto) (2-4) % (units unknown) (unknown) (unknown) (no date) (unknown) (unknown) Eos % (Auto) 1.8 L (2-4) % (units unknown) (unknown) (unknown) (no date) (unknown) (unknown) Estimated GFR > 60 (>60) mL/min (units unknown) (unknown) (unknown) (no date) (unknown) (unknown) Estimated GFR (>60) mL/min (units unknown) (unknown) (unknown) (no date) (unknown) (unknown) Exam (units unknown) (unknown) (unknown) (no date) (unknown) (unknown) Family History (units unknown) (unknown) (unknown) (no date) (unknown) (unknown) General (units unknown) (unknown) (unknown) (no date) (unknown) (unknown) Globulin (1.7-4.1) g/dL (units unknown) (unknown) (unknown) (no date) (unknown) (unknown) Globulin 2.6 (1.7-4.1) g/dL (units unknown) (unknown) (unknown) (no date) (unknown) (unknown) Glucose (70-100) mg/dL (units unknown) (unknown) (unknown) (no date) (unknown) (unknown) Glucose 81 (70-100) mg/dL (units unknown) (unknown) (unknown) (no date) (unknown) (unknown) Grandmother Ovarian cancer (units unknown) (unknown) (unknown) (no date) (unknown) (unknown) H/O unilateral oophorectomy () (units unknown) (unknown) (unknown) (no date) (unknown) (unknown) H/O: hysterectomy (units unknown) (unknown) (unknown) (no date) (unknown) (unknown) HPI - General Adult (units unknown) (unknown) (unknown) (no date) (unknown) (unknown) Hct (36-46) % (units unknown) (unknown) (unknown) (no date) (unknown) (unknown) Hct 36.7 (36-46) % (units unknown) (unknown) (unknown) (no date) (unknown) (unknown) Hematuria (units unknown) (unknown) (unknown) (no date) (unknown) (unknown) Hgb (12.0-16.0) g/dL (units unknown) (unknown) (unknown) (no date) (unknown) (unknown) Hgb 12.6 (12.0-16.0) g/dL (units unknown) (unknown) (unknown) (no date) (unknown) (unknown) History of ureter stent (units unknown) (unknown) (unknown) (no date) (unknown) (unknown) Hold Instructions: NEEDS TO SEE NEUROLOGY (units unknown) (unknown) (unknown) (no date) (unknown) (unknown) Hold Instructions: SEEN BY PSYCHIATRY (units unknown) (unknown) (unknown) (no date) (unknown) (unknown) Home Medications (units unknown) (unknown) (unknown) (no date) (unknown) (unknown) Hyperlipidemia (units unknown) (unknown) (unknown) (no date) (unknown) (unknown) Hypertension (units unknown) (unknown) (unknown) (no date) (unknown) (unknown) INJECT INTRAMUSCULARLY EVERY 20 MINUTES NEEDED FOR ANAPHYLAXIS UNTIL (units unknown) (unknown) (unknown) (no date) (unknown) (unknown) INR (0.9-1.3) (units unknown) (unknown) (unknown) (no date) (unknown) (unknown) INR 1.0 (0.9-1.3) (units unknown) (unknown) (unknown) (no date) (unknown) (unknown) IV DYE] (units unknown) (unknown) (unknown) (no date) (unknown) (unknown) Initial Vital Signs (units unknown) (unknown) (unknown) (no date) (unknown) (unknown) Initial Vital Signs: (units unknown) (unknown) (unknown) (no date) (unknown) (unknown) Iodinated Contrast Media Allergy Unknown Verified 11/21/22 16:09 (units unknown) (unknown) (unknown) (no date) (unknown) (unknown) [address] [address] (units unknown) (unknown) (unknown) (no date) (unknown) (unknown) Lab Data (units unknown) (unknown) (unknown) (no date) (unknown) (unknown) Lab Results (units unknown) (unknown) (unknown) (no date) (unknown) (unknown) Labs: (units unknown) (unknown) (unknown) (no date) (unknown) (unknown) Lactate (0.7-2.1) mmol/L (units unknown) (unknown) (unknown) (no date) (unknown) (unknown) Lactate (Lactic Acid ) Stat (units unknown) (unknown) (unknown) (no date) (unknown) (unknown) Lactate 0.8 (0.7-2.1 ) mmol/L (units unknown) (unknown) (unknown) (no date) (unknown) (unknown) Last Admin: 11/21/22 16:50 Dose: 40 mg (units unknown) (unknown) (unknown) (no date) (unknown) (unknown) Last Admin: 11/21/22 17:45 Dose: 2 tab (units unknown) (unknown) (unknown) (no date) (unknown) (unknown) Limit as possible. Prescribed per 03/21 signed pain management contract. (units unknown) (unknown) (unknown) (no date) (unknown) (unknown) Lipase (23-300) U/L (units unknown) (unknown) (unknown) (no date) (unknown) (unknown) Lipase 98 (23-300) U/L (units unknown) (unknown) (unknown) (no date) (unknown) (unknown) Lipase Stat (units unknown) (unknown) (unknown) (no date) (unknown) (unknown) Lymph # (Auto) (7735-4914) /uL (units unknown) (unknown) (unknown) (no date) (unknown) (unknown) Lymph # (Auto) 2200 (4488-3494) /uL (units unknown) (unknown) (unknown) (no date) (unknown) (unknown) Lymph % (Auto) (25-40) % (units unknown) (unknown) (unknown) (no date) (unknown) (unknown) Lymph % (Auto) 43.6 H (25-40) % (units unknown) (unknown) (unknown) (no date) (unknown) (unknown) MCH (26-34) PG (units unknown) (unknown) (unknown) (no date) (unknown) (unknown) MCH 30.9 (26-34) PG (units unknown) (unknown) (unknown) (no date) (unknown) (unknown) MCHC (30-36) % (units unknown) (unknown) (unknown) (no date) (unknown) (unknown) MCHC 34.5 (30-36) % (units unknown) (unknown) (unknown) (no date) (unknown) (unknown) MCV (80-100) fL (units unknown) (unknown) (unknown) (no date) (unknown) (unknown) MCV 89.6 (80-100) fL (units unknown) (unknown) (unknown) (no date) (unknown) (unknown) Magnesium (1.6-2.3) mg/dL (units unknown) (unknown) (unknown) (no date) (unknown) (unknown) Magnesium 1.9 (1.6-2.3) mg/dL (units unknown) (unknown) (unknown) (no date) (unknown) (unknown) Magnesium Stat (units unknown) (unknown) (unknown) (no date) (unknown) (unknown) Major depressive disorder (units unknown) (unknown) (unknown) (no date) (unknown) (unknown) Medical Decision Making (units unknown) (unknown) (unknown) (no date) (unknown) (unknown) Medical History (units unknown) (unknown) (unknown) (no date) (unknown) (unknown) Medication Instructions Recorded Confirmed (units unknown) (unknown) (unknown) (no date) (unknown) (unknown) Medication Instructions Recorded (units unknown) (unknown) (unknown) (no date) (unknown) (unknown) Mode of arrival: EMS (units unknown) (unknown) (unknown) (no date) (unknown) (unknown) [place] # (Auto) (0-900 ) /uL (units unknown) (unknown) (unknown) (no date) (unknown) (unknown) [place] # (Auto) 500 (0-900) /uL (units unknown) (unknown) (unknown) (no date) (unknown) (unknown) [place] % (Auto) (3-14) % (units unknown) (unknown) (unknown) (no date) (unknown) (unknown) [place] % (Auto) 9.4 (3-14) % (units unknown) (unknown) (unknown) (no date) (unknown) (unknown) Morbid obesity (units unknown) (unknown) (unknown) (no date) (unknown) (unknown) Mother BRCA positive (units unknown) (unknown) (unknown) (no date) (unknown) (unknown) Nephrolithiasis (-2018) (units unknown) (unknown) (unknown) (no date) (unknown) (unknown) Neut # (Auto) (1984-5012) /uL (units unknown) (unknown) (unknown) (no date) (unknown) (unknown) Neut # (Auto) 2300 (0359-3386) /uL (units unknown) (unknown) (unknown) (no date) (unknown) (unknown) Neut % (Auto) (50-75 ) % (units unknown) (unknown) (unknown) (no date) (unknown) (unknown) Neut % (Auto) 44.8 L (50-75) % (units unknown) (unknown) (unknown) (no date) (unknown) (unknown) No Action (units unknown) (unknown) (unknown) (no date) (unknown) (unknown) Ordered: (units unknown) (unknown) (unknown) (no date) (unknown) (unknown) Orders (units unknown) (unknown) (unknown) (no date) (unknown) (unknown) Ovarian cyst (units unknown) (unknown) (unknown) (no date) (unknown) (unknown) Oxycodone/Acetaminop h en (Oxycodone/Acetaminop hen 5/325 Tablet) 2 tab PO NOW ONE (units unknown) (unknown) (unknown) (no date) (unknown) (unknown) Oxygen Delivery Method Room Air 11/21/22 15:57 (units unknown) (unknown) (unknown) (no date) (unknown) (unknown) Oxygen Delivery Method Room Air (units unknown) (unknown) (unknown) (no date) (unknown) (unknown) PCOS (polycystic ovarian syndrome) (units unknown) (unknown) (unknown) (no date) (unknown) (unknown) PT (10.1-12.7) SECONDS (units unknown) (unknown) (unknown) (no date) (unknown) (unknown) PT 12.0 (10.1-12.7) SECONDS (units unknown) (unknown) (unknown) (no date) (unknown) (unknown) PTT Partial Thromboplastin Martinez Stat (units unknown) (unknown) (unknown) (no date) (unknown) (unknown) Pantoprazole Sodium (Pantoprazole 40 Mg Vial) 40 mg IV NOW ONE (units unknown) (unknown) (unknown) (no date) (unknown) (unknown) Patellar dislocation (units unknown) (unknown) (unknown) (no date) (unknown) (unknown) Patient History (units unknown) (unknown) (unknown) (no date) (unknown) (unknown) Patient: Calin Jorgensen MR# (units unknown) (unknown) (unknown) (no date) (unknown) (unknown) Pelvic congestion (2013) (units unknown) (unknown) (unknown) (no date) (unknown) (unknown) Penicillins [PENICILLINS] Allergy Mild Verified 11/21/22 16:09 (units unknown) (unknown) (unknown) (no date) (unknown) (unknown) Plt Count (150-400) X103/uL (units unknown) (unknown) (unknown) (no date) (unknown) (unknown) Plt Count 197 (150-400) X103/uL (units unknown) (unknown) (unknown) (no date) (unknown) (unknown) Potassium (3.4-5.1) mmol/L (units unknown) (unknown) (unknown) (no date) (unknown) (unknown) Potassium 4.1 (3.4-5.1) mmol/L (units unknown) (unknown) (unknown) (no date) (unknown) (unknown) Prescriptions: (units unknown) (unknown) (unknown) (no date) (unknown) (unknown) Previous Rx's (units unknown) (unknown) (unknown) (no date) (unknown) (unknown) Prothrombin Time INR Stat (units unknown) (unknown) (unknown) (no date) (unknown) (unknown) Psychogenic nonepileptic seizure (units unknown) (unknown) (unknown) (no date) (unknown) (unknown) Pulse Oximetry 100 11/21/22 15:57 (units unknown) (unknown) (unknown) (no date) (unknown) (unknown) Pulse Oximetry 100 (units unknown) (unknown) (unknown) (no date) (unknown) (unknown) Pulse Rate 57 L 11/21/22 15:57 (units unknown) (unknown) (unknown) (no date) (unknown) (unknown) Pulse Rate 57 L (units unknown) (unknown) (unknown) (no date) (unknown) (unknown) RBC (4.0-5.2) X106/uL (units unknown) (unknown) (unknown) (no date) (unknown) (unknown) RBC 4.10 (4.0-5.2) X106/uL (units unknown) (unknown) (unknown) (no date) (unknown) (unknown) RDW (11.6-14.8) % (units unknown) (unknown) (unknown) (no date) (unknown) (unknown) RDW 12.6 (11.6-14.8) % (units unknown) (unknown) (unknown) (no date) (unknown) (unknown) RESPONSE (units unknown) (unknown) (unknown) (no date) (unknown) (unknown) Referrals: (units unknown) (unknown) (unknown) (no date) (unknown) (unknown) Related Data (units unknown) (unknown) (unknown) (no date) (unknown) (unknown) Respiratory Rate 16 11/21/22 15:57 (units unknown) (unknown) (unknown) (no date) (unknown) (unknown) Respiratory Rate 16 (units unknown) (unknown) (unknown) (no date) (unknown) (unknown) Rx Instructions: (units unknown) (unknown) (unknown) (no date) (unknown) (unknown) SARS-CoV-2 (PCR) (Negative) (units unknown) (unknown) (unknown) (no date) (unknown) (unknown) SARS-CoV-2 (PCR) Negative (Negative) (units unknown) (unknown) (unknown) (no date) (unknown) (unknown) See Rx Instructions .ROUTE .COMPLEX Qty: 180 0RF (units unknown) (unknown) (unknown) (no date) (unknown) (unknown) See Rx Instructions .ROUTE .COMPLEX Qty: 2 0RF (units unknown) (unknown) (unknown) (no date) (unknown) (unknown) See Rx Instructions PO BEDTIME Qty: 45 2RF (units unknown) (unknown) (unknown) (no date) (unknown) (unknown) Signed By: (units unknown) (unknown) (unknown) (no date) (unknown) (unknown) Smoking Status: Former smoker (units unknown) (unknown) (unknown) (no date) (unknown) (unknown) Social History (units unknown) (unknown) (unknown) (no date) (unknown) (unknown) Sodium (137-145) mmol/L (units unknown) (unknown) (unknown) (no date) (unknown) (unknown) Sodium 136 L (137-145) mmol/L (units unknown) (unknown) (unknown) (no date) (unknown) (unknown) Source: patient and EMS (units unknown) (unknown) (unknown) (no date) (unknown) (unknown) Stated complaint: syncope/ lac forehead/? shoulder dislocation (units unknown) (unknown) (unknown) (no date) (unknown) (unknown) Status post appendectomy (2003) (units unknown) (unknown) (unknown) (no date) (unknown) (unknown) Status post bilatera l salpingectomy (10/21/17) (units unknown) (unknown) (unknown) (no date) (unknown) (unknown) Status post dilation and curettage (2010) (units unknown) (unknown) (unknown) (no date) (unknown) (unknown) Status post dilation and curettage (2011) (units unknown) (unknown) (unknown) (no date) (unknown) (unknown) Status post knee surgery (2007) (units unknown) (unknown) (unknown) (no date) (unknown) (unknown) Status post knee surgery (2012) (units unknown) (unknown) (unknown) (no date) (unknown) (unknown) Status post laparoscopic supracervical hysterectomy (10/21/17) (units unknown) (unknown) (unknown) (no date) (unknown) (unknown) Status post laparoscopy () (units unknown) (unknown) (unknown) (no date) (unknown) (unknown) Status post laparoscopy (2003) (units unknown) (unknown) (unknown) (no date) (unknown) (unknown) Status post laparoscopy (2004) (units unknown) (unknown) (unknown) (no date) (unknown) (unknown) Status post laparoscopy (2011) (units unknown) (unknown) (unknown) (no date) (unknown) (unknown) Status post removal of cervix (units unknown) (unknown) (unknown) (no date) (unknown) (unknown) Status post tonsillectomy and adenoidectomy (units unknown) (unknown) (unknown) (no date) (unknown) (unknown) Stop: 11/21/22 16:13 (units unknown) (unknown) (unknown) (no date) (unknown) (unknown) Stop: 11/21/22 17:26 (units unknown) (unknown) (unknown) (no date) (unknown) (unknown) Substance Use Type: does not use (units unknown) (unknown) (unknown) (no date) (unknown) (unknown) Surgical History (units unknown) (unknown) (unknown) (no date) (unknown) (unknown) TAKE 2 TABLETS BY MOUTH AT BEDTIME NEEDED FOR INSOMNIA (units unknown) (unknown) (unknown) (no date) (unknown) (unknown) Take 1 tab p.o. at HS. May take 1/2 tab p.o. during the day for anxiety (units unknown) (unknown) (unknown) (no date) (unknown) (unknown) Temperature 98.1 F 11/21/22 15:57 (units unknown) (unknown) (unknown) (no date) (unknown) (unknown) Temperature 98.1 F (units unknown) (unknown) (unknown) (no date) (unknown) (unknown) Time Seen by Provider: 11/21/22 16:12 (units unknown) (unknown) (unknown) (no date) (unknown) (unknown) Total Bilirubin (0.2-1.3) mg/dL (units unknown) (unknown) (unknown) (no date) (unknown) (unknown) Total Bilirubin 0.6 (0.2-1.3) mg/dL (units unknown) (unknown) (unknown) (no date) (unknown) (unknown) Total Creatine Kinas e (30-135) U/L (units unknown) (unknown) (unknown) (no date) (unknown) (unknown) Total Creatine Kinas e 59 (30-135) U/L (units unknown) (unknown) (unknown) (no date) (unknown) (unknown) Total Protein (6.3-8.2) g/dL (units unknown) (unknown) (unknown) (no date) (unknown) (unknown) Total Protein 6.7 (6.3-8.2) g/dL (units unknown) (unknown) (unknown) (no date) (unknown) (unknown) Troponin + CK Cardia c Panel Stat (units unknown) (unknown) (unknown) (no date) (unknown) (unknown) Troponin I < 0.012 (0.01-0.034) ng/mL (units unknown) (unknown) (unknown) (no date) (unknown) (unknown) Troponin I (0.01-0.034) ng/mL (units unknown) (unknown) (unknown) (no date) (unknown) (unknown) Type and Screen Stat (units unknown) (unknown) (unknown) (no date) (unknown) (unknown) Vital Signs - 8 hr (units unknown) (unknown) (unknown) (no date) (unknown) (unknown) Vital Signs (units unknown) (unknown) (unknown) (no date) (unknown) (unknown) Vital signs: (units unknown) (unknown) (unknown) (no date) (unknown) (unknown) WBC (4.5-11.0) X103/uL (units unknown) (unknown) (unknown) (no date) (unknown) (unknown) WBC 5.0 (4.5-11.0) X103/uL (units unknown) (unknown) (unknown) (no date) (unknown) (unknown) Christi Johnson , DNP, INFLATABLE BUILDINGS LAMINATOR [Primary Care Provider] (units unknown) (unknown) (unknown) (no date) (unknown) (unknown) XR chest 1V Stat (units unknown) (unknown) (unknown) (no date) (unknown) (unknown) XR elbow LT min 3V Stat (units unknown) (unknown) (unknown) (no date) (unknown) (unknown) XR shoulder LT min 2 V Stat (units unknown) (unknown) (unknown) (no date) (unknown) (unknown) [Embedded Image Not Available] (units unknown) (unknown) (unknown) (no date) (unknown) (unknown) [From BACTRIM] (units unknown) (unknown) (unknown) (no date) (unknown) (unknown) [IODINATED CONTRAST MEDIA (units unknown) (unknown) (unknown) (no date) (unknown) (unknown) [METOCLOPRAMIDE] (units unknown) (unknown) (unknown) (no date) (unknown) (unknown) [SHELLFISH DERIVED] (units unknown) (unknown) (unknown) (no date) (unknown) (unknown) adhesive [ADHESIVE] Allergy Mild Verified 11/21/22 16:09 (units unknown) (unknown) (unknown) (no date) (unknown) (unknown) alcohol intake frequency: holidays/special occasions only (units unknown) (unknown) (unknown) (no date) (unknown) (unknown) amoxicillin [AMOXICILLIN] Allergy Mild Verified 11/21/22 16:09 (units unknown) (unknown) (unknown) (no date) (unknown) (unknown) apply to single elbow, wrist or hand; for hand includes palm/fingers/back of (units unknown) (unknown) (unknown) (no date) (unknown) (unknown) cephalexin [CEPHALEXIN] Allergy Unknown Verified 11/21/22 16:09 (units unknown) (unknown) (unknown) (no date) (unknown) (unknown) ciprofloxacin [CIPROFLOXACIN] Allergy Unknown Verified 11/21/22 16:09 (units unknown) (unknown) (unknown) (no date) (unknown) (unknown) clindamycin [CLINDAMYCIN] Allergy Unknown Verified 11/21/22 16:09 (units unknown) (unknown) (unknown) (no date) (unknown) (unknown) diazepam 10 mg table t 10 mg PO QID #120 tabs 10/12/21 (units unknown) (unknown) (unknown) (no date) (unknown) (unknown) diazepam 10 mg tablet (units unknown) (unknown) (unknown) (no date) (unknown) (unknown) diazepam 5 mg tablet (Valium) 5 mg PO TID PRN muscle spasm #10 10/19/21 (units unknown) (unknown) (unknown) (no date) (unknown) (unknown) diazepam [Valium] 5 mg tablet (units unknown) (unknown) (unknown) (no date) (unknown) (unknown) diclofenac sodium 1 % gel (units unknown) (unknown) (unknown) (no date) (unknown) (unknown) diclofenac sodium 1 % topical gel 2 g topical QID #100 grams 05/05/22 (units unknown) (unknown) (unknown) (no date) (unknown) (unknown) doxycycline [DOXYCYCLINE] Allergy Mild Verified 11/21/22 16:09 (units unknown) (unknown) (unknown) (no date) (unknown) (unknown) epinephrine 0.3 mg/0.3 mL See Rx Instructions .Route 02/27/22 (units unknown) (unknown) (unknown) (no date) (unknown) (unknown) epinephrine 0.3 mg/0.3 mL auto-injector (units unknown) (unknown) (unknown) (no date) (unknown) (unknown) hand (units unknown) (unknown) (unknown) (no date) (unknown) (unknown) household members: spouse and children (units unknown) (unknown) (unknown) (no date) (unknown) (unknown) hydrocodone Allergy Mild rash Verified 11/21/22 16:09 (units unknown) (unknown) (unknown) (no date) (unknown) (unknown) injection, auto-injector .COMPLEX #2 ea (units unknown) (unknown) (unknown) (no date) (unknown) (unknown) iodine [IODINE] Allergy Mild Verified 11/21/22 16:09 (units unknown) (unknown) (unknown) (no date) (unknown) (unknown) lamotrigine 200 mg tablet 200 mg PO DAILY #30 tabs 01/18/22 (units unknown) (unknown) (unknown) (no date) (unknown) (unknown) lamotrigine 200 mg tablet (units unknown) (unknown) (unknown) (no date) (unknown) (unknown) latex [LATEX] Allerg y Unknown Verified 11/21/22 16:09 (units unknown) (unknown) (unknown) (no date) (unknown) (unknown) lidocaine AdvReac Palpitation Verified 11/21/22 16:09 (units unknown) (unknown) (unknown) (no date) (unknown) (unknown) lives independently: Yes (units unknown) (unknown) (unknown) (no date) (unknown) (unknown) marital status: (units unknown) (unknown) (unknown) (no date) (unknown) (unknown) metformin 500 mg tablet 500 mg PO BID #60 tabs 02/21/22 (units unknown) (unknown) (unknown) (no date) (unknown) (unknown) metformin 500 mg tablet (units unknown) (unknown) (unknown) (no date) (unknown) (unknown) metoclopramide Allergy Mild Verified 11/21/22 16:09 (units unknown) (unknown) (unknown) (no date) (unknown) (unknown) mg tablet (Percocet) (units unknown) (unknown) (unknown) (no date) (unknown) (unknown) occupational status: employed (units unknown) (unknown) (unknown) (no date) (unknown) (unknown) oxycodone 10 mg tablet 5 mg PO Q6H PRN pain #14 tabs 05/05/22 (units unknown) (unknown) (unknown) (no date) (unknown) (unknown) oxycodone 10 mg tablet (units unknown) (unknown) (unknown) (no date) (unknown) (unknown) oxycodone-acetaminop h en 5 mg-325 1 tab PO Q8H PRN pain #6 tabs 04/22/22 (units unknown) (unknown) (unknown) (no date) (unknown) (unknown) oxycodone-acetaminop h en [Percocet] 5-325 mg tablet (units unknown) (unknown) (unknown) (no date) (unknown) (unknown) quetiapine 100 mg tablet 100 mg PO BEDTIME 02/27/22 02/27/22 (units unknown) (unknown) (unknown) (no date) (unknown) (unknown) quetiapine 100 mg tablet (units unknown) (unknown) (unknown) (no date) (unknown) (unknown) quetiapine 25 mg tablet See Rx Instructions PO BEDTIME #45 01/18/22 (units unknown) (unknown) (unknown) (no date) (unknown) (unknown) quetiapine 25 mg tablet (units unknown) (unknown) (unknown) (no date) (unknown) (unknown) received per another provider. (units unknown) (unknown) (unknown) (no date) (unknown) (unknown) s (units unknown) (unknown) (unknown) (no date) (unknown) (unknown) sertraline 100 mg tablet 200 mg PO DAILY #60 tabs 01/18/22 (units unknown) (unknown) (unknown) (no date) (unknown) (unknown) sertraline 100 mg tablet (units unknown) (unknown) (unknown) (no date) (unknown) (unknown) shellfish derived Allergy Severe ANAPHYLAXIS Verified 11/21/22 16:09 (units unknown) (unknown) (unknown) (no date) (unknown) (unknown) sulfamethoxazole Allergy Mild RASH Verified 11/21/22 16:09 (units unknown) (unknown) (unknown) (no date) (unknown) (unknown) tabs (units unknown) (unknown) (unknown) (no date) (unknown) (unknown) tobacco type: vaping (units unknown) (unknown) (unknown) (no date) (unknown) (unknown) tramadol 50 mg table t 100 mg PO BID PRN severe pain 03/22/22 (units unknown) (unknown) (unknown) (no date) (unknown) (unknown) tramadol 50 mg tablet (units unknown) (unknown) (unknown) (no date) (unknown) (unknown) trazodone 100 mg tablet See Rx Instructions .Route 11/20/21 (units unknown) (unknown) (unknown) (no date) (unknown) (unknown) trazodone 100 mg tablet (units unknown) (unknown) (unknown) (no date) (unknown) (unknown) trimethoprim [From BACTRIM] Allergy Mild RASH Verified 11/21/22 16:09 (units unknown) (unknown) Result panel 365 (unknown) (no date) (unknown) (unknown) (no value) (units unknown) (unknown) (unknown) (no date) (unknown) (unknown) <Electronically signed by Shai Baron D.O.> (units unknown) (unknown) (unknown) (no date) (unknown) (unknown) (scale score 7-10) #60 tabs (units unknown) (unknown) (unknown) (no date) (unknown) (unknown) *If you do not have a primary care provider please contact the [facility] (units unknown) (unknown) (unknown) (no date) (unknown) (unknown) *Please continue to take your regular medications as directed. (units unknown) (unknown) (unknown) (no date) (unknown) (unknown) *Please follow up with your primary care provider in 2-3 days, call for an (units unknown) (unknown) (unknown) (no date) (unknown) (unknown) *Return to Emergency Department if you should have any new, worsening or (units unknown) (unknown) (unknown) (no date) (unknown) (unknown) *What to do: (units unknown) (unknown) (unknown) (no date) (unknown) (unknown) *You have been diagnosed with [shoulder separation, minor forehead abrasion, (units unknown) (unknown) (unknown) (no date) (unknown) (unknown) .COMPLEX #180 tabs (units unknown) (unknown) (unknown) (no date) (unknown) (unknown) 11/21/22 11/21/22 11/21/22 Range/Units (units unknown) (unknown) (unknown) (no date) (unknown) (unknown) 11/21/22 11/21/22 Range/Units (units unknown) (unknown) (unknown) (no date) (unknown) (unknown) 11/21/22 16:15 (units unknown) (unknown) (unknown) (no date) (unknown) (unknown) 11/21/22 (units unknown) (unknown) (unknown) (no date) (unknown) (unknown) 11/22/22 2158 (units unknown) (unknown) (unknown) (no date) (unknown) (unknown) 1 tab PO Q8H PRN (Reason: pain) Qty: 6 0RF (units unknown) (unknown) (unknown) (no date) (unknown) (unknown) 10 mg PO QID Qty: 12 0 2RF (units unknown) (unknown) (unknown) (no date) (unknown) (unknown) 100 mg PO BEDTIME (units unknown) (unknown) (unknown) (no date) (unknown) (unknown) 100 mg PO BID PRN (Reason: severe pain (scale score 7-10)) Qty: 60 0RF (units unknown) (unknown) (unknown) (no date) (unknown) (unknown) 12 point review of systems is negative except for those stated above (units unknown) (unknown) (unknown) (no date) (unknown) (unknown) 15:57 (units unknown) (unknown) (unknown) (no date) (unknown) (unknown) 16:15 16:15 16:15 (units unknown) (unknown) (unknown) (no date) (unknown) (unknown) 16:15 16:15 (units unknown) (unknown) (unknown) (no date) (unknown) (unknown) 2 g topical QID Qty: 100 3RF (units unknown) (unknown) (unknown) (no date) (unknown) (unknown) 200 mg PO DAILY Qty: 30 2RF (units unknown) (unknown) (unknown) (no date) (unknown) (unknown) 200 mg PO DAILY Qty: 60 2RF (units unknown) (unknown) (unknown) (no date) (unknown) (unknown) 27-year-old former smoker with history of seizures, epigastric pain, frequent (units unknown) (unknown) (unknown) (no date) (unknown) (unknown) 5 mg PO Q6H PRN (Reason: pain) Qty: 14 0RF (units unknown) (unknown) (unknown) (no date) (unknown) (unknown) 5 mg PO TID PRN (Reason: muscle spasm) Qty: 10 0RF (units unknown) (unknown) (unknown) (no date) (unknown) (unknown) 500 mg PO BID Qty: 6 0 0RF (units unknown) (unknown) (unknown) (no date) (unknown) (unknown) : [id number] (units unknown) (unknown) (unknown) (no date) (unknown) (unknown) ALT (<35) IU/L (units unknown) (unknown) (unknown) (no date) (unknown) (unknown) ALT 15 (<35) IU/L (units unknown) (unknown) (unknown) (no date) (unknown) (unknown) APTT (26-36) SECONDS (units unknown) (unknown) (unknown) (no date) (unknown) (unknown) APTT 26 (26-36) SECONDS (units unknown) (unknown) (unknown) (no date) (unknown) (unknown) AST (14-36) IU/L (units unknown) (unknown) (unknown) (no date) (unknown) (unknown) AST 17 (14-36) IU/L (units unknown) (unknown) (unknown) (no date) (unknown) (unknown) Activity Restrictions/Addition al Instructions: (units unknown) (unknown) (unknown) (no date) (unknown) (unknown) Age/Sex: 27 / F (units unknown) (unknown) (unknown) (no date) (unknown) (unknown) Albumin (3.5-5.0) g/dL (units unknown) (unknown) (unknown) (no date) (unknown) (unknown) Albumin 4.1 (3.5-5.0 ) g/dL (units unknown) (unknown) (unknown) (no date) (unknown) (unknown) Albumin/Globulin Ratio (1.0-2.8) (units unknown) (unknown) (unknown) (no date) (unknown) (unknown) Albumin/Globulin Ratio 1.6 (1.0-2.8) (units unknown) (unknown) (unknown) (no date) (unknown) (unknown) Alkaline Phosphatase (38-126) U/L (units unknown) (unknown) (unknown) (no date) (unknown) (unknown) Alkaline Phosphatase 37 L (38-126) U/L (units unknown) (unknown) (unknown) (no date) (unknown) (unknown) Allergies (units unknown) (unknown) (unknown) (no date) (unknown) (unknown) Allergy/AdvReac Type Severity Reaction Status Date / Time (units unknown) (unknown) (unknown) (no date) (unknown) (unknown) BACK: Nontender without deformity or crepitance. No flank tenderness. 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 (units unknown) (unknown) (unknown) (no date) (unknown) (unknown) BUN (7-17) mg/dL (units unknown) (unknown) (unknown) (no date) (unknown) (unknown) BUN 18 H (7-17) mg/dL (units unknown) (unknown) (unknown) (no date) (unknown) (unknown) BUN/Creatinine Ratio (6-22) (units unknown) (unknown) (unknown) (no date) (unknown) (unknown) BUN/Creatinine Ratio 20.9 (6-22) (units unknown) (unknown) (unknown) (no date) (unknown) (unknown) Baso # (Auto) (0-100 ) /uL (units unknown) (unknown) (unknown) (no date) (unknown) (unknown) Baso # (Auto) 0 (0-100) /uL (units unknown) (unknown) (unknown) (no date) (unknown) (unknown) Baso % (Auto) (0-2) % (units unknown) (unknown) (unknown) (no date) (unknown) (unknown) Baso % (Auto) 0.4 (0-2) % (units unknown) (unknown) (unknown) (no date) (unknown) (unknown) Blood Pressure 123/6 8 11/21/22 15:57 (units unknown) (unknown) (unknown) (no date) (unknown) (unknown) Blood Pressure 123/68 (units unknown) (unknown) (unknown) (no date) (unknown) (unknown) Breast cancer (units unknown) (unknown) (unknown) (no date) (unknown) (unknown) CAD (coronary artery disease) (units unknown) (unknown) (unknown) (no date) (unknown) (unknown) CARDIOVASCULAR: Regular rate and rhythm without murmurs, gallops, or rubs. (units unknown) (unknown) (unknown) (no date) (unknown) (unknown) CARDIOVASCULAR: See HPI (units unknown) (unknown) (unknown) (no date) (unknown) (unknown) CC: 27-year-old female with extensive medical history presents with syncope (units unknown) (unknown) (unknown) (no date) (unknown) (unknown) CK-MB (CK-2) Rel Index TNP (units unknown) (unknown) (unknown) (no date) (unknown) (unknown) CK-MB (CK-2) Rel Index (units unknown) (unknown) (unknown) (no date) (unknown) (unknown) CK-MB (CK-2) TNP (units unknown) (unknown) (unknown) (no date) (unknown) (unknown) CK-MB (CK-2) (units unknown) (unknown) (unknown) (no date) (unknown) (unknown) Calcium (8.4-10.2) mg/dL (units unknown) (unknown) (unknown) (no date) (unknown) (unknown) Calcium 8.7 (8.4-10.2) mg/dL (units unknown) (unknown) (unknown) (no date) (unknown) (unknown) Carbon Dioxide (22-32) mmol/L (units unknown) (unknown) (unknown) (no date) (unknown) (unknown) Carbon Dioxide 29 (22-32) mmol/L (units unknown) (unknown) (unknown) (no date) (unknown) (unknown) Chief complaint: Syncope (units unknown) (unknown) (unknown) (no date) (unknown) (unknown) Chloride (98-107) mmol/L (units unknown) (unknown) (unknown) (no date) (unknown) (unknown) Chloride 101 (98-107 ) mmol/L (units unknown) (unknown) (unknown) (no date) (unknown) (unknown) Clinical Impression: (units unknown) (unknown) (unknown) (no date) (unknown) (unknown) Complicating co-morbidities: Seizures, GI complaints, GI bleed (units unknown) (unknown) (unknown) (no date) (unknown) (unknown) Contract void and provider will offer no further tramadol refills if tramadol (units unknown) (unknown) (unknown) (no date) (unknown) (unknown) Course (units unknown) (unknown) (unknown) (no date) (unknown) (unknown) Creatinine (0.52-1.04) mg/dL (units unknown) (unknown) (unknown) (no date) (unknown) (unknown) Creatinine 0.86 (0.52-1.04) mg/dL (units unknown) (unknown) (unknown) (no date) (unknown) (unknown) : 1995 Acct:[id number] (units unknown) (unknown) (unknown) (no date) (unknown) (unknown) Data collected from: Patient (units unknown) (unknown) (unknown) (no date) (unknown) (unknown) Date of Service: 11/21/22 (units unknown) (unknown) (unknown) (no date) (unknown) (unknown) Departure (units unknown) (unknown) (unknown) (no date) (unknown) (unknown) Differential considered, but not limited to: Syncope versus near-syncope versus (units unknown) (unknown) (unknown) (no date) (unknown) (unknown) Discharge Plan (units unknown) (unknown) (unknown) (no date) (unknown) (unknown) Discontinued Medications (units unknown) (unknown) (unknown) (no date) (unknown) (unknown) Discussion: Patient with reported bloody vomit, syncopal episode had head (units unknown) (unknown) (unknown) (no date) (unknown) (unknown) Disposition: see below, along with detailed discharge instructions that have (units unknown) (unknown) (unknown) (no date) (unknown) (unknown) Documented By: GC (units unknown) (unknown) (unknown) (no date) (unknown) (unknown) Documented By: MLM (units unknown) (unknown) (unknown) (no date) (unknown) (unknown) Dose Instruction: (units unknown) (unknown) (unknown) (no date) (unknown) (unknown) ENT: Nose without bleeding, purulent drainage. No nasal septal hematoma Throat (units unknown) (unknown) (unknown) (no date) (unknown) (unknown) ER Physician: Shai Baron D.O. (units unknown) (unknown) (unknown) (no date) (unknown) (unknown) EXTREMITIES: Tender to left anterior lateral shoulder, worse with range of (units unknown) (unknown) (unknown) (no date) (unknown) (unknown) EYES: Pupils equal round and reactive. No hyphema Extraocular motions intact. (units unknown) (unknown) (unknown) (no date) (unknown) (unknown) Emergency Report (units unknown) (unknown) (unknown) (no date) (unknown) (unknown) Endometriosis (units unknown) (unknown) (unknown) (no date) (unknown) (unknown) Eos # (Auto) (0-450) /uL (units unknown) (unknown) (unknown) (no date) (unknown) (unknown) Eos # (Auto) 100 (0-450) /uL (units unknown) (unknown) (unknown) (no date) (unknown) (unknown) Eos % (Auto) (2-4) % (units unknown) (unknown) (unknown) (no date) (unknown) (unknown) Eos % (Auto) 1.8 L (2-4) % (units unknown) (unknown) (unknown) (no date) (unknown) (unknown) Estimated GFR > 60 (>60) mL/min (units unknown) (unknown) (unknown) (no date) (unknown) (unknown) Estimated GFR (>60) mL/min (units unknown) (unknown) (unknown) (no date) (unknown) (unknown) Exam Narrative: (units unknown) (unknown) (unknown) (no date) (unknown) (unknown) Exam documented above, pertinent findings include: Superficial abrasion and (units unknown) (unknown) (unknown) (no date) (unknown) (unknown) Exam (units unknown) (unknown) (unknown) (no date) (unknown) (unknown) Family History (units unknown) (unknown) (unknown) (no date) (unknown) (unknown) GASTROINTESTINAL: Abdomen soft, non-tender, nondistended. (units unknown) (unknown) (unknown) (no date) (unknown) (unknown) GASTROINTESTINAL: Denies nausea, vomiting, abdominal pain, diarrhea, (units unknown) (unknown) (unknown) (no date) (unknown) (unknown) GENERAL: See HPI (units unknown) (unknown) (unknown) (no date) (unknown) (unknown) GENERAL: [27] year old patient appears stated age. Well-developed patient, in (units unknown) (unknown) (unknown) (no date) (unknown) (unknown) : Denies dysuria, frequency, incontinence, hematuria, urinary retention. (units unknown) (unknown) (unknown) (no date) (unknown) (unknown) General (units unknown) (unknown) (unknown) (no date) (unknown) (unknown) Globulin (1.7-4.1) g/dL (units unknown) (unknown) (unknown) (no date) (unknown) (unknown) Globulin 2.6 (1.7-4.1) g/dL (units unknown) (unknown) (unknown) (no date) (unknown) (unknown) Glucose (70-100) mg/dL (units unknown) (unknown) (unknown) (no date) (unknown) (unknown) Glucose 81 (70-100) mg/dL (units unknown) (unknown) (unknown) (no date) (unknown) (unknown) Grandmother Ovarian cancer (units unknown) (unknown) (unknown) (no date) (unknown) (unknown) H/O unilateral oophorectomy () (units unknown) (unknown) (unknown) (no date) (unknown) (unknown) H/O: hysterectomy (units unknown) (unknown) (unknown) (no date) (unknown) (unknown) HEAD: Small vertically oriented superficial abrasion and central forehead, no (units unknown) (unknown) (unknown) (no date) (unknown) (unknown) HEENT: Denies sinus pain, ear pain, sore throat, difficulty swallowing, (units unknown) (unknown) (unknown) (no date) (unknown) (unknown) HPI - General Adult (units unknown) (unknown) (unknown) (no date) (unknown) (unknown) HPI narrative: (units unknown) (unknown) (unknown) (no date) (unknown) (unknown) Hct (36-46) % (units unknown) (unknown) (unknown) (no date) (unknown) (unknown) Hct 36.7 (36-46) % (units unknown) (unknown) (unknown) (no date) (unknown) (unknown) Hematuria (units unknown) (unknown) (unknown) (no date) (unknown) (unknown) Hgb (12.0-16.0) g/dL (units unknown) (unknown) (unknown) (no date) (unknown) (unknown) Hgb 12.6 (12.0-16.0) g/dL (units unknown) (unknown) (unknown) (no date) (unknown) (unknown) History of Present Illness (units unknown) (unknown) (unknown) (no date) (unknown) (unknown) History of ureter stent (units unknown) (unknown) (unknown) (no date) (unknown) (unknown) Hold Instructions: NEEDS TO SEE NEUROLOGY (units unknown) (unknown) (unknown) (no date) (unknown) (unknown) Hold Instructions: SEEN BY PSYCHIATRY (units unknown) (unknown) (unknown) (no date) (unknown) (unknown) Home Medications (units unknown) (unknown) (unknown) (no date) (unknown) (unknown) Hyperlipidemia (units unknown) (unknown) (unknown) (no date) (unknown) (unknown) Hypertension (units unknown) (unknown) (unknown) (no date) (unknown) (unknown) INJECT INTRAMUSCULARLY EVERY 20 MINUTES NEEDED FOR ANAPHYLAXIS UNTIL (units unknown) (unknown) (unknown) (no date) (unknown) (unknown) INR (0.9-1.3) (units unknown) (unknown) (unknown) (no date) (unknown) (unknown) INR 1.0 (0.9-1.3) (units unknown) (unknown) (unknown) (no date) (unknown) (unknown) IV DYE] (units unknown) (unknown) (unknown) (no date) (unknown) (unknown) Imaging studies independently reviewed: CT of head and C-spine without (units unknown) (unknown) (unknown) (no date) (unknown) (unknown) Independently reviewed EKG as above (units unknown) (unknown) (unknown) (no date) (unknown) (unknown) Initial Vital Signs (units unknown) (unknown) (unknown) (no date) (unknown) (unknown) Initial Vital Signs: (units unknown) (unknown) (unknown) (no date) (unknown) (unknown) Instructions: DI for Shoulder Pain, DI for Vomiting -- Adult (units unknown) (unknown) (unknown) (no date) (unknown) (unknown) Iodinated Contrast Media Allergy Unknown Verified 11/21/22 16:09 (units unknown) (unknown) (unknown) (no date) (unknown) (unknown) [address] [address] (units unknown) (unknown) (unknown) (no date) (unknown) (unknown) Lab Data (units unknown) (unknown) (unknown) (no date) (unknown) (unknown) Lab Results (units unknown) (unknown) (unknown) (no date) (unknown) (unknown) Lab Test results independently reviewed as above. Pertinent findings: No (units unknown) (unknown) (unknown) (no date) (unknown) (unknown) Labs: (units unknown) (unknown) (unknown) (no date) (unknown) (unknown) Lactate (0.7-2.1) mmol/L (units unknown) (unknown) (unknown) (no date) (unknown) (unknown) Lactate 0.8 (0.7-2.1 ) mmol/L (units unknown) (unknown) (unknown) (no date) (unknown) (unknown) Last Admin: 11/21/22 16:50 Dose: 40 mg (units unknown) (unknown) (unknown) (no date) (unknown) (unknown) Last Admin: 11/21/22 17:45 Dose: 2 tab (units unknown) (unknown) (unknown) (no date) (unknown) (unknown) Last Admin: 11/21/22 20:39 Dose: 1 tab (units unknown) (unknown) (unknown) (no date) (unknown) (unknown) Last Admin: 11/21/22 20:40 Dose: 1 bottle (units unknown) (unknown) (unknown) (no date) (unknown) (unknown) Limit as possible. Prescribed per 03/21 signed pain management contract. (units unknown) (unknown) (unknown) (no date) (unknown) (unknown) Lipase (23-300) U/L (units unknown) (unknown) (unknown) (no date) (unknown) (unknown) Lipase 98 (23-300) U/L (units unknown) (unknown) (unknown) (no date) (unknown) (unknown) Lymph # (Auto) (2866-6561) /uL (units unknown) (unknown) (unknown) (no date) (unknown) (unknown) Lymph # (Auto) 2200 (3550-7000) /uL (units unknown) (unknown) (unknown) (no date) (unknown) (unknown) Lymph % (Auto) (25-40) % (units unknown) (unknown) (unknown) (no date) (unknown) (unknown) Lymph % (Auto) 43.6 H (25-40) % (units unknown) (unknown) (unknown) (no date) (unknown) (unknown) MCH (26-34) PG (units unknown) (unknown) (unknown) (no date) (unknown) (unknown) MCH 30.9 (26-34) PG (units unknown) (unknown) (unknown) (no date) (unknown) (unknown) MCHC (30-36) % (units unknown) (unknown) (unknown) (no date) (unknown) (unknown) MCHC 34.5 (30-36) % (units unknown) (unknown) (unknown) (no date) (unknown) (unknown) MCV (80-100) fL (units unknown) (unknown) (unknown) (no date) (unknown) (unknown) MCV 89.6 (80-100) fL (units unknown) (unknown) (unknown) (no date) (unknown) (unknown) MDM Narrative (units unknown) (unknown) (unknown) (no date) (unknown) (unknown) MUSCULOSKELETAL: denies weakness, joint pain, or bony pain (units unknown) (unknown) (unknown) (no date) (unknown) (unknown) Magnesium (1.6-2.3) mg/dL (units unknown) (unknown) (unknown) (no date) (unknown) (unknown) Magnesium 1.9 (1.6-2.3) mg/dL (units unknown) (unknown) (unknown) (no date) (unknown) (unknown) Major depressive disorder (units unknown) (unknown) (unknown) (no date) (unknown) (unknown) Medical Decision Making (units unknown) (unknown) (unknown) (no date) (unknown) (unknown) Medical History (units unknown) (unknown) (unknown) (no date) (unknown) (unknown) Medical decision making narrative: (units unknown) (unknown) (unknown) (no date) (unknown) (unknown) Medical records reviewed: Prior notes reviewed in our EMR (units unknown) (unknown) (unknown) (no date) (unknown) (unknown) Medication Instructions Recorded Confirmed (units unknown) (unknown) (unknown) (no date) (unknown) (unknown) Medication Instructions Recorded (units unknown) (unknown) (unknown) (no date) (unknown) (unknown) Mode of arrival: EMS (units unknown) (unknown) (unknown) (no date) (unknown) (unknown) [place] # (Auto) (0-900 ) /uL (units unknown) (unknown) (unknown) (no date) (unknown) (unknown) [place] # (Auto) 500 (0-900) /uL (units unknown) (unknown) (unknown) (no date) (unknown) (unknown) [place] % (Auto) (3-14) % (units unknown) (unknown) (unknown) (no date) (unknown) (unknown) [place] % (Auto) 9.4 (3-14) % (units unknown) (unknown) (unknown) (no date) (unknown) (unknown) Morbid obesity (units unknown) (unknown) (unknown) (no date) (unknown) (unknown) Mother BRCA positive (units unknown) (unknown) (unknown) (no date) (unknown) (unknown) NECK: Trachea midline. Non tender, no step-offs or crepitance (units unknown) (unknown) (unknown) (no date) (unknown) (unknown) NEURO: AOx3. (units unknown) (unknown) (unknown) (no date) (unknown) (unknown) NEUROLOGIC: See HPI (units unknown) (unknown) (unknown) (no date) (unknown) (unknown) Narrative (units unknown) (unknown) (unknown) (no date) (unknown) (unknown) Narrative: (units unknown) (unknown) (unknown) (no date) (unknown) (unknown) Nephrolithiasis (-2017) (units unknown) (unknown) (unknown) (no date) (unknown) (unknown) Neut # (Auto) (0187-8358) /uL (units unknown) (unknown) (unknown) (no date) (unknown) (unknown) Neut # (Auto) 2300 (5419-4497) /uL (units unknown) (unknown) (unknown) (no date) (unknown) (unknown) Neut % (Auto) (50-75 ) % (units unknown) (unknown) (unknown) (no date) (unknown) (unknown) Neut % (Auto) 44.8 L (50-75) % (units unknown) (unknown) (unknown) (no date) (unknown) (unknown) No Action (units unknown) (unknown) (unknown) (no date) (unknown) (unknown) No scleral icterus. No injection or drainage. (units unknown) (unknown) (unknown) (no date) (unknown) (unknown) Ondansetron HCl (Ondansetron 4 Mg Odt Prepack) 1 bottle MISC SEEINSTR ONE (units unknown) (unknown) (unknown) (no date) (unknown) (unknown) Ordered: (units unknown) (unknown) (unknown) (no date) (unknown) (unknown) Orders (units unknown) (unknown) (unknown) (no date) (unknown) (unknown) Ovarian cyst (units unknown) (unknown) (unknown) (no date) (unknown) (unknown) Oxycodone/Acetaminop h en (Oxycodone/Acetaminop hen 5/325 Tablet) 1 tab PO NOW ONE (units unknown) (unknown) (unknown) (no date) (unknown) (unknown) Oxycodone/Acetaminop h en (Oxycodone/Acetaminop hen 5/325 Tablet) 2 tab PO NOW ONE (units unknown) (unknown) (unknown) (no date) (unknown) (unknown) Oxygen Delivery Method Room Air 11/21/22 15:57 (units unknown) (unknown) (unknown) (no date) (unknown) (unknown) Oxygen Delivery Method Room Air (units unknown) (unknown) (unknown) (no date) (unknown) (unknown) PCOS (polycystic ovarian syndrome) (units unknown) (unknown) (unknown) (no date) (unknown) (unknown) PSYCHIATRIC: No concerning psychosocial issues. (units unknown) (unknown) (unknown) (no date) (unknown) (unknown) PT (10.1-12.7) SECONDS (units unknown) (unknown) (unknown) (no date) (unknown) (unknown) PT 12.0 (10.1-12.7) SECONDS (units unknown) (unknown) (unknown) (no date) (unknown) (unknown) Pantoprazole Sodium (Pantoprazole 40 Mg Vial) 40 mg IV NOW ONE (units unknown) (unknown) (unknown) (no date) (unknown) (unknown) Patellar dislocation (units unknown) (unknown) (unknown) (no date) (unknown) (unknown) Patient Disposition: Home (units unknown) (unknown) (unknown) (no date) (unknown) (unknown) Patient History (units unknown) (unknown) (unknown) (no date) (unknown) (unknown) Patient: Calin Jorgensen MR# (units unknown) (unknown) (unknown) (no date) (unknown) (unknown) Pelvic congestion (2013) (units unknown) (unknown) (unknown) (no date) (unknown) (unknown) Penicillins [PENICILLINS] Allergy Mild Verified 11/21/22 16:09 (units unknown) (unknown) (unknown) (no date) (unknown) (unknown) Plt Count (150-400) X103/uL (units unknown) (unknown) (unknown) (no date) (unknown) (unknown) Plt Count 197 (150-400) X103/uL (units unknown) (unknown) (unknown) (no date) (unknown) (unknown) Potassium (3.4-5.1) mmol/L (units unknown) (unknown) (unknown) (no date) (unknown) (unknown) Potassium 4.1 (3.4-5.1) mmol/L (units unknown) (unknown) (unknown) (no date) (unknown) (unknown) Prescriptions: (units unknown) (unknown) (unknown) (no date) (unknown) (unknown) Previous Rx's (units unknown) (unknown) (unknown) (no date) (unknown) (unknown) Psychogenic nonepileptic seizure (units unknown) (unknown) (unknown) (no date) (unknown) (unknown) Pulse Oximetry 100 11/21/22 15:57 (units unknown) (unknown) (unknown) (no date) (unknown) (unknown) Pulse Oximetry 100 (units unknown) (unknown) (unknown) (no date) (unknown) (unknown) Pulse Rate 57 L 11/21/22 15:57 (units unknown) (unknown) (unknown) (no date) (unknown) (unknown) Pulse Rate 57 L (units unknown) (unknown) (unknown) (no date) (unknown) (unknown) RBC (4.0-5.2) X106/uL (units unknown) (unknown) (unknown) (no date) (unknown) (unknown) RBC 4.10 (4.0-5.2) X106/uL (units unknown) (unknown) (unknown) (no date) (unknown) (unknown) RDW (11.6-14.8) % (units unknown) (unknown) (unknown) (no date) (unknown) (unknown) RDW 12.6 (11.6-14.8) % (units unknown) (unknown) (unknown) (no date) (unknown) (unknown) RESPIRATORY: Clear t o auscultation. Breath sounds equal bilaterally. No wheezes, (units unknown) (unknown) (unknown) (no date) (unknown) (unknown) RESPIRATORY: Denies dyspnea, cough, wheezing, hemoptysis, sputum. (units unknown) (unknown) (unknown) (no date) (unknown) (unknown) RESPONSE (units unknown) (unknown) (unknown) (no date) (unknown) (unknown) Re-evaluations: Patient observed for multiple hours, significant improvement (units unknown) (unknown) (unknown) (no date) (unknown) (unknown) Referrals: (units unknown) (unknown) (unknown) (no date) (unknown) (unknown) Related Data (units unknown) (unknown) (unknown) (no date) (unknown) (unknown) Resource line at [phone]. They will ask some questions about your medical (units unknown) (unknown) (unknown) (no date) (unknown) (unknown) Respiratory Rate 16 11/21/22 15:57 (units unknown) (unknown) (unknown) (no date) (unknown) (unknown) Respiratory Rate 16 (units unknown) (unknown) (unknown) (no date) (unknown) (unknown) Review of Systems (units unknown) (unknown) (unknown) (no date) (unknown) (unknown) Rx Instructions: (units unknown) (unknown) (unknown) (no date) (unknown) (unknown) SARS-CoV-2 (PCR) (Negative) (units unknown) (unknown) (unknown) (no date) (unknown) (unknown) SARS-CoV-2 (PCR) Negative (Negative) (units unknown) (unknown) (unknown) (no date) (unknown) (unknown) SKIN: Denies rash, skin lesions, or other (units unknown) (unknown) (unknown) (no date) (unknown) (unknown) SKIN: No rash or erythema of visible areas (units unknown) (unknown) (unknown) (no date) (unknown) (unknown) Scores Used: GCS (units unknown) (unknown) (unknown) (no date) (unknown) (unknown) See Rx Instructions .ROUTE .COMPLEX Qty: 180 0RF (units unknown) (unknown) (unknown) (no date) (unknown) (unknown) See Rx Instructions .ROUTE .COMPLEX Qty: 2 0RF (units unknown) (unknown) (unknown) (no date) (unknown) (unknown) See Rx Instructions PO BEDTIME Qty: 45 2RF (units unknown) (unknown) (unknown) (no date) (unknown) (unknown) Joaquin Quinn MD [Physician] (units unknown) (unknown) (unknown) (no date) (unknown) (unknown) She denies any chest pain or shortness of breath. She denies any diarrhea or (units unknown) (unknown) (unknown) (no date) (unknown) (unknown) Signed By: (units unknown) (unknown) (unknown) (no date) (unknown) (unknown) Smoking Status: Former smoker (units unknown) (unknown) (unknown) (no date) (unknown) (unknown) Social History (units unknown) (unknown) (unknown) (no date) (unknown) (unknown) Sodium (137-145) mmol/L (units unknown) (unknown) (unknown) (no date) (unknown) (unknown) Sodium 136 L (137-145) mmol/L (units unknown) (unknown) (unknown) (no date) (unknown) (unknown) Source: patient and EMS (units unknown) (unknown) (unknown) (no date) (unknown) (unknown) Stand Alone Forms: Patient Portal/API (units unknown) (unknown) (unknown) (no date) (unknown) (unknown) Stated complaint: syncope/ lac forehead/? shoulder dislocation (units unknown) (unknown) (unknown) (no date) (unknown) (unknown) Status post appendectomy (2003) (units unknown) (unknown) (unknown) (no date) (unknown) (unknown) Status post bilatera l salpingectomy (10/21/17) (units unknown) (unknown) (unknown) (no date) (unknown) (unknown) Status post dilation and curettage (2010) (units unknown) (unknown) (unknown) (no date) (unknown) (unknown) Status post dilation and curettage (2011) (units unknown) (unknown) (unknown) (no date) (unknown) (unknown) Status post knee surgery (2007) (units unknown) (unknown) (unknown) (no date) (unknown) (unknown) Status post knee surgery (2012) (units unknown) (unknown) (unknown) (no date) (unknown) (unknown) Status post laparoscopic supracervical hysterectomy (10/21/17) (units unknown) (unknown) (unknown) (no date) (unknown) (unknown) Status post laparoscopy () (units unknown) (unknown) (unknown) (no date) (unknown) (unknown) Status post laparoscopy (2003) (units unknown) (unknown) (unknown) (no date) (unknown) (unknown) Status post laparoscopy (2004) (units unknown) (unknown) (unknown) (no date) (unknown) (unknown) Status post laparoscopy (2012) (units unknown) (unknown) (unknown) (no date) (unknown) (unknown) Status post removal of cervix (units unknown) (unknown) (unknown) (no date) (unknown) (unknown) Status post tonsillectomy and adenoidectomy (units unknown) (unknown) (unknown) (no date) (unknown) (unknown) Stop: 11/21/22 16:13 (units unknown) (unknown) (unknown) (no date) (unknown) (unknown) Stop: 11/21/22 17:26 (units unknown) (unknown) (unknown) (no date) (unknown) (unknown) Stop: 11/21/22 20:25 (units unknown) (unknown) (unknown) (no date) (unknown) (unknown) Substance Use Type: does not use (units unknown) (unknown) (unknown) (no date) (unknown) (unknown) Surgical History (units unknown) (unknown) (unknown) (no date) (unknown) (unknown) TAKE 2 TABLETS BY MOUTH AT BEDTIME NEEDED FOR INSOMNIA (units unknown) (unknown) (unknown) (no date) (unknown) (unknown) Take 1 tab p.o. at HS. May take 1/2 tab p.o. during the day for anxiety (units unknown) (unknown) (unknown) (no date) (unknown) (unknown) Temperature 98.1 F 11/21/22 15:57 (units unknown) (unknown) (unknown) (no date) (unknown) (unknown) Temperature 98.1 F (units unknown) (unknown) (unknown) (no date) (unknown) (unknown) Time Seen by Provider: 11/21/22 16:12 (units unknown) (unknown) (unknown) (no date) (unknown) (unknown) Total Bilirubin (0.2-1.3) mg/dL (units unknown) (unknown) (unknown) (no date) (unknown) (unknown) Total Bilirubin 0.6 (0.2-1.3) mg/dL (units unknown) (unknown) (unknown) (no date) (unknown) (unknown) Total Creatine Kin[place] e (30-135) U/L (units unknown) (unknown) (unknown) (no date) (unknown) (unknown) Total Creatine Kinas e 59 (30-135) U/L (units unknown) (unknown) (unknown) (no date) (unknown) (unknown) Total Protein (6.3-8.2) g/dL (units unknown) (unknown) (unknown) (no date) (unknown) (unknown) Total Protein 6.7 (6.3-8.2) g/dL (units unknown) (unknown) (unknown) (no date) (unknown) (unknown) Treatments: Zofran, Percocet, Protonix (units unknown) (unknown) (unknown) (no date) (unknown) (unknown) Troponin I < 0.012 (0.01-0.034) ng/mL (units unknown) (unknown) (unknown) (no date) (unknown) (unknown) Troponin I (0.01-0.034) ng/mL (units unknown) (unknown) (unknown) (no date) (unknown) (unknown) Vital Signs - 8 hr (units unknown) (unknown) (unknown) (no date) (unknown) (unknown) Vital Signs (units unknown) (unknown) (unknown) (no date) (unknown) (unknown) Vital signs: (units unknown) (unknown) (unknown) (no date) (unknown) (unknown) Vomiting, Abrasion o f forehead, shoulder (units unknown) (unknown) (unknown) (no date) (unknown) (unknown) WBC (4.5-11.0) X103/uL (units unknown) (unknown) (unknown) (no date) (unknown) (unknown) WBC 5.0 (4.5-11.0) X103/uL (units unknown) (unknown) (unknown) (no date) (unknown) (unknown) Christi Johnson , DNP, INFLATABLE BUILDINGS LAMINATOR [Primary Care Provider] (units unknown) (unknown) (unknown) (no date) (unknown) (unknown) [Embedded Image Not Available] (units unknown) (unknown) (unknown) (no date) (unknown) (unknown) [From BACTRIM] (units unknown) (unknown) (unknown) (no date) (unknown) (unknown) [IODINATED CONTRAST MEDIA (units unknown) (unknown) (unknown) (no date) (unknown) (unknown) [METOCLOPRAMIDE] (units unknown) (unknown) (unknown) (no date) (unknown) (unknown) [SHELLFISH DERIVED] (units unknown) (unknown) (unknown) (no date) (unknown) (unknown) active bleeding or evidence of depressed skull fracture (units unknown) (unknown) (unknown) (no date) (unknown) (unknown) additional outpatien t follow up (units unknown) (unknown) (unknown) (no date) (unknown) (unknown) adhesive [ADHESIVE] Allergy Mild Verified 11/21/22 16:09 (units unknown) (unknown) (unknown) (no date) (unknown) (unknown) alcohol intake frequency: holidays/special occasions only (units unknown) (unknown) (unknown) (no date) (unknown) (unknown) amoxicillin [AMOXICILLIN] Allergy Mild Verified 11/21/22 16:09 (units unknown) (unknown) (unknown) (no date) (unknown) (unknown) an episode of vomiting and syncope versus near-syncope event in which she fell (units unknown) (unknown) (unknown) (no date) (unknown) (unknown) and struck her head on a hard object. Her primary complaint is of left shoulder (units unknown) (unknown) (unknown) (no date) (unknown) (unknown) apply to single elbow, wrist or hand; for hand includes palm/fingers/back of (units unknown) (unknown) (unknown) (no date) (unknown) (unknown) appointment. Let the m know you were seen in the Emergency Department and that we (units unknown) (unknown) (unknown) (no date) (unknown) (unknown) ask that you be seen in follow up. We will electronically transmit a record of (units unknown) (unknown) (unknown) (no date) (unknown) (unknown) been reviewed with patient as well as indications for ED re-evaluation and (units unknown) (unknown) (unknown) (no date) (unknown) (unknown) but denies numbness, tingling or weakness. (units unknown) (unknown) (unknown) (no date) (unknown) (unknown) cephalexin [CEPHALEXIN] Allergy Unknown Verified 11/21/22 16:09 (units unknown) (unknown) (unknown) (no date) (unknown) (unknown) ciprofloxacin [CIPROFLOXACIN] Allergy Unknown Verified 11/21/22 16:09 (units unknown) (unknown) (unknown) (no date) (unknown) (unknown) clindamycin [CLINDAMYCIN] Allergy Unknown Verified 11/21/22 16:09 (units unknown) (unknown) (unknown) (no date) (unknown) (unknown) concerning symptoms, such as [fever greater than 101 F, shaking chills, (units unknown) (unknown) (unknown) (no date) (unknown) (unknown) constipation, melena. (units unknown) (unknown) (unknown) (no date) (unknown) (unknown) constipation. She [place] s severe pain to her left shoulder with any range of motion (units unknown) (unknown) (unknown) (no date) (unknown) (unknown) deformity, closed, isolated and neurovascularly intact (units unknown) (unknown) (unknown) (no date) (unknown) (unknown) denies any change in medications. She is not dizzy nor weak or lightheaded. (units unknown) (unknown) (unknown) (no date) (unknown) (unknown) diazepam 10 mg table t 10 mg PO QID #120 tabs 10/12/21 (units unknown) (unknown) (unknown) (no date) (unknown) (unknown) diazepam 10 mg tablet (units unknown) (unknown) (unknown) (no date) (unknown) (unknown) diazepam 5 mg tablet (Valium) 5 mg PO TID PRN muscle spasm #10 10/19/21 (units unknown) (unknown) (unknown) (no date) (unknown) (unknown) diazepam [Valium] 5 mg tablet (units unknown) (unknown) (unknown) (no date) (unknown) (unknown) diclofenac sodium 1 % gel (units unknown) (unknown) (unknown) (no date) (unknown) (unknown) diclofenac sodium 1 % topical gel 2 g topical QID #100 grams 05/05/22 (units unknown) (unknown) (unknown) (no date) (unknown) (unknown) dislocation versus other (units unknown) (unknown) (unknown) (no date) (unknown) (unknown) dizziness. (units unknown) (unknown) (unknown) (no date) (unknown) (unknown) doxycycline [DOXYCYCLINE] Allergy Mild Verified 11/21/22 16:09 (units unknown) (unknown) (unknown) (no date) (unknown) (unknown) epinephrine 0.3 mg/0.3 mL See Rx Instructions .Route 02/27/22 (units unknown) (unknown) (unknown) (no date) (unknown) (unknown) epinephrine 0.3 mg/0.3 mL auto-injector (units unknown) (unknown) (unknown) (no date) (unknown) (unknown) findings. (units unknown) (unknown) (unknown) (no date) (unknown) (unknown) forehead, alert, oriented, GCS 15, no midline neck pain, heart rate regular, no (units unknown) (unknown) (unknown) (no date) (unknown) (unknown) function as well as BUN within normal (units unknown) (unknown) (unknown) (no date) (unknown) (unknown) gastrointestinal bleeding without specific source presents by EMS for evaluation (units unknown) (unknown) (unknown) (no date) (unknown) (unknown) hand (units unknown) (unknown) (unknown) (no date) (unknown) (unknown) history and help get you set up with a doctor in the community. (units unknown) (unknown) (unknown) (no date) (unknown) (unknown) household members: spouse and children (units unknown) (unknown) (unknown) (no date) (unknown) (unknown) hydrocodone Allergy Mild rash Verified 11/21/22 16:09 (units unknown) (unknown) (unknown) (no date) (unknown) (unknown) imaging largely without significant findings, clavicle fracture is noted, she is (units unknown) (unknown) (unknown) (no date) (unknown) (unknown) increased work of breathing, left anterior shoulder pain without obvious (units unknown) (unknown) (unknown) (no date) (unknown) (unknown) injection, auto-injector .COMPLEX #2 ea (units unknown) (unknown) (unknown) (no date) (unknown) (unknown) injury and she is concerned that she broke or dislocated her shoulder. She (units unknown) (unknown) (unknown) (no date) (unknown) (unknown) injury with left shoulder pain. She has very reassuring history physical exam, (units unknown) (unknown) (unknown) (no date) (unknown) (unknown) iodine [IODINE] Allergy Mild Verified 11/21/22 16:09 (units unknown) (unknown) (unknown) (no date) (unknown) (unknown) lamotrigine 200 mg tablet 200 mg PO DAILY #30 tabs 01/18/22 (units unknown) (unknown) (unknown) (no date) (unknown) (unknown) lamotrigine 200 mg tablet (units unknown) (unknown) (unknown) (no date) (unknown) (unknown) latex [LATEX] Allerg y Unknown Verified 11/21/22 16:09 (units unknown) (unknown) (unknown) (no date) (unknown) (unknown) leukocytosis or left shift, no evidence of anemia, electrolytes and renal (units unknown) (unknown) (unknown) (no date) (unknown) (unknown) lidocaine AdvReac Palpitation Verified 11/21/22 16:09 (units unknown) (unknown) (unknown) (no date) (unknown) (unknown) lives independently: Yes (units unknown) (unknown) (unknown) (no date) (unknown) (unknown) marital status: (units unknown) (unknown) (unknown) (no date) (unknown) (unknown) metformin 500 mg tablet 500 mg PO BID #60 tabs 02/21/22 (units unknown) (unknown) (unknown) (no date) (unknown) (unknown) metformin 500 mg tablet (units unknown) (unknown) (unknown) (no date) (unknown) (unknown) metoclopramide Allergy Mild Verified 11/21/22 16:09 (units unknown) (unknown) (unknown) (no date) (unknown) (unknown) mg tablet (Percocet) (units unknown) (unknown) (unknown) (no date) (unknown) (unknown) mild distress. GCS 15 (units unknown) (unknown) (unknown) (no date) (unknown) (unknown) motion, closed, isolated and neurovascularly intact (units unknown) (unknown) (unknown) (no date) (unknown) (unknown) notes clavicle fracture (units unknown) (unknown) (unknown) (no date) (unknown) (unknown) occupational status: employed (units unknown) (unknown) (unknown) (no date) (unknown) (unknown) over the course of the visit (units unknown) (unknown) (unknown) (no date) (unknown) (unknown) oxycodone 10 mg tablet 5 mg PO Q6H PRN pain #14 tabs 05/05/22 (units unknown) (unknown) (unknown) (no date) (unknown) (unknown) oxycodone 10 mg tablet (units unknown) (unknown) (unknown) (no date) (unknown) (unknown) oxycodone-acetaminop h en 5 mg-325 1 tab PO Q8H PRN pain #6 tabs 04/22/22 (units unknown) (unknown) (unknown) (no date) (unknown) (unknown) oxycodone-acetaminop h en [Percocet] 5-325 mg tablet (units unknown) (unknown) (unknown) (no date) (unknown) (unknown) quetiapine 100 mg tablet 100 mg PO BEDTIME 02/27/22 02/27/22 (units unknown) (unknown) (unknown) (no date) (unknown) (unknown) quetiapine 100 mg tablet (units unknown) (unknown) (unknown) (no date) (unknown) (unknown) quetiapine 25 mg tablet See Rx Instructions PO BEDTIME #45 01/18/22 (units unknown) (unknown) (unknown) (no date) (unknown) (unknown) quetiapine 25 mg tablet (units unknown) (unknown) (unknown) (no date) (unknown) (unknown) rales, or rhonchi. (units unknown) (unknown) (unknown) (no date) (unknown) (unknown) received per another provider. (units unknown) (unknown) (unknown) (no date) (unknown) (unknown) s (units unknown) (unknown) (unknown) (no date) (unknown) (unknown) sertraline 100 mg tablet 200 mg PO DAILY #60 tabs 01/18/22 (units unknown) (unknown) (unknown) (no date) (unknown) (unknown) sertraline 100 mg tablet (units unknown) (unknown) (unknown) (no date) (unknown) (unknown) shellfish derived Allergy Severe ANAPHYLAXIS Verified 11/21/22 16:09 (units unknown) (unknown) (unknown) (no date) (unknown) (unknown) significant findings , chest x-ray and elbow without acute findings, shoulder (units unknown) (unknown) (unknown) (no date) (unknown) (unknown) splinted and pain is well controlled. Labs without significant abnormal (units unknown) (unknown) (unknown) (no date) (unknown) (unknown) sulfamethoxazole Allergy Mild RASH Verified 11/21/22 16:09 (units unknown) (unknown) (unknown) (no date) (unknown) (unknown) tabs (units unknown) (unknown) (unknown) (no date) (unknown) (unknown) tobacco type: vaping (units unknown) (unknown) (unknown) (no date) (unknown) (unknown) today's note if your PCP is in our system (units unknown) (unknown) (unknown) (no date) (unknown) (unknown) tramadol 50 mg table t 100 mg PO BID PRN severe pain 03/22/22 (units unknown) (unknown) (unknown) (no date) (unknown) (unknown) tramadol 50 mg tablet (units unknown) (unknown) (unknown) (no date) (unknown) (unknown) trazodone 100 mg tablet See Rx Instructions .Route 11/20/21 (units unknown) (unknown) (unknown) (no date) (unknown) (unknown) trazodone 100 mg tablet (units unknown) (unknown) (unknown) (no date) (unknown) (unknown) trimethoprim [From BACTRIM] Allergy Mild RASH Verified 11/21/22 16:09 (units unknown) (unknown) (unknown) (no date) (unknown) (unknown) upper GI bleed versu s seizures versus pseudoseizures versus fracture versus (units unknown) (unknown) (unknown) (no date) (unknown) (unknown) versus near-syncope and shoulder pain (units unknown) (unknown) (unknown) (no date) (unknown) (unknown) vomiting] (units unknown) (unknown) (unknown) (no date) (unknown) (unknown) without erythema, tonsillar hypertrophy or exudate. Airway patent. (units unknown) (unknown) (unknown) (no date) (unknown) (unknown) worsening pain, persistent vomiting or other bothersome symptoms] (units unknown) (unknown) Social History date description facility 2022-11-15 00:00 Smokes tobacco daily (finding) [facility] 2022-11-21 00:00 Ex-smoker (finding) [facility] Vital Signs date measurement value units 2022-11-15 [...]
[2022-12-12 18:33] VITALS: BP 128/79
== END 2022-12-12 18:32 | disposition home or self-care (01) ==
LOC: EDUNIT# → ED 16:05
DX: S41.112A Laceration without foreign body of left upper arm, initial encounter (principal); S20.211A Contusion of right front wall of thorax, initial encounter; W18.39XA Other fall on same level, initial encounter; Y92.009 Unspecified place in unspecified non-institutional (private) residence as the place of occurrence of the external cause; G40.909 Epilepsy, unspecified, not intractable, without status epilepticus; Z79.899 Other long term (current) drug therapy; Z91.040 Latex allergy status
CPT/HCPCS: 36415; 80053; 80177; 83690; 83735; 96374; 96375; 99284

== ENCOUNTER 2022-12-22 12:20 | Emergency (ER) | payer MEDICAID ==
[2022-12-22 13:11] LABS: BILIRUBIN,URINE NEGATIVE (NEGATIVE); CLARITY,URINE CLOUDY (CLEAR); GLUCOSE, URINE (UA) NEGATIVE (NEGATIVE); KETONES,URINE (UA) NEGATIVE (NEGATIVE); LEUKOCYTE ESTERASE, URINE NEGATIVE (NEGATIVE); NITRITE,URINE NEGATIVE (NEGATIVE); OCCULT BLOOD,URINE LARGE (NEGATIVE); PROTEIN,URINE 100 mg/dL (NEGATIVE); UROBILINOGEN,URINE 0.2 (NORMAL) E.U./dL (NORMAL)
[2022-12-22 13:19] LABS: RBC,URINE 0-5 /HPF (0-5); SQUAMOUS EPITHELIAL CELL,UR MOD Squamous (<= Few); WBC,URINE 0-3 /HPF (0-5)
[2022-12-22 13:20] LABS: BACTERIA,URINE Moderate /HPF (None Seen)
--- OUTSIDE RECORDS SUMMARY | 2022-12-22 13:20 | EXTERNAL MEDICAL SUMMARY RPT | Continuity of Care Document ---
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 Phone Estevan Castorena Unavailable Unavailable Allergies and Intolerances date description facility type (no date) Mild [facility] (unknown) (no date) Iodinated Contrast Media [facility] (unknown) (no date) Penicillins [facility] (unknown) (no date) adhesive [facility] (unknown) (no date) amoxicillin [facility] (unknown) (no date) cephalexin [facility] (unknown) (no date) ciprofloxacin [facility] (unknown) (no date) clindamycin [facility] (unknown) (no date) doxycycline [facility] (unknown) (no date) hydrocodone [facility] (unknown) (no date) iodine [facility] (unknown) (no date) latex [facility] (unknown) (no date) lidocaine [facility] (unknown) (no date) metoclopramide [facility] (unknown) (no date) shellfish derived [facility] (unknow n) (no date) sulfamethoxazole [facility] (unknown ) (no date) trimethoprim [facility] (unknown) Medications date description facility 2022-11-16 00:00 Levofloxacin [facility] Problems date description facility 2022-11-16 00:00 Urinary tract infection [facility] 2022-11-21 00:00 Vomiting [facility] 2022-11-21 00:00 Abrasion of forehead [facility] 2022-11-21 00:00 Shoulder separation [facility] Procedures date description facility 2022-11-15 00:00 Computed tomography of abdomen and pelvis without contrast [facility] 2022-11-21 00:00 XR elbow left, 3+ views [facility] 2022-11-21 00:00 XR shoulder left, 2+ views [facility] 2022-11-21 00:00 Computed tomography of head or brain without contrast [facility] 2022-11-21 00:00 X-ray of chest, single [facility] 2022-11-21 00:00 Computed tomography of cervical spine without contrast [facility] Results/Labs test date author facility value unit interpretation Result panel 1 (unknown) (no date) (unknown) [facility] (no value) (units unknown) (unknown) Result panel 2 (unknown) (no date) (unknown) [facility] (no value) (units unknown) (unknown) Result panel 3 (unknown) (no date) (unknown) [facility] (no value) (units unknown) (unknown) Result panel 4 (unknown) (no date) (unknown) [facility] (no value) (units unknown) (unknown) Result panel 5 (unknown) (no date) (unknown) [facility] (no value) (units unknown) (unknown) Result panel 6 (unknown) (no date) (unknown) [facility] (no value) (units unknown) (unknown) Result panel 7 (unknown) (no date) (unknown) [facility] (no value) (units unknown) (unknown) Result panel 8 (unknown) (no date) (unknown) [facility] (no value) (units unknown) (unknown) Result panel 9 (unknown) (no date) (unknown) [facility] (no value) (units unknown) (unknown) Result panel 10 (unknown) (no date) (unknown) [facility] (no value) (units unknown) (unknown) Result panel 11 (unknown) (no date) (unknown) [facility] (no value) (units unknown) (unknown) Result panel 12 (unknown) (no date) (unknown) [facility] (no value) (units unknown) (unknown) Result panel 13 (unknown) (no date) (unknown) [facility] (no value) (units unknown) (unknown) Result panel 14 (unknown) (no date) (unknown) [facility] (no value) (units unknown) (unknown) Result panel 15 (unknown) (no date) (unknown) [facility] (no value) (units unknown) (unknown) Result panel 16 (unknown) (no date) (unknown) [facility] (no value) (units unknown) (unknown) Result panel 17 (unknown) (no date) (unknown) [facility] (no value) (units unknown) (unknown) Result panel 18 (unknown) (no date) (unknown) [facility] (no value) (units unknown) (unknown) Result panel 19 (unknown) (no date) (unknown) [facility] (no value) (units unknown) (unknown) Result panel 20 (unknown) (no date) (unknown) [facility] (no value) (units unknown) (unknown) Result panel 21 (unknown) (no date) (unknown) [facility] (no value) (units unknown) (unknown) Result panel 22 (unknown) (no date) (unknown) [facility] (no value) (units unknown) (unknown) Result panel 23 (unknown) (no date) (unknown) [facility] (no value) (units unknown) (unknown) Result panel 24 (unknown) (no date) (unknown) [facility] (no value) (units unknown) (unknown) Result panel 25 (unknown) (no date) (unknown) [facility] (no value) (units unknown) (unknown) Result panel 26 (unknown) (no date) (unknown) [facility] (no value) (units unknown) (unknown) Result panel 27 (unknown) (no date) (unknown) [facility] (no value) (units unknown) (unknown) Result panel 28 (unknown) (no date) (unknown) [facility] (no value) (units unknown) (unknown) Result panel 29 (unknown) (no date) (unknown) [facility] (no value) (units unknown) (unknown) Result panel 30 (unknown) (no date) (unknown) [facility] (no value) (units unknown) (unknown) Result panel 31 (unknown) (no date) (unknown) [facility] (no value) (units unknown) (unknown) Result panel 32 (unknown) (no date) (unknown) [facility] (no value) (units unknown) (unknown) Result panel 33 (unknown) (no date) (unknown) [facility] (no value) (units unknown) (unknown) Result panel 34 (unknown) (no date) (unknown) [facility] (no value) (units unknown) (unknown) Result panel 35 (unknown) (no date) (unknown) [facility] (no value) (units unknown) (unknown) Result panel 36 (unknown) (no date) (unknown) [facility] (no value) (units unknown) (unknown) Result panel 37 (unknown) (no date) (unknown) [facility] (no value) (units unknown) (unknown) Result panel 38 (unknown) (no date) (unknown) [facility] (no value) (units unknown) (unknown) Result panel 39 (unknown) (no date) (unknown) [facility] (no value) (units unknown) (unknown) Result panel 40 (unknown) (no date) (unknown) [facility] (no value) (units unknown) (unknown) Result panel 41 (unknown) (no date) (unknown) [facility] (no value) (units unknown) (unknown) Result panel 42 (unknown) (no date) (unknown) [facility] (no value) (units unknown) (unknown) Result panel 43 (unknown) (no date) (unknown) [facility] (no value) (units unknown) (unknown) Result panel 44 (unknown) (no date) (unknown) [facility] (no value) (units unknown) (unknown) Result panel 45 (unknown) (no date) (unknown) [facility] (no value) (units unknown) (unknown) Result panel 46 (unknown) (no date) (unknown) [facility] (no value) (units unknown) (unknown) Result panel 47 (unknown) (no date) (unknown) [facility] (no value) (units unknown) (unknown) Result panel 48 (unknown) (no date) (unknown) [facility] (no value) (units unknown) (unknown) Result panel 49 (unknown) (no date) (unknown) [facility] (no value) (units unknown) (unknown) Result panel 50 (unknown) (no date) (unknown) [facility] (no value) (units unknown) (unknown) Result panel 51 (unknown) (no date) (unknown) [facility] (no value) (units unknown) (unknown) Result panel 52 (unknown) (no date) (unknown) [facility] (no value) (units unknown) (unknown) Result panel 53 (unknown) (no date) (unknown) [facility] (no value) (units unknown) (unknown) Result panel 54 (unknown) (no date) (unknown) [facility] (no value) (units unknown) (unknown) Result panel 55 (unknown) (no date) (unknown) [facility] (no value) (units unknown) (unknown) Result panel 56 (unknown) (no date) (unknown) [facility] (no value) (units unknown) (unknown) Result panel 57 (unknown) (no date) (unknown) [facility] (no value) (units unknown) (unknown) Result panel 58 (unknown) (no date) (unknown) [facility] (no value) (units unknown) (unknown) Result panel 59 (unknown) (no date) (unknown) [facility] (no value) (units unknown) (unknown) Result panel 60 (unknown) (no date) (unknown) [facility] (no value) (units unknown) (unknown) Result panel 61 (unknown) (no date) (unknown) [facility] (no value) (units unknown) (unknown) Result panel 62 (unknown) (no date) (unknown) [facility] (no value) (units unknown) (unknown) Result panel 63 (unknown) (no date) (unknown) [facility] (no value) (units unknown) (unknown) Result panel 64 (unknown) (no date) (unknown) [facility] (no value) (units unknown) (unknown) Result panel 65 (unknown) (no date) (unknown) [facility] (no value) (units unknown) (unknown) Result panel 66 (unknown) (no date) (unknown) [facility] (no value) (units unknown) (unknown) Result panel 67 (unknown) (no date) (unknown) [facility] (no value) (units unknown) (unknown) Result panel 68 (unknown) (no date) (unknown) [facility] (no value) (units unknown) (unknown) Result panel 69 (unknown) (no date) (unknown) [facility] (no value) (units unknown) (unknown) Result panel 70 (unknown) (no date) (unknown) [facility] (no value) (units unknown) (unknown) Result panel 71 (unknown) (no date) (unknown) [facility] (no value) (units unknown) (unknown) Result panel 72 (unknown) (no date) (unknown) [facility] (no value) (units unknown) (unknown) Result panel 73 (unknown) (no date) (unknown) [facility] (no value) (units unknown) (unknown) Result panel 74 (unknown) (no date) (unknown) [facility] (no value) (units unknown) (unknown) Result panel 75 (unknown) (no date) (unknown) [facility] (no value) (units unknown) (unknown) Result panel 76 (unknown) (no date) (unknown) [facility] (no value) (units unknown) (unknown) Result panel 77 (unknown) (no date) (unknown) [facility] (no value) (units unknown) (unknown) Result panel 78 (unknown) (no date) (unknown) [facility] (no value) (units unknown) (unknown) Result panel 79 (unknown) (no date) (unknown) [facility] (no value) (units unknown) (unknown) Result panel 80 (unknown) (no date) (unknown) [facility] (no value) (units unknown) (unknown) Result panel 81 (unknown) (no date) (unknown) [facility] (no value) (units unknown) (unknown) Result panel 82 (unknown) (no date) (unknown) [facility] (no value) (units unknown) (unknown) Result panel 83 (unknown) (no date) (unknown) [facility] (no value) (units unknown) (unknown) Result panel 84 (unknown) (no date) (unknown) [facility] (no value) (units unknown) (unknown) Result panel 85 (unknown) (no date) (unknown) [facility] (no value) (units unknown) (unknown) Result panel 86 (unknown) (no date) (unknown) [facility] (no value) (units unknown) (unknown) Result panel 87 (unknown) (no date) (unknown) [facility] (no value) (units unknown) (unknown) Result panel 88 (unknown) (no date) (unknown) [facility] (no value) (units unknown) (unknown) Result panel 89 (unknown) (no date) (unknown) [facility] (no value) (units unknown) (unknown) Result panel 90 (unknown) (no date) (unknown) [facility] (no value) (units unknown) (unknown) Result panel 91 (unknown) (no date) (unknown) [facility] (no value) (units unknown) (unknown) Result panel 92 (unknown) (no date) (unknown) [facility] (no value) (units unknown) (unknown) Result panel 93 (unknown) (no date) (unknown) [facility] (no value) (units unknown) (unknown) Result panel 94 (unknown) (no date) (unknown) [facility] (no value) (units unknown) (unknown) Result panel 95 (unknown) (no date) (unknown) [facility] (no value) (units unknown) (unknown) Result panel 96 (unknown) (no date) (unknown) [facility] (no value) (units unknown) (unknown) Result panel 97 (unknown) (no date) (unknown) [facility] (no value) (units unknown) (unknown) Result panel 98 (unknown) (no date) (unknown) [facility] (no value) (units unknown) (unknown) Result panel 99 (unknown) (no date) (unknown) [facility] (no value) (units unknown) (unknown) Result panel 100 (unknown) (no date) (unknown) [facility] (no value) (units unknown) (unknown) Result panel 101 (unknown) (no date) (unknown) [facility] (no value) (units unknown) (unknown) Result panel 102 (unknown) (no date) (unknown) [facility] (no value) (units unknown) (unknown) Result panel 103 (unknown) (no date) (unknown) [facility] (no value) (units unknown) (unknown) Result panel 104 (unknown) (no date) (unknown) [facility] (no value) (units unknown) (unknown) Result panel 105 (unknown) (no date) (unknown) [facility] (no value) (units unknown) (unknown) Result panel 106 (unknown) (no date) (unknown) [facility] (no value) (units unknown) (unknown) Result panel 107 (unknown) (no date) (unknown) [facility] (no value) (units unknown) (unknown) Result panel 108 (unknown) (no date) (unknown) [facility] (no value) (units unknown) (unknown) Result panel 109 (unknown) (no date) (unknown) [facility] (no value) (units unknown) (unknown) Result panel 110 (unknown) (no date) (unknown) [facility] (no value) (units unknown) (unknown) Result panel 111 (unknown) (no date) (unknown) [facility] (no value) (units unknown) (unknown) Result panel 112 (unknown) (no date) (unknown) [facility] (no value) (units unknown) (unknown) Result panel 113 (unknown) (no date) (unknown) [facility] (no value) (units unknown) (unknown) Result panel 114 (unknown) (no date) (unknown) [facility] (no value) (units unknown) (unknown) Result panel 115 (unknown) (no date) (unknown) [facility] (no value) (units unknown) (unknown) Result panel 116 (unknown) (no date) (unknown) [facility] (no value) (units unknown) (unknown) Result panel 117 (unknown) (no date) (unknown) [facility] (no value) (units unknown) (unknown) Result panel 118 (unknown) (no date) (unknown) [facility] (no value) (units unknown) (unknown) Result panel 119 (unknown) (no date) (unknown) [facility] (no value) (units unknown) (unknown) Result panel 120 (unknown) (no date) (unknown) [facility] (no value) (units unknown) (unknown) Result panel 121 (unknown) (no date) (unknown) [facility] (no value) (units unknown) (unknown) Result panel 122 (unknown) (no date) (unknown) [facility] (no value) (units unknown) (unknown) Result panel 123 (unknown) (no date) (unknown) [facility] (no value) (units unknown) (unknown) Result panel 124 (unknown) (no date) (unknown) [facility] (no value) (units unknown) (unknown) Result panel 125 (unknown) (no date) (unknown) [facility] (no value) (units unknown) (unknown) Result panel 126 (unknown) (no date) (unknown) [facility] (no value) (units unknown) (unknown) Result panel 127 (unknown) (no date) (unknown) [facility] (no value) (units unknown) (unknown) Result panel 128 (unknown) (no date) (unknown) [facility] (no value) (units unknown) (unknown) Result panel 129 (unknown) (no date) (unknown) [facility] (no value) (units unknown) (unknown) Result panel 130 (unknown) (no date) (unknown) [facility] (no value) (units unknown) (unknown) Result panel 131 (unknown) (no date) (unknown) [facility] (no value) (units unknown) (unknown) Result panel 132 (unknown) (no date) (unknown) [facility] (no value) (units unknown) (unknown) Result panel 133 (unknown) (no date) (unknown) [facility] (no value) (units unknown) (unknown) Result panel 134 (unknown) (no date) (unknown) [facility] (no value) (units unknown) (unknown) Result panel 135 (unknown) (no date) (unknown) [facility] (no value) (units unknown) (unknown) Result panel 136 (unknown) (no date) (unknown) [facility] (no value) (units unknown) (unknown) Result panel 137 (unknown) (no date) (unknown) [facility] (no value) (units unknown) (unknown) Result panel 138 (unknown) (no date) (unknown) [facility] (no value) (units unknown) (unknown) Result panel 139 (unknown) (no date) (unknown) [facility] (no value) (units unknown) (unknown) Result panel 140 (unknown) (no date) (unknown) [facility] (no value) (units unknown) (unknown) Result panel 141 (unknown) (no date) (unknown) [facility] (no value) (units unknown) (unknown) Result panel 142 (unknown) (no date) (unknown) [facility] (no value) (units unknown) (unknown) Result panel 143 (unknown) (no date) (unknown) [facility] (no value) (units unknown) (unknown) Result panel 144 (unknown) (no date) (unknown) [facility] (no value) (units unknown) (unknown) Result panel 145 (unknown) (no date) (unknown) [facility] (no value) (units unknown) (unknown) Result panel 146 (unknown) (no date) (unknown) [facility] (no value) (units unknown) (unknown) Result panel 147 (unknown) (no date) (unknown) [facility] (no value) (units unknown) (unknown) Result panel 148 (unknown) (no date) (unknown) [facility] (no value) (units unknown) (unknown) Result panel 149 (unknown) (no date) (unknown) [facility] (no value) (units unknown) (unknown) Result panel 150 (unknown) (no date) (unknown) [facility] (no value) (units unknown) (unknown) Result panel 151 (unknown) (no date) (unknown) [facility] (no value) (units unknown) (unknown) Result panel 152 (unknown) (no date) (unknown) [facility] (no value) (units unknown) (unknown) Result panel 153 (unknown) (no date) (unknown) [facility] (no value) (units unknown) (unknown) Result panel 154 (unknown) (no date) (unknown) [facility] (no value) (units unknown) (unknown) Result panel 155 (unknown) (no date) (unknown) [facility] (no value) (units unknown) (unknown) Result panel 156 (unknown) (no date) (unknown) [facility] (no value) (units unknown) (unknown) Result panel 157 (unknown) (no date) (unknown) [facility] (no value) (units unknown) (unknown) Result panel 158 (unknown) (no date) (unknown) [facility] (no value) (units unknown) (unknown) Result panel 159 (unknown) (no date) (unknown) [facility] (no value) (units unknown) (unknown) Result panel 160 (unknown) (no date) (unknown) [facility] (no value) (units unknown) (unknown) Result panel 161 (unknown) (no date) (unknown) [facility] (no value) (units unknown) (unknown) Result panel 162 (unknown) (no date) (unknown) [facility] (no value) (units unknown) (unknown) Result panel 163 (unknown) (no date) (unknown) [facility] (no value) (units unknown) (unknown) Result panel 164 (unknown) (no date) (unknown) [facility] (no value) (units unknown) (unknown) Result panel 165 (unknown) (no date) (unknown) [facility] (no value) (units unknown) (unknown) Result panel 166 (unknown) (no date) (unknown) [facility] (no value) (units unknown) (unknown) Result panel 167 (unknown) (no date) (unknown) [facility] (no value) (units unknown) (unknown) Result panel 168 (unknown) (no date) (unknown) [facility] (no value) (units unknown) (unknown) Result panel 169 (unknown) (no date) (unknown) [facility] (no value) (units unknown) (unknown) Result panel 170 (unknown) (no date) (unknown) [facility] (no value) (units unknown) (unknown) Result panel 171 (unknown) (no date) (unknown) [facility] (no value) (units unknown) (unknown) Result panel 172 (unknown) (no date) (unknown) [facility] (no value) (units unknown) (unknown) Result panel 173 (unknown) (no date) (unknown) [facility] (no value) (units unknown) (unknown) Result panel 174 (unknown) (no date) (unknown) [facility] (no value) (units unknown) (unknown) Result panel 175 (unknown) (no date) (unknown) [facility] (no value) (units unknown) (unknown) Result panel 176 (unknown) (no date) (unknown) [facility] (no value) (units unknown) (unknown) Result panel 177 (unknown) (no date) (unknown) [facility] (no value) (units unknown) (unknown) Result panel 178 (unknown) (no date) (unknown) [facility] (no value) (units unknown) (unknown) Result panel 179 (unknown) (no date) (unknown) [facility] (no value) (units unknown) (unknown) Result panel 180 (unknown) (no date) (unknown) [facility] (no value) (units unknown) (unknown) Result panel 181 (unknown) (no date) (unknown) [facility] (no value) (units unknown) (unknown) Result panel 182 (unknown) (no date) (unknown) [facility] (no value) (units unknown) (unknown) Result panel 183 (unknown) (no date) (unknown) [facility] (no value) (units unknown) (unknown) Result panel 184 (unknown) (no date) (unknown) [facility] (no value) (units unknown) (unknown) Result panel 185 (unknown) (no date) (unknown) [facility] (no value) (units unknown) (unknown) Result panel 186 (unknown) (no date) (unknown) [facility] (no value) (units unknown) (unknown) Result panel 187 (unknown) (no date) (unknown) [facility] (no value) (units unknown) (unknown) Result panel 188 (unknown) (no date) (unknown) [facility] (no value) (units unknown) (unknown) Result panel 189 (unknown) (no date) (unknown) [facility] (no value) (units unknown) (unknown) Result panel 190 (unknown) (no date) (unknown) [facility] (no value) (units unknown) (unknown) Result panel 191 (unknown) (no date) (unknown) [facility] (no value) (units unknown) (unknown) Result panel 192 (unknown) (no date) (unknown) [facility] (no value) (units unknown) (unknown) Result panel 193 (unknown) (no date) (unknown) [facility] (no value) (units unknown) (unknown) Result panel 194 (unknown) (no date) (unknown) [facility] (no value) (units unknown) (unknown) Result panel 195 (unknown) (no date) (unknown) [facility] (no value) (units unknown) (unknown) Result panel 196 (unknown) (no date) (unknown) [facility] (no value) (units unknown) (unknown) Result panel 197 (unknown) (no date) (unknown) [facility] (no value) (units unknown) (unknown) Result panel 198 (unknown) (no date) (unknown) [facility] (no value) (units unknown) (unknown) Result panel 199 (unknown) (no date) (unknown) [facility] (no value) (units unknown) (unknown) Result panel 200 (unknown) (no date) (unknown) [facility] (no value) (units unknown) (unknown) Result panel 201 (unknown) (no date) (unknown) [facility] (no value) (units unknown) (unknown) Result panel 202 (unknown) (no date) (unknown) [facility] (no value) (units unknown) (unknown) Result panel 203 (unknown) (no date) (unknown) [facility] (no value) (units unknown) (unknown) Result panel 204 (unknown) (no date) (unknown) [facility] (no value) (units unknown) (unknown) Result panel 205 (unknown) (no date) (unknown) [facility] (no value) (units unknown) (unknown) Result panel 206 (unknown) (no date) (unknown) [facility] (no value) (units unknown) (unknown) Result panel 207 (unknown) (no date) (unknown) [facility] (no value) (units unknown) (unknown) Result panel 208 (unknown) (no date) (unknown) [facility] (no value) (units unknown) (unknown) Result panel 209 (unknown) (no date) (unknown) [facility] (no value) (units unknown) (unknown) Result panel 210 (unknown) (no date) (unknown) [facility] (no value) (units unknown) (unknown) Result panel 211 (unknown) (no date) (unknown) [facility] (no value) (units unknown) (unknown) Result panel 212 (unknown) (no date) (unknown) [facility] (no value) (units unknown) (unknown) Result panel 213 (unknown) (no date) (unknown) [facility] (no value) (units unknown) (unknown) Result panel 214 (unknown) (no date) (unknown) [facility] (no value) (units unknown) (unknown) Result panel 215 (unknown) (no date) (unknown) [facility] (no value) (units unknown) (unknown) Result panel 216 (unknown) (no date) (unknown) [facility] (no value) (units unknown) (unknown) Result panel 217 (unknown) (no date) (unknown) [facility] (no value) (units unknown) (unknown) Result panel 218 (unknown) (no date) (unknown) [facility] (no value) (units unknown) (unknown) Result panel 219 (unknown) (no date) (unknown) [facility] (no value) (units unknown) (unknown) Result panel 220 (unknown) (no date) (unknown) [facility] (no value) (units unknown) (unknown) Result panel 221 (unknown) (no date) (unknown) [facility] (no value) (units unknown) (unknown) Result panel 222 (unknown) (no date) (unknown) [facility] (no value) (units unknown) (unknown) Result panel 223 (unknown) (no date) (unknown) [facility] (no value) (units unknown) (unknown) Result panel 224 (unknown) (no date) (unknown) [facility] (no value) (units unknown) (unknown) Result panel 225 (unknown) (no date) (unknown) [facility] (no value) (units unknown) (unknown) Result panel 226 (unknown) (no date) (unknown) [facility] (no value) (units unknown) (unknown) Result panel 227 (unknown) (no date) (unknown) [facility] (no value) (units unknown) (unknown) Result panel 228 (unknown) (no date) (unknown) [facility] (no value) (units unknown) (unknown) Result panel 229 (unknown) (no date) (unknown) [facility] (no value) (units unknown) (unknown) Result panel 230 (unknown) (no date) (unknown) [facility] (no value) (units unknown) (unknown) Result panel 231 (unknown) (no date) (unknown) [facility] (no value) (units unknown) (unknown) Result panel 232 (unknown) (no date) (unknown) [facility] (no value) (units unknown) (unknown) Result panel 233 (unknown) (no date) (unknown) [facility] (no value) (units unknown) (unknown) Result panel 234 (unknown) (no date) (unknown) [facility] (no value) (units unknown) (unknown) Result panel 235 (unknown) (no date) (unknown) [facility] (no value) (units unknown) (unknown) Result panel 236 (unknown) (no date) (unknown) [facility] (no value) (units unknown) (unknown) Result panel 237 (unknown) (no date) (unknown) [facility] (no value) (units unknown) (unknown) Result panel 238 (unknown) (no date) (unknown) [facility] (no value) (units unknown) (unknown) Result panel 239 (unknown) (no date) (unknown) [facility] (no value) (units unknown) (unknown) Result panel 240 (unknown) (no date) (unknown) [facility] (no value) (units unknown) (unknown) Result panel 241 (unknown) (no date) (unknown) [facility] (no value) (units unknown) (unknown) Result panel 242 (unknown) (no date) (unknown) [facility] (no value) (units unknown) (unknown) Result panel 243 (unknown) (no date) (unknown) [facility] (no value) (units unknown) (unknown) Result panel 244 (unknown) (no date) (unknown) [facility] (no value) (units unknown) (unknown) Result panel 245 (unknown) (no date) (unknown) [facility] (no value) (units unknown) (unknown) Result panel 246 (unknown) (no date) (unknown) [facility] (no value) (units unknown) (unknown) Result panel 247 (unknown) (no date) (unknown) [facility] (no value) (units unknown) (unknown) Result panel 248 (unknown) (no date) (unknown) [facility] (no value) (units unknown) (unknown) Result panel 249 (unknown) (no date) (unknown) [facility] (no value) (units unknown) (unknown) Result panel 250 (unknown) (no date) (unknown) [facility] (no value) (units unknown) (unknown) Result panel 251 (unknown) (no date) (unknown) [facility] (no value) (units unknown) (unknown) Result panel 252 (unknown) (no date) (unknown) [facility] (no value) (units unknown) (unknown) Result panel 253 (unknown) (no date) (unknown) [facility] (no value) (units unknown) (unknown) Result panel 254 (unknown) (no date) (unknown) [facility] (no value) (units unknown) (unknown) Result panel 255 (unknown) (no date) (unknown) [facility] (no value) (units unknown) (unknown) Result panel 256 (unknown) (no date) (unknown) [facility] (no value) (units unknown) (unknown) Result panel 257 (unknown) (no date) (unknown) [facility] (no value) (units unknown) (unknown) Result panel 258 (unknown) (no date) (unknown) [facility] (no value) (units unknown) (unknown) Result panel 259 (unknown) (no date) (unknown) [facility] (no value) (units unknown) (unknown) Result panel 260 (unknown) (no date) (unknown) [facility] (no value) (units unknown) (unknown) Result panel 261 (unknown) (no date) (unknown) [facility] (no value) (units unknown) (unknown) Result panel 262 (unknown) (no date) (unknown) [facility] (no value) (units unknown) (unknown) Result panel 263 (unknown) (no date) (unknown) [facility] (no value) (units unknown) (unknown) Result panel 264 (unknown) (no date) (unknown) [facility] (no value) (units unknown) (unknown) Result panel 265 (unknown) (no date) (unknown) [facility] (no value) (units unknown) (unknown) Result panel 266 (unknown) (no date) (unknown) [facility] (no value) (units unknown) (unknown) Result panel 267 (unknown) (no date) (unknown) [facility] (no value) (units unknown) (unknown) Result panel 268 (unknown) (no date) (unknown) [facility] (no value) (units unknown) (unknown) Result panel 269 (unknown) (no date) (unknown) [facility] (no value) (units unknown) (unknown) Result panel 270 (unknown) (no date) (unknown) [facility] (no value) (units unknown) (unknown) Result panel 271 (unknown) (no date) (unknown) [facility] (no value) (units unknown) (unknown) Result panel 272 (unknown) (no date) (unknown) [facility] (no value) (units unknown) (unknown) Result panel 273 (unknown) (no date) (unknown) [facility] (no value) (units unknown) (unknown) Result panel 274 (unknown) (no date) (unknown) [facility] (no value) (units unknown) (unknown) Result panel 275 (unknown) (no date) (unknown) [facility] (no value) (units unknown) (unknown) Result panel 276 (unknown) (no date) (unknown) [facility] (no value) (units unknown) (unknown) Result panel 277 (unknown) (no date) (unknown) [facility] (no value) (units unknown) (unknown) Result panel 278 (unknown) (no date) (unknown) [facility] (no value) (units unknown) (unknown) Result panel 279 (unknown) (no date) (unknown) [facility] (no value) (units unknown) (unknown) Result panel 280 (unknown) (no date) (unknown) [facility] (no value) (units unknown) (unknown) Result panel 281 (unknown) (no date) (unknown) [facility] (no value) (units unknown) (unknown) Result panel 282 (unknown) (no date) (unknown) [facility] (no value) (units unknown) (unknown) Result panel 283 (unknown) (no date) (unknown) [facility] (no value) (units unknown) (unknown) Result panel 284 (unknown) (no date) (unknown) [facility] (no value) (units unknown) (unknown) Result panel 285 (unknown) (no date) (unknown) [facility] (no value) (units unknown) (unknown) Result panel 286 (unknown) (no date) (unknown) [facility] (no value) (units unknown) (unknown) Result panel 287 (unknown) (no date) (unknown) [facility] (no value) (units unknown) (unknown) Result panel 288 (unknown) (no date) (unknown) [facility] (no value) (units unknown) (unknown) Result panel 289 (unknown) (no date) (unknown) [facility] (no value) (units unknown) (unknown) Result panel 290 (unknown) (no date) (unknown) [facility] (no value) (units unknown) (unknown) Result panel 291 (unknown) (no date) (unknown) [facility] (no value) (units unknown) (unknown) Result panel 292 (unknown) (no date) (unknown) [facility] (no value) (units unknown) (unknown) Result panel 293 (unknown) (no date) (unknown) [facility] (no value) (units unknown) (unknown) Result panel 294 (unknown) (no date) (unknown) [facility] (no value) (units unknown) (unknown) Result panel 295 (unknown) (no date) (unknown) [facility] (no value) (units unknown) (unknown) Result panel 296 (unknown) (no date) (unknown) [facility] (no value) (units unknown) (unknown) Result panel 297 (unknown) (no date) (unknown) [facility] (no value) (units unknown) (unknown) Result panel 298 (unknown) (no date) (unknown) [facility] (no value) (units unknown) (unknown) Result panel 299 (unknown) (no date) (unknown) [facility] (no value) (units unknown) (unknown) Result panel 300 (unknown) (no date) (unknown) [facility] (no value) (units unknown) (unknown) Result panel 301 (unknown) (no date) (unknown) [facility] (no value) (units unknown) (unknown) Result panel 302 (unknown) (no date) (unknown) [facility] (no value) (units unknown) (unknown) Result panel 303 (unknown) (no date) (unknown) [facility] (no value) (units unknown) (unknown) Result panel 304 (unknown) (no date) (unknown) [facility] (no value) (units unknown) (unknown) Result panel 305 (unknown) (no date) (unknown) [facility] (no value) (units unknown) (unknown) Result panel 306 (unknown) (no date) (unknown) [facility] (no value) (units unknown) (unknown) Result panel 307 (unknown) (no date) (unknown) [facility] (no value) (units unknown) (unknown) Result panel 308 (unknown) (no date) (unknown) [facility] (no value) (units unknown) (unknown) Result panel 309 (unknown) (no date) (unknown) [facility] (no value) (units unknown) (unknown) Result panel 310 (unknown) (no date) (unknown) [facility] (no value) (units unknown) (unknown) Result panel 311 (unknown) (no date) (unknown) [facility] (no value) (units unknown) (unknown) Result panel 312 (unknown) (no date) (unknown) [facility] (no value) (units unknown) (unknown) Result panel 313 (unknown) (no date) (unknown) [facility] (no value) (units unknown) (unknown) Result panel 314 (unknown) (no date) (unknown) [facility] (no value) (units unknown) (unknown) Result panel 315 (unknown) (no date) (unknown) [facility] (no value) (units unknown) (unknown) Result panel 316 (unknown) (no date) (unknown) [facility] (no value) (units unknown) (unknown) Result panel 317 (unknown) (no date) (unknown) [facility] (no value) (units unknown) (unknown) Result panel 318 (unknown) (no date) (unknown) [facility] (no value) (units unknown) (unknown) Result panel 319 (unknown) (no date) (unknown) [facility] (no value) (units unknown) (unknown) Result panel 320 (unknown) (no date) (unknown) [facility] (no value) (units unknown) (unknown) Result panel 321 (unknown) (no date) (unknown) [facility] (no value) (units unknown) (unknown) Result panel 322 (unknown) (no date) (unknown) [facility] (no value) (units unknown) (unknown) Result panel 323 (unknown) (no date) (unknown) [facility] (no value) (units unknown) (unknown) Result panel 324 (unknown) (no date) (unknown) [facility] (no value) (units unknown) (unknown) Result panel 325 (unknown) (no date) (unknown) [facility] (no value) (units unknown) (unknown) Result panel 326 (unknown) (no date) (unknown) [facility] (no value) (units unknown) (unknown) Result panel 327 (unknown) (no date) (unknown) [facility] (no value) (units unknown) (unknown) Result panel 328 (unknown) (no date) (unknown) [facility] (no value) (units unknown) (unknown) Result panel 329 (unknown) (no date) (unknown) [facility] (no value) (units unknown) (unknown) Result panel 330 (unknown) (no date) (unknown) [facility] (no value) (units unknown) (unknown) Result panel 331 (unknown) (no date) (unknown) [facility] (no value) (units unknown) (unknown) Result panel 332 (unknown) (no date) (unknown) [facility] (no value) (units unknown) (unknown) Result panel 333 (unknown) (no date) (unknown) [facility] (no value) (units unknown) (unknown) Result panel 334 (unknown) (no date) (unknown) [facility] (no value) (units unknown) (unknown) Result panel 335 (unknown) (no date) (unknown) [facility] (no value) (units unknown) (unknown) Result panel 336 (unknown) (no date) (unknown) [facility] (no value) (units unknown) (unknown) Result panel 337 (unknown) (no date) (unknown) [facility] (no value) (units unknown) (unknown) Result panel 338 (unknown) (no date) (unknown) [facility] (no value) (units unknown) (unknown) Result [...] (unknown) (unknown) (no date) (unknown) (unknown) : [id number] (units unknown) (unknown) (unknown) (no date) (unknown) [...] (unknown) (no date) (unknown) (unknown) : 1995 Acct:[id number] (units unknown) (unknown) (unknown) (no date) (unknown) [...] unknown) (unknown) (unknown) (no date) (unknown) (unknown) [address] [address] (units unknown) (unknown) (unknown) (no date) (unknown) [...] date) (unknown) (unknown) Christi Johnson , DNP, GAME ARTIST [Primary Care Provider] (units unknown) (unknown) (unknown) [...] (unknown) (unknown) (no date) (unknown) (unknown) : [id number] (units unknown) (unknown) (unknown) (no date) (unknown) [...] (unknown) (no date) (unknown) (unknown) : 1995 Acct:[id number] (units unknown) (unknown) (unknown) (no date) (unknown) [...] unknown) (unknown) (unknown) (no date) (unknown) (unknown) [address] [address] (units unknown) (unknown) (unknown) (no date) (unknown) [...] date) (unknown) (unknown) Christi Johnson , JORDAN, GAME ARTIST [Primary Care Provider] (units unknown) (unknown) (unknown) [...] (unknown) (unknown) (no date) (unknown) (unknown) #: [id number] (units unknown) (unknown) (unknown) (no date) (unknown) (unknown) 11/15/22 (units unknown) (unknown) (unknown) (no date) (unknown) (unknown) [facility] [address] [place] [address] (units unknown) (unknown) (unknown) (no date) (unknown) (unknown) 5 mm (units unknown) (unknown) (unknown) (no date) (unknown) (unknown) Accession Number: [id number] (units unknown) (unknown) (unknown) (no date) (unknown) (unknown) Age/Sex: 27 / F Date of Service: (units unknown) (unknown) (unknown) (no date) (unknown) (unknown) [place] [address] (units unknown) (unknown) (unknown) (no date) (unknown) [...] (unknown) (unknown) (no date) (unknown) (unknown) COMPARISON: [facility], MR, MR ABDOMEN MRCP, 06/12/2022, 10:50. (units [...] (unknown) (no date) (unknown) (unknown) : 1995 Acct:[id number] (units unknown) (unknown) (unknown) (no date) (unknown) [...] unknown) (unknown) (unknown) (no date) (unknown) (unknown) [facility] (units unknown) (unknown) (unknown) (no date) [...] unknown) (unknown) (unknown) (no date) (unknown) (unknown) [facility] (units unknown) (unknown) (unknown) (no date) (unknown) (unknown) Solid organs: Liver is unremarkable. 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 No pathologic (units unknown) (unknown) (unknown) (no date) (unknown) (unknown) TECHNIQUE: (units unknown) (unknown) (unknown) (no date) (unknown) (unknown) , CT, CT ABDOMEN PELVIS WITHOUT CONTRAST, 06/11/2022, 19:33. (units unknown) (unknown) (unknown) (no date) (unknown) (unknown) , MR, MR ABDOMEN MRCP, 06/12/2022, 10:50. (units [...] (unknown) (unknown) (no date) (unknown) (unknown) : [id number] (units unknown) (unknown) (unknown) (no date) (unknown) [...] (unknown) (no date) (unknown) (unknown) : 1995 Acct:[id number] (units unknown) (unknown) (unknown) (no date) (unknown) [...] unknown) (unknown) (unknown) (no date) (unknown) (unknown) [address] [address] (units unknown) (unknown) (unknown) (no date) (unknown) [...] (no date) (unknown) (unknown) Lymph # (Auto) (4769-3502) /uL (units unknown) (unknown) (unknown) (no date) (unknown) (unknown) Lymph # (Auto) 2200 (9490-9613) /uL (units unknown) (unknown) (unknown) (no date) [...] unknown) (unknown) (unknown) (no date) (unknown) (unknown) [place] # (Auto) (0-900 ) /uL (units unknown) (unknown) (unknown) (no date) (unknown) (unknown) [place] # (Auto) 400 (0-900) /uL (units unknown) (unknown) (unknown) (no date) (unknown) (unknown) [place] % (Auto) (3-14) % (units unknown) (unknown) (unknown) (no date) (unknown) (unknown) [place] % (Auto) 6.9 (3-14) % (units unknown) (unknown) (unknown) (no date) (unknown) (unknown) Morbid obesity (units unknown) (unknown) (unknown) (no date) (unknown) (unknown) Mother BRCA positive (units unknown) (unknown) (unknown) (no date) (unknown) (unknown) Nephrolithiasis (-2018) (units unknown) (unknown) (unknown) (no date) (unknown) (unknown) Neut # (Auto) (7756-3341) /uL (units unknown) (unknown) (unknown) (no date) (unknown) (unknown) Neut # (Auto) 3500 (0443-7962) /uL (units unknown) (unknown) (unknown) (no date) [...] (unknown) (no date) (unknown) (unknown) Ur Specific [place] (1.000-1.035) (units unknown) (unknown) (unknown) (no date) (unknown) (unknown) Ur Specific [place] 1.025 (1.000-1.035) (units unknown) (unknown) (unknown) (no [...] (unknown) (no date) (unknown) (unknown) Urine Specific [place] 1.020 (units unknown) (unknown) (unknown) (no date) [...] date) (unknown) (unknown) Christi Johnson , JORDAN, GAME ARTIST [Primary Care Provider] (units unknown) (unknown) (unknown) [...] (unknown) (unknown) (no date) (unknown) (unknown) : [id number] (units unknown) (unknown) (unknown) (no date) (unknown) [...] (unknown) (no date) (unknown) (unknown) : 1995 Acct:[id number] (units unknown) (unknown) (unknown) (no date) (unknown) [...] unknown) (unknown) (unknown) (no date) (unknown) (unknown) [address] [address] (units unknown) (unknown) (unknown) (no date) (unknown) [...] (no date) (unknown) (unknown) Lymph # (Auto) (0683-7786) /uL (units unknown) (unknown) (unknown) (no date) (unknown) (unknown) Lymph # (Auto) 2200 (2065-2967) /uL (units unknown) (unknown) (unknown) (no date) [...] unknown) (unknown) (unknown) (no date) (unknown) (unknown) [place] # (Auto) (0-900 ) /uL (units unknown) (unknown) (unknown) (no date) (unknown) (unknown) [place] # (Auto) 400 (0-900) /uL (units unknown) (unknown) (unknown) (no date) (unknown) (unknown) [place] % (Auto) (3-14) % (units unknown) (unknown) (unknown) (no date) (unknown) (unknown) [place] % (Auto) 6.9 (3-14) % (units unknown) [...] (no date) (unknown) (unknown) Neut # (Auto) (8861-7055) /uL (units unknown) (unknown) (unknown) (no date) (unknown) (unknown) Neut # (Auto) 3500 (2426-0975) /uL (units unknown) (unknown) (unknown) (no date) [...] unknown) (unknown) (unknown) (no date) (unknown) (unknown) [facility] recently for an EGD which she was [...] (unknown) (no date) (unknown) (unknown) Ur Specific [place] (1.000-1.035) (units unknown) (unknown) (unknown) (no date) (unknown) (unknown) Ur Specific [place] 1.025 (1.000-1.035) (units unknown) (unknown) (unknown) (no [...] (unknown) (no date) (unknown) (unknown) Urine Specific [place] 1.020 (units unknown) (unknown) (unknown) (no date) [...] date) (unknown) (unknown) Christi Johnson , DNP, GAME ARTIST [Primary Care Provider] (units unknown) (unknown) (unknown) [...] (unknown) (unknown) through XII grossly intact. [Good uyvdub-fx-ojjj, good karx-lu-ydyh, strength (units unknown) (unknown) (unknown) (no date) [...] (unknown) (unknown) (no date) (unknown) (unknown) : [id number] (units unknown) (unknown) (unknown) (no date) (unknown) [...] (unknown) (no date) (unknown) (unknown) : 1995 Acct:[id number] (units unknown) (unknown) (unknown) (no date) (unknown) [...] unknown) (unknown) (unknown) (no date) (unknown) (unknown) [address] [address] (units unknown) (unknown) (unknown) (no date) (unknown) [...] (no date) (unknown) (unknown) Lymph # (Auto) (4122-9816) /uL (units unknown) (unknown) (unknown) (no date) (unknown) (unknown) Lymph # (Auto) 2200 (3219-1562) /uL (units unknown) (unknown) (unknown) (no date) [...] unknown) (unknown) (unknown) (no date) (unknown) (unknown) [place] # (Auto) (0-900 ) /uL (units unknown) (unknown) (unknown) (no date) (unknown) (unknown) [place] # (Auto) 400 (0-900) /uL (units unknown) (unknown) (unknown) (no date) (unknown) (unknown) [place] % (Auto) (3-14) % (units unknown) (unknown) (unknown) (no date) (unknown) (unknown) [place] % (Auto) 6.9 (3-14) % (units unknown) (unknown) (unknown) (no date) (unknown) (unknown) Morbid obesity (units unknown) (unknown) (unknown) (no date) (unknown) (unknown) Mother BRCA positive (units unknown) (unknown) (unknown) (no date) (unknown) (unknown) NEUROLOGICAL: Alert and oriented x4.Normal gait and speech. (units unknown) (unknown) (unknown) (no date) (unknown) (unknown) Nephrolithiasis () (units unknown) (unknown) (unknown) (no date) (unknown) (unknown) Neut # (Auto) (4421-7302) /uL (units unknown) (unknown) (unknown) (no date) (unknown) (unknown) Neut # (Auto) 3500 (6221-5534) /uL (units unknown) (unknown) (unknown) (no date) [...] unknown) (unknown) (unknown) (no date) (unknown) (unknown) [facility] recently for an EGD which she was [...] (unknown) (no date) (unknown) (unknown) Ur Specific [place] (1.000-1.035) (units unknown) (unknown) (unknown) (no date) (unknown) (unknown) Ur Specific [place] 1.025 (1.000-1.035) (units unknown) (unknown) (unknown) (no [...] (unknown) (no date) (unknown) (unknown) Urine Specific [place] 1.020 (units unknown) (unknown) (unknown) (no date) [...] date) (unknown) (unknown) Christi Johnson , DNP, GAME ARTIST [Primary Care Provider] (units unknown) (unknown) (unknown) [...] (unknown) (unknown) (no date) (unknown) (unknown) : [id number] (units unknown) (unknown) (unknown) (no date) (unknown) [...] (unknown) (unknown) (no date) (unknown) (unknown) COMPARISON:? [facility], MR, MR ABDOMEN MRCP, 06/12/2022, 10:50.? (units [...] (unknown) (no date) (unknown) (unknown) : 1995 Acct:[id number] (units unknown) (unknown) (unknown) (no date) (unknown) [...] unknown) (unknown) (unknown) (no date) (unknown) (unknown) [address] [address] (units unknown) (unknown) (unknown) (no date) (unknown) [...] (no date) (unknown) (unknown) Lymph # (Auto) (5278-7797) /uL (units unknown) (unknown) (unknown) (no date) (unknown) (unknown) Lymph # (Auto) 2200 (0148-7123) /uL (units unknown) (unknown) (unknown) (no date) [...] unknown) (unknown) (unknown) (no date) (unknown) (unknown) [place] # (Auto) (0-900 ) /uL (units unknown) (unknown) (unknown) (no date) (unknown) (unknown) [place] # (Auto) 400 (0-900) /uL (units unknown) (unknown) (unknown) (no date) (unknown) (unknown) [place] % (Auto) (3-14) % (units unknown) (unknown) (unknown) (no date) (unknown) (unknown) [place] % (Auto) 6.9 (3-14) % (units unknown) (unknown) (unknown) (no date) (unknown) (unknown) Morbid obesity (units unknown) (unknown) (unknown) (no date) (unknown) (unknown) Mother BRCA positive (units unknown) (unknown) (unknown) (no date) (unknown) (unknown) NEUROLOGICAL: Alert and oriented x4.Normal gait and speech. (units unknown) (unknown) (unknown) (no date) (unknown) (unknown) Nephrolithiasis (-2017) (units unknown) (unknown) (unknown) (no date) (unknown) (unknown) Neut # (Auto) (9146-7153) /uL (units unknown) (unknown) (unknown) (no date) (unknown) (unknown) Neut # (Auto) 3500 (8959-5374) /uL (units unknown) (unknown) (unknown) (no date) [...] unknown) (unknown) (unknown) (no date) (unknown) (unknown) [facility] recently for an EGD which she was found to have erosive (units unknown) (unknown) (unknown) (no date) (unknown) (unknown) [facility] (units unknown) (unknown) (unknown) (no date) [...] (unknown) (no date) (unknown) (unknown) Ur Specific [place] (1.000-1.035) (units unknown) (unknown) (unknown) (no date) (unknown) (unknown) Ur Specific [place] 1.025 (1.000-1.035) (units unknown) (unknown) (unknown) (no [...] (unknown) (no date) (unknown) (unknown) Urine Specific [place] 1.020 (units unknown) (unknown) (unknown) (no date) [...] unknown) (unknown) (unknown) (no date) (unknown) (unknown) , CT, CT ABDOMEN PELVIS WITHOUT CONTRAST, 06/11/2022, 19:33.? (units unknown) (unknown) (unknown) (no date) (unknown) (unknown) , MR, MR ABDOMEN MRCP, 06/12/2022, 10:50. (units [...] date) (unknown) (unknown) Christi Johnson , JORDAN, GAME ARTIST [Primary Care Provider] (units unknown) (unknown) (unknown) [...] (unknown) (unknown) (no date) (unknown) (unknown) : [id number] (units unknown) (unknown) (unknown) (no date) (unknown) [...] (unknown) (unknown) (no date) (unknown) (unknown) COMPARISON:? [facility], MR, MR ABDOMEN MRCP, 06/12/2022, 10:50.? (units [...] (unknown) (no date) (unknown) (unknown) : 1995 Acct:[id number] (units unknown) (unknown) (unknown) (no date) (unknown) [...] unknown) (unknown) (unknown) (no date) (unknown) (unknown) [place] [address] (units unknown) (unknown) (unknown) (no date) (unknown) [...] (no date) (unknown) (unknown) Lymph # (Auto) (8888-9031) /uL (units unknown) (unknown) (unknown) (no date) (unknown) (unknown) Lymph # (Auto) 2200 (1784-8138) /uL (units unknown) (unknown) (unknown) (no date) [...] unknown) (unknown) (unknown) (no date) (unknown) (unknown) [place] # (Auto) (0-900 ) /uL (units unknown) (unknown) (unknown) (no date) (unknown) (unknown) [place] # (Auto) 400 (0-900) /uL (units unknown) (unknown) (unknown) (no date) (unknown) (unknown) [place] % (Auto) (3-14) % (units unknown) (unknown) (unknown) (no date) (unknown) (unknown) [place] % (Auto) 6.9 (3-14) % (units unknown) (unknown) (unknown) (no date) (unknown) (unknown) Morbid obesity (units unknown) (unknown) (unknown) (no date) (unknown) (unknown) Mother BRCA positive (units unknown) (unknown) (unknown) (no date) (unknown) (unknown) NEUROLOGICAL: Alert and oriented x4.Normal gait and speech. (units unknown) (unknown) (unknown) (no date) (unknown) (unknown) Nephrolithiasis (-2018) (units unknown) (unknown) (unknown) (no date) (unknown) (unknown) Neut # (Auto) (8753-0273) /uL (units unknown) (unknown) (unknown) (no date) (unknown) (unknown) Neut # (Auto) 3500 (3369-6682) /uL (units unknown) (unknown) (unknown) (no date) [...] unknown) (unknown) (unknown) (no date) (unknown) (unknown) [facility] recently for an EGD which she was found to have erosive (units unknown) (unknown) (unknown) (no date) (unknown) (unknown) [facility] (units unknown) (unknown) (unknown) (no date) [...] (unknown) (no date) (unknown) (unknown) Ur Specific [place] (1.000-1.035) (units unknown) (unknown) (unknown) (no date) (unknown) (unknown) Ur Specific [place] 1.025 (1.000-1.035) (units unknown) (unknown) (unknown) (no [...] (unknown) (no date) (unknown) (unknown) Urine Specific [place] 1.020 (units unknown) (unknown) (unknown) (no date) [...] unknown) (unknown) (unknown) (no date) (unknown) (unknown) , CT, CT ABDOMEN PELVIS WITHOUT CONTRAST, 06/11/2022, 19:33.? (units unknown) (unknown) (unknown) (no date) (unknown) (unknown) , MR, MR ABDOMEN MRCP, 06/12/2022, 10:50. (units [...] date) (unknown) (unknown) Christi Johnson , JORDAN, GAME ARTIST [Primary Care Provider] (units unknown) (unknown) (unknown) [...] care provider in 2-3 days or call [phone] (units unknown) (unknown) (unknown) (no date) (unknown) [...] (unknown) (unknown) (no date) (unknown) (unknown) : [id number] (units unknown) (unknown) (unknown) (no date) (unknown) [...] (unknown) (unknown) (no date) (unknown) (unknown) COMPARISON:? [facility], MR, MR ABDOMEN [facility], 06/12/2022, 10:50.? (units unknown) (unknown) (unknown) (no [...] (unknown) (no date) (unknown) (unknown) : 1995 Acct:[id number] (units unknown) (unknown) (unknown) (no date) (unknown) [...] unknown) (unknown) (unknown) (no date) (unknown) (unknown) [address] [address] (units unknown) (unknown) (unknown) (no date) (unknown) [...] mg once a day for 3 days--> [employer] [facility] (units unknown) (unknown) (unknown) (no date) [...] (no date) (unknown) (unknown) Lymph # (Auto) (2544-2914) /uL (units unknown) (unknown) (unknown) (no date) (unknown) (unknown) Lymph # (Auto) 2200 (8719-0086) /uL (units unknown) (unknown) (unknown) (no date) [...] unknown) (unknown) (unknown) (no date) (unknown) (unknown) [place] # (Auto) (0-900 ) /uL (units unknown) (unknown) (unknown) (no date) (unknown) (unknown) [place] # (Auto) 400 (0-900) /uL (units unknown) (unknown) (unknown) (no date) (unknown) (unknown) [place] % (Auto) (3-14) % (units unknown) (unknown) (unknown) (no date) (unknown) (unknown) [place] % (Auto) 6.9 (3-14) % (units unknown) (unknown) (unknown) (no date) (unknown) (unknown) Morbid obesity (units unknown) (unknown) (unknown) (no date) (unknown) (unknown) Mother BRCA positive (units unknown) (unknown) (unknown) (no date) (unknown) (unknown) NEUROLOGICAL: Alert and oriented x4.Normal gait and speech. (units unknown) (unknown) (unknown) (no date) (unknown) (unknown) Nephrolithiasis (-2018) (units unknown) (unknown) (unknown) (no date) (unknown) (unknown) Neut # (Auto) (8120-2441) /uL (units unknown) (unknown) (unknown) (no date) (unknown) (unknown) Neut # (Auto) 3500 (8234-8980) /uL (units unknown) (unknown) (unknown) (no date) [...] unknown) (unknown) (unknown) (no date) (unknown) (unknown) [facility] recently for an EGD which she was found to have erosive (units unknown) (unknown) (unknown) (no date) (unknown) (unknown) [facility] (units unknown) (unknown) (unknown) (no date) [...] (unknown) (no date) (unknown) (unknown) Ur Specific [place] (1.000-1.035) (units unknown) (unknown) (unknown) (no date) (unknown) (unknown) Ur Specific [place] 1.025 (1.000-1.035) (units unknown) (unknown) (unknown) (no [...] (unknown) (no date) (unknown) (unknown) Urine Specific [place] 1.020 (units unknown) (unknown) (unknown) (no date) [...] unknown) (unknown) (unknown) (no date) (unknown) (unknown) , CT, CT ABDOMEN PELVIS WITHOUT CONTRAST, 06/11/2022, 19:33.? (units unknown) (unknown) (unknown) (no date) (unknown) (unknown) , MR, MR ABDOMEN MRCP, 06/12/2022, 10:50. (units [...] date) (unknown) (unknown) Christi Johnson , DNP, GAME ARTIST [Primary Care Provider] (units unknown) (unknown) (unknown) [...] (unknown) (unknown) (no date) (unknown) (unknown) #: [id number] (units unknown) (unknown) (unknown) (no date) (unknown) (unknown) 11/21/22 (units unknown) (unknown) (unknown) (no date) (unknown) (unknown) 1. Mild superior subluxation of AC joint suggesting grade 2 AC separation. (units unknown) (unknown) (unknown) (no date) (unknown) (unknown) [address] [place] [address] (units unknown) (unknown) (unknown) (no date) (unknown) (unknown) 2. Intact glenohumeral joint. (units unknown) (unknown) (unknown) (no date) (unknown) (unknown) Accession Number: [id number] (units unknown) (unknown) (unknown) (no date) (unknown) (unknown) Accession Number: [id number] (units unknown) (unknown) (unknown) (no date) (unknown) (unknown) Age/Sex: 27 / F Date of Service: (units unknown) (unknown) (unknown) (no date) (unknown) (unknown) [place] [address] (units unknown) (unknown) (unknown) (no date) (unknown) [...] (unknown) (unknown) (no date) (unknown) (unknown) COMPARISON: [facility], CR, XR CHEST 1V, 06/28/2020, 15:14. (units unknown) (unknown) (unknown) (no date) (unknown) (unknown) COMPARISON: [facility], CR, XR SHOULDER RT MIN 2V, 05/05/2022, 17:39. (units unknown) (unknown) (unknown) (no date) (unknown) (unknown) : 1995 Acct:[id number] (units unknown) (unknown) (unknown) (no date) (unknown) (unknown) Dictated by: Mercy iGl M.D. on 11/21/2022 at 16:59 (units unknown) (unknown) (unknown) (no date) (unknown) (unknown) Dictated by: Zaida Aceves M.D. on 11/21/2022 at 16:54 (units unknown) (unknown) (unknown) (no date) (unknown) (unknown) FINDINGS: (units unknown) (unknown) (unknown) (no date) (unknown) (unknown) [facility], CR, XR CHEST 1V, 11/21/2022, 16:20. (units unknown) (unknown) (unknown) (no date) (unknown) (unknown) IMPRESSION: No acute pulmonary process. (units unknown) (unknown) (unknown) (no date) (unknown) (unknown) IMPRESSION: (units unknown) (unknown) (unknown) (no date) (unknown) (unknown) INDICATIONS: chest pain (units unknown) (unknown) (unknown) (no date) (unknown) (unknown) INDICATIONS: syncopa l episode/L shoulder pain/poss dislocation (units unknown) (unknown) (unknown) (no date) (unknown) (unknown) [facility] (units unknown) (unknown) (unknown) (no date) (unknown) (unknown) [place] (units unknown) (unknown) (unknown) (no date) (unknown) [...] (unknown) (unknown) (no date) (unknown) (unknown) #: [id number] (units unknown) (unknown) (unknown) (no date) (unknown) (unknown) 11/21/22 (units unknown) (unknown) (unknown) (no date) (unknown) (unknown) 1. No acute intracranial process. (units unknown) (unknown) (unknown) (no date) (unknown) (unknown) [address] [place] [address] (units unknown) (unknown) (unknown) (no date) (unknown) (unknown) 12:18. (units unknown) (unknown) (unknown) (no date) (unknown) (unknown) Accession Number: [id number] (units unknown) (unknown) (unknown) (no date) (unknown) (unknown) Accession Number: [id number] (units unknown) (unknown) (unknown) (no date) (unknown) (unknown) Accession Number: [id number] (units unknown) (unknown) (unknown) (no date) (unknown) (unknown) Age/Sex: 27 / F Date of Service: (units unknown) (unknown) (unknown) (no date) (unknown) (unknown) [place] [address] (units unknown) (unknown) (unknown) (no date) (unknown) [...] (unknown) (unknown) (no date) (unknown) (unknown) COMPARISON: [facility], CR, ELBOW 3+ VIEWS LEFT, 07/19/2008, 15:34. SNO (units unknown) (unknown) (unknown) (no date) (unknown) (unknown) COMPARISON: [facility], CT, CT CERVICAL SPINE WO CON, 04/22/2022, 15:07. (units unknown) (unknown) (unknown) (no date) (unknown) (unknown) COMPARISON: [facility], MR, MR BRAIN WITHOUT CONTRAST, 06/07/2022, (units unknown) (unknown) (unknown) (no date) (unknown) (unknown) CSF spaces: Basal cisterns are patent. No extra-axial fluid collections. (units unknown) (unknown) (unknown) (no date) (unknown) (unknown) CT Scan Report (units unknown) (unknown) (unknown) (no date) (unknown) (unknown) : 1995 Acct:[id number] (units unknown) (unknown) (unknown) (no date) (unknown) [...] unknown) (unknown) (unknown) (no date) (unknown) (unknown) [facility] (units unknown) (unknown) (unknown) (no date) (unknown) (unknown) [facility], CT, CT HEAD/BRAIN WO CON, 05/05/2022, [...] (unknown) (unknown) (no date) (unknown) (unknown) : [id number] (units unknown) (unknown) (unknown) (no date) (unknown) [...] (unknown) (no date) (unknown) (unknown) : 1995 Acct:[id number] (units unknown) (unknown) (unknown) (no date) (unknown) [...] unknown) (unknown) (unknown) (no date) (unknown) (unknown) [address] [address] (units unknown) (unknown) (unknown) (no date) (unknown) [...] (no date) (unknown) (unknown) Lymph # (Auto) (6338-1611) /uL (units unknown) (unknown) (unknown) (no date) (unknown) (unknown) Lymph # (Auto) 2200 (5216-3059) /uL (units unknown) (unknown) (unknown) (no date) [...] unknown) (unknown) (unknown) (no date) (unknown) (unknown) [place] # (Auto) (0-900 ) /uL (units unknown) (unknown) (unknown) (no date) (unknown) (unknown) [place] # (Auto) 500 (0-900) /uL (units unknown) (unknown) (unknown) (no date) (unknown) (unknown) [place] % (Auto) (3-14) % (units unknown) (unknown) (unknown) (no date) (unknown) (unknown) [place] % (Auto) 9.4 (3-14) % (units unknown) (unknown) (unknown) (no date) (unknown) (unknown) Morbid obesity (units unknown) (unknown) (unknown) (no date) (unknown) (unknown) Mother BRCA positive (units unknown) (unknown) (unknown) (no date) (unknown) (unknown) Nephrolithiasis (-2018) (units unknown) (unknown) (unknown) (no date) (unknown) (unknown) Neut # (Auto) (0197-4687) /uL (units unknown) (unknown) (unknown) (no date) (unknown) (unknown) Neut # (Auto) 2300 (0117-3115) /uL (units unknown) (unknown) (unknown) (no date) [...] date) (unknown) (unknown) Christi Johnson , DNP, GAME ARTIST [Primary Care Provider] (units unknown) (unknown) (unknown) [...] a primary care provider please contact the [facility] (units unknown) (unknown) (unknown) (no date) [...] (unknown) (unknown) (no date) (unknown) (unknown) : [id number] (units unknown) (unknown) (unknown) (no date) (unknown) [...] (unknown) (no date) (unknown) (unknown) : 1995 Acct:[id number] (units unknown) (unknown) (unknown) (no date) (unknown) [...] unknown) (unknown) (unknown) (no date) (unknown) (unknown) [address] [address] (units unknown) (unknown) (unknown) (no date) (unknown) [...] (no date) (unknown) (unknown) Lymph # (Auto) (5348-0140) /uL (units unknown) (unknown) (unknown) (no date) (unknown) (unknown) Lymph # (Auto) 2200 (4840-8731) /uL (units unknown) (unknown) (unknown) (no date) [...] unknown) (unknown) (unknown) (no date) (unknown) (unknown) [place] # (Auto) (0-900 ) /uL (units unknown) (unknown) (unknown) (no date) (unknown) (unknown) [place] # (Auto) 500 (0-900) /uL (units unknown) (unknown) (unknown) (no date) (unknown) (unknown) [place] % (Auto) (3-14) % (units unknown) (unknown) (unknown) (no date) (unknown) (unknown) [place] % (Auto) 9.4 (3-14) % (units unknown) [...] (no date) (unknown) (unknown) Neut # (Auto) (9489-2657) /uL (units unknown) (unknown) (unknown) (no date) (unknown) (unknown) Neut # (Auto) 2300 (0085-9111) /uL (units unknown) (unknown) (unknown) (no date) [...] (no date) (unknown) (unknown) Resource line at [phone]. They will ask some questions about your [...] date) (unknown) (unknown) Christi Johnson , DNP, GAME ARTIST [Primary Care Provider] (units unknown) (unknown) (unknown) [...] facility 2022-11-15 00:00 Smokes tobacco daily (finding) [facility] 2022-11-21 00:00 Ex-smoker (finding) [facility] ital Vital Signs date measurement value [...]
[2022-12-22] MEDS ORDERED: ONDANSETRON 4 MG/2 ML VIAL IVP STA (13:30)
[2022-12-22] MEDS ORDERED: HYDROmorphone 1 MG/ML CARPUJECT IVP STA ×2 (13:30→15:04)
[2022-12-22] MEDS ORDERED: SODIUM CHLORIDE 0.9% 1,000 ML IV STA (13:30)
--- NOTE | 2022-12-22 13:31 | ED Physician Documentation ---
PD HPI ABD PAIN - Stated complaint Stated Complaint: FEMALE - Chief complaint Chief Complaint: Abd Pain - History obtained from History obtained from: Patient - Additional information Additional information: She has a history of renal colic including some that needed intervention. For 2 days she has had right greater than left flank pain associated with hematuria. She has been nauseous. Does feel like prior episodes of kidney stones. No urinary symptoms and no fevers. PD PAST MEDICAL HISTORY - Past Medical History Neuro: Seizure disorder, Other KNOWLEDGE ARCHITECT: Ovarian cysts : Kidney stones Psych: Post traumatic stress disorder - Past Surgical History Past Surgical History: Yes General: Cholecystectomy, Appendectomy /KNOWLEDGE ARCHITECT: Hysterectomy, Oophrectomy - Present Medications Home Medications: Ambulatory Orders Medication Instructions Recorded Confirmed Diazepam [Valium] 10 mg PO QID 12/30/20 11/03/22 Sertraline HCl 100 mg PO DAILY 12/30/20 11/03/22 QUEtiapine [SEROquel] 25 mg PO DAILY 02/27/21 11/03/22 lamoTRIgine [LaMICtal] 200 mg PO HS 02/27/21 11/03/22 Omeprazole 40 mg PO DAILY #30 cap 05/21/22 11/03/22 Metoclopramide [Reglan] 10 mg PO [facility] 11/03/22 11/03/22 Oxycodone HCl 10 mg PO TID PRN 11/03/22 11/03/22 Sucralfate [Carafate] 1 tablet PO [facility] 11/03/22 11/03/22 Trazodone HCl 100 mg ORAL HS 11/03/22 11/03/22 Oxycodone HCl/Acetaminophen 1 - 2 each PO Q6H PRN #14 tablet 12/22/22 [Percocet 5-325 mg Tablet] Prochlorperazine Maleate 10 mg PO Q6H PRN #20 tab 12/22/22 [Compazine] - Allergies Allergies/Adverse Reactions: Allergies Allergy/AdvReac Type Severity Reaction Status Date / Time adhesive Allergy Rash Verified 12/12/22 16:20 Cephalosporins Allergy Hives Verified 12/12/22 16:20 Iodinated Contrast Media Allergy Anaphylaxis Verified 12/12/22 16:20 latex Allergy Rash Verified 12/12/22 16:20 lidocaine Allergy Unknown Verified 12/12/22 16:20 metoclopramide [From Reglan] Allergy Anaphylaxis Verified 12/12/22 16:20 Penicillins Allergy Hives Verified 12/12/22 16:20 prochlorperazine Allergy Anaphylaxis Verified 12/12/22 16:20 [From Compazine] all antibiotic except Allergy Anaphylaxis Uncoded 12/12/22 16:20 levaquin - Social History Does the pt smoke?: No Smoking Status: Never smoker Does the pt drink ETOH?: No Does the pt have substance abuse?: No - Immunizations Immunizations are current?: Yes PD ED PE NORMAL - Vitals Vital signs reviewed: Yes - General General: Alert and oriented X 3, No acute distress - Abdomen Abdomen: Soft, Non tender - Back Back: Other (Moderate right and mild left CVA tenderness) - Derm Derm: Normal color, Warm and dry Results - Vitals Vitals: Vital Signs - 24 hr 12/22/22 12/22/22 12:49 15:00 Temperature 36.2 C L Heart Rate 87 72 Respiratory 18 15 Rate Blood Pressure 117/55 L 96/53 L O2 Saturation 98 100 Oxygen O2 Source Room air - Labs Labs: Laboratory Tests 12/22/22 12/22/22 12/22/22 12:56 13:52 13:52 WBC 5.7 RBC 4.33 Hgb 13.4 Hct 39.6 MCV 91.5 MCH 30.9 MCHC 33.8 RDW 12.3 Plt Count 190 MPV 10.5 Neut # (Auto) 3.4 Lymph # (Auto) 1.7 [place] # (Auto) 0.5 Eos # (Auto) 0.1 Baso # (Auto) 0.0 Absolute Nucleated RBC 0.00 Nucleated RBC % 0.0 Sodium 137 Potassium 4.3 Chloride 105 Carbon Dioxide 27 Anion Gap 5.0 L BUN 14 Creatinine 0.9 Estimated GFR (MDRD) 74 L Glucose 95 Calcium 9.0 Total Bilirubin 0.7 AST 13 ALT 15 Alkaline Phosphatase 36 L Total Protein 7.0 Albumin 4.1 Globulin 2.9 Albumin/Globulin Ratio 1.4 Urine Color RED/BLOODY Urine Clarity CLOUDY Urine pH 7.0 Ur Specific [place] 1.020 Urine Protein 100 H Urine Glucose (UA) NEGATIVE Urine Ketones NEGATIVE Urine Occult Blood LARGE H Urine Nitrite NEGATIVE Urine Bilirubin NEGATIVE Urine Urobilinogen 0.2 (NORMAL) Ur Leukocyte Esterase NEGATIVE Urine RBC 0-5 Urine WBC 0-3 Ur Squamous Epith Cells MOD Squamous H Urine Bacteria Moderate H Ur Microscopic Review INDICATED Urine Culture Comments NOT INDICATED PD Medical Decision Making - ED course ED course: 27-year-old woman with parents renal colic. Ultrasound done without clear evidence of kidney stone or hydronephrosis. She has had extensive CT scanning in the past, and would like to avoid inpatient is agreeable. Discussed this does not mean she does not have a small stone but without hydronephrosis, very unlikely to need urologic intervention. She was treated initially with Dilaudid and Zofran with modest relief of her pain. This was repeated with another milligram of Dilaudid again with modest relief. Toradol and Compazine IV prior to discharge. Departure - Departure Disposition: Home, Self Care Clinical Impression: Renal colic Condition: Good Record reviewed to determine appropriate education?: Yes Instructions: ED Stone Renal W Colic Prescriptions: Prochlorperazine Maleate [Compazine] 10 mg PO Q6H PRN #20 tab PRN Reason: Nausea / Vomiting Oxycodone HCl/Acetaminophen [Percocet 5-325 mg Tablet] 1 - 2 each PO Q6H PRN #14 tablet PRN Reason: pain Comments: As discussed, we do not see a clear kidney stone but given the negative ultrasound and typical symptoms I think it is probably a small kidney stone but the ultrasound being negative makes it very unlikely that she would need to have specific intervention i.e. a removal of the kidney stone. [facility] [place] Call your doctor to arrange a follow-up appointment, make the next available appointment. In the interim, return anytime if worse or if new symptoms develop. I am prescribing a short course of narcotic pain medication for you. These are potentially dangerous and addictive medications that should be used carefully. These medications may constipate you. Take an [id number] stool softener (docusate) twice daily with plenty of water while taking these medications. If you go 24 hours without a bowel movement, take [id number] miralax, per package instructions. Do not drink or drive while taking these medications. If you received narcotic or sedating medications while in the emergency department, do not drive for 24 hours. Store this medication in a safe, secure place and out of reach of children. It is a violation of federal law to give or sell this medication to another person or to use in a manner other than prescribed. The ED will not refill narcotic prescriptions, including prescriptions lost or stolen. To dispose of unwanted medications: 1. [facility] at [address] in [place] has a medication drop box. They accept prescription medications (in pill form) Saturday through Saturday 9:00 a.m. to 5:00 p.m. 2. The [facility] accepts prescription medications (in pill form only) for disposal year round. Call for more information. 3. Contact the [facility] for the next [facility] sponsored prescription drug collection event. , [phone], or [phone]; Note that many narcotic pain relievers also contain Tylenol/acetaminophen. Please ensure that your total dose of acetaminophen from all sources does not exceed 3 g (3000 mg) per day.
[2022-12-22 13:57] LABS: BASOPHILS % (AUTO) 0.4 %; EOSINOPHILS # (AUTO) 0.1 10^3/uL (0.0-0.7); EOSINOPHILS % (AUTO) 2.3 %; HCT - HEMATOCRIT 39.6 % (37.0-47.0); HGB - HEMOGLOBIN 13.4 g/dL (12.0-16.0); LYMPHOCYTES # (AUTO) 1.7 10^3/uL (1.5-3.5); LYMPHOCYTES % (AUTO) 29.3 %; MEAN CORPUSCULAR HEMOGLOBIN 30.9 pg (27.0-31.0); MEAN CORPUSCULAR HGB CONC 33.8 g/dL (32.0-36.0); MEAN CORPUSCULAR VOLUME 91.5 fL (81.0-99.0); MEAN PLATELET VOLUME 10.5 fL (7.9-10.8); MONOCYTES # (AUTO) 0.5 10^3/uL (0.0-1.0); MONOCYTES % (AUTO) 8.4 %; NEUTROPHILS # (AUTO) 3.4 10^3/uL (1.5-6.6); NEUTROPHILS % (AUTO) 59.4 %; PLT - PLATELET COUNT 190 10^3/uL (130-450); RED BLOOD COUNT 4.33 10^6/uL (4.20-5.40); RED CELL DISTRIBUTION WIDTH 12.3 % (12.0-15.0); WHITE BLOOD COUNT 5.7 x10^3/uL (4.8-10.8)
[2022-12-22 14:10] LABS: ALBUMIN 4.1 g/dL (3.2-5.5); ALBUMIN/GLOBULIN RATIO 1.4 (1.0-2.2); BILIRUBIN,TOTAL 0.7 mg/dL (0.2-1.0); CREATININE 0.9 mg/dL (0.4-1.0); POTASSIUM 4.3 mmol/L (3.5-5.0)
[2022-12-22] MEDS ORDERED: PROCHLORPERAZINE 10 MG/2 ML VIAL IVP STA (15:57)
[2022-12-22] MEDS ORDERED: KETOROLAC 15 MG/ML VIAL IVP STA (15:57)
--- NOTE | 2022-12-22 16:13 | Ultrasound Report ---
PROCEDURE: Retroperitoneal INDICATIONS: BEATRIZ PAIN, HEMATURIA TECHNIQUE: Real-time scanning was performed of the retroperitoneal organs, with image documentation. COMPARISON: CT of the abdomen 06/08/2022 FINDINGS: Kidneys: Kidneys are normal in size. Right kidney measures 10.4 cm long; left kidney measures 11.1 cm long. Right renal cortical thickness is 1.1 cm; left renal cortical thickness is 1.4 cm. No solid masses, hydronephrosis, or nephrolithiasis. Bladder: Pre-void bladder volume is 155 mL. Post-void residual is 15 mL. Pre-void images demonstra te no intraluminal masses or stones. On pre-void images, bilateral ureteral jets are noted with colo r Doppler interrogation. (Of note, ureteral jets may not be detectable in up to 25% of cases due to insufficient differences in specific gravity between ureteral and bladder urine). Miscellaneous: No free abdominal fluid. IMPRESSION: 1. No evidence of hydronephrosis or indirect evidence of ureteral obstruction. 2. No evidence of intrarenal calculi. 3. Preliminary results given by the 911 emergency services dispatcher to the ordering provider immediately following the st udy. Reviewed by: Fannie Ramos MD on 12/22/2022 3:12 PM AKDT Approved by: Fannie Ramos MD on 12/22/2022 3:12 PM AKDT Station ID: [id number]
[2022-12-22 16:35] VITALS: BP 113/58
== END 2022-12-22 16:37 | disposition home or self-care (01) ==
LOC: ED 12:20
DX: N23 Unspecified renal colic (principal); Z87.442 Personal history of urinary calculi; Z79.899 Other long term (current) drug therapy
CPT/HCPCS: 36415; 76770; 80053; 81001; 85025; 96374; 96375; 96376; 99283; 99285; J1170; 81003; 87086

== ENCOUNTER 2022-12-31 20:29 | Emergency (ER) | payer MEDICAID ==
[2022-12-31] MEDS ORDERED: ONDANSETRON ODT 4 MG TABLET TL STA (21:11)
[2022-12-31] MEDS ORDERED: KETOROLAC 30 MG/ML VIAL IM STA (21:12)
[2022-12-31] MEDS ORDERED: oxyCODONE 5 MG TABLET PO STA (21:12)
[2022-12-31] MEDS ORDERED: ACETAMINOPHEN 325 MG TABLET PO STA (21:12)
[2022-12-31 21:42] LABS: HCG UR QUAL NEGATIVE
[2022-12-31 21:48] LABS: GLUCOSE, URINE (UA) NEGATIVE (NEGATIVE); KETONES,URINE (UA) NEGATIVE (NEGATIVE); LEUKOCYTE ESTERASE, URINE NEGATIVE (NEGATIVE); NITRITE,URINE POSITIVE (NEGATIVE); OCCULT BLOOD,URINE LARGE (NEGATIVE); PROTEIN,URINE 100 mg/dL (NEGATIVE); UROBILINOGEN,URINE 1 (NORMAL) E.U./dL (NORMAL)
[2022-12-31 21:52] LABS: BILIRUBIN,URINE NEGATIVE (NEGATIVE); CLARITY,URINE CLOUDY (CLEAR); ICTOTEST,URINE NEGATIVE
[2022-12-31 21:53] LABS: BACTERIA,URINE Few /HPF (None Seen); RBC,URINE TNTC /HPF (0-5); SQUAMOUS EPITHELIAL CELL,UR FEW Squamous (<= Few)
--- NOTE | 2022-12-31 22:57 | ED Physician Documentation ---
History of Present Illness - Stated complaint Stated Complaint: FEMALE - Chief complaint Chief Complaint: Abd Pain - History obtained from History obtained from: Patient - Additonal information Additional information: 27-year-old woman with history of renal stones, recently seen a week ago for kidney stones with ultrasound negative for hydronephrosis presents with persistent pain now in the bilateral flank and reported fever at home of 102 With dysuria. Patient states she is been taking cranberry and Azo at home and has been unable to follow-up with her primary care provider as of yet. Endorses nausea but no vomiting. Denies diarrhea. PD PAST MEDICAL HISTORY - Past Medical History Neuro: Seizure disorder, Other PATTERNMAKER METAL: Ovarian cysts : Kidney stones Psych: Post traumatic stress disorder - Past Surgical History Past Surgical History: Yes General: Cholecystectomy, Appendectomy /PATTERNMAKER METAL: Hysterectomy, Oophrectomy - Present Medications Home Medications: Ambulatory Orders Medication Instructions Recorded Confirmed Diazepam [Valium] 10 mg PO QID 12/30/20 11/03/22 Sertraline HCl 100 mg PO DAILY 12/30/20 11/03/22 QUEtiapine [SEROquel] 25 mg PO DAILY 02/27/21 11/03/22 lamoTRIgine [LaMICtal] 200 mg PO HS 02/27/21 11/03/22 Omeprazole 40 mg PO DAILY #30 cap 05/21/22 11/03/22 Metoclopramide [Reglan] 10 mg PO [facility] 11/03/22 11/03/22 Oxycodone HCl 10 mg PO TID PRN 11/03/22 11/03/22 Sucralfate [Carafate] 1 tablet PO [facility] 11/03/22 11/03/22 Trazodone HCl 100 mg ORAL HS 11/03/22 11/03/22 Oxycodone HCl/Acetaminophen 1 - 2 each PO Q6H PRN #14 tablet 12/22/22 [Percocet 5-325 mg Tablet] Prochlorperazine Maleate 10 mg PO Q6H PRN #20 tab 12/22/22 [Compazine] Ciprofloxacin HCl 1 tablet PO BID 10 Days #20 tablet 12/31/22 Ondansetron Odt [Zofran Odt] 4 mg TL Q6H PRN #10 tablet 12/31/22 Oxycodone HCl/Acetaminophen 1 each PO Q4H PRN #10 tablet 12/31/22 [Percocet 10-325 mg Tablet] - Allergies Allergies/Adverse Reactions: Allergies Allergy/AdvReac Type Severity Reaction Status Date / Time adhesive Allergy Rash Verified 12/31/22 20:35 Cephalosporins Allergy Hives Verified 12/31/22 20:35 Iodinated Contrast Media Allergy Anaphylaxis Verified 12/31/22 20:35 latex Allergy Rash Verified 12/31/22 20:35 lidocaine Allergy Unknown Verified 12/31/22 20:35 metoclopramide [From Reglan] Allergy Anaphylaxis Verified 12/31/22 20:35 Penicillins Allergy Hives Verified 12/31/22 20:35 prochlorperazine Allergy Anaphylaxis Verified 12/31/22 20:35 [From Compazine] all antibiotic except Allergy Anaphylaxis Uncoded 12/31/22 20:35 levaquin - Social History Does the pt smoke?: No Smoking Status: Never smoker Does the pt drink ETOH?: No Does the pt have substance abuse?: No - Immunizations Immunizations are current?: Yes PD ED PE NORMAL - Vitals Vital signs reviewed: Yes - General General: Alert and oriented X 3, No acute distress, Well developed/nourished - HEENT HEENT: Atraumatic, PERRL, EOMI - Neck Neck: Supple, no meningeal sign - Cardiac Cardiac: RRR - Respiratory Respiratory: No respiratory distress, Clear bilaterally - Abdomen Abdomen: Non tender, Non distended - Back Back: Other (BL CVA ttp) - Derm Derm: Normal color, Warm and dry - Neuro Neuro: Alert and oriented X 3 - Psych Psych: Normal mood, Normal affect Results - Vitals Vitals: Vital Signs - 24 hr 12/31/22 12/31/22 12/31/22 20:35 21:32 23:11 Temperature 37.2 C Heart Rate 75 84 Respiratory 16 16 Rate Blood Pressure 119/62 129/51 L O2 Saturation 98 98 100 Oxygen O2 Source Room air - Labs Labs: Laboratory Tests 12/31/22 12/31/22 21:08 21:08 Urine Color DARK YELLOW Urine Clarity CLOUDY Urine pH 7.0 Ur Specific Rison 1.020 Urine Protein 100 H Urine Glucose (UA) NEGATIVE Urine Ketones NEGATIVE Urine Occult Blood LARGE H Urine Nitrite POSITIVE H Urine Bilirubin NEGATIVE Urine Urobilinogen 1 (NORMAL) Ur Leukocyte Esterase NEGATIVE Urine RBC TNTC H Urine WBC 4-5 Ur Squamous Epith Cells FEW Squamous Urine Bacteria Few Ur Microscopic Review INDICATED Urine Culture Comments INDICATED Urine HCG, Qual NEGATIVE PD Medical Decision Making - ED course ED course: 27-year-old woman with history of renal stones presents with dysuria, fever, urinalysis with blood in the urine and nitrite positive in the setting of Azo pills. There is a report that she had a fever at home but she is afebrile here. u/s pending. oral zofran, oxycodone ordered. IM toradol offered but declined. Patient vomited up the zofran. IM zofran ordered. no hydro on ultrasound. outpatient f/u with urology recommended. referral provided. return precautions given. antibiotics sent to pharmacy. Departure - Departure Disposition: Home, Self Care Clinical Impression: UTI (urinary tract infection), Renal stones Condition: Stable Instructions: UTI, Kidney Stones Follow-Up: Amina Beyer MD [Physician No Access] - Prescriptions: Ciprofloxacin HCl 1 tablet PO BID 10 Days #20 tablet Oxycodone HCl/Acetaminophen [Percocet 10-325 mg Tablet] 1 each PO Q4H PRN #10 tablet PRN Reason: Pain Ondansetron Odt [Zofran Odt] 4 mg TL Q6H PRN #10 tablet PRN Reason: Nausea / Vomiting Comments: You were seen in the emergency department for blood in the urine and possible urinary tract infection. Antibiotics and pain meds were sent electronically to [facility] pharmacy. Please follow-up with urology (referral provided). Return to the emergency department for any new or worsening symptoms or other concerns.
[2022-12-31 23:13] VITALS: BP 129/51
[2022-12-31] MEDS ORDERED: ONDANSETRON 4 MG/2 ML VIAL IM STA (23:16)
[2022-12-31] MEDS ORDERED: CIPROFLOXACIN 250 MG TABLET PO STA (23:18)
[2022-12-31] MEDS ORDERED: diphenhydrAMINE 25 MG CAPSULE PO STA (23:50)
--- NOTE | 2023-01-01 00:27 | Ultrasound Report ---
PROCEDURE: Retroperitoneal INDICATIONS: renal and bladder ultrasound - flank pain, history of stone TECHNIQUE: Real-time scanning was performed of the retroperitoneal organs, with image documentation. COMPARISON: Retroperitoneal ultrasound 12/22/2022. FINDINGS: Kidneys: Right kidney measures 10.1 cm long; left kidney measures 10.9 cm long. Right renal cortica l thickness is 0.8 cm; left renal cortical thickness is 0.8 cm. No discrete solid masses, hydronephr osis, or shadowing renal stones. Bladder: Pre-void bladder volume is 49 mL. Patient unable to void. Pre-void images demonstrate no in traluminal masses or stones. On pre-void images, neither ureteral jets are noted with color Doppler interrogation. (Of note, ureteral jets may not be detectable in up to 25% of cases due to insufficie nt differences in specific gravity between ureteral and bladder urine). Miscellaneous: No free abdominal fluid. An anechoic simple cyst is demonstrated in the left ovary, measuring up to 3.2 cm. IMPRESSION: 1. No evidence of hydronephrosis. 2. No discrete shadowing renal stone identified. Reviewed by: Lester Brewer MD on 01/01/2023 12:26 AM PDT Approved by: Lester Brewer MD on 01/01/2023 12:26 AM PDT Station ID: [id number]
--- NOTE | 2023-01-03 12:43 | ED Physician Documentation ---
ED Addendum - Addendum Addendum: 01/03/23 12:43 Culture reviewed, mixed growth, given history of renal stones and her symptoms, reasonable to continue treatment with Cipro as prescribed by Dr. Edwards.
== END 2023-01-01 00:05 | disposition home or self-care (01) ==
LOC: ED 20:29
DX: N39.0 Urinary tract infection, site not specified (principal); N20.0 Calculus of kidney; Z87.442 Personal history of urinary calculi
CPT/HCPCS: 76770; 81001; 81025; 87086; 96372; 99283; 99284; A9270; Q0162; 81003

== ENCOUNTER 2023-01-16 17:33 | Emergency (ER) | payer MEDICAID ==
[2023-01-16 17:45] VITALS: BP 135/52
--- OUTSIDE RECORDS SUMMARY | 2023-01-16 18:17 | EXTERNAL MEDICAL SUMMARY RPT | Continuity of Care Document ---
Author Name Unknown Address [address] [place] [address] Phone Organization [facility] Address [address] [place] [address] Phone Care Team Providers Care Sales Project Administrator Name Role Phone Estevan Castorena Unavailable Unavailable Allergies and Intolerances date description facility type (no date) Mild [facility] (unknown) (no date) Iodinated Contrast Media [facility] (unknown) (no date) Penicillins [facility] (unknown) (no date) adhesive [facility] (unknown) (no date) amoxicillin [facility] (unknown) (no date) cephalexin [facility] (unknown) (no date) ciprofloxacin [facility] (unknown) (no date) clindamycin [facility] (unknown) (no date) doxycycline [facility] (unknown) (no date) hydrocodone [facility] (unknown) (no date) iodine [facility] (unknown) (no date) latex [facility] (unknown) (no date) lidocaine [facility] (unknown) (no date) metoclopramide [facility] (unknown) (no date) shellfish derived [facility] (unknow n) (no date) sulfamethoxazole [facility] (unknown ) (no date) trimethoprim [facility] (unknown) Medications date description facility 2022-11-16 00:00 Levofloxacin [facility] Problems date description facility 2022-11-16 00:00 Urinary tract infection [facility] 2022-11-21 00:00 Vomiting [facility] 2022-11-21 00:00 Abrasion [facility] 2022-11-21 00:00 Shoulder separation [facility] Procedures date description facility 2022-11-15 00:00 Computed tomography of abdomen and pelvis without contrast [facility] 2022-11-21 00:00 XR elbow left, 3+ views [facility] 2022-11-21 00:00 XR shoulder left, 2+ views [facility] 2022-11-21 00:00 Computed tomography of head or brain without contrast [facility] 2022-11-21 00:00 X-ray of chest, single view [facility] 2022-11-21 00:00 Computed tomography of cervical spine without contrast [facility] Results/Labs test date author facility value unit interpretation Result panel 1 (unknown) (no date) (unknown) [facility] (no value) (units unknown) (unknown) Result panel 2 (unknown) (no date) (unknown) [facility] (no value) (units unknown) (unknown) Result panel 3 (unknown) (no date) (unknown) [facility] (no value) (units unknown) (unknown) Result panel 4 (unknown) (no date) (unknown) [facility] (no value) (units unknown) (unknown) Result panel 5 (unknown) (no date) (unknown) [facility] (no value) (units unknown) (unknown) Result panel 6 (unknown) (no date) (unknown) [facility] (no value) (units unknown) (unknown) Result panel 7 (unknown) (no date) (unknown) [facility] (no value) (units unknown) (unknown) Result panel 8 (unknown) (no date) (unknown) [facility] (no value) (units unknown) (unknown) Result panel 9 (unknown) (no date) (unknown) [facility] (no value) (units unknown) (unknown) Result panel 10 (unknown) (no date) (unknown) [facility] (no value) (units unknown) (unknown) Result panel 11 (unknown) (no date) (unknown) [facility] (no value) (units unknown) (unknown) Result panel 12 (unknown) (no date) (unknown) [facility] (no value) (units unknown) (unknown) Result panel 13 (unknown) (no date) (unknown) [facility] (no value) (units unknown) (unknown) Result panel 14 (unknown) (no date) (unknown) [facility] (no value) (units unknown) (unknown) Result panel 15 (unknown) (no date) (unknown) [facility] (no value) (units unknown) (unknown) Result panel 16 (unknown) (no date) (unknown) [facility] (no value) (units unknown) (unknown) Result panel 17 (unknown) (no date) (unknown) [facility] (no value) (units unknown) (unknown) Result panel 18 (unknown) (no date) (unknown) [facility] (no value) (units unknown) (unknown) Result panel 19 (unknown) (no date) (unknown) [facility] (no value) (units unknown) (unknown) Result panel 20 (unknown) (no date) (unknown) [facility] (no value) (units unknown) (unknown) Result panel 21 (unknown) (no date) (unknown) [facility] (no value) (units unknown) (unknown) Result panel 22 (unknown) (no date) (unknown) [facility] (no value) (units unknown) (unknown) Result panel 23 (unknown) (no date) (unknown) [facility] (no value) (units unknown) (unknown) Result panel 24 (unknown) (no date) (unknown) [facility] (no value) (units unknown) (unknown) Result panel 25 (unknown) (no date) (unknown) [facility] (no value) (units unknown) (unknown) Result panel 26 (unknown) (no date) (unknown) [facility] (no value) (units unknown) (unknown) Result panel 27 (unknown) (no date) (unknown) [facility] (no value) (units unknown) (unknown) Result panel 28 (unknown) (no date) (unknown) [facility] (no value) (units unknown) (unknown) Result panel 29 (unknown) (no date) (unknown) [facility] (no value) (units unknown) (unknown) Result panel 30 (unknown) (no date) (unknown) [facility] (no value) (units unknown) (unknown) Result panel 31 (unknown) (no date) (unknown) [facility] (no value) (units unknown) (unknown) Result panel 32 (unknown) (no date) (unknown) [facility] (no value) (units unknown) (unknown) Result panel 33 (unknown) (no date) (unknown) [facility] (no value) (units unknown) (unknown) Result panel 34 (unknown) (no date) (unknown) [facility] (no value) (units unknown) (unknown) Result panel 35 (unknown) (no date) (unknown) [facility] (no value) (units unknown) (unknown) Result panel 36 (unknown) (no date) (unknown) [facility] (no value) (units unknown) (unknown) Result panel 37 (unknown) (no date) (unknown) [facility] (no value) (units unknown) (unknown) Result panel 38 (unknown) (no date) (unknown) [facility] (no value) (units unknown) (unknown) Result panel 39 (unknown) (no date) (unknown) [facility] (no value) (units unknown) (unknown) Result panel 40 (unknown) (no date) (unknown) [facility] (no value) (units unknown) (unknown) Result panel 41 (unknown) (no date) (unknown) [facility] (no value) (units unknown) (unknown) Result panel 42 (unknown) (no date) (unknown) [facility] (no value) (units unknown) (unknown) Result panel 43 (unknown) (no date) (unknown) [facility] (no value) (units unknown) (unknown) Result panel 44 (unknown) (no date) (unknown) [facility] (no value) (units unknown) (unknown) Result panel 45 (unknown) (no date) (unknown) [facility] (no value) (units unknown) (unknown) Result panel 46 (unknown) (no date) (unknown) [facility] (no value) (units unknown) (unknown) Result panel 47 (unknown) (no date) (unknown) [facility] (no value) (units unknown) (unknown) Result panel 48 (unknown) (no date) (unknown) [facility] (no value) (units unknown) (unknown) Result panel 49 (unknown) (no date) (unknown) [facility] (no value) (units unknown) (unknown) Result panel 50 (unknown) (no date) (unknown) [facility] (no value) (units unknown) (unknown) Result panel 51 (unknown) (no date) (unknown) [facility] (no value) (units unknown) (unknown) Result panel 52 (unknown) (no date) (unknown) [facility] (no value) (units unknown) (unknown) Result panel 53 (unknown) (no date) (unknown) [facility] (no value) (units unknown) (unknown) Result panel 54 (unknown) (no date) (unknown) [facility] (no value) (units unknown) (unknown) Result panel 55 (unknown) (no date) (unknown) [facility] (no value) (units unknown) (unknown) Result panel 56 (unknown) (no date) (unknown) [facility] (no value) (units unknown) (unknown) Result panel 57 (unknown) (no date) (unknown) [facility] (no value) (units unknown) (unknown) Result panel 58 (unknown) (no date) (unknown) [facility] (no value) (units unknown) (unknown) Result panel 59 (unknown) (no date) (unknown) [facility] (no value) (units unknown) (unknown) Result panel 60 (unknown) (no date) (unknown) [facility] (no value) (units unknown) (unknown) Result panel 61 (unknown) (no date) (unknown) [facility] (no value) (units unknown) (unknown) Result panel 62 (unknown) (no date) (unknown) [facility] (no value) (units unknown) (unknown) Result panel 63 (unknown) (no date) (unknown) [facility] (no value) (units unknown) (unknown) Result panel 64 (unknown) (no date) (unknown) [facility] (no value) (units unknown) (unknown) Result panel 65 (unknown) (no date) (unknown) [facility] (no value) (units unknown) (unknown) Result panel 66 (unknown) (no date) (unknown) [facility] (no value) (units unknown) (unknown) Result panel 67 (unknown) (no date) (unknown) [facility] (no value) (units unknown) (unknown) Result panel 68 (unknown) (no date) (unknown) [facility] (no value) (units unknown) (unknown) Result panel 69 (unknown) (no date) (unknown) [facility] (no value) (units unknown) (unknown) Result panel 70 (unknown) (no date) (unknown) [facility] (no value) (units unknown) (unknown) Result panel 71 (unknown) (no date) (unknown) [facility] (no value) (units unknown) (unknown) Result panel 72 (unknown) (no date) (unknown) [facility] (no value) (units unknown) (unknown) Result panel 73 (unknown) (no date) (unknown) [facility] (no value) (units unknown) (unknown) Result panel 74 (unknown) (no date) (unknown) [facility] (no value) (units unknown) (unknown) Result panel 75 (unknown) (no date) (unknown) [facility] (no value) (units unknown) (unknown) Result panel 76 (unknown) (no date) (unknown) [facility] (no value) (units unknown) (unknown) Result panel 77 (unknown) (no date) (unknown) [facility] (no value) (units unknown) (unknown) Result panel 78 (unknown) (no date) (unknown) [facility] (no value) (units unknown) (unknown) Result panel 79 (unknown) (no date) (unknown) [facility] (no value) (units unknown) (unknown) Result panel 80 (unknown) (no date) (unknown) [facility] (no value) (units unknown) (unknown) Result panel 81 (unknown) (no date) (unknown) [facility] (no value) (units unknown) (unknown) Result panel 82 (unknown) (no date) (unknown) [facility] (no value) (units unknown) (unknown) Result panel 83 (unknown) (no date) (unknown) [facility] (no value) (units unknown) (unknown) Result panel 84 (unknown) (no date) (unknown) [facility] (no value) (units unknown) (unknown) Result panel 85 (unknown) (no date) (unknown) [facility] (no value) (units unknown) (unknown) Result panel 86 (unknown) (no date) (unknown) [facility] (no value) (units unknown) (unknown) Result panel 87 (unknown) (no date) (unknown) [facility] (no value) (units unknown) (unknown) Result panel 88 (unknown) (no date) (unknown) [facility] (no value) (units unknown) (unknown) Result panel 89 (unknown) (no date) (unknown) [facility] (no value) (units unknown) (unknown) Result panel 90 (unknown) (no date) (unknown) [facility] (no value) (units unknown) (unknown) Result panel 91 (unknown) (no date) (unknown) [facility] (no value) (units unknown) (unknown) Result panel 92 (unknown) (no date) (unknown) [facility] (no value) (units unknown) (unknown) Result panel 93 (unknown) (no date) (unknown) [facility] (no value) (units unknown) (unknown) Result panel 94 (unknown) (no date) (unknown) [facility] (no value) (units unknown) (unknown) Result panel 95 (unknown) (no date) (unknown) [facility] (no value) (units unknown) (unknown) Result panel 96 (unknown) (no date) (unknown) [facility] (no value) (units unknown) (unknown) Result panel 97 (unknown) (no date) (unknown) [facility] (no value) (units unknown) (unknown) Result panel 98 (unknown) (no date) (unknown) [facility] (no value) (units unknown) (unknown) Result panel 99 (unknown) (no date) (unknown) [facility] (no value) (units unknown) (unknown) Result panel 100 (unknown) (no date) (unknown) [facility] (no value) (units unknown) (unknown) Result panel 101 (unknown) (no date) (unknown) [facility] (no value) (units unknown) (unknown) Result panel 102 (unknown) (no date) (unknown) [facility] (no value) (units unknown) (unknown) Result panel 103 (unknown) (no date) (unknown) [facility] (no value) (units unknown) (unknown) Result panel 104 (unknown) (no date) (unknown) [facility] (no value) (units unknown) (unknown) Result panel 105 (unknown) (no date) (unknown) [facility] (no value) (units unknown) (unknown) Result panel 106 (unknown) (no date) (unknown) [facility] (no value) (units unknown) (unknown) Result panel 107 (unknown) (no date) (unknown) [facility] (no value) (units unknown) (unknown) Result panel 108 (unknown) (no date) (unknown) [facility] (no value) (units unknown) (unknown) Result panel 109 (unknown) (no date) (unknown) [facility] (no value) (units unknown) (unknown) Result panel 110 (unknown) (no date) (unknown) [facility] (no value) (units unknown) (unknown) Result panel 111 (unknown) (no date) (unknown) [facility] (no value) (units unknown) (unknown) Result panel 112 (unknown) (no date) (unknown) [facility] (no value) (units unknown) (unknown) Result panel 113 (unknown) (no date) (unknown) [facility] (no value) (units unknown) (unknown) Result panel 114 (unknown) (no date) (unknown) [facility] (no value) (units unknown) (unknown) Result panel 115 (unknown) (no date) (unknown) [facility] (no value) (units unknown) (unknown) Result panel 116 (unknown) (no date) (unknown) [facility] (no value) (units unknown) (unknown) Result panel 117 (unknown) (no date) (unknown) [facility] (no value) (units unknown) (unknown) Result panel 118 (unknown) (no date) (unknown) [facility] (no value) (units unknown) (unknown) Result panel 119 (unknown) (no date) (unknown) [facility] (no value) (units unknown) (unknown) Result panel 120 (unknown) (no date) (unknown) [facility] (no value) (units unknown) (unknown) Result panel 121 (unknown) (no date) (unknown) [facility] (no value) (units unknown) (unknown) Result panel 122 (unknown) (no date) (unknown) [facility] (no value) (units unknown) (unknown) Result panel 123 (unknown) (no date) (unknown) [facility] (no value) (units unknown) (unknown) Result panel 124 (unknown) (no date) (unknown) [facility] (no value) (units unknown) (unknown) Result panel 125 (unknown) (no date) (unknown) [facility] (no value) (units unknown) (unknown) Result panel 126 (unknown) (no date) (unknown) [facility] (no value) (units unknown) (unknown) Result panel 127 (unknown) (no date) (unknown) [facility] (no value) (units unknown) (unknown) Result panel 128 (unknown) (no date) (unknown) [facility] (no value) (units unknown) (unknown) Result panel 129 (unknown) (no date) (unknown) [facility] (no value) (units unknown) (unknown) Result panel 130 (unknown) (no date) (unknown) [facility] (no value) (units unknown) (unknown) Result panel 131 (unknown) (no date) (unknown) [facility] (no value) (units unknown) (unknown) Result panel 132 (unknown) (no date) (unknown) [facility] (no value) (units unknown) (unknown) Result panel 133 (unknown) (no date) (unknown) [facility] (no value) (units unknown) (unknown) Result panel 134 (unknown) (no date) (unknown) [facility] (no value) (units unknown) (unknown) Result panel 135 (unknown) (no date) (unknown) [facility] (no value) (units unknown) (unknown) Result panel 136 (unknown) (no date) (unknown) [facility] (no value) (units unknown) (unknown) Result panel 137 (unknown) (no date) (unknown) [facility] (no value) (units unknown) (unknown) Result panel 138 (unknown) (no date) (unknown) [facility] (no value) (units unknown) (unknown) Result panel 139 (unknown) (no date) (unknown) [facility] (no value) (units unknown) (unknown) Result panel 140 (unknown) (no date) (unknown) [facility] (no value) (units unknown) (unknown) Result panel 141 (unknown) (no date) (unknown) [facility] (no value) (units unknown) (unknown) Result panel 142 (unknown) (no date) (unknown) [facility] (no value) (units unknown) (unknown) Result panel 143 (unknown) (no date) (unknown) [facility] (no value) (units unknown) (unknown) Result panel 144 (unknown) (no date) (unknown) [facility] (no value) (units unknown) (unknown) Result panel 145 (unknown) (no date) (unknown) [facility] (no value) (units unknown) (unknown) Result panel 146 (unknown) (no date) (unknown) [facility] (no value) (units unknown) (unknown) Result panel 147 (unknown) (no date) (unknown) [facility] (no value) (units unknown) (unknown) Result panel 148 (unknown) (no date) (unknown) [facility] (no value) (units unknown) (unknown) Result panel 149 (unknown) (no date) (unknown) [facility] (no value) (units unknown) (unknown) Result panel 150 (unknown) (no date) (unknown) [facility] (no value) (units unknown) (unknown) Result panel 151 (unknown) (no date) (unknown) [facility] (no value) (units unknown) (unknown) Result panel 152 (unknown) (no date) (unknown) [facility] (no value) (units unknown) (unknown) Result panel 153 (unknown) (no date) (unknown) [facility] (no value) (units unknown) (unknown) Result panel 154 (unknown) (no date) (unknown) [facility] (no value) (units unknown) (unknown) Result panel 155 (unknown) (no date) (unknown) [facility] (no value) (units unknown) (unknown) Result panel 156 (unknown) (no date) (unknown) [facility] (no value) (units unknown) (unknown) Result panel 157 (unknown) (no date) (unknown) [facility] (no value) (units unknown) (unknown) Result panel 158 (unknown) (no date) (unknown) [facility] (no value) (units unknown) (unknown) Result panel 159 (unknown) (no date) (unknown) [facility] (no value) (units unknown) (unknown) Result panel 160 (unknown) (no date) (unknown) [facility] (no value) (units unknown) (unknown) Result panel 161 (unknown) (no date) (unknown) [facility] (no value) (units unknown) (unknown) Result panel 162 (unknown) (no date) (unknown) [facility] (no value) (units unknown) (unknown) Result panel 163 (unknown) (no date) (unknown) [facility] (no value) (units unknown) (unknown) Result panel 164 (unknown) (no date) (unknown) [facility] (no value) (units unknown) (unknown) Result panel 165 (unknown) (no date) (unknown) [facility] (no value) (units unknown) (unknown) Result panel 166 (unknown) (no date) (unknown) [facility] (no value) (units unknown) (unknown) Result panel 167 (unknown) (no date) (unknown) [facility] (no value) (units unknown) (unknown) Result panel 168 (unknown) (no date) (unknown) [facility] (no value) (units unknown) (unknown) Result panel 169 (unknown) (no date) (unknown) [facility] (no value) (units unknown) (unknown) Result panel 170 (unknown) (no date) (unknown) [facility] (no value) (units unknown) (unknown) Result panel 171 (unknown) (no date) (unknown) [facility] (no value) (units unknown) (unknown) Result panel 172 (unknown) (no date) (unknown) [facility] (no value) (units unknown) (unknown) Result panel 173 (unknown) (no date) (unknown) [facility] (no value) (units unknown) (unknown) Result panel 174 (unknown) (no date) (unknown) [facility] (no value) (units unknown) (unknown) Result panel 175 (unknown) (no date) (unknown) [facility] (no value) (units unknown) (unknown) Result panel 176 (unknown) (no date) (unknown) [facility] (no value) (units unknown) (unknown) Result panel 177 (unknown) (no date) (unknown) [facility] (no value) (units unknown) (unknown) Result panel 178 (unknown) (no date) (unknown) [facility] (no value) (units unknown) (unknown) Result panel 179 (unknown) (no date) (unknown) [facility] (no value) (units unknown) (unknown) Result panel 180 (unknown) (no date) (unknown) [facility] (no value) (units unknown) (unknown) Result panel 181 (unknown) (no date) (unknown) [facility] (no value) (units unknown) (unknown) Result panel 182 (unknown) (no date) (unknown) [facility] (no value) (units unknown) (unknown) Result panel 183 (unknown) (no date) (unknown) [facility] (no value) (units unknown) (unknown) Result panel 184 (unknown) (no date) (unknown) [facility] (no value) (units unknown) (unknown) Result panel 185 (unknown) (no date) (unknown) [facility] (no value) (units unknown) (unknown) Result panel 186 (unknown) (no date) (unknown) [facility] (no value) (units unknown) (unknown) Result panel 187 (unknown) (no date) (unknown) [facility] (no value) (units unknown) (unknown) Result panel 188 (unknown) (no date) (unknown) [facility] (no value) (units unknown) (unknown) Result panel 189 (unknown) (no date) (unknown) [facility] (no value) (units unknown) (unknown) Result panel 190 (unknown) (no date) (unknown) [facility] (no value) (units unknown) (unknown) Result panel 191 (unknown) (no date) (unknown) [facility] (no value) (units unknown) (unknown) Result panel 192 (unknown) (no date) (unknown) [facility] (no value) (units unknown) (unknown) Result panel 193 (unknown) (no date) (unknown) [facility] (no value) (units unknown) (unknown) Result panel 194 (unknown) (no date) (unknown) [facility] (no value) (units unknown) (unknown) Result panel 195 (unknown) (no date) (unknown) [facility] (no value) (units unknown) (unknown) Result panel 196 (unknown) (no date) (unknown) [facility] (no value) (units unknown) (unknown) Result panel 197 (unknown) (no date) (unknown) [facility] (no value) (units unknown) (unknown) Result panel 198 (unknown) (no date) (unknown) [facility] (no value) (units unknown) (unknown) Result panel 199 (unknown) (no date) (unknown) [facility] (no value) (units unknown) (unknown) Result panel 200 (unknown) (no date) (unknown) [facility] (no value) (units unknown) (unknown) Result panel 201 (unknown) (no date) (unknown) [facility] (no value) (units unknown) (unknown) Result panel 202 (unknown) (no date) (unknown) [facility] (no value) (units unknown) (unknown) Result panel 203 (unknown) (no date) (unknown) [facility] (no value) (units unknown) (unknown) Result panel 204 (unknown) (no date) (unknown) [facility] (no value) (units unknown) (unknown) Result panel 205 (unknown) (no date) (unknown) [facility] (no value) (units unknown) (unknown) Result panel 206 (unknown) (no date) (unknown) [facility] (no value) (units unknown) (unknown) Result panel 207 (unknown) (no date) (unknown) [facility] (no value) (units unknown) (unknown) Result panel 208 (unknown) (no date) (unknown) [facility] (no value) (units unknown) (unknown) Result panel 209 (unknown) (no date) (unknown) [facility] (no value) (units unknown) (unknown) Result panel 210 (unknown) (no date) (unknown) [facility] (no value) (units unknown) (unknown) Result panel 211 (unknown) (no date) (unknown) [facility] (no value) (units unknown) (unknown) Result panel 212 (unknown) (no date) (unknown) [facility] (no value) (units unknown) (unknown) Result panel 213 (unknown) (no date) (unknown) [facility] (no value) (units unknown) (unknown) Result panel 214 (unknown) (no date) (unknown) [facility] (no value) (units unknown) (unknown) Result panel 215 (unknown) (no date) (unknown) [facility] (no value) (units unknown) (unknown) Result panel 216 (unknown) (no date) (unknown) [facility] (no value) (units unknown) (unknown) Result panel 217 (unknown) (no date) (unknown) [facility] (no value) (units unknown) (unknown) Result panel 218 (unknown) (no date) (unknown) [facility] (no value) (units unknown) (unknown) Result panel 219 (unknown) (no date) (unknown) [facility] (no value) (units unknown) (unknown) Result panel 220 (unknown) (no date) (unknown) [facility] (no value) (units unknown) (unknown) Result panel 221 (unknown) (no date) (unknown) [facility] (no value) (units unknown) (unknown) Result panel 222 (unknown) (no date) (unknown) [facility] (no value) (units unknown) (unknown) Result panel 223 (unknown) (no date) (unknown) [facility] (no value) (units unknown) (unknown) Result panel 224 (unknown) (no date) (unknown) [facility] (no value) (units unknown) (unknown) Result panel 225 (unknown) (no date) (unknown) [facility] (no value) (units unknown) (unknown) Result panel 226 (unknown) (no date) (unknown) [facility] (no value) (units unknown) (unknown) Result panel 227 (unknown) (no date) (unknown) [facility] (no value) (units unknown) (unknown) Result panel 228 (unknown) (no date) (unknown) [facility] (no value) (units unknown) (unknown) Result panel 229 (unknown) (no date) (unknown) [facility] (no value) (units unknown) (unknown) Result panel 230 (unknown) (no date) (unknown) [facility] (no value) (units unknown) (unknown) Result panel 231 (unknown) (no date) (unknown) [facility] (no value) (units unknown) (unknown) Result panel 232 (unknown) (no date) (unknown) [facility] (no value) (units unknown) (unknown) Result panel 233 (unknown) (no date) (unknown) [facility] (no value) (units unknown) (unknown) Result panel 234 (unknown) (no date) (unknown) [facility] (no value) (units unknown) (unknown) Result panel 235 (unknown) (no date) (unknown) [facility] (no value) (units unknown) (unknown) Result panel 236 (unknown) (no date) (unknown) [facility] (no value) (units unknown) (unknown) Result panel 237 (unknown) (no date) (unknown) [facility] (no value) (units unknown) (unknown) Result panel 238 (unknown) (no date) (unknown) [facility] (no value) (units unknown) (unknown) Result panel 239 (unknown) (no date) (unknown) [facility] (no value) (units unknown) (unknown) Result panel 240 (unknown) (no date) (unknown) [facility] (no value) (units unknown) (unknown) Result panel 241 (unknown) (no date) (unknown) [facility] (no value) (units unknown) (unknown) Result panel 242 (unknown) (no date) (unknown) [facility] (no value) (units unknown) (unknown) Result panel 243 (unknown) (no date) (unknown) [facility] (no value) (units unknown) (unknown) Result panel 244 (unknown) (no date) (unknown) [facility] (no value) (units unknown) (unknown) Result panel 245 (unknown) (no date) (unknown) [facility] (no value) (units unknown) (unknown) Result panel 246 (unknown) (no date) (unknown) [facility] (no value) (units unknown) (unknown) Result panel 247 (unknown) (no date) (unknown) [facility] (no value) (units unknown) (unknown) Result panel 248 (unknown) (no date) (unknown) [facility] (no value) (units unknown) (unknown) Result panel 249 (unknown) (no date) (unknown) [facility] (no value) (units unknown) (unknown) Result panel 250 (unknown) (no date) (unknown) [facility] (no value) (units unknown) (unknown) Result panel 251 (unknown) (no date) (unknown) [facility] (no value) (units unknown) (unknown) Result panel 252 (unknown) (no date) (unknown) [facility] (no value) (units unknown) (unknown) Result panel 253 (unknown) (no date) (unknown) [facility] (no value) (units unknown) (unknown) Result panel 254 (unknown) (no date) (unknown) [facility] (no value) (units unknown) (unknown) Result panel 255 (unknown) (no date) (unknown) [facility] (no value) (units unknown) (unknown) Result panel 256 (unknown) (no date) (unknown) [facility] (no value) (units unknown) (unknown) Result panel 257 (unknown) (no date) (unknown) [facility] (no value) (units unknown) (unknown) Result panel 258 (unknown) (no date) (unknown) [facility] (no value) (units unknown) (unknown) Result panel 259 (unknown) (no date) (unknown) [facility] (no value) (units unknown) (unknown) Result panel 260 (unknown) (no date) (unknown) [facility] (no value) (units unknown) (unknown) Result panel 261 (unknown) (no date) (unknown) [facility] (no value) (units unknown) (unknown) Result panel 262 (unknown) (no date) (unknown) [facility] (no value) (units unknown) (unknown) Result panel 263 (unknown) (no date) (unknown) [facility] (no value) (units unknown) (unknown) Result panel 264 (unknown) (no date) (unknown) [facility] (no value) (units unknown) (unknown) Result panel 265 (unknown) (no date) (unknown) [facility] (no value) (units unknown) (unknown) Result panel 266 (unknown) (no date) (unknown) [facility] (no value) (units unknown) (unknown) Result panel 267 (unknown) (no date) (unknown) [facility] (no value) (units unknown) (unknown) Result panel 268 (unknown) (no date) (unknown) [facility] (no value) (units unknown) (unknown) Result panel 269 (unknown) (no date) (unknown) [facility] (no value) (units unknown) (unknown) Result panel 270 (unknown) (no date) (unknown) [facility] (no value) (units unknown) (unknown) Result panel 271 (unknown) (no date) (unknown) [facility] (no value) (units unknown) (unknown) Result panel 272 (unknown) (no date) (unknown) [facility] (no value) (units unknown) (unknown) Result panel 273 (unknown) (no date) (unknown) [facility] (no value) (units unknown) (unknown) Result panel 274 (unknown) (no date) (unknown) [facility] (no value) (units unknown) (unknown) Result panel 275 (unknown) (no date) (unknown) [facility] (no value) (units unknown) (unknown) Result panel 276 (unknown) (no date) (unknown) [facility] (no value) (units unknown) (unknown) Result panel 277 (unknown) (no date) (unknown) [facility] (no value) (units unknown) (unknown) Result panel 278 (unknown) (no date) (unknown) [facility] (no value) (units unknown) (unknown) Result panel 279 (unknown) (no date) (unknown) [facility] (no value) (units unknown) (unknown) Result panel 280 (unknown) (no date) (unknown) [facility] (no value) (units unknown) (unknown) Result panel 281 (unknown) (no date) (unknown) [facility] (no value) (units unknown) (unknown) Result panel 282 (unknown) (no date) (unknown) [facility] (no value) (units unknown) (unknown) Result panel 283 (unknown) (no date) (unknown) [facility] (no value) (units unknown) (unknown) Result panel 284 (unknown) (no date) (unknown) [facility] (no value) (units unknown) (unknown) Result panel 285 (unknown) (no date) (unknown) [facility] (no value) (units unknown) (unknown) Result panel 286 (unknown) (no date) (unknown) [facility] (no value) (units unknown) (unknown) Result panel 287 (unknown) (no date) (unknown) [facility] (no value) (units unknown) (unknown) Result panel 288 (unknown) (no date) (unknown) [facility] (no value) (units unknown) (unknown) Result panel 289 (unknown) (no date) (unknown) [facility] (no value) (units unknown) (unknown) Result panel 290 (unknown) (no date) (unknown) [facility] (no value) (units unknown) (unknown) Result panel 291 (unknown) (no date) (unknown) [facility] (no value) (units unknown) (unknown) Result panel 292 (unknown) (no date) (unknown) [facility] (no value) (units unknown) (unknown) Result panel 293 (unknown) (no date) (unknown) [facility] (no value) (units unknown) (unknown) Result panel 294 (unknown) (no date) (unknown) [facility] (no value) (units unknown) (unknown) Result panel 295 (unknown) (no date) (unknown) [facility] (no value) (units unknown) (unknown) Result panel 296 (unknown) (no date) (unknown) [facility] (no value) (units unknown) (unknown) Result panel 297 (unknown) (no date) (unknown) [facility] (no value) (units unknown) (unknown) Result panel 298 (unknown) (no date) (unknown) [facility] (no value) (units unknown) (unknown) Result panel 299 (unknown) (no date) (unknown) [facility] (no value) (units unknown) (unknown) Result panel 300 (unknown) (no date) (unknown) [facility] (no value) (units unknown) (unknown) Result panel 301 (unknown) (no date) (unknown) [facility] (no value) (units unknown) (unknown) Result panel 302 (unknown) (no date) (unknown) [facility] (no value) (units unknown) (unknown) Result panel 303 (unknown) (no date) (unknown) [facility] (no value) (units unknown) (unknown) Result panel 304 (unknown) (no date) (unknown) [facility] (no value) (units unknown) (unknown) Result panel 305 (unknown) (no date) (unknown) [facility] (no value) (units unknown) (unknown) Result panel 306 (unknown) (no date) (unknown) [facility] (no value) (units unknown) (unknown) Result panel 307 (unknown) (no date) (unknown) [facility] (no value) (units unknown) (unknown) Result panel 308 (unknown) (no date) (unknown) [facility] (no value) (units unknown) (unknown) Result panel 309 (unknown) (no date) (unknown) [facility] (no value) (units unknown) (unknown) Result panel 310 (unknown) (no date) (unknown) [facility] (no value) (units unknown) (unknown) Result panel 311 (unknown) (no date) (unknown) [facility] (no value) (units unknown) (unknown) Result panel 312 (unknown) (no date) (unknown) [facility] (no value) (units unknown) (unknown) Result panel 313 (unknown) (no date) (unknown) [facility] (no value) (units unknown) (unknown) Result panel 314 (unknown) (no date) (unknown) [facility] (no value) (units unknown) (unknown) Result panel 315 (unknown) (no date) (unknown) [facility] (no value) (units unknown) (unknown) Result panel 316 (unknown) (no date) (unknown) [facility] (no value) (units unknown) (unknown) Result panel 317 (unknown) (no date) (unknown) [facility] (no value) (units unknown) (unknown) Result panel 318 (unknown) (no date) (unknown) [facility] (no value) (units unknown) (unknown) Result panel 319 (unknown) (no date) (unknown) [facility] (no value) (units unknown) (unknown) Result panel 320 (unknown) (no date) (unknown) [facility] (no value) (units unknown) (unknown) Result panel 321 (unknown) (no date) (unknown) [facility] (no value) (units unknown) (unknown) Result panel 322 (unknown) (no date) (unknown) [facility] (no value) (units unknown) (unknown) Result panel 323 (unknown) (no date) (unknown) [facility] (no value) (units unknown) (unknown) Result panel 324 (unknown) (no date) (unknown) [facility] (no value) (units unknown) (unknown) Result panel 325 (unknown) (no date) (unknown) [facility] (no value) (units unknown) (unknown) Result panel 326 (unknown) (no date) (unknown) [facility] (no value) (units unknown) (unknown) Result panel 327 (unknown) (no date) (unknown) [facility] (no value) (units unknown) (unknown) Result panel 328 (unknown) (no date) (unknown) [facility] (no value) (units unknown) (unknown) Result panel 329 (unknown) (no date) (unknown) [facility] (no value) (units unknown) (unknown) Result panel 330 (unknown) (no date) (unknown) [facility] (no value) (units unknown) (unknown) Result panel 331 (unknown) (no date) (unknown) [facility] (no value) (units unknown) (unknown) Result panel 332 (unknown) (no date) (unknown) [facility] (no value) (units unknown) (unknown) Result panel 333 (unknown) (no date) (unknown) [facility] (no value) (units unknown) (unknown) Result panel 334 (unknown) (no date) (unknown) [facility] (no value) (units unknown) (unknown) Result panel 335 (unknown) (no date) (unknown) [facility] (no value) (units unknown) (unknown) Result panel 336 (unknown) (no date) (unknown) [facility] (no value) (units unknown) (unknown) Result panel 337 (unknown) (no date) (unknown) [facility] (no value) (units unknown) (unknown) Result panel 338 (unknown) (no date) (unknown) [facility] (no value) (units unknown) (unknown) Result [...] (unknown) (unknown) (no date) (unknown) (unknown) : [id number] (units unknown) (unknown) (unknown) (no date) (unknown) [...] (unknown) (no date) (unknown) (unknown) : 1995 Acct:[id number] (units unknown) (unknown) (unknown) (no date) (unknown) [...] unknown) (unknown) (unknown) (no date) (unknown) (unknown) [address] [address] (units unknown) (unknown) (unknown) (no date) (unknown) [...] date) (unknown) (unknown) Christi Johnson , DNP, PROGRAM CONSULTANT [Primary Care Provider] (units unknown) (unknown) (unknown) [...] (unknown) (unknown) (no date) (unknown) (unknown) : [id number] (units unknown) (unknown) (unknown) (no date) (unknown) [...] (unknown) (no date) (unknown) (unknown) : 1995 Acct:[id number] (units unknown) (unknown) (unknown) (no date) (unknown) [...] unknown) (unknown) (unknown) (no date) (unknown) (unknown) [address] [address] (units unknown) (unknown) (unknown) (no date) (unknown) [...] date) (unknown) (unknown) Christi Johnson , JORDAN, PROGRAM CONSULTANT [Primary Care Provider] (units unknown) (unknown) (unknown) [...] (unknown) (unknown) (no date) (unknown) (unknown) #: [id number] (units unknown) (unknown) (unknown) (no date) (unknown) (unknown) 11/15/22 (units unknown) (unknown) (unknown) (no date) (unknown) (unknown) [facility] [address] [place] [address] (units unknown) (unknown) (unknown) (no date) (unknown) (unknown) 5 mm (units unknown) (unknown) (unknown) (no date) (unknown) (unknown) Accession Number: [id number] (units unknown) (unknown) (unknown) (no date) (unknown) (unknown) Age/Sex: 27 / F Date of Service: (units unknown) (unknown) (unknown) (no date) (unknown) (unknown) [place] [address] (units unknown) (unknown) (unknown) (no date) (unknown) [...] (unknown) (unknown) (no date) (unknown) (unknown) COMPARISON: [facility], MR, MR ABDOMEN MRCP, 06/12/2022, 10:50. [...] (unknown) (no date) (unknown) (unknown) : 1995 Acct:[id number] (units unknown) (unknown) (unknown) (no date) (unknown) [...] unknown) (unknown) (unknown) (no date) (unknown) (unknown) [facility] (units unknown) (unknown) (unknown) (no date) [...] (unknown) (unknown) (no date) (unknown) (unknown) [facility] (units unknown) (unknown) (unknown) (no date) (unknown) (unknown) Solid organs: Liver is unremarkable. 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 No pathologic (units unknown) (unknown) (unknown) (no date) (unknown) (unknown) TECHNIQUE: (units unknown) (unknown) (unknown) (no date) (unknown) (unknown) [facility], CT, CT ABDOMEN PELVIS WITHOUT CONTRAST, 06/11/2022, 19:33. (units unknown) (unknown) (unknown) (no date) (unknown) (unknown) [facility], MR, MR ABDOMEN MRCP, 06/12/2022, [...] (unknown) (unknown) (no date) (unknown) (unknown) : [id number] (units unknown) (unknown) (unknown) (no date) (unknown) [...] (unknown) (no date) (unknown) (unknown) : 1995 Acct:[id number] (units unknown) (unknown) (unknown) (no date) (unknown) [...] unknown) (unknown) (unknown) (no date) (unknown) (unknown) [address] [address] (units unknown) (unknown) (unknown) (no date) (unknown) [...] (no date) (unknown) (unknown) Lymph # (Auto) ([id number]) /uL (units unknown) (unknown) (unknown) (no date) (unknown) (unknown) Lymph # (Auto) 2200 (0956-0057) /uL (units unknown) (unknown) (unknown) (no date) [...] unknown) (unknown) (unknown) (no date) (unknown) (unknown) [place] # (Auto) (0-900 ) /uL (units unknown) (unknown) (unknown) (no date) (unknown) (unknown) [place] # (Auto) 400 (0-900) /uL (units unknown) (unknown) (unknown) (no date) (unknown) (unknown) [place] % (Auto) (3-14) % (units unknown) (unknown) (unknown) (no date) (unknown) (unknown) [place] % (Auto) 6.9 (3-14) % (units unknown) (unknown) (unknown) (no date) (unknown) (unknown) Morbid obesity (units unknown) (unknown) (unknown) (no date) (unknown) (unknown) Mother BRCA positive (units unknown) (unknown) (unknown) (no date) (unknown) (unknown) Nephrolithiasis (-2018) (units unknown) (unknown) (unknown) (no date) (unknown) (unknown) Neut # (Auto) (3098-8792) /uL (units unknown) (unknown) (unknown) (no date) (unknown) (unknown) Neut # (Auto) 3500 (6808-4081) /uL (units unknown) (unknown) (unknown) (no date) [...] (unknown) (no date) (unknown) (unknown) Ur Specific [place] (1.000-1.035) (units unknown) (unknown) (unknown) (no date) (unknown) (unknown) Ur Specific [place] 1.025 (1.000-1.035) (units unknown) (unknown) (unknown) (no [...] (unknown) (no date) (unknown) (unknown) Urine Specific [place] 1.020 (units unknown) (unknown) (unknown) (no date) [...] date) (unknown) (unknown) Christi Johnson , JORDAN, PROGRAM CONSULTANT [Primary Care Provider] (units unknown) (unknown) (unknown) [...] (unknown) (unknown) (no date) (unknown) (unknown) : [id number] (units unknown) (unknown) (unknown) (no date) (unknown) [...] (unknown) (no date) (unknown) (unknown) : 1995 Acct:[id number] (units unknown) (unknown) (unknown) (no date) (unknown) [...] unknown) (unknown) (unknown) (no date) (unknown) (unknown) [address] [address] (units unknown) (unknown) (unknown) (no date) (unknown) [...] (no date) (unknown) (unknown) Lymph # (Auto) (9645-1683) /uL (units unknown) (unknown) (unknown) (no date) (unknown) (unknown) Lymph # (Auto) 2200 (3496-6057) /uL (units unknown) (unknown) (unknown) (no date) [...] unknown) (unknown) (unknown) (no date) (unknown) (unknown) [place] # (Auto) (0-900 ) /uL (units unknown) (unknown) (unknown) (no date) (unknown) (unknown) [place] # (Auto) 400 (0-900) /uL (units unknown) (unknown) (unknown) (no date) (unknown) (unknown) [place] % (Auto) (3-14) % (units unknown) (unknown) (unknown) (no date) (unknown) (unknown) [place] % (Auto) 6.9 (3-14) % (units unknown) [...] (no date) (unknown) (unknown) Neut # (Auto) (7197-0117) /uL (units unknown) (unknown) (unknown) (no date) (unknown) (unknown) Neut # (Auto) 3500 (2897-1356) /uL (units unknown) (unknown) (unknown) (no date) [...] unknown) (unknown) (unknown) (no date) (unknown) (unknown) [facility] recently for an EGD which she [...] (unknown) (no date) (unknown) (unknown) Ur Specific [place] (1.000-1.035) (units unknown) (unknown) (unknown) (no date) (unknown) (unknown) Ur Specific [place] 1.025 (1.000-1.035) (units unknown) (unknown) (unknown) (no [...] (unknown) (no date) (unknown) (unknown) Urine Specific [place] 1.020 (units unknown) (unknown) (unknown) (no date) [...] date) (unknown) (unknown) Christi Johnson , DNP, PROGRAM CONSULTANT [Primary Care Provider] (units unknown) (unknown) (unknown) [...] (unknown) (unknown) through XII grossly intact. [Good djqzvt-ao-oyop, good dtgu-pc-byjv, strength (units unknown) (unknown) (unknown) (no date) [...] (unknown) (unknown) (no date) (unknown) (unknown) : [id number] (units unknown) (unknown) (unknown) (no date) (unknown) [...] (unknown) (no date) (unknown) (unknown) : 1995 Acct:[id number] (units unknown) (unknown) (unknown) (no date) (unknown) [...] unknown) (unknown) (unknown) (no date) (unknown) (unknown) [address] [address] (units unknown) (unknown) (unknown) (no date) (unknown) [...] (no date) (unknown) (unknown) Lymph # (Auto) (9314-9478) /uL (units unknown) (unknown) (unknown) (no date) (unknown) (unknown) Lymph # (Auto) 2200 (4968-7726) /uL (units unknown) (unknown) (unknown) (no date) [...] unknown) (unknown) (unknown) (no date) (unknown) (unknown) [place] # (Auto) (0-900 ) /uL (units unknown) (unknown) (unknown) (no date) (unknown) (unknown) [place] # (Auto) 400 (0-900) /uL (units unknown) (unknown) (unknown) (no date) (unknown) (unknown) [place] % (Auto) (3-14) % (units unknown) (unknown) (unknown) (no date) (unknown) (unknown) [place] % (Auto) 6.9 (3-14) % (units unknown) (unknown) (unknown) (no date) (unknown) (unknown) Morbid obesity (units unknown) (unknown) (unknown) (no date) (unknown) (unknown) Mother BRCA positive (units unknown) (unknown) (unknown) (no date) (unknown) (unknown) NEUROLOGICAL: Alert and oriented x4.Normal gait and speech. (units unknown) (unknown) (unknown) (no date) (unknown) (unknown) Nephrolithiasis () (units unknown) (unknown) (unknown) (no date) (unknown) (unknown) Neut # (Auto) (9967-5977) /uL (units unknown) (unknown) (unknown) (no date) (unknown) (unknown) Neut # (Auto) 3500 (3752-3956) /uL (units unknown) (unknown) (unknown) (no date) [...] unknown) (unknown) (unknown) (no date) (unknown) (unknown) [facility] recently for an EGD which she [...] (unknown) (no date) (unknown) (unknown) Ur Specific [place] (1.000-1.035) (units unknown) (unknown) (unknown) (no date) (unknown) (unknown) Ur Specific [place] 1.025 (1.000-1.035) (units unknown) (unknown) (unknown) (no [...] (unknown) (no date) (unknown) (unknown) Urine Specific [place] 1.020 (units unknown) (unknown) (unknown) (no date) [...] date) (unknown) (unknown) Christi Johnson , DNP, PROGRAM CONSULTANT [Primary Care Provider] (units unknown) (unknown) (unknown) [...] (unknown) (unknown) (no date) (unknown) (unknown) : [id number] (units unknown) (unknown) (unknown) (no date) (unknown) [...] (unknown) (unknown) (no date) (unknown) (unknown) COMPARISON:? [facility], MR, MR ABDOMEN MRCP, 06/12/2022, 10:50.? [...] (unknown) (no date) (unknown) (unknown) : 1995 Acct:[id number] (units unknown) (unknown) (unknown) (no date) (unknown) [...] unknown) (unknown) (unknown) (no date) (unknown) (unknown) [address] [address] (units unknown) (unknown) (unknown) (no date) (unknown) [...] (no date) (unknown) (unknown) Lymph # (Auto) (7878-9575) /uL (units unknown) (unknown) (unknown) (no date) (unknown) (unknown) Lymph # (Auto) 2200 (7407-9796) /uL (units unknown) (unknown) (unknown) (no date) [...] unknown) (unknown) (unknown) (no date) (unknown) (unknown) [place] # (Auto) (0-900 ) /uL (units unknown) (unknown) (unknown) (no date) (unknown) (unknown) [place] # (Auto) 400 (0-900) /uL (units unknown) (unknown) (unknown) (no date) (unknown) (unknown) [place] % (Auto) (3-14) % (units unknown) (unknown) (unknown) (no date) (unknown) (unknown) [place] % (Auto) 6.9 (3-14) % (units unknown) (unknown) (unknown) (no date) (unknown) (unknown) Morbid obesity (units unknown) (unknown) (unknown) (no date) (unknown) (unknown) Mother BRCA positive (units unknown) (unknown) (unknown) (no date) (unknown) (unknown) NEUROLOGICAL: Alert and oriented x4.Normal gait and speech. (units unknown) (unknown) (unknown) (no date) (unknown) (unknown) Nephrolithiasis (-2017) (units unknown) (unknown) (unknown) (no date) (unknown) (unknown) Neut # (Auto) (8952-4899) /uL (units unknown) (unknown) (unknown) (no date) (unknown) (unknown) Neut # (Auto) 3500 (8109-8041) /uL (units unknown) (unknown) (unknown) (no date) [...] unknown) (unknown) (unknown) (no date) (unknown) (unknown) [facility] recently for an EGD which she was found to have erosive (units unknown) (unknown) (unknown) (no date) (unknown) (unknown) [facility] (units unknown) (unknown) (unknown) (no date) [...] (unknown) (no date) (unknown) (unknown) Ur Specific [place] (1.000-1.035) (units unknown) (unknown) (unknown) (no date) (unknown) (unknown) Ur Specific [place] 1.025 (1.000-1.035) (units unknown) (unknown) (unknown) (no [...] (unknown) (no date) (unknown) (unknown) Urine Specific [place] 1.020 (units unknown) (unknown) (unknown) (no date) [...] unknown) (unknown) (unknown) (no date) (unknown) (unknown) [facility], CT, CT ABDOMEN PELVIS WITHOUT CONTRAST, 06/11/2022, 19:33.? (units unknown) (unknown) (unknown) (no date) (unknown) (unknown) [facility], MR, MR ABDOMEN MRCP, 06/12/2022, [...] date) (unknown) (unknown) Christi Johnson , JORDAN, PROGRAM CONSULTANT [Primary Care Provider] (units unknown) (unknown) (unknown) [...] (unknown) (unknown) (no date) (unknown) (unknown) : [id number] (units unknown) (unknown) (unknown) (no date) (unknown) [...] (unknown) (unknown) (no date) (unknown) (unknown) COMPARISON:? [facility], MR, MR ABDOMEN MRCP, 06/12/2022, 10:50.? [...] (unknown) (no date) (unknown) (unknown) : 1995 Acct:[id number] (units unknown) (unknown) (unknown) (no date) (unknown) [...] unknown) (unknown) (unknown) (no date) (unknown) (unknown) [place] [address] (units unknown) (unknown) (unknown) (no date) (unknown) [...] (no date) (unknown) (unknown) Lymph # (Auto) (1332-7534) /uL (units unknown) (unknown) (unknown) (no date) (unknown) (unknown) Lymph # (Auto) 2200 (6759-9038) /uL (units unknown) (unknown) (unknown) (no date) [...] unknown) (unknown) (unknown) (no date) (unknown) (unknown) [place] # (Auto) (0-900 ) /uL (units unknown) (unknown) (unknown) (no date) (unknown) (unknown) [place] # (Auto) 400 (0-900) /uL (units unknown) (unknown) (unknown) (no date) (unknown) (unknown) [place] % (Auto) (3-14) % (units unknown) (unknown) (unknown) (no date) (unknown) (unknown) [place] % (Auto) 6.9 (3-14) % (units unknown) (unknown) (unknown) (no date) (unknown) (unknown) Morbid obesity (units unknown) (unknown) (unknown) (no date) (unknown) (unknown) Mother BRCA positive (units unknown) (unknown) (unknown) (no date) (unknown) (unknown) NEUROLOGICAL: Alert and oriented x4.Normal gait and speech. (units unknown) (unknown) (unknown) (no date) (unknown) (unknown) Nephrolithiasis (-2018) (units unknown) (unknown) (unknown) (no date) (unknown) (unknown) Neut # (Auto) (5067-8398) /uL (units unknown) (unknown) (unknown) (no date) (unknown) (unknown) Neut # (Auto) 3500 (8617-9176) /uL (units unknown) (unknown) (unknown) (no date) [...] unknown) (unknown) (unknown) (no date) (unknown) (unknown) [facility] recently for an EGD which she was found to have erosive (units unknown) (unknown) (unknown) (no date) (unknown) (unknown) [facility] (units unknown) (unknown) (unknown) (no date) [...] (unknown) (no date) (unknown) (unknown) Ur Specific [place] (1.000-1.035) (units unknown) (unknown) (unknown) (no date) (unknown) (unknown) Ur Specific [place] 1.025 (1.000-1.035) (units unknown) (unknown) (unknown) (no [...] (unknown) (no date) (unknown) (unknown) Urine Specific [place] 1.020 (units unknown) (unknown) (unknown) (no date) [...] unknown) (unknown) (unknown) (no date) (unknown) (unknown) [facility], CT, CT ABDOMEN PELVIS WITHOUT CONTRAST, 06/11/2022, 19:33.? (units unknown) (unknown) (unknown) (no date) (unknown) (unknown) [facility], MR, MR ABDOMEN MRCP, 06/12/2022, [...] date) (unknown) (unknown) Christi Johnson , JORDAN, PROGRAM CONSULTANT [Primary Care Provider] (units unknown) (unknown) (unknown) [...] care provider in 2-3 days or call [phone] (units unknown) (unknown) (unknown) (no date) (unknown) [...] (unknown) (unknown) (no date) (unknown) (unknown) : [id number] (units unknown) (unknown) (unknown) (no date) (unknown) [...] (unknown) (unknown) (no date) (unknown) (unknown) COMPARISON:? [facility], MR, MR ABDOMEN [facility], 06/12/2022, 10:50.? (units unknown) (unknown) (unknown) (no [...] (unknown) (no date) (unknown) (unknown) : 1995 Acct:[id number] (units unknown) (unknown) (unknown) (no date) (unknown) [...] unknown) (unknown) (unknown) (no date) (unknown) (unknown) [address] [address] (units unknown) (unknown) (unknown) (no date) (unknown) [...] mg once a day for 3 days--> [facility] (units unknown) (unknown) (unknown) (no date) [...] (no date) (unknown) (unknown) Lymph # (Auto) (9495-5391) /uL (units unknown) (unknown) (unknown) (no date) (unknown) (unknown) Lymph # (Auto) 2200 (2200-7781) /uL (units unknown) (unknown) (unknown) (no date) [...] unknown) (unknown) (unknown) (no date) (unknown) (unknown) [place] # (Auto) (0-900 ) /uL (units unknown) (unknown) (unknown) (no date) (unknown) (unknown) [place] # (Auto) 400 (0-900) /uL (units unknown) (unknown) (unknown) (no date) (unknown) (unknown) [place] % (Auto) (3-14) % (units unknown) (unknown) (unknown) (no date) (unknown) (unknown) [place] % (Auto) 6.9 (3-14) % (units unknown) (unknown) (unknown) (no date) (unknown) (unknown) Morbid obesity (units unknown) (unknown) (unknown) (no date) (unknown) (unknown) Mother BRCA positive (units unknown) (unknown) (unknown) (no date) (unknown) (unknown) NEUROLOGICAL: Alert and oriented x4.Normal gait and speech. (units unknown) (unknown) (unknown) (no date) (unknown) (unknown) Nephrolithiasis (-2018) (units unknown) (unknown) (unknown) (no date) (unknown) (unknown) Neut # (Auto) (7270-1665) /uL (units unknown) (unknown) (unknown) (no date) (unknown) (unknown) Neut # (Auto) 3500 (4290-6926) /uL (units unknown) (unknown) (unknown) (no date) [...] unknown) (unknown) (unknown) (no date) (unknown) (unknown) [facility] recently for an EGD which she was found to have erosive (units unknown) (unknown) (unknown) (no date) (unknown) (unknown) [facility] (units unknown) (unknown) (unknown) (no date) [...] (unknown) (no date) (unknown) (unknown) Ur Specific [place] (1.000-1.035) (units unknown) (unknown) (unknown) (no date) (unknown) (unknown) Ur Specific [place] 1.025 (1.000-1.035) (units unknown) (unknown) (unknown) (no [...] (unknown) (no date) (unknown) (unknown) Urine Specific [place] 1.020 (units unknown) (unknown) (unknown) (no date) [...] unknown) (unknown) (unknown) (no date) (unknown) (unknown) [facility], CT, CT ABDOMEN PELVIS WITHOUT CONTRAST, 06/11/2022, 19:33.? (units unknown) (unknown) (unknown) (no date) (unknown) (unknown) [facility], MR, MR ABDOMEN MRCP, 06/12/2022, [...] date) (unknown) (unknown) Christi Johnson , DNP, PROGRAM CONSULTANT [Primary Care Provider] (units unknown) (unknown) (unknown) [...] (unknown) (unknown) (no date) (unknown) (unknown) #: [id number] (units unknown) (unknown) (unknown) (no date) (unknown) (unknown) 11/21/22 (units unknown) (unknown) (unknown) (no date) (unknown) (unknown) 1. Mild superior subluxation of AC joint suggesting grade 2 AC separation. (units unknown) (unknown) (unknown) (no date) (unknown) (unknown) [address] [place] [address] (units unknown) (unknown) (unknown) (no date) (unknown) (unknown) 2. Intact glenohumeral joint. (units unknown) (unknown) (unknown) (no date) (unknown) (unknown) Accession Number: [id number] (units unknown) (unknown) (unknown) (no date) (unknown) (unknown) Accession Number: [id number] (units unknown) (unknown) (unknown) (no date) (unknown) (unknown) Age/Sex: 27 / F Date of Service: (units unknown) (unknown) (unknown) (no date) (unknown) (unknown) [place] [address] (units unknown) (unknown) (unknown) (no date) (unknown) [...] (unknown) (unknown) (no date) (unknown) (unknown) COMPARISON: [facility], CR, XR CHEST 1V, 06/28/2020, 15:14. (units unknown) (unknown) (unknown) (no date) (unknown) (unknown) COMPARISON: [facility], CR, XR SHOULDER RT MIN 2V, 05/05/2022, 17:39. (units unknown) (unknown) (unknown) (no date) (unknown) (unknown) : 1995 Acct:[id number] (units unknown) (unknown) (unknown) (no date) (unknown) (unknown) Dictated by: Mercy Gil M.D. on 11/21/2022 at 16:59 (units unknown) (unknown) (unknown) (no date) (unknown) (unknown) Dictated by: Zaida Aceves M.D. on 11/21/2022 at 16:54 (units unknown) (unknown) (unknown) (no date) (unknown) (unknown) FINDINGS: (units unknown) (unknown) (unknown) (no date) (unknown) (unknown) [facility], CR, XR CHEST 1V, 11/21/2022, [...] unknown) (unknown) (unknown) (no date) (unknown) (unknown) [facility] (units unknown) (unknown) (unknown) (no date) (unknown) (unknown) Energy (units unknown) (unknown) (unknown) (no date) (unknown) [...] (unknown) (unknown) (no date) (unknown) (unknown) #: [id number] (units unknown) (unknown) (unknown) (no date) (unknown) (unknown) 11/21/22 (units unknown) (unknown) (unknown) (no date) (unknown) (unknown) 1. No acute intracranial process. (units unknown) (unknown) (unknown) (no date) (unknown) (unknown) [address] [place] [address] (units unknown) (unknown) (unknown) (no date) (unknown) (unknown) 12:18. (units unknown) (unknown) (unknown) (no date) (unknown) (unknown) Accession Number: [id number] (units unknown) (unknown) (unknown) (no date) (unknown) (unknown) Accession Number: [id number] (units unknown) (unknown) (unknown) (no date) (unknown) (unknown) Accession Number: [id number] (units unknown) (unknown) (unknown) (no date) (unknown) (unknown) Age/Sex: 27 / F Date of Service: (units unknown) (unknown) (unknown) (no date) (unknown) (unknown) [place] [id number] (units unknown) (unknown) (unknown) (no date) (unknown) [...] (unknown) (unknown) (no date) (unknown) (unknown) COMPARISON: [facility], CR, ELBOW 3+ VIEWS LEFT, 07/19/2008, 15:34. SNO (units unknown) (unknown) (unknown) (no date) (unknown) (unknown) COMPARISON: [facility], CT, CT CERVICAL SPINE WO CON, 04/22/2022, 15:07. (units unknown) (unknown) (unknown) (no date) (unknown) (unknown) COMPARISON: [facility], MR, MR BRAIN WITHOUT CONTRAST, 06/07/2022, (units unknown) (unknown) (unknown) (no date) (unknown) (unknown) CSF spaces: Basal cisterns are patent. No extra-axial fluid collections. (units unknown) (unknown) (unknown) (no date) (unknown) (unknown) CT Scan Report (units unknown) (unknown) (unknown) (no date) (unknown) (unknown) : 1995 Acct:[id number] (units unknown) (unknown) (unknown) (no date) (unknown) (unknown) Dictated by: Mercy Gil M.D. on 11/21/2022 at 17:01 (units unknown) (unknown) (unknown) (no date) (unknown) (unknown) Dictated by: Zaida Aceves M.D. on 11/21/2022 at 16:50 (units unknown) (unknown) (unknown) (no date) (unknown) (unknown) Dictated by: Zadia Aceves M.D. on 11/21/2022 at 16:51 (units [...] unknown) (unknown) (unknown) (no date) (unknown) (unknown) [facility] (units unknown) (unknown) (unknown) (no date) (unknown) (unknown) [facility], CT, CT HEAD/BRAIN WO CON, 05/05/2022, [...] (unknown) (unknown) (no date) (unknown) (unknown) : [id number] (units unknown) (unknown) (unknown) (no date) (unknown) [...] (unknown) (no date) (unknown) (unknown) : 1995 Acct:[id number] (units unknown) (unknown) (unknown) (no date) (unknown) [...] unknown) (unknown) (unknown) (no date) (unknown) (unknown) [address] [address] (units unknown) (unknown) (unknown) (no date) (unknown) [...] (no date) (unknown) (unknown) Lymph # (Auto) (5410-2618) /uL (units unknown) (unknown) (unknown) (no date) (unknown) (unknown) Lymph # (Auto) 2200 (5572-7749) /uL (units unknown) (unknown) (unknown) (no date) [...] unknown) (unknown) (unknown) (no date) (unknown) (unknown) [place] # (Auto) (0-900 ) /uL (units unknown) (unknown) (unknown) (no date) (unknown) (unknown) [place] # (Auto) 500 (0-900) /uL (units unknown) (unknown) (unknown) (no date) (unknown) (unknown) [place] % (Auto) (3-14) % (units unknown) (unknown) (unknown) (no date) (unknown) (unknown) [place] % (Auto) 9.4 (3-14) % (units unknown) (unknown) (unknown) (no date) (unknown) (unknown) Morbid obesity (units unknown) (unknown) (unknown) (no date) (unknown) (unknown) Mother BRCA positive (units unknown) (unknown) (unknown) (no date) (unknown) (unknown) Nephrolithiasis (-2018) (units unknown) (unknown) (unknown) (no date) (unknown) (unknown) Neut # (Auto) (7473-0047) /uL (units unknown) (unknown) (unknown) (no date) (unknown) (unknown) Neut # (Auto) 2300 (1491-1189) /uL (units unknown) (unknown) (unknown) (no date) [...] date) (unknown) (unknown) Christi Johnson , DNP, PROGRAM CONSULTANT [Primary Care Provider] (units unknown) (unknown) (unknown) [...] a primary care provider please contact the [facility] (units unknown) (unknown) (unknown) (no date) [...] (unknown) (unknown) (no date) (unknown) (unknown) : [id number] (units unknown) (unknown) (unknown) (no date) (unknown) [...] (unknown) (no date) (unknown) (unknown) : 1995 Acct:[id number] (units unknown) (unknown) (unknown) (no date) (unknown) [...] unknown) (unknown) (unknown) (no date) (unknown) (unknown) [address] [address] (units unknown) (unknown) (unknown) (no date) (unknown) [...] (no date) (unknown) (unknown) Lymph # (Auto) (7722-5391) /uL (units unknown) (unknown) (unknown) (no date) (unknown) (unknown) Lymph # (Auto) 2200 (1526-6471) /uL (units unknown) (unknown) (unknown) (no date) [...] unknown) (unknown) (unknown) (no date) (unknown) (unknown) [place] # (Auto) (0-900 ) /uL (units unknown) (unknown) (unknown) (no date) (unknown) (unknown) [place] # (Auto) 500 (0-900) /uL (units unknown) (unknown) (unknown) (no date) (unknown) (unknown) [place] % (Auto) (3-14) % (units unknown) (unknown) (unknown) (no date) (unknown) (unknown) [place] % (Auto) 9.4 (3-14) % (units unknown) [...] (no date) (unknown) (unknown) Neut # (Auto) (1270-2639) /uL (units unknown) (unknown) (unknown) (no date) (unknown) (unknown) Neut # (Auto) 2300 (5970-9138) /uL (units unknown) (unknown) (unknown) (no date) [...] (no date) (unknown) (unknown) Resource line at [phone]. They will ask some questions about your [...] date) (unknown) (unknown) Christi Johnson , DNP, PROGRAM CONSULTANT [Primary Care Provider] (units unknown) (unknown) (unknown) [...] facility 2022-11-15 00:00 Smokes tobacco daily (finding) [facility] 2022-11-21 00:00 Ex-smoker (finding) [facility] ital Vital Signs date measurement value units [...]
--- NOTE | 2023-01-16 18:32 | ED Physician Documentation ---
PD HPI HEAD INJURY - Stated complaint Stated Complaint: HEAD INJURY/FAINTING - Chief complaint Chief Complaint: Trauma Hd/Nk - History obtained from History obtained from: Patient - History of Present Illness Mechanism of head injury: Fell Where head injury occurred: Home - Additional information Additional information: 27-year-old female presents with a right forehead/scalp laceration. The patient had a syncopal episode at home, she does have a history of syncopal episodes and this is not abnormal for her. She had no seizure-like activity today, otherwise was feeling well, no change in mentation after the fall. She did lose consciousness for a minute or so but is back to baseline now. She sustained a laceration of the head and no other injuries. She is up-to-date on her tetanus. 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: Hysterectomy, Oophrectomy - Present Medications Home Medications: Ambulatory Orders Medication Instructions Recorded Confirmed Diazepam [Valium] 10 mg PO QID 12/30/20 11/03/22 Sertraline HCl 100 mg PO DAILY 12/30/20 11/03/22 QUEtiapine [SEROquel] 25 mg PO DAILY 02/27/21 11/03/22 lamoTRIgine [LaMICtal] 200 mg PO HS 02/27/21 11/03/22 Omeprazole 40 mg PO DAILY #30 cap 05/21/22 11/03/22 Metoclopramide [Reglan] 10 mg PO [facility] 11/03/22 11/03/22 Oxycodone HCl 10 mg PO TID PRN 11/03/22 11/03/22 Sucralfate [Carafate] 1 tablet PO [facility] 11/03/22 11/03/22 Trazodone HCl 100 mg ORAL HS 11/03/22 11/03/22 Oxycodone HCl/Acetaminophen 1 - 2 each PO Q6H PRN #14 tablet 12/22/22 [Percocet 5-325 mg Tablet] Prochlorperazine Maleate 10 mg PO Q6H PRN #20 tab 12/22/22 [Compazine] Ciprofloxacin HCl 1 tablet PO BID 10 Days #20 tablet 01/01/23 Ondansetron Odt [Zofran Odt] 4 mg TL Q6H PRN #10 tablet 01/01/23 Oxycodone HCl/Acetaminophen 1 each PO Q4H PRN #10 tablet 01/01/23 [Percocet 10-325 mg Tablet] - Allergies Allergies/Adverse Reactions: Allergies Allergy/AdvReac Type Severity Reaction Status Date / Time adhesive Allergy Rash Verified 01/16/23 17:39 Cephalosporins Allergy Hives Verified 01/16/23 17:39 Iodinated Contrast Media Allergy Anaphylaxis Verified 01/16/23 17:39 latex Allergy Rash Verified 01/16/23 17:39 lidocaine Allergy Unknown Verified 01/16/23 17:39 metoclopramide [From Reglan] Allergy Anaphylaxis Verified 01/16/23 17:39 Penicillins Allergy Hives Verified 01/16/23 17:39 prochlorperazine Allergy Anaphylaxis Verified 01/16/23 17:39 [From Compazine] all antibiotic except Allergy Anaphylaxis Uncoded 01/16/23 17:39 levaquin - Social History Does the pt smoke?: No Smoking Status: Never smoker Does the pt drink ETOH?: No Does the pt have substance abuse?: No - Immunizations Immunizations are current?: Yes PD ED PE NORMAL - Vitals Vital signs reviewed: Yes - General General: Alert and oriented X 3, No acute distress, Well developed/nourished - HEENT HEENT: PERRL, EOMI, Ears normal, Other (3 cmLaceration right scalp forehead hairline) - Neck Neck: Supple, no meningeal sign, No bony TTP, C-Spine cleared by NEXUS criteria - Cardiac Cardiac: RRR, No murmur - Respiratory Respiratory: No respiratory distress, Clear bilaterally - Neuro Neuro: Alert and oriented X 3, criminology teacher 2-12 intact, No motor deficit, No sensory deficit, Normal speech Eye Opening: Spontaneous Motor: Obeys Commands Verbal: Oriented GCS Score: 15 - Psych Psych: Normal mood, Normal affect Results - Vitals Vitals: Vital Signs - 24 hr 01/16/23 17:39 Temperature 36.2 C L Heart Rate 90 Respiratory 16 Rate Blood Pressure 135/52 H O2 Saturation 98 Oxygen O2 Source Room air Procedures - Laceration (location) Scalp right Anterior Length in cm: 3 Wound type: Linear Anesthesia: Lidocaine 1% with epi Wound preparation: Hibiclens, Irrigated copiously NS Skin layer closure: [place] (4) Other: Patient tolerated well, Tetanus UTD PD Medical Decision Making - ED course Complexity details: d/w patient ED course: 27-year-old female with a history of syncopal episodes presents after syncopal episode at home which is typical of her prior, she did sustain a head laceration during the fall and that is what she is here for today. She has not had any neurologic changes, no confusion or prolonged alteration of mental status, no vomiting. She feels back to baseline at this time. She does have a 3 cm laceration on the right side of the scalp at the hairline. I gave the patient the option to stitch or staple and patient would like to have yana. This site was cleaned thoroughly as described above, anesthetized locally as patient does not have an allergy to subcutaneous lidocaine, and it was closed with 4 yana. These can be removed via her primary care office or walk-in clinic in 10 to 14 days. Return precautions reviewed if any new or worsening symptoms. Departure - Departure Disposition: 01 Home, Self Care Clinical Impression: Scalp laceration Qualifiers: Encounter type: initial encounter Qualified Code(s): S01.01XA - Laceration without foreign body of scalp, initial encounter Condition: Good Instructions: ED Laceration Scalp Stitch Or Stap Comments: Please see your primary doctor in 10 to 14 days for staple removal. You can use a cool compress to this area to help with pain and swelling and Tylenol or ibuprofen as tolerated.Please return if you have any neurologic changes.
[2023-01-16] MEDS ORDERED: LIDOCAINE 1%-EPI 1:100000 20 ML MDV SUBQ STA (18:37)
== END 2023-01-16 19:11 | disposition home or self-care (01) ==
LOC: ED 17:33
DX: S01.01XA Laceration without foreign body of scalp, initial encounter (principal); W19.XXXA Unspecified fall, initial encounter; Y93.89 Activity, other specified; Y92.009 Unspecified place in unspecified non-institutional (private) residence as the place of occurrence of the external cause; R55 Syncope and collapse
CPT/HCPCS: 12002; 99282

== ENCOUNTER 2023-02-23 13:37 | Emergency (ER) | payer MEDICAID ==
[2023-02-23 14:20] LABS: BASOPHILS % (AUTO) 0.2 %; HCT - HEMATOCRIT 39.3 % (37.0-47.0); HGB - HEMOGLOBIN 13.5 g/dL (12.0-16.0); LYMPHOCYTES # (AUTO) 2.4 10^3/uL (1.5-3.5); LYMPHOCYTES % (AUTO) 39.6 %; MEAN CORPUSCULAR HEMOGLOBIN 31.3 pg (27.0-31.0); MEAN CORPUSCULAR HGB CONC 34.4 g/dL (32.0-36.0); MEAN CORPUSCULAR VOLUME 91.2 fL (81.0-99.0); MONOCYTES # (AUTO) 0.4 10^3/uL (0.0-1.0); MONOCYTES % (AUTO) 6.5 %; NEUTROPHILS # (AUTO) 3.2 10^3/uL (1.5-6.6); NEUTROPHILS % (AUTO) 53.5 %; PLT - PLATELET COUNT 221 10^3/uL (130-450); RED BLOOD COUNT 4.31 10^6/uL (4.20-5.40); RED CELL DISTRIBUTION WIDTH 11.9 % (12.0-15.0)
[2023-02-23 14:37] LABS: ALBUMIN 4.5 g/dL (3.2-5.5); BILIRUBIN,TOTAL 0.5 mg/dL (0.2-1.0); CALCIUM 9.4 mg/dL (8.5-10.3); CREATININE 0.9 mg/dL (0.6-1.3); POTASSIUM 4.1 mmol/L (3.5-4.5); TOTAL PROTEIN 6.7 g/dL (6.4-8.9)
[2023-02-23 14:47] LABS: BILIRUBIN,URINE NEGATIVE (NEGATIVE); GLUCOSE, URINE (UA) NEGATIVE (NEGATIVE); KETONES,URINE (UA) NEGATIVE (NEGATIVE); LEUKOCYTE ESTERASE, URINE NEGATIVE (NEGATIVE); NITRITE,URINE NEGATIVE (NEGATIVE); OCCULT BLOOD,URINE LARGE (NEGATIVE); PROTEIN,URINE 30 mg/dL (NEGATIVE); UROBILINOGEN,URINE 0.2 (NORMAL) E.U./dL (NORMAL)
--- NOTE | 2023-02-23 14:48 | ED Physician Documentation ---
PD HPI FEMALE - Stated complaint Stated Complaint: FEMALE - Chief complaint Chief Complaint: Abd Pain - History obtained from History obtained from: Patient - History of Present Illness Timing - onset: Last night, Yesterday Timing - duration: Days (1) Timing - details: Abrupt onset, Still present Associated symptoms: Abdominal pain, Vaginal bleeding. 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 Mostly helped.) Review of Systems Constitutional: denies: Fever, Chills Cardiac: denies: Chest pain / pressure GI: reports: Abdominal Pain (left lower). denies: Vomiting, Diarrhea : reports: Vaginal bleeding (she states she had vag bleeding using a pad every 1-2 hours overnight and earlier this morning. s/p hysterectomy with left ovary still in place.). 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: Ovarian cysts : Kidney stones Psych: Post traumatic stress disorder - Past Surgical History Past Surgical History: Yes General: Cholecystectomy, Appendectomy /BRANCH MANAGER: Hysterectomy, Oophrectomy - Present Medications Home Medications: Ambulatory Orders Medication Instructions Recorded Confirmed Diazepam [Valium] 10 mg PO QID 12/30/20 11/03/22 Sertraline HCl 100 mg PO DAILY 12/30/20 11/03/22 QUEtiapine [SEROquel] 25 mg PO DAILY 02/27/21 11/03/22 lamoTRIgine [LaMICtal] 200 mg PO HS 02/27/21 11/03/22 Omeprazole 40 mg PO DAILY #30 cap 05/21/22 11/03/22 Metoclopramide [Reglan] 10 mg PO [facility] 11/03/22 11/03/22 Oxycodone HCl 10 mg PO TID PRN 11/03/22 11/03/22 Sucralfate [Carafate] 1 tablet PO [facility] 11/03/22 11/03/22 Trazodone HCl 100 mg ORAL HS 11/03/22 11/03/22 Oxycodone HCl/Acetaminophen 1 - 2 each PO Q6H PRN #14 tablet 12/22/22 [Percocet 5-325 mg Tablet] Prochlorperazine Maleate 10 mg PO Q6H PRN #20 tab 12/22/22 [Compazine] Ciprofloxacin HCl 1 tablet PO BID 10 Days #20 tablet 01/01/23 Ondansetron Odt [Zofran Odt] 4 mg TL Q6H PRN #10 tablet 01/01/23 Oxycodone HCl/Acetaminophen 1 each PO Q4H PRN #10 tablet 01/01/23 [Percocet 10-325 mg Tablet] Fluconazole [Diflucan] 150 mg PO Q3D #2 tablet 02/23/23 Meloxicam [Mobic] 7.5 mg PO BID 10 Days #20 tablet 02/23/23 Oxycodone HCl/Acetaminophen 1 each PO Q6H PRN #15 tablet 02/23/23 [Percocet 5-325 mg Tablet] metroNIDAZOLE [Flagyl] 500 mg PO BID 7 Days #14 tablet 02/24/23 - Allergies Allergies/Adverse Reactions: Allergies Allergy/AdvReac Type Severity Reaction Status Date / Time adhesive Allergy Rash Verified 01/16/23 17:39 Cephalosporins Allergy Hives Verified 01/16/23 17:39 Iodinated Contrast Media Allergy Anaphylaxis Verified 01/16/23 17:39 latex Allergy Rash Verified 01/16/23 17:39 lidocaine Allergy Unknown Verified 01/16/23 17:39 Penicillins Allergy Hives Verified 01/16/23 17:39 all antibiotic except Allergy Anaphylaxis Uncoded 01/16/23 17:39 levaquin - Social History Does the pt smoke?: No Smoking Status: Never smoker Does the pt drink ETOH?: No Does the pt have substance abuse?: No - Immunizations Immunizations are current?: Yes PD ED PE NORMAL - Vitals Vital signs reviewed: Yes - General General: Alert and oriented X 3, Well developed/nourished, Other (appears in pain holding left lower abd. ) - Cardiac Cardiac: RRR, No murmur - Respiratory Respiratory: Clear bilaterally - Abdomen Abdomen: Normal bowel sounds, Soft, Non distended, Other (tender left lower abd/suprapubic area with local guaridng. No percussion nor rebond tendernes. 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 No m alodor per se. No blood. No lesions. Mild vag wall redness left side. s/p hysterectomy with vaginal cuff tissue area healed well. ) - Rectal Rectal: Other (not formal rectal per se, but during pelvic, noted that there were no hemorrhoids visible. ) - Derm Derm: Normal color Results - Vitals Vitals: Vital Signs - 24 hr 02/23/23 02/23/23 02/23/23 13:50 15:52 17:00 Temperature 36.7 C Heart Rate 66 57 L 57 L Respiratory 20 16 16 Rate Blood Pressure 152/73 H 116/57 L 116/57 L O2 Saturation 98 100 100 Oxygen O2 Source Room air - Labs Labs: Laboratory Tests 02/23/23 02/23/23 02/23/23 13:55 14:17 14:17 WBC 6.0 RBC 4.31 Hgb 13.5 Hct 39.3 MCV 91.2 MCH 31.3 H MCHC 34.4 RDW 11.9 L Plt Count 221 MPV 10.0 Neut # (Auto) 3.2 Lymph # (Auto) 2.4 Nye # (Auto) 0.4 Eos # (Auto) 0.0 Baso # (Auto) 0.0 Absolute Nucleated RBC 0.00 Nucleated RBC % 0.0 Sodium 137 Potassium 4.1 Chloride 106 Carbon Dioxide 27 Anion Gap 4.0 L BUN 12 Creatinine 0.9 Estimated GFR (MDRD) 74 L Glucose 86 Calcium 9.4 Total Bilirubin 0.5 AST 9 L ALT 9 L Alkaline Phosphatase 38 L Total Protein 6.7 Albumin 4.5 Globulin 2.2 Albumin/Globulin Ratio 2.0 Lipase 18 Urine Color RED/BLOODY Urine Clarity CLOUDY Urine pH 6.0 Ur Specific Villard >=1.030 H Urine Protein 30 H Urine Glucose (UA) NEGATIVE Urine Ketones NEGATIVE Urine Occult Blood LARGE H Urine Nitrite NEGATIVE Urine Bilirubin NEGATIVE Urine Urobilinogen 0.2 (NORMAL) Ur Leukocyte Esterase NEGATIVE Urine RBC TNTC H Urine WBC 0-3 Ur Squamous Epith Cells MOD Squamous H Urine Bacteria Few Ur Microscopic Review INDICATED Urine Culture Comments NOT INDICATED C. glabrata (PCR) C. krusei (PCR) Meredith species DNA T. vaginalis (PCR) Bact Vaginosis (PCR) 02/23/23 17:25 WBC RBC Hgb Hct MCV MCH MCHC RDW Plt Count MPV Neut # (Auto) Lymph # (Auto) Nye # (Auto) Eos # (Auto) Baso # (Auto) Absolute Nucleated RBC Nucleated RBC % Sodium Potassium Chloride Carbon Dioxide Anion Gap BUN Creatinine Estimated GFR (MDRD) Glucose Calcium Total Bilirubin AST ALT Alkaline Phosphatase Total Protein Albumin Globulin Albumin/Globulin Ratio Lipase Urine Color Urine Clarity Urine pH Ur Specific Villard Urine Protein Urine Glucose (UA) Urine Ketones Urine Occult Blood Urine Nitrite Urine Bilirubin Urine Urobilinogen Ur Leukocyte Esterase Urine RBC Urine WBC Ur Squamous Epith Cells Urine Bacteria Ur Microscopic Review Urine Culture Comments C. glabrata (PCR) NEGATIVE C. krusei (PCR) NEGATIVE Meredith species DNA NEGATIVE T. vaginalis (PCR) NEGATIVE Bact Vaginosis (PCR) POSITIVE A - Rads (name of study) pelvic US Relevant Findings:: Other (US Tech: 2 cm left ovarian cyst with good blood flow to ovary and no free fluid. ) PD Medical Decision Making - ED course Complexity details: reviewed results (2 cm cyst left ovary. No free fluid. No torsion. Pelvic without vaginal blood. vaginal cuff tissue from hyst appears healed/intact. Not clear the cause of vaginal bleeding earlier. Denies GI bleeding. ), considered differential (she describes left lower abd/pelvic cramping pains, moderate vaginal bleeding. s/p hysterectomy with left ovary still in place. Has had cysts hurt previusly.), d/w patient Drug Therapy Requiring Monitoring for Toxicity: appeared severe pain so IV started and given meds that route. Toradol and Dilaudid given with reasonable but not complete improvement in pain. Did get a repeat dose of Dilaudid at about 2-3 hour interval (took awhile toget ultrasound and prelim report). ED course: there was blood in urine. None invaginal vault. Presume the blood at home was from urination and not vaginal. She states it was not rectal/with bowels. No hemorrhoids noted during pelvic exam. Had some vaginal discharge, appearing yeast like. Got BV screen. Will treat yeast for now. Subseqntly as I am charting after time of discharge, the BV test comes back showing positive BV. I wll add Flagyl to meds. It was after pharmacy hours that she was discharged, so presume will get xripts on Saturday. Will contact pt to update. Departure - Departure Disposition: Home, Self Care Clinical Impression: Lower abdominal pain, Vaginal bleeding, Vaginitis Condition: Stable Record reviewed to determine appropriate education?: Yes Instructions: ED Abdominal Pain Female Non-Specific Abdominal Pain Prescriptions: Fluconazole [Diflucan] 150 mg PO Q3D #2 tablet Meloxicam [Mobic] 7.5 mg PO BID 10 Days #20 tablet Oxycodone HCl/Acetaminophen [Percocet 5-325 mg Tablet] 1 each PO Q6H PRN #15 tablet PRN Reason: pain Comments: Your ultrasound showed a 2 cm cyst in the left ovary. There is good blood flow to the ovary. No signs of rupture or free fluid in the pelvis. On pelvic exam, there is a discharge in the vaginal vault consistent with likely yeast vaginitis. There is a small area that appears irritated or inflamed in the wall of the vaginal vault. No blood is seen in the vaginal vault. It would appear that the bleeding you had has stopped at this point. We can use an antifungal tablet every 3 days for 2 or 3 doses. We did do a culture swab of the vaginal vault. If there is any signs of bacterial infection, we will call you if we need to add medication. For now cause of your pain is unclear. Presume some inflammation of the ovary related to the cyst. I would suggest doing some anti-inflammatory such as meloxicam or if you have naproxen or ibuprofen at home. To that add Tylenol every 4-6 hours as needed for pain or oxycodone if needed for worse pain. I sent prescriptions to your [facility] pharmacy. Recheck if not improved well over the next few days return sooner if worsening despite medications or other symptoms develop. My narcotic instructions I am prescribing a short course of narcotic pain medication for you. These are potentially dangerous and addictive medications that should be used carefully. These medications may constipate you. Take an [id number]-fhsjyzu stool softener such as docusate twice daily with plenty of water while taking these medications. If you go 24 hours without a bowel movement, take [id number]-[id number] MiraLAX, per package instructions. Do not drink or drive while taking these medications. If you received narcotic or sedating medications while in the emergency department do not drive for 24 hours. Store this medication in a safe, secure place and out of reach of children. It is a violation of federal law to give or sell this medication to another person or to use in a manner other than prescribed. The ED will not refill narcotic prescriptions, including prescriptions lost or stolen. You can dispose of unwanted medications at the [facility]'s office or at several pharmacies such as [facility]. Forms: PCP List Discharge Date/Time: 02/23/23 18:38
[2023-02-23 14:51] LABS: CLARITY,URINE CLOUDY (CLEAR)
[2023-02-23 14:52] LABS: BACTERIA,URINE Few /HPF (None Seen); RBC,URINE TNTC /HPF (0-5); SQUAMOUS EPITHELIAL CELL,UR MOD Squamous (<= Few); WBC,URINE 0-3 /HPF (0-5)
[2023-02-23] MEDS ORDERED: KETOROLAC 15 MG/ML VIAL IVP STA (15:08)
[2023-02-23] MEDS ORDERED: HYDROmorphone 1 MG/ML CARPUJECT IVP STA ×2 (15:08→17:27)
[2023-02-23] MEDS ORDERED: SODIUM CHLORIDE 0.9% 1,000 ML IV STA (15:08)
[2023-02-23] MEDS ORDERED: ONDANSETRON 4 MG/2 ML VIAL IVP STA (15:08)
[2023-02-23 16:14] VITALS: BP 116/57
[2023-02-23] MEDS ORDERED: FLUCONAZOLE 100 MG TABLET PO STA (17:28)
[2023-02-23] MEDS ORDERED: oxyCODONE/ACET 5/325 Prepack 4 PO STA (17:29)
--- NOTE | 2023-02-23 17:30 | Ultrasound Report ---
PROCEDURE: Pelvic w/Doppler Complete INDICATIONS: left pelvic pain/ vag bleed; s/p partial hyst TECHNIQUE: Transabdominal ultrasound pelvis was obtained COMPARISON: None. FINDINGS: Uterus is surgically absent. Right ovary is surgically absent. There measures 4.7 x 2.1 x 2.9 cm, and contains a simple 2 cm right ovarian cyst. There are less than 12 follicles present. No adnexal mass. Appropriate vascularity not ed. IMPRESSION: Appropriate left ovarian vascularity without evidence of torsion. Hysterectomy and right oophorectomy Reviewed by: Vinicio Roche MD on 02/23/2023 4:29 PM CHIKA Approved by: Vinicio Roche MD on 02/23/2023 4:29 PM AKJESSICA Station ID: [id number]
[2023-02-23 19:25] LABS: BACTERIAL VAGINOSIS DNA POSITIVE (NEGATIVE); CANDIDA GLABRATA DNA NEGATIVE (NEGATIVE); CANDIDA GROUP DNA NEGATIVE (NEGATIVE); CANDIDA KRUSEI DNA NEGATIVE (NEGATIVE); TRICHOMONAS VAGINALIS DNA NEGATIVE (NEGATIVE)
== END 2023-02-23 18:38 | disposition home or self-care (01) ==
LOC: ED 13:37
DX: N93.9 Abnormal uterine and vaginal bleeding, unspecified (principal); N76.0 Acute vaginitis
CPT/HCPCS: 36415; 76856; 80053; 81001; 81514; 83690; 85025; 93975; 96374; 96376; 99284; A9270; J1170; 81003; 87086

== ENCOUNTER 2023-05-05 15:32 | Emergency (ER) | payer MEDICAID ==
[2023-05-05] MEDS ORDERED: SODIUM CHLORIDE 0.9% 1,000 ML IV STA (15:59)
[2023-05-05] MEDS ORDERED: ONDANSETRON 4 MG/2 ML VIAL IVP STA (15:59)
[2023-05-05] MEDS ORDERED: PANTOPRAZOLE 40 MG VIAL IVP STA (16:00)
[2023-05-05] MEDS ORDERED: SUCRALFATE 1 GM/10 ML UDC PO STA (16:00)
[2023-05-05 16:03] VITALS: BP 127/58; O2SAT 100
--- NOTE | 2023-05-05 16:04 | ED Physician Documentation ---
History of Present Illness - Stated complaint Stated Complaint: ABD PX/VOMITING BLOOD - Chief complaint Chief Complaint: Abd Pain - Additonal information Additional information: 28-year-old female presents emergency department for evaluation of cute onset left upper quadrant abdominal pain, vomiting and Brianda emesis. She does report a history of erosive gastritis as well as stomach lesions/ulcerations. Was previously on Carafate and Protonix. Patient states that she has not been able to see GI in quite some time as they left the practice and she was not assigned to a new one. Denies melena or hematochezia. In review of the pharmacy refills, I do not see that the patient is currently being prescribed these medications. Review of Systems Constitutional: denies: Fever, Chills Throat: reports: Reviewed and negative Cardiac: reports: Reviewed and negative Respiratory: reports: Reviewed and negative GI: reports: Abdominal Pain, Nausea, Vomiting, Hematemesis. 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: Ovarian cysts : Kidney stones Psych: Post traumatic stress disorder - Past Surgical History Past Surgical History: Yes General: Cholecystectomy, Appendectomy /BLADDER TIER: Hysterectomy, Oophrectomy - Present Medications Home Medications: Ambulatory Orders Medication Instructions Recorded Confirmed Sertraline HCl 100 mg PO DAILY 12/30/20 11/03/22 diazePAM [Valium] 10 mg PO QID 12/30/20 11/03/22 QUEtiapine [SEROquel] 25 mg PO DAILY 02/27/21 11/03/22 lamoTRIgine [LaMICtal] 200 mg PO HS 02/27/21 11/03/22 Omeprazole 40 mg PO DAILY #30 cap 05/21/22 11/03/22 Metoclopramide [Reglan] 10 mg PO [facility] 11/03/22 11/03/22 Oxycodone HCl 10 mg PO TID PRN 11/03/22 11/03/22 Sucralfate [Carafate] 1 tablet PO [facility] 11/03/22 11/03/22 Trazodone HCl 100 mg ORAL HS 11/03/22 11/03/22 Oxycodone HCl/Acetaminophen 1 - 2 each PO Q6H PRN #14 tablet 05/27/23 [Percocet 5-325 mg Tablet] Prochlorperazine Maleate 10 mg PO Q6H PRN #20 tab 12/22/22 [Compazine] Ciprofloxacin HCl 1 tablet PO BID 10 Days #20 tablet 01/01/23 Ondansetron Odt [Zofran Odt] 4 mg TL Q6H PRN #10 tablet 01/01/23 Oxycodone HCl/Acetaminophen 1 each PO Q4H PRN #10 tablet 01/01/23 [Percocet 10-325 mg Tablet] Fluconazole [Diflucan] 150 mg PO Q3D #2 tablet 02/23/23 Meloxicam [Mobic] 7.5 mg PO BID 10 Days #20 tablet 02/23/23 Oxycodone HCl/Acetaminophen 1 each PO Q6H PRN #15 tablet 02/23/23 [Percocet 5-325 mg Tablet] metroNIDAZOLE [Flagyl] 500 mg PO BID 7 Days #14 tablet 02/24/23 Ondansetron Odt [Zofran] 4 mg TL Q6H PRN #10 tablet 05/05/23 Pantoprazole [Protonix] 40 mg PO DAILY #30 tablet 05/05/23 Sucralfate [Carafate] 1 gm PO DAILY PM #300 ml 05/05/23 - Allergies Allergies/Adverse Reactions: Allergies Allergy/AdvReac Type Severity Reaction Status Date / Time adhesive Allergy Rash Verified 05/05/23 15:46 Cephalosporins Allergy Hives Verified 05/05/23 15:46 Iodinated Contrast Media Allergy Anaphylaxis Verified 05/05/23 15:46 latex Allergy Rash Verified 05/05/23 15:46 lidocaine Allergy Unknown Verified 05/05/23 15:46 Penicillins Allergy Hives Verified 05/05/23 15:46 all antibiotic except Allergy Anaphylaxis Uncoded 01/16/23 17:39 levaquin - Social History Does the pt smoke?: No Smoking Status: Never smoker Does the pt drink ETOH?: No Does the pt have substance abuse?: No - Immunizations Immunizations are current?: Yes PD ED PE NORMAL - General General: Alert and oriented X 3, No acute distress - Cardiac Cardiac: RRR - Respiratory Respiratory: No respiratory distress - Abdomen Abdomen: Normal bowel sounds, Soft. No: Non tender (Mild epigastric and left upper quadrant abdominal tenderness without guarding or rebound.) - Back Back: No CVA TTP - Derm Derm: Normal color, Warm and dry, No rash - Extremities Extremities: No deformity - Neuro Neuro: Alert and oriented X 3 Eye Opening: Spontaneous Motor: Obeys Commands Verbal: Oriented GCS Score: 15 Results - Vitals Vitals: Vital Signs - 24 hr 05/05/23 05/05/23 15:46 15:57 Temperature 37 C 36.9 C Heart Rate 71 71 Respiratory 18 16 Rate Blood Pressure 137/80 H 127/58 L O2 Saturation 99 100 Oxygen O2 Source Room air - Labs Labs: Laboratory Tests 05/05/23 05/05/23 15:59 15:59 WBC 6.4 RBC 4.28 Hgb 13.5 Hct 39.0 MCV 91.1 MCH 31.5 H MCHC 34.6 RDW 12.1 Plt Count 257 MPV 9.5 Neut # (Auto) 3.4 Lymph # (Auto) 2.4 Sherman # (Auto) 0.6 Eos # (Auto) 0.0 Baso # (Auto) 0.0 Absolute Nucleated RBC 0.00 Nucleated RBC % 0.0 Sodium 137 Potassium 3.9 Chloride 104 Carbon Dioxide 27 Anion Gap 6.0 BUN 14 Creatinine 0.8 Estimated GFR (MDRD) 84 L Glucose 87 Calcium 9.4 Total Bilirubin 0.4 AST 9 L ALT 8 L Alkaline Phosphatase 50 Total Protein 6.8 Albumin 4.5 Globulin 2.3 Albumin/Globulin Ratio 2.0 Lipase 27 PD Medical Decision Making - ED course Complexity details: reviewed results, re-evaluated patient, d/w patient ED course: 28-year-old female presents emergency department for evaluation of a burning epigastric and left upper quadrant abdominal pain that began just a few hours prior to arrival. She does have a history of gastritis and erosive esophagitis. Was historically on Protonix and Carafate but seemingly has not had them filled for several months. She does vape daily. On presentation she had epigastric tenderness without guarding or rebound. She had reported hematemesis and as such as CBC and electrolytes were obtained which showed no worrisome anemia or electrolyte derangement. Given her history I do not feel that CT imaging would benefit her today as it is unlikely be useful in the diagnosis of gastritis. Clinically she does not present as having symptoms consistent with a perforation. We achieved symptom control here in the emergency department by administering 40 mg Protonix IV, single dose of Zofran, Carafate and then some Compazine. On reevaluation she is feeling better though the pain is not fully resolved. I feel patient is safe for discharge home. She will follow closely with her PCP. Likely would benefit from reevaluation with GI for consideration of repeat EGD or evaluation for gastroparesis which she indicated is something they were considering before she was lost to follow-up. Usual emergent return precautions for worsening symptoms was discussed. Departure - Departure Disposition: Home, Self Care Clinical Impression: Epigastric abdominal pain Gastritis Qualifiers: Gastritis type: unspecified gastritis Chronicity: acute Gastritis bleeding: presence of bleeding unspecified Qualified Code(s): K29.00 - Acute gastritis without bleeding Condition: Stable Record reviewed to determine appropriate education?: Yes Prescriptions: Sucralfate [Carafate] 1 gm PO DAILY PM #300 ml Pantoprazole [Protonix] 40 mg PO DAILY #30 tablet Ondansetron Odt [Zofran] 4 mg TL Q6H PRN #10 tablet PRN Reason: Nausea / Vomiting Comments: Eileen you are seen today for pain in your upper abdomen as well as vomiting some blood. You do have a history of gastritis and esophageal erosions. In looking at your [facility] prescription history it does not appear that you been taking the Protonix or Carafate. I suspect you have a reactivation of your gastritis. Over the next 24 to 48 hours clear liquids only. Oconnell, broth, clear juice or Pedialyte. Please fill the prescription for the Protonix to begin taking each day in the morning. You are to take the Carafate at night before you go to bed. You should avoid taking any other medications 3 hours before or after taking the Carafate because it will limit their absorption. Please follow closely with your primary care provider. You should be referred or followed up with GI. It may be appropriate to consider repeat endoscopy and/or further evaluation for the possibility of gastroparesis. Forms: PCP List
--- OUTSIDE RECORDS SUMMARY | 2023-05-05 16:10 | EXTERNAL MEDICAL SUMMARY RPT | Continuity of Care Document ---
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 (no reactio n) Mild 2023-02-25 15:34:54 [facility] (no reactio n) Mild 2023-02-25 15:34:54 [facility] (no reactio n) (no severity) 2023-02-25 15:34:54 [facility] (no reactio n) (no severity) 2023-02-25 15:34:54 [facility] (no reactio n) (no severity) 2023-02-25 15:34:54 [facility] (no reactio n) Mild 2023-02-25 15:34:54 [facility] (no reactio n) Mild 2023-02-25 15:34:54 [facility] (no reactio n) Mild 2023-02-25 15:34:54 [facility] (no reactio n) (no severity) 2023-02-25 15:34:54 [facility] (no reactio n) (no severity) 2023-02-25 15:34:54 [facility] (no reactio n) Severe 2023-02-25 15:34:54 [facility] (no reactio n) Mild 2023-02-25 15:34:54 [facility] (no reactio n) Mild Medications date description facility 2023-02-25 00:00 Ondansetron [facility] 2023-02-25 00:00 Levofloxacin [facility] Problems date description facility 2023-02-25 00:00 Pyelonephritis [facility] Procedures date description facility 2023-02-25 00:00 XR KUB [facility] Results/Labs test date facility value unit notes Social History date description facility 2023-02-25 00:00 Ex-smoker (finding) [facility] ital Vital Signs date measurement value units 2023-02-25 00:00 BMI 34.0 kg/m2 2023-02-25 00:00 BP_diastolic 59 mmHg 2023-02-25 00:00 BP_systolic 114 mmHg 2023-02-25 00:00 heart_rate 67 /min 2023-02-25 00:00 height_metric 154.94 cm 2023-02-25 00:00 height_standard 61 in 2023-02-25 00:00 o2_saturation 98 % 2023-02-25 00:00 respiration_rate 16 /min 2023-02-25 00:00 temperature_metric 36.5 C 2023-02-25 00:00 temperature_standard 97.7 F 2023-02-25 00:00 weight_metric 81.64 kg 2023-02-25 00:00 weight_standard 179.99 lb
[2023-05-05 16:13] LABS: BASOPHILS % (AUTO) 0.5 %; HGB - HEMOGLOBIN 13.5 g/dL (12.0-16.0); LYMPHOCYTES # (AUTO) 2.4 10^3/uL (1.5-3.5); LYMPHOCYTES % (AUTO) 36.7 %; MEAN CORPUSCULAR HEMOGLOBIN 31.5 pg (27.0-31.0); MEAN CORPUSCULAR HGB CONC 34.6 g/dL (32.0-36.0); MEAN CORPUSCULAR VOLUME 91.1 fL (81.0-99.0); MEAN PLATELET VOLUME 9.5 fL (7.9-10.8); MONOCYTES # (AUTO) 0.6 10^3/uL (0.0-1.0); MONOCYTES % (AUTO) 9.8 %; NEUTROPHILS # (AUTO) 3.4 10^3/uL (1.5-6.6); NEUTROPHILS % (AUTO) 52.7 %; PLT - PLATELET COUNT 257 10^3/uL (130-450); RED BLOOD COUNT 4.28 10^6/uL (4.20-5.40); RED CELL DISTRIBUTION WIDTH 12.1 % (12.0-15.0); WHITE BLOOD COUNT 6.4 x10^3/uL (4.8-10.8)
[2023-05-05 16:27] LABS: ALBUMIN 4.5 g/dL (3.2-5.5); BILIRUBIN,TOTAL 0.4 mg/dL (0.2-1.0); CALCIUM 9.4 mg/dL (8.5-10.3); CREATININE 0.8 mg/dL (0.6-1.3); POTASSIUM 3.9 mmol/L (3.5-4.5); TOTAL PROTEIN 6.8 g/dL (6.4-8.9)
[2023-05-05] MEDS ORDERED: oxyCODONE 5 MG TABLET PO STA (16:37)
[2023-05-05] MEDS ORDERED: PROCHLORPERAZINE 10 MG/2 ML VIAL IVP STA (17:17)
== END 2023-05-05 18:08 | disposition home or self-care (01) ==
LOC: ED 15:32
DX: K29.00 Acute gastritis without bleeding (principal)
CPT/HCPCS: 36415; 80053; 83690; 85025; 96374; 96375; 99283; 99284; A9270

== ENCOUNTER 2023-05-17 15:04 | Emergency (ER) | payer MEDICAID ==
[2023-05-17 15:23] VITALS: BP 136/85; O2SAT 99
[2023-05-17] MEDS ORDERED: HYDROcod/ACETAM 5/325 MG TABLET PO STA (15:52)
--- NOTE | 2023-05-17 15:55 | ED Physician Documentation ---
PD HPI UPPER EXT INJURY - Stated complaint Stated Complaint: SHOULDER INJ - Chief complaint Chief Complaint: Trauma Ext - History obtained from History obtained from: Patient (She tripped over her shoe and fell down several stairs with an injury to the left shoulder. No other injuries. This happened just prior to arrival. No head or neck. 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: Ovarian cysts : Kidney stones Psych: Post traumatic stress disorder - Past Surgical History Past Surgical History: Yes General: Cholecystectomy, Appendectomy /SPORTS COMPLEX ATTENDANT: Hysterectomy, Oophrectomy - Present Medications Home Medications: Ambulatory Orders Medication Instructions Recorded Confirmed Sertraline HCl 100 mg PO DAILY 12/30/20 11/03/22 diazePAM [Valium] 10 mg PO QID 12/30/20 11/03/22 QUEtiapine [SEROquel] 25 mg PO DAILY 02/27/21 11/03/22 lamoTRIgine [LaMICtal] 200 mg PO HS 02/27/21 11/03/22 Omeprazole 40 mg PO DAILY #30 cap 05/21/22 11/03/22 Metoclopramide [Reglan] 10 mg PO [facility] 11/03/22 11/03/22 Oxycodone HCl 10 mg PO TID PRN 11/03/22 11/03/22 Sucralfate [Carafate] 1 tablet PO [facility] 11/03/22 11/03/22 Trazodone HCl 100 mg ORAL HS 11/03/22 11/03/22 Oxycodone HCl/Acetaminophen 1 - 2 each PO Q6H PRN #14 tablet 12/22/22 [Percocet 5-325 mg Tablet] Prochlorperazine Maleate 10 mg PO Q6H PRN #20 tab 12/22/22 [Compazine] Ciprofloxacin HCl 1 tablet PO BID 10 Days #20 tablet 01/01/23 Ondansetron Odt [Zofran Odt] 4 mg TL Q6H PRN #10 tablet 01/01/23 Oxycodone HCl/Acetaminophen 1 each PO Q4H PRN #10 tablet 01/01/23 [Percocet 10-325 mg Tablet] Fluconazole [Diflucan] 150 mg PO Q3D #2 tablet 02/23/23 Meloxicam [Mobic] 7.5 mg PO BID 10 Days #20 tablet 02/23/23 Oxycodone HCl/Acetaminophen 1 each PO Q6H PRN #15 tablet 02/23/23 [Percocet 5-325 mg Tablet] metroNIDAZOLE [Flagyl] 500 mg PO BID 7 Days #14 tablet 02/24/23 Ondansetron Odt [Zofran] 4 mg TL Q6H PRN #10 tablet 05/05/23 Pantoprazole [Protonix] 40 mg PO DAILY #30 tablet 05/05/23 Sucralfate [Carafate] 1 gm PO DAILY PM #300 ml 05/05/23 HYDROcod/ACETAM 5/325 [Severance 5/325] 1 - 2 tab PO Q6H PRN #15 tablet 05/17/23 - Allergies Allergies/Adverse Reactions: Allergies Allergy/AdvReac Type Severity Reaction Status Date / Time adhesive Allergy Rash Verified 05/17/23 15:21 Cephalosporins Allergy Hives Verified 05/17/23 15:21 Iodinated Contrast Media Allergy Anaphylaxis Verified 05/17/23 15:21 latex Allergy Rash Verified 05/17/23 15:21 lidocaine Allergy Unknown Verified 05/17/23 15:21 Penicillins Allergy Hives Verified 05/17/23 15:21 all antibiotic except Allergy Anaphylaxis Uncoded 05/17/23 15:21 levaquin - Social History Does the pt smoke?: No Smoking Status: Never smoker Does the pt drink ETOH?: No Does the pt have substance abuse?: No - Immunizations Immunizations are current?: Yes PD ED PE NORMAL - Vitals Vital signs reviewed: Yes - General General: Alert and oriented X 3, No acute distress - Neck Neck: Supple, no meningeal sign, No bony TTP - Extremities Extremities: Other (Tender over the left AC joint, internal/external rotation of the left shoulder is relatively painless, but abduction only up to about 30 degrees. No deformity. Elbow and hand on the left are nontender.) - Neuro Neuro: Alert and oriented X 3, Normal speech Results - Vitals Vitals: Vital Signs - 24 hr 05/17/23 15:19 Temperature 36.4 C L Heart Rate 93 Respiratory 20 Rate Blood Pressure 136/85 H O2 Saturation 99 Oxygen O2 Source Room air PD Medical Decision Making - ED course ED course: X-ray not showing any abnormality, given the exam. I suspect she has a low- grade AC separation. She declined a sling having one at home. Departure - Departure Disposition: 01 Home, Self Care Clinical Impression: Acromioclavicular joint separation Qualifiers: Encounter type: initial encounter Laterality: left Qualified Code(s): S43.102A - Unspecified dislocation of left acromioclavicular joint, initial encounter Condition: Good Record reviewed to determine appropriate education?: Yes Instructions: ED Sprain AC Joint Follow-Up: Orthopedic Care [Provider Group] - Within 1 week Prescriptions: HYDROcod/ACETAM 5/325 [Severance 5/325] 1 - 2 tab PO Q6H PRN #15 tablet PRN Reason: Pain Comments: X-ray looking okay, no dislocation. I suspect you have a low-grade AC separation, reasonable to follow-up with orthopedics and discuss physical therapy. Return for new or worsening symptoms. I sent your prescription electronically to [facility] in [place]. I am prescribing a short course of narcotic pain medication for you. These are potentially dangerous and addictive medications that should be used carefully. These medications may constipate you. Take an zlpp-dja-aepvvyr stool softener (docusate) twice daily with plenty of water while taking these medications. If you go 24 hours without a bowel movement, take [id number] miralax, per package instructions. Do not drink or drive while taking these medications. If you received narcotic or sedating medications while in the emergency department, do not drive for 24 hours. Store this medication in a safe, secure place and out of reach of children. It is a violation of federal law to give or sell this medication to another person or to use in a manner other than prescribed. The ED will not refill narcotic prescriptions, including prescriptions lost or stolen. To dispose of unwanted medications: 1. [facility] provides a drop box for medication in pill form only (no liquids) 8:00 am to 4:30 p.m. Saturday-Saturday in the lobby of the [facility], [address] [place] [address]. Empty pills into ziplock bag before disposal. Call [phone] for information. 2.[employer] is a free service available to all [facility] residents. Go to [email or web address] Note that many narcotic pain relievers also contain Tylenol/acetaminophen. P lease ensure that your total dose of acetaminophen from all sources does not exceed 3 g (3000 mg) per day. Forms: PCP List
--- NOTE | 2023-05-17 16:05 | XRAY Report ---
PROCEDURE: Shoulder 3 View LT INDICATIONS: trauma TECHNIQUE: 3 views of the shoulder were acquired. COMPARISON: Left shoulder x-ray 11/25/2022. FINDINGS: Bones: No fractures or dislocations. No suspicious bony lesions. Visualized ribs appear intact. Soft tissues: No suspicious soft tissue calcifications. The visualized lungs are within normal limi ts. IMPRESSION: No acute bony abnormality. Reviewed by: Barrera Stone MD on 05/17/2023 4:03 PM PDT Approved by: Barrera Stone MD on 05/17/2023 4:03 PM PDT Station ID: [id number]
== END 2023-05-17 16:23 | disposition home or self-care (01) ==
LOC: ED 15:04
DX: S43.102A Unspecified dislocation of left acromioclavicular joint, initial encounter (principal); W10.9XXA Fall (on) (from) unspecified stairs and steps, initial encounter; Z79.899 Other long term (current) drug therapy
CPT/HCPCS: 73030; 99283; A9270

== ENCOUNTER 2023-05-18 13:30 | Emergency (ER) | payer MEDICAID ==
--- NOTE | 2023-05-18 16:10 | ED Physician Documentation ---
History of Present Illness - Stated complaint Stated Complaint: REINJURY LFT SHOULDER AREA - Chief complaint Chief Complaint: Trauma Ext - History obtained from History obtained from: Patient - Additonal information Additional information: 28 yo F presents w/ left rib and left elbow pain. Patient was going up bleacher stairs when her son ran in front of her causing her to lose her balance and fall. She hit her left ribs and left elbow on a bleacher seat in the concrete stair. The patient states she fell yesterday as well while running in the house with platform shoes causing her to fall and she landed onto her left shoulder. She is still in the sling from her injury yesterday but states this was a new injury today. She has not attempted any treatment for this issue. She denies any prodromal symptoms prior to the fall, no dizziness weakness or confusion, states she is just "clumsy." She does have a history of seizure disorder the last seizure was over 5 months ago. 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: Ovarian cysts : Kidney stones Psych: Post traumatic stress disorder - Past Surgical History Past Surgical History: Yes General: Cholecystectomy, Appendectomy /PACKAGE LIFT OPERATOR: Hysterectomy, Oophrectomy - Present Medications Home Medications: Ambulatory Orders Medication Instructions Recorded Confirmed Sertraline HCl 100 mg PO DAILY 12/30/20 05/18/23 diazePAM [Valium] 10 mg PO TID 12/30/20 11/03/22 lamoTRIgine [LaMICtal] 200 mg PO HS 02/27/21 05/18/23 Trazodone HCl 100 mg ORAL HS 11/03/22 05/18/23 lamoTRIgine [LaMICtal] 100 mg PO DAILY 05/18/23 05/18/23 lamoTRIgine [Lamictal] 200 mg PO HS 05/18/23 05/18/23 - Allergies Allergies/Adverse Reactions: Allergies Allergy/AdvReac Type Severity Reaction Status Date / Time adhesive Allergy Rash Verified 05/18/23 14:00 Cephalosporins Allergy Hives Verified 05/18/23 14:00 Iodinated Contrast Media Allergy Anaphylaxis Verified 05/18/23 14:00 latex Allergy Rash Verified 05/18/23 14:00 lidocaine Allergy Unknown Verified 05/18/23 14:00 Penicillins Allergy Hives Verified 05/18/23 14:00 all antibiotic except Allergy Anaphylaxis Uncoded 05/18/23 14:00 levaquin - Social History Does the pt smoke?: No Smoking Status: Never smoker Does the pt drink ETOH?: No Does the pt have substance abuse?: No - Immunizations Immunizations are current?: Yes PD ED PE NORMAL - Vitals Vital signs reviewed: Yes - General General: Alert and oriented X 3, No acute distress, Well developed/nourished - Neck Neck: Supple, no meningeal sign, No bony TTP - Respiratory Respiratory: No respiratory distress, Clear bilaterally - Derm Derm: Normal color, Warm and dry, No rash - Extremities Extremities: Other (left elbow ttp, no swelling or abrasion. 2+ left radial pulses w/ nl sensation in hand. left elbow in sling. ) - Neuro Neuro: Alert and oriented X 3 Eye Opening: Spontaneous Motor: Obeys Commands Verbal: Oriented GCS Score: 15 - Psych Psych: Normal mood, Normal affect Results - Vitals Vitals: Vital Signs - 24 hr 05/18/23 13:57 Temperature 36.4 C L Heart Rate 85 Respiratory 20 Rate Blood Pressure 143/84 H O2 Saturation 100 Oxygen O2 Source Room air - Rads (name of study) No standard instances Relevant Findings:: Final report received PD Medical Decision Making - ED course Complexity details: reviewed results, re-evaluated patient, considered differential, d/w patient ED course: 28-year-old female presented after a fall again today as described HPI. She landed on her left elbow and also hit her left ribs as described in HPI. She is well-appearing here on physical exam with no acute physical exam findings did not tenderness of these areas. We imaged them to evaluate for fracture and they are negative. I did discuss with patient that she Likely has chest wall contusions, minor fracture is still possibility but treatment is the same which is supportive, recommended cool compress, ibuprofen and Tylenol as needed and to rest for the next several days as needed. Return precautions reviewed if new or worsening symptoms. Departure - Departure Disposition: 01 Home, Self Care Clinical Impression: Elbow injury Qualifiers: Encounter type: initial encounter Laterality: left Qualified Code(s): S59.902A - Unspecified injury of left elbow, initial encounter Chest wall contusion Qualifiers: Encounter type: initial encounter Laterality: left Qualified Code(s): S20.212A - Contusion of left front wall of thorax, initial encounter Condition: Good Instructions: ED Contusion Upper Ext, ED Contusion Chest Wall Forms: PCP List
--- NOTE | 2023-05-18 16:37 | XRAY Report ---
PROCEDURE: Ribs w/PA Chest LT INDICATIONS: fall w/ left rib pain TECHNIQUE: 3 views of the left ribs were acquired, along with a single view chest. COMPARISON: None. FINDINGS: Surgical changes and devices: None. Bones and chest wall: No fractures or dislocations. No suspicious bony lesions. Overlying soft tis sues appear unremarkable. Lungs and pleura: No pleural effusions or pneumothorax. Lungs appear clear. Mediastinum: Mediastinal contours appear normal. Heart size is normal. IMPRESSION: No visualized acute fracture or dislocation. However, occult injury cannot be excluded. Recommend elba rt interval imaging follow-up in 7-10 days as clinically indicated for additional evaluation. Reviewed by: Zaida Aceves MD on 05/18/2023 4:35 PM PDT Approved by: Zaida Aceves MD on 05/18/2023 4:35 PM PDT Station ID: [id number]
--- NOTE | 2023-05-18 17:02 | XRAY Report ---
PROCEDURE: Elbow 3 View LT INDICATIONS: fall TECHNIQUE: 3 views of the elbow were acquired. COMPARISON: None FINDINGS: Bones: No fractures or dislocations. No suspicious bony lesions. Soft tissues: No elbow joint effusion. No suspicious soft tissue calcifications. IMPRESSION: Unremarkable elbow radiographs Reviewed by: Vinicio Roche MD on 05/18/2023 4:01 PM AKDT Approved by: Vinicio Roche MD on 05/18/2023 4:01 PM AKDT Station ID: [id number]
[2023-05-18 17:18] VITALS: BP 135/75; O2SAT 98
== END 2023-05-18 17:28 | disposition home or self-care (01) ==
LOC: ED 13:30
DX: S59.902A Unspecified injury of left elbow, initial encounter (principal); S20.212A Contusion of left front wall of thorax, initial encounter; W10.8XXA Fall (on) (from) other stairs and steps, initial encounter; Y93.01 Activity, walking, marching and hiking; Y92.89 Other specified places as the place of occurrence of the external cause; Z79.899 Other long term (current) drug therapy
CPT/HCPCS: 99283; 99284

== ENCOUNTER 2023-06-25 14:58 | Emergency (ER) | payer MEDICAID ==
[2023-06-25 16:08] LABS: BASOPHILS % (AUTO) 0.3 %; HCT - HEMATOCRIT 37.9 % (37.0-47.0); HGB - HEMOGLOBIN 13.1 g/dL (12.0-16.0); LYMPHOCYTES # (AUTO) 2.9 10^3/uL (1.5-3.5); LYMPHOCYTES % (AUTO) 42.5 %; MEAN CORPUSCULAR HGB CONC 34.6 g/dL (32.0-36.0); MEAN CORPUSCULAR VOLUME 92.7 fL (81.0-99.0); MEAN PLATELET VOLUME 10.3 fL (7.9-10.8); MONOCYTES # (AUTO) 0.5 10^3/uL (0.0-1.0); MONOCYTES % (AUTO) 6.8 %; NEUTROPHILS # (AUTO) 3.4 10^3/uL (1.5-6.6); NEUTROPHILS % (AUTO) 50.3 %; PLT - PLATELET COUNT 250 10^3/uL (130-450); RED BLOOD COUNT 4.09 10^6/uL (4.20-5.40); RED CELL DISTRIBUTION WIDTH 12.4 % (12.0-15.0); WHITE BLOOD COUNT 6.8 x10^3/uL (4.8-10.8)
[2023-06-25] MEDS ORDERED: SODIUM CHLORIDE 0.9% 1,000 ML IV STA (16:11)
[2023-06-25] MEDS ORDERED: ONDANSETRON 4 MG/2 ML VIAL IVP STA (16:11)
--- NOTE | 2023-06-25 16:14 | ED Physician Documentation ---
History of Present Illness - Stated complaint Stated Complaint: ABD PX, N/V BLOOD, POST ENDO - Chief complaint Chief Complaint: Abd Pain - Additonal information Additional information: 28-year-old female here for evaluation of upper abdominal pain nausea, vomiting and hematic emesis. She underwent an EGD through GI at [facility] yesterday. She reports to me that she was told she had gastritis. Biopsies were obtained. She was advised to continue on her PPI and Carafate. Shortly after returning home she began vomiting. States she vomited bright red blood multiple times though she is really unable to quantify the volume for me. She has taken promethazine with some relief of n/v. 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: Ovarian cysts : Kidney stones HEENT: None Psych: Post traumatic stress disorder Derm: None - Past Surgical History Past Surgical History: Yes General: Cholecystectomy, Appendectomy /THERMAL INTELLIGENCE ANALYST: Hysterectomy, Oophrectomy - Present Medications Home Medications: Ambulatory Orders Medication Instructions Recorded Confirmed Sertraline HCl 100 mg PO DAILY 12/30/20 06/25/23 diazePAM [Valium] 10 mg PO TID 12/30/20 06/25/23 Trazodone HCl 100 mg ORAL HS 11/03/22 06/25/23 lamoTRIgine [LaMICtal] 100 mg PO DAILY 05/18/23 06/25/23 lamoTRIgine [Lamictal] 200 mg PO HS 05/18/23 06/25/23 Albuterol [Proventil Hfa] 1 - 2 puffs IH Q4HR PRN 06/25/23 06/25/23 Pantoprazole [Protonix] 40 mg PO DAILY 06/25/23 06/25/23 Sucralfate [Carafate] 1 gm PO HS 06/25/23 06/25/23 - Allergies Allergies/Adverse Reactions: Allergies Allergy/AdvReac Type Severity Reaction Status Date / Time adhesive Allergy Rash Verified 05/28/23 08:37 Cephalosporins Allergy Hives Verified 06/25/23 15:12 Iodinated Contrast Media Allergy Anaphylaxis Verified 06/25/23 15:12 latex Allergy Rash Verified 06/25/23 15:12 lidocaine Allergy Unknown Verified 06/25/23 15:12 Penicillins Allergy Hives Verified 06/25/23 15:12 all antibiotic except Allergy Anaphylaxis Uncoded 06/25/23 15:12 levaquin - Social History Does the pt smoke?: No Smoking Status: Never smoker Does the pt drink ETOH?: No Does the pt have substance abuse?: No - Immunizations Immunizations are current?: Yes - POLST Patient has POLST: No PD ED PE NORMAL - General General: Alert and oriented X 3, No acute distress, Well developed/nourished - HEENT HEENT: Atraumatic - Neck Neck: Supple, no meningeal sign - Cardiac Cardiac: RRR, No murmur - Respiratory Respiratory: No respiratory distress, Clear bilaterally - Abdomen Abdomen: Normal bowel sounds, Soft. 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 Eye Opening: Spontaneous Motor: Obeys Commands Verbal: Oriented GCS Score: 15 Results - Vitals Vitals: Vital Signs - 24 hr 06/25/23 06/25/23 06/25/23 15:06 15:46 18:00 Temperature 36.1 C L 36.2 C L Heart Rate 90 83 67 Respiratory 16 18 16 Rate Blood Pressure 137/84 H 123/78 133/81 H O2 Saturation 100 99 100 Oxygen O2 Source Room air - Labs Labs: Laboratory Tests 06/25/23 06/25/23 06/25/23 15:40 15:40 15:40 WBC 6.8 RBC 4.09 L Hgb 13.1 Hct 37.9 MCV 92.7 MCH 32.0 H MCHC 34.6 RDW 12.4 Plt Count 250 MPV 10.3 Neut # (Auto) 3.4 Lymph # (Auto) 2.9 Jones # (Auto) 0.5 Eos # (Auto) 0.0 Baso # (Auto) 0.0 Absolute Nucleated RBC 0.00 Nucleated RBC % 0.0 Sodium 137 Potassium 3.5 Chloride 106 Carbon Dioxide 26 Anion Gap 5.0 L BUN 11 Creatinine 0.9 Estimated GFR (MDRD) 74 L Glucose 101 Calcium 9.3 Total Bilirubin 0.3 AST 11 ALT 10 Alkaline Phosphatase 49 Total Protein 6.4 Albumin 4.2 Globulin 2.2 Albumin/Globulin Ratio 1.9 Lipase 36 Serum HCG, Qual NEGATIVE - Rads (name of study) abd XR 2v Relevant Findings:: Final report received (No acute abdominal pathology. No evidence of free air post endoscopy.) PD Medical Decision Making - ED course Complexity details: reviewed results, re-evaluated patient, d/w patient, d/w family ED course: Well appearing 28-year-old female presents to the emergency department for epigastric abdominal pain nausea and vomiting. Does have a history of gastritis and underwent EGD at [facility] yesterday. Reports vomiting bright red blood this morning. Presentation to the emergency department she was alert and very well-appearing. Mild nonperitoneal epigastric tenderness elicited. Here in the emergency department vital signs were without worrisome pathology such as hypotension or tachycardia. CBC and electrolytes as interpreted by myself showed no anemia. Hemoglobin essentially unchanged at 13. 2 view x-ray of the abdomen revealed no findings of perforation or free air. Here in the ER she was given a single dose of Zofran but continued to vomit. Following this she was given a single dose of Phenergan IV and on reevaluation the nausea and vomiting has improved and she is tolerating sips of clear liquids. This time she is stable for discharge home advised to continue to follow with GI at [facility] for endoscopy pathology results. She is to continue her PPI and Carafate. Recommended bland diet over the next 24 to 48 hours. The usual emergent return precautions were discussed for worsening symptoms. Departure - Departure Disposition: Home, Self Care Clinical Impression: Epigastric abdominal pain Gastritis Qualifiers: Gastritis type: unspecified gastritis Chronicity: chronic Gastritis bleeding: presence of bleeding unspecified Qualified Code(s): K29.50 - Unspecified chronic gastritis without bleeding Condition: Stable Record reviewed to determine appropriate education?: Yes Comments: Eileen your labs today were essentially normal with no change in your red blood cell count. The x-ray completed of your abdomen did not show any free air or evidence of perforation after your EGD. It is not unexpected that you would have a flare of your stomach pain after the EGD with biopsy. I recommend you continue the PPI medication and the Carafate at home. Over the next 24 hours clear liquids only followed by bland foods. Continue to follow closely with GI at [facility] for the endoscopy results and pathology. Return immediately to the ER if you have uncontrolled vomiting, feel faint, dizzy, have a racing heart at rest or any worsening symptoms. Forms: PCP List
[2023-06-25 16:21] LABS: ALBUMIN 4.2 g/dL (3.2-5.5); ALBUMIN/GLOBULIN RATIO 1.9 (1.0-2.2); BILIRUBIN,TOTAL 0.3 mg/dL (0.2-1.0); CALCIUM 9.3 mg/dL (8.5-10.3); CREATININE 0.9 mg/dL (0.6-1.3); POTASSIUM 3.5 mmol/L (3.5-4.5); TOTAL PROTEIN 6.4 g/dL (6.4-8.9)
[2023-06-25 16:27] LABS: HCG,QUALITATIVE BLOOD NEGATIVE
[2023-06-25] MEDS ORDERED: HYDROmorphone 0.5 MG/0.5 ML SYRINGE IVP STA (16:49)
--- NOTE | 2023-06-25 17:04 | XRAY Report ---
PROCEDURE: Abdomen 2 View X-Ray INDICATIONS: pain after endoscopr; AP and upright please TECHNIQUE: 2 views of the abdomen were acquired. COMPARISON: None. FINDINGS: Surgical changes and devices: Cholecystectomy clips. Bowel: No pneumoperitoneum. The bowel gas pattern is normal. Stool load within normal limits. Soft tissues: No masses; visualized solid organ contours appear normal in size. No suspicious abdom inal calcifications. Bones: No suspicious bony abnormalities. IMPRESSION: No acute abdominal pathology. No evidence of free air post endoscopy. Reviewed by: Bar Campbell MD on 06/25/2023 5:03 PM PST Approved by: Bar Campbell MD on 06/25/2023 5:03 PM PST Station ID: [id number]
[2023-06-25] MEDS ORDERED: PROMETHAZINE INJ 25 MG in SODIUM CHLORIDE 0.9% 50 ML IV STA (17:34)
[2023-06-25 18:02] VITALS: BP 133/81; O2SAT 100
== END 2023-06-25 18:59 | disposition home or self-care (01) ==
LOC: ED 14:58
DX: K29.50 Unspecified chronic gastritis without bleeding (principal)
CPT/HCPCS: 36415; 74019; 80053; 83690; 84703; 85025; 96365; 96375; 99284; 99285; J1170; J7040

== ENCOUNTER 2023-07-12 12:28 | Emergency (ER) | payer MEDICAID ==
--- NOTE | 2023-07-12 12:42 | ED Physician Documentation ---
PD HPI FEMALE - Stated complaint Stated Complaint: /PELVIC PX - History obtained from History obtained from: Patient - History of Present Illness Timing - onset: How many days ago (few) Timing - duration: Days (few) Timing - details: Gradual onset, Still present (has increased in amount overnight/today with pictures she took of the red blood and small clot that was in toilet after sitting there. She denies blood being from rectum nor urine.) Associated symptoms: Back pain, Pelvic pain, Vaginal discharge. No: Fever, Vaginal bleeding, Genital sore/lesion Similar symptoms before: Has not had sx before Review of Systems Constitutional: reports: Fatigue. denies: Fever, Chills, Myalgias GI: reports: Nausea. 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 AND APPEALS SPECIALIST: Ovarian cysts : Kidney stones HEENT: None Psych: Post traumatic stress disorder Derm: None - Past Surgical History Past Surgical History: Yes General: Cholecystectomy, Appendectomy /GRIEVANCE AND APPEALS SPECIALIST: Hysterectomy, Oophrectomy - Present Medications Home Medications: Ambulatory Orders Medication Instructions Recorded Confirmed Sertraline HCl 100 mg PO DAILY 12/30/20 06/25/23 diazePAM [Valium] 10 mg PO TID 12/30/20 06/25/23 Trazodone HCl 100 mg ORAL HS 11/03/22 06/25/23 lamoTRIgine [LaMICtal] 100 mg PO DAILY 05/18/23 06/25/23 lamoTRIgine [Lamictal] 200 mg PO HS 05/18/23 06/25/23 Albuterol [Proventil Hfa] 1 - 2 puffs IH Q4HR PRN 06/25/23 06/25/23 Pantoprazole [Protonix] 40 mg PO DAILY 06/25/23 06/25/23 Sucralfate [Carafate] 1 gm PO HS 06/25/23 06/25/23 Fluconazole [Diflucan] 100 mg PO Q3D 6 Days #3 tablet 07/12/23 HYDROcod/ACETAM 5/325 [Wing 5/325] 1 ea PO Q6H PRN #12 tablet 07/12/23 Meloxicam [Mobic] 7.5 mg PO BID 10 Days #20 tablet 07/12/23 metroNIDAZOLE [Flagyl] 500 mg PO BID 7 Days #14 tablet 07/12/23 - Allergies Allergies/Adverse Reactions: Allergies Allergy/AdvReac Type Severity Reaction Status Date / Time adhesive Allergy Rash Verified 07/12/23 12:40 Cephalosporins Allergy Hives Verified 07/12/23 12:40 Iodinated Contrast Media Allergy Anaphylaxis Verified 07/12/23 12:40 latex Allergy Rash Verified 07/12/23 12:40 lidocaine Allergy Unknown Verified 07/12/23 12:40 Penicillins Allergy Hives Verified 07/12/23 12:40 all antibiotic except Allergy Anaphylaxis Uncoded 07/12/23 12:40 levaquin - Social History Does the pt smoke?: No Smoking Status: Never smoker Does the pt drink ETOH?: No Does the pt have substance abuse?: No - Immunizations Immunizations are current?: Yes - POLST Patient has POLST: No PD ED PE NORMAL - Vitals Vital signs reviewed: Yes - General General: Alert and oriented X 3, Well developed/nourished - Abdomen Abdomen: Normal bowel sounds, Soft, Non distended, No organomegaly, Other (tender lower abd left side in particular. With local guarding. ) - Female Female : Technical Fellow present (Martha ED nurse ), Other (no blood noted in vaginal vault. Inner labia with some redness but no sores. The vault with moderate thicker white dichare without malodor. No cervix. Vaginal surgical cuff appears healed. There is some mucosal irritation left rear without active bleeding. No other area of apparent bleeding. ) - Rectal Rectal: Other (external inspection is without any dired blood nor hemorrhoids. ) Results - Vitals Vitals: Vital Signs - 24 hr 07/12/23 07/12/23 07/12/23 12:40 12:43 14:43 Temperature 36.8 C 36.8 C Heart Rate 88 88 86 Respiratory 16 16 16 Rate Blood Pressure 140/90 H 140/90 H 138/88 H O2 Saturation 100 100 100 07/12/23 16:00 Temperature 36.8 C Heart Rate 82 Respiratory 16 Rate Blood Pressure 130/80 O2 Saturation 100 Oxygen O2 Source Room air - Labs Labs: Laboratory Tests 07/12/23 07/12/23 07/12/23 13:06 13:06 13:06 WBC 5.5 RBC 4.21 Hgb 13.2 Hct 38.4 MCV 91.2 MCH 31.4 H MCHC 34.4 RDW 12.3 Plt Count 232 MPV 9.5 Neut # (Auto) 3.3 Lymph # (Auto) 1.6 [place] # (Auto) 0.5 Eos # (Auto) 0.0 Baso # (Auto) 0.0 Absolute Nucleated RBC 0.00 Nucleated RBC % 0.0 Sodium 135 Potassium 4.4 Chloride 104 Carbon Dioxide 27 Anion Gap 4.0 L BUN 11 Creatinine 0.8 Estimated GFR (MDRD) 84 L Glucose 90 Calcium 9.6 Magnesium 1.7 Total Bilirubin 0.5 AST 19 ALT 13 Alkaline Phosphatase 49 Total Protein 6.8 Albumin 4.3 Globulin 2.5 Albumin/Globulin Ratio 1.7 Lipase 11 Urine Color Urine Clarity Urine pH Ur Specific [place] Urine Protein Urine Glucose (UA) Urine Ketones Urine Occult Blood Urine Nitrite Urine Bilirubin Urine Urobilinogen Ur Leukocyte Esterase Urine RBC Urine WBC Ur Squamous Epith Cells Urine Bacteria Ur Microscopic Review Urine Culture Comments C. glabrata (PCR) C. krusei (PCR) Meredith species DNA T. vaginalis (PCR) Bact Vaginosis (PCR) Blood Type A NEGATIVE Blood Type Recheck Antibody Screen NEGATIVE 07/12/23 07/12/23 07/12/23 14:01 15:15 15:18 WBC RBC Hgb Hct MCV MCH MCHC RDW Plt Count MPV Neut # (Auto) Lymph # (Auto) [place] # (Auto) Eos # (Auto) Baso # (Auto) Absolute Nucleated RBC Nucleated RBC % Sodium Potassium Chloride Carbon Dioxide Anion Gap BUN Creatinine Estimated GFR (MDRD) Glucose Calcium Magnesium Total Bilirubin AST ALT Alkaline Phosphatase Total Protein Albumin Globulin Albumin/Globulin Ratio Lipase Urine Color RED/BLOODY Urine Clarity CLOUDY Urine pH 6.0 Ur Specific [place] 1.010 Urine Protein 30 H Urine Glucose (UA) NEGATIVE Urine Ketones NEGATIVE Urine Occult Blood LARGE H Urine Nitrite NEGATIVE Urine Bilirubin NEGATIVE Urine Urobilinogen 0.2 (NORMAL) Ur Leukocyte Esterase NEGATIVE Urine RBC TNTC H Urine WBC 0-3 Ur Squamous Epith Cells FEW Squamous Urine Bacteria Rare Ur Microscopic Review INDICATED Urine Culture Comments NOT INDICATED C. glabrata (PCR) NEGATIVE C. krusei (PCR) NEGATIVE Meredith species DNA NEGATIVE T. vaginalis (PCR) NEGATIVE Bact Vaginosis (PCR) POSITIVE A Blood Type Blood Type Recheck A NEGATIVE Antibody Screen PD Medical Decision Making - ED course Complexity details: reviewed results (left ovary without notable findings. The pelvic pain may be some inflammation of it, or the development of the vaginitis as the speculum exam was quite painful for her. ), considered differential, d/w patient Reviewed Lab Results: charting after patient discharged: vaginal swab resulting BV. Adding Flagyl to her scripts. Will have nursing call to contact. ED course: The patient has been having pain in the left lower abdomen she states consistent with previous ovarian type pain. She was seen 2 and half weeks ago at [facility] emergency room for similar and also just general nausea vomiting. She was treated there and had normal blood count and electrolytes etc. CT KUB at that time and not [facility] at [facility] showed a 3.4 cm ovarian cyst without any free fluid. No stones. No other acute process. Seen in the gynecology office or primary care office perhaps 4 days ago and had a blood count and pelvic exam. We did get the blood count results from that. She had a pelvic ultrasound previously at our facility about 2 months ago that showed a hemorrhagic cyst. We did get records from [facility] as well as the clinic and her most recent hemoglobin from just 4 days ago was 13.6 white count was 6. We do not have the notes from the office about the pelvic exam but the patient states that a did not see fully to the cough and did not identify an area of bleeding. I talked with the patient and we repeated the vaginal exam here for repeat viewing. The patient states no prescriptions given from the office visit. Pelvic exam c/w vaginitis. Pt states was told no signs of infection on pelvic, per patient. Here in ER, there is moderate to more amount of vag discharge and mucosal redness. Will treat for vaginitis. US did not show any free fluid. NO cyst. Normal blood flow to the ovary. Departure - Departure Disposition: 01 Home, Self Care Clinical Impression: Acute vaginitis, Vaginal bleeding, Lower abdominal pain Condition: Stable Record reviewed to determine appropriate education?: Yes Instructions: ED Vaginal Infec Fungal Meredith Follow-Up: NIKOLAS GARDNER ARNP [Primary Care Provider] - [facility] [Provider Group] Prescriptions: Fluconazole [Diflucan] 100 mg PO Q3D 6 Days #3 tablet Meloxicam [Mobic] 7.5 mg PO BID 10 Days #20 tablet HYDROcod/ACETAM 5/325 [Wing 5/325] 1 ea PO Q6H PRN #12 tablet PRN Reason: Pain Comments: There was a small spot in the left back wall vaginal vault that was a bit raw and irritated. Was not bleeding at this time but likely was the spot. No signs of active bleeding. I did cauterize that area. I did not see other spots that were obviously bleeding sources. Each to have a fair amount of discharge in the vaginal vault with the mucosal tissue looking generally irritated. This looks most likely a yeast infection we can treat it that way. I did do a culture swab from the vaginal vault and that will result later or tomorrow to look for bacterial causes instead. Will call you if we need to add medication for it. For now I would have you take a antifungal for the yeast infection and repeat dosing at 2 to 3-day intervals for 3 more doses. Stay well-hydrated otherwise. Your blood count was good and so you do have "room to spare" if you have still some bleeding while the irritation from the infection is improving. Return if significant bleeding again. Your ultrasound showed small cyst on the left ovary. It had good blood flow. There is no signs of free fluid to suggest internal bleeding. Presumably had some inflammation around the ovary causing the pain. I would suggest staying well-hydrated and using an anti-inflammatory twice daily for the next week or so with food. To that add Tylenol 500 to 650 mg every 4-6 hours if needed for pain. I would anticipate improvement over the next several days. Return if worse. I sent your prescriptions to your preferred pharmacy, [facility]. Forms: PCP List Discharge Date/Time: 07/12/23 16:22
[2023-07-12 12:50] VITALS: O2SAT 100
[2023-07-12] MEDS ORDERED: KETOROLAC 15 MG/ML VIAL IVP STA (12:56)
[2023-07-12] MEDS ORDERED: SODIUM CHLORIDE 0.9% 1,000 ML IV STA (12:56)
[2023-07-12] MEDS ORDERED: HYDROmorphone 0.5 MG/0.5 ML SYRINGE IVP STA (12:56)
[2023-07-12] MEDS ORDERED: ONDANSETRON 4 MG/2 ML VIAL IVP STA (12:56)
[2023-07-12 13:15] LABS: BASOPHILS % (AUTO) 0.4 %; HCT - HEMATOCRIT 38.4 % (37.0-47.0); HGB - HEMOGLOBIN 13.2 g/dL (12.0-16.0); LYMPHOCYTES # (AUTO) 1.6 10^3/uL (1.5-3.5); LYMPHOCYTES % (AUTO) 29.9 %; MEAN CORPUSCULAR HEMOGLOBIN 31.4 pg (27.0-31.0); MEAN CORPUSCULAR HGB CONC 34.4 g/dL (32.0-36.0); MEAN CORPUSCULAR VOLUME 91.2 fL (81.0-99.0); MEAN PLATELET VOLUME 9.5 fL (7.9-10.8); MONOCYTES # (AUTO) 0.5 10^3/uL (0.0-1.0); MONOCYTES % (AUTO) 9.2 %; NEUTROPHILS # (AUTO) 3.3 10^3/uL (1.5-6.6); NEUTROPHILS % (AUTO) 60.1 %; PLT - PLATELET COUNT 232 10^3/uL (130-450); RED BLOOD COUNT 4.21 10^6/uL (4.20-5.40); RED CELL DISTRIBUTION WIDTH 12.3 % (12.0-15.0); WHITE BLOOD COUNT 5.5 x10^3/uL (4.8-10.8)
[2023-07-12 13:28] LABS: ALBUMIN 4.3 g/dL (3.2-5.5); MAGNESIUM 1.7 mg/dL (1.7-2.3)
[2023-07-12 13:41] LABS: ALBUMIN/GLOBULIN RATIO 1.7 (1.0-2.2); BILIRUBIN,TOTAL 0.5 mg/dL (0.2-1.0); CALCIUM 9.6 mg/dL (8.5-10.3); CREATININE 0.8 mg/dL (0.6-1.3); POTASSIUM 4.4 mmol/L (3.5-4.5); TOTAL PROTEIN 6.8 g/dL (6.4-8.9)
[2023-07-12] MEDS ORDERED: HYDROmorphone 1 MG/ML CARPUJECT IVP STA ×2 (14:41→15:52)
[2023-07-12] MEDS ORDERED: FERRIC SUBSULFATE 8 ML SOLUTION (FOR OR) TOP STA (14:52)
[2023-07-12] MEDS ORDERED: SILVER NITRATE APPLICATOR TOP STA (15:33)
[2023-07-12 15:34] LABS: BILIRUBIN,URINE NEGATIVE (NEGATIVE); GLUCOSE, URINE (UA) NEGATIVE (NEGATIVE); KETONES,URINE (UA) NEGATIVE (NEGATIVE); LEUKOCYTE ESTERASE, URINE NEGATIVE (NEGATIVE); NITRITE,URINE NEGATIVE (NEGATIVE); OCCULT BLOOD,URINE LARGE (NEGATIVE); PROTEIN,URINE 30 mg/dL (NEGATIVE); UROBILINOGEN,URINE 0.2 (NORMAL) E.U./dL (NORMAL)
[2023-07-12 15:38] LABS: CLARITY,URINE CLOUDY (CLEAR)
[2023-07-12 15:51] LABS: BACTERIA,URINE Rare /HPF (None Seen); RBC,URINE TNTC /HPF (0-5); SQUAMOUS EPITHELIAL CELL,UR FEW Squamous (<= Few); WBC,URINE 0-3 /HPF (0-5)
[2023-07-12] MEDS ORDERED: FLUCONAZOLE 100 MG TABLET PO STA (15:51)
--- NOTE | 2023-07-12 15:57 | Ultrasound Report ---
PROCEDURE: Pelvic w/Doppler Limited INDICATIONS: pelvic pain,L TECHNIQUE: Real-time transabdominal scanning was performed of the pelvic organs, with image documentation. Dopp ler interrogation was performed of the ovaries bilaterally. COMPARISON: None. FINDINGS: Uterus: Surgically absent Ovaries: Right ovary is surgically absent. Left ovary measures 3.8 x 2.3 x 3.6 cm, with a calculated volume of 16.2 mL. There are less than 12 follicles noted. There is no cystic lesion identified. Ther e is normal arterial and venous flow present. Other: No pathologic free abdominal or pelvic fluid. IMPRESSION: 1. Remote hysterectomy and right oophorectomy 2. Unremarkable left ovary. Reviewed by: Bar Campbell MD on 07/12/2023 3:55 PM PST Approved by: Bar Campbell MD on 07/12/2023 3:55 PM PST Station ID: [id number]
[2023-07-12 16:13] VITALS: BP 130/80
[2023-07-12 19:06] LABS: BACTERIAL VAGINOSIS DNA POSITIVE (NEGATIVE); CANDIDA GLABRATA DNA NEGATIVE (NEGATIVE); CANDIDA GROUP DNA NEGATIVE (NEGATIVE); CANDIDA KRUSEI DNA NEGATIVE (NEGATIVE); TRICHOMONAS VAGINALIS DNA NEGATIVE (NEGATIVE)
== END 2023-07-12 16:22 | disposition home or self-care (01) ==
LOC: ED 12:28
DX: N76.0 Acute vaginitis (principal); N93.9 Abnormal uterine and vaginal bleeding, unspecified; R10.30 Lower abdominal pain, unspecified; N83.202 Unspecified ovarian cyst, left side
CPT/HCPCS: 36415; 76856; 80053; 81001; 81514; 83690; 83735; 85025; 86850; 86900; 86901; 93976; 96374; 96375; 96376; 99284; A9270; J1170; 81003; 87086

== ENCOUNTER 2023-07-30 15:59 | Emergency (ER) | payer MEDICAID ==
[2023-07-30 16:16] VITALS: BP 127/75; O2SAT 99
--- NOTE | 2023-07-30 16:45 | ED Physician Documentation ---
History of Present Illness - Stated complaint Stated Complaint: LOWER BACK PX/ - Chief complaint Chief Complaint: Back Pain - History obtained from History obtained from: Patient, Family - Additonal information Additional information: 28-year-old female who presents with her mother for very severe issues today. The patient states that she has had some increasing lower abdominal swelling as well as generalized discomfort that has worsened over the last couple of weeks and especially in the last few days. She has also had bilateral flank pain and hematuria. He patient additionally noticed a bruise on the lower back that is tender, atraumatic. She has had a history of a hysterectomy and cholecystectomy, she has been dealing with vaginal bleeding despite the hysterectomy for the last several months and has an appointment on 08/06/2022 with gynecology. She is also been having some nipple discharge including bloody discharge and increasing even though her youngest child is 6 years old and she has not not been breast-feeding for quite some time. The patient states she is BRCA2 positive and has had regular mammograms but was to have a breast MRI recently however it was canceled By the radiologist according to patient. KAEL Reviewed: multiple narcotic and benzo scripts in the past year from various providers, several in the month of June. 18 ED visits here in 2022. Review of Systems Constitutional: reports: Reviewed and negative Cardiac: reports: Reviewed and negative Respiratory: reports: Reviewed and negative GI: reports: Abdominal Pain, Abdominal Swelling, Nausea, Vomiting : reports: Hematuria. denies: Dysuria, Frequency, Hesitancy Skin: reports: Other (Unexplained contusion) Musculoskeletal: reports: Back pain Neurologic: reports: Reviewed and negative PD PAST MEDICAL HISTORY - Past Medical History Past Medical History: Yes Cardiovascular: None Respiratory: None Neuro: Seizure disorder, Other Endocrine/Autoimmune: None GI: GERD, Other FIRST MATE: Ovarian cysts : Kidney stones HEENT: None Psych: Post traumatic stress disorder Derm: None Other Past Medical History: TBI - Past Surgical History Past Surgical History: Yes General: Cholecystectomy, Appendectomy /FIRST MATE: Hysterectomy, Oophrectomy - Present Medications Home Medications: Ambulatory Orders Medication Instructions Recorded Confirmed Sertraline HCl 100 mg PO DAILY 12/30/20 07/30/23 diazePAM [Valium] 10 mg PO TID 12/30/20 07/30/23 Trazodone HCl 100 mg ORAL HS 11/03/22 07/30/23 lamoTRIgine [LaMICtal] 100 mg PO DAILY 05/18/23 07/30/23 lamoTRIgine [Lamictal] 200 mg PO HS 05/18/23 07/30/23 Albuterol [Proventil Hfa] 1 - 2 puffs IH Q4HR PRN 06/25/23 07/30/23 Sucralfate [Carafate] 1 gm PO HS 06/25/23 07/30/23 HYDROcod/ACETAM 5/325 [[place] 5/325] 1 tablet PO BID PRN #10 tablet 07/30/23 - Allergies Allergies/Adverse Reactions: Allergies Allergy/AdvReac Type Severity Reaction Status Date / Time adhesive Allergy Rash Verified 07/30/23 16:07 Cephalosporins Allergy Hives Verified 07/30/23 16:07 Iodinated Contrast Media Allergy Anaphylaxis Verified 07/30/23 16:07 latex Allergy Rash Verified 07/30/23 16:07 lidocaine Allergy Unknown Verified 07/30/23 16:07 Penicillins Allergy Hives Verified 07/30/23 16:07 all antibiotic except Allergy Anaphylaxis Uncoded 07/30/23 16:07 levaquin - Social History Does the pt smoke?: No Smoking Status: Never smoker Does the pt drink ETOH?: No Does the pt have substance abuse?: No - Immunizations Immunizations are current?: Yes - POLST Patient has POLST: No PD ED PE NORMAL - Vitals Vital signs reviewed: Yes - General General: Alert and oriented X 3, No acute distress, Well developed/nourished - HEENT HEENT: Atraumatic, Pharynx benign - Neck Neck: Supple, no meningeal sign, No JVD - Cardiac Cardiac: RRR, No murmur, No gallop, No rub - Respiratory Respiratory: No respiratory distress, Clear bilaterally - Abdomen Abdomen: Normal bowel sounds, Soft, Non distended, Other ( no distention.) - Female Female : Deferred - Back Back: Other (Bilateral CVAT.) - Derm Derm: Normal color, Warm and dry, No rash, Other (There is approximately 6 x 3 cm bruise on the lower lumbar spine. No hematoma no erythema. Mild tenderness to palpation.) - Neuro Neuro: Alert and oriented X 3 Eye Opening: Spontaneous Motor: Obeys Commands Verbal: Oriented GCS Score: 15 - Psych Psych: Normal mood, Normal affect Results - Vitals Vitals: Vital Signs - 24 hr 07/30/23 16:03 Temperature 36 C L Heart Rate 84 Respiratory 16 Rate Blood Pressure 127/75 O2 Saturation 99 Oxygen O2 Source Room air - Labs Labs: Laboratory Tests 07/30/23 07/30/23 07/30/23 17:00 17:30 17:30 WBC 6.4 RBC 4.49 Hgb 13.7 Hct 41.0 MCV 91.3 MCH 30.5 MCHC 33.4 RDW 12.4 Plt Count 259 MPV 9.7 Neut # (Auto) 4.1 Lymph # (Auto) 1.9 [place] # (Auto) 0.5 Eos # (Auto) 0.0 Baso # (Auto) 0.0 Absolute Nucleated RBC 0.00 Nucleated RBC % 0.0 Sodium 136 Potassium 4.2 Chloride 103 Carbon Dioxide 26 Anion Gap 7.0 BUN 13 Creatinine 0.8 Estimated GFR (MDRD) 84 L Glucose 89 Calcium 9.7 Total Bilirubin 0.4 AST 20 ALT 22 Alkaline Phosphatase 45 Total Protein 7.1 Albumin 4.3 Globulin 2.8 Albumin/Globulin Ratio 1.5 Lipase 19 Urine Color LT RED Urine Clarity CLOUDY Urine pH 6.5 Ur Specific [place] <=1.005 Urine Protein 30 H Urine Glucose (UA) NEGATIVE Urine Ketones NEGATIVE Urine Occult Blood LARGE H Urine Nitrite NEGATIVE Urine Bilirubin NEGATIVE Urine Urobilinogen 0.2 (NORMAL) Ur Leukocyte Esterase NEGATIVE Urine RBC TNTC H Urine WBC 4-5 Ur Squamous Epith Cells FEW Squamous Urine Bacteria Few Urine Culture Comments NOT INDICATED Urine HCG, Qual NEGATIVE PD Medical Decision Making - ED course Complexity details: reviewed old records, reviewed results, re-evaluated patient, considered differential, d/w patient, d/w family ED course: 28-year-old female presented with generalized abdominal pain and reported abdominal swelling over the last few days as described in HPI. She also has a nontraumatic contusion that she noted to the lower back. She also has hematuria and or vaginal bleeding. Patient is well-appearing here on physical exam, vital signs are stable, no peritoneal signs but given report of pain and abdominal swelling and patient's additional symptoms, I did recommend we obtain a CT scan, however patient is allergic to contrast this was a noncontrast CT this was obtained in his unremarkable, no acute findings. Her labs likewise are stable aside from some blood in the urine but no sign of infection. CBC and CMP are stable. The patient was informed of findings, she was advised to follow-up with FEATURES EDITOR as scheduled on 08/06/2022. Patient subsequently asked for additional pain medication. I reviewed her ID and she has received multiple narcotic and benzodiazepine prescriptions over the course of the last year and multiple in the month of June. I discussed with patient that we cannot continue to give refills through the ER and she will need to see her primary care provider to discuss chronic pain management. Patient's mother then stepped in and asked that we prescribe pain medication. I reiterated these points and will give a 10 tablet prescription for [place] but no additional refills from the ER. Patient and her mother state understanding. Departure - Departure Disposition: 01 Home, Self Care Clinical Impression: Vaginal bleeding Abdominal pain Qualifiers: Abdominal location: generalized Qualified Code(s): R10.84 - Generalized abdominal pain Condition: Good Instructions: ED Abdominal Pain Female Non-Specific Abdominal Pain Prescriptions: HYDROcod/ACETAM 5/325 [[place] 5/325] 1 tablet PO BID PRN #10 tablet PRN Reason: Pain Comments: Eileen, your labs today and your CT scan are reassuring, there are no signs of infection or any indications of what is causing your abdominal pain. I do think it is important that you see the field cane scaler for your vaginal bleeding and keep that appointment on the . Please follow-up with your primary doctor for chronic pain management. I am prescribing a short course of narcotic pain medication for you. These are potentially dangerous and addictive medications that should be used carefully. These medications may constipate you. Take an [id number] stool softener (docusate) twice daily with plenty of water while taking these medications. If you go 24 hours without a bowel movement, take [id number] miralax, per package instructions. Do not drink or drive while taking these medications. If you received narcotic or sedating medications while in the emergency department, do not drive for 24 hours. Store this medication in a safe, secure place and out of reach of children. It is a violation of federal law to give or sell this medication to another person or to use in a manner other than prescribed. The ED will not refill narcotic prescriptions, including prescriptions lost or stolen. To dispose of unwanted medications: 1. [facility]'s Office provides a drop box for medication in pill form only (no liquids) 8:00 am to 4:30 p.m. Saturday-Saturday in the lobby of the [facility], [address] Empty pills into ziplock bag before disposal. Call [phone] for information. 2.[employer] is a free service available to all [facility] residents. Go to [email or web address] Note that many narcotic pain relievers also contain Tylenol/acetaminophen. Please ensure that your total dose of acetaminophen from all sources does not exceed 3 g (3000 mg) per day.
[2023-07-30 17:21] LABS: BILIRUBIN,URINE NEGATIVE (NEGATIVE); GLUCOSE, URINE (UA) NEGATIVE (NEGATIVE); KETONES,URINE (UA) NEGATIVE (NEGATIVE); LEUKOCYTE ESTERASE, URINE NEGATIVE (NEGATIVE); NITRITE,URINE NEGATIVE (NEGATIVE); OCCULT BLOOD,URINE LARGE (NEGATIVE); PH,URINE 6.5 PH (5.0-7.5); PROTEIN,URINE 30 mg/dL (NEGATIVE); UROBILINOGEN,URINE 0.2 (NORMAL) E.U./dL (NORMAL)
[2023-07-30 17:24] LABS: CLARITY,URINE CLOUDY (CLEAR); HCG UR QUAL NEGATIVE
[2023-07-30 17:31] LABS: BACTERIA,URINE Few /HPF (None Seen); RBC,URINE TNTC /HPF (0-5); SQUAMOUS EPITHELIAL CELL,UR FEW Squamous (<= Few)
[2023-07-30 17:40] LABS: BASOPHILS % (AUTO) 0.5 %; HGB - HEMOGLOBIN 13.7 g/dL (12.0-16.0); LYMPHOCYTES # (AUTO) 1.9 10^3/uL (1.5-3.5); LYMPHOCYTES % (AUTO) 28.7 %; MEAN CORPUSCULAR HEMOGLOBIN 30.5 pg (27.0-31.0); MEAN CORPUSCULAR HGB CONC 33.4 g/dL (32.0-36.0); MEAN CORPUSCULAR VOLUME 91.3 fL (81.0-99.0); MEAN PLATELET VOLUME 9.7 fL (7.9-10.8); MONOCYTES # (AUTO) 0.5 10^3/uL (0.0-1.0); MONOCYTES % (AUTO) 7.6 %; NEUTROPHILS # (AUTO) 4.1 10^3/uL (1.5-6.6); NEUTROPHILS % (AUTO) 62.9 %; PLT - PLATELET COUNT 259 10^3/uL (130-450); RED BLOOD COUNT 4.49 10^6/uL (4.20-5.40); RED CELL DISTRIBUTION WIDTH 12.4 % (12.0-15.0); WHITE BLOOD COUNT 6.4 x10^3/uL (4.8-10.8)
[2023-07-30 17:55] LABS: ALBUMIN 4.3 g/dL (3.2-5.5); ALBUMIN/GLOBULIN RATIO 1.5 (1.0-2.2); BILIRUBIN,TOTAL 0.4 mg/dL (0.2-1.0); CALCIUM 9.7 mg/dL (8.5-10.3); CREATININE 0.8 mg/dL (0.6-1.3); POTASSIUM 4.2 mmol/L (3.5-4.5); TOTAL PROTEIN 7.1 g/dL (6.4-8.9)
[2023-07-30] MEDS ORDERED: HYDROcod/ACETAM 5/325 MG TABLET PO STA (18:22)
--- NOTE | 2023-07-30 19:45 | CT Report ---
PROCEDURE: Abdomen/Pelvis WO INDICATIONS: abdominal pain/swelling. allergic to contrast TECHNIQUE: A CT scan of the abdomen and pelvis was performed without the use of intravenous contrast. Images we re recorded and evaluated at appropriate window settings. Reformats: coronal and sagittal. For radiat ion dose reduction, the following was used: automated exposure control, adjustment of mA and/or kV ac cording to patient size. COMPARISON: 06/08/2022. FINDINGS: Image quality: Diagnostic. Lung bases and heart: Unremarkable. Liver: No solid mass. Gallbladder and biliary tree: Surgically absent. No biliary dilation, accounting for post-cholecystec lai state. Spleen: No splenomegaly. Pancreas: No pancreatic ductal dilation. Adrenals: No adrenal nodule. Kidneys and ureters: No hydronephrosis. No renal cystic lesion which requires follow up. No solid mas s. Bowel and peritoneum: No bowel distension. No pathologic free fluid. Lymph nodes: No central or retroperitoneal adenopathy. Vessels: No infrarenal aortic aneurysm. PELVIS Reproductive organs: Unremarkable. Bladder: No wall thickness, accounting for underdistention. Pelvic lymph nodes: No pelvic adenopathy by size criteria. Bones: No aggressive osseous abnormality. No acute compression fracture. Other: No significant ventral or inguinal hernia. Small fat-containing umbilical hernia without acute inflammation. IMPRESSION: CT abdomen and pelvis without acute abnormalities to explain patient's symptoms. Status post cholecys tectomy. Reviewed by: Scooby Jefferson MD on 07/30/2023 7:44 PM PST Approved by: Scooby Jefferson MD on 07/30/2023 7:44 PM PST Station ID: [id number]
== END 2023-07-30 20:10 | disposition home or self-care (01) ==
LOC: ED 15:59
DX: N93.9 Abnormal uterine and vaginal bleeding, unspecified (principal); R10.84 Generalized abdominal pain; M79.81 Nontraumatic hematoma of soft tissue
CPT/HCPCS: 36415; 74176; 80053; 81001; 81025; 83690; 85025; 99283; 99284; A9270; 87086

== ENCOUNTER 2023-08-03 11:13 | Outpatient (CLI) | payer MEDICAID | END 2023-08-03 23:59 | disposition critical access hospital (66) | LOC: EMS 11:13 | DX: R56.9 Unspecified convulsions (principal) | CPT/HCPCS: A0425; A0427; A0999 ==

== ENCOUNTER 2023-08-03 11:30 | Emergency (ER) | payer MEDICAID ==
--- NOTE | 2023-08-03 11:42 | ED Physician Documentation ---
PD HPI SEIZURE - Stated complaint Stated Complaint: GLF/HIT HEAD SZ - History obtained from History obtained from: Patient, EMS - History of Present Illness Timing - onset: Today, Last night Witnessed: Witnessed, Unwitnessed Number of seizures: Multiple Description of seizure activity: Generalized, Postictal Injury during seizure: None Associated symptoms: None History of seizures: Known seizure disorder Contributing factors: No: Off meds, Out of meds Similar symptoms before: Diagnosis (seizures and sees Dr. Weiss in [place].) Review of Systems Constitutional: denies: Fever, Chills Nose: denies: Rhinorrhea / runny nose, Congestion Throat: denies: Sore throat Respiratory: denies: Cough GI: reports: Abdominal Pain (lower left abdomen for 2-3 weeks. Seen in ER with labs/UA/CT. No findings.), Nausea. 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: Ovarian cysts : Kidney stones HEENT: None Psych: Post traumatic stress disorder Derm: None - Past Surgical History Past Surgical History: Yes General: Cholecystectomy, Appendectomy /SENIOR MANAGER ASSET PROTECTION: Hysterectomy, Oophrectomy - Present Medications Home Medications: Ambulatory Orders Medication Instructions Recorded Confirmed Sertraline HCl 100 mg PO DAILY 12/30/20 07/30/23 diazePAM [Valium] 10 mg PO TID 12/30/20 07/30/23 Trazodone HCl 100 mg ORAL HS 11/03/22 07/30/23 lamoTRIgine [LaMICtal] 100 mg PO DAILY 05/18/23 07/30/23 lamoTRIgine [Lamictal] 200 mg PO HS 05/18/23 07/30/23 Albuterol [Proventil Hfa] 1 - 2 puffs IH Q4HR PRN 06/25/23 07/30/23 Sucralfate [Carafate] 1 gm PO HS 06/25/23 07/30/23 HYDROcod/ACETAM 5/325 [Pepin 5/325] 1 tablet PO BID PRN #10 tablet 07/30/23 Levetiracetam [Keppra] 500 mg PO BID #20 tablet 08/03/23 - Allergies Allergies/Adverse Reactions: Allergies Allergy/AdvReac Type Severity Reaction Status Date / Time adhesive Allergy Rash Verified 07/30/23 16:07 Cephalosporins Allergy Hives Verified 07/30/23 16:07 Iodinated Contrast Media Allergy Anaphylaxis Verified 07/30/23 16:07 latex Allergy Rash Verified 07/30/23 16:07 lidocaine Allergy Unknown Verified 07/30/23 16:07 Penicillins Allergy Hives Verified 07/30/23 16:07 ketorolac [From Toradol] AdvReac Cramps Verified 08/03/23 13:14 all antibiotic except Allergy Anaphylaxis Uncoded 07/30/23 16:07 levaquin - Social History Does the pt smoke?: No Smoking Status: Never smoker Does the pt drink ETOH?: No Does the pt have substance abuse?: No - Immunizations Immunizations are current?: Yes - POLST Patient has POLST: No PD ED PE NORMAL - Vitals Vital signs reviewed: Yes - General General: Alert and oriented X 3, No acute distress, Well developed/nourished - HEENT HEENT: Pharynx benign, Other (tender back of head without deformity. No teeth/tongue injury seen. ) - Cardiac Cardiac: RRR, No murmur - Respiratory Respiratory: No respiratory distress - Abdomen Abdomen: Soft - Female Female : Deferred - Rectal Rectal: Deferred - Back Back: No CVA TTP - Derm Derm: Normal color, Warm and dry - Extremities Extremities: No deformity, No tenderness to palpate, Normal ROM s pain, No edema Results - Vitals Vitals: Vital Signs - 24 hr 08/03/23 08/03/23 08/03/23 11:48 14:19 15:12 Temperature 36.1 C L Heart Rate 68 69 64 Respiratory 18 17 15 Rate Blood Pressure 126/57 L 121/66 135/73 H O2 Saturation 100 99 99 08/03/23 16:44 Temperature Heart Rate 70 Respiratory 22 Rate Blood Pressure 112/72 O2 Saturation 99 Oxygen O2 Source Room air - Labs Labs: Laboratory Tests 08/03/23 08/03/23 08/03/23 13:21 13:21 13:21 WBC 9.2 RBC 4.42 Hgb 13.6 Hct 40.3 MCV 91.2 MCH 30.8 MCHC 33.7 RDW 12.1 Plt Count 269 MPV 9.4 Neut # (Auto) 6.8 H Lymph # (Auto) 1.7 [place] # (Auto) 0.6 Eos # (Auto) 0.0 Baso # (Auto) 0.0 Absolute Nucleated RBC 0.00 Nucleated RBC % 0.0 Sodium 136 Potassium 4.2 Chloride 105 Carbon Dioxide 24 Anion Gap 7.0 BUN 16 Creatinine 0.8 Estimated GFR (MDRD) 84 L Glucose 92 Calcium 9.2 Magnesium 1.7 Total Bilirubin 0.8 AST 16 ALT 20 Alkaline Phosphatase 49 Total Protein 6.9 Albumin 4.4 Globulin 2.5 Albumin/Globulin Ratio 1.8 Lipase 15 Serum HCG, Qual NEGATIVE - Rads (name of study) head/neck/lumbar CT Relevant Findings:: Prelim report reviewed (no fractures nor ICH. ), EMP independent interpretation of test PD Medical Decision Making - ED course Complexity details: re-evaluated patient (she has had many seizures and has had several here in ER. Biref self-limited whole body tremoring with immediate talking and conversant the moment it is stopped.), considered differential (pt with witnessed and unwitnessed multiple seizures last night and today (about 10 so far today). they have been self-limited at 30-60 seconds. Pt awake and alert between them. history of seizures but none the past 3 years. Has not felt ill, not missed meds, no new meds. ), d/w patient, d/w family (mother) Drug Therapy Requiring Monitoring for Toxicity: patient having pain still from low abdomen, with workup 5 days ago. Defer any workups to thisl. Has more seizures with head impact initially, can get CTs. Pt given IV fluids and pain meds here in ED as keeps noting abd pain. ED course: the seizures do appear like seizures and she had 3 in ER at intervals. However some parts are not, like immediately awake and alert, without tongue injury/etc. However she is on seizure meds and sees specialist, so presume Nuerology is right. Can increast lamotrigine but will take awhie to get level to be effective, so bridge with Keppra as already on benzo TID as prophylaxis. Pt and mother agreeale to this. Departure - Departure Disposition: 01 Home, Self Care Clinical Impression: Acute repetitive seizure, Seizure disorder, Lower abdominal pain, Head contusion, Back contusion Condition: Stable Record reviewed to determine appropriate education?: Yes Instructions: ED Seizure Recurrent Follow-Up: NIKOLAS GARDNER ARNP [Primary Care Provider] - Felix Weiss MD [Physician No Access] - Prescriptions: Levetiracetam [Keppra] 500 mg PO BID #20 tablet Comments: At this point, I would suggest increasing your lamotrigine from the current 100 in the morning and 200 at night to either 150 in the morning/200 at night or 200 in the morning/200 at night. Commonly dose increases are made incremental and more likely your neurologist would move it to just 150 in the morning and [address] Weiss Saturday for follow-up advice on medications. Continue your current diazepam medications. Tylenol 500 to 650 mg every 4-6 hours if needed for pains and I would suggest actually taking it fairly regularly for the next several days to help with the pains of your injury from falling and also the pain you have been having in the belly. Since you are having enough repetitive seizures, and the change in the lamotrigine dose will take several days to really have an effect, it would seem reasonable to add another seizure medicine at this time. Your neurologist was not available for call back information at this time and this would be a common response to increase seizures so I would suggest adding Keppra 500 mg twice daily until otherwise advised by your neurologist. I sent a prescription to your preferred pharmacy. Forms: PCP List Discharge Date/Time: 08/03/23 17:38
[2023-08-03] MEDS ORDERED: diazePAM INJ 5 MG/ML SYRINGE IVP STA ×2 (12:02→13:17)
[2023-08-03] MEDS ORDERED: KETOROLAC 15 MG/ML VIAL IVP STA (13:00)
[2023-08-03] MEDS ORDERED: HYDROmorphone 1 MG/ML CARPUJECT IVP STA ×2 (13:02→15:01)
[2023-08-03] MEDS ORDERED: SODIUM CHLORIDE 0.9% 1,000 ML IV STA (13:02)
[2023-08-03] MEDS ORDERED: lamoTRIgine 100 MG TABLET PO STA (13:18)
[2023-08-03 13:26] LABS: BASOPHILS % (AUTO) 0.2 %; HCT - HEMATOCRIT 40.3 % (37.0-47.0); HGB - HEMOGLOBIN 13.6 g/dL (12.0-16.0); LYMPHOCYTES # (AUTO) 1.7 10^3/uL (1.5-3.5); LYMPHOCYTES % (AUTO) 18.6 %; MEAN CORPUSCULAR HEMOGLOBIN 30.8 pg (27.0-31.0); MEAN CORPUSCULAR HGB CONC 33.7 g/dL (32.0-36.0); MEAN CORPUSCULAR VOLUME 91.2 fL (81.0-99.0); MEAN PLATELET VOLUME 9.4 fL (7.9-10.8); MONOCYTES # (AUTO) 0.6 10^3/uL (0.0-1.0); NEUTROPHILS # (AUTO) 6.8 10^3/uL (1.5-6.6); PLT - PLATELET COUNT 269 10^3/uL (130-450); RED BLOOD COUNT 4.42 10^6/uL (4.20-5.40); RED CELL DISTRIBUTION WIDTH 12.1 % (12.0-15.0); WHITE BLOOD COUNT 9.2 x10^3/uL (4.8-10.8)
[2023-08-03 13:49] LABS: ALBUMIN 4.4 g/dL (3.2-5.5); ALBUMIN/GLOBULIN RATIO 1.8 (1.0-2.2); BILIRUBIN,TOTAL 0.8 mg/dL (0.2-1.0); CALCIUM 9.2 mg/dL (8.5-10.3); CREATININE 0.8 mg/dL (0.6-1.3); MAGNESIUM 1.7 mg/dL (1.7-2.3); POTASSIUM 4.2 mmol/L (3.5-4.5); TOTAL PROTEIN 6.9 g/dL (6.4-8.9)
[2023-08-03 14:22] VITALS: O2SAT 99
--- NOTE | 2023-08-03 14:41 | CT Report ---
PROCEDURE: Head WO INDICATIONS: fall/syncope, struck head/neck/back TECHNIQUE: Noncontrast 4.5 mm thick angled axial sections acquired from the foramen magnum to the vertex. For r adiation dose reduction, the following was used: automated exposure control, adjustment of mA and/or kV according to patient size. COMPARISON: 10/16/2022, 03/08/2022. Correlation is also made with the accompanying imaging. FINDINGS: Image quality: There is streak artifact seen through the skull base. CSF spaces: Basal cisterns are patent. No extra-axial fluid collections. Ventricles are normal in size and shape. Brain: No midline shift. No intracranial masses or hemorrhage. [place]-white matter interface is norm al. Skull and face: Calvarium and visualized facial bones are intact, without suspicious lesions. Sinuses: Visualized sinuses and mastoids are clear. IMPRESSION: No acute intracranial pathology. No intracranial hemorrhage is seen. Reviewed by: Deven Drew MD on 08/03/2023 1:40 PM [facility] Approved by: Deven Drew MD on 08/03/2023 1:40 PM [facility] Station ID: [id number]
--- NOTE | 2023-08-03 14:43 | CT Report ---
PROCEDURE: Cervical Spine WO INDICATIONS: fall/syncope, struck head/neck/back TECHNIQUE: Noncontrast 3 mm thick sections acquired from the skull base to the T4 level. Sagittal and coronal r eformats were then constructed. For radiation dose reduction, the following was used: automated exp osure control, adjustment of mA and/or kV according to patient size. COMPARISON: 03/08/2022, 07/28/2021. Correlation is also made with the accompanying imaging. FINDINGS: Image quality: This study is limited by quantum mottle artifact. Bones: No fractures or dislocations. Visualized superior ribs are intact. Soft tissues: Prevertebral soft tissues are normal in thickness. No paravertebral hematomas. No ap ical pneumothoraces. IMPRESSION: Negative for acute fracture. Reviewed by: Deven Drew MD on 08/03/2023 1:41 PM [place] Approved by: Deven Drew MD on 08/03/2023 1:41 PM [facility] Station ID: [id number]
--- NOTE | 2023-08-03 15:03 | CT Report ---
PROCEDURE: Lumbar Spine WO INDICATIONS: syncope/fall, struck head/neck/back TECHNIQUE: Noncontrast 3 mm thick sections acquired from the T12 level to the sacrum. Sagittal and coronal refo rmats were constructed. For radiation dose reduction, the following was used: automated exposure co ntrol, adjustment of mA and/or kV according to patient size. COMPARISON: Correlation is made with prior abdomen pelvis CT, 06/08/2022. Correlation is also made w ith the accompanying imaging. FINDINGS: Image quality: Excellent. Bones: There is normal bony alignment. No acute vertebral body compression fractures. No suspiciou s lytic or blastic bony lesions. Central spinal caliber is of normal overall caliber. No pars defec ts. No significant neural foraminal or central canal narrowing can be seen. Soft tissues: No retroperitoneal masses or hematomas. Visualized aorta is normal in caliber. Aniyah cystectomy clips are seen. Right lower quadrant postoperative change is seen. Hysterectomy. IMPRESSION: Negative for acute posttraumatic injury. Additional findings: Cholecystectomy Right lower quadrant postoperative change Hysterectomy Reviewed by: Deven Drew MD on 08/03/2023 2:01 PM [place] Approved by: Deven Drew MD on 08/03/2023 2:01 PM [facility] Station ID: [id number]
[2023-08-03] MEDS ORDERED: levETIRAcetam 500 MG/5 ML VIAL IVP STA (16:07)
[2023-08-03] MEDS ORDERED: ACETAMINOPHEN 500 MG TABLET PO STA (16:18)
[2023-08-03 16:49] VITALS: BP 112/72
[2023-08-03 16:49] LABS: HCG,QUALITATIVE BLOOD NEGATIVE
== END 2023-08-03 17:38 | disposition home or self-care (01) ==
LOC: EDUNIT# → ED 11:30
DX: G40.909 Epilepsy, unspecified, not intractable, without status epilepticus (principal); S00.93XA Contusion of unspecified part of head, initial encounter; S30.0XXA Contusion of lower back and pelvis, initial encounter; W18.39XA Other fall on same level, initial encounter; Y93.89 Activity, other specified; R10.30 Lower abdominal pain, unspecified
CPT/HCPCS: 36415; 70450; 72125; 72131; 80053; 83690; 83735; 84703; 85025; 96374; 96375; 96376; 99284; A9270; J1170

== ENCOUNTER → 2023-08-04 23:59 | Outpatient (CLI) | payer MEDICAID | END | disposition short-term general hospital (02) | LOC: EMS 08-04 12:22 | DX: R56.9 Unspecified convulsions (principal); Z87.820 Personal history of traumatic brain injury | CPT/HCPCS: A0425; A0427; A0999 ==

== ENCOUNTER 2023-08-09 16:29 | Outpatient (CLI) | payer MEDICAID | END 2023-08-09 16:30 | disposition short-term general hospital (02) | LOC: EMS 16:29 | DX: R56.9 Unspecified convulsions (principal); R10.12 Left upper quadrant pain; Y09 Assault by unspecified means | CPT/HCPCS: A0425; A0427; A0999 ==

== ENCOUNTER 2023-08-10 12:27 | Outpatient (CLI) | payer MEDICAID | END 2023-08-10 12:28 | disposition short-term general hospital (02) | LOC: EMS 12:27 | DX: S70.312A Abrasion, left thigh, initial encounter (principal); V09.00XA Pedestrian injured in nontraffic accident involving unspecified motor vehicles, initial encounter; Y93.89 Activity, other specified; Y92.008 Other place in unspecified non-institutional (private) residence as the place of occurrence of the external cause | CPT/HCPCS: A0425; A0427; A0999 ==

== ENCOUNTER 2023-08-13 14:02 | Emergency (ER) | payer MEDICAID ==
[2023-08-13] MEDS ORDERED: oxyCODONE 5 MG TABLET PO STA (14:20)
--- NOTE | 2023-08-13 14:22 | ED Physician Documentation ---
PD HPI LOWER EXT INJURY - Stated complaint Stated Complaint: LT LEG PAIN/NUMBNESS - Chief complaint Chief Complaint: Trauma Ext - History obtained from History obtained from: Patient - Additional information Additional information: 3 days ago she was pushing a car and it slipped and her left tib-fib area got pinned between the house and the car. She was also punctured by a screw. She was seen at [facility] and says x-rays of the knee were done but her pain is lower than that and is still having a lot of pain. She says her tetanus was not updated and she did not know when it was, but review of the chart shows that she is up-to-date having had it in 2017. 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: Ovarian cysts : Kidney stones HEENT: None Psych: Post traumatic stress disorder Derm: None - Past Surgical History Past Surgical History: Yes General: Cholecystectomy, Appendectomy /COORDINATOR HOTELS: Hysterectomy, Oophrectomy - Present Medications Home Medications: Ambulatory Orders Medication Instructions Recorded Confirmed Sertraline HCl 100 mg PO DAILY 12/30/20 07/30/23 diazePAM [Valium] 10 mg PO TID 12/30/20 07/30/23 Trazodone HCl 100 mg ORAL HS 11/03/22 07/30/23 lamoTRIgine [LaMICtal] 100 mg PO DAILY 05/18/23 07/30/23 lamoTRIgine [Lamictal] 200 mg PO HS 05/18/23 07/30/23 Albuterol [Proventil Hfa] 1 - 2 puffs IH Q4HR PRN 06/25/23 07/30/23 Sucralfate [Carafate] 1 gm PO HS 06/25/23 07/30/23 HYDROcod/ACETAM 5/325 [Rankin 5/325] 1 tablet PO BID PRN #10 tablet 07/30/23 Levetiracetam [Keppra] 500 mg PO BID #20 tablet 08/03/23 Oxycodone HCl/Acetaminophen 1 - 2 each PO Q6H PRN #10 tablet 08/13/23 [Percocet 5-325 mg Tablet] - Allergies Allergies/Adverse Reactions: Allergies Allergy/AdvReac Type Severity Reaction Status Date / Time adhesive Allergy Rash Verified 07/30/23 16:07 Cephalosporins Allergy Hives Verified 07/30/23 16:07 Iodinated Contrast Media Allergy Anaphylaxis Verified 07/30/23 16:07 latex Allergy Rash Verified 07/30/23 16:07 lidocaine Allergy Unknown Verified 07/30/23 16:07 morphine Allergy Rash Verified 08/13/23 14:14 Penicillins Allergy Hives Verified 07/30/23 16:07 ketorolac [From Toradol] AdvReac Cramps Verified 08/03/23 13:14 all antibiotic except Allergy Anaphylaxis Uncoded 07/30/23 16:07 levaquin - Social History Does the pt smoke?: No Smoking Status: Never smoker Does the pt drink ETOH?: No Does the pt have substance abuse?: No - Immunizations Immunizations are current?: Yes - POLST Patient has POLST: No PD ED PE NORMAL - Vitals Vital signs reviewed: Yes - General General: Alert and oriented X 3, No acute distress - Extremities Extremities: Other (Puncture wound with surrounding bruising to the upper posterior calf, some tenderness anteriorly. Diminished sensation throughout the left foot, not absent, not in a dermatomal or nerve pattern, compartments are soft. She does not appear to be having pain out of proportion to exam.) - Neuro Neuro: Alert and oriented X 3, Normal speech Results - Vitals Vitals: Vital Signs - 24 hr 08/13/23 14:07 Temperature 36.6 C Heart Rate 79 Respiratory 18 Rate Blood Pressure 139/73 H O2 Saturation 100 Oxygen O2 Source Room air - Rads (name of study) Left tib-fib x-ray is negative Relevant Findings:: Final report received, EMP independent interpretation of test PD Medical Decision Making - ED course ED course: 28-year-old woman with crush injury to the left calf/tib-fib area. X-rays done and negative. Clinically this is not concerning for compartment syndrome. She has some paresthesias in the leg but this is likely due to swelling as opposed to any direct nerve injury given the incomplete nature of it. Departure - Departure Disposition: 01 Home, Self Care Clinical Impression: Injury of lower leg Condition: Good Record reviewed to determine appropriate education?: Yes Instructions: ED Contusion Lower Ext Prescriptions: Oxycodone HCl/Acetaminophen [Percocet 5-325 mg Tablet] 1 - 2 each PO Q6H PRN #10 tablet PRN Reason: pain Comments: Elevate the leg is much as possible. Return if you worsen or new symptoms develop. Also if you fail to improve over the next few days. I sent [facility] [place]. I am prescribing a short course of narcotic pain medication for you. These are potentially dangerous and addictive medications that should be used carefully. These medications may constipate you. Take an [id number] stool softener (docusate) twice daily with plenty of water while taking these medications. If you go 24 hours without a bowel movement, take [id number] miralax, per package instructions. Do not drink or drive while taking these medications. If you received narcotic or sedating medications while in the emergency department, do not drive for 24 hours. Store this medication in a safe, secure place and out of reach of children. It is a violation of federal law to give or sell this medication to another person or to use in a manner other than prescribed. The ED will not refill narcotic prescriptions, including prescriptions lost or stolen. To dispose of unwanted medications: 1. [facility] provides a drop box for medication in pill form only (no liquids) 8:00 am to 4:30 p.m. Saturday-Saturday in the lobby of the [facility], [address] [place] [address]. Empty pills into ziplock bag before disposal. Call [phone] for information. 2.[employer] is a free service available to all [facility] residents. Go to [email or web address] Note that many narcotic pain relievers also contain Tylenol/acetaminophen. Please ensure that your total dose of acetaminophen from all sources does not exceed 3 g (3000 mg) per day. Forms: PCP List
--- NOTE | 2023-08-13 14:50 | XRAY Report ---
PROCEDURE: Tib/Fib LT INDICATIONS: leg inj TECHNIQUE: 2 views of the tibia and fibula were acquired. COMPARISON: None. FINDINGS: Bones: No fractures or dislocations. No suspicious bony lesions. Soft tissues: No suspicious soft tissue calcifications or masses. IMPRESSION: No acute fracture. No osseous lesion. If symptoms and/or clinical suspicion for pathology continue, f urther assessment with repeat plain films, or advanced imaging (e.g., CT, MRI, or bone scan) is recom mended for further assessment. Reviewed by: Allie Cotton MD on 08/13/2023 2:49 PM PST Approved by: Allie Cotton MD on 08/13/2023 2:49 PM PST Station ID: [id number]
[2023-08-13 17:40] VITALS: BP 135/78; O2SAT 98
== END 2023-08-13 15:20 | disposition home or self-care (01) ==
LOC: ED 14:02
DX: S89.92XA Unspecified injury of left lower leg, initial encounter (principal); S81.832A Puncture wound without foreign body, left lower leg, initial encounter; V03.00XA Pedestrian on foot injured in collision with car, pick-up truck or van in nontraffic accident, initial encounter; Y92.89 Other specified places as the place of occurrence of the external cause; Z79.899 Other long term (current) drug therapy; Z91.040 Latex allergy status
CPT/HCPCS: 73590; 99283; A9270

== ENCOUNTER 2023-09-01 13:44 | Outpatient (CLI) | payer MEDICAID | END 2023-09-01 13:45 | disposition short-term general hospital (02) | LOC: EMS 13:44 | DX: R51.9 Headache, unspecified (principal); R07.81 Pleurodynia; M25.552 Pain in left hip; W10.8XXA Fall (on) (from) other stairs and steps, initial encounter; Y92.019 Unspecified place in single-family (private) house as the place of occurrence of the external cause | CPT/HCPCS: A0425; A0427; A0999 ==

== ENCOUNTER 2023-09-30 17:59 | Outpatient (CLI) | payer MEDICAID | END 2023-09-30 18:00 | disposition critical access hospital (66) | LOC: EMS 17:59 | DX: S99.912A Unspecified injury of left ankle, initial encounter (principal); S89.92XA Unspecified injury of left lower leg, initial encounter; W10.8XXA Fall (on) (from) other stairs and steps, initial encounter; Y92.008 Other place in unspecified non-institutional (private) residence as the place of occurrence of the external cause | CPT/HCPCS: A0425; A0429; A0999 ==

== ENCOUNTER 2023-09-30 18:19 | Emergency (ER) | payer MEDICAID ==
--- NOTE | 2023-09-30 19:43 | XRAY Report ---
PROCEDURE: Ankle 3+V LT INDICATIONS: fall with ankle twisted TECHNIQUE: 3 views of the ankle were acquired. COMPARISON: 08/13/2023. FINDINGS: Bones: Evaluation is limited secondary to positioning and overlying material. No fractures or disloca tions. Ankle mortise is normally aligned. No suspicious bony lesions. Soft tissues: No tibiotalar joint effusion. Achilles tendon appears normal. IMPRESSION: Limited evaluation. No definite acute fractures or dislocations are seen. If pain persists with conse rvative management, consider repeat x-ray in 10-14 days or cross-sectional imaging. Reviewed by: Barrera Stone MD on 09/30/2023 7:42 PM PST Approved by: Barrera Stone MD on 09/30/2023 7:42 PM PST Station ID: [id number]
[2023-09-30] MEDS: oxyCODONE 5 MG TABLET PO STA ×2 (20:22→22:33)
[2023-09-30] MEDS: ACETAMINOPHEN 325 MG TABLET PO STA (20:22)
--- NOTE | 2023-09-30 21:10 | XRAY Report ---
PROCEDURE: Knee 3V LT INDICATIONS: left knee pain, patella dislocation TECHNIQUE: 4 views of the knee(s) were acquired. COMPARISON: None. FINDINGS: Bones: No fractures or dislocations. No significant patellar subluxation is noted on the current elvira dy. No suspicious bony lesions. Soft tissues: No knee joint effusion. Soft tissue swelling over medial aspect of patella femoral com partment is seen. No suspicious soft tissue calcifications or masses. IMPRESSION: No acute fracture or dislocation. No significant patellar subluxation. Medial left knee soft tissue s welling. Reviewed by: Jimmy Colon MD on 09/30/2023 9:09 PM [facility] Approved by: Jimmy Colon MD on 09/30/2023 9:09 PM PST Station ID: [id number]
[2023-09-30] MEDS: HYDROmorphone 0.5 MG/0.5 ML SYRINGE IVP STA (21:14)
--- NOTE | 2023-09-30 21:29 | ED Physician Documentation ---
PD HPI LOWER EXT INJURY - Stated complaint Stated Complaint: FALL/L ANKLE INJ - Chief complaint Chief Complaint: Trauma Ext - Additional information Additional information: Patient had a recent left patella injury or it is known to frequently dislocate she is due to have surgery soon. She is walking downstairs and actually took an on step onto her right leg she feels like she felt her patella drop which caused her to fall and lose balance and rolled her left ankle. Is having hard time walking ambulating due to the pain in her left ankle and knee she has had no loss of consciousness she did not hit her head. 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: Ovarian cysts : Kidney stones HEENT: None Psych: Post traumatic stress disorder Derm: None - Past Surgical History Past Surgical History: Yes General: Cholecystectomy, Appendectomy /READING EFFICIENCY COURSE DIRECTOR: Hysterectomy, Oophrectomy - Present Medications Home Medications: Ambulatory Orders Medication Instructions Recorded Confirmed Sertraline HCl 100 mg PO DAILY 12/30/20 07/30/23 diazePAM [Valium] 10 mg PO TID 12/30/20 07/30/23 Trazodone HCl 100 mg ORAL HS 11/03/22 07/30/23 lamoTRIgine [LaMICtal] 100 mg PO DAILY 05/18/23 07/30/23 lamoTRIgine [Lamictal] 200 mg PO HS 05/18/23 07/30/23 Albuterol [Proventil Hfa] 1 - 2 puffs IH Q4HR PRN 06/25/23 07/30/23 Sucralfate [Carafate] 1 gm PO HS 06/25/23 07/30/23 HYDROcod/ACETAM 5/325 [[place] 5/325] 1 tablet PO BID PRN #10 tablet 07/30/23 Levetiracetam [Keppra] 500 mg PO BID #20 tablet 08/03/23 Oxycodone HCl/Acetaminophen 1 - 2 each PO Q6H PRN #10 tablet 08/13/23 [Percocet 5-325 mg Tablet] levoFLOXacin [Levaquin] 500 mg PO QD 7 Days #14 tablet 09/29/23 - Allergies Allergies/Adverse Reactions: Allergies Allergy/AdvReac Type Severity Reaction Status Date / Time adhesive Allergy Rash Verified 09/30/23 18:28 Cephalosporins Allergy Hives Verified 09/30/23 18:28 Iodinated Contrast Media Allergy Anaphylaxis Verified 09/30/23 18:28 latex Allergy Rash Verified 09/30/23 18:28 lidocaine Allergy Unknown Verified 09/30/23 18:28 morphine Allergy Rash Verified 09/30/23 18:28 Penicillins Allergy Hives Verified 09/30/23 18:28 ketorolac [From Toradol] AdvReac Cramps Verified 09/30/23 18:28 all antibiotic except Allergy Anaphylaxis Uncoded 09/30/23 18:28 levaquin - Social History Does the pt smoke?: No Smoking Status: Never smoker Does the pt drink ETOH?: No Does the pt have substance abuse?: No - Immunizations Immunizations are current?: Yes - POLST Patient has POLST: No PD ED PE NORMAL - Vitals Vital signs reviewed: Yes - General General: Alert and oriented X 3, No acute distress, Well developed/nourished - Derm Derm: Normal color, Warm and dry, No rash - Extremities Extremities: Other (left knee mobile patella, patellar ligament tenderness with palpation, Left ankle, full ROM, mild swllelling to Lateral malleolus no bruising) Results - Vitals Vitals: Vital Signs - 24 hr 09/30/23 09/30/23 09/30/23 18:28 20:34 22:00 Temperature 36.2 C L Heart Rate 80 85 72 Respiratory 16 13 14 Rate Blood Pressure 146/83 H O2 Saturation 99 96 95 09/30/23 22:52 Temperature Heart Rate 72 Respiratory 13 Rate Blood Pressure 126/78 O2 Saturation 98 Oxygen O2 Source Room air - Rads (name of study) Left knee x-ray Relevant Findings:: Final report received, EMP independent interpretation of test, Other (No acute fracture or dislocation no significant patellar subluxation medial left knee soft tissue swelling) Left ankle x-ray Relevant Findings:: Final report received, EMP independent interpretation of test, Other (No acute fractures or dislocations of the left ankle) PD Medical Decision Making - ED course ED course: 28-year-old female presents emergency department for left knee and left ankle pain. X-rays were completed of the left knee and it does not appear to have any subluxation of the patella some mild swelling to the medial portion of the knee, no fractures or dislocation. X-rays of the left ankle were also complete which did not reveal any fractures or dislocation. Patient was given 1 dose of IV Dilaudid here in the emergency department to help with any pain discomfort that she is experiencing Brenden wrap applied to her left ankle and crutches given to patient to help with ambulation. Patient has orthopedic surgeon arrangement already and she does to have surgery on her patella mid September and is going to follow-up with orthopedic surgeon about today's visit to the emergency department. She is told to continue to alternate between Tylenol ibuprofen for pain and discomfort that she experienced today. Told also to ice and elevate frequently to help with the pain. She is given strict ER return precautions I am confident that she did not have a knee dislocation which is why I did not order a CT scan given the mechanism of injury and the presentation of the patient's left lower extremity. Departure - Departure Disposition: 01 Home, Self Care Clinical Impression: Ankle sprain Qualifiers: Encounter type: initial encounter Involved ligament of ankle: unspecified ligament Laterality: left Qualified Code(s): S93.402A - Sprain of unspecified ligament of left ankle, initial encounter Knee sprain Qualifiers: Encounter type: initial encounter Involved ligament of knee: other ligament Laterality: left Qualified Code(s): S83.8X2A - Sprain of other specified parts of left knee, initial encounter Condition: Stable Instructions: Ankle Sprain Comments: Thank you for trusting us with your care. Follow-up with your orthopedic surgeon about your fall that you experience today. Your x-rays are not showing any fracture or dislocation of your left knee or ankle. You can alternate between Tylenol and ibuprofen for any pain and discomfort please apply ice 20 minutes at a time 1 hour off to your ankle and knee for any pain or discomfort. Please come back to the emergency department if you are experiencing any new weakness, severe worsening pain, or any other concerning symptoms. Forms: PCP List Discharge Date/Time: 09/30/23 22:45
[2023-09-30 22:57] VITALS: BP 126/78; O2SAT 98
== END 2023-09-30 22:45 | disposition home or self-care (01) ==
LOC: EDUNIT# → ED 18:19
DX: S93.402A Sprain of unspecified ligament of left ankle, initial encounter (principal); S83.8X2A Sprain of other specified parts of left knee, initial encounter; W10.9XXA Fall (on) (from) unspecified stairs and steps, initial encounter
CPT/HCPCS: 73562; 73610; 96374; 99283; 99284; A9270; J1170

== ENCOUNTER 2023-10-05 18:12 | Outpatient (CLI) | payer MEDICAID | END 2023-10-05 18:13 | disposition critical access hospital (66) | LOC: EMS 18:12 | DX: M25.572 Pain in left ankle and joints of left foot (principal); W10.9XXA Fall (on) (from) unspecified stairs and steps, initial encounter; Y93.89 Activity, other specified; Y92.098 Other place in other non-institutional residence as the place of occurrence of the external cause | CPT/HCPCS: A0425; A0429; A0999 ==

== ENCOUNTER 2023-10-05 18:32 | Emergency (ER) | payer MEDICAID ==
--- NOTE | 2023-10-05 19:59 | XRAY Report ---
PROCEDURE: Hip w/Pelvis 2-3V LT INDICATIONS: fall, hip pain TECHNIQUE: AP view of the pelvis as well as 2 additional views of the left hip were acquired COMPARISON: Correlation is made with the accompanying imaging. FINDINGS: Bones: No fractures or dislocations. No suspicious bony lesions. The hip joint spaces are well pres erved. Soft tissues: No suspicious soft tissue calcifications or masses. IMPRESSION: No acute bony abnormality. Please correlate with focal tenderness. If there is point tenderness (or other clinical concern for a fracture not seen on these plain films) then please consider a dedicated CT study or a short term fo llow up plain film series for further evaluation. Reviewed by: Deven Drew MD on 10/05/2023 6:58 PM [facility] Approved by: Deven Drew MD on 10/05/2023 6:58 PM [facility] Station ID: [id number]
--- NOTE | 2023-10-05 20:01 | XRAY Report ---
PROCEDURE: Ankle 3+V LT INDICATIONS: fall TECHNIQUE: 3 views of the ankle were acquired. COMPARISON: Correlation is made with tibia and fibula plain films, 08/13/2023 FINDINGS: Bones: No fractures or dislocations. There is mild widening of the ankle mortise seen. No suspiciou s bony lesions. The talar dome demonstrates an unremarkable appearance. Soft tissues: No tibiotalar joint effusion. Achilles tendon appears normal. IMPRESSION: Mild widening of the ankle mortise can be seen, yet without a focal acute bony abnormality on these p mukesh films. Please correlate with focal tenderness. If there is point tenderness (or other clinical concern for a fracture not seen on these plain films) then please consider a dedicated CT study or a short term fo llow up plain film series for further evaluation. Reviewed by: Deven Drew MD on 10/05/2023 6:59 PM [facility] Approved by: Deven Drew MD on 10/05/2023 6:59 PM [facility] Station ID: [id number]
--- NOTE | 2023-10-05 20:10 | ED Physician Documentation ---
PD HPI LOWER EXT INJURY - Stated complaint Stated Complaint: FALL/L HIP PX - Chief complaint Chief Complaint: Trauma Ext - History obtained from History obtained from: Patient - Additional information Additional information: BIBA. HPI from patient. Patient says that she has had a couple of months of left knee instability due to an injury earlier this year. She says she is scheduled for surgery on the left knee to address what sounds, but per her description, like recurrent patellar dislocation. She says she is scheduled to have the surgery mid October (next month). Tonight, while at home, she was walking down a flight of stairs when her knee again "gave out" (per patient), causing her to fall down approximately 10-15 steps. She complains of left ankle and left hip pain. Pain is exacerbated with movement, palpation. She denies any other injury including head injury, neck injury. She denies LOC. Note that this is patient's third [facility] ED visit within the past week. KAEL form reflects 34 ED visits to 4 different EDs over the past 12 months. Review of Systems Musculoskeletal: reports: Joint pain, Joint swelling, Pain with weight bearing. 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: Hysterectomy, Oophrectomy - Present Medications Home Medications: Ambulatory Orders Medication Instructions Recorded Confirmed Sertraline HCl 100 mg PO DAILY 12/30/20 07/30/23 diazePAM [Valium] 10 mg PO TID 12/30/20 07/30/23 Trazodone HCl 100 mg ORAL HS 11/03/22 07/30/23 lamoTRIgine [LaMICtal] 100 mg PO DAILY 05/18/23 07/30/23 lamoTRIgine [Lamictal] 200 mg PO HS 05/18/23 07/30/23 Albuterol [Proventil Hfa] 1 - 2 puffs IH Q4HR PRN 06/25/23 07/30/23 Sucralfate [Carafate] 1 gm PO HS 06/25/23 07/30/23 HYDROcod/ACETAM 5/325 [[place] 5/325] 1 tablet PO BID PRN #10 tablet 07/30/23 Levetiracetam [Keppra] 500 mg PO BID #20 tablet 08/03/23 Oxycodone HCl/Acetaminophen 1 - 2 each PO Q6H PRN #10 tablet 08/13/23 [Percocet 5-325 mg Tablet] levoFLOXacin [Levaquin] 500 mg PO QD 7 Days #14 tablet 09/29/23 - Allergies Allergies/Adverse Reactions: Allergies Allergy/AdvReac Type Severity Reaction Status Date / Time adhesive Allergy Rash Verified 09/30/23 18:28 Cephalosporins Allergy Hives Verified 09/30/23 18:28 Iodinated Contrast Media Allergy Anaphylaxis Verified 09/30/23 18:28 latex Allergy Rash Verified 09/30/23 18:28 lidocaine Allergy Unknown Verified 09/30/23 18:28 morphine Allergy Rash Verified 09/30/23 18:28 Penicillins Allergy Hives Verified 09/30/23 18:28 ketorolac [From Toradol] AdvReac Cramps Verified 09/30/23 18:28 all antibiotic except Allergy Anaphylaxis Uncoded 09/30/23 18:28 levaquin - Social History Does the pt smoke?: No Smoking Status: Never smoker Does the pt drink ETOH?: No Does the pt have substance abuse?: No - Immunizations Immunizations are current?: Yes - POLST Patient has POLST: No PD ED PE NORMAL - Vitals Vital signs reviewed: Yes - General General: Alert and oriented X 3, No acute distress, Well developed/nourished - HEENT HEENT: Atraumatic, PERRL - Neck Neck: No bony TTP - Neuro Neuro: Alert and oriented X 3, No motor deficit, No sensory deficit (LTS intact LLE), Normal speech Eye Opening: Spontaneous Motor: Obeys Commands Verbal: Oriented GCS Score: 15 PD ED PE EXPANDED - Extremities Extremities: Other (TTP left hip , lateral asepct. ROM intact left hip but pain is exacerbated with abduction, flexion. TTP left ankle, lateral>medial aspects. no gross deformity. strong DP pulse and brisk capillary refill in foot, toes. ROM limited (flexion, eversion) due to exacerbation of pain) Results - Vitals Vitals: Oxygen O2 Source Room air - Rads (name of study) left hip w/ pelvis xrays Relevant Findings:: Prelim report reviewed, See rad report left ankle xrays Relevant Findings:: Prelim report reviewed, See rad report PD Medical Decision Making - ED course Complexity details: reviewed old records, reviewed results, considered differential, d/w patient ED course: No abnormalities on left hip with pelvis x-rays. Per radiologist interpretation, there is "mild widening of the ankle mortise" on the left ankle x-rays, "yet without a focal acute bony abnormality on these plain films". In discussing results with the patient, she tells me that she recently was evaluated by her orthopedic surgeon and was told that her left ankle likely has "ligament damage" (per patient), and that she was told that the ankle might be "unstable" (again, per patient). She is provided air cast splint, crutches. She is given 10mg PO oxycodone and take-home pack percocet. She tells me she has run out of pain medication at home but is due for refill on Saturday. I note that her most recent ED visit (5 days ago), ED MD note indicates that the patient says, at that time, that she is scheduled for surgery on her knee in the middle of this month (September). When I discuss this with the patient, she says her orthopedic group had to reschedule for October. Departure - Departure Disposition: Home, Self Care Clinical Impression: Fall Qualifiers: Encounter type: initial encounter Qualified Code(s): W19.XXXA - Unspecified fall, initial encounter Left ankle sprain Qualifiers: Encounter type: initial encounter Involved ligament of ankle: unspecified ligament Qualified Code(s): S93.402A - Sprain of unspecified ligament of left ankle, initial encounter Condition: Good Instructions: ED Sprain Ankle W X Ray, ED Crutch Walking, ED Sprain Ankle Comments: There are no concerning findings on the x-rays of your pelvis and left hip. Although the left ankle x-rays do not demonstrate any evidence of broken bone/fracture, as we discussed there is a mild widening of the ankle joint which would suggest (but not specifically diagnose) injury to one or more of the ligaments that tether the ankle joint together. By your description, it sounds like your orthopedic surgeon is aware of this problem with your ankle.Further testing can help determine if there is any concerning injury to the ligaments and/or tendons of the ankle, but this can take place in the outpatient setting at the discretion of your orthopedic surgeon, if necessary. In the meantime, I recommend keeping the ankle in the provided splint and minimizing weight-bearing using the provided crutches. Forms: PCP List Discharge Date/Time: 10/05/23 20:53
[2023-10-05] MEDS: oxyCODONE/ACET 5/325 Prepack 4 PO STA (20:37)
[2023-10-05] MEDS: oxyCODONE 5 MG TABLET PO STA (20:37)
[2023-10-05 20:59] VITALS: BP 118/86; O2SAT 98
== END 2023-10-05 20:53 | disposition home or self-care (01) ==
LOC: EDUNIT# → ED 18:32
DX: S93.402A Sprain of unspecified ligament of left ankle, initial encounter (principal); W10.9XXA Fall (on) (from) unspecified stairs and steps, initial encounter; Y92.009 Unspecified place in unspecified non-institutional (private) residence as the place of occurrence of the external cause
CPT/HCPCS: 73502; 73610; 99283; 99284; A9270

== ENCOUNTER 2023-10-16 17:54 | Outpatient (CLI) | payer MEDICAID | END 2023-10-16 17:55 | disposition critical access hospital (66) | LOC: EMS 17:54 | DX: S01.111A Laceration without foreign body of right eyelid and periocular area, initial encounter (principal); S49.91XA Unspecified injury of right shoulder and upper arm, initial encounter; S99.922A Unspecified injury of left foot, initial encounter; M54.2 Cervicalgia; W10.8XXA Fall (on) (from) other stairs and steps, initial encounter; Y92.008 Other place in unspecified non-institutional (private) residence as the place of occurrence of the external cause | CPT/HCPCS: A0425; A0427; A0999 ==

== ENCOUNTER 2023-10-16 18:13 | Emergency (ER) | payer MEDICAID ==
--- NOTE | 2023-10-16 18:36 | ED Physician Documentation ---
PD HPI HEAD INJURY - Stated complaint Stated Complaint: FALL/RT KNEE PX - Chief complaint Chief Complaint: Trauma Hd/Nk - Additional information Additional information: 28-year-old female well-known to our department presents emergency department for fall from 3-4 stairs after her knee gave out her. According to her teen daughter patient lost consciousness after hitting head for about 5 minutes. This is unfortunately patient's 10th ER visit since July 2023 for multiple falling downstairs and other falls and traumas. Patient reports that she feels safe at home and is not concerned about being a victim of domestic violence. She is brought in via EMS and complains of left knee pain, left ankle pain right shoulder pain neck pain and head pain.She is not any blood thinners she said no seizure-like activity and she has no nausea or vomiting. 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: Ovarian cysts : Kidney stones HEENT: None Psych: Post traumatic stress disorder Musculoskeletal: None Derm: None - Past Surgical History Past Surgical History: Yes General: Cholecystectomy, Appendectomy /SPECIAL PROJECTS MANAGER: Hysterectomy, Oophrectomy - Present Medications Home Medications: Ambulatory Orders Medication Instructions Recorded Confirmed Sertraline HCl 100 mg PO DAILY 12/30/20 07/30/23 diazePAM [Valium] 10 mg PO TID 12/30/20 07/30/23 Trazodone HCl 100 mg ORAL HS 11/03/22 07/30/23 lamoTRIgine [LaMICtal] 100 mg PO DAILY 05/18/23 07/30/23 lamoTRIgine [Lamictal] 200 mg PO HS 05/18/23 07/30/23 Albuterol [Proventil Hfa] 1 - 2 puffs IH Q4HR PRN 06/25/23 07/30/23 Sucralfate [Carafate] 1 gm PO HS 06/25/23 07/30/23 HYDROcod/ACETAM 5/325 [[place] 5/325] 1 tablet PO BID PRN #10 tablet 07/30/23 Levetiracetam [Keppra] 500 mg PO BID #20 tablet 08/03/23 Oxycodone HCl/Acetaminophen 1 - 2 each PO Q6H PRN #10 tablet 01/16/24 [Percocet 5-325 mg Tablet] levoFLOXacin [Levaquin] 500 mg PO QD 7 Days #14 tablet 09/29/23 - Allergies Allergies/Adverse Reactions: Allergies Allergy/AdvReac Type Severity Reaction Status Date / Time adhesive Allergy Rash Verified 09/30/23 18:28 Cephalosporins Allergy Hives Verified 09/30/23 18:28 Iodinated Contrast Media Allergy Anaphylaxis Verified 09/30/23 18:28 latex Allergy Rash Verified 09/30/23 18:28 lidocaine Allergy Unknown Verified 09/30/23 18:28 morphine Allergy Rash Verified 09/30/23 18:28 Penicillins Allergy Hives Verified 09/30/23 18:28 ketorolac [From Toradol] AdvReac Cramps Verified 09/30/23 18:28 all antibiotic except Allergy Anaphylaxis Uncoded 09/30/23 18:28 levaquin - Social History Does the pt smoke?: No Smoking Status: Never smoker Does the pt drink ETOH?: No Does the pt have substance abuse?: No - Immunizations Immunizations are current?: Yes - POLST Patient has POLST: No PD ED PE NORMAL - Vitals Vital signs reviewed: Yes - General General: Alert and oriented X 3, Well developed/nourished - HEENT HEENT: PERRL, EOMI, Moist mucous membranes, Other (Superficial right eyebrow abrasion) - Neck Neck: No bony TTP - Cardiac Cardiac: RRR, No murmur, No gallop, Strong equal pulses - Respiratory Respiratory: No respiratory distress, Clear bilaterally - Abdomen Abdomen: Normal bowel sounds, Soft, Non tender, Non distended, No organomegaly - Back Back: No CVA TTP - Derm Derm: Normal color, Warm and dry, No rash, Other (Superficial abrasion to right eyebrow bleeding is controlled) - Extremities Extremities: No deformity, No edema - Free text exam Free text exam: Right shoulder: Full range of motion to right shoulder pain to the anterior glenohumeral joint region with palpation. Left knee: Old scar, patella appears to be in anatomic correct position able to flex and extend left knee there is some tenderness with flexion extension of the left knee, no medial or lateral joint space tenderness, no instability. Left ankle: Able to flex and extend without difficulty tenderness to the lateral malleolus. No swelling no ecchymosis. Neck and back are without deformity, external skin changes, or signs of trauma. Curvature of the cervical, thoracic, and lumbar spine are within normal limits. Bony features of the shoulders and hips are of equal height bilaterally. No clonus is noted. 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 Dorsi/plantar flexion is normal bilaterally. Results - Vitals Vitals: Vital Signs - 24 hr 10/16/23 10/16/23 18:20 20:24 Temperature 36.1 C L Heart Rate 67 58 L Respiratory 22 16 Rate Blood Pressure 134/78 H 117/79 O2 Saturation 98 97 Oxygen O2 Source Room air - Labs Labs: Laboratory Tests 10/16/23 10/16/23 18:56 18:56 WBC 5.9 RBC 4.02 L Hgb 12.4 Hct 36.2 L MCV 90.0 MCH 30.8 MCHC 34.3 RDW 12.8 Plt Count 237 MPV 9.5 Neut # (Auto) 3.6 Lymph # (Auto) 1.8 [place] # (Auto) 0.4 Eos # (Auto) 0.0 Baso # (Auto) 0.0 Absolute Nucleated RBC 0.00 Nucleated RBC % 0.0 Sodium 140 Potassium 4.0 Chloride 107 Carbon Dioxide 28 Anion Gap 5.0 L BUN 10 Creatinine 0.9 Estimated GFR (MDRD) 74 L Glucose 91 Calcium 9.1 Total Bilirubin 0.5 AST 16 ALT 17 Alkaline Phosphatase 44 Total Protein 6.4 Albumin 3.8 Globulin 2.6 Albumin/Globulin Ratio 1.5 Serum HCG, Qual NEGATIVE - Rads (name of study) CT head without Relevant Findings:: Final report received, EMP independent interpretation of test, Other (No intracranial hemorrhages or abnormalities) CT cervical spine without Relevant Findings:: Final report received, EMP independent interpretation of test, Other (No acute bony abnormalities) 2 view right shoulder x-rays Relevant Findings:: Final report received, EMP independent interpretation of test, Other (No dislocation no fractures) 2 view left knee x-rays Relevant Findings:: Final report received, EMP independent interpretation of test, Other (No acute bony abnormalities) 2 view left ankle x-rays. Relevant Findings:: Final report received, EMP independent interpretation of test, Other (No acute bony fractures or abnormalities) PD Medical Decision Making - ED course ED course: 28-year-old female presents emergency department after falling down 3-5 stairs. A thorough and complete workup was done as patient reports that she did have loss of consciousness for about 5 minutes. Patient has had multiple ER visits for this same complaint. CT head and neck were complete without any acute abnormalities or findings. X-rays were completed of the left ankle, left knee, right shoulder and also there were no acute bony abnormalities or fractures. She is given Haldol and hydromorphone for pain control which did work. Patient was informed that she needs to find some other method to getting up and down stairs as I am worried for her safety with these repeat falling down stairs due to her left knee giving out on her. I do asked the patient privacy if she does feel safe at home or if anyone is injuring her and she says that she feels safe at home the only reason she is following is because her left knee continues to give out on her. Patient says that she has surgery on November 05 for her left knee. The plan going home is that patient will not go up or down stairs alone anymore her niece lives with her full-time and says that she is able to help her with ambulating up and down stairs moving forward to prevent this from continuing to recur. Patient was told to follow-up with primary care provider she has chronic pain medications at home she is on a chronic pain medication management plan so I did not prescribe her any additional opioids. She is told to alternate between Tylenol and ibuprofen to apply ice to sore areas. She has a superficial abrasion to her right eyebrow that does not require any repair. At this point in time she is safe for discharge there is no further emergent workup indicated at this time. Departure - Departure Disposition: 01 Home, Self Care Clinical Impression: Fall down stairs Qualifiers: Encounter type: initial encounter Qualified Code(s): W10.8XXA - Fall (on) (from) other stairs and steps, initial encounter Instructions: Falls Risks Prevent, ED Prevention Fall Comments: Thank you for trusting us with your care, we have evaluated you After falling down multiple stairs. We have completed a CT scan of your head and neck and we are not seeing any acute abnormalities or findings. We have also completed an x-ray of your right shoulder, left knee, left ankle and again we are not seeing any acute abnormalities or findings. As we discussed I strongly discourage you from going up and down the stairs anymore as you have had multiple ER visits for falling downstairsIf you have to go upstairs make sure that your niece is with you at all times that you guys can come up with some sort of schedule where you are both home at the same time to shower To prevent from this recurring issue. You can apply ice to any sore areas for 20 minutes at a time 1 hour off and alternate between Tylenol and ibuprofen for any pain or discomfort. Please come back to the emergency department for having any new lethargy, confusion, one- sided weakness on your body, or any other concerning symptoms. Wishing you a speedy recovery and all the best after your surgery on November 05. Forms: PCP List
[2023-10-16 19:01] LABS: BASOPHILS % (AUTO) 0.3 %; HCT - HEMATOCRIT 36.2 % (37.0-47.0); HGB - HEMOGLOBIN 12.4 g/dL (12.0-16.0); LYMPHOCYTES # (AUTO) 1.8 10^3/uL (1.5-3.5); MEAN CORPUSCULAR HEMOGLOBIN 30.8 pg (27.0-31.0); MEAN CORPUSCULAR HGB CONC 34.3 g/dL (32.0-36.0); MEAN PLATELET VOLUME 9.5 fL (7.9-10.8); MONOCYTES # (AUTO) 0.4 10^3/uL (0.0-1.0); MONOCYTES % (AUTO) 7.3 %; NEUTROPHILS # (AUTO) 3.6 10^3/uL (1.5-6.6); NEUTROPHILS % (AUTO) 62.1 %; PLT - PLATELET COUNT 237 10^3/uL (130-450); RED BLOOD COUNT 4.02 10^6/uL (4.20-5.40); RED CELL DISTRIBUTION WIDTH 12.8 % (12.0-15.0); WHITE BLOOD COUNT 5.9 x10^3/uL (4.8-10.8)
[2023-10-16 19:19] LABS: ALBUMIN 3.8 g/dL (3.2-5.5); ALBUMIN/GLOBULIN RATIO 1.5 (1.0-2.2); ALKALINE PHOSPHATASE 44 IU/L (42-121); ALT ALANINE AMINOTRANSFERASE 17 IU/L (10-60); AST ASPARTATE AMINOTRANSFERASE 16 IU/L (10-42); BILIRUBIN,TOTAL 0.5 mg/dL (0.2-1.0); BUN - BLOOD UREA NITROGEN 10 mg/dL (6-20); CALCIUM 9.1 mg/dL (8.5-10.3); CARBON DIOXIDE - CO2 28 mmol/L (21-32); CHLORIDE 107 mmol/L (101-111); CREATININE 0.9 mg/dL (0.6-1.3); GFR - MDRD 74 (>89); GLUCOSE 91 mg/dL (74-104); SODIUM 140 mmol/L (135-145); TOTAL PROTEIN 6.4 g/dL (6.4-8.9)
[2023-10-16] MEDS: HALOPERIDOL 5 MG/ML VIAL IVP STA (19:20)
[2023-10-16 19:23] LABS: HCG,QUALITATIVE BLOOD NEGATIVE
--- NOTE | 2023-10-16 19:23 | XRAY Report ---
PROCEDURE: Ankle 3+V LT INDICATIONS: fall down stairs TECHNIQUE: 3 views of the ankle were acquired. COMPARISON: None. FINDINGS: Bones: No fractures or dislocations. Ankle mortise is normally aligned. No suspicious bony lesions . Soft tissues: No tibiotalar joint effusion. Achilles tendon appears normal. IMPRESSION: No acute bony abnormality. If there remains a high clinical concern for fracture, including inability to bear weight, consider cross-sectional imaging to exclude an occult fracture. Reviewed by: Krishna Smart MD on 10/16/2023 7:22 PM PDT Approved by: Krishna Smart MD on 10/16/2023 7:22 PM PDT Station ID: [id number]
--- NOTE | 2023-10-16 19:24 | XRAY Report ---
PROCEDURE: Shoulder 2+V RT INDICATIONS: right shoulder pain after fall down 5 stairs TECHNIQUE: 3 views of the shoulder were acquired. COMPARISON: None. FINDINGS: Bones: No fractures or dislocations. No suspicious bony lesions. Visualized ribs appear intact. Soft tissues: No suspicious soft tissue calcifications. The visualized lungs are within normal limi ts. IMPRESSION: No acute bony abnormality. Reviewed by: Krishna Smart MD on 10/16/2023 7:23 PM PDT Approved by: Krishna Smart MD on 10/16/2023 7:23 PM PDT Station ID: [id number]
--- NOTE | 2023-10-16 19:24 | XRAY Report ---
PROCEDURE: Knee 2V LT INDICATIONS: left knee pain after fall down staors TECHNIQUE: 2 views of the knee(s) were acquired. COMPARISON: None. FINDINGS: Bones: No fractures or dislocations. No suspicious bony lesions. Soft tissues: No knee joint effusion. No suspicious soft tissue calcifications or masses. IMPRESSION: No acute bony abnormality. If there remains a high clinical concern for fracture, including inability to bear weight, consider cross-sectional imaging to exclude an occult fracture. Reviewed by: Krishna Smart MD on 10/16/2023 7:22 PM PDT Approved by: Krishna Smart MD on 10/16/2023 7:22 PM PDT Station ID: [id number]
--- NOTE | 2023-10-16 20:12 | CT Report ---
PROCEDURE: Head WO INDICATIONS: fall down 6 stairs with loss of consciousness TECHNIQUE: Noncontrast 4.5 mm thick angled axial sections acquired from the foramen magnum to the vertex. For r adiation dose reduction, the following was used: automated exposure control, adjustment of mA and/or kV according to patient size. COMPARISON: Head CT 09/01/2023. FINDINGS: Image quality: Excellent. CSF spaces: Basal cisterns are patent. No extra-axial fluid collections. Ventricles are normal in size and shape. Brain: No midline shift. No intracranial masses or hemorrhage. [place]-white matter interface is norm al. Skull and face: Calvarium and visualized facial bones are intact, without suspicious lesions. Sinuses: Visualized sinuses and mastoids are clear. IMPRESSION: No acute intracranial hemorrhage. No interval change seen. Reviewed by: Dewayne Matta MD on 10/16/2023 8:10 PM PDT Approved by: Dewayne Matta MD on 10/16/2023 8:10 PM PDT Station ID: [id number]
--- NOTE | 2023-10-16 20:14 | CT Report ---
PROCEDURE: Cervical Spine WO INDICATIONS: fall down 5 stairs with loss of consciousness TECHNIQUE: Noncontrast 3 mm thick sections acquired from the skull base to the T4 level. Sagittal and coronal r eformats were then constructed. For radiation dose reduction, the following was used: automated exp osure control, adjustment of mA and/or kV according to patient size. COMPARISON: CT cervical spine 09/01/2023. FINDINGS: Image quality: Excellent. Bones: No fractures or dislocations. Visualized superior ribs are intact. Soft tissues: Prevertebral soft tissues are normal in thickness. No paravertebral hematomas. No ap ical pneumothoraces. Mucosal thickening at the sphenoid sinuses. IMPRESSION: No acute osseous abnormality. Reviewed by: Dewayne Matta MD on 10/16/2023 8:13 PM PDT Approved by: Dewayne Matta MD on 10/16/2023 8:13 PM PDT Station ID: [id number]
[2023-10-16] MEDS: HYDROmorphone 0.5 MG/0.5 ML SYRINGE IVP STA (20:27)
[2023-10-16 20:35] VITALS: BP 117/79; O2SAT 97
== END 2023-10-16 20:44 | disposition home or self-care (01) ==
LOC: EDUNIT# → ED 18:13
DX: S00.211A Abrasion of right eyelid and periocular area, initial encounter (principal); W10.8XXA Fall (on) (from) other stairs and steps, initial encounter; Y92.009 Unspecified place in unspecified non-institutional (private) residence as the place of occurrence of the external cause
CPT/HCPCS: 36415; 70450; 72125; 73030; 73560; 73610; 80053; 84703; 85025; 96374; 96375; 99284; 99285; J1170

== ENCOUNTER 2023-11-13 16:02 | Emergency (ER) | payer MEDICAID ==
--- NOTE | 2023-11-13 16:11 | ED Physician Documentation ---
PD HPI CHEST PAIN - Stated complaint Stated Complaint: CP - Additional information Additional information: This is a 28-year-old female who presents with chest pain. The patient had been having several days of chest pain and was going to come into the ER with her mother but as she was walking out to the car she had a syncopal episode. She was lowered down to the ground by her mother, did not hit her head. EMS was called and on arrival she had stable vital signs, sinus rhythm per telemetry, monitor. An IV was established and patient was brought into the ED. The patient tells me that on 11/06/2023 she had an meniscal surgery on the left knee. She subsequently started to develop some chest pain. She has also noted some lower extremity pitting edema in the left leg.She was seen at [facility] 3 days ago and she states that there was concern for possible PE but given her allergy to contrast she was told to follow-up the next day for a nuclear study which she did. She tells me that the nuclear study indicated that she had a pulmonary embolus and she was given a dose of Lovenox but was not sent home on any anticoagulation. She was told to take aspirin but she states she has adverse reaction to aspirin. She continues to have periods of chest pain and shortness of breath. She is also having left chest pain periodically. She has no history of heart disease to her knowledge, denies any exertional symptoms, no shortness of breath, no numbness or tingling or focal weakness.She states she is no longer on any pain medication. Reviewed records from [facility] the patient was seen there on 11/10 for a VQ scan after being seen at the ED the prior day with an elevated D-dimer. The patient was unable to do a CTA given anaphylactic allergy to iodine contrast, she had an ultrasound of the left leg which was negative, she returned to the ED on 11/10 to have a VQ scan but was also continuing to feel shortness of breath, chest pain and heart palpitations, her vital signs were stable, she is oxygenating well on room air, heart rate normal, her labs were generally reassuring including CMP, CBC, her high-sensitivity troponin was negative, magnesium 1.7, BNP 59, her chest x-ray showed mild central vascular prominence possibly congestion likely attenuated by low lung volumes a correlation with BNP is recommended, a VQ scan shows very low probability for pulmonary embolism, the patient was noted to have PVCs occasionally on the heart monitor but no V. tach, and in general symptoms improved. The patient was discharged home with stable vital signs. Review of Systems Constitutional: reports: Reviewed and negative Eyes: reports: Reviewed and negative Ears: reports: Reviewed and negative Nose: reports: Reviewed and negative Throat: reports: Reviewed and negative Cardiac: reports: Chest pain / pressure, Palpitations, Pedal edema, Calf pain Respiratory: reports: Reviewed and negative GI: reports: Reviewed and negative : reports: Reviewed and negative Skin: reports: Reviewed and negative Musculoskeletal: reports: Extremity pain, Extremity swelling Neurologic: reports: Reviewed and negative Psychiatric: reports: Reviewed and negative Endocrine: reports: Reviewed and negative PD PAST MEDICAL HISTORY - Past Medical History Past Medical History: Yes Cardiovascular: None Respiratory: None Neuro: Seizure disorder, Other Endocrine/Autoimmune: None GI: GERD, 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: Ovarian cysts : Kidney stones HEENT: None Psych: Post traumatic stress disorder Musculoskeletal: None Derm: None - Past Surgical History Past Surgical History: Yes General: Cholecystectomy, Appendectomy /ACCOUNTS ADMINISTRATOR: Hysterectomy, Oophrectomy - Present Medications Home Medications: Ambulatory Orders Medication Instructions Recorded Confirmed Sertraline HCl 100 mg PO DAILY 12/30/20 11/13/23 diazePAM [Valium] 10 mg PO TID 12/30/20 11/13/23 Trazodone HCl 100 mg ORAL HS 11/03/22 11/13/23 lamoTRIgine [LaMICtal] 100 mg PO DAILY 05/18/23 11/13/23 lamoTRIgine [Lamictal] 200 mg PO HS 05/18/23 11/13/23 Albuterol [Proventil Hfa] 1 - 2 puffs IH Q4HR PRN 06/25/23 11/13/23 Sucralfate [Carafate] 1 gm PO HS 06/25/23 11/13/23 HYDROcod/ACETAM 5/325 [[place] 5/325] 1 tablet PO BID PRN #10 tablet 07/30/23 11/13/23 Levetiracetam [Keppra] 500 mg PO BID #20 tablet 08/03/23 11/13/23 Oxycodone HCl/Acetaminophen 1 - 2 each PO Q6H PRN #10 tablet 08/13/23 11/13/23 [Percocet 5-325 mg Tablet] levoFLOXacin [Levaquin] 500 mg PO QD 7 Days #14 tablet 09/29/23 11/13/23 - Allergies Allergies/Adverse Reactions: Allergies Allergy/AdvReac Type Severity Reaction Status Date / Time adhesive Allergy Rash Verified 11/13/23 17:29 Cephalosporins Allergy Hives Verified 11/13/23 17:29 Iodinated Contrast Media Allergy Anaphylaxis Verified 11/13/23 17:29 latex Allergy Rash Verified 11/13/23 17:29 lidocaine Allergy Unknown Verified 11/13/23 17:29 morphine Allergy Rash Verified 11/13/23 17:29 Penicillins Allergy Hives Verified 11/13/23 17:29 ketorolac [From Toradol] AdvReac Cramps Verified 11/13/23 17:29 all antibiotic except Allergy Anaphylaxis Uncoded 11/13/23 17:29 levaquin - Social History Does the pt smoke?: No Smoking Status: Never smoker Does the pt drink ETOH?: No Does the pt have substance abuse?: No - Immunizations Immunizations are current?: Yes - POLST Patient has POLST: No PD ED PE NORMAL - Vitals Vital signs reviewed: Yes - General General: Alert and oriented X 3, No acute distress, Well developed/nourished - HEENT HEENT: Atraumatic, Moist mucous membranes - Neck Neck: Supple, no meningeal sign, No JVD - Cardiac Cardiac: RRR, No murmur - Respiratory Respiratory: No respiratory distress, Clear bilaterally - Abdomen Abdomen: Normal bowel sounds, Soft - Derm Derm: Normal color, Warm and dry - Extremities Extremities: Other (left knee Well-healing arthroscopic sites, mild to surrounding swelling, and mild tenderness. No calf pain or fullness, no pitting edema noted at this time.) - Neuro Neuro: Alert and oriented X 3 Eye Opening: Spontaneous Motor: Obeys Commands Verbal: Oriented GCS Score: 15 - Psych Psych: Normal mood Results - Vitals Vitals: Vital Signs - 24 hr 11/13/23 16:08 Temperature 36.9 C Heart Rate 82 Respiratory 15 Rate Blood Pressure 125/79 O2 Saturation 99 Oxygen O2 Source Room air - EKG (time done) No standard instances EKG releavant findings:: EKG personally interpreted by author of this note. Relevant findings are: Rate: Rate (enter#) (83) Rhythm: NSR [place]: Normal Intervals: Normal MI QRS: Normal Ischemia: Normal ST segments Computer interpretation: Agree with computer - Labs Labs: Laboratory Tests 11/13/23 11/13/23 11/13/23 16:31 16:31 16:48 WBC 5.5 RBC 4.10 L Hgb 12.6 Hct 36.2 L MCV 88.3 MCH 30.7 MCHC 34.8 RDW 12.9 Plt Count 245 MPV 9.3 Neut # (Auto) 3.5 Lymph # (Auto) 1.6 [place] # (Auto) 0.4 Eos # (Auto) 0.0 Baso # (Auto) 0.0 Absolute Nucleated RBC 0.00 Nucleated RBC % 0.0 D-Dimer < 200.0 L Sodium 138 Potassium 4.1 Chloride 105 Carbon Dioxide 25 Anion Gap 8.0 BUN 9 Creatinine 0.7 Estimated GFR (MDRD) 98 Glucose 102 Calcium 9.6 Total Bilirubin 0.5 AST 26 ALT 31 Alkaline Phosphatase 47 Troponin I High Sens < 2.3 L Total Protein 6.6 Albumin 4.0 Globulin 2.6 Albumin/Globulin Ratio 1.5 Lipase 16 - Rads (name of study) No standard instances Relevant Findings:: Final report received PD Medical Decision Making - ED course Complexity details: reviewed old records, reviewed results, re-evaluated patient, considered differential, d/w patient ED course: This is a 28-year-old female with past medical history is as above who presented with ongoing chest pain and shortness of breath as well as a syncopal episode as described in HPI. The patient has had similar symptoms in the past and was most recently seen at [facility] on 11/09 and 11/10 at which time she had a very comprehensive workup including negative troponin, normal EKG, negative VQ scan, and additional information is listed above. Low suspicion for ACS or PE however exam was repeated today including CBC, CMP, troponin all of which were reassuring, her D-dimer here is negative and that coupled with a recent VQ scan and negative ultrasound essentially rule out PE. Patient's EKG here is nonischemic, high-sensitivity troponin is negative, and she has been stable vitally per exam here. I do believe that she is stable for discharge home at this time, I have encouraged her to follow-up with cardiology on outpatient basis to have further evaluation of these recurrent syncopal episodes that do not seem to be related toAcute coronary syndrome, PE, orthostasis,And There is no sign of dehydration, no sign of acute infection, and no other concerning fin dings on physical exam today. The patient may have vasovagal syncope from pain response. I have encouraged her to get up slowly from laying to seated position, walk with assistance until symptoms improve, and follow-up with your primary doctor for this issue. Return precautions reviewed in detail with the patient. She was discharged home with her sister. All questions were answered. Departure - Departure Disposition: 01 Home, Self Care Clinical Impression: Syncope and collapse Condition: Good Instructions: ED Fainting Unkn Cause, ED Dizziness Syncope Fainting W Pre Comments: Thank you for visiting [facility] emergency department. Your workup today was quite reassuring, your heart labs are good, and your D-dimer which is A test we use to evaluate for possible blood clots, was negative. Your EKG here shows normal sinus rhythm, and your chest x-ray is normal. I have reviewed your records from the [facility] emergency department as well and those also were Also reassuring, it does not appear that you have had a blood clot and your labs there were largely stable. It is not clear what is causing you to have these episodes where you pass out, it may be a pain response, or from decreased mobility. I would like you to follow-up with your primary doctor and consider referral to cardiology for Zio patch or additional evaluation such as an echocardiogram if indicated. If you develop worsening symptoms, please return to the ER. Forms: PCP List
[2023-11-13 16:37] LABS: BASOPHILS % (AUTO) 0.2 %; HCT - HEMATOCRIT 36.2 % (37.0-47.0); HGB - HEMOGLOBIN 12.6 g/dL (12.0-16.0); LYMPHOCYTES # (AUTO) 1.6 10^3/uL (1.5-3.5); LYMPHOCYTES % (AUTO) 29.3 %; MEAN CORPUSCULAR HEMOGLOBIN 30.7 pg (27.0-31.0); MEAN CORPUSCULAR HGB CONC 34.8 g/dL (32.0-36.0); MEAN CORPUSCULAR VOLUME 88.3 fL (81.0-99.0); MEAN PLATELET VOLUME 9.3 fL (7.9-10.8); MONOCYTES # (AUTO) 0.4 10^3/uL (0.0-1.0); MONOCYTES % (AUTO) 7.4 %; NEUTROPHILS # (AUTO) 3.5 10^3/uL (1.5-6.6); NEUTROPHILS % (AUTO) 62.7 %; PLT - PLATELET COUNT 245 10^3/uL (130-450); RED CELL DISTRIBUTION WIDTH 12.9 % (12.0-15.0); WHITE BLOOD COUNT 5.5 x10^3/uL (4.8-10.8)
[2023-11-13 16:55] LABS: ALBUMIN/GLOBULIN RATIO 1.5 (1.0-2.2); ALKALINE PHOSPHATASE 47 IU/L (42-121); ALT ALANINE AMINOTRANSFERASE 31 IU/L (10-60); AST ASPARTATE AMINOTRANSFERASE 26 IU/L (10-42); BILIRUBIN,TOTAL 0.5 mg/dL (0.2-1.0); BUN - BLOOD UREA NITROGEN 9 mg/dL (6-20); CALCIUM 9.6 mg/dL (8.5-10.3); CARBON DIOXIDE - CO2 25 mmol/L (21-32); CHLORIDE 105 mmol/L (101-111); CREATININE 0.7 mg/dL (0.6-1.3); GFR - MDRD 98 (>89); GLUCOSE 102 mg/dL (74-104); LIPASE 16 U/L (11-82); POTASSIUM 4.1 mmol/L (3.5-4.5); SODIUM 138 mmol/L (135-145); TOTAL PROTEIN 6.6 g/dL (6.4-8.9)
[2023-11-13 16:57] LABS: TROPONIN I HIGH SENSITIVITY < 2.3 ng/L (2.3-14.8)
[2023-11-13 18:36] VITALS: BP 91/62; O2SAT 98
--- NOTE | 2023-11-14 08:32 | XRAY Report ---
PROCEDURE: Chest 1V INDICATIONS: chest pain TECHNIQUE: One view of the chest was acquired. COMPARISON: 05/18/2023. FINDINGS: Surgical changes and devices: None. Lungs and pleura: No pleural effusions or pneumothorax. Submaximal inspiration. No gross infiltrates . Mediastinum: Mediastinal contours appear normal. Heart size is normal. Bones and chest wall: No suspicious bony lesions. Overlying soft tissues appear unremarkable. IMPRESSION: No gross pulmonary infiltrates Reviewed by: Bar Campbell MD on 11/14/2023 8:31 AM PDT Approved by: Bar Campbell MD on 11/14/2023 8:31 AM PDT Station ID: [id number]
== END 2023-11-13 18:34 | disposition home or self-care (01) ==
LOC: EDUNIT# → ED 16:02
DX: R55 Syncope and collapse (principal); R07.9 Chest pain, unspecified; G40.909 Epilepsy, unspecified, not intractable, without status epilepticus; Z87.442 Personal history of urinary calculi
CPT/HCPCS: 36415; 80053; 83690; 84484; 85025; 85379; 93005; 99284

== ENCOUNTER 2023-12-22 16:33 | Emergency (ER) | payer MEDICAID ==
[2023-12-22 16:46] VITALS: BP 153/84; O2SAT 100
--- NOTE | 2023-12-22 16:54 | ED Physician Documentation ---
PD HPI LOWER EXT INJURY - Stated complaint Stated Complaint: L KNEE PX - Chief complaint Chief Complaint: Trauma Ext - History obtained from History obtained from: Patient - Additional information Additional information: About a month and a half ago she had a orthopedic surgery on her left knee which sounds like a meniscus repair and some sort of ligamentous surgery. She had a box fall on the knee today and then her son fell on it 2 and has more severe pain. No other injuries. No possibility of . 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: Hysterectomy, Oophrectomy - Present Medications Home Medications: Ambulatory Orders Medication Instructions Recorded Confirmed Sertraline HCl 100 mg PO DAILY 12/30/20 11/13/23 diazePAM [Valium] 10 mg PO TID 12/30/20 11/13/23 Trazodone HCl 100 mg ORAL HS 11/03/22 11/13/23 lamoTRIgine [LaMICtal] 100 mg PO DAILY 05/18/23 11/13/23 lamoTRIgine [Lamictal] 200 mg PO HS 05/18/23 11/13/23 Albuterol [Proventil Hfa] 1 - 2 puffs IH Q4HR PRN 06/25/23 11/13/23 Sucralfate [Carafate] 1 gm PO HS 06/25/23 11/13/23 HYDROcod/ACETAM 5/325 [[place] 5/325] 1 tablet PO BID PRN #10 tablet 07/30/23 11/13/23 Levetiracetam [Keppra] 500 mg PO BID #20 tablet 08/03/23 11/13/23 Oxycodone HCl/Acetaminophen 1 - 2 each PO Q6H PRN #10 tablet 08/13/23 11/13/23 [Percocet 5-325 mg Tablet] levoFLOXacin [Levaquin] 500 mg PO QD 7 Days #14 tablet 09/29/23 11/13/23 - Allergies Allergies/Adverse Reactions: Allergies Allergy/AdvReac Type Severity Reaction Status Date / Time adhesive Allergy Rash Verified 12/22/23 16:43 Cephalosporins Allergy Hives Verified 12/22/23 16:43 Iodinated Contrast Media Allergy Anaphylaxis Verified 12/22/23 16:43 latex Allergy Rash Verified 12/22/23 16:43 lidocaine Allergy Unknown Verified 12/22/23 16:43 morphine Allergy Rash Verified 12/22/23 16:43 Penicillins Allergy Hives Verified 12/22/23 16:43 ketorolac [From Toradol] AdvReac Cramps Verified 12/22/23 16:43 all antibiotic except Allergy Anaphylaxis Uncoded 12/22/23 16:43 levaquin - Social History Does the pt smoke?: No Smoking Status: Never smoker Does the pt drink ETOH?: No Does the pt have substance abuse?: No - Immunizations Immunizations are current?: Yes - POLST Patient has POLST: No PD ED PE NORMAL - Vitals Vital signs reviewed: Yes - General General: Alert and oriented X 3, No acute distress - Extremities Extremities: Other (Surgical incisions over the left knee are well-healed. There is diffuse tenderness. No obvious effusion. No deformity. Ligamentous testing is all painful but intact ACL, PCL, LCL, MCL. Positive grind testing.) - Neuro Neuro: Alert and oriented X 3, Normal speech Results - Vitals Vitals: Vital Signs - 24 hr 12/22/23 16:36 Temperature 36.5 C Heart Rate 92 Respiratory 18 Rate Blood Pressure 153/84 H O2 Saturation 100 Oxygen O2 Source Room air PD Medical Decision Making - ED course ED course: She reinjured her left knee which she recently had surgery on. Does not seem like she has a significant internal derangement but hard to tell. X-rays looking okay. Placed in a knee immobilizer and she has follow-up with her orthopedic surgeons already in a few days. She is in chronic pain management with a pain contract so no prescription but did get for extra oxycodone here. Departure - Departure Disposition: Home, Self Care Clinical Impression: Left knee injury Condition: Good Record reviewed to determine appropriate education?: Yes Instructions: ED Sprain Knee Comments: Follow-up with your orthopedic surgeons this coming week as scheduled. Let them know about the acute injury. Also call your usual pain management contract prescriber on Saturday to let them know that you have a new injury. Return for new or worsening symptoms. You can ice it and wear the knee splint, but you do not have to wear that if you are in bed, showering, or just sitting on the couch. Forms: PCP List
[2023-12-22] MEDS: IBUPROFEN 800 MG TABLET PO STA (17:00)
[2023-12-22] MEDS: oxyCODONE 5 MG TABLET PO STA (17:01)
[2023-12-22] MEDS: oxyCODONE/ACET 5/325 Prepack 4 PO STA (17:17)
--- NOTE | 2023-12-22 17:54 | XRAY Report ---
PROCEDURE: Knee 4+V LT INDICATIONS: Trauma TECHNIQUE: 4 views of the knee(s) were acquired. COMPARISON: None. FINDINGS: Bones: No fractures or dislocations. No suspicious bony lesions. Soft tissues: No knee joint effusion. No suspicious soft tissue calcifications or masses. IMPRESSION: No acute bony abnormality. Reviewed by: Rimma Hickman MD, PhD on 12/22/2023 4:53 PM CHIKA Approved by: Rimma Hickman MD, PhD on 12/22/2023 4:53 PM AKDT Station ID: [id number]
== END 2023-12-22 17:27 | disposition home or self-care (01) ==
LOC: ED 16:33
DX: S89.92XA Unspecified injury of left lower leg, initial encounter (principal); W20.8XXA Other cause of strike by thrown, projected or falling object, initial encounter
CPT/HCPCS: 73564; 99283; 99284; A9270

== ENCOUNTER 2024-01-15 17:28 | Outpatient (CLI) | payer MEDICAID | END 2024-01-15 23:59 | disposition critical access hospital (66) | LOC: EMS 17:28 | DX: M25.511 Pain in right shoulder (principal); M25.562 Pain in left knee; W10.8XXA Fall (on) (from) other stairs and steps, initial encounter; Y92.008 Other place in unspecified non-institutional (private) residence as the place of occurrence of the external cause | CPT/HCPCS: A0425; A0429; A0999 ==

== ENCOUNTER 2024-01-15 17:48 | Emergency (ER) | payer MEDICAID ==
[2024-01-15] MEDS: oxyCODONE 5 MG TABLET PO STA (18:28)
--- NOTE | 2024-01-15 18:48 | CT Report ---
PROCEDURE: Head WO INDICATIONS: fall, head injury TECHNIQUE: Noncontrast 4.5 mm thick angled axial sections acquired from the foramen magnum to the vertex. For r adiation dose reduction, the following was used: automated exposure control, adjustment of mA and/or kV according to patient size. COMPARISON: 10/16/2023. FINDINGS: Image quality: Excellent. CSF spaces: Basal cisterns are patent. No extra-axial fluid collections. Ventricles are normal in size and shape. Brain: No midline shift. No intracranial masses or hemorrhage. [place]-white matter interface is norm al. Skull and face: Calvarium and visualized facial bones are intact, without suspicious lesions. Sinuses: Visualized sinuses and mastoids are clear. IMPRESSION: No acute intracranial pathology. Reviewed by: Barrera Stone MD on 01/15/2024 6:47 PM PDT Approved by: Barrera Stone MD on 01/15/2024 6:47 PM PDT Station ID: [id number]
--- NOTE | 2024-01-15 19:05 | ED Physician Documentation ---
History of Present Illness - Stated complaint Stated Complaint: GLF - Chief complaint Chief Complaint: General - History obtained from History obtained from: Patient, EMS - History of Present Illness Timing: Today Pain level max: 8 Pain level now: 8 - Additonal information Additional information: Patient is a 28-year-old female who states that she tripped and fell walking out of her house, fell down the stairs and landed on her children's scooters. She is complaining of head pain, right shoulder pain, right rib pain, left knee pain and left ankle pain. Worse with walking, better with rest. She is on oxycodone for pain at home. No loss of consciousness. No neck or back pain. No numbness or tingling. No loss of consciousness. No vomiting. No confusion. No abdominal pain or chest pain. Denies any possibility of . 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: Hysterectomy, Oophrectomy - Present Medications Home Medications: Ambulatory Orders Medication Instructions Recorded Confirmed Sertraline HCl 100 mg PO DAILY 12/30/20 11/13/23 diazePAM [Valium] 10 mg PO TID 12/30/20 11/13/23 Trazodone HCl 100 mg ORAL HS 11/03/22 11/13/23 lamoTRIgine [LaMICtal] 100 mg PO DAILY 05/18/23 11/13/23 lamoTRIgine [Lamictal] 200 mg PO HS 05/18/23 11/13/23 Albuterol [Proventil Hfa] 1 - 2 puffs IH Q4HR PRN 06/25/23 11/13/23 Sucralfate [Carafate] 1 gm PO HS 06/25/23 11/13/23 HYDROcod/ACETAM 5/325 [[place] 5/325] 1 tablet PO BID PRN #10 tablet 07/30/23 11/13/23 Levetiracetam [Keppra] 500 mg PO BID #20 tablet 08/03/23 11/13/23 Oxycodone HCl/Acetaminophen 1 - 2 each PO Q6H PRN #10 tablet 08/13/23 11/13/23 [Percocet 5-325 mg Tablet] levoFLOXacin [Levaquin] 500 mg PO QD 7 Days #14 tablet 09/29/23 11/13/23 methocarbamoL [Robaxin] 500 mg PO Q6H PRN #20 tablet 01/15/24 - Allergies Allergies/Adverse Reactions: Allergies Allergy/AdvReac Type Severity Reaction Status Date / Time adhesive Allergy Rash Verified 01/15/24 18:10 Cephalosporins Allergy Hives Verified 01/15/24 18:10 Iodinated Contrast Media Allergy Anaphylaxis Verified 01/15/24 18:10 latex Allergy Rash Verified 01/15/24 18:10 lidocaine Allergy Unknown Verified 01/15/24 18:10 morphine Allergy Rash Verified 01/15/24 18:10 Penicillins Allergy Hives Verified 01/15/24 18:10 ketorolac [From Toradol] AdvReac Cramps Verified 01/15/24 18:10 all antibiotic except Allergy Anaphylaxis Uncoded 01/15/24 18:10 levaquin - Social History Does the pt smoke?: No Smoking Status: Never smoker Does the pt drink ETOH?: No Does the pt have substance abuse?: No - Immunizations Immunizations are current?: Yes - POLST Patient has POLST: No PD ED PE NORMAL - Vitals Vital signs reviewed: Yes - General General: Alert and oriented X 3, No acute distress, Well developed/nourished - HEENT HEENT: Atraumatic, PERRL, EOMI, Ears normal, Moist mucous membranes, Pharynx benign - Neck Neck: Supple, no meningeal sign, No bony TTP, C-Spine cleared by NEXUS criteria - Cardiac Cardiac: RRR - Respiratory Respiratory: No respiratory distress, Clear bilaterally - Abdomen Abdomen: Soft, Non tender, Non distended - Back Back: No CVA TTP, No spinal TTP - Derm Derm: Warm and dry - Extremities Extremities: No deformity, Other - Neuro Neuro: Alert and oriented X 3, display director 2-12 intact, No motor deficit, No sensory deficit, Normal speech Eye Opening: Spontaneous Motor: Obeys Commands Verbal: Oriented GCS Score: 15 - Psych Psych: Normal mood, Normal affect - Free text exam Free text exam: Limited range of motion of the right shoulder secondary to pain. No gross deformity. Neurovascular intact including the axillary nerve. Also tender to palpation over the right lower ribs. No crepitus. No ecchymosis. Tenderness in the lateral aspect of the ribs, approximately 8 through 10. She also has diffuse tenderness over the left knee. No deformity. No significant swelling. No bruising. No joint effusion. Unable to fully tolerate ligamentous testing, but no gross abnormality of the ACL, MCL, PCL or LCL. She is also holding her left ankle and slight inversion. She is neurovascularly intact but does have some tenderness around the ankle. No other tenderness over the foot. Otherwise normal examination of all 4 extremities. Results - Vitals Vitals: Vital Signs - 24 hr 01/15/24 01/15/24 18:10 21:32 Temperature 36.7 C Heart Rate 94 74 Respiratory 16 16 Rate Blood Pressure 133/102 H 146/76 H O2 Saturation 100 99 Oxygen O2 Source Room air - Rads (name of study) head CT Relevant Findings:: Final report received, See rad report R shoulder xray Relevant Findings:: Final report received, See rad report R rib xray Relevant Findings:: Final report received, See rad report L knee xray Relevant Findings:: Final report received, See rad report L ankle xray Relevant Findings:: Final report received, See rad report PD Medical Decision Making - ED course Complexity details: reviewed results, re-evaluated patient, considered differential, d/w patient ED course: No acute findings on x-ray. Pain well-controlled with Dilaudid here. She w anted something to help take pressure off of her left knee and left ankle, due to the pain in the right shoulder crutches would be difficult so she was given a walker. She has oxycodone 10 mg at home for pain. Who will add a muscle relaxant for a few days. Neurovascular intact. No acute findings on head CT. Patient counseled regarding signs and symptoms for which I believe and urgent re-evaluation would be necessary. Patient with good understanding of and agreement to plan and is comfortable going home at this time This document was made in part using voice recognition software. While efforts are made to proofread this document, sound alike and grammatical errors may occur. Departure - Departure Disposition: 01 Home, Self Care Clinical Impression: Shoulder contusion Qualifiers: Encounter type: initial encounter Laterality: right Qualified Code(s): S40.011A - Contusion of right shoulder, initial encounter Rib contusion Qualifiers: Encounter type: initial encounter Laterality: right Qualified Code(s): S20.211A - Contusion of right front wall of thorax, initial encounter Left knee sprain Qualifiers: Encounter type: initial encounter Involved ligament of knee: unspecified ligament Qualified Code(s): S83.92XA - Sprain of unspecified site of left knee, initial encounter Left ankle sprain Qualifiers: Encounter type: initial encounter Involved ligament of ankle: unspecified ligament Qualified Code(s): S93.402A - Sprain of unspecified ligament of left ankle, initial encounter Condition: Good Instructions: ED Contusion Chest Wall, ED Sprain Knee, ED Sprain Ankle Follow-Up: NIKOLAS GARDNER ARNP [Primary Care Provider] - Within 1 week Prescriptions: methocarbamoL [Robaxin] 500 mg PO Q6H PRN #20 tablet PRN Reason: muscle spasm Comments: Your prescription was sent to [facility] in [place]. You can use the walker to help take pressure off of your knee and ankle. Please follow-up with your doctor for further care. You can continue your oxycodone as prescribed at home. Return if you worsen. Your x-rays and CT scans do not show any acute abnormalities today. Forms: PCP List Discharge Date/Time: 01/15/24 21:32
--- NOTE | 2024-01-15 19:23 | XRAY Report ---
PROCEDURE: Ankle 3+V LT INDICATIONS: fall, pain TECHNIQUE: 3 views of the ankle were acquired. COMPARISON: 10/16/2023. FINDINGS: Bones: No fractures or dislocations. Ankle mortise is normally aligned. No suspicious bony lesions . Soft tissues: No tibiotalar joint effusion. Achilles tendon appears normal. IMPRESSION: No acute bony abnormality. If pain persists with conservative management, consider repeat x-ray in 10 -14 days or cross-sectional imaging. Reviewed by: Barrera Stone MD on 01/15/2024 7:22 PM PDT Approved by: Barrera Stone MD on 01/15/2024 7:22 PM PDT Station ID: [id number]
--- NOTE | 2024-01-15 19:31 | XRAY Report ---
PROCEDURE: Shoulder 2+V RT INDICATIONS: fall, pain TECHNIQUE: 3 views of the shoulder were acquired. COMPARISON: 10/16/2023. FINDINGS: Bones: No fractures or dislocations. No suspicious bony lesions. Visualized ribs appear intact. Soft tissues: No suspicious soft tissue calcifications. The visualized lungs are within normal limi ts. IMPRESSION: No acute bony abnormality. Reviewed by: Barrera Stone MD on 01/15/2024 7:29 PM PDT Approved by: Barrera Stone MD on 01/15/2024 7:29 PM PDT Station ID: [id number]
--- NOTE | 2024-01-15 19:31 | XRAY Report ---
PROCEDURE: Ribs w/PA Chest 3+V RT INDICATIONS: fall, pain TECHNIQUE: 2 views of the ribs were acquired, along with a single view chest. COMPARISON: 11/13/2023. FINDINGS: Surgical changes and devices: None. Bones and chest wall: No fractures or dislocations. No suspicious bony lesions. Overlying soft tis sues appear unremarkable. Lungs and pleura: No pleural effusions or pneumothorax. Lungs appear clear. Mediastinum: Mediastinal contours appear normal. Heart size is normal. IMPRESSION: No displaced rib fracture or pneumothorax. Reviewed by: Barrera Stone MD on 01/15/2024 7:30 PM PDT Approved by: Barrera Stone MD on 01/15/2024 7:30 PM PDT Station ID: [id number]
--- NOTE | 2024-01-15 19:47 | XRAY Report ---
PROCEDURE: Knee 3V LT INDICATIONS: fall TECHNIQUE: 3 views of the knee(s) were acquired. COMPARISON: 12/22/2023 FINDINGS: Bones: No fractures or dislocations. No suspicious bony lesions. Soft tissues: No knee joint effusion. No suspicious soft tissue calcifications or masses. IMPRESSION: No acute bony abnormality. If pain persists with conservative management, consider repeat x-ray in 10 -14 days or cross-sectional imaging. Reviewed by: Barrera Stone MD on 01/15/2024 7:46 PM PDT Approved by: Barrera Stone MD on 01/15/2024 7:46 PM PDT Station ID: [id number]
[2024-01-15] MEDS: HYDROmorphone 1 MG/ML CARPUJECT IM STA ×2 (20:24→21:24)
[2024-01-15 21:35] VITALS: BP 146/76; O2SAT 99
== END 2024-01-15 21:32 | disposition home or self-care (01) ==
LOC: EDUNIT# → ED 17:48
DX: S83.92XA Sprain of unspecified site of left knee, initial encounter (principal); S93.402A Sprain of unspecified ligament of left ankle, initial encounter; S40.011A Contusion of right shoulder, initial encounter; S20.211A Contusion of right front wall of thorax, initial encounter; W10.9XXA Fall (on) (from) unspecified stairs and steps, initial encounter; Y93.01 Activity, walking, marching and hiking; Y92.007 Garden or yard of unspecified non-institutional (private) residence as the place of occurrence of the external cause; Z79.899 Other long term (current) drug therapy; Z91.040 Latex allergy status
CPT/HCPCS: 70450; 71101; 73030; 73562; 73610; 96372; 99284; A9270; J1170

== ENCOUNTER 2024-03-12 21:07 | Outpatient (CLI) | payer MEDICAID | END 2024-03-12 21:08 | disposition critical access hospital (66) | LOC: EMS 21:07 | DX: M79.662 Pain in left lower leg (principal); R07.89 Other chest pain | CPT/HCPCS: A0425; A0427; A0999 ==

== ENCOUNTER 2024-03-12 21:26 | Emergency (ER) | payer MEDICAID ==
[2024-03-12 22:14] LABS: BASOPHILS % (AUTO) 0.3 %; HCT - HEMATOCRIT 35.4 % (37.0-47.0); HGB - HEMOGLOBIN 12.7 g/dL (12.0-16.0); LYMPHOCYTES # (AUTO) 1.9 10^3/uL (1.5-3.5); LYMPHOCYTES % (AUTO) 27.9 %; MEAN CORPUSCULAR HEMOGLOBIN 31.3 pg (27.0-31.0); MEAN CORPUSCULAR HGB CONC 35.9 g/dL (32.0-36.0); MEAN CORPUSCULAR VOLUME 87.2 fL (81.0-99.0); MEAN PLATELET VOLUME 9.7 fL (7.9-10.8); MONOCYTES # (AUTO) 0.5 10^3/uL (0.0-1.0); MONOCYTES % (AUTO) 6.9 %; NEUTROPHILS # (AUTO) 4.4 10^3/uL (1.5-6.6); NEUTROPHILS % (AUTO) 64.8 %; PLT - PLATELET COUNT 250 10^3/uL (130-450); RED BLOOD COUNT 4.06 10^6/uL (4.20-5.40); RED CELL DISTRIBUTION WIDTH 12.3 % (12.0-15.0); WHITE BLOOD COUNT 6.8 x10^3/uL (4.8-10.8)
[2024-03-12] MEDS: KETOROLAC 30 MG/ML VIAL IVP STA (22:25)
[2024-03-12 22:27] LABS: ALBUMIN/GLOBULIN RATIO 1.6 (1.0-2.2); BILIRUBIN,TOTAL 0.7 mg/dL (0.2-1.0); CALCIUM 9.1 mg/dL (8.5-10.3); CREATININE 0.8 mg/dL (0.6-1.3); POTASSIUM 3.5 mmol/L (3.5-4.5); TOTAL PROTEIN 6.5 g/dL (6.4-8.9)
[2024-03-12] MEDS: ONDANSETRON 4 MG/2 ML VIAL IVP STA (22:37)
[2024-03-12] MEDS: HYDROmorphone 1 MG/ML CARPUJECT IVP STA (22:38)
--- NOTE | 2024-03-12 23:26 | Ultrasound Report ---
PROCEDURE: Duplex Ext Veins Left INDICATIONS: calf pain swelling after surgery last month TECHNIQUE: Real-time imaging, as well as color and pulse Doppler interrogation, were performed of the lower extr emity deep veins from the inguinal ligament to the popliteal fossa. Attempted visualization of the ca lf veins was performed. COMPARISON: None. FINDINGS: The deep veins are normally compressible, and free of intraluminal thrombus. Color and pu lse Doppler demonstrate normal phasic intraluminal flow. There is normal augmentation response to di stal compression maneuver. IMPRESSION: No deep venous thrombosis of the visualized lower extremity. Reviewed by: Krishna Smart MD on 03/12/2024 11:24 PM PDT Approved by: Krishna Smart MD on 03/12/2024 11:24 PM PDT Station ID: [id number]
--- NOTE | 2024-03-12 23:45 | ED Physician Documentation ---
PD HPI LOWER EXT INJURY - Stated complaint Stated Complaint: L LEG PX - Chief complaint Chief Complaint: Ext Problem - History obtained from History obtained from: Patient - History of Present Illness PD HPI LOW EXT INJURY LOCATION: Left, Lower leg Type of injury: Other (walking) Where injury occurred: Home Timing - onset: How many days ago (3) Timing - duration: Days (3) Timing - details: Gradual onset, Still present Improved by: Rest Worsened by: Moving, Palpating Associated symptoms: Swelling. No: Weakness, Numbness Contributing factors: Prior ortho surgery. No: Anticoagulated, Prosthetic joint Similar symptoms before: Diagnosis (DVT) Recently seen: Surgery - Additional information Additional information: Eileen Mendosa is a 29-year-old female who is had a recent surgery on her left ankle. She has had her left knee operated on as well within the past year. Following the surgery to her knee she developed a DVT and was on anticoagulation for 1 month. She presents to the emergency department today with pain and swelling to her left lower extremity 3 days after she began walking on it following her surgery. She is concerned about a DVT. Review of Systems Constitutional: denies: Fever Nose: denies: Congestion Throat: denies: Sore throat Respiratory: denies: Cough GI: denies: Vomiting, Diarrhea : denies: Dysuria, Frequency Skin: denies: Rash Musculoskeletal: reports: Extremity pain, Extremity swelling. 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: Ovarian cysts : Kidney stones HEENT: None Psych: Post traumatic stress disorder Musculoskeletal: None Derm: None - Past Surgical History Past Surgical History: Yes General: Cholecystectomy, Appendectomy Ortho: Other /SURFACING TECHNICIAN: Hysterectomy, Oophrectomy - Present Medications Home Medications: Ambulatory Orders Medication Instructions Recorded Confirmed Sertraline HCl 100 mg PO DAILY 12/30/20 11/13/23 diazePAM [Valium] 10 mg PO TID 12/30/20 11/13/23 Trazodone HCl 100 mg ORAL HS 11/03/22 11/13/23 lamoTRIgine [LaMICtal] 100 mg PO DAILY 05/18/23 11/13/23 lamoTRIgine [Lamictal] 200 mg PO HS 05/18/23 11/13/23 Albuterol [Proventil Hfa] 1 - 2 puffs IH Q4HR PRN 06/25/23 11/13/23 Sucralfate [Carafate] 1 gm PO HS 06/25/23 11/13/23 HYDROcod/ACETAM 5/325 [[place] 5/325] 1 tablet PO BID PRN #10 tablet 07/30/23 11/13/23 Levetiracetam [Keppra] 500 mg PO BID #20 tablet 08/03/23 11/13/23 Oxycodone HCl/Acetaminophen 1 - 2 each PO Q6H PRN #10 tablet 08/13/23 11/13/23 [Percocet 5-325 mg Tablet] levoFLOXacin [Levaquin] 500 mg PO QD 7 Days #14 tablet 09/29/23 11/13/23 methocarbamoL [Robaxin] 500 mg PO Q6H PRN #20 tablet 01/15/24 - Allergies Allergies/Adverse Reactions: Allergies Allergy/AdvReac Type Severity Reaction Status Date / Time adhesive Allergy Rash Verified 03/12/24 21:41 Cephalosporins Allergy Hives Verified 03/12/24 21:41 Iodinated Contrast Media Allergy Anaphylaxis Verified 03/12/24 21:41 latex Allergy Rash Verified 03/12/24 21:41 lidocaine Allergy Unknown Verified 03/12/24 21:41 morphine Allergy Rash Verified 03/12/24 21:41 Penicillins Allergy Hives Verified 03/12/24 21:41 ketorolac [From Toradol] AdvReac Cramps Verified 03/12/24 21:41 all antibiotic except Allergy Anaphylaxis Uncoded 03/12/24 21:41 levaquin - Social History Does the pt smoke?: No Smoking Status: Never smoker Does the pt drink ETOH?: No Does the pt have substance abuse?: No - Immunizations Immunizations are current?: Yes - POLST Patient has POLST: No PD ED PE NORMAL - Vitals Vital signs reviewed: Yes (normal) - General General: Alert and oriented X 3, No acute distress, Well developed/nourished - HEENT HEENT: Atraumatic, PERRL, EOMI - Respiratory Respiratory: No respiratory distress - Derm Derm: Normal color, Warm and dry, No rash - Extremities Extremities: Other (There are well-healed surgical scars to the left ankle and minimal swelling there is some tenderness to the posterior calf. 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, No motor deficit, No sensory deficit, Normal speech Eye Opening: Spontaneous Motor: Obeys Commands Verbal: Oriented GCS Score: 15 - Psych Psych: Normal mood, Normal affect Results - Vitals Vitals: Vital Signs - 24 hr 03/12/24 03/12/24 21:31 23:30 Temperature 36.8 C Heart Rate 73 83 Respiratory 14 14 Rate Blood Pressure 124/75 110/58 L O2 Saturation 98 100 Oxygen O2 Source Room air - Labs Labs: Laboratory Tests 03/12/24 03/12/24 03/12/24 22:08 22:08 22:08 WBC 6.8 RBC 4.06 L Hgb 12.7 Hct 35.4 L MCV 87.2 MCH 31.3 H MCHC 35.9 RDW 12.3 Plt Count 250 MPV 9.7 Neut # (Auto) 4.4 Lymph # (Auto) 1.9 [place] # (Auto) 0.5 Eos # (Auto) 0.0 Baso # (Auto) 0.0 Absolute Nucleated RBC 0.00 Nucleated RBC % 0.0 D-Dimer < 200.0 L Sodium 139 Potassium 3.5 Chloride 106 Carbon Dioxide 28 Anion Gap 5.0 L BUN 11 Creatinine 0.8 Estimated GFR (MDRD) 84 L Glucose 89 Calcium 9.1 Total Bilirubin 0.7 AST 12 ALT 14 Alkaline Phosphatase 39 L Total Protein 6.5 Albumin 4.0 Globulin 2.5 Albumin/Globulin Ratio 1.6 Lipase 17 - Rads (name of study) Duplex ultrasound Relevant Findings:: Prelim report reviewed, EMP independent interpretation of test, See rad report PD Medical Decision Making - ED course Complexity details: reviewed results, re-evaluated patient, considered differential, d/w patient, d/w family Reviewed Lab Results: We reviewed a complete blood count showing a normal white blood cell count normal hemoglobin hematocrit and platelets D-dimer is less than 200 chemistry shows normal electrolytes normal kidney and liver function. These laboratory studies are entirely reassuring for a benign process I do not contribute to any specific diagnosis. ED course: 29-year-old Eileen Mendosa presents to the emergency department with pain and swelling to her left lower extremity she was very dramatic with her pain behavior and requested pain medication. I initially ordered Toradol after asking her if she could take it and if it worked on her and she answered yes to both of these questions when the nurse went to give it to her she then said well I do have an allergy to it because I have erosive gastritis. We did administer Dilaudid to the patient and we did our due diligence and followed up with venous duplex ultrasound. This study was reassuring for absence of a DVT. This patient is postoperative and recently began walking again. This appears to be an injury related to improvement and increased activity. I have shared this with the patient. We expect improvement after a short rest. Departure - Departure Disposition: 01 Home, Self Care Clinical Impression: Strain of left calf muscle Condition: Stable Instructions: ED Strain Muscle Ext Follow-Up: NIKOLAS GARDNER ARNP [Physician No Access] - Comments: Eileen today it does not look like there is any evidence of a deep vein thrombosis in your calf. This is likely a strain of the muscle from walking when you have not been walking for some time. The expectation is you should have resolution of your pain within 2 to 3 days. Forms: PCP List Discharge Date/Time: 03/12/24 23:55
[2024-03-13 00:06] VITALS: BP 110/58; O2SAT 100
== END 2024-03-12 23:55 | disposition home or self-care (01) ==
LOC: EDUNIT# → EDBD → ED 21:26
DX: S86.812A Strain of other muscle(s) and tendon(s) at lower leg level, left leg, initial encounter (principal); Y93.01 Activity, walking, marching and hiking; Z88.6 Allergy status to analgesic agent
CPT/HCPCS: 36415; 80053; 83690; 85025; 85379; 93971; 96374; 96375; 99284; J1170

== ENCOUNTER 2024-03-16 16:49 | Outpatient (CLI) | payer MEDICAID | END 2024-03-16 23:59 | disposition short-term general hospital (02) | LOC: EMS 16:49 | DX: S99.912A Unspecified injury of left ankle, initial encounter (principal); W10.8XXA Fall (on) (from) other stairs and steps, initial encounter; Y92.008 Other place in unspecified non-institutional (private) residence as the place of occurrence of the external cause | CPT/HCPCS: A0425; A0427; A0999 ==

== ENCOUNTER 2024-03-21 21:48 | Outpatient (CLI) | payer MEDICAID | END 2024-03-21 21:49 | disposition critical access hospital (66) | LOC: EMS 21:48 | DX: R10.30 Lower abdominal pain, unspecified (principal); N93.9 Abnormal uterine and vaginal bleeding, unspecified; Z90.710 Acquired absence of both cervix and uterus | CPT/HCPCS: A0425; A0427; A0999 ==

== ENCOUNTER 2024-03-21 22:06 | Emergency (ER) | payer MEDICAID ==
[2024-03-21 22:27] LABS: BASOPHILS % (AUTO) 0.3 %; HGB - HEMOGLOBIN 13.4 g/dL (12.0-16.0); LYMPHOCYTES # (AUTO) 2.5 10^3/uL (1.5-3.5); LYMPHOCYTES % (AUTO) 23.8 %; MEAN CORPUSCULAR HEMOGLOBIN 30.5 pg (27.0-31.0); MEAN CORPUSCULAR HGB CONC 33.5 g/dL (32.0-36.0); MEAN CORPUSCULAR VOLUME 90.9 fL (81.0-99.0); MEAN PLATELET VOLUME 9.6 fL (7.9-10.8); MONOCYTES # (AUTO) 0.6 10^3/uL (0.0-1.0); NEUTROPHILS # (AUTO) 7.3 10^3/uL (1.5-6.6); NEUTROPHILS % (AUTO) 69.6 %; PLT - PLATELET COUNT 363 10^3/uL (130-450); RED CELL DISTRIBUTION WIDTH 12.6 % (12.0-15.0); WHITE BLOOD COUNT 10.4 x10^3/uL (4.8-10.8)
[2024-03-21 22:41] LABS: ALBUMIN 4.3 g/dL (3.2-5.5); ALBUMIN/GLOBULIN RATIO 1.6 (1.0-2.2); BILIRUBIN,TOTAL 0.4 mg/dL (0.2-1.0); CALCIUM 9.2 mg/dL (8.5-10.3); CREATININE 0.9 mg/dL (0.6-1.3); POTASSIUM 4.1 mmol/L (3.5-4.5)
[2024-03-21] MEDS: SODIUM CHLORIDE 0.9% 2,000 ML IV STA (22:58)
[2024-03-21] MEDS: DROPERIDOL 5 MG/2 ML VIAL IVP STA (22:58)
[2024-03-21] MEDS: diphenhydrAMINE INJ 50 MG/ML VIAL IVP STA (22:58)
[2024-03-21 23:16] LABS: ETOH - ETHANOL < 10.0 mg/dL
--- NOTE | 2024-03-22 | CT Report ---
PROCEDURE: Abdomen/Pelvis WO INDICATIONS: abd pain TECHNIQUE: A CT scan of the abdomen and pelvis was performed without the use of intravenous contrast. Images we re recorded and evaluated at appropriate window settings. Reformats: coronal and sagittal. For radiat ion dose reduction, the following was used: automated exposure control, adjustment of mA and/or kV ac cording to patient size. COMPARISON: 07/30/2023 FINDINGS: Image quality: Diagnostic. Lower chest: Unremarkable. Liver: No contour-deforming mass. Gallbladder: Surgically absent. Biliary tree: No intrahepatic or extrahepatic dilation, accounting for age. Spleen: No splenomegaly. Pancreas: No pancreatic ductal dilation. Adrenals: No adrenal nodule. Kidneys and ureters: No hydronephrosis. No contour-deforming mass. Stomach, bowel and peritoneum: No gastric or small bowel dilation. No abnormal wall thickening. No pa thologic free fluid. Surgical clips at the cecum, likely status post appendectomy. Lymph nodes: No central or retroperitoneal adenopathy. Vessels: No infrarenal aortic aneurysm. Reproductive organs: Unremarkable. Bladder: Bladder wall thickness is normal, accounting for underdistention. No calcified bladder stone s. Pelvic lymph nodes: No adenopathy by size criteria. Bones: No aggressive osseous abnormality. Other: No significant ventral or inguinal hernia. IMPRESSION: No acute findings within the abdomen or pelvis. Reviewed by: Barrera Stone MD on 03/21/2024 11:58 PM PDT Approved by: Barrera Stone MD on 03/21/2024 11:58 PM PDT Station ID: [email or web address]
--- NOTE | 2024-03-22 01:38 | ED Physician Documentation ---
History of Present Illness - Stated complaint Stated Complaint: ABD PX - Chief complaint Chief Complaint: Abd Pain - Additonal information Additional information: 29-year-old female presents to the emergency department with lower abdominal c ramping and vaginal bleeding.Reported symptoms began 2 hours ago. Endorses passage of large clots from the vagina. States previous hysterectomy and salpingectomy. 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: Ovarian cysts : Kidney stones HEENT: None Psych: Post traumatic stress disorder Musculoskeletal: None Derm: None - Past Surgical History Past Surgical History: Yes General: Cholecystectomy, Appendectomy Ortho: Other /BEATER ENGINEER: Hysterectomy - Present Medications Home Medications: Ambulatory Orders Medication Instructions Recorded Confirmed Sertraline HCl 100 mg PO DAILY 12/30/20 11/13/23 diazePAM [Valium] 10 mg PO TID 12/30/20 11/13/23 Trazodone HCl 100 mg ORAL HS 11/03/22 11/13/23 lamoTRIgine [LaMICtal] 100 mg PO DAILY 05/18/23 11/13/23 lamoTRIgine [Lamictal] 200 mg PO HS 05/18/23 11/13/23 Albuterol [Proventil Hfa] 1 - 2 puffs IH Q4HR PRN 06/25/23 11/13/23 Sucralfate [Carafate] 1 gm PO HS 06/25/23 11/13/23 HYDROcod/ACETAM 5/325 [[place] 5/325] 1 tablet PO BID PRN #10 tablet 07/30/23 11/13/23 Levetiracetam [Keppra] 500 mg PO BID #20 tablet 08/03/23 11/13/23 Oxycodone HCl/Acetaminophen 1 - 2 each PO Q6H PRN #10 tablet 08/13/23 11/13/23 [Percocet 5-325 mg Tablet] levoFLOXacin [Levaquin] 500 mg PO QD 7 Days #14 tablet 09/29/23 11/13/23 methocarbamoL [Robaxin] 500 mg PO Q6H PRN #20 tablet 01/15/24 - Allergies Allergies/Adverse Reactions: Allergies Allergy/AdvReac Type Severity Reaction Status Date / Time adhesive Allergy Rash Verified 03/21/24 22:15 Cephalosporins Allergy Hives Verified 03/21/24 22:15 Iodinated Contrast Media Allergy Anaphylaxis Verified 03/21/24 22:15 latex Allergy Rash Verified 03/21/24 22:15 lidocaine Allergy Unknown Verified 03/21/24 22:15 morphine Allergy Rash Verified 03/21/24 22:15 Penicillins Allergy Hives Verified 03/21/24 22:15 ketorolac [From Toradol] AdvReac Cramps Verified 03/21/24 22:15 all antibiotic except Allergy Anaphylaxis Uncoded 03/21/24 22:15 levaquin - Social History Does the pt smoke?: No Smoking Status: Never smoker Does the pt drink ETOH?: No Does the pt have substance abuse?: No - Immunizations Immunizations are current?: Yes - POLST Patient has POLST: No PD ED PE NORMAL - General General: Alert and oriented X 3, No acute distress, Well developed/nourished - HEENT HEENT: Atraumatic, PERRL, EOMI, Ears normal, Moist mucous membranes, Pharynx benign - Neck Neck: Supple, no meningeal sign, No bony TTP, No adenopathy, Thyroid normal, No JVD - Cardiac Cardiac: RRR, No murmur, No gallop, Strong equal pulses - Respiratory Respiratory: No respiratory distress, Clear bilaterally - Abdomen Abdomen: Normal bowel sounds, Non tender - Female Female : Deferred - Rectal Rectal: Deferred Results - Vitals Vitals: Vital Signs - 24 hr 03/21/24 03/21/24 03/22/24 22:12 23:06 01:00 Heart Rate 106 H 99 85 Respiratory 26 H 16 16 Rate Blood Pressure 141/71 H 132/85 H 137/56 H O2 Saturation 98 99 99 Oxygen O2 Source Room air - Labs Labs: Laboratory Tests 03/21/24 03/21/24 03/21/24 22:15 22:15 22:15 WBC 10.4 RBC 4.40 Hgb 13.4 Hct 40.0 MCV 90.9 MCH 30.5 MCHC 33.5 RDW 12.6 Plt Count 363 MPV 9.6 Neut # (Auto) 7.3 H Lymph # (Auto) 2.5 [place] # (Auto) 0.6 Eos # (Auto) 0.0 Baso # (Auto) 0.0 Absolute Nucleated RBC 0.00 Nucleated RBC % 0.0 Sodium 138 Potassium 4.1 Chloride 109 Carbon Dioxide 21 Anion Gap 8.0 BUN 16 Creatinine 0.9 Estimated GFR (MDRD) 73 L Glucose 126 H Calcium 9.2 Total Bilirubin 0.4 AST 24 ALT 14 Alkaline Phosphatase 50 Total Protein 7.0 Albumin 4.3 Globulin 2.7 Albumin/Globulin Ratio 1.6 Lipase 32 Beta HCG, Quant < 0.6 Ethyl Alcohol < 10.0 PD Medical Decision Making - ED course Complexity details: reviewed results, re-evaluated patient, considered differential ED course: 29-year-old female with past medical significant for hysterectomy presents abnormal vaginal bleeding. Afebrile, hematin stable on arrival to the emergency department. Patient significantly distressed on arrival. Had received 100 mics fentanyl prior to arrival. Given droperidol for symptomatic management as well as IV hydration. Patient symptoms significantly improved by droperidol. Labs all reassuring. No leukocytosis, anemia, hepatic or renal insufficiency or electrolyte abnormality. Her beta quantitative hCG is undetectable. Her CT scan of her abdomen and pelvis is similarly benign. She is monitored in the emergency department for several hours with no persistent bleeding. Will discharge at this time for follow-up with primary care/ENVIRONMENTAL HEALTH SPECIALIST as needed. Clear return precautions given. Departure - Departure Disposition: 01 Home, Self Care Clinical Impression: Vaginal bleeding Follow-Up: Brittany Lou MD [Provider Admit Priv/Credential] - Comments: Thank you for allowing us to care for you today at [facility]. Today in the emergency department you were evaluated for any possible dangerous or life-threatening medical emergency. All the testing performed in the emergency department today including your blood work and CT scan are reassuring. Your serum test is negative. There is no indication severe infection, blood loss anemia or other dangerous finding at this time. I have written The contact information for a local area ENVIRONMENTAL HEALTH SPECIALIST with whom you can follow-up. Motrin and Tylenol are excellent medications to take for any ongoing lower abdominal cramping. If it anytime you have new or worsening symptoms please return.
[2024-03-22 01:50] VITALS: BP 120/77; O2SAT 98
== END 2024-03-22 01:51 | disposition home or self-care (01) ==
LOC: EDUNIT# → ED 22:06
DX: N93.9 Abnormal uterine and vaginal bleeding, unspecified (principal)
CPT/HCPCS: 36415; 74176; 80053; 82077; 83690; 84702; 85025; 96374; 99283; 99284; J1200; 80306; 81001; 81003; 81025; 87086

== ENCOUNTER 2024-03-22 20:19 | Outpatient (CLI) | payer MEDICAID | END 2024-03-22 20:20 | disposition critical access hospital (66) | LOC: EMS 20:19 | DX: N93.9 Abnormal uterine and vaginal bleeding, unspecified (principal); R55 Syncope and collapse; R10.32 Left lower quadrant pain; R10.31 Right lower quadrant pain; R00.0 Tachycardia, unspecified | CPT/HCPCS: A0425; A0427; A0999 ==

== ENCOUNTER 2024-03-22 20:37 | Emergency (ER) | payer MEDICAID ==
--- NOTE | 2024-03-22 20:38 | ED Physician Documentation ---
History of Present Illness - Stated complaint Stated Complaint: /BLEEDING - History obtained from History obtained from: Patient, EMS - Additonal information Additional information: BIBA. HPI from patient, EMS. Patient complains of vaginal bleeding with clots over the past few days associated with waxing waning lower abdominal cramping, across the lower abdomen and anterior pelvis. She says that tonight while on the toilet passing some blood, she had loss of consciousness which she estimates to be no more than 1 minute. She says her daughter was present and prevented her from falling. Patient's past surgical history includes hysterectomy. Patient was treated and released for these same symptoms last night (was discharged shortly after midnight and thus actually was discharged early this morning). At that time, she had an unremarkable workup including CBC, ER abdominal panel, CT A/P. She had a serum hCG that was negative last night as well as undetectable serum ethanol level. This is her third [facility] ED visit this month. This is her 43rd [facility] ED visit on [facility] records since 2020. This is her 30th ED visit over the past 12 months to 4 different ED's. PD PAST MEDICAL HISTORY - Present Medications Home Medications: Ambulatory Orders Medication Instructions Recorded Confirmed Sertraline HCl 100 mg PO DAILY 12/30/20 11/13/23 diazePAM [Valium] 10 mg PO TID 12/30/20 11/13/23 Trazodone HCl 100 mg ORAL HS 11/03/22 11/13/23 lamoTRIgine [LaMICtal] 100 mg PO DAILY 05/18/23 11/13/23 lamoTRIgine [Lamictal] 200 mg PO HS 05/18/23 11/13/23 Albuterol [Proventil Hfa] 1 - 2 puffs IH Q4HR PRN 06/25/23 11/13/23 Sucralfate [Carafate] 1 gm PO HS 06/25/23 11/13/23 HYDROcod/ACETAM 5/325 [[place] 5/325] 1 tablet PO BID PRN #10 tablet 07/30/23 11/13/23 Levetiracetam [Keppra] 500 mg PO BID #20 tablet 08/03/23 11/13/23 Oxycodone HCl/Acetaminophen 1 - 2 each PO Q6H PRN #10 tablet 08/13/23 11/13/23 [Percocet 5-325 mg Tablet] levoFLOXacin [Levaquin] 500 mg PO QD 7 Days #14 tablet 09/29/23 11/13/23 methocarbamoL [Robaxin] 500 mg PO Q6H PRN #20 tablet 01/15/24 - Allergies Allergies/Adverse Reactions: Allergies Allergy/AdvReac Type Severity Reaction Status Date / Time adhesive Allergy Rash Verified 03/21/24 22:15 Cephalosporins Allergy Hives Verified 03/21/24 22:15 Iodinated Contrast Media Allergy Anaphylaxis Verified 03/22/24 20:43 latex Allergy Rash Verified 03/21/24 22:15 lidocaine Allergy Unknown Verified 03/21/24 22:15 morphine Allergy Rash Verified 03/21/24 22:15 Penicillins Allergy Hives Verified 03/21/24 22:15 ketorolac [From Toradol] AdvReac Cramps Verified 03/21/24 22:15 all antibiotic except Allergy Anaphylaxis Uncoded 03/21/24 22:15 levaquin PD ED PE NORMAL - Vitals Vital signs reviewed: Yes - General General: Alert and oriented X 3, Well developed/nourished, Other (appears anxious at times during H+P) - HEENT HEENT: Atraumatic, PERRL, EOMI, Moist mucous membranes - Neck Neck: Supple, no meningeal sign - Cardiac Cardiac: RRR, No murmur, No gallop, No rub - Respiratory Respiratory: No respiratory distress, Clear bilaterally - Abdomen Abdomen: Normal bowel sounds, Soft, Non tender, Non distended - Back Back: No CVA TTP - Derm Derm: Normal color, Warm and dry Results - Vitals Vitals: Oxygen O2 Source Room air - EKG (time done) No standard instances EKG releavant findings:: EKG personally interpreted by author of this note. Relevant findings are: Rate: Rate (enter#) (95) Rhythm: NSR [place]: Normal Intervals: Normal RI QRS: Normal Ischemia: Normal ST segments - Labs Labs: Laboratory Tests 03/22/24 03/22/24 20:54 20:54 WBC 10.7 RBC 4.28 Hgb 13.0 Hct 38.5 MCV 90.0 MCH 30.4 MCHC 33.8 RDW 12.8 Plt Count 333 MPV 9.7 Neut # (Auto) 6.7 H Lymph # (Auto) 3.2 [place] # (Auto) 0.8 Eos # (Auto) 0.0 Baso # (Auto) 0.0 Absolute Nucleated RBC 0.00 Nucleated RBC % 0.0 Sodium 138 Potassium 4.2 Chloride 107 Carbon Dioxide 23 Anion Gap 8.0 BUN 12 Creatinine 0.8 Estimated GFR (MDRD) 84 L Glucose 108 H Calcium 9.1 PD Medical Decision Making - ED course Complexity details: reviewed results, re-evaluated patient, considered differential, d/w patient ED course: Patient is given 1 L normal saline IV as well as 2.5 mg of droperidol; the latter mostly for anxiolysis although she did have some nausea complaints (without vomiting). CBC is normal except for elevated neutrophil count. BMP normal. On reevaluation, the patient is asleep, awakens to verbal stimulus. She is in NAD reports feeling much improved. Results discussed with patient. Return precautions are reviewed. Advised to contact her primary care provider when the office next opens to arrange for the next available appointment for follow- up/reevaluation. The cause of her symptoms and her syncopal episode is not apparent at this time. Departure - Departure Disposition: 01 Home, Self Care Clinical Impression: Vaginal bleeding Abdominal pain Qualifiers: Abdominal location: generalized Qualified Code(s): R10.84 - Generalized abdominal pain Syncope Qualifiers: Syncope type: unspecified Qualified Code(s): R55 - Syncope and collapse Condition: Good Instructions: ED Abdominal Pain Female Non-Specific Abdominal Pain, ED Bleed Irregular Vaginal, ED Fainting Unkn Cause Comments: There were no concerning nor diagnostic findings on tonight's blood tests, EKG. The cause of your symptoms is not apparent at this time. Contact your primary care provider's office when they are next open to arrange for the next available appointment for follow-up/reevaluation. Forms: PCP List Discharge Date/Time: 03/22/24 23:51
[2024-03-22 20:54] VITALS: O2SAT 99
[2024-03-22 21:00] LABS: BASOPHILS % (AUTO) 0.3 %; HCT - HEMATOCRIT 38.5 % (37.0-47.0); LYMPHOCYTES # (AUTO) 3.2 10^3/uL (1.5-3.5); LYMPHOCYTES % (AUTO) 29.7 %; MEAN CORPUSCULAR HEMOGLOBIN 30.4 pg (27.0-31.0); MEAN CORPUSCULAR HGB CONC 33.8 g/dL (32.0-36.0); MEAN PLATELET VOLUME 9.7 fL (7.9-10.8); MONOCYTES # (AUTO) 0.8 10^3/uL (0.0-1.0); MONOCYTES % (AUTO) 7.6 %; NEUTROPHILS # (AUTO) 6.7 10^3/uL (1.5-6.6); NEUTROPHILS % (AUTO) 62.2 %; PLT - PLATELET COUNT 333 10^3/uL (130-450); RED BLOOD COUNT 4.28 10^6/uL (4.20-5.40); RED CELL DISTRIBUTION WIDTH 12.8 % (12.0-15.0); WHITE BLOOD COUNT 10.7 x10^3/uL (4.8-10.8)
[2024-03-22] MEDS: SODIUM CHLORIDE 0.9% 1,000 ML IV STA (21:17)
[2024-03-22] MEDS: DROPERIDOL 5 MG/2 ML VIAL IVP STA (21:17)
[2024-03-22 21:27] LABS: CALCIUM 9.1 mg/dL (8.5-10.3); CREATININE 0.8 mg/dL (0.6-1.3); POTASSIUM 4.2 mmol/L (3.5-4.5)
[2024-03-22 23:36] VITALS: BP 146/86
== END 2024-03-22 23:51 | disposition home or self-care (01) ==
LOC: EDUNIT# → ED 20:37
DX: R55 Syncope and collapse (principal); N93.9 Abnormal uterine and vaginal bleeding, unspecified; R10.84 Generalized abdominal pain
CPT/HCPCS: 36415; 80048; 85025; 93005; 96374; 99283